=== PATIENT | female | born 1975 ===

== ENCOUNTER 2023-04-29 00:51 | Emergency (ER) | payer MEDICARE, MEDICAID, SELFPAY ==
[2023-04-29 00:54] VITALS: BP 99/67; PULSE 64; RESP 16; TEMP 36.1; O2SAT 100; BMI 29.2
--- NOTE | 2023-04-29 01:24 | ED_ITS ---
HPI - General Adult General Chief complaint: Abdominal Pain Stated complaint: Abdominal Pain Time Seen by Provider: 04/29/23 01:13 Source: patient Mode of arrival: ambulatory Limitations: no limitations History of Present Illness HPI narrative: Rule female coming in today complaining of 22 hours of diffuse abdominal discomfort. Nothing makes it better or worse. Pain is located everywhere from the bottom of the chest all the way down to the suprapubic area. She denies nausea or vomiting. No fevers or chills. She has been eating today without difficulty, had a piece of pizza about 1 hour ago. Patient's past medical history is complex: Chronic anemia, chronic abdominal pain, multiple sclerosis, unspecified visual loss that has resolved, chronic pain syndrome with chronic back pain, abdominal and leg pain, depression, eating disorder, personality disorder, ADHD, lupus, rheumatoid arthritis, vitamin-D deficiency, insomnia, neurogenic bladder with suprapubic catheter in place, subclinical hypothyroidism, hypersomnolence disorder during the daytime, history of narcotic use on a controlled substance agreement, asthma, recurrent myalgia and myositis, history of optic nerve injury, sensory ataxia, COPD, medical cannabis use, type 2 diabetes Past surgical history includes cataract removal, it EGD, cholecystectomy, total abdominal hysterectomy and bilateral salpingo oophorectomy, tonsillectomy and adenoidectomy, suprapubic catheter insertion. Medications include Adderall amantadine Abilify Lipitor Zyrtec dimethyl fumarate Trulicity Lunesta Pepcid Flonase Synthroid Linzess omeprazole Zofran Ditropan oxycodone Paxil MiraLax Zanaflex Valtrex Related Data Previous Rx's Medication Instructions Recorded sulfamethoxazole 800 1 tab PO BID 5 days #10 tabs 04/29/23 mg-trimethoprim 160 mg tablet (Bactrim DS) Allergies Allergy/AdvReac Type Severity Reaction Status Date / Time hydromorphone [From Dilaudid] Allergy Intermediate Chest Pain Verified 04/29/23 01:00 morphine Allergy Intermediate Chest Pain Verified 04/29/23 01:00 Penicillins Allergy Intermediate Hives Verified 04/29/23 01:00 Review of Systems Status of ROS: Reports: 10 or more systems reviewed and unremarkable except as noted in History and below Exam Narrative: Exam Narrative: Well-nourished well-developed patient in no acute distress. Alert and oriented x3. Answers questions appropriately. Mood and affect are appropriate. Thoughts are goal oriented and rational. No tangential or magical thinking noted. Patient speaks in full sentences without needing to catch her breath. Patient is not appear ill or toxic. Lying in bed comfortably. HEENT: Normocephalic atraumatic. Pupils are equally round reactive to light. Extraocular muscles are intact, does have strabismus. Conjunctivae are moist without any icterus noted. Moist mucous membranes. Posterior pharynx is normal. Neck is soft without any lymphadenopathy or thyromegaly. No masses are appreciated. Cardiovascular: Heart is regular rate and rhythm S1 and S2 are present without any murmurs. Lungs: Clear to auscultation bilaterally no wheezes rhonchi or rales are appreciated. Patient takes deep breaths without any discomfort. Abdomen: Soft and nondistended with normal bowel sounds. With palpation patient complains of pain with any touch, however, when I am auscultating with a stethoscope, I can apply very firm pressure with the stethoscope and patient does not complain of discomfort anywhere. Suprapubic catheters in place. She does smell strongly of urine. The skin around the catheter is red and irritated. Extremities: Bilateral lower extremities are without edema. Normal DP and PT pulses. Skin: Well perfused. Const: Vital Signs, click to edit/add: Vital Signs - 24 hr 04/29/23 00:54 Temperature 97.0 F L Pulse Rate [Left P ulse Oximeter] 64 Respiratory Rate 16 Blood Pressure [Ri ght Upper Arm] 99/67 Pulse Oximetry 100 Oxygen Delivery Me thod Room Air Course Vital Signs Vital signs: Initial Vital Signs Temperature 97.0 F L 04/29/23 00:54 Temperature Source Temporal Artery Scan 04/29/23 00:54 Pulse Rate 64 04/29/23 00:54 Pulse Rhythm Regular 04/29/23 00:54 Respiratory Rate 16 04/29/23 00:54 Blood Pressure 99/67 04/29/23 00:54 Blood Pressure Mean 77 04/29/23 00:54 Blood Pressure Position Sitting 04/29/23 00:54 Pulse Oximetry 100 04/29/23 00:54 Oxygen Delivery Method Room Air 04/29/23 00:54 Vital Signs Temperature 97.0 F L 04/29/23 00:54 Pulse Rate 64 04/29/23 00:54 Respiratory Rate 16 04/29/23 00:54 Blood Pressure 99/67 04/29/23 00:54 Pulse Oximetry 100 04/29/23 00:54 Oxygen Delivery Method Room Air 04/29/23 00:54 Temperature 97.0 F L 04/29/23 00:54 Pulse Rate 64 04/29/23 00:54 Respiratory Rate 16 04/29/23 00:54 Blood Pressure 99/67 04/29/23 00:54 Pulse Oximetry 100 04/29/23 00:54 Oxygen Delivery Method Room Air 04/29/23 00:54 Medical Decision Making MDM Narrative Medical decision making narrative: 48-year-old female coming in today complaining of abdominal discomfort. Her exam is quite benign. She has been eating and drinking without difficulty. She is not having any fevers or chills. She is not having diarrhea. She is not having any changes in the color or smell of her urine. At this time we discussed suprapubic catheter hygiene and skin cares around the catheter. concerned about the possibility of developing infection in that area so put her on Bactrim DS p.o. b.i.d.. Medical Records Medical records reviewed: Yes I reviewed the patient's medical records Discharge Plan Discharge Additional Instructions: Keep area around the suprapubic catheter clean and dry. Recommend placing a towel in the urine change in that tall frequently throughout the day. You should follow-up with your primary care provider or surgeon to discuss placement of this catheter and if it needs to be changed. Okay to start antibiotic tomorrow for infection of the skin around the suprapubic catheter site. Prescriptions: New sulfamethoxazole-trimethoprim [Bactrim DS] 800-160 mg tablet 1 tab PO BID 5 Days Qty: 10 0RF Stand Alone Forms: [employer] Info Instructions
== END 2023-04-29 01:42 | disposition home or self-care (01) ==
LOC: ED 01:33
PROVIDERS: Emergency Provider Family Medicine; PCP Physician Assistant
DX: R10.9 Unspecified abdominal pain (principal)
CPT/HCPCS: 99283; 99284

== ENCOUNTER 2023-07-04 10:04 | Outpatient (CLI) | payer MEDICARE, MEDICAID, SELFPAY ==
--- OUTSIDE RECORDS SUMMARY | 2023-07-04 10:20 | XMS_ITS | Referral Summary ---
Author Organization [facility] Address [address] [place] [id number] Care Team Providers Care Crocheter Name Role Phone Roddy Trevino Primary Care Provider [phone] Allergies Active Allergy Reactions Criticality Noted Date Comments Propoxyphene N-Apap 10/01/2008 Valproic Acid Other (See Comments),Rash High 01/16/2013 Other reaction= chest pain Rash was Itchy Ibuprofen Other (See Comments) 10/01/2008 Tongue swells Latex 10/01/2008 Morphine And Codeine Itching 10/01/2008 Zoloft 10/01/2008 Medications Medication Sig Dispensed Refills Start Date End Date Status VALTREX 500 MG OR TABS 1 TABLET DAILY Active OMEPRAZOLE 20 MG OR CPDR 1 CAPSULE DAILY Active RESTASIS 0.05 % OP EMUL 2 times daily Active EPI E-Z PEN KIRAN 1:1000 IJ 1 TIME ONLY as needed Active HYDROXYZINE HCL POIndications:Relapsin g-remitting multiple sclerosis (H),Personal history of urinary tract infection,Hematuria Take 50 mg by mouth Active RaNITidine HCl (ZANTAC PO)Indications:Relapsi ng-remitting multiple sclerosis (H),Personal history of urinary tract infection,Hematuria Take 150 mg by mouth Active Varenicline Tartrate (CHANTIX PO)Indications:Relapsi ng-remitting multiple sclerosis (H),Personal history of urinary tract infection,Hematuria Take 1 mg by mouth Active DULoxetine HCl (CYMBALTA PO)Indications:Relapsi ng-remitting multiple sclerosis (H),Personal history of urinary tract infection,Hematuria Take 60 mg by mouth Active NORTRIPTYLINE HCL POIndications:Relapsin g-remitting multiple sclerosis (H),Personal history of urinary tract infection,Hematuria Take 150 mg by mouth Active Cyclobenzaprine HCl (FLEXERIL PO)Indications:Relapsi ng-remitting multiple sclerosis (H),Personal history of urinary tract infection,Hematuria Activ e Linaclotide (LINZESS PO)Indications:Relapsi ng-remitting multiple sclerosis (H),Personal history of urinary tract infection,Hematuria Take 145 mcg by mouth every morning (before breakfast) Active Active Problems Problem Noted Date Diagnosed Date Relapsing-remitting multiple sclerosis 7 Immunizations Name Administration Dates Next Due Flu, Unspecified 11/09/2009 TDAP (Adacel,Boostrix) 06/01/2011 Social History Tobacco Use Types Packs/Day Years Used Date Smoking Tobacco: Every Day Cigarettes Smokeless Tobacco: Never Tobacco Cessation:Ready to Q uit: Yes; Counseling Given: Yes Alcohol Use Standard Drinks/Week Comments No 0 (1 standard drink = 0.6 oz pur e alcohol) Sex and Gender Information Value Date Recorded Sex Assigned at Not on file Gender Identity Not on file Sexual Orientation Not on file Last Filed Vital Signs Vital Sign Reading Time Taken Comments Blood Pressure 114/69 07/11/2017 7:00 PM CDT Simultaneous filing. User may not have seen previous data. Pulse 99 07/11/2017 7:00 PM CDT Temperature 36.6 ??C (97.9 ??F) 07/11/2017 2 :08 PM CDT Respiratory Rate 14 07/11/2017 7:00 PM CDT Oxygen Saturation 92% 07/11/2017 7:0 0 PM CDT Inhaled Oxygen Concentration - - Weight 90.1 kg (198 lb 9.6 oz) 04/10/2012 9:25 AM IT SUPPORT ENGINEER Height 171 cm (5' 7.32) 04/10/2012 9:2 5 AM IT SUPPORT ENGINEER Body Mass Index 30.81 04/10/2012 9:25 AM IT SUPPORT ENGINEER Plan of Treatment Not on file Care Teams Crocheter Relationship Specialty Start Date End Date Roddy Trevino PCP - General 12/14/10
--- OUTSIDE RECORDS SUMMARY | 2023-07-04 10:20 | XMS_ITS | Clinical Summary ---
Author Organization [facility] Address [address] [place] [id number] Care Team Providers Care Inspector Outside Production Name Role Phone Roddy Trveino Primary Care Provider [phone] Allergies Active Allergy Reactions Criticality Noted Date [...] (198 lb 9.6 oz) 04/10/2012 9:25 AM FIELD TRAFFIC INVESTIGATOR Height 171 cm (5' 7.32) 04/10/2012 9:2 5 AM FIELD TRAFFIC INVESTIGATOR Body Mass Index 30.81 04/10/2012 9:25 AM FIELD TRAFFIC INVESTIGATOR Plan of Treatment Not on file Care Teams Inspector Outside Production Relationship Specialty Start Date End Date Roddy Trevino PCP - General 12/14/10
--- OUTSIDE RECORDS SUMMARY | 2023-07-04 10:21 | XMS_ITS | Patient Health Record ---
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 Name Role Phone Laurence Mujica Primary Care Provider UnavailDavid Tripathi Unavailable [phone] Raymond Jurado DO Unavailable Unavailable Victor Hugo Wheat Unavailable [phone] Anton Griffin Unavailable [phone] Rod Golden Unavailable [phone] Fabian Walsh Unavailable [phone] ALLERGIES Allergen (clinical drug ingredient) Drug/Non Drug Allergy documented on EMR Reaction Allergy Type Onset Date Status fentanyl Fentanyl Hallucinations Drug Allergy Ac tive RESULTS Component Value Reference Range Notes Urine toxicology Reviewed date:08/31/2022 02:01:33 PM Interpretation:See Results Performing Lab: Notes/Report: See Results CARLOS Buprenophine OPI 300 1000 AMP Ethanol MET Creatinine MDMA pH Specific [place] BAR BZO OXY See Results MTD Urine toxicology Reviewed date:08/31/2022 02:01:33 PM Interpretation:See Results Performing Lab: Notes/Report: See Results CARLOS Buprenophine OPI 300 1000 AMP Ethanol MET Creatinine MDMA pH Specific [place] BAR BZO OXY See Results MTD Urine toxicology Reviewed date:05/21/2023 12:21:59 PM Interpretation:See Results Performing Lab: Notes/Report: See Results CARLOS Buprenophine OPI 300 0 AMP Ethanol MET Creatinine MDMA pH Specific [place] BAR BZO OXY See Results MTD Urine toxicology Reviewed date:05/21/2023 12:21:59 PM Interpretation:See Results Performing Lab: Notes/Report: See Results CARLOS Buprenophine OPI 300 0 AMP Ethanol MET Creatinine MDMA pH Specific [place] BAR BZO OXY See Results MTD Urine toxicology Reviewed date:11/14/2022 03:40:36 PM Interpretation:See Results Performing Lab: Notes/Report: See Results CARLOS Buprenophine OPI 300 0 AMP Ethanol MET Creatinine MDMA pH Specific [place] BAR BZO OXY See Results MTD Urine toxicology Reviewed date:11/14/2022 03:40:36 PM Interpretation:See Results Performing Lab: Notes/Report: See Results CARLOS Buprenophine OPI 300 0 AMP Ethanol MET Creatinine MDMA pH Specific [place] BAR BZO OXY See Results MTD Urine toxicology Reviewed date:03/07/2023 03:21:55 PM Interpretation:See Results Performing Lab: Notes/Report: See Results CARLOS Buprenophine OPI 300 1000 AMP Ethanol MET Creatinine MDMA pH Specific [place] BAR BZO OXY See Results MTD REASON FOR REFERRAL No Information MEDICATIONS Medication SIG (Take, Route, Fr equency, Duration) Notes Start Date End Date Status oxyCODONE HCl 10 MG 1 tablet as needed O rally (ok to fill 07/06/2023 to start 07/10/23) every 6 hrs for 30 days 06/06/2023 Active SOCIAL HISTORY Tobacco Use: Social History Observation Description Date Details (start date - stop date) Former Smoker NA - 09/05/2022 Sex Assigned At : Social History Observation Description Sex Assigned At Unknown Tobacco Use/Smoking: Question Answer Notes Are you a former smoker when did you quit smoking 09/05/2022 Alcohol Screen Question Answer Notes Did you have a drink containing alcohol in the p ast year? No Points 0 Interpretation Negative PROBLEMS Problem Type ICD Code Onset Dates Problem Status W/U Status Risk SNOMED Code Notes Problem Opioid dependence, uncomplicated (F11.20) Active confirmed Opioid dependence (88803524) Problem Personality disorder, unspecified (F60.9) 9 Active confirmed Unspecified Personality Disorder; rule out mixed ( borderline, dependent, negativistic, explosive traits); rule out organic (59650657) Problem Other chronic pain (G89.29) Active confirmed Chronic pain (96797309) Problem Rheumatoid arthritis, unspecified (M06.9) Active confirmed Rheumatoid arthritis (85633896) Problem Systemic lupus erythematosus, unspecified (M32.9) Active confirmed Systemic lupus erythematosus (75114153) Problem Pain in leg, unspecified (M79.606) Active confirmed Pain in limb (07558960) Problem Fibromyalgia (M79.7) Active confirmed Fibromyalgia (768832670) VITAL SIGNS Blood pressure diastolic 72 mm Hg 06/06/2023 Height 69 in 06/06/2023 Blood pressure systolic 118 mm Hg 06/06/2023 Weight 187 lbs 06/06/2023 BMI 27.61 kg/m2 06/06/2023 Encounters Encounter Location Date Provider Diagnosis [facility] [address] [place] [address] 07/04/2022 Anton Bolick Pain in leg, unspecified M79.606 ; Fibromyalgia M79.7 and Other chronic pain G89.29 [facility] [address] [place] [address] 07/04/2022 Anton Bolick [facility] [address] [place] [address] 08/01/2022 Anton Bolick Pain in leg, unspecified M79.606 ; Fibromyalgia M79.7 ; Other chronic pain G89.29 ; Opioid dependence, uncomplicated F11.20 and FDC (current) use of opiate analgesic Z79.891 [facility] [address] [place] [address] 08/22/2022 Victor Hugo Wheat [address] [facility] [address] [place] [address] 08/30/2022 Anton Bolick Pain in leg, unspecified M79.606 ; Fibromyalgia M79.7 and Other chronic pain G89.29 [address] [facility] [address] [place] [address] 09/27/2022 Anton Bolick Pain in leg, unspecified M79.606 ; Fibromyalgia M79.7 and Other chronic pain G89.29 [address] [facility] [address] [place] [address] 10/25/2022 Anton Bolick Pain in leg, unspecified M79.606 ; Fibromyalgia M79.7 ; Other chronic pain G89.29 ; FDC (current) use of opiate analgesic Z79.891 and Opioid dependence, uncomplicated F11.20 [facility] [address] [place] [address] [address] [place] [address] 10/26/2022 Anton Bolick Other chronic pain G89.29 [address] [facility] [address] [place] [address] 11/21/2022 Anton Bolick Pain in leg, unspecified M79.606 ; Fibromyalgia M79.7 and Other chronic pain G89.29 [address] [facility] [address] [place] [address] 12/20/2022 Anton Bolick Pain in leg, unspecified M79.606 ; Fibromyalgia M79.7 and Other chronic pain G89.29 [facility] [address] [place] [address] [address] [place] [address] 12/25/2022 Anton Bolick Other chronic pain G89.29 [address] [facility] [address] [place] [address] 01/16/2023 Anton Bolick Pain in leg, unspecified M79.606 ; Fibromyalgia M79.7 and Other chronic pain G89.29 [address] [facility] [address] [place] [address] 2023 Anton Bolick Pain in leg, unspecified M79.606 ; Fibromyalgia M79.7 ; Other chronic pain G89.29 ; FDC (current) use of opiate analgesic Z79.891 ; Opioid dependence, uncomplicated F11.20 and Encounter for screening for other disorder Z13.89 [facility] [address] [place] [address] [address] [place] [address] 2023 Anton Bolick [address] [facility] [address] [place] [address] 02/01/2023 Fabian Perezythe [address] [facility] [address] [place] [address] 02/06/2023 Anton Bolick Pain in leg, unspecified M79.606 ; Fibromyalgia M79.7 ; Other chronic pain G89.29 ; FDC (current) use of opiate analgesic Z79.891 ; Opioid dependence, uncomplicated F11.20 and Encounter for screening for other disorder Z13.89 [facility] [address] [facility] [address] 02/06/2023 Anton Bolick [address] [facility] [address] [place] [address] 02/21/2023 Anton Bolick [address] [facility] [address] [place] [address] 03/07/2023 Anton Bolick Pain in leg, unspecified M79.606 ; Fibromyalgia M79.7 ; Other chronic pain G89.29 ; 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 ; Opioid dependence, uncomplicated F11.20 and Encounter for screening for other disorder Z13.89 [address] [facility] [address] [place] [address] 03/08/2023 Rod Golden Pain in leg, unspecified M79.606 ; Fibromyalgia M79.7 and Other chronic pain G89.29 [address] [facility] [address] [place] [address] 03/13/2023 Anton Bolick Pain in leg, unspecified M79.606 ; Fibromyalgia M79.7 and Other chronic pain G89.29 [address] [facility] [address] [place] [address] 04/10/2023 Anton Bolick Fibromyalgia M79.7 ; Pain in leg, unspecified M79.606 and Other chronic pain G89.29 [address] [facility] [address] [place] [address] 05/08/2023 Anton Bolick Fibromyalgia M79.7 ; Pain in leg, unspecified M79.606 ; Other chronic pain G89.29 ; 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 and Opioid dependence, uncomplicated F11.20 [address] [facility] [address] [place] [address] 05/09/2023 Anton Bolick [facility] [address] [place] [address] 05/11/2023 Anton Bolick [address] [facility] [address] [place] [address] 06/06/2023 Anton Griffin Fibromyalgia M79.7 ; Pain in leg, unspecified M79.606 and Other chronic pain G89.29 [address] [facility] [address] [place] [address] 07/04/2023 Anton Griffin Other chronic pain G89.29 ASSESSMENTS Encounter Date Diagnosis Assessment Notes Treatment Notes Treatment Clinical Notes 07/04/2022 Pain in leg, unspecified (ICD-10 - M79.606) 08/01/2022 Pain in leg, unspecified (ICD-10 - M79.606) 08/30/2022 Pain in leg, unspecified (ICD-10 - M79.606) 09/27/2022 Pain in leg, unspecified (ICD-10 - M79.606) 12/20/2022 Pain in leg, unspecified (ICD-10 - M79.606) 12/25/2022 Other chronic pain (ICD-10 - G89.29) 01/16/2023 Pain in leg, unspecified (ICD-10 - M79.606) 2023 Pain in leg, unspecified (ICD-10 - M79.606) 02/06/2023 Pain in leg, unspecified (ICD-10 - M79.606) 03/07/2023 Pain in leg, unspecified (ICD-10 - M79.606) 03/13/2023 Pain in leg, unspecified (ICD-10 - M79.606) 05/08/2023 Pain in leg, unspecified (ICD-10 - M79.606) 05/08/2023 Fibromyalgia (ICD-10 - M79.7) 04/10/2023 Pain in leg, unspecified (ICD-10 - M79.606) 04/10/2023 Fibromyalgia (ICD-10 - M79.7) 06/06/2023 Fibromyalgia (ICD-10 - M79.7) 07/04/2023 Other chronic pain (ICD-10 - G89.29) 03/08/2023 Pain in leg, unspecified (ICD-10 - M79.606) 11/21/2022 Pain in leg, unspecified (ICD-10 - M79.606) 10/26/2022 Other chronic pain (ICD-10 - G89.29) 10/25/2022 Pain in leg, unspecified (ICD-10 - M79.606) 10/25/2022 Fibromyalgia (ICD-10 - M79.7) 11/21/2022 Fibromyalgia (ICD-10 - M79.7) 03/08/2023 Fibromyalgia (ICD-10 - M79.7) 05/08/2023 Other chronic pain (ICD-10 - G89.29) Mariana returns to clinic today for a follow up evaluation regarding her chronic pain. I have reviewed the [facility] database and did not find any inconsistencies. We discussed her current symptoms and medications. I will refill her Oxycodone as it continues to provide moderate relief without side effects. She completed an updated UDS today for compliance monitoring. This treatment plan was reviewed with Mariana, and she was agreeable. I will continue to monitor her progress and she will follow up in one month or sooner if needed. Plan:1. Refill Oxycodone2. UDS today3. Follow up in 1 month Discharge instructions reviewed verbally. Discussed the risks/benefits of prescribed medication. The patient is aware that medication may be discontinued at any time due to poor compliance with visits, and recommended treatment and/or if patient doesn't adhere to the signed pain contract. The patient was instructed to return to the office as scheduled and call with any questions, problems or concerns. 06/06/2023 Pain in leg, unspecified (ICD-10 - M79.606) 03/13/2023 Fibromyalgia (ICD-10 - M79.7) 04/10/2023 Other chronic pain (ICD-10 - G89.29) Mariana returns to clinic today for a follow up evaluation regarding her chronic knees to feet pain. I have reviewed the [facility] database and did not find any inconsistencies. We discussed her current symptoms and medications. I will continue with a treatment plan consisting of medication management at this time. I advised Mariana to proceed with her sleep study as scheduled in 05/2023. She reports that they plan to determine if she has sleep apnea at that time. Regarding medications, I have rotated Mariana from Percocet 10-325MG QID to Oxycodone 10MG QID due to experiencing GI upset as a result of taking the Percocet. This treatment plan was reviewed with Mariana, and she was agreeable. I will continue to monitor her progress and she will follow up in one month or sooner if needed. Plan: 1. Proceed with sleep study in 05/2023 2. Rotate from Percocet 10-325MG QID to Oxycodone 10MG QID 3. Follow up in 1 month Discharge instructions reviewed verbally. Discussed the risks/benefits of prescribed medication. The patient is aware that medication may be discontinued at any time due to poor compliance with visits, and recommended treatment and/or if patient doesn't adhere to the signed pain contract. The patient was instructed to return to the office as scheduled and call with any questions, problems or concerns. 03/07/2023 Fibromyalgia (ICD-10 - M79.7) 02/06/2023 Fibromyalgia (ICD-10 - M79.7) 2023 Fibromyalgia (ICD-10 - M79.7) 01/16/2023 Fibromyalgia (ICD-10 - M79.7) 12/20/2022 Fibromyalgia (ICD-10 - M79.7) 09/27/2022 Fibromyalgia (ICD-10 - M79.7) 08/30/2022 Fibromyalgia (ICD-10 - M79.7) 08/01/2022 Fibromyalgia (ICD-10 - M79.7) 07/04/2022 Fibromyalgia (ICD-10 - M79.7) 07/04/2022 Other chronic pain (ICD-10 - G89.29) Mariana is a 47 year old female who returns to clinic today for follow up of chronic dispersed body pain. I have reviewed the [facility] database and did not find any inconsistencies. We discussed her current symptoms and medications. I will continue with a treatment plan consisting of medication management at this time. Regarding medications, I have refilled her Dilaudid 4mg q6 hours as this medication continues to provide moderate pain relief without side effects. This treatment plan was reviewed with Mariana, and she was agreeable. I will continue to monitor her progress and she will follow up in one month or sooner if needed. Plan:1. Refill Dilaudid2. Proceed with psychiatry appointment as scheduled3. Follow up in 1 month, call patient to schedule Discharge instructions reviewed verbally. Discussed the risks/benefits of prescribed medication. The patient is aware that medication may be discontinued at any time due to poor compliance with visits, and recommended treatment and/or if patient doesn't adhere to the signed pain contract. The patient was instructed to return to the office as scheduled and call with any questions, problems or concerns. 08/01/2022 Other chronic pain (ICD-10 - G89.29) Mariana is a 47 year old female who returns to clinic today for follow up of chronic dispersed body pain. I have reviewed the [place] [employer] database and did not find any inconsistencies. We discussed her current symptoms and medications. I will continue with a treatment plan consisting of medication management at this time. Due to SE from Dilaudid, I will rotate her back to Percocet at 10-325mg QID. She consents to an updated UDS today for compliance monitoring and we discussed that another absence of medication in the test will result in termination of contract. This treatment plan was reviewed with Mariana, and she was agreeable. I will continue to monitor her progress and she will follow up in one month or sooner if needed. Plan:1. Rotate from Dilaudid to Percocet 10-325mg QID2. UDS today3. Follow up in 1 month Discharge instructions reviewed verbally. Discussed the risks/benefits of prescribed medication. The patient is aware that medication may be discontinued at any time due to poor compliance with visits, and recommended treatment and/or if patient doesn't adhere to the signed pain contract. The patient was instructed to return to the office as scheduled and call with any questions, problems or concerns. 09/27/2022 Other chronic pain (ICD-10 - G89.29) Mariana is a 47-year-old female who returns to clinic today for follow up of chronic dispersed body pain. I have reviewed the [place] [employer] database and did not find any inconsistencies. We discussed her current symptoms and medications. I will continue with a treatment plan consisting of medication management at this time. I refilled the patient's Percocet as she notes moderate pain relief without side effects from her current regimen. 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 This treatment plan was reviewed with Mariana, and she was agreeable. I will continue to monitor her progress and she will follow up in one month or sooner if needed. Plan:1. Refill Percocet 10-325mg QID2. Continue to f/u with ID re: actinomyces infection3. Follow up in one month Discharge instructions reviewed verbally. Discussed the risks/benefits of prescribed medication. The patient is aware that medication may be discontinued at any time due to poor compliance with visits, and recommended treatment and/or if patient doesn't adhere to the signed pain contract. The patient was instructed to return to the office as scheduled and call with any questions, problems or concerns. 12/20/2022 Other chronic pain (ICD-10 - G89.29) Mariana returns to clinic today for follow up of chronic dispersed body pain. I have reviewed the [facility] database and did not find any inconsistencies. We discussed her current symptoms and medications. I will continue with a treatment plan consisting of medication management at this time. Regarding medication, I am refilling her Percocet today since this medication continues to provide pain relief without side effects. I encourage Mariana proceeds with following up with her PCP regarding her blood infection and I encouraged her to mention the amnesia episodes she's been experiencing for two months. I recommended she follows up with an infection disease provider, as she mentioned doctor are unsure what caused her blood infection. This treatment plan was reviewed with Mariana, and she was agreeable. I will continue to monitor her progress, and she will follow up in one month or sooner if needed. Plan:1. Refill Percocet 10-325 mg QID2. Follow up with PCP regarding blood infection and amnesia episodes 3. Follow up with infection disease 4. Follow-up in one month Discharge instructions reviewed verbally. Discussed the risks/benefits of prescribed medication. The patient is aware that medication may be discontinued at any time due to poor compliance with visits, and recommended treatment and/or if patient doesn't adhere to the signed pain contract. The patient was instructed to return to the office as scheduled and call with any questions, problems or concerns. 01/16/2023 Other chronic pain (ICD-10 - G89.29) Mariana returns to clinic today for follow up of chronic dispersed body pain. I have reviewed the [facility] database and did not find any inconsistencies. We discussed her current symptoms and medications. I will continue with a treatment plan consisting of medication management at this time. Regarding medication, I am refilling her Percocet today since this medication continues to provide pain relief without side effects. I encourage Mariana proceeds with following up with her PCP regarding her blood infection and I encouraged her to mention the amnesia episodes she's been experiencing for two months. I recommended she follows up with an infection disease provider, as she mentioned doctor are unsure what caused her blood infection. This treatment plan was reviewed with Mariana, and she was agreeable. I will continue to monitor her progress, and she will follow up in one month or sooner if needed. Plan:1. Refill Percocet 10-325 mg QID2. Follow up with PCP regarding blood infection and amnesia episodes 3. Follow up with infection disease 4. Follow-up in one month Discharge instructions reviewed verbally. Discussed the risks/benefits of prescribed medication. The patient is aware that medication may be discontinued at any time due to poor compliance with visits, and recommended treatment and/or if patient doesn't adhere to the signed pain contract. The patient was instructed to return to the office as scheduled and call with any questions, problems or concerns. 08/30/2022 Other chronic pain (ICD-10 - G89.29) Mariana returns to clinic today for a follow up evaluation regarding her chronic dispersed body pain. I have reviewed the [place] [employer] database and did not find any inconsistencies. We discussed her current symptoms and medications. I will continue with a treatment plan consisting of medication management at this time. Regarding medication, I refilled her Percocet 10-325mg QID as it has been providing her with adequate pain relief. This treatment plan was reviewed with her, and she was agreeable. I will continue to monitor her progress and she will follow up in one month or sooner if needed. Plan: 1. Refill Percocet 10-325mg QID2. Follow up in one month Discharge instructions reviewed verbally. Discussed the risks/benefits of prescribed medication. The patient is aware that medication may be discontinued at any time due to poor compliance with visits, and recommended treatment and/or if patient doesn't adhere to the signed pain contract. The patient was instructed to return to the office as scheduled and call with any questions, problems or concerns. 2023 Other chronic pain (ICD-10 - G89.29) Mariana returns to clinic today for follow up of chronic dispersed body pain. I have reviewed the [place] [employer] database and did not find any inconsistencies. We discussed her current symptoms and medications. I will continue with a treatment plan consisting of medication management at this time. Regarding medication, she consented to an updated pain contract today for ongoing opioid compliance to allow me to continue to prescribe her chronic pain medication. I am also rotating her from Percocet to Dilaudid today to see if this will provide her with better pain relief than. This treatment plan was reviewed with Mariana, and she was agreeable. I will continue to monitor her progress, and she will follow up in one month or sooner if needed. Plan:1. Stop Percocet2. Start Dilaudid3. Updated pain contract today4. Follow-up in one month Discharge instructions reviewed verbally. Discussed the risks/benefits of prescribed medication. The patient is aware that medication may be discontinued at any time due to poor compliance with visits, and recommended treatment and/or if patient doesn't adhere to the signed pain contract. The patient was instructed to return to the office as scheduled and call with any questions, problems or concerns. 02/06/2023 Other chronic pain (ICD-10 - G89.29) 03/07/2023 Other chronic pain (ICD-10 - G89.29) 03/13/2023 Other chronic pain (ICD-10 - G89.29) Mariana returns to clinic today for a follow up evaluation regarding her chronic knees to feet pain. I have reviewed the [facility] database and did not find any inconsistencies. We discussed her current symptoms and medications. I will continue with a treatment plan consisting of medication management at this time. Regarding medications, I stated Mariana on Percocet 10-325mg as I believe it will provide her with pain relief. This treatment plan was reviewed with Mariana, and she was agreeable. I will continue to monitor her progress and she will follow up in one month or sooner if needed. Plan:1. Start Percocet 10-325mg 2. Follow up in 1 month Discharge instructions reviewed verbally. Discussed the risks/benefits of prescribed medication. The patient is aware that medication may be discontinued at any time due to poor compliance with visits, and recommended treatment and/or if patient doesn't adhere to the signed pain contract. The patient was instructed to return to the office as scheduled and call with any questions, problems or concerns. 05/08/2023 FDC (current) use of opiate analgesic (ICD-10 - Z79.891) 06/06/2023 Other chronic pain (ICD-10 - G89.29) Mariana returns to clinic today for a follow up evaluation regarding her chronic pain. I have reviewed the [place] [employer] database and did not find any inconsistencies. We discussed her current symptoms and medications. I will refill her Oxycodone as it continues to provide moderate relief without side effects. Her recent UDS was reviewed and found to be consistent. This treatment plan was reviewed with Mariana, and she was agreeable. I will continue to monitor her progress and she will follow up in one month or sooner if needed. Plan:1. Refill Oxycodone2. UDS reviewed; consistent3. Follow up in 1 month Discharge instructions reviewed verbally. Discussed the risks/benefits of prescribed medication. The patient is aware that medication may be discontinued at any time due to poor compliance with visits, and recommended treatment and/or if patient doesn't adhere to the signed pain contract. The patient was instructed to return to the office as scheduled and call with any questions, problems or concerns. 11/21/2022 Other chronic pain (ICD-10 - G89.29) Mariana returns to clinic today for follow up of chronic dispersed body pain. I have reviewed the [facility] database and did not find any inconsistencies. We discussed her current symptoms and medications. I will continue with a treatment plan consisting of medication management at this time. Mariana will proceed with her psychiatrist appointment on 11/23/22. I recommended she discusses getting a referral from her psychiatrist to a psychologist so that she can proceed with talk therapy and continue to work on her anxiety. I am also refilling her Percocet today since this medication continues to provide pain relief without side effects at this time. This treatment plan was reviewed with Mariana, and she was agreeable. I will continue to monitor her progress, and she will follow up in one month or sooner if needed. Plan:1. Refill Percocet 10-325mg QID2. Follow up with psych on 11/21 re: Valium3. Follow-up in one month Discharge instructions reviewed verbally. Discussed the risks/benefits of prescribed medication. The patient is aware that medication may be discontinued at any time due to poor compliance with visits, and recommended treatment and/or if patient doesn't adhere to the signed pain contract. The patient was instructed to return to the office as scheduled and call with any questions, problems or concerns. 03/08/2023 Other chronic pain (ICD-10 - G89.29) Mariana returns to clinic today for a follow up evaluation regarding her chronic pain. I have reviewed the [place] [employer] database and we discussed her current symptoms and medications. Due to her recent procedure and [facility] treatment, Mariana has been prescribed sufficient pain medication for the time being. I have obtained ROIs to [facility] and the [facility] for further evaluation of her most recent treatment history. Otherwise she will follow up in a week to further discuss medication management. This treatment plan was reviewed with Mariana, and she was agreeable. Plan:1. BRITNEY to [facility] and [facility]2. Continue Oxycodone 20mg BID3. Follow up in 1 week to discuss medication management Discharge instructions reviewed verbally. Discussed the risks/benefits of prescribed medication. The patient is aware that medication may be discontinued at any time due to poor compliance with visits, and recommended treatment and/or if patient doesn't adhere to the signed pain contract. The patient was instructed to return to the office as scheduled and call with any questions, problems or concerns. 10/25/2022 Other chronic pain (ICD-10 - G89.29) Mariana returns to clinic today for follow up of chronic dispersed body pain. I have reviewed the [place] [employer] database and did not find any inconsistencies. We discussed her current symptoms and medications. I will continue with a treatment plan consisting of medication management at this time. Mariana consented to a (random) UDS today for high risk compliance monitoring. I refiled her Percocet as she notes moderate relief on current regimen. Patient will be following up with psychologist on 10/26/22 regarding Valium medication. This treatment plan was reviewed with Mariana, and she was agreeable. I will continue to monitor her progress and she will follow up in one month or sooner if needed. Plan:1. Refill Percocet 10-325mg QID 2. Collected UDS today 3. Follow up with psych on 10/26 re: Valium4. Follow up in one month Discharge instructions reviewed verbally. Discussed the risks/benefits of prescribed medication. The patient is aware that medication may be discontinued at any time due to poor compliance with visits, and recommended treatment and/or if patient doesn't adhere to the signed pain contract. The patient was instructed to return to the office as scheduled and call with any questions, problems or concerns. 10/25/2022 FDC (current) use of opiate analgesic (ICD-10 - Z79.891) 05/08/2023 Opioid dependence, uncomplicated (ICD-10 - F11.20) 03/07/2023 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 (ICD-10 - Z79.891) 2023 FDC (current) use of opiate analgesic (ICD-10 - Z79.891) 02/06/2023 FDC (current) use of opiate analgesic (ICD-10 - Z79.891) 08/01/2022 Opioid dependence, uncomplicated (ICD-10 - F11.20) 08/01/2022 FDC (current) use of opiate analgesic (ICD-10 - Z79.891) 2023 Opioid dependence, uncomplicated (ICD-10 - F11.20) 03/07/2023 Opioid dependence, uncomplicated (ICD-10 - F11.20) 02/06/2023 Opioid dependence, uncomplicated (ICD-10 - F11.20) 10/25/2022 Opioid dependence, uncomplicated (ICD-10 - F11.20) 2023 Encounter for screening for other disorder (ICD-10 - Z13.89) As a component of this patient being on a long-term controlled-substance medication for chronic pain we performed screening questionnaire tests for drug misuse (DAST), alcohol misuse (AUDIT), and mental health imbalances (PHQ-9 for depression and NICHOLAS-7 for anxiety) as recommended by the Centers for Disease Control to evaluate for risk factors for opioid-related harms before starting and periodically during continuation of opioid therapy. Along with the screening questionnaires, 15 minutes of time was used to assess and educate the patient on the risks of misusing pain medication and the risks of taking narcotic pain medication in conjunction with other mood altering substances such as alcohol, benzodiazepines and other drugs (prescribed or not). 02/06/2023 Encounter for screening for other disorder (ICD-10 - Z13.89) 03/07/2023 Encounter for screening for other disorder (ICD-10 - Z13.89) 07/04/2022 Jamilah Min, Navneet Lopez , am serving as a scribe to document services personally performed by Anton Griffin PA-C, based upon my observations and the provider's statements to me. All documentation has been reviewed by the aforementioned MIRELLA as well as Albin Michaud MD, prior to being entered into the official medical record. Albin Min MD attest that the above named individual is acting in scribe capacity, has observed Anton Monahancampbell's performance of the services and has documented them in accordance with her direction. The documentation recorded by the scribe accurately reflects the service Anton Griffin PA-C, personally performed and the decisions made by her. 08/01/2022 Other Navneet Min , am serving as a scribe to document services personally performed by Anton Griffin PA-C, based upon my observations and the provider's statements to me. All documentation has been reviewed by the vel VU as well as Albin Michaud MD, prior to being entered into the official medical record. Albin Min MD attest that the above named individual is acting in scribe capacity, has observed Anton Bolcampbell's performance of the services and has documented them in accordance with her direction. The documentation recorded by the scribe accurately reflects the service Anton Griffin PA-C, personally performed and the decisions made by her. 08/30/2022 Other Adyr Min, am serving as a scribe to document services personally performed by Anton Griffin PA-C, based upon my observations and the provider's statements to me. All documentation has been reviewed by the aforementioned MIRELLA. Anton Min PA-C, attest that the above named individual is acting in scribe capacity, has observed my performance of the services and has documented them in accordance with my direction. The documentation recorded by the scribe accurately reflects the service I personally performed and the decisions made during the clinic visit. 09/27/2022 Other Adry Min, am serving as a scribe to document services personally performed by Anton Griffin PA-C, based upon my observations and the provider's statements to me. All documentation has been reviewed by the aforementioned MIRELLA. Anton Min PA-C, attest that the above named individual is acting in scribe capacity, has observed my performance of the services and has documented them in accordance with my direction. The documentation recorded by the scribe accurately reflects the service I personally performed and the decisions made during the clinic visit. 10/25/2022 Other I, Adry Anjel bradley, am serving as a scribe to document services personally performed by Anton Griffin PA-C, based upon my observations and the provider's statements to me. All documentation has been reviewed by the aforementioned MIRELLA as well as Albin Michaud MD, prior to being entered into the official medical record. I, Albin Michaud MD attest that the above named individual is acting in scribe capacity, has observed Anton Griffin's performance of the services and has documented them in accordance with her direction. The documentation recorded by the scribe accurately reflects the services Anton Griffin PA-C and Albin Michaud MD personally performed and the decisions made by them. 11/21/2022 Other I, Maribel kong, am serving as a scribe to document services personally performed by Anton Griffin PA-C, based upon my observations and the provider's statements to me. All documentation has been reviewed by the aforementioned MRIELLA as well as Victor Hugo Wheat MD, prior to being entered into the official medical record. I, Victor Hugo Wheat MD attest that the above named individual is acting in scribe capacity, has observed Anton Griffin's performance of the services and has documented them in accordance with her direction. The documentation recorded by the scribe accurately reflects the service Anton Griffin PA-C, personally performed and the decisions made by her. 12/20/2022 Other Garret Min, am serving as a scribe to document services personally performed by Anton Griffin PA-C, based upon my observations and the provider's statements to me. All documentation has been reviewed by the aforementioned MIRELLA. I, Anton Griffin PA-C, attest that the above named individual is acting in scribe capacity, has observed my performance of the services and has documented them in accordance with my direction. The documentation recorded by the scribe accurately reflects the service I personally performed and the decisions made during the clinic visit. 01/16/2023 Other I, Chrisjenny Teixeira , am serving as a scribe to document services personally performed by Anton Griffin PA-C, based upon my observations and the provider's statements to me. All documentation has been reviewed by the aforementioned PANico as well as Albin Michaud MD, prior to being entered into the official medical record. I, Albin Michaud MD attest that the above named individual is acting in scribe capacity, has observed Anton Bolcampbell's performance of the services and has documented them in accordance with her direction. The documentation recorded by the scribe accurately reflects the service Anton Griffin PA-C, personally performed and the decisions made by her. 2023 Other I, Maribel kong, am serving as a scribe to document services personally performed by Anton Griffin PA-C, based upon my observations and the provider's statements to me. All documentation has been reviewed by the aforementioned MIRELLA. I, Anton Griffin PA-C, attest that the above named individual is acting in scribe capacity, has observed my performance of the services and has documented them in accordance with my direction. The documentation recorded by the scribe accurately reflects the service I personally performed and the decisions made during the clinic visit. 03/07/2023 Other I, Vickey Strong, am serving as a scribe to document services personally performed by Anton Griffin PA-C based upon my observations and the provider's statements to me. All documentation has been reviewed by the aforementioned doctor prior to being entered into the official medical record. I, Anton Griffin PA-C attest that the above named individual is acting in scribe capacity, has observed my performance of the services and has documented them in accordance with my direction. The documentation recorded by the scribe accurately reflects the service I personally performed and the decisions made by me. 03/08/2023 Other Mechelle, Navneet Lopez , am serving as a scribe to document services personally performed by Rod Golden PA-C, based upon my observations and the provider's statements to me. All documentation has been reviewed by the aforementioned PANico as well as Victor Hugo Wheat MD, prior to being entered into the official medical record. IVictor Hugo MD attest that the above named individual is acting in scribe capacity, has observed Rod Golden's performance of the services and has documented them in accordance with her direction. The documentation recorded by the scribe accurately reflects the service Rod Golden PA-C, personally performed and the decisions made by her. 03/13/2023 Other I, Vickey Crandall Tae, am serving as a scribe to document services personally performed by Anton Griffin PA-C, based upon my observations and the provider's statements to me. All documentation has been reviewed by the aforementioned MIRELLA as well as Albin Michaud MD, prior to being entered into the official medical record. Albin Min MD attest that the above named individual is acting in scribe capacity, has observed Anton Griffin's performance of the services and has documented them in accordance with her direction. The documentation recorded by the scribe accurately reflects the service Anton Griffin PA-C, personally performed and the decisions made by her. 04/10/2023 Other I, Nette bob, am serving as a scribe to document services personally performed by Anton Griffin PA-C, based upon my observations and the provider's statements to me. All documentation has been reviewed by the aforementioned MIRELLA as well as Albin Michaud MD, prior to being entered into the official medical record. Albin Min MD attest that the above named individual is acting in scribe capacity, has observed Anton Griffin's performance of the services and has documented them in accordance with her direction. The documentation recorded by the scribe accurately reflects the service Anton Griffin PA-C, personally performed and the decisions made by her. 05/08/2023 Other I, Navneet Lopez , am serving as a scribe to document services personally performed by Anton Griffin PA-C, based upon my observations and the provider's statements to me. All documentation has been reviewed by the aforementioned MIRELLA as well as Albin Michaud MD, prior to being entered into the official medical record. Albin Min MD attest that the above named individual is acting in scribe capacity, has observed Anton Griffin's performance of the services and has documented them in accordance with her direction. The documentation recorded by the scribe accurately reflects the service Anton Griffin PA-C, personally performed and the decisions made by her. 06/06/2023 Other Alex Min, am serving as a scribe to document services personally performed by Anton Griffin PA-C, based upon my observations and the provider's statements to me. All documentation has been reviewed by the aforementioned MIRELLA. I, Anton Griffin PA-C, attest that the above named individual is acting in scribe capacity, has observed my performance of the services and has documented them in accordance with my direction. The documentation recorded by the scribe accurately reflects the service I personally performed and the decisions made during the clinic visit. 07/04/2023 Other Vickey Min, am serving as a scribe to document services personally performed by Anton Griffin PA-C based upon my observations and the provider's statements to me. All documentation has been reviewed by the aforementioned doctor prior to being entered into the official medical record. I, Anton Griffin PA-C attest that the above named individual is acting in scribe capacity, has observed my performance of the services and has documented them in accordance with my direction. The documentation recorded by the scribe accurately reflects the service I personally performed and the decisions made by me. PLAN OF TREATMENT Next Appt Details Provider Name:Anton schmidt, 07/04/2023 03:00:00 PM, [id number], [address], [place], [address], Insurance Providers Payer Name Payer Address Payer Phone Subscriber Number Group Number Insured Name Patient Relationship to Insured Coverage Start Date Coverage End Date [facility] Complete/A LEYDA [address] [address] [place] [address] [id number] Mariana Muhammad Self - patient is the insured 4 [facility] [address] [place] [address] [phone] [id number] Mariana Muhammad Self - patient is the insured 4 Medicare Part B [employer] [address] [place] [phone] [id number] Mariana Muhammad Self - patient is the insured 3 [facility] [address] [address] [place], [place] [id number] Mariana Muhammad Self - patient is the insured 3 MEDICAL (GENERAL) HISTORY Medical History History ICD Code Acid reflux Anxiety Arthritis Depression Diabetes Fibromyalgia Migraine headaches Multiple sclerosis, relapsing-remitting Rheumatoid arthritis Thyroid problem Lupus PTSD (post-traumatic stress disorder) Chronic insomnia Convulsions Surgical History Surgery Date(Month/Year) hysterectomy Breast reduction 05/2023 sinus surgery tonsillectomy cholecystectomy Eye surgery Hospitalization History Reason Date(Month/Year) MS relapse 12/2020 ER and TCU 02/2023 MS relapse 02/2021
--- OUTSIDE RECORDS SUMMARY | 2023-07-04 10:21 | XMS_ITS | Clinical Summary ---
Author Organization [facility] Address [place], [place] [address] Care Team Providers Care Cigar Patcher Name Role Phone Laurence Mujica Primary Care Provider [phone] Yumiko Garcia MOLD SPRAYER Unavailable Unavailable Nga White MD Unavailable [phone] [facility] [place] Unavailable [facility] [place] Unavailable Allergies Active Allergy Reactions Criticality Noted Date Comments Acetyldigitoxin *Unknown 11/02/2009 unknown Amoxicillin *Unknown,Hives 05/09/2011 HIVES Venom-Honey Bee Itching,Edema 01/27/2016 Uses epi after stings. Never gets as far as anaphylaxis per pt statement. Bee Venom Protein (Honey Bee) Itching 12/17/2020 Buspirone Other - Describe In Comment Field 03/02/2015 Severe weakness, coordination problems Weakness and coordination problems Ceftriaxone Rash,Itching Medium 09/20/2022 Codeine Itching 10/01/2008 Propoxyphene-Acetaminop hen Behavioral Disturbances 10/03/2006 Divalproex Sodium Shortness Of Breath,Chest Pain 03/26/2008 IV Divalproex *Unknown,Dyspnea 05/09/2011 And chest pains Fentanyl Agitation,Hallucinat ions 01/17/2023 Per patient. She does not want this- she prefers versed/dilaudid for moderate sedation scenarios. Ibuprofen Edema 03/26/2008 Facial edema Latex Rash High 05/24/2007 Lidocaine Hcl Edema 12/17/2020 Lidocaine Edema High 07/23/2007 Morphine Chest Pain,Palpitations 11/20/2012 [place] 04/21/2014 And chest pains Mushroom Anaphylaxis High 01/28/2016 Shiitake Mushroom (Lentinus Edodes) Anaphylaxis High 03/26/2008 Any kind of mushrooms per pt Opioids - Morphine Analogues Itching 10/01/2008 Propoxyphene N-Acetaminophen Other - Describe In Comment Field 12/17/2020 Behavioral disturbances Acetaminophen Itching 09/18/2022 per patient Acetaminophen-Codeine Rash 03/26/2008 Sertraline Anaphylaxis High 03/04/2009 (Zoloft) Medications Medication Sig Dispensed Refills Start Date End Date Status miscellaneous medical supply miscIndications:Tacos rogenic urinary bladder disorder,Multiple sclerosis (HC) As directed. 14 Marshallese straight cath for self cath up to 7 times/daily 200 Each 9 Active miscellaneous medical supply miscIndications:Rhe umatoid arthritis involving multiple sites, unspecified rheumatoid factor presence,Systemic lupus erythematosus, unspecified SLE type, unspecified organ involvement status (HC),Multiple sclerosis (HC) As directed. Mattress pad for pain management 1 Each 0 Active dimethyl fumarate (TECFIDERA) [address] capsule Take 240 mg by mouth 2 times daily. Active lancets (Accu-Chek Softclix Lancets) Use as directed to test blood sugar levels twice a day. 100 Each 1 Active cycloSPORINE (RESTASIS) 0.05 % ophthalmic emulsion Place 1 Drop into both eyes 2 times daily if needed. Active hospital bedIndications:Mult iple sclerosis (HC),Bilateral arm weakness,Leg weakness, bilateral Hospital bed with mattress and full rails. Semi-electric bed. Length of need 99 months. 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 Use with Keegan 2 sensor as per plant control operator's directions 1 Each 2 Active Gauze Bandage 4 X 4 spgeIndications:Tacos rogenic urinary bladder disorder Apply topically to affected area(s). 25 Each 2 2 Active durable medical equipment (DME)Indications:Ne urogenic urinary bladder disorder Merit Drainage [place] 1 Each 1 2 Active miscellaneous medical supply miscIndications:Sup rapubic catheter (HC) As directed. Exam Gloves for suprapubic catheter cares 2 unit 4 3 Active alcohol swabsIndications:Fung prapubic catheter (HC) For home use. 100 Each 4 3 Active Diabetic ShoeIndications:Typ e 2 diabetes mellitus with hypoglycemia without coma, without long-term current use of insulin (HC) As directed. Pair of diabetic shoes 2 Each 3 Active Chair LiftIndications:Mul tiple sclerosis (HC) For home use. Recliner that is a chair lift. 1 Each 3 Active amantadine HCL (SYMMETREL) 100 mg capsule Take 100 mg by mouth two times daily. 3 Active linaCLOtide (LINZESS) 72 mcg cap capsuleIndications: Slow transit constipation Take 72 mcg by mouth once daily if needed (constipation). 3 Active Shower BenchIndications:Mu ltiple sclerosis (HC) For home use. Length of need: 99 1 Each 3 Active Gauze Bandage 4 X 4 spgeIndications:Sup rapubic catheter (HC) Apply topically to affected area(s). Split Drain Sponge 50 Each 3 Active Adhesive Tape (Medipore H) 3 X 10 -yard tapeIndications:Tacos rogenic urinary bladder disorder Apply topically to affected area(s). 1 Each 2 3 Active oxybutynin XL (Ditropan XL) 10 mg CR tabletIndications:O veractive bladder Take 1 Tablet (10 mg) by mouth once daily. 90 Tablet 3 3 Active EPINEPHrine (EpiPen) 0.3 mg/0.3 mL auto-injectorIndica tions:Allergy to bee sting,Food allergy Inject 0.3 mg intramuscular one time if needed for Allergic Reaction. 2 Each 2 3 Active omeprazole (PRILOSEC) 40 mg Delayed-Release capsuleIndications: Hot flashes due to menopause Take 1 Capsule (40 mg) by mouth once daily before a meal. 90 Capsule 3 3 Active Diaper,Brief, Adult,DisposableInd ications:Multiple sclerosis (HC),Neurogenic urinary bladder disorder For home use. 120 Each 11 3 Active famotidine (PEPCID) 40 mg tabletIndications:C hronic GERD TAKE 1 TABLET (40 MG) BY MOUTH ONCE DAILY. 90 Tablet 3 3 Active atorvastatin (LIPITOR) 20 mg tabletIndications:I nsulin dependent type 2 diabetes mellitus (HC),Mixed hyperlipidemia Take 1 Tablet (20 mg) by mouth at bedtime. 90 Tablet 3 3 Active cetirizine (ZYRTEC) 10 mg tabletIndications:S easonal allergic rhinitis due to pollen Take 1 Tablet (10 mg) by mouth once daily. 90 Tablet 3 3 Active levothyroxine (SYNTHROID) 75 mcg tabletIndications:H ypothyroidism, unspecified type Take 1 Tablet (75 mcg) by mouth before breakfast. 90 Tablet 3 3 Active Gauze Bandage 3 X 4 spgeIndications:Sup rapubic catheter (HC) Apply topically to affected area(s). 30 Each 3 Active blood sugar diagnostic (Accu-Chek Guide test strips) stripIndications:In sulin dependent type 2 diabetes mellitus (HC) USE TO TEST BLOOD SUGAR TWO TIMES A DAY 200 Each 3 3 Active Adderall XR 20 mg Extended-Release capsuleIndications: attention-deficit hyperactivity disorder Take 1 Capsule (20 mg) by mouth once daily.Indications : attention deficit disorder with hyperactivity 7 Capsule 4 Active dextroamphetamine-a mphetamine (ADDERALL) 20 mg tabletIndications:a ttention-deficit hyperactivity disorder Indications: attention deficit disorder with hyperactivity 20 mg daily in the afternoon 7 Tablet 4 Active Milk of Magnesia 400 mg/5 mL suspensionIndicatio ns:Constipation, unspecified constipation type Take 30 mL by mouth once daily if needed for Constipation (use first). 4 Active albuterol HFA (PRO-AIR; VENTOLIN; PROVENTIL) 90 mcg/actuation inhalerIndications: COPD mixed type (HC) Inhale 2 Puffs by mouth every 4 hours if needed for Shortness Of Breath or Wheezing. 4 Active ketoconazole 2% topical (NIZORAL) creamIndications:Ca ndidal intertrigo Use once daily as needed for groin rash 60 g 1 4 Active dulaglutide (TRULICITY) 0.75 mg/0.5 mL subcutaneous penIndications:Type 2 diabetes mellitus without complication, without long-term current use of insulin (HC) Inject 0.75 mg subcutaneous once weekly. 6 mL 1 4 Active continuous glucose monitor SENSOR KIT (FreeStyle Keegan 2 Sensor)Indications: diabetes mellitus As directed. Wear each for 14 days 6 Each 12 4 Active valACYclovir (VALTREX) 500 mg tabletIndications:H erpes simplex TAKE 1 TABLET (500 MG) BY MOUTH ONCE DAILY. 90 Tablet 2 4 Active ARIPiprazole (Abilify) 30 mg tablet Take 30 mg by mouth at bedtime. Active ondansetron (ZOFRAN ODT) 4 mg disintegrating tabletIndications:S /P bilateral breast reduction Place 1 Tablet (4 mg) on the tongue every 8 hours if needed for Nausea/Vomiting (May take every 4-6 hours.). 10 Tablet 4 Active hydrOXYzine pamoate (VISTARIL) 25 mg capsuleIndications: S/P bilateral breast reduction Take 1 Capsule (25 mg) by mouth 4 times daily if needed (May take with narcotic for itching, nausea.). 40 Capsule 4 Active eszopiclone (LUNESTA) 1 mg tablet Take 1 mg by mouth at bedtime. Take along with 3 mg for total nightly dose of 4 mg Active DULoxetine (CYMBALTA) 60 mg Delayed-release capsule Take 120 mg by mouth once daily. 4 Active eszopiclone (LUNESTA) 3 mg tablet Take 3 mg by mouth at bedtime. Take along with 1 mg for total nightly dose of 4 mg. Active oxyCODONE (ROXICODONE) 5 mg immediate release tablet Take 20 mg by mouth two times daily. May take additional 20 mg dose as needed for severe pain Active polyethylene glycoL (Miralax) 17 gram/scoop powder Mix 17 g in liquid then take by mouth once daily if needed for Constipation. Active sennosides-docusate (Senokot-S) (8.6-50 mg) tablet Take 1-2 Tablets by mouth once daily if needed for Constipation. Active tiZANidine (ZANAFLEX) 4 mg tabletIndications:M uscle spasm Take 1 Tablet (4 mg) by mouth every 6 hours if needed for Muscle Spasm. 60 Tablet 2 4 Active tiZANidine (ZANAFLEX) 4 mg tablet Take 12 mg by mouth at bedtime. 4 06/28/19 24 Discontinue d(Reorder (E-cancel not sent)) levoFLOXacin (LEVAQUIN) 750 mg tabletIndications:U rinary tract infection associated with indwelling urethral catheter, subsequent encounter,Pseudomon as infection Take 1 Tablet (750 mg) by mouth once daily for 5 days. 5 Tablet 4 06/11/19 24 pregabalin (LYRICA) 50 mg capsuleIndications: Chronic pain syndrome,Neuropathy Take 1 Capsule (50 mg) by mouth two times daily for 14 days. 28 Capsule 4 06/20/19 24 levoFLOXacin (LEVAQUIN) 750 mg tabletIndications:B reast abscess,Cellulitis, unspecified cellulitis site Take 1 Tablet (750 mg) by mouth once daily for 5 days. 5 Tablet 4 06/24/19 24 Active Problems Problem Noted Date Diagnosed Date Severe sepsis 06/02/2023 Acute UTI 06/02/2023 Hyperlipidemia 06/02/2023 GERD (gastroesophageal reflux disease) 4 Wound disruption, post-op, skin, initial encount er 06/02/2023 Macromastia 05/09/2023 Constipation 02/21/2023 Hypokalemia 02/16/2023 Opioid dependence, uncomplicated 02/14/2023 Severe episode of recurrent major depressive disorder, without psychotic features 02/14/2023 Suprapubic catheter 12/14/2022 Type 2 diabetes mellitus wit hout complication, without long-term current use of insulin 04/21/2022 Controlled substance agreement terminated 2021 Medical cannabis use 11/26/2021 Seasonal allergic rhinitis due to pollen 022 Genital herpes 02/25/2021 Overview: Overview: Created by Conversion Replacement Utility updated for latest IMO load COPD mixed type 02/25/2021 Asthma 02/20/2021 Sensory ataxia 12/28/2020 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 Secondary to optic neuritis in the past S/p removal of pseudotumor of the orbit. Chronic pain syndrome 05/27/2007 Overview: Chronic back, abdominal and leg pain. Was on Depakote and Neurontin in the past. Multiple sclerosis 05/24/2007 Overview: Diagnosed in 2000. Presented with vision loss in right eye. Was seen at [facility] by neurology and rheumatology, apparently had characteristic MRI with demyelinating lesions but numerous lumbar punctures have not demonstrated CSF protein abnormalities. Has been seen at [facility] neurology clinic. Currently following with Dr. Shepherd at [facility]. Started on Tysabri (monoclonal baldo) infusions in 2007. Continues to have progressive symptoms. 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 12/06/15--Neurologist is Dr. Ab Whittington- location [facility] ext [phone]. Currently being treated with Aubagio. Laurence Mujica PA-C, Family Medicine.....................12/06/2015 3:22 PM UARS (upper airway resistance syndrome) Resolved Problems Problem Noted Date Diagnosed Date Resolved Date Blood clot in bladder 02/17/20232023 Suprapubic catheter dysfunction 02/17/2023 04/28/2023 Hematemesis 02/16/2023 04/28/2023 Hematuria 02/15/2023 04/28/2023 Morbid exogenous obesity 02/14/20234 Type 2 diabetes mellitus wit h diabetic polyneuropathy, without long-term current use of insulin 02/14/2023 04/28/2023 Cystitis 12/14/2022 04/28/2023 Rheumatoid arthritis, involv ing unspecified site, unspecified whether rheumatoid factor present 12/02/2022 04/28/2023 Bacteremia due to Gram-positive bacteria 09/18/2022 04/28/2023 Hypokalemia 09/18/2022 04/28/2023 Suprapubic catheter dysfunction 04/21/2022 08/29/2022 Paresis of single lower extremity 02/09/2022 04/28/2023 Suprapubic catheter 01/04/2022 04/28/19 24 Paresthesia of foot, bilateral 09/21/2021 04/28/2023 Muscle weakness 02/25/2021 04/06/2021 Overview: Overview: Created by Conversion Myalgia and myositis, unspecified 02/25/2021 04/06/2021 Overview: Overview: Created by Conversion Optic nerve and pathway injury 02/25/2021 02/25/2021 Overview: Overview: Created by Conversion [facility] Annotation: May 09 2011 2:19PM - Minerva Huber: complication of sinus surgery Replacement Utility updated for latest IMO load Uncontrolled type 2 diabetes mellitus with hyperglycemia 02/25/2021 04/06/2021 Anxiety and depression 02/20/202104/27 Insulin dependent type 2 diabetes mellitus 02/20/2021 12/02/2022 Controlled substance agreement signed 07/06/2020 12/19/2021 Controlled substance agreement broken 02/12/2020 07/06/2020 Perimenopausal 02/08/2020 04/28/2023 Hypersomnolence 02/08/2020 02/20/2021 Hypersomnolence disorder, wi th medical condition, persistent, moderate 11/05/2019 04/28/19 24 Subclinical hypothyroidism 02/24/2019 0 11/05/2019 Pilar and trichilemmal cysts 02/04/2018 04/28/2023 Chronic insomnia 07/18/2017 02/20/2021 Hypoxemia 05/11/2016 07/19/2017 Excessive daytime sleepiness 03/30/2016 11/05/2019 NICHOLAS (generalized anxiety disorder) 03/28/2016 02/20/2021 Herpes simplex infection of genitourinary system 03/27/2016 07/25/2021 MDD (major depressive disord er), recurrent severe, without psychosis 03/24/2016 02/20/2021 Convulsions 01/27/2016 04/06/2021 Hyperglycemia 12/13/2015 07/19/2017 Overview: Steroid induced, normal A1C. Continue to monitor. 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 Multiple sclerosis exacerbation 12/06/2015 05/30/2016 Generalized weakness 12/06/2015 020 Diarrhea in adult patient 12/06/2015 Polyuria 12/06/2015 07/19/2017 Neurologic ambulation disorder 12/06/2015 04/28/2023 Medication reaction 12/06/2015 05/31/19 17 Status migrainosus 06/22/2015 2 Acute pyelonephritis 06/21/2015 017 Abnormal peripheral vision 09/18/2014 0 04/28/2023 Muscle spasticity 08/22/2014 04/06/2021 Controlled substance agreeme nt signed and scanned 07/16/14 07/16/2014 02/12/2020 Overview: Insomnia 05/25/2014 11/05/2019 Trigeminal nerve disorder 04/28/2014 Pain medication agreement 02/14/2013 Overview: Vicodin 3 per day. Chronic pain. Roddy Trevino MD .................... 05/01/2013 9:39 AM Chronic pain 11/05/2009 11/05/2009 Lupus (systemic lupus erythematosus) 11/04/2009 04/28/2023 Rheumatoid arthritis(714.0) 11/04/2009 11/05/2019 Rule out Schizoaffective dis order, chronic condition with acute exacerbation 11/03/20092022 ADHD (attention deficit hype ractivity disorder), combined type 11/03/2009 11/05/2009 Severe major depression with out psychotic features 11/02/2009 11/03/2009 Unspecified Personality Diso rder; rule out mixed ( borderline, dependent, negativistic, explosive traits); rule out organic 08/24/200804/06 Rule out Alcohol Abuse 08/24/200802/25 Ganglion, unspecified 09/04/20072017 Eating disorder, unspecified 06/26/2007 05/30/2016 Abdominal pain, generalized 06/24/2007 05/30/2016 Major depressive disorder, r ecurrent episode, severe, without mention of psychotic behavior 06/24/2007 05/30/2016 LOSS OF CONSCIOUSNESS 05/24/20072017 Overview: 05/2007: Unclear etiology - ? Seizure, started on phenytoin by [facility]. Then switched to Lyrica. Other convulsions 05/24/2007 07/19/2017 Overview: Unclear history of seizure-like incident in the setting of allergic reaction to latex. No witnessed tonic-clonic seizures. EEG monitoring normal (pt was on Dilantin) CHRONIC MIGRAINE 05/24/2007 09/08/2014 Other malaise and fatigue 02/11/2007 Abdominal pain, left lower quadrant 02/11/2007 09/08/2014 Unspecified constipation 02/11/200703/2021 Sebaceous cyst 02/11/2007 07/19/2017 Tobacco use disorder 02/11/2007 024 Anemia, unspecified 12/15/2006 09/09/19 15 Calculus of gallbladder with out mention of cholecystitis or obstruction 11/14/2006 12/15/2006 Injury, other and unspecifie d, elbow, forearm, and wrist 10/03/2006 09/08/2014 Pars planitis 01/07/2004 04/28/2023 Abdominal wall hernia 12/02/20032023 Tobacco dependence syndrome 05/26/2003 02/25/2021 Encounters Date Type Department Care Team Description 07/04/2023 8:00 AM CDT Home Care Visit [facility] [address] [place] [address] Orlando Escobar, RN SN - OASIS RECERTIFICATION 07/03/2023 12:00 PM CDT Home Care Visit [facility] [address] [place] [phone] Luisa Burnett, PT PT - HOME VISIT 07/02/2023 8:30 AM CDT Home Care Visit [facility] [address] [place] [phone] Radha Bob, RN SN - WOUND HOME VISIT 07/01/2023 8:30 AM CDT Home Care Visit [facility] [address] [place] [phone] Radha Bob RN SN - WOUND HOME VISIT 06/30/2023 12:00 PM CDT Home Care Visit [facility] [address] [place] [phone] Radha Bob RN SN - WOUND HOME VISIT 06/29/2023 9:00 AM CDT Home Care Visit [facility] [address] [place] [phone] Orlando Escobar, RN SN - WOUND HOME VISIT 06/28/2023 10:15 AM CDT Home Care Visit [facility] [address] [place] [phone] Luisa Burnett, PT PT - WOUND HOME VISIT 06/28/[address] [address] Luisa Burnett, PT Home Care 06/27/2023 12:30 PM CDT Home Care Visit [facility] [address] [place] [phone] Orlando Escobar, RN SN - WOUND HOME VISIT 06/26/2023 10:15 AM CDT Home Care Visit [facility] [address] [place] [address] Luisa Burnett, PT PT - WOUND HOME VISIT 06/25/2023 10:30 AM CDT Home Care Visit [facility] [address] [place] [address] Orlando Escobar, RN SN - WOUND HOME VISIT 06/24/2023 11:00 AM CDT Home Care Visit [facility] [address] [place] [address] Radha Bob RN SN - HOME VISIT 06/23/2023 10:30 AM CDT Home Care Visit [facility] [address] [place] [phone] Radha Bob, CALLUM SN - HOME VISIT 06/22/2023 10:30 AM CDT Home Care Visit [facility] [address] [place] [address] Orlando Escobar RN SN - WOUND HOME VISIT 06/21/2023 11:30 AM CDT Office Visit [facility] [address] [facility] [address] [place] [address] Tata Cruz PA Surgical Followup (Check open wound on her left breast S/P Bilateral Breast Reduction with free nipple graft on 05/09/23 with Yazmin) 06/21/2023 10:30 AM CDT Home Care Visit [facility] [address] [place] [phone] Luisa Burnett, PT PT - MISSED VISIT 06/21/2023 Travel 06/21/2023 Telephone [facility] [address] [facility] [address] [place] [address] Yazmin, Alfredo Mo MD Post-op Pain/problem (Wound on left breast) 06/20/2023 12:00 PM CDT Home Care Visit [facility] [address] [place] [phone] Orlando Escobar, RN SN - WOUND HOME VISIT 06/20/2023 4:00 AM CDT Home Care Visit [facility] [address] [place] [phone] Laurence Clemons RN SN - WOUND/OSTOMY CHART CONSULT 06/20/2023 Travel 06/20/2023 Telephone [facility] [address] [place] [address] Laurence Clemons sieve repairer (Wound care plan - requesting wound vac) 06/19/2023 1:30 PM CDT Home Care Visit [facility] [address] [place] [phone] Luisa Burnett, PT PT - MISSED VISIT 06/19/2023 10:48 AM CDT - 06/19/2023 2:12 PM CDT Emergency [facility] [address] [place] [address] Alison Elmore NP Breast abscess (Primary Dx); Cellulitis, unspecified cellulitis site; Wound dehiscence Discharge Disposition: Home Self Care 06/19/2023 Telephone [facility] [address] [phone] Alfredo Arce MD Appointment Reminder; Appointment Request 06/19/2023 Travel 06/19/2023 Nurse Triage [facility] [address] [place] [address] Laurence Mujica PA Home Care (Pain ) 06/19/2023 Nurse Triage [facility] [address] [place] [address] Laurence Mujica PA Pain In Breast 06/18/2023 5:00 PM CDT Home Care Visit [facility] [address] [place] [phone] Radha Bob, RN SN - WOUND HOME VISIT 06/18/2023 Home Care Visit [facility] [address] [facility] [place] [address] Radha Bob, RN CARE COORDINATION 06/17/2023 8:00 AM CDT Home Care Visit [facility] [address] [facility] [place] [address] Radha Bob, RN SN - WOUND HOME VISIT 06/16/2023 3:30 PM CDT Home Care Visit [facility] [address] [facility] [place] [phone] Radha Bob, RN SN - WOUND HOME VISIT 06/15/2023 1:15 PM CDT Home Care Visit [facility] [address] [place] [address], [place] [phone] Socorro Barajas LPN LPN - HOME VISIT 06/14/2023 12:30 PM CDT Home Care Visit [facility] [address] [place] [address], [place] [phone] Orlando Escobar RN SN - HOME VISIT 06/14/2023 10:30 AM CDT Home Care Visit [facility] [address] [place] [address], [place] [phone] Luisa Burnett, PT PT - HOME VISIT 06/13/2023 12:30 PM CDT Home Care Visit [facility] [address] [place] [address], [place] [phone] Socorro Barajas LPN [facility] [employer] - MISSED VISIT 06/13/2023 Home Care Visit [facility] [address] [place] [address], [place] [phone] Orlando Escobar, RN CARE COORDINATION 06/12/2023 9:00 AM CDT Home Care Visit [facility] [address] [place] [address], [place] [phone] Luisa Burnett, PT PT - HOME VISIT 06/12/2023 Home Care Visit [facility] [address] [place] [address], [place] [phone] Orlando Escobar, RN SN - MISSED VISIT 06/12/2023 Telephone [facility] [address] [place] [address] Laurence Mujica PA Form (Jury Duty) 06/11/2023 4:00 PM CDT Home Care Visit [facility] [address] [place] [phone] Radha Bob RN SN - WOUND HOME VISIT 06/11/2023 Telephone [facility] [address] [place] [address] Laurence Mujica PA Letter 06/10/2023 9:00 AM CDT Home Care Visit [facility] [id number] [place] [phone] Orlando Escobar, RN SN - WOUND HOME VISIT 06/09/2023 9:00 AM CDT Home Care Visit [facility] [id number] [place] [phone] Orlando Escobar, RN SN - WOUND HOME VISIT 06/08/2023 1:30 PM CDT Home Care Visit [facility] [id number] [place] [phone] Laurence Clemons RN SN - WOUND/OSTOMY CHART CONSULT 06/08/2023 12:00 PM CDT Home Care Visit [facility] [id number] [place] [phone] Orlando Escobar, RN SN - INITIAL ASSESSMENT 06/07/2023 4:00 PM CDT Home Care Visit [address] [phone] Luisa Burnett, PT PT - OASIS RESUMPTION OF CARE 06/07/[address] [address] Luisa Burnett, PT Home Care 06/07/[address] [address] Luisa Burnett, PT Home Care 06/06/2023 Patient Outreach [facility] [address] [place] [address] Felicita Dickinson, RN Primary RN Care Management; Hospital F/U (LACE 80) 06/05/2023 Travel 06/04/2023 Travel 06/04/2023 Telephone [facility] [address] [address] [phone] Alfredo Arce MD Surgical Followup (Wound under left breast/S/p: Bilateral Breast Reduction/DOS: 05/09/2023/Surgeon: Alfredo Arce//) 06/03/2023 Home Care Visit [facility] [address] [place] [address] Luisa Burnett, PT PT - OASIS TRANSFER 06/01/2023 8:28 PM CDT - 06/05/2023 12:30 PM CDT Hospital Encounter [facility] [address] [place] [address] [address] [place], [place] Boyer, DO Laurence William Thao Nguyen Le, Kathy Bautista, Bi Sidhu DO Sepsis, due to unspecified organism, unspecified whether acute organ dysfunction present (HC) (Primary Dx); Hypotension, unspecified hypotension type; Wound dehiscence, surgical, initial encounter; Elevated lactic acid level; Wound disruption, post-op, skin, initial encounter; Food insecurity; Transportation insecurity; Chronic pain syndrome; Neuropathy; Urinary tract infection associated with indwelling urethral catheter, subsequent encounter; Pseudomonas aeruginosa infection; Pseudomonas infection Discharge Disposition: Home Health 06/01/2023 Travel 05/30/2023 12:00 PM CDT Home Care Visit [facility] [address] [place] [address] Luisa Burnett, PT PT - HOME VISIT 05/30/2023 Refill [facility] [address] [place] [address] Laurence Mujica PA Refill Request (Ondansetron) 05/28/2023 12:30 PM CDT Home Care Visit [facility] [address] [place] [address] Josi Tolentino, RN SN - HOME VISIT 05/28/2023 8:56 AM CDT - 05/28/2023 11:05 AM CDT Emergency [facility] [address] [place] [address] Darryl Hardy MD Postoperative hematoma of skin following non-dermatologic procedure (Primary Dx) Discharge Disposition: Home Self Care 05/28/2023 Travel 05/25/2023 Nurse Triage [facility] [address] [facility] [address] [place] [address] Alfredo Arce MD Post-op 05/23/2023 12:00 PM CDT Home Care Visit [facility] [address] [place] [phone] Luisa Burnett, PT PT - HOME VISIT 05/22/2023 1:00 PM CDT Home Care Visit [facility] [address] [place] [phone] Josi Tolentino RN SN - HOME VISIT 05/21/2023 1:00 PM CDT Office Visit [facility] [address] [facility] [address] [place] [address] Alfredo Arce MD Surgical Followup (Bilateral Breast Reduction with free nipple graft, DOS: 05/09/23, w/ Dr. Arce) 05/21/2023 3:00 AM CDT Home Care Visit [facility] [address] [place] [phone] Luisa Burnett, PT PT - MISSED VISIT 05/21/2023 Travel 05/17/2023 11:00 AM CDT Home Care Visit [facility] [address] [place] [phone] Socorro Barajas LPN [facility] - HOME VISIT 05/17/2023 3:00 AM CDT Home Care Visit [facility] [address] [place] [address] Luisa Burnett, PT PT - MISSED VISIT 05/17/2023 Travel 05/17/2023 Telephone [facility] [address] [address] Alfredo Arce MD [facility] F/U (Sutures/itchiness. ) 05/16/2023 1:15 PM CDT Home Care Visit [facility] [address] [place] [address] Luisa Burnett, PT PT - MISSED VISIT 05/14/2023 10:30 AM CDT Home Care Visit [facility] [address] [place] [address] Josi Tolentino, RN SN - INITIAL ASSESSMENT 05/14/2023 Home Care Visit [facility] [address] [place] [address] Josi Tolentino, RN CARE COORDINATION 05/14/[address] [address] Laurence Mujica PA Home Care (home care orders needed) 05/10/2023 1:00 PM CDT Nurse/Clinic Staff Only [facility] [address] [phone] Surgical Followup (Post-operative call/DOS: 05/09/2023/Surgeon: Alfredo Arce) 05/10/2023 Travel 05/09/2023 9:50 AM CDT - 05/09/2023 11:40 AM CDT Surgery [facility] [address] [facility] [place] [address] Alfredo Arce MD Bilateral Breast Reduction with free nipple graft 05/09/2023 9:50 AM CDT Anesthesia Event [facility] [address] [facility] [place] [address] Alfredo Villa MD [facility], Henok Hameed MD 05/09/2023 8:21 AM CDT - 05/09/2023 1:12 PM CDT Hospital Encounter [facility] [address] [facility] [place] [address] Alfredo Arce MD S/P bilateral breast reduction (Primary Dx) Discharge Disposition: Home Self Care 05/09/2023 Travel 05/08/2023 Home Care Visit [facility] [address] [facility] [place] [address] Roddy Pollack, PT CARE COORDINATION 05/08/2023 Home Care Visit [facility] [address] [place] [address] Roddy Pollack, PT CARE COORDINATION 05/08/2023 Orders Only [facility] [address] [place] [address] Laurence Mujica PA <No scans attached> 05/07/2023 11:15 AM CDT Home Care Visit [facility] [address] [place] [address] Roddy Pollack, PT PT - OASIS START OF CARE 05/07/2023 Telephone [facility] [address] [place] [address] Roddy Pollack, PT Home Care (/) 05/07/2023 Orders Only [facility] [address] [place] [address] Laurence Mujica PA <No scans attached> 05/07/2023 Plan of Care Documentation [facility] [address] [place] [address] 05/04/2023 Telephone [facility] [address] [place] [address] Roddy Pollack, PT Home Care 05/03/2023 Travel 05/01/2023 Travel 04/30/2023 Home Care Visit [facility] [address] [facility] [place] [address] Maria Victoria Mcintosh, PT CARE COORDINATION 04/30/2023 Home Care Visit [facility] [address] [facility] [place] [address] Luisa Burnett, PT CARE COORDINATION 04/27/2023 10:30 AM CDT Preop Visit [facility] [address] [place] [address] Laurence Mujica PA Preoperative Exam ([place]-Dr. Arce-breast reduction-05/09/23) 04/27/2023 Travel 04/27/2023 Transcribe Orders [facility] [address] [facility] [place] [address] Juan Jose Martin [facility] 04/25/2023 Travel 04/21/2023 Refill [facility] [address] [place] [address] Laurence Mujica PA Refill Request (Valacyclovir) 04/20/2023 Telephone [facility] [address] [place] [address] Alfredo Arce MD Appointment (Pre-op) 04/17/2023 2:45 PM CDT Office Visit [facility] [address] [facility] [address] [place] [address] Michoacano Nathan MD Consult (MS) 04/17/2023 Travel 04/09/2023 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 Office Visit [facility] [address] [facility] [address] [place] [address] Alfredo Arce MD Consult (Breast reduction) 04/09/2023 Travel from Last 3 Months Immunizations Name Administration Dates Next Due COVID-19 vaccine (Vouchr-Bio NTPoikos 30mcg/0.3mL) 12YO+ BIVALENT PF, MDV 11/24/2021 COVID-19 vaccine (Pfizer-Bio NTech 30mcg/0.3mL) PF, MDV 12/15/2020,09/27/2020 Influenza, IIV3 (Age >=3 years) 11/09/2009,11/09,03/05/2001 Influenza, IIV4 11/24/2021,,02/10/2020,02/07/19 20,01/11/2017,10/25/2015,10/24/2013 Td (Age >=7 Years) 06/11/1991 Tdap 05/31/2011 Family History Medical History Relation Name Comments Good Health Daughter 1 Good Health Daughter 2 Diabetes Father Heart Disease Father 2 heart attack s. Stroke Father No Known Problems Half-Sister 1 Same dad. Different mom. No Known Problems Half-Sister 2 Tin dad. Different mom. Unknown Mother Other Other Hx of cerebral aneurysms in aunt and in the cousin, cancer in several family members Seizures Sister Multiple sclerosis Son Relation Name Status Comments Daughter 1 Alive Daughter 2 Alive Father Alive Half-Sister 1 Alive Half-Sister 2 Alive Mother Alive Other Sister Alive Son Alive Social History Tobacco Use Types Packs/Day Years Used Date Smoking Tobacco: Former Cigarettes 2 40.4 S tarted: 1983 Smokeless Tobacco: Former Quit: 09/19/2014 Tobacco Cessation:Counseling Given: Not Answered Comments:5-6 cigs per day 10/26/20/has patch Alcohol Use Standard Drinks/Week Comments Never 0 (1 standard drink = 0.6 oz pur e alcohol) PHQ-2 Answer Date Recorded PHQ-2 TOTAL SCORE 3 11/30/2022 Social Connections Answer Date Recorded Frequency of Communication with Friends and Fami ly 0 06/02/2023 Financial Resource Strain Answer Date R ecorded Difficulty of Paying Living Expenses 3 02/16/2023 Difficulty of Paying Living Expenses Not on file 02/16/2023 Food Insecurity Answer Date Recorded Worried About Running Out of Food in the Last Ye ar 2 06/02/2023 Transportation Needs Answer Date Record ed Lack of Transportation (Medical) 2 06/02/2023 Housing Stability Answer Date Recorded Unable to Pay for Housing in the Last Year 1 06/05/2022 Sex and Gender Information Value Date Recorded Sex Assigned at Not on file Gender Identity Not on file Sexual Orientation Not on file Obstetrics History Para Term AB IAB SAB Ectopic Multiple Livin g Live Births 3 3 3 Date Outcome GA Total Labor Labor/2nd/3rd Weight Sex Delivery Anes PTL Almaz A1 A5 Name Cl in Para Para Para Last Filed Vital Signs Vital Sign Reading Time Taken Comments Blood Pressure 120/64 07/04/2023 8:33 AM CDT Pulse 74 07/04/2023 8:33 AM CDT Temperature 36.6 ??C (97.8 ??F) 07/04/2023 8:33 AM CD T Respiratory Rate 18 07/04/2023 8:33 AM CDT Oxygen Saturation 94% 07/04/2023 8:33 AM CDT Inhaled Oxygen Concentration - - Weight 84.4 kg (186 lb) 06/21/2023 11:41 AM CDT Height 174 cm (5' 8.5) 06/19/2023 10:56 AM CDT Body Mass Index 27.87 06/19/2023 10:56 AM CDT Plan of Treatment Upcoming Encounters Date Type Department Care Team (Late st Contact Info) Description 07/04/2023 Plan of Care Documentation [address] [phone] 07/05/2023 2:30 PM CDT Home Care Visit [place] [phone] [place] [phone] Luisa Burnett, PT [address] [place] [address] 07/06/2023 10:30 AM CDT Home Care Visit [address] [address] Orlando Escobar, RN [address] [place] [address] 07/09/2023 12:50 PM CDT Office Visit [facility] [address] [place] [address] Laurence Mujica PA [address] [place] [address] 07/26/2023 12:30 PM CDT Procedure Only [facility] [address] [place] [address] Michoacano Nathan MD [address] [place] [address] Health Maintenance Due Date Last Done Comments Pneumococcal series for age 6-64 (1 of 2 - PCV) 1981 Hepatitis B series for Diabe mahad (1 of 3 - 19+ 3-dose series) 1994 Colonoscopy through age 75 01/25/2020 Tetanus booster 05/30/2021 05/31/2011, 06/11/1991 COVID-19 vaccine series (2022- season) 2022 11/24/2021, 12/15/2020, 09/27/2020 Mammogram for age 45-75 06/08/2023 06/07/2022 Influenza for age 9-49 10/07/2023 , 12/18/2020, 02/10/2020, Additional history exists Depression screening for age 12+ 12/05/2023 12/04/2022, 11/30/2022, 12/19/2021, Additional history exists BMI (ht and wt on same day) for age 18+ 05/20/2024 05/21/2023, 04/27/2023, 04/09/2023, Additional history exists Lipids for age 45-75 12/01/2027 11/30/2022, 12/01/2021, 02/07/2019, Additional history exists Tdap Completed 05/31/2011 HIV for age 15-65 Completed 09/20/2021, , 07/23/2007 Hepatitis C screening for ag e 18-79 Completed 09/20/2021, 09/20/2021, 03/12/2020, Additional history exists Procedures Procedure Name Priority Date/Time Associated Diagnosis Comments CT CHEST ABDOMEN PELVIS W STAT 06/19/2023 12:23 PM CDT BLOOD CULTURE STAT 06/19/2023 11:49 AM CDT CBC WITH AUTO DIFFERENTIAL STAT 06/19/2023 11:39 AM CDT PROCALCITONIN STAT 06/19/2023 11:39 AM CDT PROTIME-INR STAT 06/19/2023 11:39 AM CDT COMP METABOLIC PANEL STAT 06/19/2023 11:39 AM CDT BLOOD CULTURE STAT 06/19/2023 11:39 AM CDT CBC WITH AUTO DIFFERENTIAL STAT 06/19/2023 11:39 AM CDT LACTATE VENOUS STAT 06/19/2023 11:39 AM CDT MAGNESIUM Today 06/05/2023 9:27 AM CDT POTASSIUM Today 06/05/2023 9:27 AM CDT HEMOGLOBIN Today 06/05/2023 9:27 AM CDT CREATININE Today 06/05/2023 9:27 AM CDT GLUCOSE METER Routine 06/05/2023 9:13 AM CDT GLUCOSE METER Routine 06/05/2023 6:46 AM CDT GLUCOSE METER Routine 06/05/2023 12:25 AM CDT GLUCOSE METER Routine 06/04/2023 10:55 PM CDT GLUCOSE METER Routine 06/04/2023 7:47 PM CDT GLUCOSE METER Routine 06/04/2023 6:33 PM CDT GLUCOSE METER Routine 06/04/2023 5:07 PM CDT GLUCOSE METER Routine 06/04/2023 3:01 PM CDT GLUCOSE METER Routine 06/04/2023 1:01 PM CDT GLUCOSE METER Routine 06/04/2023 12:22 PM CDT EKG 12 LEAD Routine 06/04/2023 11:46 AM CDT GLUCOSE METER Routine 06/04/2023 9:26 AM CDT WHITE BLOOD COUNT Early AM 06/04/2023 5:5 0 AM CDT HEMOGLOBIN Early AM 06/04/2023 5:50 AM CDT SODIUM Early AM 06/04/2023 5:50 AM CDT CREATININE Early AM 06/04/2023 5:50 AM CDT MAGNESIUM Early AM 06/04/2023 5:50 AM CDT POTASSIUM Early AM 06/04/2023 5:50 AM CDT GLUCOSE METER Routine 06/03/2023 9:25 PM CDT GLUCOSE METER Routine 06/03/2023 7:26 PM CDT GLUCOSE METER Routine 06/03/2023 4:56 PM CDT GLUCOSE METER Routine 06/03/2023 11:45 AM CDT GLUCOSE METER Routine 06/03/2023 7:52 AM CDT SODIUM MALOU 06/03/2023 6:49 AM CDT CREATININE MALOU 06/03/2023 6:49 AM CDT POTASSIUM Early AM 06/03/2023 6:49 AM CDT C-REACTIVE PROTEIN Early AM 06/03/2023 6: 49 AM CDT HEMOGLOBIN Early AM 06/03/2023 6:49 AM CDT GLUCOSE METER Routine 06/03/2023 5:31 AM CDT GLUCOSE METER Routine 06/02/2023 9:28 PM CDT GLUCOSE METER Routine 06/02/2023 5:39 PM CDT GLUCOSE METER Routine 06/02/2023 11:32 AM CDT SCAN-CARDIAC STRIP 06/02/2023 10:13 AM CDT GLUCOSE METER Routine 06/02/2023 9:36 AM CDT CREATININE,ISTAT Timed 06/02/2023 6:34 AM CDT WHITE BLOOD COUNT Early AM 06/02/2023 6:2 3 AM CDT LACTATE VENOUS Timed 06/02/2023 6:23 AM CDT SCAN-CARDIAC STRIP 06/02/2023 3: 50 AM CDT HEMOGLOBIN STAT 06/02/2023 1:07 AM CDT LACTATE VENOUS STAT 06/02/2023 12:07 AM CDT URINE CULTURE MALOU 06/01/2023 10:08 PM CDT URINALYSIS MICROSCOPIC STAT 06/01/2023 10:08 PM CDT UA W/ SEDIMENT EXAM REFLEXED PER CRITERIA STAT 06/01/2023 10:08 PM CDT CBC WITH AUTO DIFFERENTIAL STAT 06/01/2023 9:39 PM CDT PROTIME-INR STAT 06/01/2023 9:39 PM CDT COMP METABOLIC PANEL STAT 06/01/2023 9:39 PM CDT BLOOD CULTURE STAT 06/01/2023 9:39 PM CDT CBC WITH AUTO DIFFERENTIAL STAT 06/01/2023 9:39 PM CDT LACTATE VENOUS STAT 06/01/2023 9:39 PM CDT BLOOD CULTURE STAT 06/01/2023 9:25 PM CDT XR CHEST 1 VIEW PORTABLE STAT 06/01/2023 9:20 PM CDT AEROBIC BACTERIAL CULTURE, STAIN STAT 06/01/2023 8:47 PM CDT ED FAST ULTRASOUND Routine 05/28/2023 10:05 AM CDT MUSCULOSKELETAL ULTRASOUND Routine 05/28/2023 10:00 AM CDT TYPE & SCREEN STAT 05/28/2023 9:28 AM CDT RED CELL MORPHOLOGY STAT 05/28/2023 9 :28 AM CDT PLATELET ESTIMATE STAT 05/28/2023 9:2 8 AM CDT MANUAL DIFFERENTIAL STAT 05/28/2023 9 :28 AM CDT CBC WITH AUTO DIFFERENTIAL STAT 05/28/2023 9:28 AM CDT HEPATIC FUNCTION PANEL STAT 05/28/2023 9:28 AM CDT PROTIME-INR STAT 05/28/2023 9:28 AM CDT CBC WITH AUTO DIFFERENTIAL STAT 05/28/2023 9:28 AM CDT BASIC METABOLIC PANEL STAT 05/28/2023 9:28 AM CDT GLUCOSE METER Timed 05/09/2023 11:51 AM CDT PATH TISSUE EXAM Today 05/09/2023 10:20 AM CDT SUPRAGLOTTIC-LMA Routine 05/09/2023 10:08 AM CDT MAMMOPLASTY REDUCTION BILATERAL Tier 4 05/09/2023 9:40 AM CDT Macromastia Case Notes LATEX ALLERGYSupine GLUCOSE METER Timed 05/09/2023 8:45 AM CDT SCAN-CARDIAC STRIP 05/09/2023 12:00 AM CDT BASIC METABOLIC PANEL Routine 04/27/2023 11:19 AM CDT Pre-op exam HEMOGLOBIN Routine 04/27/2023 11:19 AM CDT Pre-op exam EXTENDED HOLTER Routine 04/23/2023 Tachycardia LIPID PANEL W REFLEX MEASURED LDL Routine 11/30/2022 4:09 PM CDT Type 2 diabetes mellitus without complication, without long-term current use of insulin (HC) XR MAMMO KAYLEE BILAT SCREEN Routine 06/07/2022 9:19 AM CDT Visit for screening mammogram ANTI HIV 1/2 MALOU 09/20/2021 11:11 PM CDT ANTI HCV MALOU 09/20/2021 11:11 PM CDT from Last 3 Months or Most Recently Relevant to Health Maintenance Results * CT CHEST ABDOMEN PELVIS W (06/19/2023 12:23 PM CDT) Anatomical Region Laterality Modality Abdomen, Pelvis, AORTA, LIVER, SPLEEN, CHEST Computed Tomography 06/19/2023 12:4 5 PM CDT Impressions 06/19/2023 12:45 PM CDT 1. Urinary bladder is decompressed with a suprapubic umbilical catheter. No obstruction. No hydroureteronephrosis. No discrete nephrolithiasis. 2. Scattered 1-3 millimeter subpleural indeterminate pulmonary nodules, likely intrapulmonary lymphoid tissue. Consider optional [address] to document stability and assess underlying malignant potential. 3. Linear lucency extending into the breast tissue from the skin surface with areas of intrinsic air and associated stranding. Corresponding to reported given clinical history of breast abscess. No focal drainable fluid collection. Please note that all CT scans at this facility use dose modulation, iterative reconstruction, and/or weight-based dosing when appropriate to reduce radiation dose to as low as reasonably achievable. Dictated by Roddy Ortiz MD @ 06/19/2023 12:45:40 PM (Electronically Signed) Narrative 06/19/2023 12:45 PM CDT For Patients: ??As a result of the Cures Act, medical imaging exams and procedure reports are released immediately into your electronic medical record. ??You may view this report before your referring provider. ??If you have questions, please contact your health care provider. INDICATION: Lower abdominal pain, recent UTI, left breast abscess TECHNIQUE: CT chest, abdomen and pelvis acquired 100 milliliters omni 300 contrast. COMPARISON: February [address] imaging dating back to August 2009 FINDINGS: CHEST: Lungs and Airways: Upper lobe predominant paraseptal emphysema. Scattered 1-3 millimeter subpleural indeterminate pulmonary nodules, likely intrapulmonary lymphoid tissue. Right lower lobe linear airspace opacity likely linear atelectasis. No mass or consolidation. No endoluminal lesion. Heart and Mediastinum: The visualized portions of the thyroid are normal. No axillary or supraclavicular lymphadenopathy. No mediastinal, hilar or retrocrural lymphadenopathy. Normal heart size. Normal caliber aorta. Trace atherosclerotic calcifications. Pleura: The pleural spaces are normal. ABDOMEN: Liver: Normal enhancement. No focal suspicious hepatic lesions. Gallbladder and biliary: Cholecystectomy. Prominence of the bile ducts which can be seen in a normal post cholecystectomy setting. Spleen: Normal size and enhancement. Pancreas: Normal enhancement without peripancreatic inflammatory changes or ductal dilatation. Adrenal glands: Normal adrenal glands. Kidneys and ureters: Normal enhancement. No radio-opaque calculi. No hydroureteronephrosis. GI tract: The stomach is relatively decompressed. Normal caliber small and large bowel loops. Normal appendix. Vascular structures: Normal caliber aorta with atherosclerotic calcifications. Lymph nodes: No lymphadenopathy in the abdomen or pelvis by size criteria. Peritoneum: No free air, free fluid, or focal drainable fluid collection. PELVIS: Genitourinary system: Urinary bladder is decompressed with a suprapubic catheter. Hysterectomy. Age-appropriate left ovary. Right ovary is not definitively visualized. SKELETAL STRUCTURES AND SOFT TISSUES: Tiny fat containing umbilical hernia. Linear lucency extending into the breast tissue from the skin surface with areas of intrinsic air and associated stranding. Corresponding to reported given clinical history of breast abscess. No focal drainable fluid collection. Procedure Note Roddy Ortiz MD - 06/19/2023 For Patients: As a result of the Cures Act, medical imagingexams and procedure reports are released immediately into your electronicmedical record. You may view this report before your referring provider.If you have questions, please contact your health care provider. INDICATION: Lower abdominal pain, recent UTI, left breast abscess TECHNIQUE: CT chest, abdomen and pelvis acquired 100 milliliters omni 300 contrast. COMPARISON: February [address] imaging dating back to August 2009 FINDINGS: CHEST: Lungs and Airways: Upper lobe predominant paraseptal emphysema. Scattered1-3 millimeter subpleural indeterminate pulmonary nodules, likelyintrapulmonary lymphoid tissue. Right lower lobe linear airspace opacitylikely linear atelectasis. No mass or consolidation. No endoluminallesion. Heart and Mediastinum: The visualized portions of the thyroid are normal.No axillary or supraclavicular lymphadenopathy. No mediastinal, hilar orretrocrural lymphadenopathy. Normal heart size. Normal caliber aorta.Trace atherosclerotic calcifications. Pleura: The pleural spaces are normal. ABDOMEN: Liver: Normal enhancement. No focal suspicious hepatic lesions. Gallbladder and biliary: Cholecystectomy. Prominence of the bile ductswhich can be seen in a normal post cholecystectomy setting. Spleen: Normal size and enhancement. Pancreas: Normal enhancement without peripancreatic inflammatory changesor ductal dilatation. Adrenal glands: Normal adrenal glands. Kidneys and ureters: Normal enhancement. No radio-opaque calculi. Nohydroureteronephrosis. GI tract: The stomach is relatively decompressed. Normal caliber small andlarge bowel loops. Normal appendix. Vascular structures: Normal caliber aorta with atheroscleroticcalcifications. Lymph nodes: No lymphadenopathy in the abdomen or pelvis by sizecriteria. Peritoneum: No free air, free fluid, or focal drainable fluidcollection. PELVIS: Genitourinary system: Urinary bladder is decompressed with a suprapubiccatheter. Hysterectomy. Age-appropriate left ovary. Right ovary is notdefinitively visualized. SKELETAL STRUCTURES AND SOFT TISSUES: Tiny fat containing umbilicalhernia. Linear lucency extending into the breast tissue from the skinsurface with areas of intrinsic air and associated stranding.Corresponding to reported given clinical history of breast abscess. Nofocal drainable fluid collection. IMPRESSION: 1. Urinary bladder is decompressed with a suprapubic umbilical catheter.No obstruction. No hydroureteronephrosis. No discrete nephrolithiasis. 2. Scattered 1-3 millimeter subpleural indeterminate pulmonary nodules,likely intrapulmonary lymphoid tissue. Consider optional [address] to document stability and assess underlying malignant potential. 3. Linear lucency extending into the breast tissue from the skin surfacewith areas of intrinsic air and associated stranding. Corresponding toreported given clinical history of breast abscess. No focal drainablefluid collection. Please note that all CT scans at this facility use dose modulation,iterative reconstruction, and/or weight-based dosing when appropriate toreduce radiation dose to as low as reasonably achievable. Dictated by Roddy Ortiz MD @ 06/19/2023 12:45:40 PM (Electronically Signed) Alison Elmore MOLD [facility] CT * BLOOD CULTURE X2 (06/19/2023 11:49 AM CDT) Only the most recent of4 resultswithin the time period is included. CULTURE No Growth. 06/24/2023 1:51 PM CDT [facility] Blood BLOOD SPECIMEN / Unknown Butterfly / Unknown 06/19/2023 11:49 AM CDT 06/19/2023 12:15 PM CDT Alison Elmore [employer] MICROBIOLOG Y [facility] [address] [place] [address] * (ABNORMAL) CBC WITH AUTO DIFFERENTIAL (06/19/2023 11:39 AM CDT) Only the most recent of3 resultswithin the time period is included. WHITE BLOOD COUNT 5.1 4.5 - 11.0 thou/cu mm 06/19/2023 11:58 AM T [facility] RED BLOOD COUNT 4.05 4.00 - 5.20 mil/cu mm 06/19/2023 11:58 AM [facility] HEMOGLOBIN 10.0(L) 12.0 - 16.0 g/dL 06/19/2023 11:58 AM [facility] HEMATOCRIT 33.1 33.0 - 51.0 % 06/19/2023 11:58 AM [facility] MCV 82 80 - 100 fL 06/19/2023 11:58 AM [facility] MCH 24.7(L) 26.0 - 34.0 pg 06/19/2023 11:58 AM [facility] MCHC 30.2(L) 32.0 - 36.0 g/dL 06/19/2023 11:58 AM [facility] RDW 16.8(H) 11.5 - 15.5 % 06/19/2023 11:58 AM [facility] PLATELET COUNT 314 140 - 440 thou/cu mm 06/19/2023 11:58 AM [facility] MPV 9.9 6.5 - 11.0 fL 06/19/2023 11:58 AM [facility] % NEUT 68.3 % 06/19/2023 11:58 AM [facility] % LYMPH 13.8 % 06/19/2023 11:58 AM [facility] LABORATORY % MONO 9.9 % 06/19/2023 11:58 AM [facility] % EOS 7.2 % 06/19/2023 11:58 AM CDT [facility] % BASO 0.8 % 06/19/2023 11:58 AM CDT [facility] ABSOLUTE NEUTROPHILS 3.5 1.7 - 7.0 thou/cu mm 06/19/2023 11:58 AM CDT [facility] ABSOLUTE LYMPHOCYTES 0.7(L) 0.9 - 2.9 thou/cu mm 06/19/2023 11:58 AM CDT [facility] ABSOLUTE MONOCYTES 0.5 <0.9 thou/cu mm 06/19/2023 11:58 AM CDT [facility] ABSOLUTE EOSINOPHILS 0.4 <0.5 thou/cu mm 06/19/2023 11:58 AM CDT [facility] ABSOLUTE BASOPHILS 0.0 <0.3 thou/cu mm 06/19/2023 11:58 AM CDT [facility] Blood BLOOD SPECIMEN / Unknown Butterfly / Unknown 06/19/2023 11:39 AM CDT 06/19/2023 11:52 AM CDT Alison Elmore NP HEMATOLOGY Performing Organization Address City/[facility]/ZIP Co de Phone Number [facility] [address] [place] [address] * LACTATE VENOUS (06/19/2023 11:39 AM CDT) Only the most recent of4 resultswithin the time period is included. LACTATE,VENOUS 0.7 0.5 - 2.0 mmol/L 06/19/2023 12:08 PM CDT [facility] Blood BLOOD SPECIMEN / Unknown Butterfly / Unknown 06/19/2023 11:39 AM CDT 06/19/2023 11:47 AM CDT Alison Elmore NP CHEMISTRY [facility] [address] [place] [address] * PROCALCITONIN (06/19/2023 11:39 AM CDT) [facility] Signature PROCALCITONIN 0.04 ng/ml 06/19/2023 12:21 PM CDT [facility] Blood BLOOD SPECIMEN / Unknown Butterfly / Unknown 06/19/2023 11:39 AM CDT 06/19/2023 11:47 AM CDT [facility]ATORY - 06/19/2023 12:21 PM CDT Procalcitonin for initial assessment of Lower Respiratory Tract Infection: Results Interpretation <0.10 ng/mL Antibiotic therapy strongly discoraged. ??Indicates absent of bacterial infection. * 0.10 - 0.25 ng/mL Antibiotic therapy discouraged. ??Bacterial infection unlikely. * 0.26 - 0.50 ng/mL Antibiotic therapy encouraged. ??Bacterial infection possible. >0.50 ng/mL Antibiotic therapy strongly encouraged. ??Suggestive of presence of bacterial infection. *Antibiotic therapy should be considered regardless of PCT result if the patient is clinically unstable, is at high risk for adverse outcome, has strong evidence of bacterial pathogen, or the clinical context indicates antibiotic therapy is warranted. ??If antibiotics are withheld, reassess if symptoms persist/worsen and/or repeat PCT measurement within 6-24 hours. ? In order to assess treatment success and to support a decision to discontinue antibiotic therapy, follow up samples should be tested once every 1-2 days, based upon physician discretion taking into account patient's evolution and progress. Procalcitonin for initial assessment of severe sepsis risk: Results Interpretation <0.5 ng/ml A PCT level below 0.5 ng/ml on the first day of ICU admission is associated with a low risk for progression to severe sepsis and/or septic shock. > 2.0 ng/mL A PCT level above 2.0 ng/mL on the first day of ICU admission is associated with a high risk for progression to severe sepsis and/or septic shock. Note: Concentrations < 0.5 ng/mL do not exclude an infection, on account of localized infections (without systemic signs) which can be associated with such low concentrations, or a systemic infection in its initial stages(< 6 hours). Furthermore, increased procalcitonin can occur without infection. PCT concentrations between 0.5 and 2.0 ng/mL should be interpreted taking into account the patient's history. It is recommended to retest PCT within 6-24 hours if any concentrations < 2 ng/mL are obtained. Alison Elmore MOLD SPRAYER SEND OUTS Performing Organization Address [facility] de Phone Number [facility] [address] [place] [id number] * (ABNORMAL) PROTIME-INR (06/19/2023 11:39 AM CDT) Only the most recent of3 resultswithin the time period is included. INR 1.1 <1.3 06/19/2023 11:56 AM CDT [facility] PROTIME 12.5(H) 10.3 - 12.3 sec 06/19/2023 11:56 AM CDT [facility] Blood BLOOD SPECIMEN / Unknown Butterfly / Unknown 06/19/2023 11:39 AM CDT 06/19/2023 11:47 AM CDT Narrative [facility] - 06/19/2023 11:56 AM CDT ?Therapeutic Range 2.0-3.0 for most anticoagulated patients 2.5-3.5 or 4.0 for high risk patients The INR is only used for patients on stable oral anticoagulant therapy. It makes no significant contribution to the diagnosis or treatment of patients whose Protime is prolonged for other reasons. INR results are increased when heparin levels exceed 1.0 U/mL, which corresponds to an aPTT >125 seconds if the patient is on UFH. Alison Elmore NP HEMATOLOGY Performing Organization Address [facility] de Phone Number [facility] [address] [place] [address] * (ABNORMAL) COMP METABOLIC PANEL (06/19/2023 11:39 AM CDT) Only the most recent of2 resultswithin the time period is included. SODIUM 138 136 - 145 mmol/L 06/19/2023 12:10 PM [facility] POTASSIUM 3.7 3.5 - 5.1 mmol/L 06/19/2023 12:10 PM [facility] CHLORIDE 101 98 - 107 mmol/L 06/19/2023 12:10 PM [facility] CO2,TOTAL 27 22 - 29 mmol/L 06/19/2023 12:10 PM [facility] ANION GAP 10 5 - 18 06/19/2023 12:10 PM [facility] GLUCOSE 84 70 - 99 mg/dL 06/19/2023 12:10 PM [facility] CALCIUM 8.7 8.6 - 10.0 mg/dL 06/19/2023 12:10 PM [facility] BUN 9 6 - 20 mg/dL 06/19/2023 12:10 PM [facility] CREATININE 0.59 0.50 - 0.90 mg/dL 06/19/2023 12:10 PM [facility] BUN/CREAT RATIO 15 10 - 20 12:10 PM [facility] eGFR >90 >90 mL/min/1.7 3m2 06/19/2023 12:10 PM [facility] Comment:As of 2021, eG FR is calculated by the CKD-EPI creatinine equation without race adjustment. ??eGFR can be influenced by muscle mass, exercise, and diet. ??The reported eGFR is an estimation only and is only applicable if the renal function is stable. ALBUMIN 4.3 4.0 - 4.9 g/dL 06/19/2023 12:10 PM [facility] PROTEIN,TOTAL 7.3 6.0 - 8.0 g/dL 06/19/2023 12:10 PM [facility] BILIRUBIN,TOTAL 1.0 0.0 - 1.2 mg/dL 06/19/2023 12:10 PM [facility] ALK PHOSPHATASE 235(H) 35 - 104 IU/L 06/19/2023 12:10 PM [facility] ALT (SGPT) 51(H) 10 - 35 IU/L 06/19/2023 12:10 PM CDT [facility] AST (SGOT) 123(H) 10 - 35 IU/L 06/19/2023 12:10 PM CDT [facility] Blood BLOOD SPECIMEN / Unknown Butterfly / Unknown 06/19/2023 11:39 AM CDT 06/19/2023 11:47 AM CDT Alison Elmore NP CHEMISTRY [facility] [address] [place] [address] * (ABNORMAL) HEMOGLOBIN (06/05/2023 9:27 AM CDT) Only the most recent of5 resultswithin the time period is included. HEMOGLOBIN 9.3(L) 12.0 - 16.0 g/dL 06/05/2023 9:47 AM CDT [facility] MCV 82 80 - 100 fL 06/05/2023 9:47 AM CDT [facility] Blood BLOOD SPECIMEN / Unknown Butterfly / Unknown 06/05/2023 9:27 AM CDT 06/05/2023 9:36 AM CDT Kathy Rizzo NP HEMATOLOGY Performing Organization Address City/[facility]/ZIP Co de Phone Number [facility] [address] [place] [address] * POTASSIUM (06/05/2023 9:27 AM CDT) Only the most recent of3 resultswithin the time period is included. POTASSIUM 4.0 3.5 - 5.1 mmol/L 06/05/2023 10:00 AM CDT [facility] Blood BLOOD SPECIMEN / Unknown Butterfly / Unknown 06/05/2023 9:27 AM CDT 06/05/2023 9:36 AM CDT Kathy Rizzo NP CHEMISTRY Performing Organization Address [facility] Co de Phone Number [facility] [address] [place] [address] * (ABNORMAL) CREATININE (06/05/2023 9:27 AM CDT) Only the most recent of3 resultswithin the time period is included. eGFR >90 >90 mL/min/1.7 3m2 06/05/2023 10:00 AM CDT [facility] Comment:As of 2021, eG FR is calculated by the CKD-EPI creatinine equation without race adjustment. ??eGFR can be influenced by muscle mass, exercise, and diet. ??The reported eGFR is an estimation only and is only applicable if the renal function is stable. CREATININE 0.48(L) 0.50 - 0.90 mg/dL 06/05/2023 10:00 AM CDT [facility] Blood BLOOD SPECIMEN / Unknown Butterfly / Unknown 06/05/2023 9:27 AM CDT 06/05/2023 9:36 AM CDT Kathy Rizzo NP CHEMISTRY Performing Organization Address [facility] de Phone Number [facility] [address] [place] [address] * MAGNESIUM (06/05/2023 9:27 AM CDT) Only the most recent of2 resultswithin the time period is included. MAGNESIUM 1.7 1.6 - 2.6 mg/dL 06/05/2023 10:00 AM CDT [facility] Blood BLOOD SPECIMEN / Unknown Butterfly / Unknown 06/05/2023 9:27 AM CDT 06/05/2023 9:36 AM CDT Kathy Rizzo NP CHEMISTRY Performing Organization Address [facility] Co de Phone Number [facility] [address] [place] [address] * GLUCOSE METER (06/05/2023 9:13 AM CDT) Only the most recent of23 resultswithin the time period is included. Pathologist [facility] GLUCOSE METER 99 65 - 100 mg/dL 06/05/2023 11:29 AM CDT [facility] Blood BLOOD SPECIMEN / Unknown 06/05/2023 9:13 AM CDT 06/05/2023 11:29 AM CDT Kathy Rizzo NP CHEMISTRY Performing Organization Address [facility] de Phone Number [facility] [address] [place] [address] * EKG 12 LEAD (06/04/2023 11:46 AM CDT) [facility] Interpretation Normal sinus rhythm Low voltage QRS Cannot rule out Anterior infarct (cited on or before 18-SEP-2022) Abnormal ECG When compared with ECG of 16-FEB-2023 03:45, Vent. rate has decreased BY ??40 BPM Questionable change in initial forces of Lateral leads BEYOND NOW Ventricular Rate 66 BPM BEYOND NOW Atrial Rate 66 BPM BEYOND NOW P-R Interval 166 ms BEYOND NOW QRS Duration 86 ms BEYOND NOW QT 422 ms BEYOND NOW QTc 442 ms BEYOND NOW P Orient 53 degrees BEYOND NOW R Orient -6 degrees BEYOND NOW T Orient 16 degrees BEYOND NOW 06/04/2023 11:4 6 AM CDT 06/04/2023 8:21 PM CDT Kathy Rizzo NP EKG ORD Performing Organization Address [facility] de Phone Number BEYOND NOW [place], [place] * WHITE BLOOD COUNT (06/04/2023 5:50 AM CDT) Only the most recent of2 resultswithin the time period is included. [facility] WHITE BLOOD COUNT 5.1 4.5 - 11.0 thou/cu mm 06/04/2023 6:32 AM CDT [facility] Blood BLOOD SPECIMEN / Unknown Butterfly / Unknown 06/04/2023 5:50 AM CDT 06/04/2023 6:25 AM CDT Kathy Rizzo NP HEMATOLOGY Performing Organization Address [facility] Co de Phone Number [facility] [address] [place] [address] * SODIUM (06/04/2023 5:50 AM CDT) Only the most recent of2 resultswithin the time period is included. SODIUM 138 136 - 145 mmol/L 06/04/2023 6:51 AM CDT [facility] Blood BLOOD SPECIMEN / Unknown Butterfly / Unknown 06/04/2023 5:50 AM CDT 06/04/2023 6:25 AM CDT Kathy Rizzo NP CHEMISTRY Performing Organization Address [facility] Co de Phone Number [facility] [address] [place] [address] * (ABNORMAL) C-REACTIVE PROTEIN (06/03/2023 6:49 AM CDT) C-REACTIVE PROTEIN 3.5(H) <0.5 mg/dL 06/03/2023 7:36 AM CDT [facility] Blood BLOOD SPECIMEN / Unknown Butterfly / Unknown 06/03/2023 6:49 AM CDT 06/03/2023 6:53 AM CDT Rory Boyer DO CHEMISTRY Performing Organization Address [facility] Co de Phone Number [facility] [address] [place] [address] * SCAN-CARDIAC STRIP (06/02/2023 10:13 AM CDT) Scanner OTHER * (ABNORMAL) CREATININE,ISTAT (06/02/2023 6:34 AM CDT) CREATININE, POCT 0.40(L) 0.57 - 1.11 mg/dL 06/02/2023 6:36 AM CDT [facility] Comment:Caution: Patients ta jaleel Hydroxyurea have falsely increased iStat Creatinine results. Verify creatinine results ordering a Creatinine (68840.2) eGFR >90 >90 mL/min/1.7 3m2 06/02/2023 6:36 AM CDT [facility] Comment:As of 2021, eG FR is calculated by the CKD-EPI creatinine equation without race adjustment. eGFR can be influenced by muscle mass, exercise, and diet. The reported eGFR is an estimation only and is only applicable if the renal function is stable. Blood BLOOD SPECIMEN / Unknown 06/02/2023 6:34 AM CDT 06/02/2023 6:36 AM CDT Rory Boyer DO CHEMISTRY [facility] [address] [place] [address] * SCAN-CARDIAC STRIP (06/02/2023 3:50 AM CDT) Scanner OTHER * (ABNORMAL) URINALYSIS MICROSCOPIC (06/01/2023 10:08 PM CDT) RBC 26-50(A) 0-2, None Seen /HPF 06/02/2023 12:02 AM T [facility] WBC >100(A) 0-2, 3-5, None Seen /HPF 06/02/2023 12:02 AM T [facility] BACTERIA Many(A) None Seen, Rare, Few Bacteria/ HPF 06/02/2023 12:02 AM T [facility] EPITHELIAL CELLS Few None Seen, Few Epi/HPF 06/02/2023 12:02 AM T [facility] Mucus Present 06/02/2023 12:02 AM T [facility] WHITE CELL CLUMPS Present(A) (none) 06/02/2023 12:02 AM T [facility] Urine URINE SPECIMEN / Unknown Non-Blood / Unknown 06/01/2023 10:08 PM CDT 06/01/2023 10:[address] BERUMEN URINE [facility] [address] [place] [address] * (ABNORMAL) URINE CULTURE (06/01/2023 10:08 PM CDT) CULTURE RESULT(A) 06/05/2023 9:31 AM CDT [facility] CULTURE >100,000 CFU/mL Escherichia coli 06/05/2023 9:31 AM CDT [facility] CULTURE 10,000-50,000 CFU/mL Enterococcus faecalis 06/05/2023 9:31 AM CDT [facility] Urine URINE SPECIMEN / Unknown Non-Blood / Unknown 06/01/2023 10:08 PM CDT 06/01/2023 10:13 PM CDT Narrative Organism Antibiotic Method Susceptibility Escherichia coli TRIMETHOPRIM/SULF <=1/19: S Escherichia coli AMPICILLIN >=32: R Escherichia coli CEFAZOLIN >=64: R Escherichia coli CEFAZOLIN-UC >=64: R Comment:Cefazolin-UC interpretations are for therapy of uncomplicated UTIs due to E.coli, K.pneumoniae, or P.mirablis. Cefazolin breakpoint is used as a surrogate to predict results for the oral agents - cefdinir, cefuroxime, and cephalexin, when used for therapy of uncomplicated UTIs due to E coli, K, pneumoniae, and P. mirabilis. The FDA recommends cefadroxil susceptibility can be deduced from cefazolin. Escherichia coli GENTAMICIN <=1: S Escherichia coli CEFTRIAXONE <=1: S Escherichia coli CEFTAZIDIME <=1: S Escherichia coli LEVOFLOXACIN <=0.12: S Escherichia coli CIPROFLOXACIN <=0.25: S Escherichia coli PIPERACILLIN/TAZO 64: R Escherichia coli AMPICILLIN/SULBACTAM >=32: R Escherichia coli CEFEPIME <=1: S Escherichia coli TOBRAMYCIN <=1: S Escherichia coli MEROPENEM <=0.25: S Escherichia coli NITROFURANTOIN <=16: S Enterococcus faecalis AMPICILLIN <=2: S Enterococcus faecalis NITROFURANTOIN <=16: S Lane BERUMEN MICROBIOLOG Y [facility] [address] [place] [address], * (ABNORMAL) URINALYSIS W REFLEX MICROSCOPIC IF POSITIVE (06/01/2023 10:08 PM CDT) COLOR Yellow Yellow Color 06/01/2023 10:31 PM [facility] CLARITY Cloudy(A) Clear Clarity 06/01/2023 10:31 PM [facility] SPECIFIC GRAVITY,URINE 1.025 1.010, 1.015, 1.020, 1.025 06/01/2023 10:31 PM [facility] PH,URINE 6.0 6.0, 7.0, 8.0, 5.5, 6.5, 7.5, 8.5 06/01/2023 10:31 PM [facility] UROBILINOGEN, QUALITATIVE Normal Normal EU/dl 06/01/2023 10:31 PM [facility] PROTEIN, URINE 30(A) Negative mg/dL 06/01/2023 10:31 PM [facility] GLUCOSE, URINE Negative Negative mg/dL 06/01/2023 10:31 PM [facility] KETONES,URINE Negative Negative mg/dL 06/01/2023 10:31 PM [facility] BILIRUBIN,URI NE Negative Negative 06/01/2023 10:31 PM [facility] OCCULT BLOOD,URINE Large(A) Negative 06/01/2023 10:31 PM [facility] NITRITE Positive(A) Negative 06/01/2023 10:31 PM [facility] LEUKOCYTE ESTERASE Large(A) Negative 06/01/2023 10:31 PM [facility] Urine URINE SPECIMEN / Unknown Non-Blood / Unknown 06/01/2023 10:08 PM CDT 06/01/2023 10:[address] BERUMEN URINE [facility] [address] [place] [address] * XR CHEST 1 VIEW PORTABLE (06/01/2023 9:20 PM CDT) Anatomical Region Laterality Modality HEART, THORAX, CHEST Digital Rad iography 06/01/2023 9:29 PM CDT Impressions 06/01/2023 9:29 PM CDT 1. No acute cardiopulmonary disease is seen. Dictated by: Pelon Anton MD @ 06/01/2023 21:29:23 (Electronically Signed) Narrative 06/01/2023 9:29 PM CDT For Patients: ??As a result of the Cures Act, medical imaging exams and procedure reports are released immediately into your electronic medical record. ??You may view this report before your referring provider. ??If you have questions, please contact your health care provider. INDICATION: Sepsis TECHNIQUE: Chest radiograph 1 view COMPARISON: 09/18/2022 FINDINGS: Mediastinum: The mediastinum is normal in appearance. The heart silhouette is normal in size and morphology. Lung: Both lungs are unremarkable in appearance. No sign of pleural effusion seen. No pneumothorax is identified. Bone and Soft tissue: Unremarkable for age. Procedure Note Pelon Anton MD - 06/01/2023 For Patients: As a result of the Cures Act, medical imagingexams and procedure reports are released immediately into your electronicmedical record. You may view this report before your referring provider.If you have questions, please contact your health care provider. INDICATION: Sepsis TECHNIQUE: Chest radiograph 1 view COMPARISON: 09/18/2022 FINDINGS: Mediastinum: The mediastinum is normal in appearance. The heart silhouetteis normal in size and morphology. Lung: Both lungs are unremarkable in appearance. No sign of pleuraleffusion seen. No pneumothorax is identified. Bone and Soft tissue: Unremarkable for age. IMPRESSION: 1. No acute cardiopulmonary disease is seen. Dictated by: Pelon Anton MD @ 06/01/2023 21:29:23 (Electronically Signed) Lane BERUMEN [facility] * (ABNORMAL) AEROBIC BACTERIAL CULTURE, STAIN (06/01/2023 8:47 PM CDT) CULTURE RESULT(A) 06/05/2023 8:50 AM CDT [facility] CULTURE 3+ Pseudomonas stutzeri 06/05/2023 8:50 AM CDT [facility] GRAM STAIN No Epithelial cells 06/05/2023 8:50 AM CDT [facility] GRAM STAIN 4+ RBCs 06/05/2023 8:50 AM CDT [facility] GRAM STAIN 2+ PMNs 06/05/2023 8:50 AM CDT [facility] GRAM STAIN 2+ Gram Negative Bacilli 06/05/2023 8:50 AM CDT [facility] Other (Other) Non-Blood / Unknown 06/01/2023 8:47 PM CDT 06/01/2023 8:54 PM CDT Narrative Organism Antibiotic Method Susceptibility Pseudomonas stutzeri TRIMETHOPRIM/SULF <=1/19: S Pseudomonas stutzeri GENTAMICIN <=1: S Pseudomonas stutzeri CEFTAZIDIME <=1: S Pseudomonas stutzeri LEVOFLOXACIN <=0.12: S Pseudomonas stutzeri CIPROFLOXACIN <=0.25: S Pseudomonas stutzeri PIPERACILLIN/TAZO <=4: S Pseudomonas stutzeri CEFEPIME <=1: S Comment:This is an a ppended report. These results have been appended to a previously final verified report. Pseudomonas stutzeri TOBRAMYCIN <=1: S Pseudomonas stutzeri MEROPENEM <=0.25: S Lane [facility] MI[facility]OLOG [facility] [address] [place] [address], * MUSCULOSKELETAL ULTRASOUND (05/28/2023 10:00 AM CDT) Narrative Darryl Hardy MD - 05/28/2023 10:00 AM CDT Darryl Hardy MD ? 05/28/2023 ??1:45 PM MUSCULOSKELETAL ULTRASOUND Date/Time: 05/28/2023 10:00 AM Performed by: Darryl Hardy MD Authorized by: Darryl Hardy MD ?? Comments: ?? Obtained given: ??postop incision bleeding Consent given by: ??patient SubQ tissue of lateral left breast incision: - moderate sized fluid collection with no flow consistent with hematoma, no cobblestoning of subQ tissue otherwise - consistent with subQ hematoma, doubt abscess or cellulitis Darryl Hardy MD 05/28/2023 10:[address] [facility] [phone] Darryl Hardy MD PROCEDURE ORD * (ABNORMAL) RED CELL MORPHOLOGY (05/28/2023 9:28 AM CDT) ELLIPTOCYTES Moderate 05/28/2023 10:04 AM CDT [facility] TEARDROP CELLS Few 05/28/2023 10:04 AM CDT [facility] RBC COMMENT Present(A) RBC morphology appears normal, RBC morphology within normal limits for newborns. 05/28/2023 10:04 AM CDT [facility] Blood BLOOD SPECIMEN / Unknown Butterfly / Unknown 05/28/2023 9:28 AM CDT 05/28/2023 9:35 AM CDT Josi Quevedo RN HEMATOLOGY Performing Organization Address [facility] de Phone Number [facility] [address] [place] [address] * PLATELET ESTIMATE (05/28/2023 9:28 AM CDT) PLATELET ESTIMATE Adequate Adequate, No estimate 05/28/2023 10:04 AM CDT [facility] Blood BLOOD SPECIMEN / Unknown Butterfly / Unknown 05/28/2023 9:28 AM CDT 05/28/2023 9:35 AM CDT Josi Quevedo RN HEMATOLOGY Performing Organization Address [facility]/State/ZIP Co de Phone Number [facility] [address] [place] [address] * (ABNORMAL) MANUAL DIFFERENTIAL (05/28/2023 9:28 AM CDT) % NEUTROPHILS 81.0 % 05/28/2023 10:04 AM T [facility] % LYMPHOCYTES 12.0 % 05/28/2023 10:04 AM T [facility] % MONOCYTES 4.0 % 05/28/2023 10:04 AM [facility] % EOSINOPHILS 3.0 % 05/28/2023 10:04 AM [facility] % BASOPHILS 0.0 % 05/28/2023 10:04 AM [facility] NEUTROPHILS ABSOLUTE 5.5 1.7 - 7.0 thou/cu mm 05/28/2023 10:04 AM T [facility] LYMPHOCYTES ABSOLUTE 0.8(L) 0.9 - 2.9 thou/cu mm 05/28/2023 10:04 AM T [facility] MONOCYTES ABSOLUTE 0.3 <0.9 thou/cu mm 05/28/2023 10:04 AM [facility] EOSINOPHILS ABSOLUTE 0.2 <0.5 thou/cu mm 05/28/2023 10:04 AM [facility] BASOPHILS ABSOLUTE 0.0 <0.3 thou/cu mm 05/28/2023 10:04 AM [facility] Blood BLOOD SPECIMEN / Unknown Butterfly / Unknown 05/28/2023 9:28 AM CDT 05/28/2023 9:35 AM CDT Josi Quevedo RN HEMATOLOGY [facility] [address] [place], [place] [id number] * TYPE AND SCREEN ONLY (05/28/2023 9:28 AM CDT) ABORH O Rh Positive 05/28/2023 10:20 AM T [facility] BLOOD BANK ANTIBODY SCREEN Negative Negative 05/28/2023 10:20 AM T [facility] BLOOD BANK SPECIMEN EXPIRATION DATE/TIME 05/31/23 23:59 05/28/2023 10:20 AM [facility] BLOOD BANK Blood BLOOD SPECIMEN / Unknown Butterfly / Unknown 05/28/2023 9:28 AM CDT 05/28/2023 9:35 AM CDT Brian Ed Triage BLOOD BANK [facility] LABORATORY BLOOD BANK [address] [place] [address] * (ABNORMAL) HEPATIC FUNCTION PANEL (05/28/2023 9:28 AM CDT) ALBUMIN 4.6 4.0 - 4.9 g/dL 05/28/2023 9:55 AM T [facility] PROTEIN,TOTAL 7.9 6.0 - 8.0 g/dL 05/28/2023 9:55 AM [facility] BILIRUBIN,TOTAL 0.5 0.0 - 1.2 mg/dL 05/28/2023 9:55 AM [facility] BILIRUBIN,DIRECT <0.2 0.0 - 0.3 mg/dL 05/28/2023 9:55 AM [facility] BILIRUBIN,INDIRE CT 05/28/2023 9:55 AM [facility] Comment:Unable to calculate, Direct Bili <0.2 ALK PHOSPHATASE 144(H) 35 - 104 IU/L 05/28/2023 9:55 AM [facility] ALT (SGPT) 6(L) 10 - 35 IU/L 05/28/2023 9:55 AM [facility] AST (SGOT) 19 10 - 35 IU/L 05/28/2023 9:55 AM [facility] Blood BLOOD SPECIMEN / Unknown Butterfly / Unknown 05/28/2023 9:28 AM CDT 05/28/2023 9:35 AM CDT Darryl Hardy MD CHEMISTRY [facility] [address] [place] [address] * (ABNORMAL) Basic Metabolic Panel (05/28/2023 9:28 AM CDT) Only the most recent of2 resultswithin the time period is included. SODIUM 142 136 - 145 mmol/L 05/28/2023 9:55 AM [facility] POTASSIUM 4.0 3.5 - 5.1 mmol/L 05/28/2023 9:55 AM [facility] CHLORIDE 104 98 - 107 mmol/L 05/28/2023 9:55 AM [facility] CO2,TOTAL 28 22 - 29 mmol/L 05/28/2023 9:55 AM [facility] ANION GAP 10 5 - 18 05/28/2023 9:55 AM [facility] GLUCOSE 94 70 - 99 mg/dL 05/28/2023 9:55 AM [facility] CALCIUM 10.1(H) 8.6 - 10.0 mg/dL 05/28/2023 9:55 AM [facility] BUN 6 6 - 20 mg/dL 05/28/2023 9:55 AM [facility] CREATININE 0.53 0.50 - 0.90 mg/dL 05/28/2023 9:55 AM [facility] BUN/CREAT RATIO 11 10 - 20 9:55 AM [facility] eGFR >90 >90 mL/min/1.7 3m2 05/28/2023 9:55 AM [facility] Comment:As of 2021, eG FR is calculated by the CKD-EPI creatinine equation without race adjustment. ??eGFR can be influenced by muscle mass, exercise, and diet. ??The reported eGFR is an estimation only and is only applicable if the renal function is stable. Blood BLOOD SPECIMEN / Unknown Butterfly / Unknown 05/28/2023 9:28 AM CDT 05/28/2023 9:35 AM CDT Josi Quevedo RN CHEMISTRY [facility] [address] [place] [address] * PATH TISSUE EXAM (05/09/2023 10:20 AM CDT) Case Report Pathology Report ?Case: [id number] ? Authorizing Provider: ??Alfredo Arce MD ?Collected: ? 05/09/2023 1020 ? Ordering Location: ? [facility] ?Received: ?05/09/2023 1348 ? [facility] ? Pathologist: ? Roddy Wright MD ? Specimens: ?? A) - Left Breast ? B) - Right Breast ? 05/11/2023 11:51 AM CDT [facility] LABORAT[facility]-C ENTRAL LABORATORY Final Diagnosis A) LEFT BREAST, REDUCTION MAMMOPLASTY: 1. Benign breast tissue with proliferative fibrocystic change 2. Negative for atypia and malignancy B) RIGHT BREAST, REDUCTION MAMMOPLASTY: 1. Benign breast tissue with proliferative fibrocystic change 2. Negative for atypia and malignancy 05/11/2023 11:51 AM CDT [facility]OR[facility]-C [facility] LABORAT[facility] Clinical Information Bilateral disabling macromastia 05/11/2023 11:51 AM CDT [facility] Gross Description A) Received in formalin, labeled with the patient's name and left breast, is a 1057 g, 22.0 x 19.0 x 5.0 cm aggregate of yellow-beltran fibrofatty tissue and beltran smooth unremarkable skin. The specimen is serially sectioned revealing yellow-beltran cut surfaces consisting of approximately 70% yellow adipose tissue and 30% beltran fibrous tissue. No discrete lesions are noted. International Bank Manager sections are submitted in 3 cassettes. Time removed from patient: 1020 Time placed in formalin: 1137 Date removed and placed in formalin: 05/09/2023 The specimen was fixed in formalin for a minimum of 6 hours and not longer than 72 hours. The cold ischemic time exceeds 60 minutes. B) Received in formalin, labeled with the patient's name and right breast, is a 706g, 22.0 x 18.5 x 3.5 cm aggregate of yellow-beltran fibrofatty tissue and beltran smooth unremarkable skin. The specimen is serially sectioned revealing yellow-beltran cut surfaces consisting of approximately 70% yellow adipose tissue and 30% beltran fibrous tissue. No discrete lesions are noted. International Bank Manager sections are submitted in 3 cassettes. Time removed from patient: 1049 Time placed in formalin: 1135 Date removed and placed in formalin: 05/09/2023 The specimen was fixed in formalin for a minimum of 6 hours and not longer than 72 hours. KMN 05/09/2023 05/11/2023 11:51 AM CDT [facility] Microscopic Description The final diagnosis is based on microscopic examination of appropriate sections of all specimens. 05/11/2023 11:51 AM CDT [facility] Additional Information Interpreted at [facility] - [address] [facility] [address], [place] [address] 05/11/2023 11:51 AM CDT [facility] Tissue (Left Breast) 05/09/2023 10:20 AM CDT 05/09/2023 1:48 PM CDT Tissue specimen (specimen) (Right Breast) 05/09/2023 10:49 AM CDT 05/09/2023 1:48 PM CDT Alfredo Arce MD PATHOLOGY/CYTOLOGY Performing Organization Address City/State/[facility] Co de Phone Number [facility] [address] [place] [address], * HCHG MASK PR5 (05/09/2023 10:08 AM CDT) Narrative Lucrecia Aguayo CRNA - 05/09/2023 10:08 AM CDT Lucrecia Aguayo CRNA ? 05/09/2023 10:08 AM Procedure: Supraglottic Patient location during procedure: OR Supraglottic Airway Properties Mask Ventilation: easy Type: unique Tube Size: 4 Insertion Attempts: 1 Placement Verification: auscultation and CO2 detection Assessment Assessment: atraumatic and dentition unchanged Alfredo Villa MD ANESTHESIA PX NOTE ORDERABLES * SCAN-CARDIAC STRIP (05/09/2023 12:00 AM CDT) Narrative 05/09/2023 12:00 AM CDT Ordered by an unspecified provider. Other Clinical Staff OTHER * EXTENDED HOLTER (04/23/2023) Laurence BERUMEN [facility] [address] * (ABNORMAL) LIPID PANEL W REFLEX MEASURED LDL (11/30/2022 4:09 PM CDT) CHOLESTEROL,TOTAL 160 100 - 199 mg/dL 11/30/2022 11:51 PM CDT [facility] Comment: Cholesterol, Total Reference Ranges Desirable <200 mg/dL Borderline 200-239 mg/dL High >=240 mg/dL TRIGLYCERIDES 149 <150 mg/dL 11/30/2022 11:51 PM CDT [facility] HDL CHOLESTEROL 36(L) >40 mg/dL 11:51 PM CDT [facility] NON-HDL CHOLESTEROL 124 <145 mg/dl 11/30/2022 11:51 PM CDT [facility] CHOL/HDL RATIO 4.44 <4.50 11/30/2022 11:51 PM CDT [facility] LDL CHOLESTEROL 94 <=130 mg/dL 11/30/2022 11:51 PM CDT [facility] VLDL CHOLESTEROL 30 <=30 mg/dL 11/30/2022 11:51 PM CDT [facility] PROVIDER ORDERED STATUS RANDOM 11/30/2022 11:51 PM CDT [facility] Blood BLOOD SPECIMEN / Unknown Butterfly / Unknown 11/30/2022 4:09 PM CDT 11/30/2022 4:11 PM CDT Laurence BERUMEN CHEMISTRY [facility] [address] [place] [address], * XR MAMMO KAYLEE BILAT SCREEN (06/07/2022 9:19 AM CDT) Anatomical Region Laterality Modality BREASTS, Breast Left, Breast Right Bilateral Mammography Impressions 06/07/2022 9:44 AM CDT ??There is no radiographic evidence for malignancy. ??Recommend annual mammograms. MAMMOGRAM ASSESSMENT: ??ACR 1 Negative PATIENTS: You will also receive a letter with your examination results in an easy to read format. ??If you have questions about your results, please contact your referring provider. Narrative 06/07/2022 9:44 AM CDT For Patients: As a result of the Century Cures Act, medical imaging exams and procedure reports are released immediately into your electronic medical record. You may view this report before your referring provider. If you have questions, please contact your health care provider. XR MAMMO KAYLEE BILAT SCREEN [[id number]] CLINICAL HISTORY: ??This is an asymptomatic 47 y.o. patient. INDICATION FOR EXAM: Mammogram Screening. TECHNIQUE: CC & MLO views were obtained. ??This study was evaluated with the assistance of Computer-Aided Detection. Breast Tomosynthesis was used in interpretation. COMPARISON FILM: This is a baseline study. ? FINDINGS: ??The breasts have scattered areas of fibroglandular density. There are no dominant masses, suspicious micro calcifications or areas of architectural distortion. Laurence Mujica PA MAMMO * ANTI HCV (09/20/2021 11:11 PM CDT) Pathologist [facility] HEPATITIS C ANTIBODY Non-React carly Non-React carly 09/23/2021 4:44 PM CDT [facility] Comment:Antibodies to HCV no t detected; does not exclude the possibility of exposure to HCV. Blood BLOOD SPECIMEN / Unknown Venipuncture / Unknown 09/20/2021 11:11 PM CDT 09/20/2021 11:15 PM CDT Bela Chávez MD [facility] [address] [place] [address], [place] * ANTI HIV 1/2 (09/20/2021 11:11 PM CDT) Pathologist [facility] HIV-1/HIV-2 ANTIBODY Non-Reacti ve Non-Reacti ve 09/23/2021 6:18 PM CDT [facility] Comment:HIV-1 p24 and HIV-1/ HIV-2 Ab not detected. Blood BLOOD SPECIMEN / Unknown Venipuncture / Unknown 09/20/2021 11:11 PM CDT 09/20/2021 11:15 PM CDT Bela Chávez MD SEND OUTS [facility] LABORATORY 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 Expl anation Healthcare Directive 12/15/2022 023 POLST 12/15/2022 Healthcare Directive 09/22/2022 023 * Full Code (Latest Code Status on File) Date Activated Date Inactivated Comments 06/02/2023 2:28 AM 06/05/2023 2:39 PM Question Answer Comments Code Status Discussion: Reviewed Preferences * Full Code Date Activated Date Inactivated Comments 05/09/2023 8:44 AM 05/09/2023 3:22 PM Question Answer Comments Code Status Discussion: Unable to Assess Preferences, Provider to review later * Partial Code Date Activated Date Inactivated Comments 02/17/2023 8:34 PM 02/23/2023 1:10 PM Question Answer Comments Cardio Resuscitation: No Restrictions Ventilation: No Intubation Drug Protocol: No Restrictions * Partial Code Date Activated Date Inactivated Comments 02/15/2023 11:12 PM 02/17/2023 7:14 PM Question Answer Comments Cardio Resuscitation: No Restrictions Ventilation: No Intubation Drug Protocol: No Restrictions * Partial Code Date Activated Date Inactivated Comments 12/15/2022 12:40 PM 12/17/2022 12:51 PM Question Answer Comments Cardio Resuscitation: No Restrictions Ventilation: No Intubation Drug Protocol: No Restrictions Care Teams Cigar Patcher Relationship Specialty Start Date End Date Laurence Mujica PA [address] [place] [address] PCP - General Physician Placement Officer 07/16/14 uYmiko Garcia NP [address] [place] [address] Psychiatry Nurse Practitioner 04/07/16 Nga White MD [address] [place] [address] Surgery - Urology 06/15/22 [facility] [address] [place] [id number] 04/30/23 [facility] [address] [place] [address] 04/30/23
== END 2023-07-04 10:05 | disposition home or self-care (01) ==
PROVIDERS: PCP Physician Assistant; Visit Provider Surgery
DX: T81.31XA Disruption of external operation (surgical) wound, not elsewhere classified, initial encounter (principal); E11.628 Type 2 diabetes mellitus with other skin complications; Z79.84 Long term (current) use of oral hypoglycemic drugs
CPT/HCPCS: G0463

== ENCOUNTER 2023-07-11 10:37 | Outpatient (CLI) | payer MEDICARE, MEDICAID, SELFPAY ==
--- OUTSIDE RECORDS SUMMARY | 2023-07-11 10:39 | XMS_ITS | Encounter Summary ---
Author Organization [facility] Address [address] [place] [address] Care Team Providers Care Hat Sizer Name Role Phone Elsewhere, Pcp Primary Care Provider Unavailabl e Encounter Details Date Type Department Care Team (Late st Contact Info) Description 01/07/2004 Historical Ophthalmology RST OPH Esequiel Reyes M.D. Social History Tobacco Use Types Packs/Day Years Used Date Smoking Tobacco: Never Assessed Sex and Gender Information Value Date Recorded Sex Assigned at Female 01/25/2022 2:30 PM MANAGER SHAREPOINT Gender Identity Female 01/25/2022 2:30 PM MANAGER SHAREPOINT Sexual Orientation Straight 01/25/2022 2: 30 PM MANAGER SHAREPOINT documented as of this encounter Progress Notes * Esequiel Reyes M.D. - 01/07/2004 12:00 AM CST Eye General HISTORY OF PRESENT ILLNESS This morning patient noted painful left eye followed by blurred vision, increase in pressure and redness. 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 Patient here to determine left eye problem, Has been told it could be preorbital tumor, pars planitis or , MS. Patient has had bout of pars planitis in the left eye 14 years ago. Pain is left temporal, frontal and especially with palpation of eyelid. Left eye jackson and is lightsensitive. On Ishihara color testing, patient able to see the number 2 on the test page (12) and single numberof another double digit page. 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 See me Sunday next. 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
--- OUTSIDE RECORDS SUMMARY | 2023-07-11 10:39 | XMS_ITS | Encounter Summary ---
Author Organization [facility] Address [address] [place] [address] Care Team Providers Care Processing Spec Name Role Phone Elsewhere, Pcp Primary Care Provider Unavailabl e Reason for Referral * Physical Therapy (Routine) - Authorized Specialty Diagnoses / Procedures Referred By David arnold Referred To Contact Physical Therapy Diagnoses Demyelinating Disease Central Nervous System (HCC) Wu Herrera M.B., Ch.B. [address] [place] [phone] Referral ID Status Reason Start Date Expiration Date Visits Requested Visits Authorized [id number] Authorized Service not available in [facility] 04/30/2023 10/29/2024 1 1 Reason for Visit * Reason Onset Date Comments External PT order 04/25/2023 Encounter Details Date Type Department Care Team (Latest Contact Info) Description 04/25/2023 Clinical Communication Department of Neurology in [address] [phone] Wu Herrera M.B., Ch.B. [address] [place] [phone] External PT order Social History Tobacco Use Types Packs/Day Years Used Date Smoking Tobacco: Light Smoker Smokeless Tobacco: Never Comments:Smokes more when st ressed [facility] Utilities Answer Date Recorded In the past 12 months has th e electric, gas, oil, or water company threatened to shut off services in your home? Yes 03/31/2023 Humiliation, Afraid, Rape, and Kick questionnair e Answer Date Recorded Within the last year, have y ou been afraid of your partner or ex-partner? No 01/25/2022 Within the last year, have y ou been humiliated or emotionally abused in other ways by your partner or ex-partner? No Within the last year, have y ou been kicked, hit, slapped, or otherwise physically hurt by your partner or ex-partner? No 01/25/2022 Within the last year, have y ou been raped or forced to have any kind of sexual activity by your partner or ex-partner? No 01/25/2022 Social Connection and Isolation Panel [NHANES] A nswer Date Recorded In a typical week, how many times do you talk on the phone with family, friends, or neighbors? Never 01/25/2022 How often do you get togethe r with friends or relatives? Patient declined 01/25/2022 How often do you attend temple or religion serv ices? Never 01/25/2022 Do you belong to any clubs o r organizations such as temple groups, unions, fraternal or athletic groups, or school groups? No 01/25/2022 How often do you attend meet ings of the clubs or organizations you belong to? Never 01/25/2022 Are you , , di vorced, , never , or living with a partner? 01/25/2022 AUDIT-C Answer Date Recorded Q1: How often do you have a drink containing alc ohol? Never 01/25/2022 Average Number of Drinks Not on file 022 Frequency of Binge Drinking Not on file 01/06 Overall Financial Resource Strain (CARDIA) Answe r Date Recorded How hard is it for you to pa y for the very basics like food, housing, medical care, and heating? Very hard 01/25/2022 [place] [facility] - Occupational Stress Questionnaire Answer Date Recorded Do you feel stress - tense, restless, nervous, or anxious, or unable to sleep at night because your mind is troubled all the time - these days? Very much 01/25/2022 Exercise Vital Sign Answer Date Recorde d On average, how many days pe r week do you engage in moderate to strenuous exercise (like a brisk walk)? 0 days 03/31/2023 On average, how many minutes do you engage in exercise at this level? 10 min 03/31/2023 Hunger Vital Sign Answer Date Recorded Within the past 12 months, y ou worried that your food would run out before you got the money to buy more. Often true 03/31/19 Within the past 12 months, t he food you bought just didn't last and you didn't have money to get more. Often true 03/31/2023 PRAPARE - Transportation Answer Date Re corded In the past 12 months, has l ack of transportation kept you from medical appointments or from getting medications? Yes 03/09 In the past 12 months, has l ack of transportation kept you from meetings, work, or from getting things needed for daily living? No 03/31/2023 Housing Stability Vital Sign Answer Jaden e Recorded In the last 12 months, was t here a time when you were not able to pay the mortgage or rent on time? Yes 01/25/2022 In the last 12 months, how many places have you lived? 3 01/25/2022 In the last 12 months, was t here a time when you did not have a steady place to sleep or slept in a senior care (including now)? No 01/25/2022 Nutrition Answer Date Recorded Nutrition: EVOO Fat Source No 03/31 On average, how many serving s of fruits and vegetables do you eat per day (serving size is equal to 1 cup or approximately the size of a tennis ball)? 0-2 03/31/2023 Dental Answer Date Recorded Dental: Regular Dentist Yes 01/26/20 Employment Answer Date Recorded Employment status Permanently disabled Education Answer Date Recorded What is the highest level of school you have completed or the highest degree you have received? 12th grade 01/25/2022 Sex and Gender Information Value Date Recorded Sex Assigned at Female 01/25/2022 2:30 PM ELECTRIC ENGINE MECHANIC Gender Identity Female 01/25/2022 2:30 PM ELECTRIC ENGINE MECHANIC Sexual Orientation Straight 01/25/2022 2: 30 PM ELECTRIC ENGINE MECHANIC documented as of this encounter Miscellaneous Notes * Addendum Note - Wu Herrera M.B., Ch.B. - 04/30/2023 3:45 PM CDTAddended by: WU HERRERA on: 04/30/2023 03:45 PM Modules accepted: Orders * Telephone Encounter - Megan Perez M.S.N., R.N. - 04/30/2023 3:36 PM CDT [facility] explained the agency they have 48 hours to contact patient for services. There was an initial delay in identifying where patient wanted to receive PT and OT from. Request for new orders with a notation of with a start of care on 05/01/23. * Telephone Encounter - Wu Herrera M.B., Ch.B. - 04/30/2023 8:52 AM CDT The order usually has a date which it was requested, the day that they start is on the discretion of the provider. * Telephone Encounter - Kellee Garcia L.P.N. - 04/27/2023 8:57 AM CDT Contacted patient who reports that she has had in home PT in the past but is unaware of the agency which provided the service. TAPE CUTTER contacted [facility] and spoke with Araceli who confirmed that patient has received PT services from them in the past. Araceli said that the order can be faxed to them and it will be reviewed by the nurse manager voice and they will let us know if they are able to provide the service requested. Order along with face sheet faxed to [facility] Fax @ [phone] Patient was also called and updated on the agency where order was faxed. * Telephone Encounter - Wu Herrera M.B., Ch.B. - 04/25/2023 3:20 PM CDT I have put in the order for the external PT, please fax to patient. * Telephone Encounter - Megan Perez M.SJosee, R.N. - 04/25/2023 10:12 AM CDT ----- Message from Yara Rubi sent at 04/25/2023 9:22 AM CDT ----- Patient will need outside order for PT in [place]. Thank you. documented in this encounter Plan of Treatment Not on file documented as of this encounter Visit Diagnoses Diagnosis Demyelinating Disease Central Nervous System (HCC)- Primary documented in this encounter Care Teams Processing Spec Relationship Specialty Start Date End Date Elsewhere, Pcp PCP - General Family Medicine 12/19/20 documented as of this encounter
--- OUTSIDE RECORDS SUMMARY | 2023-07-11 10:39 | XMS_ITS | Patient Health Record ---
Author Organization [facility] Address [address] [place] [address] [address] [place] [address] Care Team Providers Care Catering Director Name Role Phone Laurence Mujica Primary Care Provider UnavailDavid Tripathi Unavailable [phone] Raymond Jurado DO Unavailable Unavailable Victor Hugo Wheat Unavailable [phone] Anton Griffin Unavailable [phone] Rod Golden Unavailable [phone] Fabian Walsh Unavailable [phone] ALLERGIES Allergen (clinical drug ingredient) Drug/Non Drug Allergy documented on EMR Reaction Allergy Type Onset Date Status fentanyl Fentanyl Hallucinations Drug Allergy Ac tive RESULTS Component Value Reference Range Notes Urine toxicology Reviewed date:05/21/2023 12:21:59 PM Interpretation:See Results Performing Lab: Notes/Report: See Results CARLOS Buprenophine OPI 300 0 AMP Ethanol MET Creatinine MDMA pH Specific [place] BAR BZO OXY See Results MTD Urine toxicology Reviewed date:05/21/2023 12:21:59 PM Interpretation:See Results Performing Lab: Notes/Report: See Results CARLOS Buprenophine OPI 300 0 AMP Ethanol MET Creatinine MDMA pH Specific [place] BAR BZO OXY See Results MTD Urine toxicology Reviewed date:03/07/2023 03:21:55 PM Interpretation:See Results Performing Lab: Notes/Report: See Results CARLOS Buprenophine OPI 300 1000 AMP Ethanol MET Creatinine MDMA pH Specific [place] BAR BZO OXY See Results MTD Urine toxicology Reviewed date:11/14/2022 03:40:36 PM Interpretation:See Results Performing Lab: Notes/Report: See Results CARLOS Buprenophine OPI 300 0 AMP Ethanol MET Creatinine MDMA pH Specific [place] BAR BZO OXY See Results MTD Urine toxicology Reviewed date:11/14/2022 03:40:36 PM Interpretation:See Results Performing Lab: Notes/Report: See Results CARLOS Buprenophine OPI 300 0 AMP Ethanol MET Creatinine MDMA pH Specific [place] BAR BZO OXY See Results MTD Urine toxicology Reviewed date:08/31/2022 02:01:33 PM Interpretation:See Results Performing Lab: Notes/Report: See Results CARLOS Buprenophine OPI 300 1000 AMP Ethanol MET Creatinine MDMA pH Specific [place] BAR BZO OXY See Results MTD Urine toxicology Reviewed date:08/31/2022 02:01:33 PM Interpretation:See Results Performing Lab: Notes/Report: See Results CARLOS Buprenophine OPI 300 1000 AMP Ethanol MET Creatinine MDMA pH Specific [place] BAR BZO OXY See Results MTD REASON FOR REFERRAL No Information MEDICATIONS Medication SIG (Take, Route, Frequency, Duration) Notes Start Date End Date Status DULoxetine HCl 60 MG Oral for 32 Days Active ARIPiprazole 30 MG 1 tablet Oral Once a day for 90 days Active Omeprazole 40 MG Oral for 90 Days Active Eszopiclone 3 MG 1 tablet immediately before bedtime Oral Once a day for 30 days Active Trulicity 0.75 MG/0.5ML Subcutaneous for 28 Days Active Atorvastatin Calcium 20 MG Oral for 90 Days Active Famotidine 40 MG Oral for 90 Days Active Dimethyl Fumarate 240 MG TAKE ONE CAPSUL E BY MOUTH TWO TIMES A DAY Oral for 30 Days Active Fluticasone Propionate 50 MCG/ACT INHALE 1-2 SPRAYS TO BOTH NOSTRILS ONCE DAILY. Nasal for 24 Days Active Cetirizine HCl 10 MG Oral for 30 Days Active Amphetamine-Dextroamphetam ine 15 MG 1 tablet Orally once a day A ctive Ondansetron [address] 1 TABLET (4 MG ) ON THE TONGUE EVERY 8 HOURS IF NEEDED FOR NAUSEA/VOMITING. Oral for 10 Days Active Amantadine HCl 100 MG Oral for 30 Days Active oxyCODONE HCl 10 MG 1 tablet as needed O rally (ok to fill 07/07/2023) every 6 hrs for 30 days 07/07/2023 Active SOCIAL HISTORY Tobacco Use: Social History [...] dependence, uncomplicated (F11.20) Active confirmed Opioid dependence (03549593) Problem Personality disorder, unspecified (F60.9) 9 Active confirmed Unspecified Personality Disorder; rule out mixed ( borderline, dependent, negativistic, explosive traits); rule out organic (27457636) Problem Other chronic pain (G89.29) Active confirmed Chronic pain (08187950) Problem Rheumatoid arthritis, unspecified (M06.9) Active confirmed Rheumatoid arthritis (79277982) Problem Systemic lupus erythematosus, unspecified (M32.9) Active confirmed Systemic lupus erythematosus (60332401) Problem Pain in leg, unspecified (M79.606) Active confirmed Pain in limb (88921552) Problem Fibromyalgia (M79.7) Active confirmed Fibromyalgia (296726555) VITAL SIGNS Blood pressure diastolic 70 mm Hg 07/04/2023 Height 69 in 07/04/2023 Blood pressure systolic 112 mm Hg 07/04/2023 Weight 187 lbs 06/06/2023 BMI 27.61 kg/m2 06/06/2023 Encounters Encounter Location Date Provider Diagnosis [address] [facility] [address] [place] [address] 08/01/2022 Anton Bolick Pain in leg, unspecified M79.606 ; Fibromyalgia M79.7 ; Other chronic pain G89.29 ; Opioid dependence, uncomplicated F11.20 and [facility] (current) use of opiate analgesic Z79.891 [facility] [address] [place] [address] 08/22/2022 Victor Hugo Wheat [address] [facility] [address] [place] [address] 08/30/2022 Anton Bolick Pain in leg, unspecified M79.606 ; Fibromyalgia M79.7 and Other chronic pain G89.29 [address] [facility] [address] [place] [address] 09/27/2022 Anton Bolick Pain in leg, unspecified M79.606 ; Fibromyalgia M79.7 and Other chronic pain G89.29 [address] [facility] [address] [place] [address] 10/25/2022 Anton Bolick Pain in leg, unspecified M79.606 ; Fibromyalgia M79.7 ; Other chronic pain G89.29 ; [facility] (current) use of opiate analgesic Z79.891 and Opioid dependence, uncomplicated F11.20 [facility] [address] [place] [address] 10/26/2022 Anton Bolick Other chronic pain G89.29 [address] [facility] [address] [place] [address] 11/21/2022 Anton Bolick Pain in leg, unspecified M79.606 ; Fibromyalgia M79.7 and Other chronic pain G89.29 [address] [facility] [address] [place] [address] 12/20/2022 Anton Bolick Pain in leg, unspecified M79.606 ; Fibromyalgia M79.7 and Other chronic pain G89.29 [facility] [address] [place] [address] [address] [place] [address] 12/25/2022 Anton Bolick Other chronic pain G89.29 [address] [facility] [address] [place] [address] 01/16/2023 Anton Bolick Pain in leg, unspecified M79.606 ; Fibromyalgia M79.7 and Other chronic pain G89.29 [address] [facility] [address] [place] [address] 2023 Anton Bolick Pain in leg, unspecified M79.606 ; Fibromyalgia M79.7 ; Other chronic pain G89.29 ; 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.891 ; Opioid dependence, uncomplicated F11.20 and Encounter for screening for other disorder Z13.89 [facility] [address] [place] [address] [address] [place] [address] 2023 Anton Bolick [address] [facility] [address] [place] [address] 02/01/2023 Fabian Walsh [address] [facility] [address] [place] [address] 02/06/2023 Anton Bolick Pain in leg, unspecified M79.606 ; Fibromyalgia M79.7 ; Other chronic pain G89.29 ; 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29 ; [facility] (current) use of opiate analgesic Z79.891 ; Opioid dependence, uncomplicated F11.20 and Encounter for screening for other disorder Z13.89 [address] [facility] [address] [place] [address] 03/08/2023 Rod Golden Pain in leg, unspecified M79.606 ; Fibromyalgia M79.7 and Other chronic pain G89.29 [address] [facility] [address] [place] [address] 03/13/2023 Anton Bolick Pain in leg, unspecified M79.606 ; Fibromyalgia M79.7 and Other chronic pain G89.29 [address] [facility] [address] [place] [address] 04/10/2023 Anton Bolick Fibromyalgia M79.7 ; Pain in leg, unspecified M79.606 and Other chronic pain G89.29 [address] [facility] [address] [place] [address] 05/08/2023 Anton Bolick Fibromyalgia M79.7 ; Pain in leg, unspecified M79.606 ; Other chronic pain G89.29 ; [facility] (current) use of opiate analgesic Z79.891 and Opioid dependence, uncomplicated F11.20 [address] [facility] [address] [place] [address] 05/09/2023 Anton Griffin [facility] [address] [facility] [address] [place] [address] 05/11/2023 Anton Griffin [address] [facility] [address] [place] [address] 06/06/2023 Anton Griffin Fibromyalgia M79.7 ; Pain in leg, unspecified M79.606 and Other chronic pain G89.29 [address] [facility] [address] [place] [address] 07/04/2023 Anton Griffin Other chronic pain G89.29 and Pain in leg, unspecified M79.606 ASSESSMENTS Encounter Date Diagnosis Assessment Notes Treatment Notes Treatment Clinical Notes 12/20/2022 Pain in leg, unspecified (ICD-10 - M79.606) 12/25/2022 Other chronic pain (ICD-10 - G89.29) 01/16/2023 Pain in leg, unspecified (ICD-10 - M79.606) 04/10/2023 Pain in leg, unspecified (ICD-10 - M79.606) 04/10/2023 Fibromyalgia (ICD-10 - M79.7) 07/04/2023 Other chronic pain (ICD-10 - G89.29) Mariana returns to clinic today for a follow up evaluation regarding her chronic dispersed body pain. I have reviewed the [facility] database and did not find any inconsistencies. We discussed her current symptoms and medications. I will continue with a treatment plan consisting of medication management at this time. Regarding medications, I refilled his Oxycodone 10mg as it continues to provide her with adequate pain relief without adverse side effects. This treatment plan was reviewed with Mariana, and she was agreeable. I will continue to monitor her progress and she will follow up in one month or sooner if needed. Plan:1. Refill Oxycodone 10mg2. Follow up in 1 month Discharge instructions [...] call with any questions, problems or concerns. 07/04/2023 Pain in leg, unspecified (ICD-10 - M79.606) 06/06/2023 Fibromyalgia (ICD-10 - M79.7) 03/13/2023 Pain in leg, unspecified (ICD-10 - M79.606) 03/08/2023 Pain in leg, unspecified (ICD-10 - [...] - M79.606) 05/08/2023 Fibromyalgia (ICD-10 - M79.7) 05/08/2023 Other chronic pain (ICD-10 - G89.29) Mariana returns to clinic today for a follow up evaluation regarding her chronic pain. I have reviewed the [facility] database and did not find any inconsistencies. [...] with any questions, problems or concerns. 08/01/2022 Fibromyalgia (ICD-10 - M79.7) 08/30/2022 Fibromyalgia (ICD-10 - M79.7) 09/27/2022 Fibromyalgia (ICD-10 - M79.7) 10/25/2022 Fibromyalgia (ICD-10 - M79.7) 11/21/2022 Fibromyalgia (ICD-10 - M79.7) 2023 Fibromyalgia (ICD-10 - M79.7) 02/06/2023 Fibromyalgia (ICD-10 - M79.7) 03/07/2023 Fibromyalgia (ICD-10 - M79.7) 03/08/2023 Fibromyalgia (ICD-10 - M79.7) 03/13/2023 Fibromyalgia (ICD-10 - M79.7) 06/06/2023 Pain in leg, unspecified (ICD-10 - M79.606) 01/16/2023 Fibromyalgia (ICD-10 - M79.7) 04/10/2023 Other chronic pain (ICD-10 - G89.29) Mariana returns to clinic today for a follow up evaluation regarding her chronic knees to feet pain. I have reviewed the [facility] database and did not find any inconsistencies. [...] with any questions, problems or concerns. 12/20/2022 Fibromyalgia (ICD-10 - M79.7) 12/20/2022 Other chronic pain (ICD-10 - G89.29) Mariana returns to clinic today for follow up of chronic dispersed body pain. I have reviewed the [facility] database and did not find any inconsistencies. [...] dispersed body pain. I have reviewed the [facility] database and did not find any inconsistencies. [...] call with any questions, problems or concerns. 03/13/2023 Other chronic pain (ICD-10 - G89.29) Mariana returns to clinic today for a follow up evaluation regarding her chronic knees to feet pain. I have reviewed the [facility] database and did not find any inconsistencies. [...] with any questions, problems or concerns. 06/06/2023 Other chronic pain (ICD-10 - G89.29) Mariana returns to clinic today for a follow up evaluation regarding her chronic pain. I have reviewed the [place] [employer] [facility] database and did not find any inconsistencies. [...] her chronic pain. I have reviewed the [place] [employer] [facility] database and we discussed her current symptoms and medications. Due to her recent procedure and prison treatment, Mariana has been prescribed sufficient pain medication for the time being. I have obtained ROIs to [facility] and the prison for further evaluation of her most recent treatment history. Otherwise she will follow up in a week to further discuss medication management. This treatment plan was reviewed with Mariana, and she was agreeable. Plan:1. BRITNEY to [facility] and nursing ford2. Continue Oxycodone 20mg BID3. Follow up in [...] with any questions, problems or concerns. 03/07/2023 Other chronic pain (ICD-10 - G89.29) 02/06/2023 Other chronic pain (ICD-10 - G89.29) 2023 Other chronic pain (ICD-10 - G89.29) Mariana returns to clinic today for follow up of chronic dispersed body pain. I have reviewed the [place] [employer] [facility] database and did not find any inconsistencies. [...] dispersed body pain. I have reviewed the [facility] database and did not find any inconsistencies. [...] dispersed body pain. I have reviewed the [place] [employer] database and did not find any inconsistencies. [...] dispersed body pain. I have reviewed the [place] [employer] database and did not find any inconsistencies. [...] dispersed body pain. I have reviewed the [place] [employer] [facility] database and did not find any inconsistencies. [...] dispersed body pain. I have reviewed the [place] [employer] database and did not find any inconsistencies. [...] with any questions, problems or concerns. 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..] screening for other disorder (ICD-10 - Z13.89) 2023 Other I, Maribelariana kong, am serving as a scribe to document services personally performed by Anton Griffin PA-C, based upon my observations and the provider's statements to me. All documentation has been reviewed by the aforementioned PAMichaelC. I, Anton Griffin PA-C, attest that the above named individual is acting in scribe capacity, has observed my performance of the services and has documented them in accordance with my direction. The documentation recorded by the scribe accurately reflects the service I personally performed and the decisions made during the clinic visit. 12/20/2022 Other Garret Min, am serving as a scribe to document services personally performed by Anton Griffin PA-C, based upon my observations and the provider's statements to me. All documentation has been reviewed by the aforementioned PA-C. I, Anton Griffin PA-C, attest that the above named individual is acting in scribe capacity, has observed my performance of the services and has documented them in accordance with my direction. The documentation recorded by the scribe accurately reflects the service I personally performed and the decisions made during the clinic visit. 08/01/2022 Other Navneet Min , am serving as a scribe to document services personally performed by Anton Griffin PA-C, based upon my observations and the provider's statements to me. All documentation has been reviewed by the aforementioned PAMichaelC as well as Albin Michaud MD, prior [...] the decisions made by her. 08/30/2022 Other Mechelle, Adry bradley, am serving as a scribe to document services personally performed by Anton Griffin PA-C, based upon my observations and the provider's statements to me. All documentation has been reviewed by the aforementioned MIRELLA. Mechelle, Anton Griffin PA-C, attest that the above [...] made during the clinic visit. 10/25/2022 Other Mechelle, Adry bradley, am serving as a scribe to [...] performed and the decisions made by them. 04/10/2023 Other Nette Min, am serving as a scribe to [...] performed and the decisions made by her. 03/07/2023 Other I, Vickey Strong, am serving [...] being entered into the official medical record. Victor Hugo Min MD attest that the above named individual is acting in scribe capacity, has observed Rod Golden's performance of the services and has documented them in accordance with her direction. The documentation recorded by the scribe accurately reflects the service Rod Golden PA-C, personally performed and the decisions made by her. 11/21/2022 Other Mechelle, Maribel kong, am serving as a scribe to document services personally performed by Anton Griffin PA-C, based upon my observations and the provider's statements to me. All documentation has been reviewed by the aforementioned MIRELLA as well as Victor Hugo Wheat MD, prior to being entered into the official medical record. Victor Hugo Min MD attest that the above named individual is acting in scribe capacity, has observed Anton Griffin's performance of the services and has documented them in accordance with her direction. The documentation recorded by the scribe accurately reflects the service Anton Griffin PA-C, personally performed and the decisions made by her. 03/13/2023 Other I, Vickey Strong, am serving as [...] performed and the decisions made by her. 01/16/2023 Other I, Chris Teixeira , am serving as a scribe [...] to document services personally performed by Anton Grififn PA-C, based upon my observations and the [...] the decisions made by her. 06/06/2023 Other I, Alex ceballos, am serving as a scribe to document [...] made during the clinic visit. 07/04/2023 Other I, Vickey Strong, am serving as [...] TREATMENT Next Appt Details Provider Name:Anton schmidt, 07/31/2023 01:45:00 PM, [address], [address], [place], [address], Insurance Providers Payer Name Payer Address Payer Phone Subscriber Number Group Number Insured Name Patient Relationship to Insured Coverage Start Date Coverage End Date [facility] Complete/A LEYDA [address] [address] [place] [address] [id number] Mariana Muhammad Self - patient is the insured 4 [facility] [address] [place] [address] [phone] [id number] Mariana Muhammad Self - patient is the insured 4 Medicare Part B [employer] [address] [facility] [address] [id number] Mariana Muhammad Self - patient is the insured 3 [facility] [address] [place], [place] [id number] Mariana Muhammad Self - patient is the insured 3 MEDICAL (GENERAL) HISTORY Medical History History ICD Code Acid reflux Anxiety Arthritis Depression Diabetes Fibromyalgia Migraine headaches Multiple sclerosis, relapsing-remitting Rheumatoid arthritis Thyroid problem Lupus PTSD (post-traumatic stress disorder) Chronic insomnia Convulsions Surgical History Surgery Date(Month/Year) Breast reduction 05/2023 Eye surgery sinus surgery tonsillectomy cholecystectomy hysterectomy Hospitalization History Reason Date(Month/Year) ER and TCU 02/2023 MS relapse 02/2021 MS relapse 12/2020
--- OUTSIDE RECORDS SUMMARY | 2023-07-11 10:39 | XMS_ITS | Encounter Summary ---
Author Organization [facility] Address [address] [place] [address] Care Team Providers Care Carbon Cutter Name Role Phone Elsewhere, Pcp Primary Care Provider Unavailabl e Encounter Details Date Type Department Care Team (Late st Contact Info) Description 03/26/2015 Historical Ophthalmology RST OPH Adolph De Santiago M.D., Ph.D. 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 - 03/26/2015 3:05 PM CST Eye General CHIEF COMPLAINT Pain; right eye HISTORY OF PRESENT ILLNESS Pain; right eye; x 1 week; constantly; 10/10. Blurred vision; left eye; x several days; on and off. Pain started around the right eye 3 days ago, 10/10. She feels it is worsening. Worse with light and with eye movements. Mild pressure around the left eye. She has intermittent blurred vision in the left eye, with fluctuations between minutes to a week at a time. She reports a flare up of pars planitis 2 months ago. This was treated with a shot in the eyeball. This resolved after this. 1 week of right sided hemianesthesia. 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 MRI showed enhancement of the optic nerve sheath on the right and new periventricular white matter changes. This is an odd constellation of symptoms because optic perineuritis is not typically associated with multiple sclerosis. She has had quite the workup for infectious/inflammatory conditions, which have been negative other than elevated oligoclonal bands. There is no obvious radiographic or clinical evidence of optic neuritis on the left. Unfortunately there was overlay with her sellers an critical flicker fusion that makes them uninterpretable. She was full to confrontation visual sellers. -Recommend 1g IV steroids x 3 days followed by PO 80mg prednisone for 11 days followed by a slow taper over a month (longer taper because optic perineuritis is typically more erna to orbital inflammation than demyelinating disease). She has had 3 bouts of orbital inflammation so I think would benefit from a steroid sparing agent. -Obtain CT chest and abdomen (eval for sarcoid, eval elevated liver enzymes), lysozyme, tick born panel, NMO to trigger anti-MOG, quantiferon f/u with Neurology in April as scheduled I will also place a consult to Rheumatology for consideration of a steroid sparing agent. 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
--- OUTSIDE RECORDS SUMMARY | 2023-07-11 10:39 | XMS_ITS | Encounter Summary ---
Author Organization [facility] Address [address] [place] [address] Care Team Providers Care Furniture Mover Helper Name Role Phone Elsewhere, Pcp Primary Care Provider Unavailabl e Encounter Details Date Type Department Care Team (Late st Contact Info) Description 01/22/2004 Historical Ophthalmology RST OPH Roddy Palmer M.D. [address] [place] [id number] Social History Tobacco Use Types Packs/Day Years Used Date Smoking Tobacco: Never Assessed Sex and Gender Information Value Date Recorded Sex Assigned at Female 01/25/2022 2:30 PM HAND WOODWORKING SANDER Gender Identity Female 01/25/2022 2:30 PM HAND WOODWORKING SANDER Sexual Orientation Straight 01/25/2022 2: 30 PM HAND WOODWORKING SANDER documented as of this encounter Progress Notes * Roddy Palmer M.D. - 01/22/2004 12:00 AM CST Eye General HISTORY OF PRESENT ILLNESS 28 year old referred for episcleritis scleritis, with optic atrophy right eye, and pars planitis left eye. Vision is continuing to be blurred. Some discomfort in the left eye. Pred Forte helps this. IMPRESSION / REPORT / PLAN #1 Episcleritis, scleritis #2 Optic atrophy R #3 Pars planitis L Inflammation has resolved, she would benefit from a refration. Will continue prednisolone at [place], recheck 3 weeks with refraction. DIAGNOSIS #1 Episcleritis, scleritis #2 Optic atrophy R #3 Pars planitis L [facility] Reports - EYEGEN Id: [id number] Status: Fnl documented in this encounter Plan of Treatment Not on file documented as of this encounter Visit Diagnoses Not on filedocumented in this encounter Additional Health Concerns Infection Onset Date Last Indicated Resolved Time COVID19 Pending 12/17/2020 12/17/2020 01/06/2021 4 :54 AM HAND WOODWORKING SANDER documented as of this encounter Care Teams Furniture Mover Helper Relationship Specialty Start Date End Date Elsewhere, Pcp PCP - General Family Medicine 12/19/20 documented as of this encounter
--- OUTSIDE RECORDS SUMMARY | 2023-07-11 10:39 | XMS_ITS | Encounter Summary ---
Author Organization [facility] Address [address] [place] [address] Care Team Providers Care Industrial Roof Plumber Name Role Phone Elsewhere, Pcp Primary Care Provider Unavailabl e Encounter Details Date Type Department Care Team (Late st Contact Info) Description 01/11/2004 Historical Ophthalmology RST OPH Esequiel Reyes M.D. Social History Tobacco Use Types Packs/Day Years Used Date Smoking Tobacco: Never Assessed Sex and Gender Information Value Date Recorded Sex Assigned at Female 01/25/2022 2:30 PM WEBFED OFFSET PRESS OPERATOR Gender Identity Female 01/25/2022 2:30 PM WEBFED OFFSET PRESS OPERATOR Sexual Orientation Straight 01/25/2022 2: 30 PM WEBFED OFFSET PRESS OPERATOR documented as of this encounter Progress Notes * Esequiel Reyes M.D. - 01/11/2004 12:00 AM CST Eye General CHIEF COMPLAINT Recheck pars planitis,episcleritis left HISTORY OF PRESENT ILLNESS Patient feels situatin has improved. Vision continues to be blurry; pain decreased. Redness has gone away. Photophobia with intense light. PF drops burn when being instilled. IMPRESSION / REPORT / PLAN #1 Episcleritis, scleritis #2 Optic atrophy R #3 Pars planitis L Continue Pred Forte 5 more days, then 3 times daily for 3 days, then twice daily. See Dr. Palmer towards end of next week DIAGNOSIS #1 Episcleritis, scleritis #2 Optic atrophy R #3 Pars planitis L CD[facility] Reports - EYEGEN Id: [id number] Status: Fnl documented in this encounter Plan of Treatment Not on file documented as of this encounter Visit Diagnoses Not on filedocumented in this encounter Additional Health Concerns Infection Onset Date Last Indicated Resolved Time COVID19 Pending 12/17/2020 12/17/2020 01/06/2021 4 :54 AM WEBFED OFFSET PRESS OPERATOR documented as of this encounter Care Teams Industrial Roof Plumber Relationship Specialty Start Date End Date Elsewhere, Pcp PCP - General Family Medicine 12/19/20 documented as of this encounter
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
--- OUTSIDE RECORDS SUMMARY | 2023-07-11 10:39 | XMS_ITS | Encounter Summary ---
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 [address] [place] [phone] [facility] Region Referral ID Status Reason Start Date Expiration Date V isits Requested Visits Authorized [id number] Authorized 04/24/2023 10/23/2024 1 1 * MRI/CAT/PET Scan (Routine) - Pending Review Specialty Diagnoses / Procedures Referred By Contac t Referred To Contact Radiology Diagnoses Multiple Sclerosis (HCC) Procedures MR Brain without and with IV Contrast Juan Jose Martin M.B., Ch.B. [address] [place] [address] [facility] Region Referral ID Status Reason Start Date Expiration Date V isits Requested Visits Authorized [id number] Pending Review 04/24/2023 04/23/2024 1 1 * Physical Therapy (Routine) - Authorized Specialty Diagnoses / Procedures Referred By David arnold Referred To Contact Diagnoses Multiple Sclerosis (HCC) Procedures PT Evaluate and treat Juan Jose Martin M.B., Ch.B. [address] [place] [phone] [facility] Region Referral ID Status Reason Start Date Expiration Date V isits Requested Visits Authorized [id number] Authorized 04/24/2023 04/23/2024 1 1 Reason for Visit * Reason Comments Multiple Sclerosis fu * Outpatient (Routine) - Closed Specialty Diagnoses / Procedures Referred By David arnold Referred To Contact Neurology Diagnoses Multiple Sclerosis (HCC) Laurence Mujica P.A.-C. [address] [place] [phone] [facility] Referral ID Status Reason Start Date Expiration Date V isits Requested Visits Authorized [id number] Closed Specialty Services Required 07/14/2022 07/14/2023 1 1 Encounter Details Date Type Department Care Team (Late st Contact Info) Description 04/24/2023 9:30 AM CDT Office Visit Department of Neurology in [address] [phone] Juan Jose Martin M.B., Ch.B. [address] [place] [phone] Multiple Sclerosis (HCC) (Primary Dx); Other Optic Atrophy Right Eye; Numbness; Ataxia Sensory; Diabetes Mellitus Type 2 With Diabetic Neuropathy (HCC) Discharge Disposition: Home or Self Care Social History Tobacco Use Types Packs/Day Years Used Date Smoking Tobacco: Light Smoker Smokeless Tobacco: Never Tobacco Cessation:Ready to Q uit: Not Asked; Counseling Given: Not Answered Comments:Smokes more when stressed [facility] Utilities Answer Date Recorded In the past 12 months has th e [employer], gas, oil, or water [employer] threatened to shut off services in your [...] declined 01/25/2022 How often do you attend presyb[employer]ian or mormon serv ices? Never 01/25/2022 Do you belong to any clubs o r organizations such as [employer] groups, unions, fraternal or athletic groups, or [...] medical care, and heating? Very hard 01/25/2022 [facility] - Occupational Stress [...] place to sleep or slept in a [facility] (including now)? 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 - 04/24/2023 9:30 AM CDT SUBJECTIVE Referring Provider: Laurence Mujica P.A.-C. CHIEF COMPLAINT / REASON FOR VISIT Anuradha Muhammad is a 48 y.o. female who presents for evaluation of Consults HISTORY OF PRESENT ILLNESS Anuradha Muhammad is a 48 y.o. female with medical history significant for multiple sclerosis, diabetes, rheumatoid arthritis, Lala thyroiditis, orbital pseudotumor, and right eye blindness postsinus surgery, who presented at the [facility] on 04/24/2023 as a follow-up evaluation with Neurology. Patient was last seen 01/25/2022, since then she has not had any new symptoms concerning for relapse, or progression, of note she was evaluated around 02/19/2023 by Neurology at an outside hospital, on account of worsening spasticity and rigidity, at that time she was admitted after she developed a b lood clot in her bladder after accidental removal of her suprapubic catheter, she did get an MRI ofher neuro axis at that time, which did not show any new lesions, presentation at that time was suggestive of a pseudo exacerbation. Since then she is remained relatively stable, today's evaluation she has no new concerns, she stillcomplains of ongoing numbness, fatigue, and ataxia, has remained relatively unchanged the years, she has no new neurological deficits at this visit. She continues on Tecfidera 240 mg b.i.d.. MRI brain C and T-spine: HEAD MRI: 1. Stable supra and to a lesser degree infratentorial T2 hyperintensities in predominantly periventricular white matter; consistent with patient's known demyelinating disorder. 2. No definite pathological enhancement to suggest an active lesion. 3. No acute infarct, mass, mass effect, or hemorrhage. 4. Mild atrophy. CERVICAL SPINE MRI: 1. Demyelinating lesion left aspect of upper medulla, stable. 2. Subtle lesion at C3-C4 in posterior aspect of the cord, stable. 3. Probable additional subtle lesion at C2-C3, stable. 4. Small lesion left aspect of anterior cord at C6, stable. 5. No definite pathological enhancement to suggest an active lesion. 6. No significant canal or foraminal narrowing at any level. THORACIC SPINE MRI: 1. Small demyelinating lesion within the cord at T1 level, stable. 2. No definite other lesions. 3. No evidence of pathological enhancement. Prior history: Patient initially evaluated by me on 12/28/2020 as a hospital follow-up after she was admitted on 12/17/2020 for suspected MS relapse, her current neurologist is Dr. Alvarado in [place]. Last motor exam in 06/2020 at that time she had normal strength in the upper extremity, with weakness of hip flexion, knee extension, and dorsiflexion. She was recently evaluated by my colleague Dr. Allred on 12/18/2020 when she presented with sudden bilateral lower extremity weakness and numbness, at that admission concern was for possible MS relapse, was initially transferred from [facility] and subsequently IVMP 1000 mg daily for 3 days, she was subsequently discharged on 12/19/2020 when she was back to her baseline. Anuradha MS was diagnosed in ~2000. She first had progressive vision loss in right eye following a sinus surgery. CT of the orbit showed periorbital inflammation. Biopsy revealed nonspecific pathology. She underwent an extensive workup with Rheumatology and Infectious Diseases. 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 As part of work-up MRI brain was done and showed changes suggestive of demyelinating disease. Around that time, she also began to describe Lhermitte phenomenon with numbness in both lower extremities. Last MRI brain in our system was in 12/2014, when enhancing periventricular lesions were seen. Last C and T spine in 08/2014 when C3-4 nonenhancing hyperintensity as well as enhacing hyperintensity at T4-5 were seen. She was treated with different DMTs including Copaxone, Avonex, Tysabri and Lamtrada but did not tolerate them well. She was off DMT for couple years until early 2020 when she was started on Tecfidera by Dr Alvarado in [place]. At baseline, she has tingling and numbness of bilateral hand and feet as well as lower extremity weakness. She uses cane and walker for ambulation. She is independent with regards to her activities of daily living. RTC 10/14/21: Noted steady decline in her strength, she has noted some increased weakness though she has no specific new neurological symptoms, since her last visit she is had several ED visits four lower extremity and back pain. She did describe pain in the bottom of her feet, with shock-like quality making it difficult for her to walk with some subjective increased weakness with this pain. Patient was evaluated in the ED 09/16/2021, and 09/20/2021, she was subsequently admitted on 09/20/2021, and was evaluated by inpatient Neurology on 09/21/2021 MRI c-spine 09/23: Left posterior medulla small nonenhancing lesion redemonstrated from MRI brain 06/04/2021. T1 spinal cord mid posterior aspect small nonenhancing lesion. MRI t-spine: demonstrated multiple small patchy foci of increased T2/STIR signal. The most prominent lesions are noted within the T1 spinal cord and lower thoracic spinal cord including at T11 and T12 levels The patient was started on IV methylprednisone 1000 mg daily x3 days by inpatient neurology team during her 09/20/2021 admission. She was then transition to Medrol Dosepak to be completed in the outpatient (she states she never did the steroid taper). Recommendation made to follow-up with neurology within 1 week of discharge. Imaging: MRI brain with and without 12/18/20: This was compared to 12/16/2014, at least 2 new pericallosal white matter T2 hyperintense lesions with mild enhancement in the right frontal lobe posteriorly, suspicious for active demyelination. Remainder of the pericallosal predominant white matter hyperintensities are relatively stable from 2014. MRI CN T-spine 01/04/2021: The cervical and thoracic spinal cord demonstrate no obvious demyelinative plaques throughout the length of the cord. No contrast enhancing lesions are seen. The plaques that were seen on the prior study of 2014 are not seen on the present study. I have personally reviewed records relevant for this visit. I have directly reviewed imaging studies for this visit. The following portions of the patient's history were reviewed and updated as appropriate: Allergies, current medications, family history, medical history, social history, surgical history and problem list. MEDICAL HISTORY Past Medical History: Diagnosis Date Deficiency Vitamin D Depression Anxiety Diabetes Mellitus Type 2 (HCC) Hypothyroidism Insomnia Lupus Systemic Erythematosus (HCC) Neurogenic Bladder Posttraumatic Stress Disorder Prolonged Rheumatoid Arthritis Without Rheumatoid Factor Unspecified Site (HCC) Thyroiditis Lala's SURGICAL HISTORY Past Surgical History: Procedure Laterality Date CATARACT EXTRACTION CHOLECYSTECTOMY ENDOSCOPIC ETHMOIDECTOMY Right 04/29/2014 Endoscopic ethmoidectomy ESOPHAGOGASTRODUODENOSCOPY N/A 11/26/2003 >Esophagogastroduodenoscopy with Biopsies EXAM UNDER ANESTHESIA, NOSE N/A 04/29/2014 Exam under anesthesia, nose NASAL BIOPSY Right 04/29/2014 Nasal biopsy Notes: orbital mass OTHER CONVERTED SHX (SEE COMMENT) N/A 07/24/2002 >Minor salivary gland lip biopsy. OTHER CONVERTED SHX (SEE COMMENT) N/A 02/28/2001 Endoscopic exploration of the right orbit and frontal sinus. TONSILLECTOMY SOCIAL HISTORY Social History Tobacco Use Smoking status: Light Smoker Smokeless tobacco: Never Tobacco comments: Smokes more when stressed Substance Use Topics Alcohol use: Not on file Social History Substance and Sexual Activity Drug Use Not on file FAMILY HISTORY Family History Problem Relation Age of Onset Heart attack Father Stroke Father Breast cancer Mother Diabetes Mother Seizures Sister Multiple sclerosis Child CURRENT MEDICATIONS Current Outpatient Medications on File Prior to Visit Medication Sig Dispense Refill albuterol 90 mcg/actuation inhaler Inhale 1-2 puffs every 4 (four) hours as needed for wheezing. amantadine (SYMMETREL) 100 mg capsule Take 1 capsule (100 mg total) by mouth 2 (two) times a day. Take 100 mg capsule at 7:00 a.m., and 3:00 p.m. daily 60 capsule 11 ARIPiprazole (ABILIFY) 10 mg tablet Take 10 mg by mouth at bedtime. budesonide-formoteroL (SYMBICORT) 160-4.5 mcg/actuation inhaler Inhale 2 puffs 2 (two) times a day.Rinse mouth with water after use to reduce aftertaste and incidence of candidiasis. Do not swallow. cycloSPORINE (RESTASIS) 0.05 % ophthalmic emulsion Administer 2 drops into both eyes 2 (two) times a day. dulaglutide (Trulicity) 0.75 mg/0.5 mL injection Inject 0.75 mg under the skin every 7 (seven) days. DULoxetine (CYMBALTA) [address] capsule Take 120 mg by mouth daily. EPINEPHrine 0.3 mg/0.3 mL injection syringe Inject 0.3 mg intramuscularly as needed for anaphylaxis. Inject into the thigh. HYDROmorphone (DILAUDID) 2 mg tablet Take 2 mg by mouth 3 (three) times a day. levothyroxine (SYNTHROID, LEVOTHROID) 75 mcg tablet Take 75 mcg by mouth every morning before breakfast. mirtazapine (REMERON) 7.5 mg tablet Take 7.5 mg by mouth at bedtime. omeprazole (PriLOSEC) [address] capsule Take 20 mg by mouth every morning before breakfast. oxyCODONE (ROXICODONE) 10 mg IR tablet Take 10 mg by mouth every 6 (six) hours as needed for pain. [DISCONTINUED] dimethyl fumarate (TECFIDERA) [address] capsule TAKE 1 CAPSULE (240 MG TOTAL) BY MOUTH 2 (TWO) TIMES A DAY. 60 capsule 2 aluminum chloride (DRYSOL) 20 % external solution Apply 1 application topically at bedtime. Apply topically to affected areas at bedtime. insulin glargine 100 unit/mL (3 mL) injection Inject 20 Units under the skin at bedtime. nicotine (NICODERM CQ) 21 mg/[address] 1 patch on the skin daily. nystatin (NYSTOP) 100,000 unit/gram powder Apply 1 application topically 2 (two) times a day as needed. Apply to affected area No current facility-administered medications on file prior to visit. REVIEW OF SYSTEMS Ten-point review of systems completed; pertinent positives noted in HPI. REVIEW OF SYSTEMS OBJECTIVE I have reviewed vital signs as recorded in the EPIC record. PHYSICAL EXAMINATION Physical Exam General: Well-developed, no acute distress. Head: Normocephalic, atraumatic. ENT: Mucous membranes pink and moist. Respiratory: Breathing non-labored. Cardiovascular: Regular rate and rhythm. Abdomen: Soft, nontender. Musculoskeletal: No cyanosis or edema appreciated. Psychiatric: Does not appear anxious. Dermatologic: Skin warm and dry. Mental Status: Memory: Intact immediate short and long-term memory. Attention/Concentration: Intact attention on bedside test. Fund of knowledge: Intact Orientation: Person, place and time. Language: Normal fluency, comprehension, repetition. Speech: Is fluent, no dysarthria. Cranial Nerves: Pupils: OD 4 mm to 2 mm; OS 4 mm to 2 mm (no RAPD). Visual Landrum: (R) visual field full to confrontation; (L) visual field full to confrontation. Optic Discs: (R/L) disc appears normal; no heme. CN III: CN IV, CN (Extraocular movements): extraocular eye movements intact. CN V: Normal pin and touch sensation in all three divisions of the trigeminal nerves, bilaterally. CN VII: Normal facial muscle strength bilaterally. CN VIII: Auditory acuity intact to bedside testing. CN IX/CN X: Normal palate elevation. CN XI: Normal strength of trapezius and SCM muscles, bilaterally. CN XII: Tongue protrudes in the midline. No atrophy or fasciculations. Motor Exam (MRC scale): Muscle Bulk: No atrophy or fasciculations. Muscle Tone: Physiologic tone in upper and lower extremities. Involuntary movements: None. Strength (MRC scale): D B T WE GRP HF HE KF KE DF PF R 5 5 5 5 5 4+ 4+ 5- 5 5- 5 L 5 5 5 5 5 4+ 4+ 5- 5 5- 5 Reflexes (NINDS scale): Right Left Biceps 2 2 Triceps 2 2 Brachioradialis 2 2 Patella 3 3 Ankle 2 2 January + + Sensory: Loss of sensation up to groin all 4 modalities. Coordination: Normal rapid alternating movements without dysmetria. Romberg: Positive Romberg. Gait: Difficulty standing up on account of weak hip flexors and extensor muscle, unstable wide based steppage gait. DIAGNOSTICS I have reviewed relevant laboratory, imaging, and other diagnostics as applicable to this consult. Radiology: MR Brain w/wo contrast Result Date: 02/19/2023 For Patients: As a result of the 21st Century Cures Act, medical imaging exams and procedure reports are released immediately into your electronic medical record. You may view this report before yourreferring provider. If you have questions, please contact your health care provider. EXAM: MR SPINETHORACIC WWO, MR HEAD BRAIN WWO, MR SPINE CERVICAL WWO LOCATION: [facility] DATE: 02/19/2023 INDICATION: Multiple sclerosis (MS) COMPARISON: MRI head 05/18/2021, MRI cervical and thoracic spine 09/23/2021 CONTRAST: 10 mL of Gadavist TECHNIQUE: 1) Routine multiplanar multisequence head MRI without and with intravenous contrast. 2) Routine Cervical Spine MRI without and with IV contrast. 3)Routine Thoracic Spine MRI without and with IV contrast. FINDINGS: HEAD MRI: INTRACRANIAL CONTENTS:No acute or subacute infarct. No mass, acute hemorrhage, or extra-axial fluid collections. Stable supra and to a lesser degree infratentorial T2 hyperintensities in predominantly periventricular white matter; consistent with patient's known demyelinating disorder. No definite pathological enhancement to suggest an active lesion. Mild generalized cerebral atrophy. No hydrocephalus. Normal positionof the cerebellar tonsils. No pathologic enhancement. SELLA: No abnormality accounting for technique. OSSEOUS STRUCTURES/SOFT TISSUES: Normal marrow signal. The major intracranial vascular flow voidsare maintained. ORBITS: No abnormality accounting for technique. SINUSES/MASTOIDS: Opacification the right aspect of frontal sinus and anterior aspect of right ethmoid air cells. No middle ear or mastoid effusion. CERVICAL SPINE: Demyelinating lesion left aspect of upper medulla, stable. Subtle lesion at C3-C4 in posterior aspect of the cord, stable. Probable additional subtle lesion at C2-C3, stable. Small lesion left aspect of anterior cord at C6, stable. No definite pathological enhancement to suggest an active lesion. No extraspinal abnormality. Craniovertebral junction and C1-C2: Normal.C2-C3: Normal disc height. No herniation. Normal facets. No spinal canal or neural foraminal stenosis. C3-C4: Normal disc height. No herniation. Normal facets. No spinal canal or neural foraminal stenosis. C4-C5: Normal disc height. Mild uncovertebral joint hypertrophy and facet arthropathy. No significant canal or foraminal narrowing. C5-C6: Normal disc height. Mild uncovertebral joint hypertrophy and facet arthropathy. No significant canal or foraminal narrowing. C6-C7: Normal disc height. Mild uncovertebral joint hypertrophy and facet arthropathy. No significant canal or foraminal narrowing. C7-T1: Normal disc height. No herniation. Normal facets. No spinal canal or neural foraminal steno sis. THORACIC SPINE: Normal vertebral body heights, alignment and marrow signal. Redemonstration ofmultiple chronic depressions of endplates throughout thoracic spine. Normal facets. Small demyelinating lesion within the cord at T1 level, stable. No definite other lesions. No evidence of pathological enhancement. No extraspinal abnormality. HEAD MRI: 1. Stable supra and to a lesser degree infratentorial T2 hyperintensities in predominantly periventricular white matter; consistent with patient's known demyelinating disorder. 2. No definite pathological enhancement to suggest an active lesion. 3. No acute infarct, mass, mass effect, or h emorrhage. 4. Mild atrophy. CERVICAL SPINE MRI: 1. Demyelinating lesion left aspect of upper medulla, stable. 2. Subtle lesion at C3-C4 in posterior aspect of the cord, stable. 3. Probable additionalsubtle lesion at C2-C3, stable. 4. Small lesion left aspect of anterior cord at C6, stable. 5. No definite pathological enhancement to suggest an active lesion. 6. No significant canal or foraminal narrowing at any level. THORACIC SPINE MRI: 1. Small demyelinating lesion within the cord at T1 level, stable. 2. No definite other lesions. 3. No evidence of pathological enhancement. MR SPINE CERVICAL WWO Result Date: 02/19/2023 For Patients: As a result of the Cures Act, medical imaging exams and procedure reports are released immediately into your electronic medical record. You may view this report before yourreferring provider. If you have questions, please contact your health care provider. EXAM: MR SPINETHORACIC WWO, MR HEAD BRAIN WWO, MR SPINE CERVICAL WWO LOCATION: [facility] DATE: 02/19/2023 INDICATION: Multiple sclerosis (MS) COMPARISON: MRI head 05/18/2021, MRI cervical and thoracic spine 09/23/2021 CONTRAST: 10 mL of Gadavist TECHNIQUE: 1) Routine multiplanar multisequence head MRI without and with intravenous contrast. 2) Routine Cervical Spine MRI without and with IV contrast. 3)Routine Thoracic Spine MRI without and with IV contrast. FINDINGS: HEAD MRI: INTRACRANIAL CONTENTS:No acute or subacute infarct. No mass, acute hemorrhage, or extra-axial fluid collections. Stable supra and to a lesser degree infratentorial T2 hyperintensities in predominantly periventricular white matter; consistent with patient's known demyelinating disorder. No definite pathological enhancement to suggest an active lesion. Mild generalized cerebral atrophy. No hydrocephalus. Normal positionof the cerebellar tonsils. No pathologic enhancement. SELLA: No abnormality accounting for technique. OSSEOUS STRUCTURES/SOFT TISSUES: Normal marrow signal. The major intracranial vascular flow voidsare maintained. ORBITS: No abnormality accounting for technique. SINUSES/MASTOIDS: Opacification the right aspect of frontal sinus and anterior aspect of right ethmoid air cells. No middle ear or mastoid effusion. CERVICAL SPINE: Demyelinating lesion left aspect of upper medulla, stable. Subtle lesion at C3-C4 in posterior aspect of the cord, stable. Probable additional subtle lesion at C2-C3, stable. Small lesion left aspect of anterior cord at C6, stable. No definite pathological enhancement to suggest an active lesion. No extraspinal abnormality. Craniovertebral junction and C1-C2: Normal.C2-C3: Normal disc height. No herniation. Normal facets. No spinal canal or neural foraminal stenosis. C3-C4: Normal disc height. No herniation. Normal facets. No spinal canal or neural foraminal stenosis. C4-C5: Normal disc height. Mild uncovertebral joint hypertrophy and facet arthropathy. No significant canal or foraminal narrowing. C5-C6: Normal disc height. Mild uncovertebral joint hypertrophy and facet arthropathy. No significant canal or foraminal narrowing. C6-C7: Normal disc height. Mild uncovertebral joint hypertrophy and facet arthropathy. No significant canal or foraminal narrowing. C7-T1: Normal disc height. No herniation. Normal facets. No spinal canal or neural foraminal steno sis. THORACIC SPINE: Normal vertebral body heights, alignment and marrow signal. Redemonstration ofmultiple chronic depressions of endplates throughout thoracic spine. Normal facets. Small demyelinating lesion within the cord at T1 level, stable. No definite other lesions. No evidence of pathological enhancement. No extraspinal abnormality. HEAD MRI: 1. Stable supra and to a lesser degree infratentorial T2 hyperintensities in predominantly periventricular white matter; consistent with patient's known demyelinating disorder. 2. No definite pathological enhancement to suggest an active lesion. 3. No acute infarct, mass, mass effect, or h emorrhage. 4. Mild atrophy. CERVICAL SPINE MRI: 1. Demyelinating lesion left aspect of upper medulla, stable. 2. Subtle lesion at C3-C4 in posterior aspect of the cord, stable. 3. Probable additionalsubtle lesion at C2-C3, stable. 4. Small lesion left aspect of anterior cord at C6, stable. 5. No definite pathological enhancement to suggest an active lesion. 6. No significant canal or foraminal narrowing at any level. THORACIC SPINE MRI: 1. Small demyelinating lesion within the cord at T1 level, stable. 2. No definite other lesions. 3. No evidence of pathological enhancement. MR Spine Thoracic w/wo Contrast Result Date: 02/19/2023 For Patients: As a result of the Century Cures Act, medical imaging exams and procedure reports are released immediately into your electronic medical record. You may view this report before yourreferring provider. If you have questions, please contact your health care provider. EXAM: MR SPINETHORACIC WWO, MR HEAD BRAIN WWO, MR SPINE CERVICAL WWO LOCATION: [facility] DATE: 02/19/2023 INDICATION: Multiple sclerosis (MS) COMPARISON: MRI head 05/18/2021, MRI cervical and thoracic spine 09/23/2021 CONTRAST: 10 mL of Gadavist TECHNIQUE: 1) Routine multiplanar multisequence head MRI without and with intravenous contrast. 2) Routine Cervical Spine MRI without and with IV contrast. 3)Routine Thoracic Spine MRI without and with IV contrast. FINDINGS: HEAD MRI: INTRACRANIAL CONTENTS:No acute or subacute infarct. No mass, acute hemorrhage, or extra-axial fluid collections. Stable supra and to a lesser degree infratentorial T2 hyperintensities in predominantly periventricular white matter; consistent with patient's known demyelinating disorder. No definite pathological enhancement to suggest an active lesion. Mild generalized cerebral atrophy. No hydrocephalus. Normal positionof the cerebellar tonsils. No pathologic enhancement. SELLA: No abnormality accounting for technique. OSSEOUS STRUCTURES/SOFT TISSUES: Normal marrow signal. The major intracranial vascular flow voidsare maintained. ORBITS: No abnormality accounting for technique. SINUSES/MASTOIDS: Opacification the right aspect of frontal sinus and anterior aspect of right ethmoid air cells. No middle ear or mastoid effusion. CERVICAL SPINE: Demyelinating lesion left aspect of upper medulla, stable. Subtle lesion at C3-C4 in posterior aspect of the cord, stable. Probable additional subtle lesion at C2-C3, stable. Small lesion left aspect of anterior cord at C6, stable. No definite pathological enhancement to suggest an active lesion. No extraspinal abnormality. Craniovertebral junction and C1-C2: Normal.C2-C3: Normal disc height. No herniation. Normal facets. No spinal canal or neural foraminal stenosis. C3-C4: Normal disc height. No herniation. Normal facets. No spinal canal or neural foraminal stenosis. C4-C5: Normal disc height. Mild uncovertebral joint hypertrophy and facet arthropathy. No significant canal or foraminal narrowing. C5-C6: Normal disc height. Mild uncovertebral joint hypertrophy and facet arthropathy. No significant canal or foraminal narrowing. C6-C7: Normal disc height. Mild uncovertebral joint hypertrophy and facet arthropathy. No significant canal or foraminal narrowing. C7-T1: Normal disc height. No herniation. Normal facets. No spinal canal or neural foraminal steno sis. THORACIC SPINE: Normal vertebral body heights, alignment and marrow signal. Redemonstration ofmultiple chronic depressions of endplates throughout thoracic spine. Normal facets. Small demyelinating lesion within the cord at T1 level, stable. No definite other lesions. No evidence of pathological enhancement. No extraspinal abnormality. HEAD MRI: 1. Stable supra and to a lesser degree infratentorial T2 hyperintensities in predominantly periventricular white matter; consistent with patient's known demyelinating disorder. 2. No definite pathological enhancement to suggest an active lesion. 3. No acute infarct, mass, mass effect, or h emorrhage. 4. Mild atrophy. CERVICAL SPINE MRI: 1. Demyelinating lesion left aspect of upper medulla, stable. 2. Subtle lesion at C3-C4 in posterior aspect of the cord, stable. 3. Probable additionalsubtle lesion at C2-C3, stable. 4. Small lesion left aspect of anterior cord at C6, stable. 5. No definite pathological enhancement to suggest an active lesion. 6. No significant canal or foraminal narrowing at any level. THORACIC SPINE MRI: 1. Small demyelinating lesion within the cord at T1 level, stable. 2. No definite other lesions. 3. No evidence of pathological enhancement. ECHO TRANSTHORACIC COMPLETE Result Date: 02/16/2023 ECHOCARDIOGRAM ANURADHA MUHAMMAD : 1975 48 years Study Date: 02/16/2023 11:35:54 AM Gender: F BP: 125/82 mmHg Height: 173.00 cm BSA: 2.04 m? Weight: 90.00kg Tech: CLAUDIA Referring MD: SMITHA REDMAN Site: [facility] ReadingLocation: [place] Patient Location: Inpatient. Procedure: 2D, Color Doppler and Spectral Doppler. Indication for study: Chest Pain/ Presure Cardiac Rhythm: SR and Sinus Tach.Study quality: Technically limited. Imaging limitations: This study was subject to imaging limitations due to lying in a supine position and suboptimal images from the apical and subcostal windows. Final Impressions: 1. Technically limited exam. 2. Normal left ventricular size, mildly increased wall thickness, normal global systolic function, calculated EF of 65 %. 3. Right ventricular cavity size is normal, global systolic RV function is normal. 4. Normal left atrium size. 5. The aortic valve is normal, no stenosisand trivial regurgitation. 6. The mitral valve is normal, trace mitral regurgitation. 7. Tricuspid valve is not well visualized. 8. The ascending aorta is dilated with a maximal diameter of 3.8 cm. 9. Normal estimated pulmonary pressures by tricuspid regurgitation velocity and right atrial pressure(16 mmHg plus RAP). 10. No pericardial effusion. Chamber Sizes and Function Normal left ventricular size, mildly increased wall thickness, normal global systolic function, calculated EF of 65 %. Leftatrial size is normal. Right ventricular cavity size is normal, global systolic RV function is normal. The right atrium is normal. Right atrial area is 11 cm?. The pulmonary artery is not well visualized. The sinus of Valsalva is normal sized. The ascending aorta is dilated. Valves, RV Pressuresand Diastolic Function The aortic valve is normal in structure, no stenosis and trivial regurgitation. The mitral valve is normal in structure, trace mitral regurgitation. Normal diastolic function. The tricuspid valve is not well visualized. Tricuspid regurgitation is trace regurgitation. The tricu spid regurgitant velocity is 2.0 m/s, the estimated right ventricular systolic pressure is 16 mmHg plus right atrial pressure. There is normal estimated pulmonary pressure by tricuspid regurgitation velocity and right atrial pressure. The pulmonic valve is not well visualized. Trace pulmonary regurg itation. Masses, Effusion, Shunts There is no pericardial effusion. The inferior vena cava is normal sized, respiratory size variation greater than 50%. Interatrial septum is not well visualized. MEASUREMENTS AND CALCULATIONS 2-D Measurements and LV Function: LVID (d) 4.0 cm Planimetered EF 65 % LVID (s) 2.5 cm LV FS% (2D) 37 % IVS (d) 1.2 cm LVOT diameter 2.2 cm LVPW (d) 1.1 cm HR 98 bpm Ao Sinus 3.3 cm LA Vol index 12 ml/m2 Asc Ao 3.8 cm RA area 11 cm? LA 3.6 cm RV Max 4C (d) 3.0 cm Diastology: Mitral Tissue Doppler E Peak 0.6 m/s e', Septum 0.08 m/s A Peak 0.9 m/s e', Lateral 0.09 m/s E/A 0.7 E/e' Average 7.42 DT 155 msec Aortic Valve: Vmax 1.1 m/s BONY (V) 3.39 cm? VTI 0.13 m BONY (I) 3.71 cm? LVOT V max 1.0 m/s Max PG 5 mmHg LVOT VTI 0.13 m Mean PG 2 mmHg SV 49 ml Dim Index 0.96 SV index 24 ml/m? CO 4.8 l/min AV Ejection Time 0.19 sec CI 2.4 l/min/m? AV Flow Rate 259 ml/s Mitral Valve: MVA 4.9 cm? MV P 1/2 45 msec MV Mean G 2 mmHg MV VTI 0.15 m Tricuspid Valve and estimated PA pressures: TR Vmax 2.0 m/s TAPSE 1.8 cm TR maxG 16 mmHg . This study was interpreted by an [facility] accredited facility. CC: Laurence Mujica. Final CT ABDOMEN PELVIS UROGRAM WWO Result Date: 02/15/2023 For Patients: As a result of the Cures Act, medical imaging exams and procedure reports are released immediately into your electronic medical record. You may view this report before yourreferring provider. If you have questions, please contact your health care provider. INDICATION: Hematuria. TECHNIQUE: CT abdomen and pelvis urogram without and with 100 cc Omnipaque 350 IV contrast.Contrast images were obtained utilizing a split bolus technique COMPARISON: CT abdomen pelvis 12/14/2022. FINDINGS: Lower Chest: No focal consolidation. No pleural effusions or pneumothorax. Normal heart size. Kidneys/Ureters: No obstructive urinary calculus. The kidneys are normal in size and enhance symmetrically. No renal masses identified. No hydroureteronephrosis. No abnormal filling defectswithin the collecting system and ureters. Urinary Bladder: The urinary bladder is distended by large heterogeneous bladder mass with internal foci of air. There is a suprapubic catheter with tip traversing through this heterogeneous mass. Trace amount of layering contrast material. Into depending gas within the bladder lumen likely postprocedural. Liver: Normal. Gallbladder/Biliary: Cholecystectomy. No biliary ductal dilitation. Pancreas: Normal. Spleen: Normal. Adrenal Glands: Normal. Bowel: No obstruction or bowel wall thickening. Moderate colonic stool run. Normal appendix. Pelvic organs: Hysterectomy. Peritoneum: No free fluid or pneumoperitoneum. Vessels: No aneurysm. Portal vein remains patent. Mild atherosclerotic calcifications. Lymph Nodes: No pathologic lymphadenopathy by size criteria. Abdominal Wall/Soft Tissues: Unremarkable. Bones: Unremarkable. The bladder is distended by a large heterogeneous soft tissue/fluid attenuating mass, likely representing a large hemorrhagic blood clot, new since the recent CT from 12/14/2022. Underlying neoplasm cannot be excluded. If clinically warranted, consider further evaluation with cystoscopy. Please note that all CT scans at this facility use dose modulation, iterative reconstruction, and/or weight-based dosing when appropriate to reduce radiation dose to as low as reasonably achievable. Dictated byStuart Souza MD @ 02/15/2023 7:57:35 PM (Electronically Signed) IR PERCUTANEOUS TUBE PLACEMENT Result Date: 02/15/2023 PROCEDURES: Replacement of suprapubic urinary bladder catheter via sonographic and fluoroscopic guidance from a percutaneous approach. INDICATION: Multiple sclerosis complicated by urinary retention status post suprapubic catheter placement. Now presents after accidental dislodgment of suprapubic catheter earlier this week. Patient has had multiple occurrences of accidental dislodgment requiring new access placements with moderate sedation (prior tracts had closed and were unable to be recanalized). INTERVENTIONAL RADIOLOGIST: Chandler Cosby MD MEDICATIONS: 1. 2% Nesacaine SQ 2. Versed 6 mg IV. 3. Dilaudid 1 mg IV. 4. Ancef 2 gm IV. CONTRAST: 20 mL of contrast. COMPLICATIONS: None immediate. ESTIMATED BLOOD LOSS: Less than 10 mL. FLUORO TIME: 1.2 minute. EXPOSURE: 35 mGy SPECIMENS: None. TECHNIQUE: The patient was seen and examined in the pre-procedure room. A discussion was held regardingthe risks, benefits and alternative therapies to the procedure. A written informed consent was obtai ben. The patient was then transferred to the Interventional Radiology suite and placed supine on the fluoroscopy table. The existing Peng catheter was connected to a bag of containing saline with a small amount of contrast. 500 cc were infused by gravity slowly until adequate distention was seen under real- time sonographic imaging of the suprapubic region. The suprapubic region at the site of the prior catheter was draped in the usual sterile fashion. A time-out was performed to verify correctpatient and procedure. The patient was monitored at all times by the interventional radiology nurse. Moderate sedation was administered. 2% Nesacaine was administered into the skin and subcutaneous soft tissues. Multiple attempts were made to recanalize the tract with an angled catheter and wire, which were unable to be advanced into the bladder. Decision was made then to perform sharp recanalization. A 21-gauge trocar needle was then advanced through the tract and into the urinary bladder. A small amount of contrast was injected, confirming position. The guidewire was inserted into the urinary bladder and was curled inside the urinary bladder. The trocar needle was removed and sequential dilatation was performed of the tract to 20 [place] Then, a 16-[place] Peng catheter was inserted overthe wire into the urinary bladder where the balloon was inflated under fluoroscopic guidance. The balloon was then gently retracted to the anterior bladder wall. The suprapubic Peng catheter was then connected to a gravity drainage bag. The patient tolerated the procedure well. Ultrasound and fluoroscopy were used intermittently throughout the procedure. 1. Successful sharp recanalization of suprapubic catheter tract with placement of 16 [place] suprapubic Peng catheter. Please contact me with any questions. Chandler Cosby MD Vascular & Interventional Radiology at [facility] [phone] Pager: [phone] [email or web address] ASSESSMENT / PLAN Impression: Multiple sclerosis with recent relapse. 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 Diabetes mellitus type 2 Discussion: Anuradha presents as a follow up evaluation for multiple sclerosis, Patient was last seen 01/25/2022, since then she has not had any new symptoms concerning for relapse, or progression, of note she was evaluated around 02/19/2023 by Neurology at an outside hospital, on account of worsening spasticity and rigidity, at that time she was admitted after she developed a blood clot in her bladder after accidental removal of her suprapubic catheter, she did get an MRI of her neuro axis at that time, which did not show any new lesions, presentation at that time was suggestive of a pseudo exacerbation. Since then she is remained relatively stable, today's evaluation she has no new concerns, she stillcomplains of ongoing numbness, fatigue, and ataxia, has remained relatively unchanged the years, she has no new neurological deficits at this visit. She continues on Tecfidera 240 mg b.i.d.. Recommendations: Given that patient has remained stable on Tecfidera, with no evidence of progression, would recommend that she stays on medication for now, with no changes, she does complain of some progressive weakness, hence would recommend PT evaluation and treatment, we also started amantadine, for neuro fatigue, she has not noted in his significant improvement with the medication. Would continue for now, but if she still does not notice any improvement, would consider stopping at a future date. Plan: MRI brain w/wo in 1 year Continue Tecfidera 240 mg twice a day. Continue amantadine 100 mg a.m., 100 mg afternoon daily PT evaluation and treatment. Follow-up in 1 year. Patient Active Problem List Diagnosis Demyelinating Disease Central Nervous System (HCC) Multiple Sclerosis (HCC) Ataxia Sensory Weakness Leg Numbness Time spent: 55 minutes this include both face to face and non [id number] time, of this about 15 minutes or so were spent in education, counseling and coordinating future care across multiple specialties. The decision-making was highly complex. Advance Care Planning full code on file Advance directives were discussed and material provided. Advance Care Planning Health Care Power of Certified Rehabilitation Counselor: [ Not available ] Neurological Prognosis: [ Fair - MS with ataxia at baseline causing difficulty with ambulation, butpatient has remained stable, with no evidence progression ] Patient Personal Goals and Understanding of Illness: [ Good ] [ACP Free Text] PATIENT EDUCATION: Ready to learn; learning preferences include listening. Explained diagnosis and treatment plan; patient expressed some understanding of the content. Taiwo Espino, Ch.B. Board Certified Neurologist Neuro-Life [employer] 04/24/23 11:22 AM CDT documented in this encounter Plan of Treatment Scheduled Orders Name Type Priority Associated Diagnoses Orde r Schedule MR Brain without and with IV Contrast Imaging RAD - Routine (most inpatients and all outpatients) Multiple Sclerosis (HCC) Expected: 04/23/2024, Expires: 07/24/2024 Scheduled Referrals Name Type Priority Associated Diagnoses Orde r Schedule Neurology office visit (clinic) Outpatient Referral Routine Expected: 04/23/2024 (Approximate), Expires: 07/24/2024 documented as of this encounter Visit Diagnoses Diagnosis Multiple Sclerosis (HCC)- Primary Other Optic Atrophy Right Eye Numbness Ataxia Sensory Diabetes Mellitus Type 2 With Diabetic Neuropathy (HCC) documented in this encounter Care Teams Hardware Installer Relationship Specialty Start Date End Date Elsewhere, Pcp PCP - General Family Medicine 12/19/20 documented as of this encounter
--- OUTSIDE RECORDS SUMMARY | 2023-07-11 10:39 | XMS_ITS | Encounter Summary ---
Author Organization [facility] Address [address] [place] [address] Care Team Providers Care Credit Risk Modeler Name Role Phone Elsewhere, Pcp Primary Care Provider Unavailabl e Encounter Details Date Type Department Care Team (Late st Contact Info) Description 12/15/2014 Historical Ophthalmology RST OPH Adolph De Santiago M.D., Ph.D. [address] [place] [address] Social History Tobacco Use Types Packs/Day Years Used Date Smoking Tobacco: Never Assessed Sex and Gender Information Value Date Recorded Sex Assigned at Female 01/25/2022 2:30 PM SR. OPERATIONS MANAGER Gender Identity Female 01/25/2022 2:30 PM SR. OPERATIONS MANAGER Sexual Orientation Straight 01/25/2022 2: 30 PM SR. OPERATIONS MANAGER documented as of this encounter Progress Notes * Adolph De Santiago M.D., Ph.D. - 12/15/2014 12:51 PM CST Eye General CHIEF COMPLAINT My right eye jackson and is painful to the touch. HISTORY OF PRESENT ILLNESS Patient has been having the gritty feeling with burning and swelling in her right eye, which started 12/13/2014. Patient says that the last two days the right side of her face has been numb. Patient feels she is having a flareup. Patient is very sensitive to light. Patients pain level is currently 8/10. She feels a lot of pressure around the right eye for the past 2 days. Pain worse with eye movements. She also reports numbness of the right side of her face. She feels her MS is flaring up as well because she finds it is harder to walk and move. She also has burning of her skin. Also more blurred vision in the left eye. 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 New onset of periorbital pain, worse with eye movements. This could be recurrence of orbital inflammation or possibly even optic neuritis given her hx of MS. Repeat MRI orbit. Addendum on 12/16/14: MRI orbit showed no orbital inflammation or optic nerve enhancement. There was mucosal thickening of the right frontal sinus, which was mildly increased from August 2014. There were 3 new periventricular plaques with active enhancement, along the body of the left lateral ventricle anteriorly, and along the atria of both lateral ventricles. She is still not on Tecfidera because she did not feel she had multiple sclerosis. However, with the new MRI showing more lesions, she is more receptive to the idea. I will reconsult Neurology. I will also consult ENT to see if the sinus enhancement could be sinusitis vs postsurgical. If sinusitis, this could be contributing to her right periorbital pain. 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 OPERATIONS MANAGER documented as of this encounter Care Teams Credit Risk Modeler Relationship Specialty Start Date End Date Elsewhere, Pcp PCP - General Family Medicine 12/19/20 documented as of this encounter
--- OUTSIDE RECORDS SUMMARY | 2023-07-11 10:39 | XMS_ITS | Encounter Summary ---
Author Organization [facility] Address [address] [place] [address] Care Team Providers Care Coffee Maker Servicer Name Role Phone Elsewhere, Pcp Primary Care Provider Unavailabl e Encounter Details Date Type Department Care Team (Late st Contact Info) Description 07/20/2006 Historical Ophthalmology RST OPH Roddy Palmer M.D. [address] [place] [id number] Social History Tobacco Use Types Packs/Day Years Used Date Smoking Tobacco: Never Assessed Sex and Gender Information Value Date Recorded Sex Assigned at Female 01/25/2022 2:30 PM TRAVEL PT Gender Identity Female 01/25/2022 2:30 PM TRAVEL PT Sexual Orientation Straight 01/25/2022 2: 30 PM TRAVEL PT documented as of this encounter Progress Notes * Roddy Palmer M.D. - 07/20/2006 8:14 AM CDT Eye General CHIEF COMPLAINT blurred and foggy vision left eye HISTORY OF PRESENT ILLNESS 31 year old female here today for an evaluation for pars planitis left eye. Patient notes her vision in her left eye started to blur and fog after cataract surgery in ?2005. Constant pain in the right eye since sinus surgery in 2000. Intermittent pain in the left eye. Constant floaters in the left eye x many years and no recent changes to them. Occasional flashes of light in the right eye, no changes since last visit. GJG: Has acute episodes of blackout in the vision in her left eye. When she blinks it goes away in a couple of seconds, but the vision remains slightly blurry. She has a number of neurologic complaints well documented in the medical record. She has constant pain in both eyes - feels like a migraine TONY. She also has dry eyes -- leading to watering. She has both flashes and floaters (years). Episodes of flashes constantly since her sinus surgery in 2000. IMPRESSION / REPORT / PLAN #1 Optic atrophy R #2 Uveitis; left #3 Pseudophakia; left #4 Unexplained visual changes, left eye. I cannot discern at this time the reasons for her visual changes, especially those lasting seconds with complete visual loss. Although there are changes of previsous ocular inflammation, there is no active inflammation at this time. I suggest the following to rule out possible causes of visual loss. First, a visual field at 1 meter, and then at 2 meters if abnormal. After reviewing the sellers will decide upon imaging to determine whether there is an intracranial process. Discussed with patient, she agrees to this approach. DIAGNOSIS #1 Optic atrophy R #2 Uveitis; left #3 Pseudophakia; left #4 Unexplained visual changes, left eye. CD Reports - [facility] Id: [id number] Status: Fnl documented in this encounter Plan of Treatment Not on file documented as of this encounter Visit Diagnoses Not on filedocumented in this encounter Additional Health Concerns Infection Onset Date Last Indicated Resolved Time COVID19 Pending 12/17/2020 12/17/2020 01/06/2021 4 :54 AM TRAVEL PT documented as of this encounter Care Teams Coffee Maker Servicer Relationship Specialty Start Date End Date Elsewhere, Pcp PCP - General Family Medicine 12/19/20 documented as of this encounter
--- OUTSIDE RECORDS SUMMARY | 2023-07-11 10:39 | XMS_ITS | Encounter Summary ---
Author Organization [facility] Address [address] [place] [address] Care Team Providers Care Adzing And Boring Machine Feeder Name Role Phone Elsewhere, Pcp Primary Care Provider Unavailabl e Encounter Details Date Type Department Care Team (Late st Contact Info) Description 03/11/2002 Historical Ophthalmology RST OPH Carlos Zendejas M.D. [address], [place] [address] Social History Tobacco Use Types Packs/Day Years Used Date Smoking Tobacco: Never Assessed Sex and Gender Information Value Date Recorded Sex Assigned at Female 01/25/2022 2:30 PM PROFESSOR OF PHYSICS Gender Identity Female 01/25/2022 2:30 PM PROFESSOR OF PHYSICS Sexual Orientation Straight 01/25/2022 2: 30 PM PROFESSOR OF PHYSICS documented as of this encounter Progress Notes * Carlos Zendejas M.D. - 03/11/2002 12:00 AM CST Eye General CHIEF COMPLAINT floater OS HISTORY OF PRESENT ILLNESS Patient reports today with constant floater OS for 2 month. 2 black dots. Thinks vision more blurrysince then. No flashes. History of constant migraines since age 12. Patient feels they are getting worse. Doesn't drive anymore, gets up usually around 2:00 p.m., she is unsure about the black outsthat she used to have. Blind OD after sinus surgery 05-08-00. She states that she is seeking legal action for this. 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 #2 Pars planitis, stable os #3 PSC Cataract os, stable #4 Refractive error - don't think vision has changed but will get refraction #5 Sensory XT od rechek prn CDM Reports - EYEGEN Id: [id number] Status: Fnl documented in this encounter Plan of Treatment Not on file documented as of this encounter Visit Diagnoses Not on filedocumented in this encounter Additional Health Concerns Infection Onset Date Last Indicated Resolved Time COVID19 Pending 12/17/2020 12/17/2020 01/06/2021 4 :54 AM PROFESSOR OF PHYSICS documented as of this encounter Care Teams Adzing And Boring Machine Feeder Relationship Specialty Start Date End Date Elsewhere, Pcp PCP - General Family Medicine 12/19/20 documented as of this encounter
--- OUTSIDE RECORDS SUMMARY | 2023-07-11 10:39 | XMS_ITS | Encounter Summary ---
Author Organization [facility] Address [address] [place] [address] Care Team Providers Care President Financial Institution Name Role Phone Elsewhere, Pcp Primary Care Provider Unavailabl e Encounter Details Date Type Department Care Team (Late st Contact Info) Description 03/25/2015 Historical Ophthalmology RST OPH Jocelin Scott M.D. Social History Tobacco Use Types Packs/Day Years Used Date Smoking Tobacco: Never Assessed Sex and Gender Information Value Date Recorded Sex Assigned at Female 01/25/2022 2:30 PM SNAG GRINDER Gender Identity Female 01/25/2022 2:30 PM SNAG GRINDER Sexual Orientation Straight 01/25/2022 2: 30 PM SNAG GRINDER documented as of this encounter Progress Notes * Jocelin Scott M.D. - 03/25/2015 9:20 PM CST Eye General CHIEF COMPLAINT Pressure behind eye HISTORY OF PRESENT ILLNESS 3 days ago she noted pain in her R forehead. the entire right side is numb and tingling. She endorses pain on EOM and refuses to do this part of the exam. She is not taking any medication for MS. It appears that she has previously opted not to seek this treatment. 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 Also new onset of R sided numbness and tingling. This could be recurrence of orbital inflammation or MS exacerbation. This similar to her lastMS exacerbation sx. Would Repeat MRI orbit which is scheduled for tomorrow. Would recommend that she keep her appointment with Dr. De Santiago No evidence of optic neuritis in the L eye on exam or by history given lack of sx in this eye. The concern would be for optic neuritis in the R eye. It is the case that IV steroids for optic neuritisdo not improve outcome but only decrease length of symptoms. Would wait for MRI prior to treatment and appointment with Dr. De Santiago. She is having new systemic symptoms. Neurology is coming to evalute her for systemic symptoms for MS exacerbation. 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
--- OUTSIDE RECORDS SUMMARY | 2023-07-11 10:39 | XMS_ITS | Encounter Summary ---
Author Organization [facility] Address [address] [place] [address] Care Team Providers Care Store Deli Manager Name Role Phone Elsewhere, Pcp Primary Care Provider Unavailabl e Encounter Details Date Type Department Care Team (Late st Contact Info) Description 04/29/2014 Historical Ophthalmology RST OPH Gracie Marroquin M.D. [address] [place] [address] Social History Tobacco Use Types Packs/Day Years Used Date Smoking Tobacco: Never Assessed Sex and Gender Information Value Date Recorded Sex Assigned at Female 01/25/2022 2:30 PM RE EXAMINER Gender Identity Female 01/25/2022 2:30 PM RE EXAMINER Sexual Orientation Straight 01/25/2022 2: 30 PM RE EXAMINER documented as of this encounter Progress Notes * Gracie Marroquin M.D. - 04/29/2014 12:21 PM CDT Eye General CHIEF COMPLAINT Right eye pain; Possible orbital biopsy HISTORY OF PRESENT ILLNESS Right eye pain; constant unless she gets pain med or someone comes in and messes with my face; current pain under the right eye she rates 7/10 on the pain scale; unsure of when she last got any pain meds, may be a couple of hours ago. She feels nauseated and has had a hard time eating. She is unsure when she ate last and states yesterday or the day before. Nursing staff said she has been NPO since last night for possible biopsy today. Patient had a dilated eye exam at [facility] Missy Price on 04/27/14 swelling and pain of the right eye. His exam indicated a third nerve palsy and the patient was referred to Neurology at that time. She presented to [facility] later that day and was admitted at that time. From Dr. Mendez's Neurology Consult note of earlier today: Ms. Muhammad is a 39 year old female with a PMH of multiple sclerosis s/p Avonex, Copaxone and Tysabri but now off therapy for several years without incident, known chronic right optic atrophy with blindness and sinus surgery in 2000 with complications of orbital cellulitis/episcleritis who presented following a 5 day history of stabbing eye pain with ophthalmoplegia, periorbital swelling and scleral injection. She had a2002 right orbital biopsy that showed marked fibrosis, suggesting orbital inflammatory pseudotumor.She was treated successfully with systemic and intraocular injections of steroids. On this most recent admission, CTA & CTV: negative for sinus thrombosis, arterial aneurysm. MRI head showed new right frontal and right superior ethmoid opacification, right medial orbit T2 and gadolinium changeswith medial rectus involvement and T2+/enhancing cortical and brainstem changes suspicious for new demyelination. 27-Apr-2014 17:38:00 Exam: MRI Hd wo&w Indications: ED Acute 15856/MRI Head/? galdino santos w R CN 3/5 palsy. special orb; t ORIGINAL REPORT - 27-Apr-2014 19:39:00 [facility] EXAM: MRI Brain without and with IV contrast COMPARISON: Multiple prior MRIs most recently 04/06/2003 IMPRESSION: 1. New process involving the medial aspect of the right orbit with associated enhancement is nonspecific. Differential considerations primarily include infectious/inflammatory etiologies. 2. Findings compatible with a demyelinating process including active disease. FINDINGS: Patient has a complex history. She has a history of right sinus surgery complicated by orbital cellulitis in 2000 and right orbital inflammatory pseudotumor biopsied in 2001. She also has ahistory of presumed multiple sclerosis. New near complete opacification of the right frontal sinus with frothy secretions. Increased mucosal thickening involving the right-sided ethmoid air cells. Soft tissue thickening at the medial aspect of the orbit contiguous with the medial rectus has increased. Surrounding patchy T2 hyperintensity within the intraorbital fat of the right medial orbit with mild soft tissue periorbital thickening. No involvement of the cavernous sinus or Meckel's cave. Associated enhancement in the right medial orbit. Soft tissue thickening and inflammatory changes are contiguous with the ethmoid air cells. No discrete fluid collection. Findings are nonspecific. Differential considerations primarily include infectious/inflammatory conditions (for example, pseudotumor).Other considerations like tumor involvement (e.g. lymphoma) are considered less likely given age and patient's clinical history. Multiple T1 hypointense and T2 hyperintense lesions in the periventricular white matter. Many of which are perpendicular to the lateral ventricles. Several new lesions are T2 hyperintense with associated enhancement. No convincing associated d iffusion restriction. Collectively, these findings are most compatible with a demyelinating process including active disease. Additional other lesions that are T2 hyperintense involve the left middle cerebellar peduncle and medulla as well as a few patchy areas within the shaheen. One of the new lesions associated with enhancement is involving the corpus callosum is immediately adjacent to the lateral ventricle and somewhat unusual morphology. Multiple subcutaneous nodules, presumed sebaceous cyst. Recommend correlation with physical exam. Postoperative changes of the left globe from cataract surgery. Electronically signed by: Leatha Gunderson MD [id number] 27-Apr-2014 19:39 HR: confirmed above history. 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 She does have history of multiple sclerosis and this may be active as MRI shows new periventricular areas of T2 hyperintensity suggesting active demyelinating process. However, this seems xochilt separate from what is causing her orbital/sinus inflammation. MRI done on 04/27/14 shows a new process involving the medial aspect of the right orbit with associated enhancement which is non specific. Diagnostic possibilities include inflammatory such as orbital pseudotumor vs. possible infectious causes. Her ocular motility is limited on horizontal gaze but this appears to be mostly from pain.Plan is for biopsy today to hopefully help with diagnosis. This will be done in conjunction with our ENT colleagues. Ideally, this can be done from area of sinus involvement so as to minimize disrupting extraocular muscles. Therapy will be guided by the biopsy. Her 2001 biopsy showed inflammation with marked fibrosis. This type of sclerosing pseudotumor can be seen with IgG 4 related disease. Could consider re-reviewing the prior biopsy, although in my experience a biopsy of current disease is ideal if therapy for IgG4 related disease is to be considered. 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 #3 Multiple sclerosis #4 Hx of pars planitis, left #5 Pseudophakia, left CDM Reports - EYEGEN Id: [id number] Status: Fnl documented in this encounter Plan of Treatment Not on file documented as of this encounter Visit Diagnoses Not on filedocumented in this encounter Additional Health Concerns Infection Onset Date Last Indicated Resolved Time COVID19 Pending 12/17/2020 12/17/2020 01/06/2021 4 :54 AM RE EXAMINER documented as of this encounter Care Teams Store Deli Manager Relationship Specialty Start Date End Date Elsewhere, Pcp PCP - General Family Medicine 12/19/20 documented as of this encounter
--- OUTSIDE RECORDS SUMMARY | 2023-07-11 10:39 | XMS_ITS | Encounter Summary ---
Author Organization [facility] Address [address] [place] [address] Care Team Providers Care Fell Cutter Name Role Phone Elsewhere, Pcp Primary Care Provider Unavailabl e Reason for Visit * Reason Onset Date Comments Form Review 05/14/2023 [place] [id number] E ncounter Encounter Details Date Type Department Care Team (Latest Contact Info) Description 05/14/2023 Clinical Communication Department of Neurology in [place], [place] [address] [place] [address] Juan Jose Martin M.B., Ch.B. [address] [place] [id number] Form Review ([address] Encounter) Social History Tobacco Use Types Packs/Day Years Used Date Smoking Tobacco: Light Smoker Smokeless Tobacco: Never Comments:Smokes more when st ressed [facility] Utilities Answer Date Recorded In the past 12 months has e electric, gas, oil, or water company [...] declined 01/25/2022 How often do you attend druze or pentecostalism serv ices? Never 01/25/2022 Do you belong to any clubs o r organizations such as druze groups, unions, fraternal or athletic groups, or [...] medical care, and heating? Very hard 01/25/2022 [facility] - Occupational Stress [...] place to sleep or slept in a usp (including now)? No 01/25/2022 Nutrition Answer Date [...] Sex Assigned at Female 01/25/2022 2:30 PM DRIVER MESSENGER Gender Identity Female 01/25/2022 2:30 PM DRIVER MESSENGER Sexual Orientation Straight 01/25/2022 2: 30 PM DRIVER MESSENGER documented as of this encounter Miscellaneous Notes * Telephone Encounter - Raisa Jaquez L.P.N. - 05/17/2023 10:16 AM CDT Form faxed back to facility and sent for scanning. * Telephone Encounter - Raisa Jaquez L.P.N. - 05/14/2023 10:11 AM CDT Form was emailed to Dr. Martin for electronic review/signature. SHIFT COMMANDER: [employer] [facility] PHONE NUMBER: [phone] [facility] En[facility] INSTRUCTIONS: Fax information to [phone] documented in this encounter Plan of Treatment Not on file documented as of this encounter Visit Diagnoses Not on filedocumented in this encounter Care Teams Fell Cutter Relationship Specialty Start Date End Date Elsewhere, Pcp PCP - General Family Medicine 12/19/20 documented as of this encounter
--- OUTSIDE RECORDS SUMMARY | 2023-07-11 10:39 | XMS_ITS | Encounter Summary ---
Author Organization [facility] Address [address] [place] [address] Care Team Providers Care Pathology Laboratory Aides Teacher Name Role Phone Elsewhere, Pcp Primary Care Provider Unavailabl e Encounter Details Date Type Department Care Team (Late st Contact Info) Description 09/18/2014 Historical Ophthalmology RST OPH Kristen Westfall M.D. Social History Tobacco Use Types Packs/Day Years Used Date Smoking Tobacco: Never Assessed Sex and Gender Information Value Date Recorded Sex Assigned at Female 01/25/2022 2:30 PM PLY CUTTER Gender Identity Female 01/25/2022 2:30 PM PLY CUTTER Sexual Orientation Straight 01/25/2022 2: 30 PM PLY CUTTER documented as of this encounter Progress Notes * Kristen Westfall M.D. - 09/18/2014 7:08 AM CDT Eye General CHIEF COMPLAINT follow up Hx of orbital inflammation, right; Multiple sclerosis; optic atrophy, right eye HISTORY OF PRESENT ILLNESS NLP since 2000 ; blurred vision left eye since the start of a medication that she does not know thename (?) for her bipolar.; she is not sure when she started the medicine? no changes with floaters left eye ; occasional flash in her left ; constant pain left eye ; rates the pain 9 out of 10.; never goes away; severe dryness.; no drops or ointment. JAL: Is using Restasis BID without much relief. She tells me that she'd had a VF in the past. I went thru all the outside eye records in [place] dating back to 2003 but there were no VFs in there and no mention of one either. IMPRESSION / REPORT / PLAN Consult requested by: Josi Martinez [phone] #1 Blurred vision left eye. Today she was able to see 20/20-1 which is 2 lines better than the April and August exams and her color vision is now normal. Plan: RNFL/ganglion baseline OCT. I will review the tests when completed and put the results in theEMR. [facility]rus RNFL OCT: Thinning sup inf OD, sup OS. Avg thickness 73 OD, 79 OS. Signal 8/10 OU. Cirrus ganglion OCT: Thinning OU. Avg thickness 49 OD, 63 OS. Signal >8/10 OU. Testing consistent with clinical exam findings. #2 Visual field report, Arcuate visual field defect inferior , left eye. Foveal threshold is below expected @ 28 - given her near 20/20 vision. Gaze tracker showed a number of fixation deficits, test took > 6 minutes and 8% false pos. This defect is likely related to the chorioretinal scars. #3 Dry eye syndrome both eyes. This was dx by Dr. Price on his 04/19 exam and can contribute to her blurred vision. Plan: discussed contributing factors, use artificial tears at least 4 times/day and prn, gave patient dry eye instructions and sheet ( # 4113-03). 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 This was noted by Dr. Palmer in 2006 following pars planitis, scleritis and episcleritis. #5 Blind right eye with optic atrophy. This is secondary to sinus surgery done 05/08/00. DIAGNOSIS #1 Blurred vision left eye. #2 Visual field report, Arcuate visual field defect inferior , left eye. #3 Dry eye syndrome both eyes. 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 #5 Blind right eye with optic atrophy. CD Reports - EYEGEN Id: [id number] Status: Fnl documented in this encounter Plan of Treatment Not on file documented as of this encounter Visit Diagnoses Not on filedocumented in this encounter Additional Health Concerns Infection Onset Date Last Indicated Resolved Time COVID19 Pending 12/17/2020 12/17/2020 01/06/2021 4 :54 AM PLY CUTTER documented as of this encounter Care Teams Pathology Laboratory Aides Teacher Relationship Specialty Start Date End Date Elsewhere, Pcp PCP - General Family Medicine 12/19/20 documented as of this encounter
--- OUTSIDE RECORDS SUMMARY | 2023-07-11 10:39 | XMS_ITS | Clinical Summary ---
Author Organization [facility] Address [address] [place] [address] Care Team Providers Care Sole Polisher Name Role Phone Roddy Trevino Primary Care Provider [phone] Allergies Active Allergy Reactions Criticality Noted Date [...] (198 lb 9.6 oz) 04/10/2012 9:25 AM PERSONNEL RESEARCH SCIENTIST Height 171 cm (5' 7.32) 04/10/2012 9:2 5 AM PERSONNEL RESEARCH SCIENTIST Body Mass Index 30.81 04/10/2012 9:25 AM PERSONNEL RESEARCH SCIENTIST Plan of Treatment Not on file Care Teams Sole Polisher Relationship Specialty Start Date End Date Roddy Trevino PCP - General 12/14/10
--- OUTSIDE RECORDS SUMMARY | 2023-07-11 10:39 | XMS_ITS | Referral Summary ---
Author Organization [facility] Address [address] [place] [address] Care Team Providers Care Director Of Group Sales Name Role Phone Elsewhere, Pcp Primary Care Provider Unavailabl e Source Comments Patient records contain information from all sites at [facility]. For routine questions regarding patient records, call [phone] during business hours, M-F 8:00 AM - 5:00 PM Central Time. Record requests for emergency care only can be directed to [phone] at any time.[facility] Encounters Date Type Department Care Team Description 05/14/2023 Clinical Communication Department of Neurology in [address] [phone] Juan Jose Martin M.B., Ch.B. Form Review ([facility] F2F Encounter) 04/25/2023 Clinical Communication Department of Neurology in [address] [phone] Juan Jose Martin M.B., Ch.B. External PT order 04/24/2023 9:30 AM CDT Office Visit Department of Neurology in [address] [phone] Juan Jose Martin M.B., Ch.B. Multiple Sclerosis (HCC) (Primary Dx); Other Optic Atrophy Right Eye; Numbness; Ataxia Sensory; Diabetes Mellitus Type 2 With Diabetic Neuropathy (HCC) Discharge Disposition: Home or Self Care from Last 3 Months Allergies Active Allergy Reactions Criticality Noted Date [...] 3:00 p.m. daily 60 capsule 11 11/24/2022 4 Active dimethyl fumarate (TECFIDERA) [address] [...] 08/22/2014 Demyelinating Disease Central Nervous System 06/2002 Immunizations Name Administration Dates Next Due Influenza, Seasonal, Injectable 03/05/2001 influenza vaccine quad (FLUZ ONE/FLUARIX) (6 months and older)(PF) 12/18/2020 Social History Tobacco Use Types Packs/Day Years Used Date Smoking Tobacco: Light Smoker Smokeless Tobacco: Never Tobacco Cessation:Ready to Q uit: Not Asked; Counseling Given: Not Answered Comments:Smokes more when stressed [facility] Utilities Answer Date Recorded In the past [...] declined 01/25/2022 How often do you attend judaism or yazidi serv ices? Never 01/25/2022 Do you belong to any clubs o r organizations such as judaism groups, unions, fraternal or athletic groups, or [...] medical care, and heating? Very hard 01/25/2022 [facility] Occupat ional [facility] - Occupational Stress [...] place to sleep or slept in a group home (including now)? No 01/25/2022 Nutrition Answer Date [...] Sex Assigned at Female 01/25/2022 2:30 PM CASE CONSULTANT Gender Identity Female 01/25/2022 2:30 PM CASE CONSULTANT Sexual Orientation Straight 01/25/2022 2: 30 PM CASE CONSULTANT Last Filed Vital Signs Vital Sign Reading Time Taken Comments Blood Pressure 96/66 04/24/2023 9:27 AM CDT Pulse 73 04/24/2023 9:27 AM CDT Temperature 36.6 ??C (97.9 ??F) 12/19/2020 6:19 AM CS T Respiratory Rate 16 12/19/2020 6:19 AM CASE CONSULTANT Oxygen Saturation 94% 12/19/2020 6:19 AM CASE CONSULTANT Inhaled Oxygen Concentration - - Weight 104 kg (228 lb 13.4 oz) 12/28/2020 8:51 A M CASE CONSULTANT Height 175.3 cm (5' 9) 12/17/2020 10:53 PM CASE CONSULTANT Body Mass Index 33.79 12/17/2020 10:53 PM CASE CONSULTANT Plan of Treatment Not on file Medical Devices Implanted Type Area Matrix Plater Device Identifier Shelf Expiration Date Model / [...] HORMONE-SENSITIVE (S-TSH), S Routine 03/11/2023 4:45 AM CASE CONSULTANT EXTI LIPID PANEL W REFLEX MEASURED LDL Routine 11/30/2022 4:09 PM CDT BI BREAST SCREENING BILATERAL WITH TOMOSYNTHESIS Routine 06/07/2022 9:19 AM CDT OPHTHALMOLOGY IMAGE EXAM Routine 03/26/2015 12:00 AM CASE CONSULTANT CHRONIC VIRAL HEPATITIS PROFILE Routine 04/28/2014 6:41 PM CDT HIV-1/-2 AG AND AB SCREEN Routine 04/28/2014 6:41 PM CDT HEMOGLOBIN A1C, B Routine 04/27/2014 1:2 2 PM CDT from Last 3 Months or Most Recently Relevant to Health Maintenance Results * OPHTHALMOLOGY IMAGE EXAM (03/26/2015 12:00 AM CASE CONSULTANT) Anatomical Region Laterality Modality Other 03/26/2015 Addenda Addendum by ProviderJames M.D. on 03/26/2015 12:00 AM CASE CONSULTANT OPH^^^MCR Eyes Visual [place] 03/26/2015 00:00:00 Historical Provider IMG NON RAD IMAGING PROCEDURES * HIV-1/-2 Ag and Ab Screen (04/28/2014 6:41 PM CDT) Pathologist [facility] HIV-1/-2 Ag and Ab Screen, S Negative Negative [facility] Comment: Negative result does not rule out HIV infection. If ? acute HIV infection is suspected in a high-risk ? individual, submit plasma specimen for HIV-1 RNA ? quantification test (HIVQU) and/or HIV-2 DNA/RNA ? test (FHV2Q). ? 04/28/2014 6:41 PM CDT 04/28/2014 6:41 PM CDT Cirilo Mendez M.D. LAB MICROB IOLOGY - BLOOD ORDERABLES [facility] [address] * Chronic Hepatitis Profile (04/28/2014 6:41 PM CDT) HBs Antigen, S Negative Negative [facility] HBc Total Ab, S Negative Negative [facility] HBs Antibody,S Negative Unvaccinated : Negative; Vaccinated: Positive [facility] Comment:Patient is presumed to be not immune to infection with HBV. HBs Antibody, Quantitative, S <5.0 Unvaccinated : <5.0; Vaccinated: >=12.0 MIU/ML [facility] HCV Ab, S Negative Negative [facility] Comment:Hlvwdy-sy-rdcqaa rat io is <1.00. 04/28/2014 6:41 PM CDT 04/28/2014 6:41 PM CDT Cirilo Mendez M.D. LAB MICROB IOLOGY - BLOOD ORDERABLES [facility] [address] * Hemoglobin A1c (04/27/2014 1:22 PM CDT) Hemoglobin A1c, B 5.1 4.0 - 6.0 % [facility] 04/27/2014 1:22 PM CDT 04/27/2014 1:22 PM CDT Db Sousa M.D., M.A. LAB BLOOD ADD -ON Performing Organization Address City/[facility]/ZIP Co de Phone Number [facility] [address] from Last 3 Months or Most Recently Relevant to Health Maintenance Advance Directives For more information, please contact: [phone] * Full Code (Latest Code Status on File) Date Activated Date Inactivated Comments 12/18/2020 1:35 AM 12/19/2020 3:25 PM Question Answer Comments Full Code: Discussed Care Teams Director Of Group Sales Relationship Specialty Start Date End Date Elsewhere, Pcp PCP - General Family Medicine 12/19/20
--- OUTSIDE RECORDS SUMMARY | 2023-07-11 10:39 | XMS_ITS | Encounter Summary ---
Author Organization [facility] Address [address] [place] [address] Care Team Providers Care Employment Programs Analyst Name Role Phone Elsewhere, Pcp Primary Care Provider Unavailabl e Encounter Details Date Type Department Care Team (Late st Contact Info) Description 02/16/2004 Historical Ophthalmology [facility]ST [facility] Roddy Palmer M.D. [address] [place] [id number] Social History Tobacco Use Types Packs/Day Years Used Date Smoking Tobacco: Never Assessed Sex and Gender Information Value Date Recorded Sex Assigned at Female 01/25/2022 2:30 PM ALIGNMENT MECHANIC Gender Identity Female 01/25/2022 2:30 PM ALIGNMENT MECHANIC Sexual Orientation Straight 01/25/2022 2: 30 PM ALIGNMENT MECHANIC documented as of this encounter Progress Notes * Roddy Palmer M.D. - 02/16/2004 12:00 AM CST Eye General CHIEF COMPLAINT blurred vision left eye HISTORY OF PRESENT ILLNESS 29 year old female, follow up today for episcleritis, scleritis, optic atrophy right eye, and pars planitis left eye. ? see better with different prescription, floaters as before. Headaches have gotten worse, headache starts at the top right side, can last for days. Prescription meds are not helping like they used to. Pressure feeling on right eye, burning, painful at times, lid swelling at times. IMPRESSION / REPORT / PLAN #1 Episcleritis, scleritis #2 Optic atrophy R #3 Pars planitis L Inflammation resolved. Copy of refration given. Continue prednisolone once per day left eye, recheck 3 weeks, recheck at home with Dr. Alas. Could then stop prednisolone if inflammation is still quiet. Discussed the option of cataract surgery in left eye, but must must wait at least three monthsafter eye is quiet to consider. Will write Dr. Alas. DIAGNOSIS #1 Episcleritis, scleritis #2 Optic atrophy R #3 Pars planitis L CDM Reports - [facility] Id: [id number] Status: Fnl documented in this encounter Plan of Treatment Not on file documented as of this encounter Visit Diagnoses Not on filedocumented in this encounter Additional Health Concerns Infection Onset Date Last Indicated Resolved Time COVID19 Pending 12/17/2020 12/17/2020 01/06/2021 4 :54 AM ALIGNMENT MECHANIC documented as of this encounter Care Teams Employment Programs Analyst Relationship Specialty Start Date End Date Elsewhere, Pcp PCP - General Family Medicine 12/19/20 documented as of this encounter
--- OUTSIDE RECORDS SUMMARY | 2023-07-11 10:39 | XMS_ITS ---
Author Organization [facility] Address [address] [place] [address] Care Team Providers Care Manager Card Name Role Phone Unavailable Unavailable Unavailable Surgery Details Not on file Complications Check Surgery Details section. Procedure Estimated Blood Loss Check Surgery Details section. Procedure Findings Check Surgery Details section. Procedure Specimens Taken Check Surgery Details section.
--- OUTSIDE RECORDS SUMMARY | 2023-07-11 10:39 | XMS_ITS | Encounter Summary ---
Author Organization [facility] Address [address] [place] [address] Care Team Providers Care Absence Management Consultant Name Role Phone Elsewhere, Pcp Primary Care Provider Unavailabl e Encounter Details Date Type Department Care Team (Late st Contact Info) Description 08/21/2014 Historical Ophthalmology [facility] Adolph De Santiago M.D., Ph.D. [address] [place] [address] Social History Tobacco Use Types Packs/Day Years Used Date Smoking Tobacco: Never Assessed Sex and Gender Information Value Date Recorded Sex Assigned at Female 01/25/2022 2:30 PM MAINTENANCE JOB TITLES Gender Identity Female 01/25/2022 2:30 PM MAINTENANCE JOB TITLES Sexual Orientation Straight 01/25/2022 2: 30 PM MAINTENANCE JOB TITLES documented as of this encounter Progress Notes * Adolph De Santiago M.D., Ph.D. - 08/21/2014 12:11 PM CDT Eye General CHIEF COMPLAINT MS Exacerbation HISTORY OF PRESENT ILLNESS Pain around the right eye at a 10/10 on pain scale right now; may be due for pain medication soon. Starting to get some pain around the left eye. Vision in the left eye will get blurred and then she blinks to make it better. Uses Restasis at home twice a day, but has not gotten any since in the hospital. Eyes hurt when she blinks, like it there are eyelashes scratching the eye or something. She was inpatient at [facility] in April [address] Marroquin for a right periorbital lesion.On 04/29/14, ENT took the patient to the operating room and performed an aspiration and culture, orbital, periorbital, and paranasal sinus contents. Pathology showed chronic inflammation with no sign of infection. The patient was transferred to [facility] yesterday (08/20/14) from [facility] in [place] for right sided hemiplegia and hemisensory loss due to MS Exacerbation. She was started in IV steroids yesterday at 1000 mg/day for four days. She has received her dosage today starting at 8 am. The pain had been improving behind the right eye, but woke up this past Sunday with worse pain behind the right eye. [facility] Admission note: Ms. 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 She also has a history of lupus on hydroxychloroquine, but stopped taking medications in March 2014 and has not followed-up in 3-5 years witha marine engineer cpvec. She presented to the [place] ED with progressive right sided hemisensory loss, dizziness, nausea,vomiting, gait instability, and weakness. She reports her right sided hemiparesis started approximately 1 year ago, but worsened in May, then again around August 07, and again several days leading up to admission. In May she also noted right hemisensory loss which worsened August 07, and again this past week. 4 days prior to admission she developed increasing gait instability, dizziness, nausea, and had decreased PO intake. Additionally she has had increasing right eye pain and electric shocks shooting throughout her body associated with neck movement. She states for pain control at home she has been taking Lyrica, [place], and Vicodin; however she is unsure what her dose of Vicodin is and reports she has not taken it for a while. Because these symptoms had been worsening she presented to the ED for further evaluation. IMPRESSION / REPORT / PLAN #1 hx of orbital inflammation, right #2 History of biopsy consistent with orbital pseudotumor #3 Multiple sclerosis #4 Hx of pars planitis, left #5 Pseudophakia, left #6 dry eye #7 optic atrophy, right eye (remains no light perception) She currently has limitation in abduction in the right eye, which appears to be mechanical with retraction/adherence of the right medial rectus on MRI, presumably from prior orbital inflammation. There is no obvious active orbital inflammation on the scan, but there could be right medial rectus myositis. There is not enough to re-biopsy at this point and two prior biopsies have been nonspecific. Prior workup has been largely unremarkable, including a lack of IgG4 disease. Normal FILIPPO and ANCA. Neg NMO. The only abnormality has been an elevated VANESA at 3.2 and SSA at 8.0. I would recommend an empiric short course of IV steroids for the eye pain. This would also treat the demyelinating cord lesion. The intermittent pain and foreign body sensation in the left eye is due to dryness. Recommend aggressive artificial tears at least 4 times a day and Refresh PM ointment at bedtime. I would like to see her as an outpatient in neuro-ophthalmology clinic for baseline visual sellers and OCT. 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 #3 Multiple sclerosis #4 Hx of pars planitis, left #5 Pseudophakia, left #6 dry eye #7 optic atrophy, right eye (remains no light perception) CDM Reports - [facility] Id: [id number] Status: Fnl documented in this encounter Plan of Treatment Not on file documented as of this encounter Visit Diagnoses Not on filedocumented in this encounter Additional Health Concerns Infection Onset Date Last Indicated Resolved Time COVID19 Pending 12/17/2020 12/17/2020 01/06/2021 4 :54 AM MAINTENANCE JOB TITLES documented as of this encounter Care Teams Absence Management Consultant Relationship Specialty Start Date End Date Elsewhere, Pcp PCP - General Family Medicine 12/19/20 documented as of this encounter
--- OUTSIDE RECORDS SUMMARY | 2023-07-11 10:40 | XMS_ITS | Referral Summary ---
Author Organization [facility] Address [address] [place] [id number] Care Team Providers Care Pest Control Service Representative Name Role Phone Roddy Trevino Primary Care Provider [phone] Allergies Active Allergy Reactions Criticality Noted Date [...] (198 lb 9.6 oz) 04/10/2012 9:25 AM COOK FROZEN DESSERT Height 171 cm (5' 7.32) 04/10/2012 9:2 5 AM COOK FROZEN DESSERT Body Mass Index 30.81 04/10/2012 9:25 AM COOK FROZEN DESSERT Plan of Treatment Not on file Care Teams Pest Control Service Representative Relationship Specialty Start Date End Date Roddy Trevino PCP - General 12/14/10
--- OUTSIDE RECORDS SUMMARY | 2023-07-11 10:40 | XMS_ITS | Clinical Summary ---
Author Organization [employer] Formerly [facility] Address [place], [place] [address] Care Team Providers Care Jacquard Card Lacer Name Role Phone Laurence Mujica Primary Care Provider [phone] Yumiko Garcia COMMUNICATIONS TOWER CLIMBER Unavailable Unavailable Nga White MD Unavailable [phone] [facility] [place] Unavailable [facility] [place] Unavailable Allergies Active Allergy Reactions Criticality Noted [...] High 07/23/2007 Morphine Chest Pain,Palpitations 11/20/2012 Tolerated [place] 04/21/2014 And chest pains Mushroom Anaphylaxis High [...] bladder disorder,Multiple sclerosis (HC) As directed. 14 [place]kin[place] straight cath for self cath up to [...] bed. Length of need 99 months. Bed sustainability specialist:no 1 Each 2 Active continuous glucose monitor READER (ActiveReplayyle Keegan 2 [place])Indications: diabetes mellitus As directed. Use with Keegan 2 sensor as per office helper's directions 1 Each 2 Active Gauze Bandage [...] A DAY 200 Each 3 3 Active Milk of Magnesia 400 mg/5 mL suspensionIndicatio ns:Constipation, unspecified constipation type Take 30 mL by mouth once daily if needed for Constipation (use first). 4 Active albuterol HFA (PRO-AIR; VENTOLIN; PROVENTIL) 90 mcg/actuation inhalerIndications: COPD mixed type (HC) Inhale 2 Puffs by mouth every 4 hours if needed for Shortness Of Breath or Wheezing. 4 Active dulaglutide (TRULICITY) 0.75 mg/0.5 mL [...] once daily if needed for Constipation. Active ciprofloxacin HCl (CIPRO) 500 mg tabletIndications:L eft breast abscess Take 1 Tablet (500 mg) by mouth two times daily for 14 days. 28 Tablet 4 07/23/19 24 Active methocarbamoL (ROBAXIN) 500 mg tabletIndications:M uscle spasm Take 1 Tablet (500 mg) by mouth every 6 hours if needed for Muscle Spasm. 60 Tablet 1 4 Active ketoconazole 2% topical (NIZORAL) creamIndications:Ca ndidal intertrigo Use once daily as needed for groin rash 60 g 1 4 Active sennosides (SENNA) 8.6 mg tabletIndications:C hronic constipation Take 1 Tablet (8.6 mg) by mouth 2 times daily if needed for Constipation. 60 Tablet 1 4 Active Adderall XR 20 mg Extended-Release capsuleIndications: attention-deficit hyperactivity disorder Take 1 Capsule (20 mg) by mouth once daily.Indications : attention deficit disorder with hyperactivity 7 Capsule 4 07/09/19 24 Discontinue d(*Med complete/Re gimen complete/[place] ashley of care change) dextroamphetamine-a mphetamine (ADDERALL) 20 mg tabletIndications:a ttention-deficit hyperactivity disorder [The details of the medication are not available because there are pending changes by a home health clinician.] 7 Tablet 4 07/09/19 24 Discontinue d(*Med complete/Re gimen complete/[place] ashley of care change) ketoconazole 2% topical (NIZORAL) creamIndications:Ca ndidal intertrigo Use once daily as needed for groin rash 60 g 1 4 07/09/19 24 Discontinue d(Reorder (E-cancel not sent)) tiZANidine (ZANAFLEX) 4 mg tablet Take 12 [...] 5 days. 5 Tablet 4 06/24/19 24 tiZANidine (ZANAFLEX) 4 mg tabletIndications:M uscle spasm Take 1 Tablet (4 mg) by mouth every 6 hours if needed for Muscle Spasm. 60 Tablet 2 4 07/09/19 24 Discontinue d(*Medicati on adjustment) Active Problems Problem Noted Date Diagnosed Date Severe sepsis 06/02/2023 Acute UTI 06/02/2023 Hyperlipidemia 06/02/2023 GERD (gastroesophageal reflux disease) Wound disruption, post-op, skin, initial encount er [...] loss in right eye. Was seen at [place] by neurology and rheumatology, apparently had characteristic MRI with demyelinating lesions but numerous lumbar punctures have not demonstrated CSF protein abnormalities. Has been seen at [facility] neurology clinic. Currently following with Dr. Shepherd at [facility]. Started on Tysabri (monoclonal baldo) infusions in 2007. Continues to have progressive symptoms. 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 12/06/15--Neurologist is Dr. Ab Whittington- location [facility] ext [phone]. Currently being treated with Aubagio. Laurence Mujica PA-C, Family Medicine.....................12/06/2015 3:22 PM UARS (upper airway resistance syndrome) Resolved Problems Problem Noted Date Diagnosed Date Resolved Date Blood clot in bladder 02/17/20232023 Suprapubic catheter dysfunction 02/17/2023 04/28/2023 Hematemesis 02/16/2023 04/28/2023 Hematuria 02/15/2023 04/28/2023 Morbid exogenous obesity 02/14/2023 Type 2 diabetes mellitus wit h diabetic polyneuropathy, without long-term current use of insulin 02/14/2023 04/28/2023 Cystitis 12/14/2022 04/28/2023 Rheumatoid arthritis, involv ing unspecified site, unspecified whether rheumatoid factor present 12/02/2022 04/28/2023 Bacteremia due to Gram-positive bacteria 09/18/2022 04/28/2023 Hypokalemia 09/18/2022 04/28/2023 Suprapubic catheter dysfunction 04/21/2022 08/29/2022 Paresis of single lower extremity 02/09/2022 04/28/2023 Suprapubic catheter 01/04/2022 04/28/19 Paresthesia of foot, bilateral 09/21/2021 04/28/2023 Muscle weakness 02/25/2021 04/06/2021 Overview: Overview: Created by Conversion Myalgia and myositis, unspecified 02/25/2021 04/06/2021 Overview: Overview: Created by Conversion Optic nerve and pathway injury 02/25/2021 02/25/2021 Overview: Overview: Created by Conversion [facility] Annotation: May 09 2011 2:19PM - [...] reaction 12/06/2015 05/31/19 17 Status migrainosus 06/22/2015 Acute pyelonephritis 06/21/2015 017 Abnormal peripheral vision [...] - ? Seizure, started on phenytoin by [facility]. Then switched to Lyrica. Other convulsions 05/24/2007 [...] Encounters Date Type Department Care Team Description 07/09/2023 12:50 PM CDT Office Visit [facility] [address] [place] [address] Laurence Mujica PA Derm Problem (Check breast-has a 'hole with yellow drainage'-also needs cream for stomach) 07/09/2023 9:00 AM CDT Home Care Visit [facility] [address] [place] [address] Radha Bob RN SN - HOME VISIT 07/09/2023 Orders Only [facility] [address] [place] [address] Laurence Mujica PA <No scans attached> 07/08/2023 Travel 07/07/2023 10:30 AM CDT Home Care Visit [facility] [address] [place] [address] Radha Bob, RN SN - LONG VISIT (>90 MINUTES) 07/06/2023 1:00 PM CDT Home Care Visit [facility] [address] [place] [address], [place] [address] Ivette Martinez, RN SN - WOUND HOME VISIT 07/06/2023 Home Care Visit [place] [id number] [place] [address], [place] [address] Maria Victoria Mcintosh, PT PT - DISCIPLINE DISCHARGE 07/06/2023 Orders Only [facility] [address] [place] [address] Laurence Mujica PA <No scans attached> 07/06/2023 Home Care Visit [facility] [id number] [place] [address], [place] [address] Maria Victoria Mcintosh, PT CARE COORDINATION 07/05/2023 Home Care Visit [facility] [address] [place] [address], [place] [address] Maria Victoria Mcintosh, PT PT - MISSED VISIT 07/04/2023 8:00 AM CDT Home Care Visit [place] [address] [place] [address], [place] [address] Orlando Escobar, RN SN - OASIS RECERTIFICATION 07/04/2023 Plan of Care Documentation [address] [place] [address] 07/03/2023 12:00 PM CDT Home Care Visit [address] [place] [address] Luisa Burnett, PT PT - HOME VISIT 07/02/2023 8:30 AM CDT Home Care Visit [address] [place] [address] Radha Bob, RN SN - WOUND HOME VISIT 07/01/2023 8:30 AM CDT Home Care Visit [address] [place] [address] Radha Bob, RN SN - WOUND HOME VISIT 06/30/2023 12:00 PM CDT Home Care Visit [facility] [address] [place] [address] Radha Bob, RN SN - WOUND HOME VISIT 06/29/2023 9:00 AM CDT Home Care Visit [facility] [address] [place] [phone] Orlando Escobar, RN SN - WOUND HOME VISIT 06/28/2023 10:15 AM CDT Home Care Visit [facility] [address] [place] [address] Luisa Burnett, PT PT - WOUND HOME VISIT 06/28/[address] [address] Luisa Burnett, PT Home Care 06/27/2023 12:30 PM CDT Home Care Visit [facility] [address] [place] [address] Orlando Escobar, RN SN - WOUND HOME VISIT 06/26/2023 10:15 AM CDT Home Care Visit [facility] [address] [place] [phone] Luisa Burnett, PT PT - WOUND HOME VISIT 06/25/2023 10:30 AM CDT Home Care Visit [facility] [address] [place] [phone] Orlando Escobar, RN SN - WOUND HOME VISIT 06/24/2023 11:00 AM CDT Home Care Visit [facility] [address] [place] [phone] Radha Bob, RN SN - HOME VISIT 06/23/2023 10:30 AM CDT Home Care Visit [facility] [address] [place] [phone] Radha Bob, RN SN - HOME VISIT 06/22/2023 10:30 AM CDT Home Care Visit [facility] [address] [place] [address] Orlando Escobar, RN SN - WOUND HOME VISIT 06/21/2023 11:30 AM CDT Office Visit [facility] [address] [facility] [address] [place] [address] Tata Cruz PA Surgical Followup (Check open wound on her left breast S/P Bilateral Breast Reduction with free nipple graft on 05/09/23 with Yazmin) 06/21/2023 10:30 AM CDT Home Care Visit [facility] [address] [place] [address] Luisa Burnett, PT PT - MISSED VISIT 06/21/2023 Travel 06/21/2023 Telephone [facility] [address] [phone] Alfredo Arce MD Post-op Pain/problem (Wound on left breast) 06/20/2023 12:00 PM CDT Home Care Visit [facility] [address] [place] [address] Orlando Escobar, RN SN - WOUND HOME VISIT 06/20/2023 4:00 AM CDT Home Care Visit [facility] [address] [place] [address] Laurence Clemons RN SN - WOUND/OSTOMY CHART CONSULT 06/20/2023 Travel 06/20/2023 Telephone [facility] [address] [place], [place] [phone] Laurence Clemons, drapery cutter machine (Wound care plan - requesting wound vac) 06/19/2023 1:30 PM CDT Home Care Visit [facility] [address] [place] [address] Luisa Burnett, PT PT - MISSED VISIT 06/19/2023 10:48 AM CDT - 06/19/2023 2:[address] [facility] [address] [place] [address] Alison Elmore NP Breast abscess (Primary Dx); Cellulitis, unspecified cellulitis site; Wound dehiscence Discharge Disposition: Home Self Care 06/19/2023 Telephone [facility] [address] [phone] Alfredo Arce MD Appointment Reminder; Appointment Request 06/19/2023 Travel 06/19/2023 Nurse Triage [facility] [address] [place] [address] Laurence Mujica PA Home Care (Pain ) 06/19/2023 Nurse Triage [facility] [address] [place] [address] Laurence Mujica PA Pain In Breast 06/18/2023 5:00 PM CDT Home Care Visit [facility] [address] [place] [phone] Radha Bob RN SN - WOUND HOME VISIT 06/18/2023 Home Care Visit [facility] [address] [place] [phone] Radha Bob, RN CARE COORDINATION 06/17/2023 8:00 AM CDT Home Care Visit [facility] [address] [place] [phone] Radha Bob, RN SN - WOUND HOME VISIT 06/16/2023 3:30 PM CDT Home Care Visit [facility] [address] [place] [phone] Radha Bob, CALLUM SN - WOUND HOME VISIT 06/15/2023 1:15 PM CDT Home Care Visit [facility] [address] [place] [phone] Socorro Barajas LPN CLAY HOISTER - HOME VISIT 06/14/2023 12:30 PM CDT Home Care Visit [facility] [address] [facility] [address] Orlando Escobar, RN SN - HOME VISIT 06/14/2023 10:30 AM CDT Home Care Visit [facility] [address] [facility] [place] [address] Luisa Burnett, PT PT - HOME VISIT 06/13/2023 12:30 PM CDT Home Care Visit [facility] [address] [facility] [address] Socorro Barajas LPN CLAY HOISTER - MISSED VISIT 06/13/2023 Home Care Visit [facility] [address] [facility] [place] [address] Orlando Escobar, RN CARE COORDINATION 06/12/2023 9:00 AM CDT Home Care Visit [facility] [address] [facility] [address] Luisa Burnett, PT PT - HOME VISIT 06/12/2023 Home Care Visit [facility] [address] [place] [address], [place] [address] Orlando Escobar, RN SN - MISSED VISIT 06/12/2023 Telephone [facility] [address] [place] [address] Laurence Mujica PA Form (Jury Duty) 06/11/2023 4:00 PM CDT Home Care Visit [facility] [address] [place] [phone] Radha Bob RN SN - WOUND HOME VISIT 06/11/2023 Telephone [facility] [address] [place] [address] Laurence Mujica PA Letter 06/10/2023 9:00 AM CDT Home Care Visit [facility] [address] [place] [phone] Orlando Escobar, RN SN - WOUND HOME VISIT 06/09/2023 9:00 AM CDT Home Care Visit [facility] [address] [facility] [place] [address] Orlando Escobar, RN SN - WOUND HOME VISIT 06/08/2023 1:30 PM CDT Home Care Visit [facility] [address] [facility] [place] [address] Laurence Clemons RN SN - WOUND/OSTOMY CHART CONSULT 06/08/2023 12:00 PM CDT Home Care Visit [facility] [address] [facility] [address] Orlando Escobar, RN SN - INITIAL ASSESSMENT 06/07/2023 4:00 PM CDT Home Care Visit [facility] [address] [facility] [address] Luisa Burnett, PT PT - OASIS RESUMPTION OF CARE 06/07/2023 Telephone [facility] [address] [place], [place] [phone] Luisa Burnett, PT Home Care 06/07/2023 Telephone [facility] [address] [place] [address] Luisa Burnett, PT Home Care 06/06/2023 Patient Outreach [address] [phone] Felicita Dickinson RN Primary RN Care Management; Hospital F/U (LACE 80) 06/05/2023 Travel 06/04/2023 Travel 06/04/2023 Telephone [facility] [address] [phone] Alfredo Arce MD Surgical Followup (Wound under left breast/S/p: Bilateral Breast Reduction/DOS: 05/09/2023/Surgeon: Alfredo Arce//) 06/03/2023 Home Care Visit [facility] [address] [facility] [phone] Luisa Burnett, PT PT - OASIS TRANSFER 06/01/2023 8:28 PM CDT - 06/05/2023 12:30 PM CDT Hospital Encounter [facility] [address] [place] [address] Lane Barahona PA Drevlow, Kris Wempen, DO Dang, JUDE Couch Renae Ann, NP Cudak, Austin Christopher, DO Sepsis, due to unspecified organism, unspecified [...] 05/30/2023 12:00 PM CDT Home Care Visit [facility] [address] [place] [address] Luisa Burnett, PT PT - HOME VISIT 05/30/2023 Refill [facility] [address] [place] [address] Laurence Mujica PA Refill Request (Ondansetron) 05/28/2023 12:30 PM CDT Home Care Visit [address] [address] Josi Tolentino RN SN - HOME VISIT 05/28/2023 8:56 AM CDT - 05/28/2023 11:[address] [facility] [address] [place] [address] Darryl Hardy MD Postoperative hematoma of skin following non-dermatologic procedure (Primary Dx) Discharge Disposition: Home Self Care 05/28/2023 Travel 05/25/2023 Nurse Triage [facility] [address] [address] Alfredo Arce MD Post-op 05/23/2023 12:00 PM CDT Home Care Visit [facility] [address] [facility] [place] [address] Luisa Burnett, PT PT - HOME VISIT 05/22/2023 1:00 PM CDT Home Care Visit [facility] [address] [facility] [place] [address] Josi Tolentino RN SN - HOME VISIT 05/21/2023 1:00 PM CDT Office Visit [facility] [address] [facility] [address] [place] [address] Alfredo Arce MD Surgical Followup (Bilateral Breast Reduction with free nipple graft, DOS: 05/09/23, w/ Dr. Arce) 05/21/2023 3:00 AM CDT Home Care Visit [facility] [address] [facility] [address] Luisa Burnett, PT PT - MISSED VISIT 05/21/2023 Travel 05/17/2023 11:00 AM CDT Home Care Visit [facility] [address] [place] [address] Socorro Barajas LPN CLAY HOISTER - HOME VISIT 05/17/2023 3:00 AM CDT Home Care Visit [facility] [address] [place] [address] Luisa Burnett, PT PT - MISSED VISIT 05/17/2023 Travel 05/17/2023 Telephone [facility] [address] [facility] [address] [place] [address] Alfredo Arce MD Hospital F/U (Sutures/itchiness. ) 05/16/2023 1:15 PM CDT Home Care Visit [facility] [address] [facility] [place] [address] Luisa Burnett, PT PT - MISSED VISIT 05/14/2023 10:30 AM CDT Home Care Visit [facility] [address] [place] [address] Josi Tolentino, RN SN - INITIAL ASSESSMENT 05/14/2023 Home Care Visit [facility] [address] [place] [address] Josi Tolentino, RN CARE COORDINATION 05/14/2023 Telephone [facility] [address] [place] [address] Laurence Mujica PA Home Care (home care orders needed) 05/10/2023 1:00 PM CDT Nurse/Clinic Staff Only [facility] [address] [phone] Surgical Followup (Post-operative call/DOS: 05/09/2023/Surgeon: Alfredo Arce) 05/10/2023 Travel 05/09/2023 9:50 AM CDT - 05/09/2023 11:40 AM CDT Surgery [address] [address] Alfredo Arce MD Bilateral Breast Reduction with free nipple graft 05/09/2023 9:50 AM CDT Anesthesia Event [address] [address] Alfredo Villa MD [facility], Henok Hameed MD 05/09/2023 8:21 AM CDT - 05/09/2023 1:12 PM CDT Hospital Encounter [address] [address] Alfredo Arce MD S/P bilateral breast reduction (Primary Dx) Discharge Disposition: Home Self Care 05/09/2023 Travel 05/08/2023 Home Care Visit [facility] [address] [place] [address] Roddy Pollack, PT CARE COORDINATION 05/08/2023 Home Care Visit [facility] [address] [place] [address] Roddy Pollack, PT CARE COORDINATION 05/08/2023 Orders Only [facility] [address] [facility] [place] [address] Laurence Mujica, [place] <No scans attached> 05/07/2023 11:15 AM CDT Home Care Visit [facility] [address] [facility] [address] Roddy Pollack, PT PT - OASIS START OF CARE 05/07/2023 Telephone [facility] [address] [place] [address] Roddy Pollack, PT Home Care (/) 05/07/2023 Orders Only [facility] [address] [facility] [place] [address] Laurence Mujica PA <No scans attached> 05/07/2023 Plan of Care Documentation [facility] [address] [facility] [place] [address] 05/04/2023 Telephone [facility] [address] [place] [address] Roddy Pollack, PT Home Care 05/03/2023 Travel 05/01/2023 Travel 04/30/2023 Home Care Visit [facility] [address] [facility] [place] [address] Maria Victoria Mcintosh, PT CARE COORDINATION 04/30/2023 Home Care Visit [facility] [address] [facility] [place] [address] Luisa Burnett, PT CARE COORDINATION 04/27/2023 10:30 AM CDT Preop Visit [facility] [address] [facility] [place] [address] Laurence Mujica PA Preoperative Exam ([facility]-Dr. Arce-breast reduction-05/09/23) 04/27/2023 Travel 04/27/2023 Transcribe Orders [facility] [address] [facility] [address] Juan Jose Martin, [facility] 04/25/2023 Travel 04/21/2023 Refill [facility] [address] [place] [address] Laurence Mujica PA Refill Request (Valacyclovir) 04/20/2023 Telephone [facility] [address] [facility] [place] [address] Alfredo Arce MD Appointment (Pre-op) 04/17/2023 2:45 PM CDT Office Visit [facility] [address] [facility] [address] [place] [address] Michoacano Nathan MD Consult (MS) 04/17/2023 Travel from Last 3 Months Immunizations Name Administration Dates Next Due COVID-19 vaccine (Pfizer-Bio NTech 30mcg/0.3mL) 12YO+ BIVALENT PF, MDV 11/24/2021 COVID-19 vaccine (Pfizer-Bio NTech 30mcg/0.3mL) PF, MDV 12/15/2020,09/27/2020 Influenza, IIV3 (Age >=3 years) 11/09/2009,11/09,03/05/2001 Influenza, IIV4 11/24/2021,,02/10/2020,02/07/19,01/11/2017,10/25/2015,10/24/2013 Td (Age >=7 Years) 06/11/1991 Tdap 05/31/2011 [...] Sign Reading Time Taken Comments Blood Pressure 110/72 07/09/2023 12:58 PM CDT Pulse 80 07/09/2023 12:58 PM CDT Temperature 36.7 ??C (98 ??F) 07/09/2023 12:58 PM CDT Respiratory Rate 18 07/09/2023 10:12 AM CDT Oxygen Saturation 97% 07/09/2023 12:58 PM CDT Inhaled Oxygen Concentration - - Weight 84.4 kg (186 lb) 06/21/2023 11:41 AM CDT Height 174 cm (5' 8.5) 06/19/2023 10:56 AM CDT Body Mass Index 27.87 06/19/2023 10:56 AM CDT Plan of Treatment Upcoming Encounters Date Type Department Care Team (Late st Contact Info) Description 07/13/2023 Home Care Visit [facility] [address] [facility] [address] Orlando Escobar, RN [address] [facility] [place] [address] 07/17/2023 10:[address] [facility] [address] [place] [address] 07/17/2023 11:[address] [facility] [address] [facility] [place] [address] 07/26/2023 12:30 PM CDT Procedure Only [facility] [address] [place] [address] Michoacano Nathan MD [address] [place] [address] Health Maintenance Due Date Last Done Comments [...] For Patients: ??As a result of the Century Cures Act, [...] 06/19/2023 12:45:40 PM (Electronically Signed) Alison Elmore COMMUNICATIONS TOWER CLIM[employer] CT * BLOOD CULTURE X2 (06/19/2023 11:49 AM CDT) Only the most recent of4 resultswithin the time period is included. CULTURE No Growth. 06/24/2023 1:[address] [facility] Blood BLOOD SPECIMEN / Unknown Butterfly / Unknown 06/19/2023 11:49 AM CDT 06/19/2023 12:15 PM CDT Alison Elmore COMMUNICATIONS TOWER CLIMBER MICROBIOLOG Y [facility] [address] [place] [address] * (ABNORMAL) CBC WITH AUTO DIFFERENTIAL (06/19/2023 11:39 AM CDT) Only the most recent of3 resultswithin the time period is included. [facility] WHITE BLOOD COUNT 5.1 4.5 - 11.0 thou/cu mm 06/19/2023 11:[address] [facility] RED BLOOD COUNT 4.05 4.00 - 5.20 mil/cu mm 06/19/2023 11:[address] [facility] HEMOGLOBIN 10.0(L) 12.0 - 16.0 g/dL 06/19/2023 11:[address] [facility] HEMATOCRIT 33.1 33.0 - 51.0 % 06/19/2023 11:[address] [facility] MCV 82 80 - 100 fL 06/19/2023 11:[address] [facility] MCH 24.7(L) 26.0 - 34.0 pg 06/19/2023 11:[address] [facility] MCHC 30.2(L) 32.0 - 36.0 g/dL 06/19/2023 11:[address] [facility] RDW 16.8(H) 11.5 - 15.5 % 06/19/2023 11:[address] [facility] [facility] PLATELET COUNT 314 140 - 440 thou/cu mm 06/19/2023 11:[address] [facility] MPV 9.9 6.5 - 11.0 fL 06/19/2023 11:[address] [facility] % NEUT 68.3 % 06/19/2023 11:[address] [facility] % LYMPH 13.8 % 06/19/2023 11:[address] [facility] % MONO 9.9 % 06/19/2023 11:[address] [facility] % EOS 7.2 % 06/19/2023 11:[address] [facility] % BASO 0.8 % 06/19/2023 11:[address] [facility] ABSOLUTE NEUTROPHILS 3.5 1.7 - 7.0 thou/cu mm 06/19/2023 11:[address] [facility] ABSOLUTE LYMPHOCYTES 0.7(L) 0.9 - 2.9 thou/cu mm 06/19/2023 11:[address] [facility] ABSOLUTE MONOCYTES 0.5 <0.9 thou/cu mm 06/19/2023 11:[address] [facility] ABSOLUTE EOSINOPHILS 0.4 <0.5 thou/cu mm 06/19/2023 11:[address] [facility] ABSOLUTE BASOPHILS 0.0 <0.3 thou/cu mm 06/19/2023 11:[address] [facility] Blood BLOOD SPECIMEN / Unknown Butterfly / Unknown 06/19/2023 11:39 AM CDT 06/19/2023 11:52 AM CDT Alison Elmore NP HEMATOLOGY [facility] [address] [place] [address] * LACTATE VENOUS (06/19/2023 11:39 AM CDT) Only the most recent of4 resultswithin the time period is included. LACTATE,VENOUS 0.7 0.5 - 2.0 mmol/L 06/19/2023 12:08 PM T [facility] Blood BLOOD SPECIMEN / Unknown Butterfly / Unknown 06/19/2023 11:39 AM CDT 06/19/2023 11:47 AM CDT Alison Elmore COMMUNICATIONS [employer] CHEMISTRY [facility] [address] [place] [address] * PROCALCITONIN (06/19/2023 11:39 AM CDT) PROCALCITONIN 0.04 ng/ml 06/19/2023 12:21 PM CDT [facility] Blood BLOOD SPECIMEN / Unknown Butterfly / Unknown 06/19/2023 11:39 AM CDT 06/19/2023 11:47 AM CDT Narrative [facility] - 06/19/2023 12:21 PM CDT Procalcitonin [...] < 2 ng/mL are obtained. Alison Elmore NP SEND OUTS Performing Organization Address City/State/[facility] Co de Phone Number [facility] [address] [place] [phone] * (ABNORMAL) PROTIME-INR (06/19/2023 11:39 AM CDT) Only the most recent of3 resultswithin the time period is included. INR 1.1 <1.3 06/19/2023 11:56 AM CDT [facility] PROTIME 12.5(H) 10.3 - 12.3 sec 06/19/2023 11:56 AM T [facility] Blood BLOOD SPECIMEN / Unknown Butterfly / Unknown 06/19/2023 11:39 AM CDT 06/19/2023 11:47 AM CDT [facility] - 06/19/2023 11:56 AM CDT ?Therapeutic [...] if the patient is on UFH. Alison Tete Torgersen COMMUNICATIONS [employer] HEMATOLOGY [facility] [address] [place] [address] * (ABNORMAL) COMP METABOLIC PANEL (06/19/2023 11:39 AM CDT) Only the most recent of2 resultswithin the time period is included. SODIUM 138 136 - 145 mmol/L 06/19/2023 12:[address] [facility] POTASSIUM 3.7 3.5 - 5.1 mmol/L 06/19/2023 12:[address] [facility] CHLORIDE 101 98 - 107 mmol/L 06/19/2023 12:[address] [facility] CO2,TOTAL 27 22 - 29 mmol/L 06/19/2023 12:[address] [facility] ANION GAP 10 5 - 18 06/19/2023 12:[address] [facility] GLUCOSE 84 70 - 99 mg/dL 06/19/2023 12:[address] [facility] CALCIUM 8.7 8.6 - 10.0 mg/dL 06/19/2023 12:[address] [facility] BUN 9 6 - 20 mg/dL 06/19/2023 12:[address] [facility] CREATININE 0.59 0.50 - 0.90 mg/dL 06/19/2023 12:[address] [facility] BUN/CREAT RATIO 15 10 - 20 4 12:[address] [facility] eGFR >90 >90 mL/min/1.7 3m2 06/19/2023 12:[address] [facility] Comment:As of 2021, eG FR is calculated by the CKD-EPI creatinine equation without race adjustment. ??eGFR can be influenced by muscle mass, exercise, and diet. ??The reported eGFR is an estimation only and is only applicable if the renal function is stable. ALBUMIN 4.3 4.0 - 4.9 g/dL 06/19/2023 12:[address] [facility] PROTEIN,TOTAL 7.3 6.0 - 8.0 g/dL 06/19/2023 12:10 PM CDT [facility] BILIRUBIN,TOTAL 1.0 0.0 - 1.2 mg/dL 06/19/2023 12:10 PM T [facility] ALK PHOSPHATASE 235(H) 35 - 104 IU/L 06/19/2023 12:10 PM T [facility] ALT (SGPT) 51(H) 10 - 35 IU/L 06/19/2023 12:10 PM T [facility] AST (SGOT) 123(H) 10 - 35 IU/L 06/19/2023 12:10 PM T [facility] Blood BLOOD SPECIMEN / Unknown Butterfly / Unknown 06/19/2023 11:39 AM CDT 06/19/2023 11:47 AM CDT Alison Elmore COMMUNICATIONS [employer] CHEMISTRY Performing Organization Address [facility] Co de Phone Number [facility] [address] [place] [address] * (ABNORMAL) HEMOGLOBIN (06/05/2023 9:27 AM CDT) Only the most recent of5 resultswithin the time period is included. [facility] HEMOGLOBIN 9.3(L) 12.0 - 16.0 g/dL 06/05/2023 9:47 AM CDT [facility] MCV 82 80 - 100 fL 06/05/2023 9:47 AM CDT [facility] Blood BLOOD SPECIMEN / Unknown Butterfly / Unknown 06/05/2023 9:27 AM CDT 06/05/2023 9:36 AM CDT Kathy Rizzo COMMUNICATIONS [employer] HEMATOLOGY Performing Organization Address [facility]/ZIP Co de Phone Number [facility] [address] [place] [address] * POTASSIUM (06/05/2023 9:27 AM CDT) Only the most recent of3 resultswithin the time period is included. [facility] POTASSIUM 4.0 3.5 - 5.1 mmol/L 06/05/2023 10:00 AM CDT [facility] Blood BLOOD SPECIMEN / Unknown Butterfly / Unknown 06/05/2023 9:27 AM CDT 06/05/2023 9:36 AM CDT Kathy Rizzo NP CHEMISTRY Performing Organization Address [facility] de Phone Number [facility] [address] [place] [address] * (ABNORMAL) CREATININE (06/05/2023 9:27 AM CDT) Only the most recent of3 resultswithin the time period is included. [facility] eGFR >90 >90 mL/min/1.7 3m2 06/05/2023 10:00 AM CDT [facility] Comment:As of 2021, eG FR is calculated by the CKD-EPI creatinine equation without race adjustment. ??eGFR can be influenced by muscle mass, exercise, and diet. ??The reported eGFR is an estimation only and is only applicable if the renal function is stable. CREATININE 0.48(L) 0.50 - 0.90 mg/dL 06/05/2023 10:00 AM T [facility] Blood BLOOD SPECIMEN / Unknown Butterfly / Unknown 06/05/2023 9:27 AM CDT 06/05/2023 9:36 AM CDT Kathy Rizzo NP CHEMISTRY Performing Organization Address City/[facility]/ZIP Co de Phone Number [facility] [address] [place] [address] * MAGNESIUM (06/05/2023 9:27 AM CDT) Only the most recent of2 resultswithin the time period is included. [facility] MAGNESIUM 1.7 1.6 - 2.6 mg/dL 06/05/2023 10:00 AM CDT [facility] Blood BLOOD SPECIMEN / Unknown Butterfly / Unknown 06/05/2023 9:27 AM CDT 06/05/2023 9:36 AM CDT Kathy Rizzo NP CHEMISTRY Performing Organization Address City/[facility]/ZIP Co de Phone Number [facility] [address] [place] [address] * GLUCOSE METER (06/05/2023 9:13 AM CDT) Only the most recent of23 resultswithin the time period is included. [facility] GLUCOSE METER 99 65 - 100 mg/dL 06/05/2023 11:29 AM CDT [facility] Blood BLOOD SPECIMEN / Unknown 06/05/2023 9:13 AM CDT 06/05/2023 11:29 AM CDT Kathy Rizzo NP CHEMISTRY Performing Organization Address [facility] Co de Phone Number [facility] [address] [place] [address] * EKG 12 LEAD (06/04/2023 11:46 AM CDT) [facility] Interpretation Normal sinus rhythm Low voltage QRS [...] NOW QTc 442 ms BEYOND NOW P Leblanc 53 degrees BEYOND NOW R Leblanc -6 degrees BEYOND NOW T Leblanc 16 degrees BEYOND NOW 06/04/2023 11:4 6 AM CDT 06/04/2023 8:21 PM CDT Kathy Rizzo NP EKG ORD Performing Organization Address City/[facility]/ZIP Co de Phone Number [place] NOW [place], [place] * WHITE BLOOD COUNT (06/04/2023 5:50 AM CDT) Only the most recent of2 resultswithin the time period is included. [facility] WHITE BLOOD COUNT 5.1 4.5 - 11.0 thou/cu mm 06/04/2023 6:32 AM CDT [facility] Blood BLOOD SPECIMEN / Unknown Butterfly / Unknown 06/04/2023 5:50 AM CDT 06/04/2023 6:25 AM CDT Kathy Rizzo NP HEMATOLOGY Performing Organization Address [facility]/ZIP Co de Phone Number [facility] [address] [place] [address] * SODIUM (06/04/2023 5:50 AM CDT) Only the most recent of2 resultswithin the time period is included. Pathologist [facility] SODIUM 138 136 - 145 mmol/L 06/04/2023 6:51 AM CDT [facility] Blood BLOOD SPECIMEN / Unknown Butterfly / Unknown 06/04/2023 5:50 AM CDT 06/04/2023 6:25 AM CDT Kathy Rizzo NP CHEMISTRY Performing Organization Address [facility] de Phone Number [facility] [address] [place] [address] * (ABNORMAL) C-REACTIVE PROTEIN (06/03/2023 6:49 AM CDT) [facility] C-REACTIVE PROTEIN 3.5(H) <0.5 mg/dL 06/03/2023 7:36 AM CDT [facility] Blood BLOOD SPECIMEN / Unknown Butterfly / Unknown 06/03/2023 6:49 AM CDT 06/03/2023 6:53 AM CDT Rory Boyer DO CHEMISTRY Performing Organization Address [facility] Co de Phone Number [facility] [address] [place] [address] * SCAN-CARDIAC STRIP (06/02/2023 10:13 AM CDT) Scanner OTHER * (ABNORMAL) CREATININE,ISTAT (06/02/2023 6:34 AM CDT) CREATININE, POCT 0.40(L) 0.57 - 1.11 mg/dL 06/02/2023 6:36 AM CDT [facility] Comment:Caution: Patients ta jaleel Hydroxyurea have falsely increased iStat Creatinine results. Verify creatinine results ordering a Creatinine (63526.2) eGFR >90 >90 mL/min/1.7 3m2 06/02/2023 6:36 AM CDT [facility] Comment:As of 2021, eG FR is calculated by the CKD-EPI creatinine equation without race adjustment. eGFR can be influenced by muscle mass, exercise, and diet. The reported eGFR is an estimation only and is only applicable if the renal function is stable. Blood BLOOD SPECIMEN / Unknown 06/02/2023 6:34 AM CDT 06/02/2023 6:36 AM CDT Rory Boyer DO CHEMISTRY [facility] [address] [place] [id number] * SCAN-CARDIAC STRIP (06/02/2023 3:50 AM CDT) Scanner OTHER * (ABNORMAL) URINALYSIS MICROSCOPIC (06/01/2023 10:08 PM CDT) Pathologist [facility] RBC 26-50(A) 0-2, None Seen /HPF 06/02/2023 12:02 AM CDT [facility] WBC >100(A) 0-2, 3-5, None Seen /HPF 06/02/2023 12:02 AM CDT [facility] BACTERIA Many(A) None Seen, Rare, Few Bacteria/ HPF 06/02/2023 12:02 AM CDT [facility] EPITHELIAL CELLS Few None Seen, Few Epi/HPF 06/02/2023 12:02 AM CDT [facility] Mucus Present 06/02/2023 12:02 AM CDT [facility] WHITE CELL CLUMPS Present(A) (none) 06/02/2023 12:02 AM CDT [facility] Urine URINE SPECIMEN / Unknown Non-Blood / Unknown 06/01/2023 10:08 PM CDT 06/01/2023 10:[address] BERUMEN URINE [facility] [address] [place] [address] * (ABNORMAL) URINE CULTURE (06/01/2023 10:08 PM CDT) CULTURE RESULT(A) 06/05/2023 9:31 AM CDT [facility] TRAL LABORATORY CULTURE >100,000 CFU/mL Escherichia coli 06/05/2023 9:31 AM CDT [facility]OR[facility] CULTURE 10,000-50,000 CFU/mL Enterococcus faecalis 06/05/2023 9:31 AM CDT [facility] TRAL LABORATORY Urine URINE SPECIMEN / [...] NITROFURANTOIN <=16: S Lane BERUMEN MICROBIOLOG Y [facility] [address] [place] [address], [place] * (ABNORMAL) URINALYSIS W REFLEX MICROSCOPIC IF POSITIVE (06/01/2023 10:08 PM CDT) COLOR Yellow Yellow Color 06/01/2023 10:[address] [facility] CLARITY Cloudy(A) Clear Clarity 06/01/2023 10:[address] [facility] SPECIFIC GRAVITY,URINE 1.025 1.010, 1.015, 1.020, 1.025 06/01/2023 10:[address] [facility] PH,URINE 6.0 6.0, 7.0, 8.0, 5.5, 6.5, 7.5, 8.5 06/01/2023 10:[address] [facility] UROBILINOGEN, QUALITATIVE Normal Normal EU/dl 06/01/2023 10:[address] [facility] PROTEIN, URINE 30(A) Negative mg/dL 06/01/2023 10:[address] [facility] GLUCOSE, URINE Negative Negative mg/dL 06/01/2023 10:[address] [facility] KETONES,URINE Negative Negative mg/dL 06/01/2023 10:[address] [facility] BILIRUBIN,URI NE Negative Negative 06/01/2023 10:[address] [facility] OCCULT BLOOD,URINE Large(A) Negative 06/01/2023 10:[address] [facility] NITRITE Positive(A) Negative 06/01/2023 10:31 PM CDT [facility] LEUKOCYTE ESTERASE Large(A) Negative 06/01/2023 10:31 PM CDT [facility] Urine URINE SPECIMEN / Unknown Non-Blood / Unknown 06/01/2023 10:08 PM CDT 06/01/2023 10:[address] BERUMEN URINE [facility] [address] [place] [address] * XR CHEST 1 VIEW PORTABLE (06/01/2023 [...] CDT) CULTURE RESULT(A) 06/05/2023 8:50 AM CDT [facility] TR[facility] LABORATORY CULTURE 3+ Pseudomonas stutzeri 06/05/2023 8:50 AM CDT [facility] GRAM STAIN No Epithelial cells 06/05/2023 8:50 AM CDT [facility] GRAM STAIN 4+ RBCs 06/05/2023 8:50 AM CDT [facility] GRAM STAIN 2+ PMNs 06/05/2023 8:50 AM CDT [facility] GRAM STAIN 2+ Gram Negative Bacilli 06/05/2023 8:50 AM CDT [facility] TR[facility] LAB[facility] Other (Other) Non-Blood / Unknown [...] MEROPEN[place] <=0.25: S Lane BERUMEN MICROBIOLOG Y [facility] [address] [place] [address], [place] * MUSCULOSKELETAL ULTRASOUND (05/28/2023 10:00 AM CDT) [...] cellulitis Darryl Hardy MD 05/28/2023 10:00 AM [facility] Emergency Department [phone] Darryl Hardy MD PROCEDURE ORD * (ABNORMAL) RED CELL MORPHOLOGY (05/28/2023 9:28 AM CDT) ELLIPTOCYTES Moderate 05/28/2023 10:04 AM CDT [facility] TEARDROP CELLS Few 05/28/2023 10:04 AM CDT [facility] RBC COMMENT Present(A) RBC morphology appears normal, RBC morphology within normal limits for newborns. 05/28/2023 10:04 AM CDT [facility] Blood BLOOD SPECIMEN / Unknown Butterfly / Unknown 05/28/2023 9:28 AM CDT 05/28/2023 9:35 AM CDT Josi Quevedo RN HEMATOLOGY [facility] [address] [place] [address] * PLATELET ESTIMATE (05/28/2023 9:28 AM CDT) PLATELET ESTIMATE Adequate Adequate, No estimate 05/28/2023 10:04 AM T [facility] Blood BLOOD SPECIMEN / Unknown Butterfly / Unknown 05/28/2023 9:28 AM CDT 05/28/2023 9:35 AM CDT Josi Quevedo RN HEMATOLOGY Performing Organization Address [facility] Co de Phone Number [facility] [address] [place] [address] * (ABNORMAL) MANUAL DIFFERENTIAL (05/28/2023 9:28 AM CDT) % NEUTROPHILS 81.0 % 05/28/2023 10:[address] [facility] % LYMPHOCYTES 12.0 % 05/28/2023 10:[address] [facility] % MONOCYTES 4.0 % 05/28/2023 10:[address] [facility] % EOSINOPHILS 3.0 % 05/28/2023 10:[address] [facility] % BASOPHILS 0.0 % 05/28/2023 10:[address] [facility] NEUTROPHILS ABSOLUTE 5.5 1.7 - 7.0 thou/cu mm 05/28/2023 10:[address] [facility] LYMPHOCYTES ABSOLUTE 0.8(L) 0.9 - 2.9 thou/cu mm 05/28/2023 10:[address] [facility] MONOCYTES ABSOLUTE 0.3 <0.9 thou/cu mm 05/28/2023 10:[address] [facility] EOSINOPHILS ABSOLUTE 0.2 <0.5 thou/cu mm 05/28/2023 10:[address] [facility] BASOPHILS ABSOLUTE 0.0 <0.3 thou/cu mm 05/28/2023 10:[address] [facility] Blood BLOOD SPECIMEN / Unknown Butterfly / Unknown 05/28/2023 9:28 AM CDT 05/28/2023 9:35 AM CDT Josi Quevedo RN HEMATOLOGY [facility] [address] [place] [address] * TYPE AND SCREEN ONLY (05/28/2023 9:28 AM CDT) ABORH O Rh Positive 05/28/2023 10:20 AM CDT [facility] BLOOD BANK ANTIBODY SCREEN Negative Negative 05/28/2023 10:20 AM T [facility] BLOOD BANK SPECIMEN EXPIRATION DATE/TIME 05/31/23 23:59 05/28/2023 10:20 AM T [facility] BLOOD BANK Blood BLOOD SPECIMEN / Unknown Butterfly / Unknown 05/28/2023 9:28 AM CDT 05/28/2023 9:35 AM CDT Brian Ed Triage BLOOD BANK Performing Organization Address [facility] Co de Phone Number [facility] BLOOD BANK [address] [place] [address] * (ABNORMAL) HEPATIC FUNCTION PANEL (05/28/2023 9:28 AM CDT) ALBUMIN 4.6 4.0 - 4.9 g/dL 05/28/2023 9:[address] [facility] PROTEIN,TOTAL 7.9 6.0 - 8.0 g/dL 05/28/2023 9:[address] [facility] BILIRUBIN,TOTAL 0.5 0.0 - 1.2 mg/dL 05/28/2023 9:[address] [facility] BILIRUBIN,DIRECT <0.2 0.0 - 0.3 mg/dL 05/28/2023 9:[address] [facility] BILIRUBIN,INDIRE CT 05/28/2023 9:[address] [facility] Comment:Unable to calculate, Direct Bili <0.2 ALK PHOSPHATASE 144(H) 35 - 104 IU/L 05/28/2023 9:[address] [facility] ALT (SGPT) 6(L) 10 - 35 IU/L 05/28/2023 9:[address] [facility] AST (SGOT) 19 10 - 35 IU/L 05/28/2023 9:[address] [facility] Blood BLOOD SPECIMEN / Unknown Butterfly / Unknown 05/28/2023 9:28 AM CDT 05/28/2023 9:35 AM CDT Darryl Hardy MD CHEMISTRY [facility] [address] [place] [address] * (ABNORMAL) Basic Metabolic Panel (05/28/2023 9:28 AM CDT) Only the most recent of2 resultswithin the time period is included. SODIUM 142 136 - 145 mmol/L 05/28/2023 9:[address] [facility] POTASSIUM 4.0 3.5 - 5.1 mmol/L 05/28/2023 9:[address] [facility] CHLORIDE 104 98 - 107 mmol/L 05/28/2023 9:[address] [facility] CO2,TOTAL 28 22 - 29 mmol/L 05/28/2023 9:[address] [facility] ANION GAP 10 5 - 18 05/28/2023 9:[address] [facility] GLUCOSE 94 70 - 99 mg/dL 05/28/2023 9:[address] [facility] CALCIUM 10.1(H) 8.6 - 10.0 mg/dL 05/28/2023 9:[address] [facility] BUN 6 6 - 20 mg/dL 05/28/2023 9:[address] [facility] CREATININE 0.53 0.50 - 0.90 mg/dL 05/28/2023 9:[address] [facility] BUN/CREAT RATIO 11 10 - 20 9:[address] [facility] eGFR >90 >90 mL/min/1.7 3m2 05/28/2023 9:55 AM CDT [facility] Comment:As of 2021, eG FR is calculated by the CKD-EPI creatinine equation without race adjustment. ??eGFR can be influenced by muscle mass, exercise, and diet. ??The reported eGFR is an estimation only and is only applicable if the renal function is stable. Blood BLOOD SPECIMEN / Unknown Butterfly / Unknown 05/28/2023 9:28 AM CDT 05/28/2023 9:35 AM CDT Josi Quevedo RN CHEMISTRY Performing Organization Address [facility]/State/ZIP Co de Phone Number [facility] [address] [place] [address] * PATH TISSUE EXAM (05/09/2023 10:20 AM CDT) Case Report Pathology Report ?Case: [id number] ? Authorizing Provider: ??Alfredo Arce MD ?Collected: ? 05/09/2023 1020 ? Ordering Location: ? [facility] ?Received: ?05/09/2023 1348 ? [facility] ? Pathologist: ? Roddy Wright MD ? Specimens: ?? A) - Left Breast ? B) - Right Breast ? 05/11/2023 11:51 AM CDT [facility] Final Diagnosis A) LEFT BREAST, REDUCTION MAMMOPLASTY: 1. Benign breast tissue with proliferative fibrocystic change 2. Negative for atypia and malignancy B) RIGHT BREAST, REDUCTION MAMMOPLASTY: 1. Benign breast tissue with proliferative fibrocystic change 2. Negative for atypia and malignancy 05/11/2023 11:51 AM CDT [facility] Clinical Information Bilateral disabling macromastia 05/11/2023 11:51 AM CDT [facility] Gross Description A) Received in formalin, labeled with the patient's name and left breast, is a 1057 g, 22.0 x 19.0 x 5.0 cm aggregate of yellow-beltrna fibrofatty tissue and beltran smooth unremarkable skin. The specimen is serially sectioned revealing yellow-beltran cut surfaces consisting of approximately 70% yellow adipose tissue and 30% beltran fibrous tissue. No discrete lesions are noted. [employer] sections are submitted in 3 cassettes. Time [...] fibrous tissue. No discrete lesions are noted. Upholstery Mechanic sections are submitted in 3 cassettes. Time removed from patient: 1049 Time placed in formalin: 1134 Date removed and placed in formalin: 05/09/2023 The specimen was fixed in formalin for a minimum of 6 hours and not longer than 72 hours. KMN 05/09/2023 05/11/2023 11:51 AM CDT [facility] Microscopic Description The final diagnosis is based on microscopic examination of appropriate sections of all specimens. 05/11/2023 11:51 AM CDT [facility] Additional Information Interpreted at [facility] - [address] [place] [address] 05/11/2023 11:51 AM CDT [facility] Tissue (Left Breast) 05/09/2023 10:20 AM CDT 05/09/2023 1:48 PM CDT Tissue specimen (specimen) (Right Breast) 05/09/2023 10:49 AM CDT 05/09/2023 1:48 PM CDT Alfredo Arce MD PATHOLOGY/CYTOLOGY [facility] [address] [place] [address], * [facility] MASK PR5 (05/09/2023 10:08 AM [...] - 199 mg/dL 11/30/2022 11:51 PM CDT [facility] Comment: Cholesterol, Total Reference Ranges Desirable <200 mg/dL Borderline 200-239 mg/dL High >=240 mg/dL TRIGLYCERIDES 149 <150 mg/dL 11/30/2022 11:51 PM CDT [facility] HDL CHOLESTEROL 36(L) >40 mg/dL 11:51 PM CDT [facility] NON-HDL CHOLESTEROL 124 <145 mg/dl 11/30/2022 11:51 PM CDT [facility] CHOL/HDL RATIO 4.44 <4.50 11/30/2022 11:51 PM CDT [facility] LDL CHOLESTEROL 94 <=130 mg/dL 11/30/2022 11:51 PM CDT [facility] VLDL CHOLESTEROL 30 <=30 mg/dL 11/30/2022 11:51 PM CDT [facility] PROVIDER ORDERED STATUS RANDOM 11/30/2022 11:51 PM CDT [facility] Blood BLOOD SPECIMEN / Unknown Butterfly / Unknown 11/30/2022 4:09 PM CDT 11/30/2022 4:11 PM CDT Laurence BERUMEN CHEMISTRY [facility] [address] [place] [address], [place] * XR MAMMO KAYLEE BILAT SCREEN (06/07/2022 [...] care provider. XR MAMMO KAYLEE BILAT SCREEN [[id number]] CLINICAL HISTORY: ??This is an asymptomatic 47 [...] calcifications or areas of architectural distortion. Laurence BERUMEN MAMMO * ANTI HCV (09/20/2021 11:11 PM CDT) HEPATITIS C ANTIBODY Non-React carly Non-React carly 09/23/2021 4:44 PM CDT [facility] Comment:Antibodies to HCV no t detected; does not exclude the possibility of exposure to HCV. Blood BLOOD SPECIMEN / Unknown Venipuncture / Unknown 09/20/2021 11:11 PM CDT 09/20/2021 11:15 PM CDT Bela Chávez MD SEND OUTS [facility] [address] [place] [address], [place] * ANTI HIV 1/2 (09/20/2021 11:11 PM CDT) HIV-1/HIV-2 ANTIBODY Non-Reacti ve Non-Reacti ve 09/23/2021 6:18 PM CDT [facility] Comment:HIV-1 p24 and HIV-1/ HIV-2 Ab not detected. Blood BLOOD SPECIMEN / Unknown Venipuncture / Unknown 09/20/2021 11:11 PM CDT 09/20/2021 11:15 PM CDT Bela Chávez MD SEND OUTS [facility] 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 Healthcare Directive 12/15/2022 023 POLST [...] Intubation Drug Protocol: No Restrictions Care Teams Jacquard Card Lacer Relationship Specialty Start Date End Date Laurence Mujica PA [address] [place] [address] PCP - General Physician Occupational Medicine Officer 07/16/14 Yumiko Garcia NP [address] [place] [address] Psychiatry Nurse Practitioner 04/07/16 Nga White MD [address] [facility] [place] [address] Surgery - Urology 06/15/22 [facility] [address] [address] 04/30/23 [facility] [address] [place] [address] 04/30/23
== END 2023-07-11 10:38 | disposition home or self-care (01) ==
LOC: WOUND 10:37
PROVIDERS: PCP Physician Assistant; Visit Provider Surgery
DX: T81.31XA Disruption of external operation (surgical) wound, not elsewhere classified, initial encounter (principal); E11.628 Type 2 diabetes mellitus with other skin complications; G35 Multiple sclerosis; Z79.84 Long term (current) use of oral hypoglycemic drugs
CPT/HCPCS: 97597

== ENCOUNTER 2023-07-18 10:31 | Outpatient (CLI) | payer MEDICARE, MEDICAID, SELFPAY ==
--- OUTSIDE RECORDS SUMMARY | 2023-07-18 10:33 | XMS_ITS | Encounter Summary ---
Author Organization [facility] Address [address] [place] [address] Care Team Providers Care Shank Rander Name Role Phone Elsewhere, Pcp Primary Care Provider Unavailabl e Reason for Visit * Reason Onset Date Comments Form Review 05/14/2023 [place] [id number] E ncounter Encounter Details Date Type Department Care Team (Latest Contact Info) Description 05/14/2023 Clinical Communication Department of Neurology in [place], [place] [address] [place] [address] Juan Jose Martin M.B., Ch.B. [address] [place] [id number] Form Review ([address] Encounter) Social History Tobacco Use Types Packs/Day Years Used Date Smoking Tobacco: Light Smoker Smokeless Tobacco: Never Comments:Smokes more when st ressed [facility] Utilities Answer Date Recorded In the past [...] declined 01/25/2022 How often do you attend adventism or sabianism serv ices? Never 01/25/2022 Do you belong to any clubs o r organizations such as adventism groups, unions, fraternal or athletic groups, or [...] medical care, and heating? Very hard 01/25/2022 [facility] of Occupat ional Health - Occupational Stress [...] place to sleep or slept in a care home (including now)? No 01/25/2022 Nutrition Answer [...] Sex Assigned at Female 01/25/2022 2:30 PM FURNACE BUILDER Gender Identity Female 01/25/2022 2:30 PM FURNACE BUILDER Sexual Orientation Straight 01/25/2022 2: 30 PM FURNACE BUILDER documented as of this encounter Miscellaneous Notes * Telephone Encounter - Raisa Jaquez L.P.N. - 05/17/2023 10:16 AM CDT Form faxed back to facility and sent for scanning. * Telephone Encounter - Raisa Jaquez L.P.N. - 05/14/2023 10:11 AM CDT Form was emailed to Dr. Martin for electronic review/signature. WATCH GUARD GATE: [facility] PHONE NUMBER: [phone] [facility] En[facility] INSTRUCTIONS: Fax information to [phone] documented in this encounter Plan of Treatment Not on file documented as of this encounter Visit Diagnoses Not on filedocumented in this encounter Care Teams Shank Rander Relationship Specialty Start Date End Date Elsewhere, Pcp PCP - General Family Medicine 12/19/20 documented as of this encounter
--- OUTSIDE RECORDS SUMMARY | 2023-07-18 10:33 | XMS_ITS | Referral Summary ---
Author Organization [facility] Address [address] [place] [address] Care Team Providers Care Demolition Engineer Name Role Phone Elsewhere, Pcp Primary Care Provider Unavailabl e Source Comments Patient records contain information from all sites at [facility]. For routine questions regarding patient records, call [phone] during business hours, M-F 8:00 AM - 5:00 PM Central Time. Record requests for emergency care only can be directed to [phone] at any time.[facility] Encounters Date Type Department Care Team Description 05/14/2023 Clinical Communication Department of Neurology in [address] [address] Juan Jose Martin M.B., Ch.B. Form Review ([facility] F2F Encounter) 04/25/2023 Clinical Communication Department of Neurology in [address] [address] Juan Jose Martin M.B., Ch.B. External PT order 04/24/2023 9:30 AM CDT Office Visit Department of Neurology in [address] [address] Juan Jose Martin M.B., Ch.B. Multiple Sclerosis [...] when stressed [facility] Utilities Answer Date Recorded In the past [...] declined 01/25/2022 How often do you attend oriental orthodox or baptist serv ices? Never 01/25/2022 Do you belong to any clubs o r organizations such as oriental orthodox groups, unions, fraternal or athletic groups, or [...] medical care, and heating? Very hard 01/25/2022 [facility] [place] of Occupat ional Health - Occupational Stress [...] place to sleep or slept in a penitentiary (including now)? No 01/25/2022 Nutrition Answer Date [...] Sex Assigned at Female 01/25/2022 2:30 PM DIRT CONTRACTOR Gender Identity Female 01/25/2022 2:30 PM DIRT CONTRACTOR Sexual Orientation Straight 01/25/2022 2: 30 PM DIRT CONTRACTOR Last Filed Vital Signs Vital Sign Reading Time Taken Comments Blood Pressure 96/66 04/24/2023 9:27 AM CDT Pulse 73 04/24/2023 9:27 AM CDT Temperature 36.6 ??C (97.9 ??F) 12/19/2020 6:19 AM CS T Respiratory Rate 16 12/19/2020 6:19 AM DIRT CONTRACTOR Oxygen Saturation 94% 12/19/2020 6:19 AM DIRT CONTRACTOR Inhaled Oxygen Concentration - - Weight 104 kg (228 lb 13.4 oz) 12/28/2020 8:51 A M DIRT CONTRACTOR Height 175.3 cm (5' 9) 12/17/2020 10:53 PM DIRT CONTRACTOR Body Mass Index 33.79 12/17/2020 10:53 PM DIRT CONTRACTOR Plan of Treatment Not on file Medical Devices Implanted Type Area Consulting Services Project Manager Device Identifier Shelf Expiration Date Model / [...] HORMONE-SENSITIVE (S-TSH), S Routine 03/11/2023 4:45 AM DIRT CONTRACTOR EXTI LIPID PANEL W REFLEX MEASURED LDL Routine 11/30/2022 4:09 PM CDT BI BREAST SCREENING BILATERAL WITH TOMOSYNTHESIS Routine 06/07/2022 9:19 AM CDT OPHTHALMOLOGY IMAGE EXAM Routine 03/26/2015 12:00 AM DIRT CONTRACTOR CHRONIC VIRAL HEPATITIS PROFILE Routine 04/28/2014 6:41 PM CDT HIV-1/-2 AG AND AB SCREEN Routine 04/28/2014 6:41 PM CDT HEMOGLOBIN A1C, B Routine 04/27/2014 1:2 2 PM CDT from Last 3 Months or Most Recently Relevant to Health Maintenance Results * OPHTHALMOLOGY IMAGE EXAM (03/26/2015 12:00 AM DIRT CONTRACTOR) Anatomical Region Laterality Modality Other 03/26/2015 Addenda Addendum by ProviderJames M.D. on 03/26/2015 12:00 AM DIRT CONTRACTOR OPH^^^MCR Eyes Visual Landrum 03/26/2015 00:00:00 Historical Provider IMG NON RAD IMAGING PROCEDURES * HIV-1/-2 Ag and Ab Screen (04/28/2014 6:41 PM CDT) Pathologist [facility] HIV-1/-2 Ag and Ab Screen, S Negative Negative [facility] Comment: Negative result does not rule out HIV infection. If ? acute HIV infection is suspected in a high-risk ? individual, submit plasma specimen for HIV-1 RNA ? quantification test (HIVQU) and/or HIV-2 DNA/RNA ? test (FHV2Q). ? 04/28/2014 6:41 PM CDT 04/28/2014 6:41 PM CDT Cirilo Mendez M.D. LAB MICROB IOLOGY - BLOOD ORDERABLES [facility] [address] * Chronic Hepatitis Profile (04/28/2014 6:41 PM CDT) HBs Antigen, S Negative Negative [facility] HBc Total Ab, S Negative Negative [facility] HBs Antibody,S Negative Unvaccinated : Negative; Vaccinated: Positive [facility] Comment:Patient is presumed to be not immune to infection with HBV. HBs Antibody, Quantitative, S <5.0 Unvaccinated : <5.0; Vaccinated: >=12.0 MIU/ML [facility] HCV Ab, S Negative Negative [facility] Comment:Pxfhke-rb-hwznbb rat io is <1.00. 04/28/2014 6:41 PM CDT 04/28/2014 6:41 PM CDT Cirilo Mendez M.D. LAB MICROB IOLOGY - BLOOD ORDERABLES [facility] [address] * Hemoglobin A1c (04/27/2014 1:22 PM CDT) Hemoglobin A1c, B 5.1 4.0 - 6.0 % [facility] 04/27/2014 1:22 PM CDT 04/27/2014 1:22 PM CDT Db Sousa M.D., M.A. LAB BLOOD ADD -ON Performing Organization Address City/[facility]/ZIP Co de Phone Number [facility] [address] from Last 3 Months or Most Recently Relevant to Health Maintenance Advance Directives For more information, please contact: [phone] * Full Code (Latest Code Status on File) Date Activated Date Inactivated Comments 12/18/2020 1:35 AM 12/19/2020 3:25 PM Question Answer Comments Full Code: Discussed Care Teams Demolition Engineer Relationship Specialty Start Date End Date Elsewhere, Pcp PCP - General Family Medicine 12/19/20
--- OUTSIDE RECORDS SUMMARY | 2023-07-18 10:33 | XMS_ITS | Clinical Summary ---
Author Organization [facility] Address [address] [place] [address] Care Team Providers Care Certified Caregiver Name Role Phone Elsewhere, Pcp Primary Care Provider Unavailabl e Source Comments Patient records contain information from all sites at [facility]. For routine questions regarding patient records, call [phone] during business hours, M-F 8:00 AM - 5:00 PM Central Time. Record requests for emergency care only can be directed to [phone] at any time.[facility] Allergies Active Allergy Reactions Criticality Noted Date [...] 05/14/2023 Clinical Communication Department of Neurology in [address] [address] Juan Jose Martin M.B., Ch.B. Form Review ([facility] F2F Encounter) 04/25/2023 Clinical Communication Department of Neurology in [address] [address] Juan Jose Martin M.B., Ch.B. External PT order 04/24/2023 9:30 AM CDT Office Visit Department of Neurology in [address] [address] Juan Jose Martin M.B., Ch.B. Multiple Sclerosis [...] Given: Not Answered Comments:Smokes more when stressed [facility] Utilities Answer Date Recorded In [...] declined 01/25/2022 How often do you attend mandaeism or synagogue serv ices? Never 01/25/2022 Do you belong to any clubs o r organizations such as mandaeism groups, unions, fraternal or athletic groups, or [...] medical care, and heating? Very hard 01/25/2022 [facility] of Occupat ional Health - Occupational Stress [...] place to sleep or slept in a fci (including now)? No 01/25/2022 Nutrition Answer Date [...] Sex Assigned at Female 01/25/2022 2:30 PM STITCHDOWN TOE FORMER Gender Identity Female 01/25/2022 2:30 PM STITCHDOWN TOE FORMER Sexual Orientation Straight 01/25/2022 2: 30 PM STITCHDOWN TOE FORMER Last Filed Vital Signs Vital Sign Reading Time Taken Comments Blood Pressure 96/66 04/24/2023 9:27 AM CDT Pulse 73 04/24/2023 9:27 AM CDT Temperature 36.6 ??C (97.9 ??F) 12/19/2020 6:19 AM CS T Respiratory Rate 16 12/19/2020 6:19 AM STITCHDOWN TOE FORMER Oxygen Saturation 94% 12/19/2020 6:19 AM STITCHDOWN TOE FORMER Inhaled Oxygen Concentration - - Weight 104 kg (228 lb 13.4 oz) 12/28/2020 8:51 A M STITCHDOWN TOE FORMER Height 175.3 cm (5' 9) 12/17/2020 10:53 PM STITCHDOWN TOE FORMER Body Mass Index 33.79 12/17/2020 10:53 PM STITCHDOWN TOE FORMER Plan of Treatment Health Maintenance Due Date [...] this topic Medical Devices Implanted Type Area Bibliographic Services Specialist Device Identifier Shelf Expiration Date Model / [...] HORMONE-SENSITIVE (S-TSH), S Routine 03/11/2023 4:45 AM STITCHDOWN TOE FORMER EXTI LIPID PANEL W REFLEX MEASURED LDL Routine 11/30/2022 4:09 PM CDT BI BREAST SCREENING BILATERAL WITH TOMOSYNTHESIS Routine 06/07/2022 9:19 AM CDT OPHTHALMOLOGY IMAGE EXAM Routine 03/26/2015 12:00 AM STITCHDOWN TOE FORMER CHRONIC VIRAL HEPATITIS PROFILE Routine 04/28/2014 6:41 PM CDT HIV-1/-2 AG AND AB SCREEN Routine 04/28/2014 6:41 PM CDT HEMOGLOBIN A1C, B Routine 04/27/2014 1:2 2 PM CDT from Last 3 Months or Most Recently Relevant to Health Maintenance Results * OPHTHALMOLOGY IMAGE EXAM (03/26/2015 12:00 AM STITCHDOWN TOE FORMER) Anatomical Region Laterality Modality Other 03/26/2015 Addenda Addendum by ProviderJames M.D. on 03/26/2015 12:00 AM STITCHDOWN TOE FORMER OPH^^^MCR Eyes Visual Landrum 03/26/2015 00:00:00 Historical Provider IMG NON RAD IMAGING PROCEDURES * HIV-1/-2 Ag and Ab Screen (04/28/2014 6:41 PM CDT) [facility] HIV-1/-2 Ag and Ab Screen, S Negative Negative [facility] Comment: Negative result does not rule out HIV infection. If ? acute HIV infection is suspected in a high-risk ? individual, submit plasma specimen for HIV-1 RNA ? quantification test (HIVQU) and/or HIV-2 DNA/RNA ? test (FHV2Q). ? 04/28/2014 6:41 PM CDT 04/28/2014 6:41 PM CDT Cirilo Mendez M.D. LAB MICROB IOLOGY - BLOOD ORDERABLES [facility] [address] [place] [address], [facility] * Chronic Hepatitis Profile (04/28/2014 6:41 PM CDT) HBs Antigen, S Negative Negative [facility] HBc Total Ab, S Negative Negative [facility] HBs Antibody,S Negative Unvaccinated : Negative; Vaccinated: Positive [facility] Comment:Patient is presumed to be not immune to infection with HBV. HBs Antibody, Quantitative, S <5.0 Unvaccinated : <5.0; Vaccinated: >=12.0 MIU/ML [facility] HCV Ab, S Negative Negative [facility] Comment:Urjaew-kv-gobovb rat io is <1.00. 04/28/2014 6:41 PM CDT 04/28/2014 6:41 PM CDT Cirilo Mendez M.D. LAB MICROB IOLOGY - BLOOD ORDERABLES [facility] [address] * Hemoglobin A1c (04/27/2014 1:22 PM CDT) Hemoglobin A1c, B 5.1 4.0 - 6.0 % [facility] 04/27/2014 1:22 PM CDT 04/27/2014 1:22 PM CDT Db Sousa M.D., M.A. LAB BLOOD ADD -ON Performing Organization Address City/[facility]/ZIP Co de Phone Number [facility] [address] from Last 3 Months or Most Recently Relevant to Health Maintenance Advance Directives For more information, please contact: [phone] * Full Code (Latest Code Status on File) Date Activated Date Inactivated Comments 12/18/2020 1:35 AM 12/19/2020 3:25 PM Question Answer Comments Full Code: Discussed Care Teams Certified Caregiver Relationship Specialty Start Date End Date Elsewhere, Pcp PCP - General Family Medicine 12/19/20
--- OUTSIDE RECORDS SUMMARY | 2023-07-18 10:33 | XMS_ITS | Patient Health Record ---
Author Organization [facility] Address [address] [place] [address] [address] [place] [address] Care Team Providers Care Carton Repairer Name Role Phone Laurence Mujica Primary Care Provider UnavailDavid Tripathi Unavailable [phone] Raymond Jurado DO Unavailable Unavailable Victor Hugo Wheat Unavailable [phone] Anton Griffin Unavailable [phone] Rod Golden Unavailable [phone] Fabian Walsh Unavailable [phone] ALLERGIES Allergen (clinical drug ingredient) Drug/Non Drug Allergy documented on EMR Reaction Allergy Type Onset Date Status fentanyl Fentanyl Hallucinations Drug Allergy Ac tive RESULTS Component Value Reference Range Notes Urine toxicology Reviewed date:11/14/2022 03:40:36 PM Interpretation:See Results Performing Lab: Notes/Report: See Results CARLOS Buprenophine OPI 300 0 AMP Ethanol MET Creatinine MDMA pH Specific Reinholds BAR BZO OXY See Results MTD Urine toxicology Reviewed date:11/14/2022 03:40:36 PM Interpretation:See Results Performing Lab: Notes/Report: See Results CARLOS Buprenophine OPI 300 0 AMP Ethanol MET Creatinine MDMA pH Specific Reinholds BAR BZO OXY See Results MTD Urine toxicology Reviewed date:08/31/2022 02:01:33 PM Interpretation:See Results Performing Lab: Notes/Report: See Results CARLOS Buprenophine OPI 300 1000 AMP Ethanol MET Creatinine MDMA pH Specific Reinholds BAR BZO OXY See Results MTD Urine toxicology Reviewed date:08/31/2022 02:01:33 PM Interpretation:See Results Performing Lab: Notes/Report: See Results CARLOS Buprenophine OPI 300 1000 AMP Ethanol MET Creatinine MDMA pH Specific Reinholds BAR BZO OXY See Results MTD Urine toxicology Reviewed date:03/07/2023 03:21:55 PM Interpretation:See Results Performing Lab: Notes/Report: See Results CARLOS Buprenophine OPI 300 1000 AMP Ethanol MET Creatinine MDMA pH Specific Reinholds BAR BZO OXY See Results MTD Urine toxicology Reviewed date:05/21/2023 12:21:59 PM Interpretation:See Results Performing Lab: Notes/Report: See Results CARLOS Buprenophine OPI 300 0 AMP Ethanol MET Creatinine MDMA pH Specific Reinholds BAR BZO OXY See Results MTD Urine toxicology Reviewed date:05/21/2023 12:21:59 PM Interpretation:See Results Performing Lab: Notes/Report: See Results CARLOS Buprenophine OPI 300 0 AMP Ethanol MET Creatinine MDMA pH Specific Reinholds BAR BZO OXY See Results MTD REASON [...] dependence, uncomplicated (F11.20) Active confirmed Opioid dependence (74304832) Problem Personality disorder, unspecified (F60.9) 9 Active confirmed Unspecified Personality Disorder; rule out mixed ( borderline, dependent, negativistic, explosive traits); rule out organic (63449472) Problem Other chronic pain (G89.29) Active confirmed Chronic pain (79931002) Problem Rheumatoid arthritis, unspecified (M06.9) Active confirmed Rheumatoid arthritis (93283972) Problem Systemic lupus erythematosus, unspecified (M32.9) Active confirmed Systemic lupus erythematosus (97367649) Problem Pain in leg, unspecified (M79.606) Active confirmed Pain in limb (99703502) Problem Fibromyalgia (M79.7) Active confirmed Fibromyalgia (882161511) VITAL SIGNS Blood pressure diastolic 70 mm Hg 07/04/2023 Height 69 in 07/04/2023 Blood pressure systolic 112 mm Hg 07/04/2023 Weight 187 lbs 06/06/2023 BMI 27.61 kg/m2 06/06/2023 Encounters Encounter Location Date Provider Diagnosis [address] [facility] [address] [place] [address] 08/01/2022 Anton Bolick Pain in leg, unspecified M79.606 ; Fibromyalgia M79.7 ; Other chronic pain G89.29 ; Opioid dependence, uncomplicated F11.20 and 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.891 [facility] [address] [place] [address] 08/22/2022 Victor Hugo Wheat [address] [facility] [address] [place] [address] 08/30/2022 Anton Bolick Pain in leg, unspecified M79.606 ; Fibromyalgia M79.7 and Other chronic pain G89.29 [address] [facility] [address] [place] [address] 09/27/2022 Anton Bolick Pain in leg, unspecified M79.606 ; Fibromyalgia M79.7 and Other chronic pain G89.29 [address] [facility] [address] [place] [address] 10/25/2022 Anton Bolick Pain in leg, unspecified M79.606 ; Fibromyalgia M79.7 ; Other chronic pain G89.29 ; 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.891 and Opioid dependence, uncomplicated F11.20 [facility] [address] [place] [address] 10/26/2022 Anton Bolick Other chronic pain G89.29 [address] [facility] [address] [place] [address] 11/21/2022 Anton Bolick Pain in leg, unspecified M79.606 ; Fibromyalgia M79.7 and Other chronic pain G89.29 [address] [facility] [address] [place] [address] 12/20/2022 Anton Bolick Pain in leg, unspecified M79.606 ; Fibromyalgia M79.7 and Other chronic pain G89.29 [facility] [address] [place] [address] [address] [place] [address] 12/25/2022 Anton Bolick Other chronic pain G89.29 [address] [facility] [address] [place] [address] 01/16/2023 Anton Bolick Pain in leg, unspecified M79.606 ; Fibromyalgia M79.7 and Other chronic pain G89.29 [address] [facility] [address] [place] [address] 2023 Anton Bolick Pain in leg, unspecified M79.606 ; Fibromyalgia M79.7 ; Other chronic pain G89.29 ; FPC (current) use of opiate analgesic Z79.891 ; Opioid dependence, uncomplicated F11.20 and Encounter for screening for other disorder Z13.89 [facility] [address] [place] [address] [address] [place] [address] 2023 Anton Bolick [address] [facility] [address] [place] [address] 02/01/2023 Fabian Walsh [address] [facility] [address] [place] [address] 02/06/2023 Anton Bolick Pain in leg, unspecified M79.606 ; Fibromyalgia M79.7 ; Other chronic pain G89.29 ; FPC (current) use of opiate analgesic Z79.891 ; Opioid dependence, uncomplicated F11.20 and Encounter for screening for other disorder Z13.89 [facility] [address] [facility] [address] [place] [address] 02/06/2023 Anton Bolick [address] [facility] [address] [place] [address] 02/21/2023 Anton Bolick [address] [facility] [address] [place] [address] 03/07/2023 Anton Bolick Pain in leg, unspecified M79.606 ; Fibromyalgia M79.7 ; Other chronic pain G89.29 ; 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.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 ; Opioid dependence, uncomplicated F11.20 and Encounter for screening for other disorder Z13.89 [address] [facility] [address] [place] [address] 03/08/2023 Rod Golden Pain in leg, unspecified M79.606 ; Fibromyalgia M79.7 and Other chronic pain G89.29 [address] [facility] [address] [place] [address] 03/13/2023 Anton Bolick Pain in leg, unspecified M79.606 ; Fibromyalgia M79.7 and Other chronic pain G89.29 [address] [facility] [address] [place] [address] 04/10/2023 Anton Bolick Fibromyalgia M79.7 ; Pain in leg, unspecified M79.606 and Other chronic pain G89.29 [address] [facility] [address] [place] [address] 05/08/2023 Anton Bolick Fibromyalgia M79.7 ; Pain in leg, unspecified M79.606 ; Other chronic pain G89.29 ; FPC (current) use of opiate analgesic Z79.891 and Opioid dependence, uncomplicated F11.20 [address] [facility] [address] [place] [address] 05/09/2023 Anton Griffin [facility] [address] [facility] [address] [place] [address] 05/11/2023 Anton Griffin [address] [facility] [address] [place] [address] 06/06/2023 Anton Bolick Fibromyalgia M79.7 ; Pain in leg, unspecified M79.606 and Other chronic pain G89.29 [address] [facility] [address] [place] [address] 07/04/2023 Anton Bolcampbell Other chronic pain G89.29 and Pain in leg, unspecified M79.606 ASSESSMENTS Encounter Date Diagnosis Assessment Notes Treatment Notes Treatment Clinical Notes 08/01/2022 Pain in leg, unspecified (ICD-10 - M79.606) 08/30/2022 Pain in leg, unspecified (ICD-10 - M79.606) 10/26/2022 Other chronic pain (ICD-10 - G89.29) 01/16/2023 Pain in leg, unspecified (ICD-10 - M79.606) 02/06/2023 Pain in leg, unspecified (ICD-10 - M79.606) 03/07/2023 Pain in leg, unspecified (ICD-10 - M79.606) 03/08/2023 Pain in leg, unspecified (ICD-10 - M79.606) 03/13/2023 Pain in leg, unspecified (ICD-10 - M79.606) 05/08/2023 Pain in leg, unspecified (ICD-10 - M79.606) 05/08/2023 Fibromyalgia (ICD-10 - M79.7) 06/06/2023 Fibromyalgia (ICD-10 - M79.7) 07/04/2023 Other chronic pain (ICD-10 - G89.29) Mariana returns to clinic today for a follow up evaluation regarding her chronic dispersed body pain. I have reviewed the [place] [employer] database and did not find any inconsistencies. [...] 12/25/2022 Other chronic pain (ICD-10 - G89.29) 12/20/2022 Pain in leg, unspecified (ICD-10 - M79.606) 11/21/2022 Pain in leg, unspecified (ICD-10 - M79.606) 10/25/2022 Pain in leg, unspecified (ICD-10 - M79.606) 09/27/2022 Pain in leg, unspecified (ICD-10 - M79.606) 04/10/2023 Pain in leg, unspecified (ICD-10 - M79.606) 04/10/2023 Fibromyalgia (ICD-10 - M79.7) 2023 Pain in leg, unspecified (ICD-10 - M79.606) 2023 Fibromyalgia (ICD-10 - M79.7) 04/10/2023 Other chronic pain (ICD-10 - G89.29) Mariana returns to clinic today for a follow up evaluation regarding her chronic knees to feet pain. I have reviewed the [place] [employer] database and did not find any inconsistencies. [...] with any questions, problems or concerns. 09/27/2022 Fibromyalgia (ICD-10 - M79.7) 10/25/2022 Fibromyalgia (ICD-10 - M79.7) 06/06/2023 Pain in leg, unspecified (ICD-10 - M79.606) 11/21/2022 Fibromyalgia (ICD-10 - M79.7) 12/20/2022 Fibromyalgia (ICD-10 - M79.7) 03/13/2023 Fibromyalgia (ICD-10 - M79.7) 05/08/2023 Other chronic pain (ICD-10 - G89.29) Mariana returns to clinic today for a follow up evaluation regarding her chronic pain. I have reviewed the [facility] database and did not find any [...] with any questions, problems or concerns. 03/08/2023 Fibromyalgia (ICD-10 - M79.7) 03/07/2023 Fibromyalgia (ICD-10 - M79.7) 02/06/2023 Fibromyalgia (ICD-10 - M79.7) 01/16/2023 Fibromyalgia (ICD-10 - M79.7) 08/30/2022 Fibromyalgia (ICD-10 - M79.7) 08/01/2022 Fibromyalgia (ICD-10 - M79.7) 08/01/2022 Other chronic pain (ICD-10 - G89.29) Mariana is a 47 year old female who returns to clinic today for follow up of chronic dispersed body pain. I have reviewed the [place] [employer] database and did not find any inconsistencies. [...] dispersed body pain. I have reviewed the [place] [employer] database and did not find any inconsistencies. [...] dispersed body pain. I have reviewed the [place] [employer] database and did not find any inconsistencies. [...] 02/06/2023 Other chronic pain (ICD-10 - G89.29) 03/13/2023 Other chronic pain (ICD-10 - G89.29) Mariana returns to clinic today for a follow up evaluation regarding her chronic knees to feet pain. I have reviewed the [place] [employer] database and did not find any inconsistencies. [...] 03/07/2023 Other chronic pain (ICD-10 - G89.29) 03/08/2023 Other chronic pain (ICD-10 - G89.29) Mariana returns to clinic today for a follow up evaluation regarding her chronic pain. I have reviewed the [facility] database and we discussed her current symptoms and medications. Due to her recent procedure and [facility] treatment, Mariana has been prescribed sufficient pain medication for the time being. I have obtained ROIs to [facility] and the [facility] for further evaluation of her most recent treatment history. Otherwise she will follow up in a week to further discuss medication management. This treatment plan was reviewed with Mariana, and she was agreeable. Plan:1. BRITNEY to [facility] and [facility]2. Continue Oxycodone 20mg BID3. Follow up in [...] with any questions, problems or concerns. 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 I have reviewed the [place] [employer] database and did not find any inconsistencies. [...] dispersed body pain. I have reviewed the [facility] database and did not find any [...] dispersed body pain. I have reviewed the [facility] database and did not find any [...] dispersed body pain. I have reviewed the [facility] database and did not find any [...] dispersed body pain. I have reviewed the [facility] database and did not find any [...] dispersed body pain. I have reviewed the [facility] database and did not find any [...] with any questions, problems or concerns. 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 10/25/2022 Other Adry Min, am serving as a [...] documentation has been reviewed by the aforementioned PA-C as well as Victor Hugo Wheat MD, [...] the decisions made by her. 12/20/2022 Other I, Garret Martin, am serving as a scribe to document [...] during the clinic visit. 01/16/2023 Other I, Chris Teixeira , am [...] made by her. 2023 Other I, Maribel Prabhu kong, am serving as a scribe to document services personally performed by Anton Griffin PA-C, based upon my observations and the provider's statements to me. All documentation has been reviewed by the aforementioned PANico. I, Anton Griffin PA-C, attest that the above named individual is acting in scribe capacity, has observed my performance of the services and has documented them in accordance with my direction. The documentation recorded by the scribe accurately reflects the service I personally performed and the decisions made during the clinic visit. 03/07/2023 Other Vickey Min, am serving as a [...] scribe to document services personally performed by Atnon Griffin PA-C, based upon my observations and [...] the decisions made by her. 05/08/2023 Other Mechelle, Navneet Lopez , am serving [...] Details Provider Name:Anton schmidt, 07/31/2023 01:45:00 PM, [address], [address], [place], [address], Insurance Providers Payer Name Payer Address Payer Phone Subscriber Number Group Number Insured Name Patient Relationship to Insured Coverage Start Date Coverage End Date [facility] Complete/A LEYDA [address] [address] [place] [address] [id number] Mariana Muhammad Self - patient is the insured 4 [facility] [address] [place] [address] [phone] [id number] Mariana Muhammad Self - patient is the insured 4 Medicare Part B [employer] [address] [facility] [address] [id number] Mariana Muhammad Self - patient is the insured 3 [facility] [address] [address] [place], [place] [phone] [id number] Mariaan Muhammad Self - patient is the insured [...]
--- OUTSIDE RECORDS SUMMARY | 2023-07-18 10:33 | XMS_ITS | Encounter Summary ---
Author Organization [facility] Address [address] [place] [address] Care Team Providers Care Reliability Technicians Name Role Phone Elsewhere, Pcp Primary Care Provider Unavailabl e Reason for Referral * Physical Therapy (Routine) - Authorized Specialty Diagnoses / Procedures Referred By David arnold Referred To Contact Physical Therapy Diagnoses Demyelinating Disease Central Nervous System (HCC) Wu Herrera M.B., Ch.B. [address] [place] [phone] Referral ID Status Reason Start Date Expiration Date Visits Requested Visits Authorized [id number] Authorized Service not available in [facility] 04/30/2023 10/29/2024 1 1 Reason for Visit * Reason Onset Date Comments External PT order 04/25/2023 Encounter Details Date Type Department Care Team (Latest Contact Info) Description 04/25/2023 Clinical Communication Department of Neurology in [address] [address] Wu Herrera M.B., Ch.B. [address] [place] [address] External PT order Social History Tobacco Use Types Packs/Day Years Used Date Smoking Tobacco: Light Smoker Smokeless Tobacco: Never Comments:Smokes more when st ressed [facility] Utilities Answer Date Recorded In the [...] declined 01/25/2022 How often do you attend samaritan or pentecostalism serv ices? Never 01/25/2022 Do you belong to any clubs o r organizations such as samaritan groups, unions, fraternal or athletic groups, or [...] medical care, and heating? Very hard 01/25/2022 [employer] [facility] - Occupational Stress [...] place to sleep or slept in a long-term (including now)? No 01/25/2022 Nutrition Answer Date [...] Sex Assigned at Female 01/25/2022 2:30 PM CUT OUT MARKER Gender Identity Female 01/25/2022 2:30 PM CUT OUT MARKER Sexual Orientation Straight 01/25/2022 2: 30 PM CUT OUT MARKER documented as of this encounter Miscellaneous Notes * Addendum Note - Wu Herrera M.B., Ch.B. - 04/30/2023 3:45 PM CDTAddended by: WU HERRERA on: 04/30/2023 03:45 PM Modules accepted: Orders * Telephone Encounter - Megan Perez M.S.N., R.N. - 04/30/2023 3:36 PM CDT [facility] explained the agency they have 48 hours [...] of the agency which provided the service. [employer] contacted [facility] and spoke with Araceli who confirmed that patient has received PT services from them in the past. Araceli said that the order can be faxed to them and it will be reviewed by the nurse client integration manager and they will let us know if they are able to provide the service requested. Order along with face sheet faxed to [facility] Fax @ [phone] Patient was also called and updated on [...] will need outside order for PT in [place]. Thank you. documented in this encounter Plan of Treatment Not on file documented as of this encounter Visit Diagnoses Diagnosis Demyelinating Disease Central Nervous System (HCC)- Primary documented in this encounter Care Teams Reliability Technicians Relationship Specialty Start Date End Date Elsewhere, Pcp PCP - General Family Medicine 12/19/20 documented as of this encounter
--- OUTSIDE RECORDS SUMMARY | 2023-07-18 10:33 | XMS_ITS ---
Author Organization [facility] Address [address] [place] [address] Care Team Providers Care Planing Machine Operator Name Role Phone Unavailable Unavailable Unavailable Surgery Details Not on file Complications Check Surgery Details section. Procedure Estimated Blood Loss Check Surgery Details section. Procedure Findings Check Surgery Details section. Procedure Specimens Taken Check Surgery Details section.
--- OUTSIDE RECORDS SUMMARY | 2023-07-18 10:34 | XMS_ITS | Encounter Summary ---
Author Organization [facility] Address [address] [place] [address] Care Team Providers Care Demand Generation Manager Name Role Phone Elsewhere, Pcp Primary Care Provider Unavailabl e Encounter Details Date Type Department Care Team (Late st Contact Info) Description 01/07/2004 Historical Ophthalmology [facility] Esequiel Reyes M.D. Social History Tobacco Use Types Packs/Day Years Used Date Smoking Tobacco: Never Assessed Sex and Gender Information Value Date Recorded Sex Assigned at Female 01/25/2022 2:30 PM TRANSIT PLANNER Gender Identity Female 01/25/2022 2:30 PM TRANSIT PLANNER Sexual Orientation Straight 01/25/2022 2: 30 PM TRANSIT PLANNER documented as of this encounter Progress Notes [...] #4 Photophobia CDM Reports - EYEGEN Id: [id number] Status: Fnl documented in this encounter Plan of Treatment Not on file documented as of this encounter Visit Diagnoses Not on filedocumented in this encounter Additional Health Concerns Infection Onset Date Last Indicated Resolved Time COVID19 Pending 12/17/2020 12/17/2020 01/06/2021 4 :54 AM TRANSIT PLANNER documented as of this encounter Care Teams Demand Generation Manager Relationship Specialty Start Date End Date Elsewhere, Pcp PCP - General Family Medicine 12/19/20 documented as of this encounter
--- OUTSIDE RECORDS SUMMARY | 2023-07-18 10:34 | XMS_ITS | Encounter Summary ---
Author Organization [facility] Address [address] [place] [address] Care Team Providers Care Line Erector Name Role Phone Elsewhere, Pcp Primary Care Provider Unavailabl e Encounter Details Date Type Department Care Team (Late st Contact Info) Description 08/21/2014 Historical Ophthalmology RST OPH Adolph De Santiago M.D., Ph.D. [address] [place] [address] Social History Tobacco Use Types Packs/Day Years Used Date Smoking Tobacco: Never Assessed Sex and Gender Information Value Date Recorded Sex Assigned at Female 01/25/2022 2:30 PM CONVERTER OPERATOR Gender Identity Female 01/25/2022 2:30 PM CONVERTER OPERATOR Sexual Orientation Straight 01/25/2022 2: 30 PM CONVERTER OPERATOR documented as of this encounter Progress [...] eye or something. She was inpatient at [facility] in April [address] Marroquin for a right periorbital lesion.On 04/29/14, ENT took the patient to the operating room and performed an aspiration and culture, orbital, periorbital, and paranasal sinus contents. Pathology showed chronic inflammation with no sign of infection. The patient was transferred to [facility] yesterday (08/20/14) from [facility] in [place] for right sided hemiplegia and hemisensory loss [...] has not followed-up in 3-5 years witha account strategist. She presented to the [place] ED with progressive right sided hemisensory loss, [...] at home she has been taking Lyrica, [place], and Vicodin; however she is unsure what [...] light perception) CDM Reports - EYEGEN Id: [id number] Status: Fnl documented in this encounter Plan of Treatment Not on file documented as of this encounter Visit Diagnoses Not on filedocumented in this encounter Additional Health Concerns Infection Onset Date Last Indicated Resolved Time COVID19 Pending 12/17/2020 12/17/2020 01/06/2021 4 :54 AM CONVERTER OPERATOR documented as of this encounter Care Teams Line Erector Relationship Specialty Start Date End Date Elsewhere, Pcp PCP - General Family Medicine 12/19/20 documented as of this encounter
--- OUTSIDE RECORDS SUMMARY | 2023-07-18 10:34 | XMS_ITS | Referral Summary ---
Author Organization [place] Address [address] [place] [address] Care Team Providers Care Streets And Buildings Decorator Name Role Phone Rodyd Trevino Primary Care Provider Allergies Active Allergy Reactions Criticality Noted Date [...] (198 lb 9.6 oz) 04/10/2012 9:25 AM FOUNDER AND PRESIDENT Height 171 cm (5' 7.32) 04/10/2012 9:2 5 AM FOUNDER AND PRESIDENT Body Mass Index 30.81 04/10/2012 9:25 AM FOUNDER AND PRESIDENT Plan of Treatment Not on file Care Teams Streets And Buildings Decorator Relationship Specialty Start Date End Date Roddy Trevino PCP - General 12/14/10
--- OUTSIDE RECORDS SUMMARY | 2023-07-18 10:34 | XMS_ITS | Encounter Summary ---
Author Organization [facility] Address [address] [place] [address] Care Team Providers Care Lab Manager Name Role Phone Elsewhere, Pcp Primary Care Provider Unavailabl e Encounter Details Date Type Department Care Team (Late st Contact Info) Description 04/29/2014 Historical Ophthalmology RST OPH Gracie Marroquin M.D. [address] [place] [address] Social History Tobacco Use Types Packs/Day Years Used Date Smoking Tobacco: Never Assessed Sex and Gender Information Value Date Recorded Sex Assigned at Female 01/25/2022 2:30 PM RIBBON BLOCKER Gender Identity Female 01/25/2022 2:30 PM RIBBON BLOCKER Sexual Orientation Straight 01/25/2022 2: 30 PM RIBBON BLOCKER documented as of this encounter Progress Notes [...] Patient had a dilated eye exam at [facility] on 04/27/14 swelling and pain of the right eye. His exam indicated a third nerve palsy and the patient was referred to Neurology at that time. She presented to [place] ED later that day and was admitted [...] Exam: MRI Hd wo&w Indications: ED Acute 98821/MRI Head/? galdino santos w R CN 3/5 palsy. special orb; t ORIGINAL REPORT - 27-Apr-2014 19:39:00 [facility] EXAM: MRI Brain without and with [...] surgery. Electronically signed by: Leatha Gunderson MD [id number] 27-Apr-2014 19:39 HR: confirmed above history. syptoms x last 1 week, pain around right eye, numbness and tingling inupper right face/forehead IMPRESSION / REPORT / PLAN Consult requested by: NEURO [phone] #1 Orbital inflammation, right #2 History of [...] Pseudophakia, left CDM Reports - EYEGEN Id: [id number] Status: Fnl documented in this encounter Plan of Treatment Not on file documented as of this encounter Visit Diagnoses Not on filedocumented in this encounter Additional Health Concerns Infection Onset Date Last Indicated Resolved Time COVID19 Pending 12/17/2020 12/17/2020 01/06/2021 4 :54 AM RIBBON BLOCKER documented as of this encounter Care Teams Lab Manager Relationship Specialty Start Date End Date Elsewhere, Pcp PCP - General Family Medicine 12/19/20 documented as of this encounter
--- OUTSIDE RECORDS SUMMARY | 2023-07-18 10:34 | XMS_ITS | Encounter Summary ---
Author Organization [facility] Address [address] [place] [address] Care Team Providers Care Armature Winder Repairer Name Role Phone Elsewhere, Pcp Primary Care Provider Unavailabl e Encounter Details Date Type Department Care Team (Late st Contact Info) Description 03/11/2002 Historical Ophthalmology RST OPH Carlos Zendejas M.D. [address] [place] [address] Social History Tobacco Use Types Packs/Day Years Used Date Smoking Tobacco: Never Assessed Sex and Gender Information Value Date Recorded Sex Assigned at Female 01/25/2022 2:30 PM BUILDING SERVICES TECHNICIAN Gender Identity Female 01/25/2022 2:30 PM BUILDING SERVICES TECHNICIAN Sexual Orientation Straight 01/25/2022 2: 30 PM BUILDING SERVICES TECHNICIAN documented as of this encounter Progress Notes [...] rechek prn CDM Reports - EYEGEN Id: [id number] Status: Fnl documented in this encounter Plan of Treatment Not on file documented as of this encounter Visit Diagnoses Not on filedocumented in this encounter Additional Health Concerns Infection Onset Date Last Indicated Resolved Time COVID19 Pending 12/17/2020 12/17/2020 01/06/2021 4 :54 AM BUILDING SERVICES TECHNICIAN documented as of this encounter Care Teams Armature Winder Repairer Relationship Specialty Start Date End Date Elsewhere, Pcp PCP - General Family Medicine 12/19/20 documented as of this encounter
--- OUTSIDE RECORDS SUMMARY | 2023-07-18 10:34 | XMS_ITS | Encounter Summary ---
Author Organization [facility] Address [address] [place] [address] Care Team Providers Care Assorter Laundry Name Role Phone Elsewhere, Pcp Primary Care Provider Unavailabl e Encounter Details Date Type Department Care Team (Late st Contact Info) Description 01/11/2004 Historical Ophthalmology RST OPH Esequiel Reyes M.D. Social History Tobacco Use Types Packs/Day Years Used Date Smoking Tobacco: Never Assessed Sex and Gender Information Value Date Recorded Sex Assigned at Female 01/25/2022 2:30 PM TAX AGENT Gender Identity Female 01/25/2022 2:30 PM TAX AGENT Sexual Orientation Straight 01/25/2022 2: 30 PM TAX AGENT documented as of this encounter Progress Notes * Eesquiel Reyes M.D. - 01/11/2004 12:00 AM CST [...] planitis L CDM Reports - EYEGEN Id: [id number] Status: Fnl documented in this encounter Plan of Treatment Not on file documented as of this encounter Visit Diagnoses Not on filedocumented in this encounter Additional Health Concerns Infection Onset Date Last Indicated Resolved Time COVID19 Pending 12/17/2020 12/17/2020 01/06/2021 4 :54 AM TAX AGENT documented as of this encounter Care Teams Assorter Laundry Relationship Specialty Start Date End Date Elsewhere, Pcp PCP - General Family Medicine 12/19/20 documented as of this encounter
--- OUTSIDE RECORDS SUMMARY | 2023-07-18 10:34 | XMS_ITS | Encounter Summary ---
Author Organization [facility] Address [address] [place] [address] Care Team Providers Care Campaign Specialist Name Role Phone Elsewhere, Pcp Primary Care Provider Unavailabl e Reason for Referral * Outpatient (Routine) - Authorized Specialty Diagnoses / Procedures Referred By Contac t Referred To Contact Neurology Juan Jose Martin M.B., Ch.B. [address] [place] [address] [facility] Referral ID Status Reason Start Date Expiration Date V isits Requested Visits Authorized [id number] Authorized 04/24/2023 10/23/2024 1 1 * MRI/CAT/PET Scan (Routine) - Pending Review Specialty Diagnoses / Procedures Referred By Contac t Referred To Contact Radiology Diagnoses Multiple Sclerosis (HCC) Procedures MR Brain without and with IV Contrast Juan Jose Martin M.B., Ch.B. [address] [place] [address] [facility] Referral ID Status Reason Start Date Expiration Date V isits Requested Visits Authorized [id number] Pending Review 04/24/2023 04/23/2024 1 1 * Physical Therapy (Routine) - Authorized Specialty Diagnoses / Procedures Referred By David arnold Referred To Contact Diagnoses Multiple Sclerosis (HCC) Procedures PT Evaluate and treat Juan Jose Martin M.B., Ch.B. [address] [place] [phone] [facility] Region Referral ID Status Reason Start Date Expiration Date V isits Requested Visits Authorized [id number] Authorized 04/24/2023 04/23/2024 1 1 Reason for Visit * Reason Comments Multiple Sclerosis fu * Outpatient (Routine) - Closed Specialty Diagnoses / Procedures Referred By David arnold Referred To Contact Neurology Diagnoses Multiple Sclerosis (HCC) Laurence Mujica P.A.-C. [address] [place] [phone] [facility] Referral ID Status Reason Start Date Expiration Date V isits Requested Visits Authorized [id number] Closed Specialty Services Required 07/14/2022 07/14/2023 1 1 Encounter Details Date Type Department Care Team (Late st Contact Info) Description 04/24/2023 9:30 AM CDT Office Visit Department of Neurology in [address] [address] Juan Jose Martin M.B., Ch.B. [address] [place] [phone] Multiple Sclerosis (HCC) (Primary Dx); Other Optic Atrophy Right Eye; Numbness; Ataxia Sensory; Diabetes Mellitus Type 2 With Diabetic Neuropathy (HCC) Discharge Disposition: Home or Self Care Social History Tobacco Use Types Packs/Day Years Used Date Smoking Tobacco: Light Smoker Smokeless Tobacco: Never Tobacco Cessation:Ready to Q uit: Not Asked; Counseling Given: Not Answered Comments:Smokes more when stressed [facility] Utilities Answer Date Recorded In the past 12 months has th e [employer], gas, oil, or water Press About Us threatened to shut off services in your [...] How often do you attend judaism or methodist serv ices? Never 01/25/2022 Do you belong [...] medical care, and heating? Very hard 01/25/2022 [facility] of Occupat ional Health - Occupational Stress [...] Sex Assigned at Female 01/25/2022 2:30 PM OFFICE LEAD Gender Identity Female 01/25/2022 2:30 PM OFFICE LEAD Sexual Orientation Straight 01/25/2022 2: 30 PM OFFICE LEAD documented as of this encounter Last Filed [...] blindness postsinus surgery, who presented at the [facility] on 04/24/2023 as [...] her current neurologist is Dr. Alvarado in [place]. Last motor exam in 06/2020 at that time she had normal strength in the upper extremity, with weakness of hip flexion, knee extension, and dorsiflexion. She was recently evaluated by my colleague Dr. Allred on 12/18/2020 when she presented with sudden bilateral lower extremity weakness and numbness, at that admission concern was for possible MS relapse, was initially transferred from [facility] and subsequently IVMP 1000 mg daily for [...] started on Tecfidera by Dr Alvarado in [place]. At baseline, she has tingling and numbness [...] BRAIN WWO, MR SPINE CERVICAL WWO LOCATION: [facility] DATE: 02/19/2023 INDICATION: Multiple sclerosis [...] BRAIN WWO, MR SPINE CERVICAL WWO LOCATION: [facility] DATE: 02/19/2023 INDICATION: Multiple sclerosis [...] BRAIN WWO, MR SPINE CERVICAL WWO LOCATION: [facility] DATE: 02/19/2023 INDICATION: Multiple sclerosis [...] Tech: CLAUDIA Referring MD: SMITHA REDMAN Site: [facility] ReadingLocation: [facility] Patient Location: Inpatient. Procedure: 2D, Color Doppler [...] . This study was interpreted by an [facility] accredited facility. CC: Laurence Mujica. Final CT [...] was performed of the tract to 20 Slovak Then, a 16-Slovak Peng catheter was inserted overthe wire into [...] suprapubic catheter tract with placement of 16 Slovak suprapubic Peng catheter. Please contact me with any questions. Chandler Cosby MD Vascular & Interventional Radiology at [facility] [phone] Pager: [phone] [email or web address] ASSESSMENT / PLAN Impression: Multiple sclerosis with [...] include both face to face and non [id number] time, of this about 15 minutes or so were spent in education, counseling and coordinating future care across multiple specialties. The decision-making was highly complex. Advance Care Planning full code on file Advance directives were discussed and material provided. Advance Care Planning Health Care Power of Shipping Support: [ Not available ] Neurological Prognosis: [ [...] content. Taiwo Espino, Ch.B. Board Certified Neurologist Neuro-Pediatric Dermatologist 04/24/23 11:22 AM CDT documented in this [...] (HCC) documented in this encounter Care Teams Campaign Specialist Relationship Specialty Start Date End Date Elsewhere, Pcp PCP - General Family Medicine 12/19/20 documented as of this encounter
--- OUTSIDE RECORDS SUMMARY | 2023-07-18 10:34 | XMS_ITS | Encounter Summary ---
Author Organization [facility] Address [address] [place] [address] Care Team Providers Care Blending Machine Operator Name Role Phone Elsewhere, Pcp Primary Care Provider Unavailabl e Encounter Details Date Type Department Care Team (Late st Contact Info) Description 07/20/2006 Historical Ophthalmology RST OPH Roddy Palmer M.D. [address] [place] [phone] Social History Tobacco Use Types Packs/Day Years Used Date Smoking Tobacco: Never Assessed Sex and Gender Information Value Date Recorded Sex Assigned at Female 01/25/2022 2:30 PM WATER FILTERER HELPER Gender Identity Female 01/25/2022 2:30 PM WATER FILTERER HELPER Sexual Orientation Straight 01/25/2022 2: 30 PM WATER FILTERER HELPER documented as of this encounter Progress Notes [...] left eye. CD Reports - EYEGEN Id: [id number] Status: Fnl documented in this encounter Plan of Treatment Not on file documented as of this encounter Visit Diagnoses Not on filedocumented in this encounter Additional Health Concerns Infection Onset Date Last Indicated Resolved Time COVID19 Pending 12/17/2020 12/17/2020 01/06/2021 4 :54 AM WATER FILTERER HELPER documented as of this encounter Care Teams Blending Machine Operator Relationship Specialty Start Date End Date Elsewhere, Pcp PCP - General Family Medicine 12/19/20 documented as of this encounter
--- OUTSIDE RECORDS SUMMARY | 2023-07-18 10:34 | XMS_ITS | Encounter Summary ---
Author Organization [facility] Address [address] [place] [address] Care Team Providers Care Certified Composites Technician Name Role Phone Elsewhere, Pcp Primary Care Provider Unavailabl e Encounter Details Date Type Department Care Team (Late st Contact Info) Description 03/26/2015 Historical Ophthalmology RST OPH Adolph De Santiago M.D., Ph.D. [address] [place] [address] Social History Tobacco Use Types Packs/Day Years Used Date Smoking Tobacco: Never Assessed Sex and Gender Information Value Date Recorded Sex Assigned at Female 01/25/2022 2:30 PM EDM OPERATOR Gender Identity Female 01/25/2022 2:30 PM EDM OPERATOR Sexual Orientation Straight 01/25/2022 2: 30 PM EDM OPERATOR documented as of this encounter Progress [...] light perception) #8 new optic perineuritis, right [facility] Reports - EYEGEN Id: [id number] Status: Fnl documented in this encounter Plan of Treatment Not on file documented as of this encounter Visit Diagnoses Not on filedocumented in this encounter Additional Health Concerns Infection Onset Date Last Indicated Resolved Time COVID19 Pending 12/17/2020 12/17/2020 01/06/2021 4 :54 AM EDM OPERATOR documented as of this encounter Care Teams Certified Composites Technician Relationship Specialty Start Date End Date Elsewhere, Pcp PCP - General Family Medicine 12/19/20 documented as of this encounter
--- OUTSIDE RECORDS SUMMARY | 2023-07-18 10:34 | XMS_ITS | Encounter Summary ---
Author Organization [facility] Address [address] [place] [address] Care Team Providers Care Nuclear Worker Technician Name Role Phone Elsewhere, Pcp Primary Care Provider Unavailabl e Encounter Details Date Type Department Care Team (Late st Contact Info) Description 03/25/2015 Historical Ophthalmology RST OPH Jocelin Scott M.D. Social History Tobacco Use Types Packs/Day Years Used Date Smoking Tobacco: Never Assessed Sex and Gender Information Value Date Recorded Sex Assigned at Female 01/25/2022 2:30 PM SHEEP SORTER Gender Identity Female 01/25/2022 2:30 PM SHEEP SORTER Sexual Orientation Straight 01/25/2022 2: 30 PM SHEEP SORTER documented as of this encounter Progress Notes [...] light perception) CDM Reports - EYEGEN Id: [id number] Status: Fnl documented in this encounter Plan of Treatment Not on file documented as of this encounter Visit Diagnoses Not on filedocumented in this encounter Additional Health Concerns Infection Onset Date Last Indicated Resolved Time COVID19 Pending 12/17/2020 12/17/2020 01/06/2021 4 :54 AM SHEEP SORTER documented as of this encounter Care Teams Nuclear Worker Technician Relationship Specialty Start Date End Date Elsewhere, Pcp PCP - General Family Medicine 12/19/20 documented as of this encounter
--- OUTSIDE RECORDS SUMMARY | 2023-07-18 10:34 | XMS_ITS | Encounter Summary ---
Author Organization [facility] Address [address] [place] [address] Care Team Providers Care Water Proofer Name Role Phone Elsewhere, Pcp Primary Care Provider Unavailabl e Encounter Details Date Type Department Care Team (Late st Contact Info) Description 12/15/2014 Historical Ophthalmology RST OPH Adolph De Santiago M.D., Ph.D. [address] [place] [address] Social History Tobacco Use Types Packs/Day Years Used Date Smoking Tobacco: Never Assessed Sex and Gender Information Value Date Recorded Sex Assigned at Female 01/25/2022 2:30 PM TON CYLINDER INSPECTOR Gender Identity Female 01/25/2022 2:30 PM TON CYLINDER INSPECTOR Sexual Orientation Straight 01/25/2022 2: 30 PM TON CYLINDER INSPECTOR documented as of this encounter Progress Notes [...] (remains no light perception) CDM Reports - EYEInsurance Business Applications Id: [id number] Status: Fnl documented in this encounter Plan of Treatment Not on file documented as of this encounter Visit Diagnoses Not on filedocumented in this encounter Additional Health Concerns Infection Onset Date Last Indicated Resolved Time COVID19 Pending 12/17/2020 12/17/2020 01/06/2021 4 :54 AM TON CYLINDER INSPECTOR documented as of this encounter Care Teams Water Proofer Relationship Specialty Start Date End Date Elsewhere, Pcp PCP - General Family Medicine 12/19/20 documented as of this encounter
--- OUTSIDE RECORDS SUMMARY | 2023-07-18 10:34 | XMS_ITS | Clinical Summary ---
Author Organization [facility] Address [address] [place] [address] Care Team Providers Care Teaching Dietitian Name Role Phone Roddy Trevino Primary Care Provider [phone] Allergies Active Allergy Reactions Criticality Noted Date [...] (198 lb 9.6 oz) 04/10/2012 9:25 AM ADVANCED REGISTERED NURSE Height 171 cm (5' 7.32) 04/10/2012 9:2 5 AM ADVANCED REGISTERED NURSE Body Mass Index 30.81 04/10/2012 9:25 AM ADVANCED REGISTERED NURSE Plan of Treatment Not on file Care Teams Teaching Dietitian Relationship Specialty Start Date End Date Roddy Trevino PCP - General 12/14/10
--- OUTSIDE RECORDS SUMMARY | 2023-07-18 10:34 | XMS_ITS | Encounter Summary ---
Author Organization [facility] Address [address] [place] [address] Care Team Providers Care Evaluation Manager Name Role Phone Elsewhere, Pcp Primary Care Provider Unavailabl e Encounter Details Date Type Department Care Team (Late st Contact Info) Description 02/16/2004 Historical Ophthalmology RST OPH Roddy Palmer M.D. [address] [place] [phone] Social History Tobacco Use Types Packs/Day Years Used Date Smoking Tobacco: Never Assessed Sex and Gender Information Value Date Recorded Sex Assigned at Female 01/25/2022 2:30 PM HOOP CUTTER Gender Identity Female 01/25/2022 2:30 PM HOOP CUTTER Sexual Orientation Straight 01/25/2022 2: 30 PM HOOP CUTTER documented as of this encounter Progress [...] #3 Pars planitis L [facility]M [facility] Id: [id number] Status: Fnl documented in this encounter Plan of Treatment Not on file documented as of this encounter Visit Diagnoses Not on filedocumented in this encounter Additional Health Concerns Infection Onset Date Last Indicated Resolved Time COVID19 Pending 12/17/2020 12/17/2020 01/06/2021 4 :54 AM HOOP CUTTER documented as of this encounter Care Teams Evaluation Manager Relationship Specialty Start Date End Date Elsewhere, Pcp PCP - General Family Medicine 12/19/20 documented as of this encounter
--- OUTSIDE RECORDS SUMMARY | 2023-07-18 10:34 | XMS_ITS | Encounter Summary ---
Author Organization [facility] Address [address] [place] [address] Care Team Providers Care Desktop Publishing Associate Name Role Phone Elsewhere, Pcp Primary Care Provider Unavailabl e Encounter Details Date Type Department Care Team (Late st Contact Info) Description 09/18/2014 Historical Ophthalmology RST OPH Kristen Westfall M.D. Social History Tobacco Use Types Packs/Day Years Used Date Smoking Tobacco: Never Assessed Sex and Gender Information Value Date Recorded Sex Assigned at Female 01/25/2022 2:30 PM PLANT ELECTRICAL ENGINEER Gender Identity Female 01/25/2022 2:30 PM PLANT ELECTRICAL ENGINEER Sexual Orientation Straight 01/25/2022 2: 30 PM PLANT ELECTRICAL ENGINEER documented as of this encounter Progress Notes [...] / PLAN Consult requested by: Josi Martinez [phone] #1 Blurred vision left eye. Today she [...] optic atrophy. CD Reports - EYEGEN Id: [id number] Status: Fnl documented in this encounter Plan of Treatment Not on file documented as of this encounter Visit Diagnoses Not on filedocumented in this encounter Additional Health Concerns Infection Onset Date Last Indicated Resolved Time COVID19 Pending 12/17/2020 12/17/2020 01/06/2021 4 :54 AM PLANT ELECTRICAL ENGINEER documented as of this encounter Care Teams Desktop Publishing Associate Relationship Specialty Start Date End Date Elsewhere, Pcp PCP - General Family Medicine 12/19/20 documented as of this encounter
--- OUTSIDE RECORDS SUMMARY | 2023-07-18 10:34 | XMS_ITS | Encounter Summary ---
Author Organization [facility] Address [address] [place] [address] Care Team Providers Care Editor Book Name Role Phone Elsewhere, Pcp Primary Care Provider Unavailabl e Encounter Details Date Type Department Care Team (Late st Contact Info) Description 01/22/2004 Historical Ophthalmology [facility] Roddy Palmer M.D. [address] [place] [id number] Social History Tobacco Use Types Packs/Day Years Used Date Smoking Tobacco: Never Assessed Sex and Gender Information Value Date Recorded Sex Assigned at Female 01/25/2022 2:30 PM [employer] Gender Identity Female 01/25/2022 2:30 PM [employer] Sexual Orientation Straight 01/25/2022 2: 30 PM [employer] documented as of this encounter Progress Notes [...] from a refration. Will continue prednisolone at [place], recheck 3 weeks with refraction. DIAGNOSIS #1 Episcleritis, scleritis #2 Optic atrophy R #3 Pars planitis L CDM Reports - EYEGEN Id: [id number] Status: Fnl documented in this encounter Plan of Treatment Not on file documented as of this encounter Visit Diagnoses Not on filedocumented in this encounter Additional Health Concerns Infection Onset Date Last Indicated Resolved Time COVID19 Pending 12/17/2020 12/17/2020 01/06/2021 4 :54 AM [employer] documented as of this encounter Care Teams Editor Book Relationship Specialty Start Date End Date Elsewhere, Pcp PCP - General Family Medicine 12/19/20 documented as of this encounter
--- OUTSIDE RECORDS SUMMARY | 2023-07-18 10:35 | XMS_ITS | Clinical Summary ---
Author Organization [employer] [facility] Address [place], [place] [address] Care Team Providers Care Personal Injury Litigation Paralegal Name Role Phone Laurence Mujica Primary Care Provider [phone] Yumiko Garcia INTERN PRODUCT MARKETING MANAGER Unavailable Unavailable Nga White MD Unavailable [phone] [facility] [place] Unavailable [facility] [place] Unavailable [phone] Allergies Active Allergy Reactions Criticality Noted Date [...] High 07/23/2007 Morphine Chest Pain,Palpitations 11/20/2012 Tolerated [place] 04/21/2014 And chest pains Mushroom Anaphylaxis High [...] bladder disorder,Multiple sclerosis (HC) As directed. 14 Irish straight cath for self cath up to [...] bed. Length of need 99 months. 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 Use with Keegan 2 sensor as per control panel operator crude unit's directions 1 Each 2 Active Gauze Bandage [...] 06/28/19 24 Discontinue d(Reorder (E-cancel not sent)) pregabalin (LYRICA) 50 mg capsuleIndications: Chronic pain [...] loss in right eye. Was seen at [place] by neurology and rheumatology, apparently had characteristic MRI with demyelinating lesions but numerous lumbar punctures have not demonstrated CSF protein abnormalities. Has been seen at [facility] neurology clinic. Currently following with Dr. Shepherd at [facility]. Started on Tysabri (monoclonal baldo) infusions in 2007. Continues to have progressive symptoms. 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 12/06/15--Neurologist is Dr. Ab Whittington- location [facility] ext [phone]. Currently being [...] injury 02/25/2021 02/25/2021 Overview: Overview: Created by [facility] Annotation: May 09 2011 2:19PM - Minerva [...] Encounters Date Type Department Care Team Description 07/16/2023 12:00 PM CDT Home Care Visit [address] [phone] Socorro Barajas LPN LEAD DIE MOLDER - HOME VISIT 07/13/2023 1:00 PM CDT Home Care Visit [address] [phone] Orlando Escobar, RN SN - WOUND HOME VISIT 07/12/2023 Transcribe Orders [facility] [address] [place] [address] Sole Noel MD 07/09/2023 12:50 PM CDT Office Visit [facility] [address] [place] [address] Laurence Mujica PA Derm Problem (Check breast-has a 'hole with yellow drainage'-also needs cream for stomach) 07/09/2023 9:00 AM CDT Home Care Visit [address] [phone] Radha Bob, RN SN - HOME VISIT 07/09/2023 Orders Only [facility] [address] [place] [address] Laurence Mujica PA <No scans attached> 07/08/2023 Travel 07/07/2023 10:30 AM CDT Home Care Visit [facility] [address] [place] [address], [place] [address] Radha Bob, CALLUM SN - LONG VISIT (>90 MINUTES) 07/06/2023 1:00 PM CDT Home Care Visit [facility] [address] [place] [address], [place] [address] Ivette Martinez RN SN - WOUND HOME VISIT 07/06/2023 Home Care Visit [place] [address] [place] [address], [place] [address] Maria Victoria Mcintosh, PT PT - DISCIPLINE DISCHARGE 07/06/2023 Orders Only [facility] [address] [place] [address] Laurence Mujica PA <No scans attached> 07/06/2023 Home Care Visit [place] [address] [place] [address], [place] [address] Maria Victoria Mcintosh, PT CARE COORDINATION 07/05/2023 Home Care Visit [place] [address] [place] [address], [place] [address] Maria Victoria Mcintosh, PT PT - MISSED VISIT 07/04/2023 8:00 AM CDT Home Care Visit [facility] [address] [place] [address], [place] [address] Orlando Escobar, RN SN - OASIS RECERTIFICATION 07/04/2023 Plan of Care Documentation [place] [address] [place] [address], [place] [address] 07/03/2023 12:00 PM CDT Home Care Visit [place] [address] [place] [address], [place] [address] Luisa Burnett, PT PT - HOME VISIT 07/02/2023 8:30 AM CDT Home Care Visit [facility] [address] [facility] [place] [address] Radha Bob RN SN - WOUND HOME VISIT 07/01/2023 8:30 AM CDT Home Care Visit [facility] [address] [facility] [place] [address] Radha Bob RN SN - WOUND HOME VISIT 06/30/2023 12:00 PM CDT Home Care Visit [facility] [address] [facility] [place] [address] Radha Bob RN SN - WOUND HOME VISIT 06/29/2023 9:00 AM CDT Home Care Visit [facility] [address] [place] [address] Orlando Escobar, RN SN - WOUND HOME VISIT 06/28/2023 10:15 AM CDT Home Care Visit [facility] [address] [place] [address], [place] [address] Luisa Burnett, PT PT - WOUND HOME VISIT 06/28/[address] [address] Luisa Burnett, PT Home Care 06/27/2023 12:30 PM CDT Home Care Visit [facility] [address] [place] [address] Orlando Escobar, RN SN - WOUND HOME VISIT 06/26/2023 10:15 AM CDT Home Care Visit [facility] [address] [place] [phone] Luisa Burnett, PT PT - WOUND HOME VISIT 06/25/2023 10:30 AM CDT Home Care Visit [facility] [address] [place] [phone] Orlando Escobar, RN SN - WOUND HOME VISIT 06/24/2023 11:00 AM CDT Home Care Visit [facility] [address] [place] [address] Radha Bob, CALLUM SN - HOME VISIT 06/23/2023 10:30 AM CDT Home Care Visit [facility] [address] [place] [address] Radha Bob, RN SN - HOME VISIT 06/22/2023 10:30 AM CDT Home Care Visit [facility] [address] [place] [address] Orlando Escobar, RN SN - WOUND HOME VISIT 06/21/2023 11:30 AM CDT Office Visit [facility] [address] [facility] [address] [place] [address] Tata Cruz PA Surgical Followup (Check open wound on her left breast S/P Bilateral Breast Reduction with free nipple graft on 05/09/23 with Yazmin) 06/21/2023 10:30 AM CDT Home Care Visit [facility] [address] [place] [phone] Luisa Burnett, PT PT - MISSED VISIT 06/21/2023 Travel 06/21/2023 Telephone [facility] [address] [phone] Alfredo Arce MD Post-op Pain/problem (Wound on left breast) 06/20/2023 12:00 PM CDT Home Care Visit [facility] [address] [place] [address] Orlando Escobar, RN SN - WOUND HOME VISIT 06/20/2023 4:00 AM CDT Home Care Visit [facility] [address] [place] [phone] Laurence Clemons RN SN - WOUND/OSTOMY CHART CONSULT 06/20/2023 Travel 06/20/2023 Telephone [facility] [address] [place], [place] [phone] Laurence Clemons application software engineer (Wound care plan - requesting wound vac) 06/19/2023 1:30 PM CDT Home Care Visit [facility] [address] [place] [address] Luisa Burnett, PT PT - MISSED VISIT 06/19/2023 10:48 AM CDT - 06/19/2023 2:12 PM CDT Emergency [facility] [address] [place] [address] Alison Elmore NP Breast abscess (Primary Dx); Cellulitis, unspecified cellulitis site; Wound dehiscence Discharge Disposition: Home Self Care 06/19/2023 Telephone [facility] [address] [phone] Alfredo Arce MD Appointment Reminder; Appointment Request 06/19/2023 Travel 06/19/2023 Nurse Triage [facility] [address] [place] [address] Laurence Mujica PA Home Care (Pain ) 06/19/2023 Nurse Triage [facility] [address] [place] [address] Laurence Mujica PA Pain In Breast 06/18/2023 5:00 PM CDT Home Care Visit [facility] [address] [place] [address] Radha Bob, RN SN - WOUND HOME VISIT 06/18/2023 Home Care Visit [facility] [address] [place] [address] Radha Bob, RN CARE COORDINATION 06/17/2023 8:00 AM CDT Home Care Visit [facility] [address] [place] [address] Radha Bob, RN SN - WOUND HOME VISIT 06/16/2023 3:30 PM CDT Home Care Visit [facility] [address] [place] [phone] Radha Bob, RN SN - WOUND HOME VISIT 06/15/2023 1:15 PM CDT Home Care Visit [facility] [address] [place] [address] Socorro Barajas LPN LEAD DIE MOLDER - HOME VISIT 06/14/2023 12:30 PM CDT Home Care Visit [facility] [address] [place] [address] Orlando Escobar, RN SN - HOME VISIT 06/14/2023 10:30 AM CDT Home Care Visit [facility] [address] [place] [address] Luisa Burnett, PT PT - HOME VISIT 06/13/2023 12:30 PM CDT Home Care Visit [facility] [address] [place] [address] Socorro Barajas LPN LEAD DIE MOLDER - MISSED VISIT 06/13/2023 Home Care Visit [facility] [address] [place] [phone] Orlando Escobar, RN CARE COORDINATION 06/12/2023 9:00 AM CDT Home Care Visit [facility] [address] [place] [address] Luisa Burnett, PT PT - HOME VISIT 06/12/2023 Home Care Visit [facility] [address] [place] [phone] Orlando Escobar, RN SN - MISSED VISIT 06/12/[address] [address] Laurence Mujica PA Form (Jury Duty) 06/11/2023 4:00 PM CDT Home Care Visit [facility] [address] [place] [address] Radha Bob, RN SN - WOUND HOME VISIT 06/11/2023 Telephone [facility] [address] [place] [address] Laurence Mujica, PA Letter 06/10/2023 9:00 AM CDT Home Care Visit [facility] [address] [place] [address] Orlando Escobar, RN SN - WOUND HOME VISIT 06/09/2023 9:00 AM CDT Home Care Visit [facility] [address] [place] [phone] Orlando Escobar, RN SN - WOUND HOME VISIT 06/08/2023 1:30 PM CDT Home Care Visit [address] [address] Laurence Clemons RN SN - WOUND/OSTOMY CHART CONSULT 06/08/2023 12:00 PM CDT Home Care Visit [facility] [address] [place] [address] Orlando Escobar, RN SN - INITIAL ASSESSMENT 06/07/2023 4:00 PM CDT Home Care Visit [address] [address] Luisa Burnett, PT PT - OASIS RESUMPTION OF CARE 06/07/2023 Telephone [facility] [address] [place] [address] Luisa Burnett, PT Home Care 06/07/2023 Telephone [facility] [address] [place] [address] Luisa Burnett, PT Home Care 06/06/2023 Patient Outreach [facility] [address] [place] [address] Felicita Dickinson, RN Primary RN Care Management; Hospital F/U (LACE 80) 06/05/2023 Travel 06/04/2023 Travel 06/04/2023 Telephone [facility] [address] [phone] Alfredo Arce MD Surgical Followup (Wound under left breast/S/p: Bilateral Breast Reduction/DOS: 05/09/2023/Surgeon: Alfredo Arce//) 06/03/2023 Home Care Visit [facility] [address] [place] [address] Luisa Burnett, PT PT - OASIS TRANSFER 06/01/2023 8:28 PM CDT - 06/05/2023 12:30 PM CDT Hospital Encounter [facility] [address] [facility] [place] [address] Lane Barahona, Rory Bonner, DO Dang, Sarah Guidry, Kathy Bautista NP [place], Austin Christopher, DO Sepsis, due [...] 05/30/2023 12:00 PM CDT Home Care Visit [address] [place] [address] Luisa Burnett, PT PT - HOME VISIT 05/30/2023 Refill [facility] [address] [place] [address] Laurence Mujica PA Refill Request (Ondansetron) 05/28/2023 12:30 PM CDT Home Care Visit [address] [place] [address] Josi Tolentino RN SN - HOME VISIT 05/28/2023 8:56 AM CDT - 05/28/2023 11:05 AM CDT Emergency [facility] [address] Darryl Hardy MD Postoperative hematoma of skin following non-dermatologic procedure (Primary Dx) Discharge Disposition: Home Self Care 05/28/2023 Travel 05/25/2023 Nurse Triage [facility] [address] [phone] Alfredo Arce MD Post-op 05/23/2023 12:00 PM CDT Home Care Visit [facility] [address] [place] [phone] Luisa Burnett, PT PT - HOME VISIT 05/22/2023 1:00 PM CDT Home Care Visit [facility] [address] [place] [phone] Josi Tolentino RN SN - HOME VISIT 05/21/2023 1:00 PM CDT Office Visit [facility] [address] [place] [address] Alfredo Arce MD Surgical Followup (Bilateral Breast Reduction with free nipple graft, DOS: 05/09/23, w/ Dr. Arce) 05/21/2023 3:00 AM CDT Home Care Visit [facility] [address] [place] [phone] Luisa Burnett, PT PT - MISSED VISIT 05/21/2023 Travel 05/17/2023 11:00 AM CDT Home Care Visit [facility] [address] [place] [phone] Socorro Barajas LPN LEAD DIE MOLDER - HOME VISIT 05/17/2023 3:00 AM CDT Home Care Visit [facility] [address] [place] [phone] Luisa Burnett, PT PT - MISSED VISIT 05/17/2023 Travel 05/17/2023 Telephone [facility] [address] [phone] Alfredo Arce MD Hospital F/U (Sutures/itchiness. ) 05/16/2023 1:15 PM CDT Home Care Visit [facility] [address] [place] [phone] Lex Luisa L, PT PT - MISSED VISIT 05/14/2023 10:30 AM CDT Home Care Visit [facility] [address] [place] [phone] Josi Tolentino, RN SN - INITIAL ASSESSMENT 05/14/2023 Home Care Visit [facility] [address] [place] [phone] Josi Tolentino, CALLUM CARE COORDINATION 05/14/[address] [phone] Laurence Mujica PA Home Care (home care orders needed) 05/10/2023 1:00 PM CDT Nurse/Clinic Staff Only [facility] [address] [address] Surgical Followup (Post-operative call/DOS: 05/09/2023/Surgeon: Alfredo Arce) 05/10/2023 Travel 05/09/2023 9:50 AM CDT - 05/09/2023 11:40 AM CDT Surgery [address] [address] Alfredo Arce MD Bilateral Breast Reduction with free nipple graft 05/09/2023 9:50 AM CDT Anesthesia Event [address] [address] Alfredo Villa MD [facility], Henok Hameed MD 05/09/2023 8:21 AM CDT - 05/09/2023 1:12 PM CDT Hospital Encounter [address] [address] Alfredo Arce MD S/P bilateral breast reduction (Primary Dx) Discharge Disposition: Home Self Care 05/09/2023 Travel 05/08/2023 Home Care Visit [facility] [address] [place] [address] Roddy Pollack, PT CARE COORDINATION 05/08/2023 Home Care Visit [facility] [address] [place] [address] Roddy Pollack, PT CARE COORDINATION 05/08/2023 Orders Only [facility] [address] [place] [address] Laurence Mujica, PA <No scans attached> 05/07/2023 11:15 AM CDT Home Care Visit [facility] [address] [place] [address] Roddy Pollack, PT PT - OASIS START OF CARE 05/07/2023 Telephone [facility] [address] [place] [address] Roddy Pollack, PT Home Care (/) 05/07/2023 Orders Only [facility] [address] [facility] [address] Laurence Mujica, [place] <No scans attached> 05/07/2023 Plan of Care Documentation [facility] [address] [place] [address] 05/04/2023 Telephone [facility] [address] [facility] [place] [address] Roddy Pollack, PT Home Care 05/03/2023 Travel 05/01/2023 Travel 04/30/2023 Home Care Visit [facility] [address] [place] [address] Maria Victoria Mcintosh, PT CARE COORDINATION 04/30/2023 Home Care Visit [facility] [address] [place] [address] Luisa Burnett, PT CARE COORDINATION 04/27/2023 10:30 AM CDT Preop Visit [facility] 1400 [facility] [place] [address] Laurence Mujica PA Preoperative Exam ([facility]-Dr. Arce-breast reduction-05/09/23) 04/27/2023 Travel 04/27/2023 Transcribe Orders [facility] [address] [place] [address] Juan Jose Martin, [facility] 04/25/2023 Travel 04/21/2023 Refill [facility] [address] [place] [address] Laurence Mujica PA Refill Request (Valacyclovir) 04/20/2023 Telephone [facility] [address] [place] [address] Alfredo Arce MD Appointment (Pre-op) 04/17/2023 2:45 PM CDT Office Visit [facility] [address] [facility] [address] [place] [address] Michoacano Nathan MD Consult (MS) 04/17/2023 Travel [...] Different mom. No Known Problems Half-Sister 2 Tni dad. Different mom. Unknown Mother Other Other [...] Outcome GA Total Labor Labor/2nd/3rd Weight Sex Type Anes PTL Almaz A1 A5 Name Clin Para Para Para Last Filed Vital Signs Vital Sign Reading Time Taken Comments Blood Pressure 105/60 07/16/2023 12:10 PM CDT Pulse 80 07/16/2023 12:10 PM CDT Temperature 36.6 ??C (97.8 ??F) 07/16/2023 12:10 PM C DT Respiratory Rate 16 07/16/2023 12:10 PM CDT Oxygen Saturation 98% 07/16/2023 12:10 PM CDT Inhaled Oxygen Concentration - - Weight 84.4 kg (186 lb) 06/21/2023 11:41 AM CDT Height 174 cm (5' 8.5) 06/19/2023 10:56 AM CDT Body Mass Index 27.87 06/19/2023 10:56 AM CDT Plan of Treatment Upcoming Encounters Date Type Department Care Team (Late st Contact Info) Description 07/20/2023 4:00 AM CDT Home Care Visit [facility] [address] [place] [address] Josi Sosa, RN 07/23/2023 4:00 AM CDT Home Care Visit [facility] [address] [place] [address] Josi Sosa, RN 07/26/2023 12:30 PM CDT Procedure Only [facility] [address] [place] [address] Michoacano Nathan MD [address] [place], [place] [phone] 07/27/2023 4:00 AM CDT Home Care Visit [facility] [address] [place] [address], [place] [address] Josi Sosa, RN 07/30/2023 4:00 AM CDT Home Care Visit [facility] [address] [place] [phone] Josi Sosa, RN 08/03/2023 4:00 AM CDT Home Care Visit [facility] [address] [place] [address], [place] [address] Josi Sosa, RN 08/06/2023 4:00 AM CDT Home Care Visit [place] [address] [place] [address], [place] [address] Josi Sosa, RN 08/10/2023 4:00 AM CDT Home Care Visit [place] [address] [place] [address] Josi Sosa, RN 08/13/2023 4:00 AM CDT Home Care Visit [facility] [address] [place] [address] Josi Sosa, RN 08/17/2023 4:00 AM CDT Home Care Visit [facility] [address] [place] [address] Josi Sosa, RN 08/20/2023 4:00 AM CDT Home Care Visit [facility] [address] [place] [address] Josi Sosa, RN 08/24/2023 4:00 AM CDT Home Care Visit [facility] [address] [place] [address] Josi Sosa, RN 08/27/2023 4:00 AM CDT Home Care Visit [facility] [address] [place] [address] Josi Sosa, RN 08/31/2023 4:00 AM CDT Home Care Visit [facility] [address] [place] [address] Josi Sosa, RN Health Maintenance Due Date Last Done Comments [...] For Patients: ??As a result of the 21st Century Cures [...] of the 21st Century Cures Act, medical imagingexams and procedure reports [...] 06/19/2023 12:45:40 PM (Electronically Signed) Alison Elmore INTERN PRODUCT MARKETING MANAGER CT * BLOOD CULTURE X2 (06/19/2023 11:49 AM CDT) Only the most recent of4 resultswithin the time period is included. Pathologist [facility] CULTURE No Growth. 06/24/2023 1:51 PM CDT [facility] Blood BLOOD SPECIMEN / Unknown Butterfly / Unknown 06/19/2023 11:49 AM CDT 06/19/2023 12:15 PM CDT Alison Elmore INTERN PRODUCT MARKETING MANAGER MICROBIOLOG Y [facility] [address] [place] [address] * (ABNORMAL) CBC WITH AUTO DIFFERENTIAL (06/19/2023 11:39 AM CDT) Only the most recent of3 resultswithin the time period is included. [facility] Signature WHITE BLOOD COUNT 5.1 4.5 - 11.0 thou/cu mm 06/19/2023 11:58 AM [facility] RED BLOOD COUNT 4.05 4.00 - 5.20 mil/cu mm 06/19/2023 11:58 AM [facility] HEMOGLOBIN 10.0(L) 12.0 - 16.0 g/dL 06/19/2023 11:58 AM [facility] HEMATOCRIT 33.1 33.0 - 51.0 % 06/19/2023 11:58 AM [facility] MCV 82 80 - 100 fL 06/19/2023 11:58 AM [facility] MCH 24.7(L) 26.0 - 34.0 pg 06/19/2023 11:58 AM [facility] MCHC 30.2(L) 32.0 - 36.0 g/dL 06/19/2023 11:58 AM [facility] RDW 16.8(H) 11.5 - 15.5 % 06/19/2023 11:58 AM [facility] PLATELET COUNT 314 140 - 440 thou/cu mm 06/19/2023 11:58 AM [facility] MPV 9.9 6.5 - 11.0 fL 06/19/2023 11:58 AM [facility] % NEUT 68.3 % 06/19/2023 11:58 AM [facility] % LYMPH 13.8 % 06/19/2023 11:58 AM [facility] % MONO 9.9 % 06/19/2023 11:58 AM [facility] % EOS 7.2 % 06/19/2023 11:58 AM [facility] % BASO 0.8 % 06/19/2023 11:58 AM [facility] ABSOLUTE NEUTROPHILS 3.5 1.7 - 7.0 thou/cu mm 06/19/2023 11:58 AM [facility] ABSOLUTE LYMPHOCYTES 0.7(L) 0.9 - 2.9 thou/cu mm 06/19/2023 11:58 AM [facility] ABSOLUTE MONOCYTES 0.5 <0.9 thou/cu mm 06/19/2023 11:58 AM [facility] ABSOLUTE EOSINOPHILS 0.4 <0.5 thou/cu mm 06/19/2023 11:58 AM [facility] ABSOLUTE BASOPHILS 0.0 <0.3 thou/cu mm 06/19/2023 11:58 AM [facility] Blood BLOOD SPECIMEN / Unknown Butterfly / Unknown 06/19/2023 11:39 AM [facility] 06/19/2023 11:52 AM [facility] Alison Elmore NP HEMATOLOGY [facility] [address] [place] [address] * LACTATE VENOUS (06/19/2023 11:39 AM CDT) Only the most recent of4 resultswithin the time period is included. LACTATE,VENOUS 0.7 0.5 - 2.0 mmol/L 06/19/2023 12:08 PM CDT [facility] Blood BLOOD SPECIMEN / Unknown Butterfly / Unknown 06/19/2023 11:39 AM CDT 06/19/2023 11:47 AM CDT Alison Elmore INTERN PRODUCT MARKETING MANAGER CHEMISTRY [facility] [address] [place] [address] * PROCALCITONIN (06/19/2023 11:39 AM CDT) PROCALCITONIN 0.04 ng/ml 06/19/2023 12:21 PM CDT [facility] Blood BLOOD SPECIMEN / Unknown Butterfly / Unknown 06/19/2023 11:39 AM CDT 06/19/2023 11:47 AM CDT Narrative [facility] - 06/19/2023 12:21 PM CDT Procalcitonin [...] are obtained. Alison Elmore NP SEND OUTS [facility] [address] [place] [address] * (ABNORMAL) PROTIME-INR (06/19/2023 11:39 AM CDT) Only the most recent of3 resultswithin the time period is included. INR 1.1 <1.3 06/19/2023 11:56 AM CDT [facility] PROTIME 12.5(H) 10.3 - 12.3 sec 06/19/2023 11:56 AM CDT [facility] Blood BLOOD SPECIMEN / Unknown Butterfly / Unknown 06/19/2023 11:39 AM CDT 06/19/2023 11:[address] [facility] - 06/19/2023 11:56 AM CDT ?Therapeutic [...] is on UFH. Alison Elmore NP HEMATOLOGY [facility] [address] [place] [address] * (ABNORMAL) COMP METABOLIC PANEL (06/19/2023 11:39 AM CDT) Only the most recent of2 resultswithin the time period is included. SODIUM 138 136 - 145 mmol/L 06/19/2023 12:10 PM [facility] POTASSIUM 3.7 3.5 - 5.1 mmol/L 06/19/2023 12:10 PM [facility] CHLORIDE 101 98 - 107 mmol/L 06/19/2023 12:10 PM [facility] CO2,TOTAL 27 22 - 29 mmol/L 06/19/2023 12:10 PM [facility] ANION GAP 10 5 - 18 06/19/2023 12:10 PM [facility] GLUCOSE 84 70 - 99 mg/dL 06/19/2023 12:10 PM [facility] CALCIUM 8.7 8.6 - 10.0 mg/dL 06/19/2023 12:10 PM [facility] BUN 9 6 - 20 mg/dL 06/19/2023 12:10 PM [facility] CREATININE 0.59 0.50 - 0.90 mg/dL 06/19/2023 12:10 PM [facility] BUN/CREAT RATIO 15 10 - 20 12:10 PM [facility] eGFR >90 >90 mL/min/1.7 3m2 06/19/2023 12:10 PM [facility] Comment:As of 2021, eG FR is calculated by the CKD-EPI creatinine equation without race adjustment. ??eGFR can be influenced by muscle mass, exercise, and diet. ??The reported eGFR is an estimation only and is only applicable if the renal function is stable. ALBUMIN 4.3 4.0 - 4.9 g/dL 06/19/2023 12:10 PM T [facility] PROTEIN,TOTAL 7.3 6.0 - 8.0 g/dL 06/19/2023 12:10 PM T [facility] BILIRUBIN,TOTAL 1.0 0.0 - 1.2 mg/dL 06/19/2023 12:10 PM T [facility] ALK PHOSPHATASE 235(H) 35 - 104 IU/L 06/19/2023 12:10 PM T [facility] ALT (SGPT) 51(H) 10 - 35 IU/L 06/19/2023 12:10 PM T [facility] AST (SGOT) 123(H) 10 - 35 IU/L 06/19/2023 12:10 PM T [facility] Blood BLOOD SPECIMEN / Unknown Butterfly / Unknown 06/19/2023 11:39 AM CDT 06/19/2023 11:47 AM CDT Alison Elmore INTERN PRODUCT MARKETING MANAGER CHEMISTRY [facility] [address] [place] [address] * (ABNORMAL) HEMOGLOBIN (06/05/2023 9:27 AM CDT) Only the most recent of5 resultswithin the time period is included. HEMOGLOBIN 9.3(L) 12.0 - 16.0 g/dL 06/05/2023 9:47 AM CDT [facility] MCV 82 80 - 100 fL 06/05/2023 9:47 AM CDT [facility] Blood BLOOD SPECIMEN / Unknown Butterfly / Unknown 06/05/2023 9:27 AM CDT 06/05/2023 9:36 AM CDT Kathy Rizzo NP HEMATOLOGY Performing Organization Address [facility] Co de Phone Number [facility] [address] [place] [address] * POTASSIUM (06/05/2023 9:27 AM CDT) Only the most recent of3 resultswithin the time period is included. POTASSIUM 4.0 3.5 - 5.1 mmol/L 06/05/2023 10:00 AM CDT [facility] Blood BLOOD SPECIMEN / Unknown Butterfly / Unknown 06/05/2023 9:27 AM CDT 06/05/2023 9:36 AM CDT Kathy Rizzo NP CHEMISTRY Performing Organization Address [facility] de Phone Number [facility] [address] [place] [address] * (ABNORMAL) CREATININE (06/05/2023 9:27 AM CDT) Only the most recent of3 resultswithin the time period is included. eGFR >90 >90 mL/min/1.7 3m2 06/05/2023 10:00 AM CDT [facility] Comment:As of 2021, eG FR is calculated by the CKD-EPI creatinine equation without race adjustment. ??eGFR can be influenced by muscle mass, exercise, and diet. ??The reported eGFR is an estimation only and is only applicable if the renal function is stable. CREATININE 0.48(L) 0.50 - 0.90 mg/dL 06/05/2023 10:00 AM CDT [facility] Blood BLOOD SPECIMEN / Unknown Butterfly / Unknown 06/05/2023 9:27 AM CDT 06/05/2023 9:36 AM CDT Kathy Rizzo NP CHEMISTRY Performing Organization Address [facility] Co de Phone Number [facility] [address] [place] [address] * MAGNESIUM (06/05/2023 9:27 AM CDT) Only the most recent of2 resultswithin the time period is included. MAGNESIUM 1.7 1.6 - 2.6 mg/dL 06/05/2023 10:00 AM CDT [facility] Blood BLOOD SPECIMEN / Unknown Butterfly / Unknown 06/05/2023 9:27 AM CDT 06/05/2023 9:36 AM CDT Kathy Rizzo NP CHEMISTRY Performing Organization Address [facility] Co de Phone Number [facility] [address] [place] [address] * GLUCOSE METER (06/05/2023 9:13 AM CDT) Only the most recent of23 resultswithin the time period is included. [facility] GLUCOSE METER 99 65 - 100 mg/dL 06/05/2023 11:29 AM CDT [facility] Blood BLOOD SPECIMEN / Unknown 06/05/2023 9:13 AM CDT 06/05/2023 11:29 AM CDT Kathy Rizzo NP CHEMISTRY Performing Organization Address [facility] de Phone Number [facility] [address] [place] [address] * EKG 12 LEAD (06/04/2023 11:46 AM CDT) [facility] Interpretation Normal sinus rhythm Low voltage QRS [...] NOW QTc 442 ms BEYOND NOW P Rumford 53 degrees BEYOND NOW R Rumford -6 degrees BEYOND NOW T Rumford 16 degrees BEYOND NOW 06/04/2023 11:4 6 AM CDT 06/04/2023 8:21 PM CDT Kathy Rizzo NP EKG ORD Performing Organization Address City/[facility]/ZIP Co de Phone Number [place], [place] * WHITE BLOOD COUNT (06/04/2023 5:50 AM CDT) Only the most recent of2 resultswithin the time period is included. WHITE BLOOD COUNT 5.1 4.5 - 11.0 thou/cu mm 06/04/2023 6:32 AM CDT [facility] Blood BLOOD SPECIMEN / Unknown Butterfly / Unknown 06/04/2023 5:50 AM CDT 06/04/2023 6:25 AM CDT Kathy Rizzo NP HEMATOLOGY Performing Organization Address [facility] de Phone Number [facility] [address] [place] [address] * SODIUM (06/04/2023 5:50 AM CDT) Only the most recent of2 resultswithin the time period is included. SODIUM 138 136 - 145 mmol/L 06/04/2023 6:51 AM CDT [facility] Blood BLOOD SPECIMEN / Unknown Butterfly / Unknown 06/04/2023 5:50 AM CDT 06/04/2023 6:25 AM CDT Kathy Rizzo NP CHEMISTRY Performing Organization Address [facility] de Phone Number [facility] [address] [place] [address] * (ABNORMAL) C-REACTIVE PROTEIN (06/03/2023 6:49 AM CDT) C-REACTIVE PROTEIN 3.5(H) <0.5 mg/dL 06/03/2023 7:36 AM CDT [facility] Blood BLOOD SPECIMEN / Unknown Butterfly / Unknown 06/03/2023 6:49 AM CDT 06/03/2023 6:53 AM CDT Rory Boyer DO CHEMISTRY Performing Organization Address [facility] Co de Phone Number [facility] [address] [place] [address] * SCAN-CARDIAC STRIP (06/02/2023 10:13 AM CDT) Scanner OTHER * (ABNORMAL) CREATININE,ISTAT (06/02/2023 6:34 AM CDT) CREATININE, POCT 0.40(L) 0.57 - 1.11 mg/dL 06/02/2023 6:36 AM CDT [facility] Comment:Caution: Patients ta jaleel Hydroxyurea have falsely increased iStat Creatinine results. Verify creatinine results ordering a Creatinine (19400.2) eGFR >90 >90 mL/min/1.7 3m2 06/02/2023 6:36 AM CDT [facility] Comment:As of 2021, eG FR is calculated by the CKD-EPI creatinine equation without race adjustment. eGFR can be influenced by muscle mass, exercise, and diet. The reported eGFR is an estimation only and is only applicable if the renal function is stable. Blood BLOOD SPECIMEN / Unknown 06/02/2023 6:34 AM CDT 06/02/2023 6:36 AM CDT Rory Boyer DO CHEMISTRY Performing Organization Address [facility] Co de Phone Number [facility] [address] [place] [address] * SCAN-CARDIAC STRIP (06/02/2023 3:50 AM CDT) Scanner OTHER * (ABNORMAL) URINALYSIS MICROSCOPIC (06/01/2023 10:08 PM CDT) RBC 26-50(A) 0-2, None Seen /HPF 06/02/2023 12:02 AM CDT [facility] WBC >100(A) 0-2, 3-5, None Seen /HPF 06/02/2023 12:02 AM CDT [facility] BACTERIA Many(A) None Seen, Rare, Few Bacteria/ HPF 06/02/2023 12:02 AM CDT [facility] EPITHELIAL CELLS Few None Seen, Few Epi/HPF 06/02/2023 12:02 AM CDT [facility] Mucus Present 06/02/2023 12:02 AM T [facility] WHITE CELL CLUMPS Present(A) (none) 06/02/2023 12:02 AM CDT [facility] Urine URINE SPECIMEN / Unknown Non-Blood / Unknown 06/01/2023 10:08 PM CDT 06/01/2023 10:[address] BERUMEN URINE [facility] [address] [place] [address] * (ABNORMAL) URINE CULTURE (06/01/2023 10:08 PM CDT) CULTURE RESULT(A) 06/05/2023 9:31 AM CDT [facility] CULTURE >100,000 CFU/mL Escherichia coli 06/05/2023 9:31 AM CDT [facility] CULTURE 10,000-50,000 CFU/mL Enterococcus faecalis 06/05/2023 9:31 AM CDT [facility] Urine URINE SPECIMEN / Unknown Non-Blood / Unknown 06/01/2023 10:08 PM CDT 06/01/2023 10:13 PM CDT Narrative Organism Antibiotic Method Susceptibility Escherichia coli TRIMETHOPRIM/SULF <=02/23: S Escherichia coli AMPICILLIN >=32: R Escherichia [...] NITROFURANTOIN <=16: S Lane BERUMEN MICROBIOLOG Y [facility] [address] [address], * (ABNORMAL) URINALYSIS W REFLEX MICROSCOPIC IF POSITIVE (06/01/2023 10:08 PM T) COLOR Yellow Yellow Color 06/01/2023 10:31 PM [facility] CLARITY Cloudy(A) Clear Clarity 06/01/2023 10:31 PM [facility] SPECIFIC GRAVITY,URINE 1.025 1.010, 1.015, 1.020, 1.025 06/01/2023 10:31 PM [facility] PH,URINE 6.0 6.0, 7.0, 8.0, 5.5, 6.5, 7.5, 8.5 06/01/2023 10:31 PM [facility] UROBILINOGEN, QUALITATIVE Normal Normal EU/dl 06/01/2023 10:31 PM [facility] PROTEIN, URINE 30(A) Negative mg/dL 06/01/2023 10:31 PM [facility] GLUCOSE, URINE Negative Negative mg/dL 06/01/2023 10:31 PM [facility] KETONES,URINE Negative Negative mg/dL 06/01/2023 10:31 PM CDT [facility] BILIRUBIN,URI NE Negative Negative 06/01/2023 10:31 PM CDT [facility] OCCULT BLOOD,URINE Large(A) Negative 06/01/2023 10:31 PM CDT [facility] NITRITE Positive(A) Negative 06/01/2023 10:31 PM CDT [facility] LEUKOCYTE ESTERASE Large(A) Negative 06/01/2023 10:31 PM CDT [facility] Urine URINE SPECIMEN / Unknown Non-Blood / Unknown 06/01/2023 10:08 PM CDT 06/01/2023 10:[address] BERUMEN URINE [facility] [address] [place] [address] * XR CHEST 1 VIEW PORTABLE (06/01/2023 [...] CDT) CULTURE RESULT(A) 06/05/2023 8:50 AM CDT [facility] CULTURE 3+ Pseudomonas stutzeri 06/05/2023 8:50 AM CDT [facility] GRAM STAIN No Epithelial cells 06/05/2023 8:50 AM CDT [facility] GRAM STAIN 4+ RBCs 06/05/2023 8:50 AM CDT [facility] GRAM STAIN 2+ PMNs 06/05/2023 8:50 AM CDT [facility] GRAM STAIN 2+ Gram Negative Bacilli 06/05/2023 8:50 AM CDT [facility] Other (Other) Non-Blood / [...] MEROPENEM <=0.25: S Lane BERUMEN MICROBIOLOG Y [facility] [address] [place] [address], [place] * MUSCULOSKELETAL ULTRASOUND (05/28/2023 10:00 AM [...] cellulitis Darryl Hardy MD 05/28/2023 10:00 AM [facility] Emergency Department [phone] Darryl Hardy MD PROCEDURE ORD * (ABNORMAL) RED CELL MORPHOLOGY (05/28/2023 9:28 AM CDT) ELLIPTOCYTES Moderate 05/28/2023 10:04 AM CDT [facility] TEARDROP CELLS Few 05/28/2023 10:04 AM CDT [facility] RBC COMMENT Present(A) RBC morphology appears normal, RBC morphology within normal limits for newborns. 05/28/2023 10:04 AM T [facility] Blood BLOOD SPECIMEN / Unknown Butterfly / Unknown 05/28/2023 9:28 AM CDT 05/28/2023 9:35 AM CDT Josi Quevedo RN HEMATOLOGY Performing Organization Address City/[facility]/ZIP Co de Phone Number [facility] [address] [place] [address] * PLATELET ESTIMATE (05/28/2023 9:28 AM CDT) PLATELET ESTIMATE Adequate Adequate, No estimate 05/28/2023 10:04 AM CDT [facility] Blood BLOOD SPECIMEN / Unknown Butterfly / Unknown 05/28/2023 9:28 AM CDT 05/28/2023 9:35 AM CDT Josi Quevedo RN HEMATOLOGY Performing Organization Address City/[facility] Co de Phone Number [facility] [address] [place] [address] * (ABNORMAL) MANUAL DIFFERENTIAL (05/28/2023 9:28 AM CDT) [facility] % NEUTROPHILS 81.0 % 05/28/2023 10:04 AM [facility] % LYMPHOCYTES 12.0 % 05/28/2023 10:04 AM [facility] % MONOCYTES 4.0 % 05/28/2023 10:04 AM [facility] % EOSINOPHILS 3.0 % 05/28/2023 10:04 AM [facility] % BASOPHILS 0.0 % 05/28/2023 10:04 AM [facility] NEUTROPHILS ABSOLUTE 5.5 1.7 - 7.0 thou/cu mm 05/28/2023 10:04 AM [facility] LYMPHOCYTES ABSOLUTE 0.8(L) 0.9 - 2.9 thou/cu mm 05/28/2023 10:04 AM [facility] MONOCYTES ABSOLUTE 0.3 <0.9 thou/cu mm 05/28/2023 10:04 AM [facility] EOSINOPHILS ABSOLUTE 0.2 <0.5 thou/cu mm 05/28/2023 10:04 AM [facility] BASOPHILS ABSOLUTE 0.0 <0.3 thou/cu mm 05/28/2023 10:04 AM CDT [facility] Blood BLOOD SPECIMEN / Unknown Butterfly / Unknown 05/28/2023 9:28 AM CDT 05/28/2023 9:35 AM CDT Josi Quevedo RN HEMATOLOGY Performing Organization Address City/[facility]/ZIP Co de Phone Number [facility] [address] [place] [address] * TYPE AND SCREEN ONLY (05/28/2023 9:28 AM CDT) ABORH O Rh Positive 05/28/2023 10:20 AM CDT [facility] BLOOD BANK ANTIBODY SCREEN Negative Negative 05/28/2023 10:20 AM CDT [facility] BLOOD BANK SPECIMEN EXPIRATION DATE/TIME 05/31/23 23:59 05/28/2023 10:20 AM CDT [facility] BLOOD BANK Blood BLOOD SPECIMEN / Unknown Butterfly / Unknown 05/28/2023 9:28 AM CDT 05/28/2023 9:35 AM CDT Brian Ed Triage BLOOD BANK Performing Organization Address City/[facility]/ZIP Co de Phone Number [facility] BLOOD BANK [address] [place] [address] * (ABNORMAL) HEPATIC FUNCTION PANEL (05/28/2023 9:28 AM CDT) ALBUMIN 4.6 4.0 - 4.9 g/dL 05/28/2023 9:55 AM CDT [facility] PROTEIN,TOTAL 7.9 6.0 - 8.0 g/dL 05/28/2023 9:55 AM CDT [facility] BILIRUBIN,TOTAL 0.5 0.0 - 1.2 mg/dL 05/28/2023 9:55 AM CDT [facility] BILIRUBIN,DIRECT <0.2 0.0 - 0.3 mg/dL 05/28/2023 9:55 AM CDT [facility] BILIRUBIN,INDIRE CT 05/28/2023 9:55 AM [facility] Comment:Unable to calculate, Direct Bili <0.2 ALK PHOSPHATASE 144(H) 35 - 104 IU/L 05/28/2023 9:55 AM [facility] ALT (SGPT) 6(L) 10 - 35 IU/L 05/28/2023 9:55 AM [facility] AST (SGOT) 19 10 - 35 IU/L 05/28/2023 9:55 AM [facility] Blood BLOOD SPECIMEN / Unknown Butterfly / Unknown 05/28/2023 9:28 AM CDT 05/28/2023 9:35 AM CDT Darryl Hardy MD CHEMISTRY [facility] [address] [place], [place] [id number] * (ABNORMAL) Basic Metabolic Panel (05/28/2023 9:28 AM CDT) Only the most recent of2 resultswithin the time period is included. SODIUM 142 136 - 145 mmol/L 05/28/2023 9:55 AM [facility] POTASSIUM 4.0 3.5 - 5.1 mmol/L 05/28/2023 9:55 AM [facility] CHLORIDE 104 98 - 107 mmol/L 05/28/2023 9:55 AM [facility] CO2,TOTAL 28 22 - 29 mmol/L 05/28/2023 9:55 AM [facility] ANION GAP 10 5 - 18 05/28/2023 9:55 AM [facility] GLUCOSE 94 70 - 99 mg/dL 05/28/2023 9:55 AM [facility] CALCIUM 10.1(H) 8.6 - 10.0 mg/dL 05/28/2023 9:55 AM [facility] BUN 6 6 - 20 mg/dL 05/28/2023 9:55 AM [facility] CREATININE 0.53 0.50 - 0.90 mg/dL 05/28/2023 9:55 AM CDT [facility] BUN/CREAT RATIO 11 10 - 20 9:55 AM CDT [facility] eGFR >90 >90 mL/min/1.7 3m2 05/28/2023 9:55 AM CDT [facility] Comment:As of 2021, eG FR [...] 9:35 AM CDT Josi Quevedo RN CHEMISTRY [facility] [address] [place] [address] * PATH TISSUE EXAM (05/09/2023 10:20 AM CDT) Case Report Pathology Report ?Case: [id number] ? Authorizing Provider: ??Alfredo Arce MD ?Collected: ? 05/09/2023 1020 ? Ordering Location: ? [facility] ?Received: ?05/09/2023 1348 [facility] ? Pathologist: ? Roddy Wright MD ? Specimens: ?? A) - Left Breast ? B) - Right Breast ? 05/11/2023 11:51 AM T Your Office Agent [facility] Final Diagnosis A) LEFT BREAST, REDUCTION MAMMOPLASTY: 1. Benign breast tissue with proliferative fibrocystic change 2. Negative for atypia and malignancy B) RIGHT BREAST, REDUCTION MAMMOPLASTY: 1. Benign breast tissue with proliferative fibrocystic change 2. Negative for atypia and malignancy 05/11/2023 11:51 AM [facility] Your Office Agent LABORATORY[facility]C [facility] Clinical Information Bilateral disabling macromastia 05/11/2023 11:51 AM [facility] Your Office Agent [facility] Gross Description A) Received in formalin, labeled with the patient's name and left breast, is a 1057 g, 22.0 x 19.0 x 5.0 cm aggregate of yellow-beltran fibrofatty tissue and beltran smooth unremarkable skin. The specimen is serially sectioned revealing yellow-beltran cut surfaces consisting of approximately 70% yellow adipose tissue and 30% beltran fibrous tissue. No discrete lesions are noted. Sales Representative Facility Services sections are submitted in 3 cassettes. Time [...] fibrous tissue. No discrete lesions are noted. Sales Representative Facility Services sections are submitted in 3 cassettes. Time removed from patient: 1049 Time placed in formalin: 1135 Date removed and placed in formalin: 05/09/2023 The specimen was fixed in formalin for a minimum of 6 hours and not longer than 72 hours. KMN 05/09/2023 05/11/2023 11:51 AM CDT [facility] Microscopic Description The final diagnosis is based on microscopic examination of appropriate sections of all specimens. 05/11/2023 11:51 AM CDT [facility] Additional Information Interpreted at [facility] - [address] [facility] [address], [place] [address] 05/11/2023 11:51 AM CDT [facility] Tissue (Left Breast) 05/09/2023 10:20 AM CDT 05/09/2023 1:48 PM CDT Tissue specimen (specimen) (Right Breast) 05/09/2023 10:49 AM CDT 05/09/2023 1:48 PM CDT Alfredo Arce MD PATHOLOGY/CYTOLOGY [facility] [address] [place] [address], * [facility] MASK PR5 (05/09/2023 10:08 AM CDT) Narrative [...] - 199 mg/dL 11/30/2022 11:51 PM CDT [facility] Comment: Cholesterol, Total Reference Ranges Desirable <200 mg/dL Borderline 200-239 mg/dL High >=240 mg/dL TRIGLYCERIDES 149 <150 mg/dL 11/30/2022 11:51 PM CDT [facility] HDL CHOLESTEROL 36(L) >40 mg/dL 11:51 PM CDT [facility] NON-HDL CHOLESTEROL 124 <145 mg/dl 11/30/2022 11:51 PM CDT [facility] CHOL/HDL RATIO 4.44 <4.50 11/30/2022 11:51 PM CDT [facility] LDL CHOLESTEROL 94 <=130 mg/dL 11/30/2022 11:51 PM CDT [facility] VLDL CHOLESTEROL 30 <=30 mg/dL 11/30/2022 11:51 PM CDT [facility] PROVIDER ORDERED STATUS RANDOM 11/30/2022 11:51 PM CDT [facility] Blood BLOOD SPECIMEN / Unknown Butterfly / Unknown 11/30/2022 4:09 PM CDT 11/30/2022 4:11 PM CDT Laurence BERUMEN CHEMISTRY [facility] [address] [place] [address], * XR MAMMO KAYLEE BILAT SCREEN (06/07/2022 [...] care provider. XR MAMMO KAYLEE BILAT SCREEN [[id number]] CLINICAL HISTORY: ??This is an asymptomatic 47 [...] carly Non-React carly 09/23/2021 4:44 PM CDT [facility] Comment:Antibodies to HCV no t detected; does not exclude the possibility of exposure to HCV. Blood BLOOD SPECIMEN / Unknown Venipuncture / Unknown 09/20/2021 11:11 PM CDT 09/20/2021 11:15 PM CDT Bela Chávez MD SEND OUTS [facility] [address] [place] [address], * ANTI HIV 1/2 (09/20/2021 11:11 PM CDT) HIV-1/HIV-2 ANTIBODY Non-Reacti ve Non-Reacti ve 09/23/2021 6:18 PM CDT [facility] Comment:HIV-1 p24 and HIV-1/ HIV-2 Ab not detected. Blood BLOOD SPECIMEN / Unknown Venipuncture / Unknown 09/20/2021 11:11 PM CDT 09/20/2021 11:15 PM CDT Bela Chávez MD SEND OUTS [facility] [address] [place] [address], from Last 3 Months or Most Recently Relevant to Health Maintenance Advance Directives Documents on File Type Date Recorded Patient Sales Representative Facility Services Expl anation Healthcare Directive 12/15/2022 023 POLST [...] Intubation Drug Protocol: No Restrictions Care Teams Personal Injury Litigation Paralegal Relationship Specialty Start Date End Date Laurence Mujica [place] [address] PCP - General Physician Leaf Binner 07/16/14 Yumiko Garcia NP [address] [place] [address] Psychiatry Nurse Practitioner 04/07/16 Nga White MD [address] [place] [address] Surgery - Urology 06/15/22 [facility] [place] [address] [address] 04/30/23 [facility] [place] [address] [address] 04/30/23
== END 2023-07-18 10:32 | disposition home or self-care (01) ==
LOC: WOUND 10:31
PROVIDERS: PCP Physician Assistant; Visit Provider Surgery
DX: T81.31XA Disruption of external operation (surgical) wound, not elsewhere classified, initial encounter (principal); E11.628 Type 2 diabetes mellitus with other skin complications; G35 Multiple sclerosis; Z79.84 Long term (current) use of oral hypoglycemic drugs
CPT/HCPCS: 97605

== ENCOUNTER 2023-07-25 10:49 | Outpatient (CLI) | payer MEDICARE, MEDICAID, SELFPAY ==
--- OUTSIDE RECORDS SUMMARY | 2023-07-25 10:50 | XMS_ITS | Patient Health Record ---
Author Organization [facility] Address [address] [place] [address] [address] [place] [address] Care Team Providers Care Sumac Tanner Name Role Phone Laurence Mujica Primary Care Provider UnavailDavid Tripathi Unavailable [phone] Raymond Jurado DO Unavailable Unavailable Victor Hugo Wheat Unavailable [phone] Anton Griffin Unavailable [phone] Rod Golden Unavailable [phone] Fabian Walsh Unavailable [phone] ALLERGIES Allergen (clinical drug ingredient) Drug/Non Drug Allergy documented on EMR Reaction Allergy Type Onset Date Status fentanyl Fentanyl Hallucinations Drug Allergy Ac tive RESULTS Component Value Reference Range Notes Urine toxicology Reviewed date:11/14/2022 03:40:36 PM Interpretation:See Results Performing Lab: Notes/Report: See Results CARLOS Buprenophine OPI 300 0 AMP Ethanol MET Creatinine MDMA pH Specific [place] BAR BZO OXY See Results MTD Urine toxicology Reviewed date:11/14/2022 03:40:36 PM Interpretation:See Results Performing Lab: Notes/Report: See Results CARLOS Buprenophine OPI 300 0 AMP Ethanol MET Creatinine MDMA pH Specific [place] BAR BZO OXY See Results MTD Urine toxicology Reviewed date:05/21/2023 12:21:59 PM Interpretation:See Results Performing Lab: Notes/Report: See Results CARLOS Buprenophine OPI 300 0 AMP Ethanol MET Creatinine MDMA pH Specific [place] BAR BZO OXY See Results MTD Urine toxicology Reviewed date:05/21/2023 12:21:59 PM Interpretation:See Results Performing Lab: Notes/Report: See Results CARLOS Buprenophine OPI 300 0 AMP Ethanol MET Creatinine MDMA pH Specific [place] BAR BZO OXY See Results MTD Urine toxicology Reviewed date:03/07/2023 03:21:55 PM Interpretation:See Results Performing Lab: Notes/Report: See Results CARLOS Buprenophine OPI 300 1000 AMP Ethanol MET Creatinine MDMA pH Specific [place] BAR BZO OXY See Results MTD Urine toxicology Reviewed date:08/31/2022 02:01:33 PM Interpretation:See Results Performing Lab: Notes/Report: See Results CARLOS Buprenophine OPI 300 1000 AMP Ethanol MET Creatinine MDMA pH Specific [place] BAR BZO OXY See Results MTD Urine toxicology Reviewed date:08/31/2022 02:01:33 PM Interpretation:See Results Performing Lab: Notes/Report: See Results CARLOS Buprenophine OPI 300 1000 AMP Ethanol MET Creatinine MDMA pH Specific [place] BAR BZO OXY See Results MTD REASON [...] dependence, uncomplicated (F11.20) Active confirmed Opioid dependence (68421546) Problem Personality disorder, unspecified (F60.9) 9 Active confirmed Unspecified Personality Disorder; rule out mixed ( borderline, dependent, negativistic, explosive traits); rule out organic (18570620) Problem Other chronic pain (G89.29) Active confirmed Chronic pain (47699790) Problem Rheumatoid arthritis, unspecified (M06.9) Active confirmed Rheumatoid arthritis (20394605) Problem Systemic lupus erythematosus, unspecified (M32.9) Active confirmed Systemic lupus erythematosus (40096793) Problem Pain in leg, unspecified (M79.606) Active confirmed Pain in limb (77256124) Problem Fibromyalgia (M79.7) Active confirmed Fibromyalgia (210179412) VITAL SIGNS Blood pressure diastolic 70 mm Hg 07/04/2023 Height 69 in 07/04/2023 Blood pressure systolic 112 mm Hg 07/04/2023 Weight 187 lbs 06/06/2023 BMI 27.61 kg/m2 06/06/2023 Encounters Encounter Location Date Provider Diagnosis BV [facility] [address] [place] [address] 08/22/2022 Victor Hugo Wheat [facility] [address] [place] [address] [address] [facility] [place] [address] 10/26/2022 Anton Bolick Other chronic pain G89.29 [facility] [address] [place] [address] [address] [facility] [place] [address] 12/25/2022 Anton Bolick Other chronic pain G89.29 [facility] [address] [place] [address] [address] [place] [address] 2023 Anton Bolick [facility] [address] [place] [address] [address] [place] [address] 02/06/2023 Anton Bolick [facility] [address] [place] [address] [address] [facility] [place] [address] 05/11/2023 Anton Bolick [address] [facility] [address] [place] [address] 01/16/2023 Anton Bolick Pain in leg, unspecified M79.606 ; Fibromyalgia M79.7 and Other chronic pain G89.29 [address] [facility] [address] [place] [address] 2023 Anton Bolick Pain in leg, unspecified M79.606 ; Fibromyalgia M79.7 ; Other chronic pain G89.29 ; prison (current) use of opiate analgesic Z79.891 ; Opioid dependence, uncomplicated F11.20 and Encounter for screening for other disorder Z13.89 [address] [facility] [address] [place] [address] 11/21/2022 Anton Bolick Pain in leg, unspecified M79.606 ; Fibromyalgia M79.7 and Other chronic pain G89.29 [address] [facility] [address] [place] [address] 12/20/2022 Anton Bolick Pain in leg, unspecified M79.606 ; Fibromyalgia M79.7 and Other chronic pain G89.29 [address] [facility] [address] [place] [address] 08/01/2022 Anton Bolick Pain in leg, unspecified M79.606 ; Fibromyalgia M79.7 ; Other chronic pain G89.29 ; Opioid dependence, uncomplicated F11.20 and 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.891 [address] [facility] [address] [place] [address] 08/30/2022 Anton Bolick Pain in leg, unspecified M79.606 ; Fibromyalgia M79.7 and Other chronic pain G89.29 [address] [facility] [address] [place] [address] 09/27/2022 Anton Bolick Pain in leg, unspecified M79.606 ; Fibromyalgia M79.7 and Other chronic pain G89.29 [address] [facility] [address] [place] [address] 10/25/2022 Anton Bolick Pain in leg, unspecified M79.606 ; Fibromyalgia M79.7 ; Other chronic pain G89.29 ; prison (current) use of opiate analgesic Z79.891 and Opioid dependence, uncomplicated F11.20 BV [address] [facility] [address] [place] [address] 06/06/2023 Anton Bolick Fibromyalgia M79.7 ; Pain in leg, unspecified M79.606 and Other chronic pain G89.29 [address] [facility] [address] [place] [address] 07/04/2023 Anton Bolick Other chronic pain G89.29 and Pain in leg, unspecified M79.606 [address] [facility] [address] [address] 02/21/2023 Anton Bolick [address] [facility] [address] [address] 03/07/2023 Anton Bolick Pain in leg, unspecified M79.606 ; Fibromyalgia M79.7 ; Other chronic pain G89.29 ; prison (current) use of opiate analgesic Z79.891 ; Opioid dependence, uncomplicated F11.20 and Encounter for screening for other disorder Z13.89 [address] [facility] [address] [address] 03/08/2023 Rod Golden Pain in leg, unspecified M79.606 ; Fibromyalgia M79.7 and Other chronic pain G89.29 [address] [facility] [address] [place] [address] 03/13/2023 Anton Bolick Pain in leg, unspecified M79.606 ; Fibromyalgia M79.7 and Other chronic pain G89.29 [address] [facility] [address] [address] 04/10/2023 Anton Bolick Fibromyalgia M79.7 ; Pain in leg, unspecified M79.606 and Other chronic pain G89.29 [address] [facility] [address] [place] [address] 05/08/2023 Anton Bolick Fibromyalgia M79.7 ; Pain in leg, unspecified M79.606 ; Other chronic pain G89.29 ; prison (current) use of opiate analgesic Z79.891 and Opioid dependence, uncomplicated F11.20 104 [facility] [address] [place] [address] 05/09/2023 Antonedwin Griffin 104 [facility] [address] [place] [address] 02/01/2023 Fabian Walsh [address] [facility] [address] [place] [address] 02/06/2023 Anton Griffin Pain in leg, unspecified M79.606 ; Fibromyalgia M79.7 ; Other chronic pain G89.29 ; 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.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 ; Opioid dependence, uncomplicated F11.20 and Encounter for screening for other disorder Z13.89 ASSESSMENTS Encounter Date Diagnosis Assessment Notes Treatment Notes Treatment Clinical Notes 12/25/2022 Other chronic pain (ICD-10 - G89.29) 03/07/2023 Pain in leg, unspecified (ICD-10 - M79.606) 03/08/2023 Pain in leg, unspecified (ICD-10 - M79.606) 04/10/2023 Pain in leg, unspecified (ICD-10 - M79.606) 04/10/2023 Fibromyalgia (ICD-10 - M79.7) 05/08/2023 Pain in leg, unspecified (ICD-10 - M79.606) 05/08/2023 Fibromyalgia (ICD-10 - M79.7) 07/04/2023 Other chronic pain (ICD-10 - G89.29) Mariana returns to clinic today for a follow up evaluation regarding her chronic dispersed body pain. I have reviewed the [facility] database and did not find any [...] in leg, unspecified (ICD-10 - M79.606) 01/16/2023 Pain in leg, unspecified (ICD-10 - [...] in leg, unspecified (ICD-10 - M79.606) 08/01/2022 Fibromyalgia (ICD-10 - M79.7) 08/30/2022 Fibromyalgia (ICD-10 - M79.7) 09/27/2022 Fibromyalgia (ICD-10 - M79.7) 10/25/2022 Fibromyalgia (ICD-10 - M79.7) 11/21/2022 Fibromyalgia (ICD-10 - M79.7) 12/20/2022 Fibromyalgia (ICD-10 - M79.7) 01/16/2023 Fibromyalgia (ICD-10 - M79.7) 2023 Fibromyalgia (ICD-10 - M79.7) 02/06/2023 Fibromyalgia (ICD-10 - M79.7) 06/06/2023 Pain in leg, unspecified (ICD-10 - M79.606) 03/13/2023 Fibromyalgia (ICD-10 - M79.7) 05/08/2023 Other chronic pain (ICD-10 - G89.29) Mariana returns to clinic today for a follow up evaluation regarding her chronic pain. I have reviewed the [place] [facility] database and did not find any inconsistencies. [...] or concerns. 03/08/2023 Fibromyalgia (ICD-10 - M79.7) 04/10/2023 Other chronic pain (ICD-10 - G89.29) Mariana returns to clinic today for a follow up evaluation regarding her chronic knees to feet pain. I have reviewed the [facility] database and did not find any [...] or concerns. 03/07/2023 Fibromyalgia (ICD-10 - M79.7) 03/07/2023 Other chronic pain (ICD-10 - G89.29) 03/08/2023 Other chronic pain (ICD-10 - G89.29) Mariana returns to clinic today for a follow up evaluation regarding her chronic pain. I have reviewed the [facility] database and we discussed her current symptoms and medications. Due to her recent procedure and [facility] treatment, Mariana has been prescribed sufficient pain medication for the time being. I have obtained ROIs to [employer] and the [facility] for further evaluation of her most recent treatment history. Otherwise she will follow up in a week to further discuss medication management. This treatment plan was reviewed with Mariana, and she was agreeable. Plan:1. BRITNEY to [employer] and [facility]2. Continue Oxycodone 20mg BID3. Follow up in [...] with any questions, problems or concerns. 05/08/2023 prison (current) use of opiate analgesic (ICD-10 - Z79.891) 06/06/2023 Other chronic pain (ICD-10 - G89.29) Mariana returns to clinic today for a follow up evaluation regarding her chronic pain. I have reviewed the [facility] database and did not find any [...] to feet pain. I have reviewed the [facility] database and did not find any [...] 02/06/2023 Other chronic pain (ICD-10 - G89.29) 12/20/2022 Other chronic pain (ICD-10 - G89.29) Mariana returns to clinic today for follow up of chronic dispersed body pain. I have reviewed the [facility] database and did not find any [...] dispersed body pain. I have reviewed the [facility] database and did not find any [...] dispersed body pain. I have reviewed the [facility] database and did not find any [...] dispersed body pain. I have reviewed the [facility] database and did not find any [...] dispersed body pain. I have reviewed the [place] [facility] database and did not find any inconsistencies. [...] dispersed body pain. I have reviewed the [place] [facility] database and did not find any inconsistencies. [...] dispersed body pain. I have reviewed the [place] [facility] database and did not find any inconsistencies. [...] dispersed body pain. I have reviewed the [place] [facility] database and did not find any inconsistencies. [...] with any questions, problems or concerns. 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 (ICD-10 - Z79.891) 05/08/2023 Opioid dependence, uncomplicated (ICD-10 - F11.20) 03/07/2023 Opioid dependence, uncomplicated (ICD-10 - F11.20) 02/06/2023 Opioid dependence, uncomplicated (ICD-10 - F11.20) 2023 Opioid dependence, uncomplicated (ICD-10 - F11.20) 10/25/2022 Opioid dependence, uncomplicated (ICD-10 - F11.20) 08/01/2022 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 [place] [address] [phone] [id number] Mariaan Muhammad Self - patient is the insured 4 Medicare Part B [employer] [address] [facility] [address] [id number] Mariana Muhammad Self - patient is the insured 3 [facility] [address] [address] [place], [place] [id number] Mariana Muhammad Self - patient is the insured 3 MEDICAL (GENERAL) HISTORY Medical History History ICD Code Acid reflux Anxiety Arthritis Depression Diabetes Fibromyalgia Migraine headaches Multiple sclerosis, relapsing-remitting Rheumatoid arthritis Thyroid problem Lupus PTSD (post-traumatic stress disorder) Chronic insomnia Convulsions Surgical History Surgery Date(Month/Year) Breast reduction 05/2023 Eye surgery tonsillectomy cholecystectomy hysterectomy sinus surgery Hospitalization History Reason Date(Month/Year) ER and TCU 02/2023 MS relapse 02/2021 MS relapse 12/2020
--- OUTSIDE RECORDS SUMMARY | 2023-07-25 10:51 | XMS_ITS | Encounter Summary ---
Author Organization [facility] Address [address] [place] [address] Care Team Providers Care Novelty Maker Name Role Phone Elsewhere, Pcp Primary Care Provider Unavailabl e Encounter Details Date Type Department Care Team (Late st Contact Info) Description 01/07/2004 Historical Ophthalmology [facility] Esequiel Reyes M.D. Social History Tobacco Use Types Packs/Day Years Used Date Smoking Tobacco: Never Assessed Sex and Gender Information Value Date Recorded Sex Assigned at Female 01/25/2022 2:30 PM POLICE OFFICER Gender Identity Female 01/25/2022 2:30 PM POLICE OFFICER Sexual Orientation Straight 01/25/2022 2: 30 PM POLICE OFFICER documented as of this encounter Progress Notes [...] #4 Photophobia CDM Reports - EYEGEN Id: [id number] Status: Fnl documented in this encounter Plan of Treatment Not on file documented as of this encounter Visit Diagnoses Not on filedocumented in this encounter Additional Health Concerns Infection Onset Date Last Indicated Resolved Time COVID19 Pending 12/17/2020 12/17/2020 01/06/2021 4 :54 AM POLICE OFFICER documented as of this encounter Care Teams Novelty Maker Relationship Specialty Start Date End Date Elsewhere, Pcp PCP - General Family Medicine 12/19/20 documented as of this encounter
--- OUTSIDE RECORDS SUMMARY | 2023-07-25 10:51 | XMS_ITS | Encounter Summary ---
Author Organization [facility] Address [address] [place] [address] Care Team Providers Care Drawer In Jacquard Loom Name Role Phone Elsewhere, Pcp Primary Care Provider Unavailabl e Encounter Details Date Type Department Care Team (Late st Contact Info) Description 01/11/2004 Historical Ophthalmology [facility] Esequiel Reyes M.D. Social History Tobacco Use Types Packs/Day Years Used Date Smoking Tobacco: Never Assessed Sex and Gender Information Value Date Recorded Sex Assigned at Female 01/25/2022 2:30 PM ALUMNI COORDINATOR Gender Identity Female 01/25/2022 2:30 PM ALUMNI COORDINATOR Sexual Orientation Straight 01/25/2022 2: 30 PM ALUMNI COORDINATOR documented as of this encounter Progress Notes [...] planitis L CDM Reports - EYEGEN Id: [id number] Status: Fnl documented in this encounter Plan of Treatment Not on file documented as of this encounter Visit Diagnoses Not on filedocumented in this encounter Additional Health Concerns Infection Onset Date Last Indicated Resolved Time COVID19 Pending 12/17/2020 12/17/2020 01/06/2021 4 :54 AM ALUMNI COORDINATOR documented as of this encounter Care Teams Drawer In Jacquard Loom Relationship Specialty Start Date End Date Elsewhere, Pcp PCP - General Family Medicine 12/19/20 documented as of this encounter
--- OUTSIDE RECORDS SUMMARY | 2023-07-25 10:51 | XMS_ITS | Encounter Summary ---
Author Organization [facility] Address [address] [place] [address] Care Team Providers Care Advertising Campaign Manager Name Role Phone Elsewhere, Pcp Primary Care Provider Unavailabl e Encounter Details Date Type Department Care Team (Late st Contact Info) Description 03/25/2015 Historical Ophthalmology [facility] Jocelin Scott M.D. Social History Tobacco Use Types Packs/Day Years Used Date Smoking Tobacco: Never Assessed Sex and Gender Information Value Date Recorded Sex Assigned at Female 01/25/2022 2:30 PM MUSIC STORE MANAGER Gender Identity Female 01/25/2022 2:30 PM MUSIC STORE MANAGER Sexual Orientation Straight 01/25/2022 2: 30 PM MUSIC STORE MANAGER documented as of this encounter Progress [...] light perception) CDM Reports - EYEGEN Id: [id number] Status: Fnl documented in this encounter Plan of Treatment Not on file documented as of this encounter Visit Diagnoses Not on filedocumented in this encounter Additional Health Concerns Infection Onset Date Last Indicated Resolved Time COVID19 Pending 12/17/2020 12/17/2020 01/06/2021 4 :54 AM MUSIC STORE MANAGER documented as of this encounter Care Teams Advertising Campaign Manager Relationship Specialty Start Date End Date Elsewhere, Pcp PCP - General Family Medicine 12/19/20 documented as of this encounter
--- OUTSIDE RECORDS SUMMARY | 2023-07-25 10:51 | XMS_ITS | Encounter Summary ---
Author Organization [facility] Address [address] [place] [address] Care Team Providers Care Genetic Coordinator Name Role Phone Elsewhere, Pcp Primary Care Provider Unavailabl e Encounter Details Date Type Department Care Team (Late st Contact Info) Description 03/11/2002 Historical Ophthalmology [facility] Carlos Zendejas M.D. [address] [place] [address] Social History Tobacco Use Types Packs/Day Years Used Date Smoking Tobacco: Never Assessed Sex and Gender Information Value Date Recorded Sex Assigned at Female 01/25/2022 2:30 PM TRUCK LEASING MANAGER Gender Identity Female 01/25/2022 2:30 PM TRUCK LEASING MANAGER Sexual Orientation Straight 01/25/2022 2: 30 PM TRUCK LEASING MANAGER documented as of this encounter Progress [...] rechek prn CDM Reports - EYEGEN Id: [id number] Status: Fnl documented in this encounter Plan of Treatment Not on file documented as of this encounter Visit Diagnoses Not on filedocumented in this encounter Additional Health Concerns Infection Onset Date Last Indicated Resolved Time COVID19 Pending 12/17/2020 12/17/2020 01/06/2021 4 :54 AM TRUCK LEASING MANAGER documented as of this encounter Care Teams Genetic Coordinator Relationship Specialty Start Date End Date Elsewhere, Pcp PCP - General Family Medicine 12/19/20 documented as of this encounter
--- OUTSIDE RECORDS SUMMARY | 2023-07-25 10:51 | XMS_ITS | Encounter Summary ---
Author Organization [facility] Address [address] [place] [address] Care Team Providers Care Journeyman Meat Cutter Name Role Phone Elsewhere, Pcp Primary Care Provider Unavailabl e Reason for Referral * Outpatient (Routine) - Authorized Specialty Diagnoses / Procedures Referred By Contac t Referred To Contact Neurology Juan Jose Martin M.B., Ch.B. [address] [place] [address] [facility] Region Referral ID Status Reason Start Date Expiration Date V isits Requested Visits Authorized [id number] Authorized 04/24/2023 10/23/2024 1 1 * MRI/CAT/PET Scan (Routine) - Pending Review Specialty Diagnoses / Procedures Referred By Contac t Referred To Contact Radiology Diagnoses Multiple Sclerosis (HCC) Procedures MR Brain without and with IV Contrast Juan Jose Martin M.B., Ch.B. [address] [place] [address] [facility] Region Referral ID Status Reason Start Date Expiration Date V isits Requested Visits Authorized [id number] Pending Review 04/24/2023 04/23/2024 1 1 * Physical Therapy (Routine) - Authorized Specialty Diagnoses / Procedures Referred By David arnold Referred To Contact Diagnoses Multiple Sclerosis (HCC) Procedures PT Evaluate and treat Juan Jose Martin M.B., Ch.B. [address] [place] [phone] [facility] Region Referral ID Status Reason Start Date Expiration Date V isits Requested Visits Authorized [id number] Authorized 04/24/2023 04/23/2024 1 1 Reason for Visit * Reason Comments Multiple Sclerosis fu * Outpatient (Routine) - Closed Specialty Diagnoses / Procedures Referred By David arnold Referred To Contact Neurology Diagnoses Multiple Sclerosis (HCC) Laurence Mujica P.A.-C. [address] [place] [phone] [facility] Referral ID Status Reason Start Date Expiration Date V isits Requested Visits Authorized [id number] Closed Specialty Services Required 07/14/2022 07/14/2023 1 1 Encounter Details Date Type Department Care Team (Late st Contact Info) Description 04/24/2023 9:30 AM CDT Office Visit Department of Neurology in [address] [address] Juan Jose Martin M.B., Ch.B. [address] [place] [phone] Multiple Sclerosis (HCC) (Primary Dx); Other Optic Atrophy Right Eye; Numbness; Ataxia Sensory; Diabetes Mellitus Type 2 With Diabetic Neuropathy (HCC) Discharge Disposition: Home or Self Care Social History Tobacco Use Types Packs/Day Years Used Date Smoking Tobacco: Light Smoker Smokeless Tobacco: Never Tobacco Cessation:Ready to Q uit: Not Asked; Counseling Given: Not Answered Comments:Smokes more when stressed [facility] Utilities Answer Date Recorded In the past 12 months has th e [employer], gas, oil, or water [employer] threatened to shut off services in your [...] declined 01/25/2022 How often do you attend taoist or restoration serv ices? Never 01/25/2022 Do you belong to any clubs o r organizations such as taoist groups, unions, fraternal or athletic groups, or [...] medical care, and heating? Very hard 01/25/2022 [facility] of Occupat ional Health - Occupational Stress [...] place to sleep or slept in a long term (including now)? No 01/25/2022 Nutrition Answer Date [...] Sex Assigned at Female 01/25/2022 2:30 PM DIRECTOR OF STRATEGIC MARKETING Gender Identity Female 01/25/2022 2:30 PM DIRECTOR OF STRATEGIC MARKETING Sexual Orientation Straight 01/25/2022 2: 30 PM DIRECTOR OF STRATEGIC MARKETING documented as of this encounter Last Filed [...] blindness postsinus surgery, who presented at the [facility] on 04/24/2023 as a [...] her current neurologist is Dr. Alvarado in [place]. Last motor exam in 06/2020 at that time she had normal strength in the upper extremity, with weakness of hip flexion, knee extension, and dorsiflexion. She was recently evaluated by my colleague Dr. Allred on 12/18/2020 when she presented with sudden bilateral lower extremity weakness and numbness, at that admission concern was for possible MS relapse, was initially transferred from [facility] and subsequently IVMP 1000 mg daily [...] started on Tecfidera by Dr Alvarado in [place]. At baseline, she has tingling and numbness [...] BRAIN WWO, MR SPINE CERVICAL WWO LOCATION: [facility] MEDICAL IMAGING DATE: 02/19/2023 INDICATION: Multiple [...] BRAIN WWO, MR SPINE CERVICAL WWO LOCATION: [facility] MEDICAL IMAGING DATE: 02/19/2023 INDICATION: Multiple [...] BRAIN WWO, MR SPINE CERVICAL WWO LOCATION: [facility] MEDICAL IMAGING DATE: 02/19/2023 INDICATION: Multiple [...] Tech: CLAUDIA Referring MD: SMITHA REDMAN [facility] ReadingLocation: [facility] Patient Location: Inpatient. Procedure: 2D, Color [...] . This study was interpreted by an [facility] accredited facility. CC: Laurence Mujica. Final [...] was performed of the tract to 20 Spanish Then, a 16-Spanish Peng catheter was inserted overthe wire into [...] suprapubic catheter tract with placement of 16 Spanish suprapubic Peng catheter. Please contact me with any questions. Chandler Cosby MD Vascular & Interventional Radiology at [facility] [phone] Pager: [phone] [email or web address] ASSESSMENT / PLAN Impression: Multiple sclerosis with [...] include both face to face and non yeum-yg-yjli time, of this about 15 minutes or so were spent in education, counseling and coordinating future care across multiple specialties. The decision-making was highly complex. Advance Care Planning full code on file Advance directives were discussed and material provided. Advance Care Planning Health Care Power of Assistant Coach: [ Not available ] Neurological Prognosis: [ [...] content. Taiwo Espino, Ch.B. Board Certified Neurologist Neuro-Rug Shampooer 04/24/23 11:22 AM CDT documented in this [...] (HCC) documented in this encounter Care Teams Journeyman Meat Cutter Relationship Specialty Start Date End Date Elsewhere, Pcp PCP - General Family Medicine 12/19/20 documented as of this encounter
--- OUTSIDE RECORDS SUMMARY | 2023-07-25 10:51 | XMS_ITS | Referral Summary ---
Author Organization [facility] Address [address] [place] [address] Care Team Providers Care Bailing Machine Operator Name Role Phone Roddy Trevino Primary Care Provider [phone] Allergies Active Allergy Reactions Criticality Noted Date [...] (198 lb 9.6 oz) 04/10/2012 9:25 AM REFRIGERATOR REPAIRMAN Height 171 cm (5' 7.32) 04/10/2012 9:2 5 AM REFRIGERATOR REPAIRMAN Body Mass Index 30.81 04/10/2012 9:25 AM REFRIGERATOR REPAIRMAN Plan of Treatment Not on file Care Teams Bailing Machine Operator Relationship Specialty Start Date End Date Roddy Trevino PCP - General 12/14/10
--- OUTSIDE RECORDS SUMMARY | 2023-07-25 10:51 | XMS_ITS ---
Author Organization [facility] Address [address] [place] [address] Care Team Providers Care Livestock Ranch Hand Name Role Phone Unavailable Unavailable Unavailable Surgery Details Not on file Complications Check Surgery Details section. Procedure Estimated Blood Loss Check Surgery Details section. Procedure Findings Check Surgery Details section. Procedure Specimens Taken Check Surgery Details section.
--- OUTSIDE RECORDS SUMMARY | 2023-07-25 10:51 | XMS_ITS | Encounter Summary ---
Author Organization [facility] Address [address] [place] [address] Care Team Providers Care Human Capital Manager Name Role Phone Elsewhere, Pcp Primary Care Provider Unavailabl e Reason for Visit * Reason Onset Date Comments Form Review 05/14/2023 [place] [id number] E ncounter Encounter Details Date Type Department Care Team (Latest Contact Info) Description 05/14/2023 Clinical Communication Department of Neurology in [place], [place] [address] [place] [address] Juan Jose Martin M.B., Ch.B. [address] [place] [phone] Form Review ([address] Encounter) Social History Tobacco Use Types Packs/Day Years Used Date Smoking Tobacco: Light Smoker Smokeless Tobacco: Never Comments:Smokes more when st [facility] Utilities Answer Date Recorded In the [...] declined 01/25/2022 How often do you attend buddhist or uatsdin serv ices? Never 01/25/2022 Do you belong to any clubs o r organizations such as buddhist groups, unions, fraternal or athletic groups, or [...] medical care, and heating? Very hard 01/25/2022 [facility] of Occupat ional Health - Occupational Stress [...] place to sleep or slept in a jail (including now)? No 01/25/2022 Nutrition Answer Date [...] Sex Assigned at Female 01/25/2022 2:30 PM DISPATCHER CLERK Gender Identity Female 01/25/2022 2:30 PM DISPATCHER CLERK Sexual Orientation Straight 01/25/2022 2: 30 PM DISPATCHER CLERK documented as of this encounter Miscellaneous Notes * Telephone Encounter - Raisa Jaquez L.P.N. - 05/17/2023 10:16 AM CDT Form faxed back to facility and sent for scanning. * Telephone Encounter - Raisa Jaquez L.P.N. - 05/14/2023 10:11 AM CDT Form was emailed to Dr. Martin for electronic review/signature. ASSISTED LIVING NURSING DIRECTOR: [employer] [facility] PHONE NUMBER: [phone] [facility] Encounter INSTRUCTIONS: Fax information to [phone] documented in this encounter Plan of Treatment Not on file documented as of this encounter Visit Diagnoses Not on filedocumented in this encounter Care Teams Human Capital Manager Relationship Specialty Start Date End Date Elsewhere, Pcp PCP - General Family Medicine 12/19/20 documented as of this encounter
--- OUTSIDE RECORDS SUMMARY | 2023-07-25 10:51 | XMS_ITS | Encounter Summary ---
Author Organization [facility] Address [address] [place] [address] Care Team Providers Care Alternative Energy Technician Name Role Phone Elsewhere, Pcp Primary Care Provider Unavailabl e Encounter Details Date Type Department Care Team (Late st Contact Info) Description 01/22/2004 Historical Ophthalmology RST OPH Roddy Palmer M.D. [address] [place] [phone] Social History Tobacco Use Types Packs/Day Years Used Date Smoking Tobacco: Never Assessed Sex and Gender Information Value Date Recorded Sex Assigned at Female 01/25/2022 2:30 PM CITY ADMINISTRATOR Gender Identity Female 01/25/2022 2:30 PM CITY ADMINISTRATOR Sexual Orientation Straight 01/25/2022 2: 30 PM CITY ADMINISTRATOR documented as of this encounter Progress Notes [...] from a refration. Will continue prednisolone at [place], recheck 3 weeks with refraction. DIAGNOSIS #1 Episcleritis, scleritis #2 Optic atrophy R #3 Pars planitis L CDM Reports - EYEGEN Id: [id number] Status: Fnl documented in this encounter Plan of Treatment Not on file documented as of this encounter Visit Diagnoses Not on filedocumented in this encounter Additional Health Concerns Infection Onset Date Last Indicated Resolved Time COVID19 Pending 12/17/2020 12/17/2020 01/06/2021 4 :54 AM CITY ADMINISTRATOR documented as of this encounter Care Teams Alternative Energy Technician Relationship Specialty Start Date End Date Elsewhere, Pcp PCP - General Family Medicine 12/19/20 documented as of this encounter
--- OUTSIDE RECORDS SUMMARY | 2023-07-25 10:51 | XMS_ITS | Encounter Summary ---
Author Organization [facility] Address [address] [place] [address] Care Team Providers Care Microsoft Bi Architect Name Role Phone Elsewhere, Pcp Primary Care Provider Unavailabl e Encounter Details Date Type Department Care Team (Late st Contact Info) Description 03/26/2015 Historical Ophthalmology RST OPH Adolph De Santiago M.D., Ph.D. [address] [place] [address] Social History Tobacco Use Types Packs/Day Years Used Date Smoking Tobacco: Never Assessed Sex and Gender Information Value Date Recorded Sex Assigned at Female 01/25/2022 2:30 PM CLOTH TRIMMER HAND Gender Identity Female 01/25/2022 2:30 PM CLOTH TRIMMER HAND Sexual Orientation Straight 01/25/2022 2: 30 PM CLOTH TRIMMER HAND documented as of this encounter Progress Notes [...] light perception) #8 new optic perineuritis, right [facility] Reports - EYEGEN Id: [id number] Status: Fnl documented in this encounter Plan of Treatment Not on file documented as of this encounter Visit Diagnoses Not on filedocumented in this encounter Additional Health Concerns Infection Onset Date Last Indicated Resolved Time COVID19 Pending 12/17/2020 12/17/2020 01/06/2021 4 :54 AM CLOTH TRIMMER HAND documented as of this encounter Care Teams Microsoft Bi Architect Relationship Specialty Start Date End Date Elsewhere, Pcp PCP - General Family Medicine 12/19/20 documented as of this encounter
--- OUTSIDE RECORDS SUMMARY | 2023-07-25 10:51 | XMS_ITS | Referral Summary ---
Author Organization [facility] Address [address] [place] [address] Care Team Providers Care Assistant Branch Manager Name Role Phone Elsewhere, Pcp Primary Care Provider Unavailabl e Source Comments Patient records contain information from all sites at [facility]. For routine questions regarding patient records, call [phone] during business hours, M-F 8:00 AM - 5:00 PM Central Time. Record requests for emergency care only can be directed to [phone] at any time.[facility] Encounters Date Type Department Care Team Description 05/14/2023 Clinical Communication Department of Neurology in [address] [phone] Juan Jose Martin M.B., Ch.B. Form Review ([facility] Encounter) 04/25/2023 Clinical Communication Department of Neurology in [address] [phone] Juan Jose Martin M.B., Ch.B. External PT order 04/24/2023 9:30 AM CDT Office Visit Department of Neurology in [address] [phone] Juan Jose Martin M.B., Ch.B. Multiple Sclerosis [...] Given: Not Answered Comments:Smokes more when stressed [facility] Utilities Answer Date Recorded In the [...] How often do you attend buddhist or methodist serv ices? Never 01/25/2022 Do [...] medical care, and heating? Very hard 01/25/2022 [facility] [place] of Occupat ional Health - Occupational Stress [...] place to sleep or slept in a mcc (including now)? No 01/25/2022 Nutrition Answer Date [...] Sex Assigned at Female 01/25/2022 2:30 PM CLINIC SUPERVISOR Gender Identity Female 01/25/2022 2:30 PM CLINIC SUPERVISOR Sexual Orientation Straight 01/25/2022 2: 30 PM CLINIC SUPERVISOR Last Filed Vital Signs Vital Sign Reading Time Taken Comments Blood Pressure 96/66 04/24/2023 9:27 AM CDT Pulse 73 04/24/2023 9:27 AM CDT Temperature 36.6 ??C (97.9 ??F) 12/19/2020 6:19 AM CS T Respiratory Rate 16 12/19/2020 6:19 AM CLINIC SUPERVISOR Oxygen Saturation 94% 12/19/2020 6:19 AM CLINIC SUPERVISOR Inhaled Oxygen Concentration - - Weight 104 kg (228 lb 13.4 oz) 12/28/2020 8:51 A M CLINIC SUPERVISOR Height 175.3 cm (5' 9) 12/17/2020 10:53 PM CLINIC SUPERVISOR Body Mass Index 33.79 12/17/2020 10:53 PM CLINIC SUPERVISOR Plan of Treatment Not on file Medical Devices Implanted Type Area Store Hand Device Identifier Shelf Expiration Date Model / [...] HORMONE-SENSITIVE (S-TSH), S Routine 03/11/2023 4:45 AM CLINIC SUPERVISOR EXTI LIPID PANEL W REFLEX MEASURED LDL Routine 11/30/2022 4:09 PM CDT BI BREAST SCREENING BILATERAL WITH TOMOSYNTHESIS Routine 06/07/2022 9:19 AM CDT OPHTHALMOLOGY IMAGE EXAM Routine 03/26/2015 12:00 AM CLINIC SUPERVISOR CHRONIC VIRAL HEPATITIS PROFILE Routine 04/28/2014 6:41 PM CDT HIV-1/-2 AG AND AB SCREEN Routine 04/28/2014 6:41 PM CDT HEMOGLOBIN A1C, B Routine 04/27/2014 1:2 2 PM CDT from Last 3 Months or Most Recently Relevant to Health Maintenance Results * OPHTHALMOLOGY IMAGE EXAM (03/26/2015 12:00 AM CLINIC SUPERVISOR) Anatomical Region Laterality Modality Other 03/26/2015 Addenda Addendum by ProviderJames M.D. on 03/26/2015 12:00 AM CLINIC SUPERVISOR OPH^^^MCR Eyes Visual [place] 03/26/2015 00:00:00 Historical Provider IMG NON RAD IMAGING PROCEDURES * HIV-1/-2 Ag and Ab Screen (04/28/2014 6:41 PM CDT) Pathologist [facility] HIV-1/-2 Ag and Ab Screen, S Negative Negative [facility] Comment: Negative result does not rule out HIV infection. If ? acute HIV infection is suspected in a high-risk ? individual, submit plasma specimen for HIV-1 RNA ? quantification test (HIVQU) and/or HIV-2 DNA/RNA ? test (FHV2Q). ? 04/28/2014 6:41 PM CDT 04/28/2014 6:41 PM CDT Cirilo Mendez M.D. LAB MICROB IOLOGY - BLOOD ORDERABLES [facility] [address] * Chronic Hepatitis Profile (04/28/2014 6:41 PM CDT) HBs Antigen, S Negative Negative [facility] HBc Total Ab, S Negative Negative [facility] HBs Antibody,S Negative Unvaccinated : Negative; Vaccinated: Positive [facility] Comment:Patient is presumed to be not immune to infection with HBV. HBs Antibody, Quantitative, S <5.0 Unvaccinated : <5.0; Vaccinated: >=12.0 MIU/ML [facility] HCV Ab, S Negative Negative [facility] Comment:Phswyh-fw-vstdkk rat io is <1.00. 04/28/2014 6:41 PM CDT 04/28/2014 6:41 PM CDT Cirilo Mendez M.D. LAB MICROB IOLOGY - BLOOD ORDERABLES [facility] [address] * Hemoglobin A1c (04/27/2014 1:22 PM CDT) Hemoglobin A1c, B 5.1 4.0 - 6.0 % [facility] 04/27/2014 1:22 PM CDT 04/27/2014 1:22 PM CDT Db Sousa M.D., M.A. LAB BLOOD ADD -ON Performing Organization Address City/[facility]/ZIP Co de Phone Number [facility] [address] from Last 3 Months or Most Recently Relevant to Health Maintenance Advance Directives For more information, please contact: [phone] * Full Code (Latest Code Status on File) Date Activated Date Inactivated Comments 12/18/2020 1:35 AM 12/19/2020 3:25 PM Question Answer Comments Full Code: Discussed Care Teams Assistant Branch Manager Relationship Specialty Start Date End Date Elsewhere, Pcp PCP - General Family Medicine 12/19/20
--- OUTSIDE RECORDS SUMMARY | 2023-07-25 10:51 | XMS_ITS | Encounter Summary ---
Author Organization [facility] Address [address] [place] [address] Care Team Providers Care Drugless Physician Name Role Phone Elsewhere, Pcp Primary Care Provider Unavailabl e Encounter Details Date Type Department Care Team (Late st Contact Info) Description 02/16/2004 Historical Ophthalmology [facility] O[facility] Roddy Palmer M.D. [address] [place] [phone] Social History Tobacco Use Types Packs/Day Years Used Date Smoking Tobacco: Never Assessed Sex and Gender Information Value Date Recorded Sex Assigned at Female 01/25/2022 2:30 PM RNFA Gender Identity Female 01/25/2022 2:30 PM RNFA Sexual Orientation Straight 01/25/2022 2: 30 PM RNFA documented as of this encounter Progress Notes [...] #3 Pars planitis L [facility] Id: [id number] Status: Fnl documented in this encounter Plan of Treatment Not on file documented as of this encounter Visit Diagnoses Not on filedocumented in this encounter Additional Health Concerns Infection Onset Date Last Indicated Resolved Time COVID19 Pending 12/17/2020 12/17/2020 01/06/2021 4 :54 AM RNFA documented as of this encounter Care Teams Drugless Physician Relationship Specialty Start Date End Date Elsewhere, Pcp PCP - General Family Medicine 12/19/20 documented as of this encounter
--- OUTSIDE RECORDS SUMMARY | 2023-07-25 10:51 | XMS_ITS | Encounter Summary ---
Author Organization [facility] Address [address] [place] [address] Care Team Providers Care Transit Bus Operator Name Role Phone Elsewhere, Pcp Primary Care Provider Unavailabl e Encounter Details Date Type Department Care Team (Late st Contact Info) Description 12/15/2014 Historical Ophthalmology RST OPH Adolph De Santiago M.D., Ph.D. [address] [place] [address] Social History Tobacco Use Types Packs/Day Years Used Date Smoking Tobacco: Never Assessed Sex and Gender Information Value Date Recorded Sex Assigned at Female 01/25/2022 2:30 PM CAKE CUTTER MACHINE Gender Identity Female 01/25/2022 2:30 PM CAKE CUTTER MACHINE Sexual Orientation Straight 01/25/2022 2: 30 PM CAKE CUTTER MACHINE documented as of this encounter Progress Notes [...] (remains no light perception) CDM Reports - EYEExhbit Id: [id number] Status: Fnl documented in this encounter Plan of Treatment Not on file documented as of this encounter Visit Diagnoses Not on filedocumented in this encounter Additional Health Concerns Infection Onset Date Last Indicated Resolved Time COVID19 Pending 12/17/2020 12/17/2020 01/06/2021 4 :54 AM CAKE CUTTER MACHINE documented as of this encounter Care Teams Transit Bus Operator Relationship Specialty Start Date End Date Elsewhere, Pcp PCP - General Family Medicine 12/19/20 documented as of this encounter
--- OUTSIDE RECORDS SUMMARY | 2023-07-25 10:51 | XMS_ITS | Encounter Summary ---
Author Organization [facility] Address [address] [place] [address] Care Team Providers Care Web Page Designer Name Role Phone Elsewhere, Pcp Primary Care Provider Unavailabl e Encounter Details Date Type Department Care Team (Late st Contact Info) Description 08/21/2014 Historical Ophthalmology RST OPH Adolph De Santiago M.D., Ph.D. [address] [place] [address] Social History Tobacco Use Types Packs/Day Years Used Date Smoking Tobacco: Never Assessed Sex and Gender Information Value Date Recorded Sex Assigned at Female 01/25/2022 2:30 PM MEDIA MANAGER Gender Identity Female 01/25/2022 2:30 PM MEDIA MANAGER Sexual Orientation Straight 01/25/2022 2: 30 PM MEDIA MANAGER documented as of this encounter Progress [...] eye or something. She was inpatient at [facility] in April [address] Marroquin for a right periorbital lesion.On 04/29/14, ENT took the patient to the operating room and performed an aspiration and culture, orbital, periorbital, and paranasal sinus contents. Pathology showed chronic inflammation with no sign of infection. The patient was transferred to [facility] yesterday (08/20/14) from [facility] in [place] for right sided hemiplegia and hemisensory loss due to MS Exacerbation. She was started in IV steroids yesterday at 1000 mg/day for four days. She has received her dosage today starting at 8 am. The pain had been improving behind the right eye, but woke up this past Sunday with worse pain behind the right eye. From [facility] Admission note: Ms. Muhammad is a [...] has not followed-up in 3-5 years witha assembler filters. She presented to the [place] ED with progressive right sided hemisensory loss, [...] at home she has been taking Lyrica, [place], and Vicodin; however she is unsure what [...] light perception) CDM Reports - EYEGEN Id: [id number] Status: Fnl documented in this encounter Plan of Treatment Not on file documented as of this encounter Visit Diagnoses Not on filedocumented in this encounter Additional Health Concerns Infection Onset Date Last Indicated Resolved Time COVID19 Pending 12/17/2020 12/17/2020 01/06/2021 4 :54 AM MEDIA MANAGER documented as of this encounter Care Teams Web Page Designer Relationship Specialty Start Date End Date Elsewhere, Pcp PCP - General Family Medicine 12/19/20 documented as of this encounter
--- OUTSIDE RECORDS SUMMARY | 2023-07-25 10:51 | XMS_ITS | Encounter Summary ---
Author Organization [facility] Address [address] [place] [address] Care Team Providers Care Atv Mechanic Name Role Phone Elsewhere, Pcp Primary Care Provider Unavailabl e Encounter Details Date Type Department Care Team (Late st Contact Info) Description 07/20/2006 Historical Ophthalmology RST OPH Roddy Palmer M.D. [address] [place] [id number] Social History Tobacco Use Types Packs/Day Years Used Date Smoking Tobacco: Never Assessed Sex and Gender Information Value Date Recorded Sex Assigned at Female 01/25/2022 2:30 PM TRIM STENCIL MAKER Gender Identity Female 01/25/2022 2:30 PM TRIM STENCIL MAKER Sexual Orientation Straight 01/25/2022 2: 30 PM TRIM STENCIL MAKER documented as of this encounter Progress Notes [...] left eye. CD Reports - EYEGEN Id: [id number] Status: Fnl documented in this encounter Plan of Treatment Not on file documented as of this encounter Visit Diagnoses Not on filedocumented in this encounter Additional Health Concerns Infection Onset Date Last Indicated Resolved Time COVID19 Pending 12/17/2020 12/17/2020 01/06/2021 4 :54 AM TRIM STENCIL MAKER documented as of this encounter Care Teams Atv Mechanic Relationship Specialty Start Date End Date Elsewhere, Pcp PCP - General Family Medicine 12/19/20 documented as of this encounter
--- OUTSIDE RECORDS SUMMARY | 2023-07-25 10:51 | XMS_ITS | Clinical Summary ---
Author Organization [facility] Address [address] [place] [address] Care Team Providers Care Eligibility Counselor Name Role Phone Elsewhere, Pcp Primary Care Provider Unavailabl e Source Comments Patient records contain information from all sites at [facility]. For routine questions regarding patient records, call [phone] during business hours, M-F 8:00 AM - 5:00 PM Central Time. Record requests for emergency care only can be directed to [phone] at any time.[facility] Allergies Active Allergy Reactions Criticality Noted Date [...] 05/14/2023 Clinical Communication Department of Neurology in [address] [phone] Juan Jose Martin M.B., Ch.B. Form Review ([facility] F2F Encounter) 04/25/2023 Clinical Communication Department of Neurology in [address] [phone] Juan Jose Martin M.B., Ch.B. External PT order 04/24/2023 9:30 AM CDT Office Visit Department of Neurology in [address] [phone] Juan Jose Martin M.B., Ch.B. Multiple Sclerosis [...] Not Answered Comments:Smokes more when stressed [facility] Utilities Answer Date Recorded In the [...] declined 01/25/2022 How often do you attend orthodoxy or adventist serv ices? Never 01/25/2022 Do you belong to any clubs o r organizations such as orthodoxy groups, unions, fraternal or athletic groups, or [...] medical care, and heating? Very hard 01/25/2022 [place] of Occupat ional Health - Occupational Stress [...] place to sleep or slept in a assisted (including now)? No 01/25/2022 Nutrition Answer Date [...] Sex Assigned at Female 01/25/2022 2:30 PM CUSTOMER DEVELOPMENT MANAGER Gender Identity Female 01/25/2022 2:30 PM CUSTOMER DEVELOPMENT MANAGER Sexual Orientation Straight 01/25/2022 2: 30 PM CUSTOMER DEVELOPMENT MANAGER Last Filed Vital Signs Vital Sign Reading Time Taken Comments Blood Pressure 96/66 04/24/2023 9:27 AM CDT Pulse 73 04/24/2023 9:27 AM CDT Temperature 36.6 ??C (97.9 ??F) 12/19/2020 6:19 AM CS T Respiratory Rate 16 12/19/2020 6:19 AM CUSTOMER DEVELOPMENT MANAGER Oxygen Saturation 94% 12/19/2020 6:19 AM CUSTOMER DEVELOPMENT MANAGER Inhaled Oxygen Concentration - - Weight 104 kg (228 lb 13.4 oz) 12/28/2020 8:51 A M CUSTOMER DEVELOPMENT MANAGER Height 175.3 cm (5' 9) 12/17/2020 10:53 PM CUSTOMER DEVELOPMENT MANAGER Body Mass Index 33.79 12/17/2020 10:53 PM CUSTOMER DEVELOPMENT MANAGER Plan of Treatment Health Maintenance Due Date [...] this topic Medical Devices Implanted Type Area Technology Lab Teacher Device Identifier Shelf Expiration Date Model / [...] HORMONE-SENSITIVE (S-TSH), S Routine 03/11/2023 4:45 AM CUSTOMER DEVELOPMENT MANAGER EXTI LIPID PANEL W REFLEX MEASURED LDL Routine 11/30/2022 4:09 PM CDT BI BREAST SCREENING BILATERAL WITH TOMOSYNTHESIS Routine 06/07/2022 9:19 AM CDT OPHTHALMOLOGY IMAGE EXAM Routine 03/26/2015 12:00 AM CUSTOMER DEVELOPMENT MANAGER CHRONIC VIRAL HEPATITIS PROFILE Routine 04/28/2014 6:41 PM CDT HIV-1/-2 AG AND AB SCREEN Routine 04/28/2014 6:41 PM CDT HEMOGLOBIN A1C, B Routine 04/27/2014 1:2 2 PM CDT from Last 3 Months or Most Recently Relevant to Health Maintenance Results * OPHTHALMOLOGY IMAGE EXAM (03/26/2015 12:00 AM CUSTOMER DEVELOPMENT MANAGER) Anatomical Region Laterality Modality Other 03/26/2015 Addenda Addendum by ProviderJames M.D. on 03/26/2015 12:00 AM CUSTOMER DEVELOPMENT MANAGER OPH^^^MCR Eyes Visual Landrum 03/26/2015 00:00:00 Historical Provider IMG NON RAD IMAGING PROCEDURES * HIV-1/-2 Ag and Ab Screen (04/28/2014 6:41 PM CDT) [facility] HIV-1/-2 Ag and Ab Screen, S Negative Negative [facility] Comment: Negative result does not rule out HIV infection. If ? acute HIV infection is suspected in a high-risk ? individual, submit plasma specimen for HIV-1 RNA ? quantification test (HIVQU) and/or HIV-2 DNA/RNA ? test (FHV2Q). ? 04/28/2014 6:41 PM CDT 04/28/2014 6:41 PM CDT Cirilo Mendez M.D. LAB MICROB IOLOGY - BLOOD ORDERABLES [facility] [address] [place] [address], [facility] * Chronic Hepatitis Profile (04/28/2014 6:41 PM CDT) HBs Antigen, S Negative Negative [facility] HBc Total Ab, S Negative Negative [facility] HBs Antibody,S Negative Unvaccinated : Negative; Vaccinated: Positive [facility] Comment:Patient is presumed to be not immune to infection with HBV. HBs Antibody, Quantitative, S <5.0 Unvaccinated : <5.0; Vaccinated: >=12.0 MIU/ML [facility] HCV Ab, S Negative Negative [facility] Comment:Galmnf-do-kzhudo rat io is <1.00. 04/28/2014 6:41 PM CDT 04/28/2014 6:41 PM CDT Cirilo Mendez M.D. LAB MICROB IOLOGY - BLOOD ORDERABLES [facility] [address] * Hemoglobin A1c (04/27/2014 1:22 PM CDT) Hemoglobin A1c, B 5.1 4.0 - 6.0 % [facility] 04/27/2014 1:22 PM CDT 04/27/2014 1:22 PM CDT Db Sousa M.D., M.A. LAB BLOOD ADD -ON Performing Organization Address City/[facility]/ZIP Co de Phone Number [facility] [address] from Last 3 Months or Most Recently Relevant to Health Maintenance Advance Directives For more information, please contact: [phone] * Full Code (Latest Code Status on File) Date Activated Date Inactivated Comments 12/18/2020 1:35 AM 12/19/2020 3:25 PM Question Answer Comments Full Code: Discussed Care Teams Eligibility Counselor Relationship Specialty Start Date End Date Elsewhere, Pcp PCP - General Family Medicine 12/19/20
--- OUTSIDE RECORDS SUMMARY | 2023-07-25 10:51 | XMS_ITS | Encounter Summary ---
Author Organization [facility] Address [address] [place] [address] Care Team Providers Care Sugar Mixer Name Role Phone Elsewhere, Pcp Primary Care Provider Unavailabl e Reason for Referral * Physical Therapy (Routine) - Authorized Specialty Diagnoses / Procedures Referred By David arnold Referred To Contact Physical Therapy Diagnoses Demyelinating Disease Central Nervous System (HCC) Wu Herrera M.B., Ch.B. [address] [place] [phone] Referral ID Status Reason Start Date Expiration Date Visits Requested Visits Authorized [id number] Authorized Service not available in [facility] 04/30/2023 10/29/2024 1 1 Reason for Visit * Reason Onset Date Comments External PT order 04/25/2023 Encounter Details Date Type Department Care Team (Latest Contact Info) Description 04/25/2023 Clinical Communication Department of Neurology in [address] [phone] Wu Herrera M.B., Ch.B. [address] [place] [phone] External PT order Social History Tobacco Use Types Packs/Day Years Used Date Smoking Tobacco: Light Smoker Smokeless Tobacco: Never Comments:Smokes more when st [facility] Utilities Answer Date Recorded In the [...] declined 01/25/2022 How often do you attend quaker or jain serv ices? Never 01/25/2022 Do you belong to any clubs o r organizations such as quaker groups, unions, fraternal or athletic groups, or [...] medical care, and heating? Very hard 01/25/2022 [place] of Occupat ional Health - Occupational Stress [...] place to sleep or slept in a half-way (including now)? No 01/25/2022 Nutrition Answer Date [...] Sex Assigned at Female 01/25/2022 2:30 PM PREPARED FOODS SERVICE TEAM MEMBER Gender Identity Female 01/25/2022 2:30 PM PREPARED FOODS SERVICE TEAM MEMBER Sexual Orientation Straight 01/25/2022 2: 30 PM PREPARED FOODS SERVICE TEAM MEMBER documented as of this encounter Miscellaneous Notes * Addendum Note - Wu Herrera M.B., Ch.B. - 04/30/2023 3:45 PM CDTAddended by: WU HERRERA on: 04/30/2023 03:45 PM Modules accepted: Orders * Telephone Encounter - Megan Perez M.S.N., R.N. - 04/30/2023 3:36 PM CDT [facility] explained the agency they have 48 [...] of the agency which provided the service. BUSH HOG OPERATOR contacted [facility] and spoke with Araceli who confirmed that patient has received PT services from them in the past. Araceli said that the order can be faxed to them and it will be reviewed by the nurse project program manager and they will let us know if they are able to provide the service requested. Order along with face sheet faxed to [facility] Fax @ [phone] Patient was also called and updated on the agency where order was faxed. * Telephone Encounter - Wu Herrera M.B., Ch.B. - 04/25/2023 3:20 PM CDT I have put in the order for the external PT, please fax to patient. * Telephone Encounter - eMgan Perez M.SJosee, R.N. - 04/25/2023 10:12 AM CDT ----- Message from Yara Rubi sent at 04/25/2023 9:22 AM CDT ----- Patient will need outside order for PT in [place]. Thank you. documented in this encounter Plan of Treatment Not on file documented as of this encounter Visit Diagnoses Diagnosis Demyelinating Disease Central Nervous System (HCC)- Primary documented in this encounter Care Teams Sugar Mixer Relationship Specialty Start Date End Date Elsewhere, Pcp PCP - General Family Medicine 12/19/20 documented as of this encounter
--- OUTSIDE RECORDS SUMMARY | 2023-07-25 10:51 | XMS_ITS | Encounter Summary ---
Author Organization [facility] Address [address] [place] [address] Care Team Providers Care Ic Designer Standard Cells Name Role Phone Elsewhere, Pcp Primary Care Provider Unavailabl e Encounter Details Date Type Department Care Team (Late st Contact Info) Description 04/29/2014 Historical Ophthalmology RST OPH Gracie Marroquin M.D. [address] [place] [address] Social History Tobacco Use Types Packs/Day Years Used Date Smoking Tobacco: Never Assessed Sex and Gender Information Value Date Recorded Sex Assigned at Female 01/25/2022 2:30 PM CHAIN TENDER Gender Identity Female 01/25/2022 2:30 PM CHAIN TENDER Sexual Orientation Straight 01/25/2022 2: 30 PM CHAIN TENDER documented as of this encounter Progress Notes [...] Patient had a dilated eye exam at [facility] Missy Price on 04/27/14 swelling and pain of the right eye. His exam indicated a third nerve palsy and the patient was referred to Neurology at that time. She presented to [place] ED later that day and was admitted [...] Exam: MRI Hd wo&w Indications: ED Acute 16214/MRI Head/? galdino santos w R CN 3/5 palsy. special orb; t ORIGINAL REPORT - 27-Apr-2014 19:39:00 [facility] EXAM: MRI Brain without and with [...] surgery. Electronically signed by: Leatha Gunderson MD [id number] 27-Apr-2014 19:39 HR: confirmed above history. syptoms x last 1 week, pain around right eye, numbness and tingling inupper right face/forehead IMPRESSION / REPORT / PLAN Consult requested by: NEURO [phone] #1 Orbital inflammation, right #2 History of [...] Pseudophakia, left CDM Reports - EYEGEN Id: [id number] Status: Fnl documented in this encounter Plan of Treatment Not on file documented as of this encounter Visit Diagnoses Not on filedocumented in this encounter Additional Health Concerns Infection Onset Date Last Indicated Resolved Time COVID19 Pending 12/17/2020 12/17/2020 01/06/2021 4 :54 AM CHAIN TENDER documented as of this encounter Care Teams Ic Designer Standard Cells Relationship Specialty Start Date End Date Elsewhere, Pcp PCP - General Family Medicine 12/19/20 documented as of this encounter
--- OUTSIDE RECORDS SUMMARY | 2023-07-25 10:51 | XMS_ITS | Clinical Summary ---
Author Organization [facility] Address [address] [place] [address] Care Team Providers Care Kindergarten Assistant Name Role Phone Roddy Trevino Primary Care Provider Allergies Active Allergy [...] (198 lb 9.6 oz) 04/10/2012 9:25 AM TOOL CRIB CLERK Height 171 cm (5' 7.32) 04/10/2012 9:2 5 AM TOOL CRIB CLERK Body Mass Index 30.81 04/10/2012 9:25 AM TOOL CRIB CLERK Plan of Treatment Not on file Care Teams Kindergarten Assistant Relationship Specialty Start Date End Date Roddy Trevino PCP - General 12/14/10
--- OUTSIDE RECORDS SUMMARY | 2023-07-25 10:51 | XMS_ITS | Encounter Summary ---
Author Organization [facility] Address [address] [place] [address] Care Team Providers Care Land Leasing Information Clerk Name Role Phone Elsewhere, Pcp Primary Care Provider Unavailabl e Encounter Details Date Type Department Care Team (Late st Contact Info) Description 09/18/2014 Historical Ophthalmology RST OPH Kristen Westfall M.D. Social History Tobacco Use Types Packs/Day Years Used Date Smoking Tobacco: Never Assessed Sex and Gender Information Value Date Recorded Sex Assigned at Female 01/25/2022 2:30 PM LINUX DEVELOPER Gender Identity Female 01/25/2022 2:30 PM LINUX DEVELOPER Sexual Orientation Straight 01/25/2022 2: 30 PM LINUX DEVELOPER documented as of this encounter Progress Notes [...] / PLAN Consult requested by: Josi Martinez [phone] #1 Blurred vision left eye. Today she [...] optic atrophy. CD Reports - EYEGEN Id: [id number] Status: Fnl documented in this encounter Plan of Treatment Not on file documented as of this encounter Visit Diagnoses Not on filedocumented in this encounter Additional Health Concerns Infection Onset Date Last Indicated Resolved Time COVID19 Pending 12/17/2020 12/17/2020 01/06/2021 4 :54 AM LINUX DEVELOPER documented as of this encounter Care Teams Land Leasing Information Clerk Relationship Specialty Start Date End Date Elsewhere, Pcp PCP - General Family Medicine 12/19/20 documented as of this encounter
--- OUTSIDE RECORDS SUMMARY | 2023-07-25 10:52 | XMS_ITS | Clinical Summary ---
Author Organization [facility] Address [place], [place] [address] Care Team Providers Care Utility System Repairer Name Role Phone Laurence Mujica Primary Care Provider [phone] Yumiko Garcia MAINTENANCE ADVISOR Unavailable Unavailable Nga White MD Unavailable [phone] [facility] [place] Unavailable [phone] [facility] [place] Unavailable [phone] Allergies Active Allergy Reactions Criticality Noted Date [...] High 07/23/2007 Morphine Chest Pain,Palpitations 11/20/2012 Tolerated [place] 04/21/2014 And chest pains Mushroom Anaphylaxis High [...] bladder disorder,Multiple sclerosis (HC) As directed. 14 Belarusian straight cath for self cath up to [...] bed. Length of need 99 months. 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 Use with Keegan 2 sensor as per press department manager's directions 1 Each 2 Active Gauze Bandage [...] once daily if needed for Constipation. Active methocarbamoL (ROBAXIN) 500 mg tabletIndications:M uscle [...] 06/28/19 24 Discontinue d(Reorder (E-cancel not sent)) tiZANidine (ZANAFLEX) 4 mg tabletIndications:M uscle spasm Take 1 Tablet (4 mg) by mouth every 6 hours if needed for Muscle Spasm. 60 Tablet 2 4 07/09/19 24 Discontinue d(*Medicati on adjustment) ciprofloxacin HCl (CIPRO) 500 mg tabletIndications:L eft breast abscess Take 1 Tablet (500 mg) by mouth two times daily for 14 days. 28 Tablet 4 07/23/19 24 Active Problems Problem Noted Date Diagnosed [...] loss in right eye. Was seen at [place] by neurology and rheumatology, apparently had characteristic MRI with demyelinating lesions but numerous lumbar punctures have not demonstrated CSF protein abnormalities. Has been seen at [facility] neurology clinic. Currently following with Dr. Shepherd at [facility]. Started on Tysabri (monoclonal baldo) infusions in 2007. Continues to have progressive symptoms. 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 12/06/15--Neurologist is Dr. Ab Whittington- location [facility] ext [phone]. Currently being [...] 02/25/2021 02/25/2021 Overview: Overview: Created by Conversion [facility] Annotation: May 09 2011 2:19PM - Minerva [...] - ? Seizure, started on phenytoin by JASMYN. Then switched to Lyrica. Other convulsions 05/24/2007 [...] Encounters Date Type Department Care Team Description 07/23/2023 12:00 PM CDT Home Care Visit [facility] [address] [place] [phone] Radha Bob, RN SN - LONG VISIT (>90 MINUTES) 07/23/2023 Home Care Visit [facility] [address] [place] [phone] Luisa Velasquez RN CARE COORDINATION 07/20/2023 12:00 PM CDT Home Care Visit [facility] [address] [place] [phone] Socorro Barajas LPN CULLET WASHER - HOME VISIT 07/19/2023 Telephone [facility] [address] [address] Socorro Barajas LPN Breast Problem (Wound on (L) breast) 07/16/2023 12:00 PM CDT Home Care Visit [facility] [address] [place] [phone] Socorro Barajas LPN CULLET WASHER - HOME VISIT 07/13/2023 1:00 PM CDT Home Care Visit [facility] [address] [place] [phone] Orlando Escobar, RN SN - WOUND HOME VISIT 07/12/2023 Transcribe Orders [address] [phone] Sole Noel MD 07/09/2023 12:50 PM CDT Office Visit [facility] [address] [place] [address] Laurence Mujica PA Derm Problem (Check breast-has a 'hole with yellow drainage'-also needs cream for stomach) 07/09/2023 9:00 AM CDT Home Care Visit [address] [place] [address] Radha Bob RN SN - HOME VISIT 07/09/2023 Orders Only [facility] [address] [place] [address] Laurence Mujica PA <No scans attached> 07/08/2023 Travel 07/07/2023 10:30 AM CDT Home Care Visit [address] [address] Radha Bob RN SN - LONG VISIT (>90 MINUTES) 07/06/2023 1:00 PM CDT Home Care Visit [address] [place] [address] Ivette Martinez RN SN - WOUND HOME VISIT 07/06/2023 Home Care Visit [address] [place] [address] Maria Victoria Mcintosh, PT PT - DISCIPLINE DISCHARGE 07/06/2023 Orders Only [facility] [address] [place] [address] Laurence Mujica PA <No scans attached> 07/06/2023 Home Care Visit [address] [place] [address] Maria Victoria Mcintosh, PT CARE COORDINATION 07/05/2023 Home Care Visit [address] [place] [address] Maria Victoria Mcintosh, PT PT - MISSED VISIT 07/04/2023 8:00 AM CDT Home Care Visit [address] [place] [address] Orlando Escobar, RN SN - OASIS RECERTIFICATION 07/04/2023 Plan of Care Documentation [facility] [address] [place] [address], [place] [address] 07/03/2023 12:00 PM CDT Home Care Visit [facility] [address] [place] [phone] Luisa Burnett, PT PT - HOME VISIT 07/02/2023 8:30 AM CDT Home Care Visit [facility] [address] [place] [address], [place] [address] Radha Bob, CALLUM SN - WOUND HOME VISIT 07/01/2023 8:30 AM CDT Home Care Visit [facility] [address] [place] [phone] Radha Bob, RN SN - WOUND HOME VISIT 06/30/2023 12:00 PM CDT Home Care Visit [facility] [address] [place] [address], [place] [address] Radha Bob RN SN - WOUND HOME VISIT 06/29/2023 9:00 AM CDT Home Care Visit [facility] [address] [place] [phone] Orlando Escobar, RN SN - WOUND HOME VISIT 06/28/2023 10:15 AM CDT Home Care Visit [facility] [address] [place] [phone] Luisa Burnett, PT PT - WOUND HOME VISIT 06/28/[address] [address] Luisa Burnett, PT Home Care 06/27/2023 12:30 PM CDT Home Care Visit [facility] [address] [place] [phone] Orlando Escobar, RN SN - WOUND HOME VISIT 06/26/2023 10:15 AM CDT Home Care Visit [facility] [address] [place] [address] Luisa Burnett, PT PT - WOUND HOME VISIT 06/25/2023 10:30 AM CDT Home Care Visit [facility] [address] [place] [address] Orlando Escobar, RN SN - WOUND HOME VISIT 06/24/2023 11:00 AM CDT Home Care Visit [facility] [address] [place] [address] Radha Bob RN SN - HOME VISIT 06/23/2023 10:30 AM CDT Home Care Visit [facility] [address] [place] [address] Radha Bob, RN SN - HOME VISIT 06/22/2023 10:30 AM CDT Home Care Visit [facility] [address] [place] [address] Orlando Escobar, RN SN - WOUND HOME VISIT 06/21/2023 11:30 AM CDT Office Visit [facility] [address] [facility] [address] [place] [address] Tata Cruz PA Surgical Followup (Check open wound on her left breast S/P Bilateral Breast Reduction with free nipple graft on 05/09/23 with Yazmin) 06/21/2023 10:30 AM CDT Home Care Visit [facility] [address] [place] [phone] Luisa Burnett, PT PT - MISSED VISIT 06/21/2023 Travel 06/21/2023 Telephone [facility] [address] [facility] [address] [place] [address] Alrfedo Arce MD Post-op Pain/problem (Wound on left breast) 06/20/2023 12:00 PM CDT Home Care Visit [facility] [address] [place] [phone] Orlando Escobar, RN SN - WOUND HOME VISIT 06/20/2023 4:00 AM CDT Home Care Visit [address] [address] Laurence Clemons RN SN - WOUND/OSTOMY CHART CONSULT 06/20/2023 Travel 06/20/[address] [address] Laurence Clemons RN Home Care (Wound care plan - requesting wound vac) 06/19/2023 1:30 PM CDT Home Care Visit [address] [phone] Luisa Burnett, PT PT - MISSED VISIT 06/19/2023 10:48 AM CDT - 06/19/2023 2:12 PM CDT Emergency [facility] [address] [place] [address] Alison Elmore NP Breast abscess (Primary Dx); Cellulitis, unspecified cellulitis site; Wound dehiscence Discharge Disposition: Home Self Care 06/19/2023 Telephone [facility] [address] [phone] Alfredo Arce MD Appointment Reminder; Appointment Request 06/19/2023 Travel 06/19/2023 Nurse Triage [address] [address] Laurence Mujica PA Home Care (Pain ) 06/19/2023 Nurse Triage [facility] [address] [place] [address] Laurence Mujica PA Pain In Breast 06/18/2023 5:00 PM CDT Home Care Visit [address] [phone] Radha Bob, RN SN - WOUND HOME VISIT 06/18/2023 Home Care Visit [address] [place] [address] Radha Bob, RN CARE COORDINATION 06/17/2023 8:00 AM CDT Home Care Visit [facility] [address] [place] [address] Radha Bob, RN SN - WOUND HOME VISIT 06/16/2023 3:30 PM CDT Home Care Visit [facility] [address] [place] [address] Radha Bob, RN SN - WOUND HOME VISIT 06/15/2023 1:15 PM CDT Home Care Visit [facility] [address] [place] [address] Socorro Barajas LPN CULLET WASHER - HOME VISIT 06/14/2023 12:30 PM CDT Home Care Visit [facility] [address] [place] [address] Orlando Esocbar, RN SN - HOME VISIT 06/14/2023 10:30 AM CDT Home Care Visit [facility] [address] [place] [address], [place] [address] Luisa Burnett, PT PT - HOME VISIT 06/13/2023 12:30 PM CDT Home Care Visit [facility] [address] [place] [address], [place] [address] Socorro Barajas LPN CULLET WASHER - MISSED VISIT 06/13/2023 Home Care Visit [facility] [address] [place] [address], [place] [address] Orlando Escobar, RN CARE COORDINATION 06/12/2023 9:00 AM CDT Home Care Visit [facility] [address] [place] [address], [place] [address] Luisa Burnett, PT PT - HOME VISIT 06/12/2023 Home Care Visit [facility] [address] [place] [address], [place] [address] Orlando Escobar, RN SN - MISSED VISIT 06/12/2023 Telephone [facility] [address] [place] [address] Laurence Mujica PA Form (Jury Duty) 06/11/2023 4:00 PM CDT Home Care Visit [facility] [address] [place] [address] Radha Bob RN SN - WOUND HOME VISIT 06/11/2023 Telephone [facility] [address] [place] [address] Laurence Mujica PA Letter 06/10/2023 9:00 AM CDT Home Care Visit [facility] [address] [place] [phone] Orlando Escobar, RN SN - WOUND HOME VISIT 06/09/2023 9:00 AM CDT Home Care Visit [place] [phone] [place] [phone] Orlando Escobar, RN SN - WOUND HOME VISIT 06/08/2023 1:30 PM CDT Home Care Visit [place] [phone] [place] [phone] Laurence Clemons RN SN - WOUND/OSTOMY CHART CONSULT 06/08/2023 12:00 PM CDT Home Care Visit [place] [phone] [place] [phone] Orlando Escobar, RN SN - INITIAL ASSESSMENT 06/07/2023 4:00 PM CDT Home Care Visit [facility] [address] [place] [phone] Luisa Burnett, PT PT - OASIS RESUMPTION OF CARE 06/07/[address] [address] Luisa Burnett, PT Home Care 06/07/[address] [address] Luisa Burnett, PT Home Care 06/06/2023 Patient Outreach [facility] [address] [place] [address] Felicita Dickinson, RN Primary RN Care Management; Hospital F/U (LACE 80) 06/05/2023 Travel 06/04/2023 Travel 06/04/2023 Telephone [facility] [address] [phone] Alfredo Arce MD Surgical Followup (Wound under left breast/S/p: Bilateral Breast Reduction/DOS: 05/09/2023/Surgeon: Alfredo Arce//) 06/03/2023 Home Care Visit [facility] [address] [place] [phone] Luisa Burnett, PT PT - OASIS TRANSFER 06/01/2023 8:28 PM CDT - 06/05/2023 12:30 PM CDT Hospital Encounter [facility] [address] [place] [address] Lane Barahona, JAMAICA Boyer, Rory Gibbs, DO Dang, Sarah Guidry, Kathy Bautista, JUDE Espana, Bi Sherman DO Sepsis, due to unspecified organism, unspecified [...] PM CDT Home Care Visit [facility] [address] [place] [phone] Luisa Burnett, PT PT - HOME VISIT 05/30/2023 Refill [facility] [address] [place] [address] Laurence Mujica PA Refill Request (Ondansetron) 05/28/2023 12:30 PM CDT Home Care Visit [facility] [address] [place] [address] Josi Tolentino RN SN - HOME VISIT 05/28/2023 8:56 AM CDT - 05/28/2023 11:05 AM CDT Emergency [facility] [address] [place] [address] Darryl Hardy MD Postoperative hematoma of skin following non-dermatologic procedure (Primary Dx) Discharge Disposition: Home Self Care 05/28/2023 Travel 05/25/2023 Nurse Triage [facility] [address] [facility] [address] [place] [phone] Alfredo Arce MD Post-op 05/23/2023 12:00 PM CDT Home Care Visit [facility] [address] [place] [phone] Luisa Burnett, PT PT - HOME VISIT 05/22/2023 1:00 PM CDT Home Care Visit [facility] [address] [place] [phone] Josi Tolentino RN SN - HOME VISIT 05/21/2023 1:00 PM CDT Office Visit [facility] 1601 [facility] [address] [place] [address] Alfredo Arce MD Surgical Followup (Bilateral Breast Reduction with free nipple graft, DOS: 05/09/23, w/ Dr. Arce) 05/21/2023 3:00 AM CDT Home Care Visit [facility] [address] [place] [phone] Luisa Burnett, PT PT - MISSED VISIT 05/21/2023 Travel 05/17/2023 11:00 AM CDT Home Care Visit [facility] [address] [place] [address] Socorro Barajas LPN CULLET WASHER - HOME VISIT 05/17/2023 3:00 AM CDT Home Care Visit [facility] [address] [place] [address] Luisa Burnett, PT PT - MISSED VISIT 05/17/2023 Travel 05/17/2023 Telephone [facility] [address] [address] Alfredo Arce MD Hospital F/U (Sutures/itchiness. ) 05/16/2023 1:15 PM CDT Home Care Visit [facility] [address] [place] [address] Luisa Burnett, PT PT - MISSED VISIT 05/14/2023 10:30 AM CDT Home Care Visit [facility] [address] [place] [address] Josi Tolentino, RN SN - INITIAL ASSESSMENT 05/14/2023 Home Care Visit [facility] [address] [place] [address] Josi Tolentino, RN CARE COORDINATION 05/14/[address] [address] Laurence Mujica PA Home Care (home care orders needed) 05/10/2023 1:00 PM CDT Nurse/Clinic Staff Only [facility] [address] [address] Surgical Followup (Post-operative call/DOS: 05/09/2023/Surgeon: Alfredo Arce) 05/10/2023 Travel 05/09/2023 9:50 AM CDT - 05/09/2023 11:40 AM CDT Surgery [address] [place] [address] Alfredo Arce MD Bilateral Breast Reduction with free nipple graft 05/09/2023 9:50 AM CDT Anesthesia Event [address] [place] [address] [facility], Henok Hameed MD 05/09/2023 8:21 AM CDT - 05/09/2023 1:12 PM CDT Hospital Encounter [facility] [address] [facility] [place] [address] Aflredo Arce MD S/P bilateral breast reduction (Primary Dx) Discharge Disposition: Home Self Care 05/09/2023 Travel 05/08/2023 Home Care Visit [facility] [address] [place] [address] Rodyd Pollack, PT CARE COORDINATION 05/08/2023 Home Care Visit [facility] [address] [place] [address] Roddy Pollack, PT CARE COORDINATION 05/08/2023 Orders Only [facility] [address] [place] [address] Laurence Mujica PA <No scans attached> 05/07/2023 11:15 AM CDT Home Care Visit [facility] [address] [place] [phone] Roddy Pollack, PT PT - OASIS START OF CARE 05/07/2023 Telephone [facility] [address] [place] [address] Roddy Pollack, PT Home Care (/) 05/07/2023 Orders Only [facility] [address] [place] [address] Laurence Mujica PA <No scans attached> 05/07/2023 Plan of Care Documentation [facility] [address] [place] [address] 05/04/2023 Telephone [facility] [address] [place] [address] Roddy Pollack, PT Home Care 05/03/2023 Travel 05/01/2023 Travel 04/30/2023 Home Care Visit [facility] [address] [facility] [place] [address] Maria Victoria Mcintosh, PT CARE COORDINATION 04/30/2023 Home Care Visit [facility] [address] [place] [address] Luisa Burnett, PT CARE COORDINATION 04/27/2023 10:30 AM CDT Preop Visit [facility] [address] [place] [address] Laurence Mujica PA Preoperative Exam ([facility]-Dr. Arce-breast reduction-05/09/23) 04/27/2023 Travel 04/27/2023 Transcribe Orders [facility] [address] [place] [address] Juan Jose Martin, [facility] 04/25/2023 Travel from Last 3 Months Immunizations Name [...] Used Date Smoking Tobacco: Former Cigarettes 2 40.5 S tarted: 1983 Smokeless Tobacco: Former Quit: [...] Sign Reading Time Taken Comments Blood Pressure 126/70 07/23/2023 1:40 PM CDT Pulse 88 07/23/2023 1:40 PM CDT Temperature 36.2 ??C (97.2 ??F) 07/23/2023 1:40 PM CD T Respiratory Rate 18 07/23/2023 1:40 PM CDT Oxygen Saturation 99% 07/23/2023 1:40 PM CDT RA Inhaled Oxygen Concentration - - Weight 84.4 kg (186 lb) 06/21/2023 11:41 AM CDT Height 174 cm (5' 8.5) 06/19/2023 10:56 AM CDT Body Mass Index 27.87 06/19/2023 10:56 AM CDT Plan of Treatment Upcoming Encounters Date Type Department Care Team (Late st Contact Info) Description 07/26/2023 12:30 PM CDT Procedure Only [facility] [address] [facility] [address] [place] [address] Michoacano Nathan MD 280 [facility] 220 [place] [address] 07/28/2023 4:00 AM CDT Home Care Visit [address] [address] Radha Bob, RN [address], [place] [address] 07/30/2023 1:30 AM CDT Home Care Visit [address] [address] Laurence Clemons, RN [address] [place] [address] 07/30/2023 4:00 AM CDT Home Care Visit [address] [address] Radha Bob, RN [address] [place] [address] 08/02/2023 10:30 AM CDT Appointment [facility] [address] [place] [address] 08/02/2023 11:00 AM CDT Appointment [address] [address] 08/04/2023 4:00 AM CDT Home Care Visit [address] [address] Radha Bob, RN [address], [place] [address] 08/06/2023 4:00 AM CDT Home Care Visit [facility] [address] [place] [address] 08/10/2023 4:00 AM CDT Home Care Visit [facility] [address] [place] [address] 08/13/2023 4:00 AM CDT Home Care Visit [facility] [address] [place] [address], [place] [address] Josi Sosa, RN 08/17/2023 4:00 AM CDT Home Care Visit [facility] [address] [place] [address], [place] [address] Josi Sosa, RN 08/20/2023 4:00 AM CDT Home Care Visit [facility] [address] [place] [phone] 08/24/2023 4:00 AM CDT Home Care Visit [facility] [address] [place] [address], [place] [address] 08/27/2023 4:00 AM CDT Home Care Visit [facility] [address] [place] [address], [place] [address] 08/31/2023 4:00 AM CDT Home Care Visit [facility] [address] [place] [phone] Health Maintenance Due Date Last Done Comments [...] Routine 04/27/2023 11:19 AM CDT Pre-op exam LIPID PANEL W REFLEX MEASURED LDL Routine [...] result of the Century Cures Act, medical imagingexams and procedure [...] 06/19/2023 12:45:40 PM (Electronically Signed) Alison Elmore MAINTENANCE ADVISOR CT * BLOOD CULTURE X2 (06/19/2023 11:49 AM CDT) Only the most recent of4 resultswithin the time period is included. [facility] CULTURE No Growth. 06/24/2023 1:51 PM CDT [facility] Blood BLOOD SPECIMEN / Unknown Butterfly / Unknown 06/19/2023 11:49 AM CDT 06/19/2023 12:15 PM CDT Alison Elmore MAINTENANCE ADVISOR MICROBIOLOG Y [facility] [address] [place] [address] * (ABNORMAL) CBC WITH AUTO DIFFERENTIAL (06/19/2023 11:39 AM CDT) Only the most recent of3 resultswithin the time period is included. [facility] Signature WHITE BLOOD COUNT 5.1 4.5 - 11.0 thou/cu mm 06/19/2023 11:58 AM T [facility] RED BLOOD COUNT 4.05 4.00 - 5.20 mil/cu mm 06/19/2023 11:58 AM [facility] HEMOGLOBIN 10.0(L) 12.0 - 16.0 g/dL 06/19/2023 11:58 AM [facility] HEMATOCRIT 33.1 33.0 - 51.0 % 06/19/2023 11:58 AM [facility] MCV 82 80 - 100 fL 06/19/2023 11:58 AM [facility] MCH 24.7(L) 26.0 - 34.0 pg 06/19/2023 11:58 AM [facility] MCHC 30.2(L) 32.0 - 36.0 g/dL 06/19/2023 11:58 AM [facility] RDW 16.8(H) 11.5 - 15.5 % 06/19/2023 11:58 AM [facility] PLATELET COUNT 314 140 - 440 thou/cu mm 06/19/2023 11:58 AM [facility] MPV 9.9 6.5 - 11.0 fL 06/19/2023 11:58 AM [facility] % NEUT 68.3 % 06/19/2023 11:58 AM [facility] % LYMPH 13.8 % 06/19/2023 11:58 AM [facility] % MONO 9.9 % 06/19/2023 11:58 AM [facility] % EOS 7.2 % 06/19/2023 11:58 AM [facility] % BASO 0.8 % 06/19/2023 11:58 AM [facility] ABSOLUTE NEUTROPHILS 3.5 1.7 - 7.0 thou/cu mm 06/19/2023 11:58 AM [facility] ABSOLUTE LYMPHOCYTES 0.7(L) 0.9 - 2.9 thou/cu mm 06/19/2023 11:58 AM [facility] ABSOLUTE MONOCYTES 0.5 <0.9 thou/cu mm 06/19/2023 11:58 AM [facility] ABSOLUTE EOSINOPHILS 0.4 <0.5 thou/cu mm 06/19/2023 11:58 AM [facility] ABSOLUTE BASOPHILS 0.0 <0.3 thou/cu mm 06/19/2023 11:58 AM [facility] Blood BLOOD SPECIMEN / Unknown Butterfly / Unknown 06/19/2023 11:39 AM CDT 06/19/2023 11:52 AM T Alison Elmore NP HEMATOLOGY Performing Organization Address [facility]/ZIP Co de Phone Number [facility] [address] [place] [address] * LACTATE VENOUS (06/19/2023 11:39 AM CDT) Only the most recent of4 resultswithin the time period is included. LACTATE,VENOUS 0.7 0.5 - 2.0 mmol/L 06/19/2023 12:08 PM CDT [facility] Blood BLOOD SPECIMEN / Unknown Butterfly / Unknown 06/19/2023 11:39 AM CDT 06/19/2023 11:47 AM CDT Alison Elmore NP CHEMISTRY Performing Organization Address [facility] Co de Phone Number [facility] [address] [place] [address] * PROCALCITONIN (06/19/2023 11:39 AM CDT) PROCALCITONIN 0.04 ng/ml 06/19/2023 12:21 PM CDT [facility] Blood BLOOD SPECIMEN / Unknown Butterfly / Unknown 06/19/2023 11:39 AM CDT 06/19/2023 11:47 AM CDT Narrative [facility] - 06/19/2023 12:21 PM CDT [...] < 2 ng/mL are obtained. Alison Elmore MAINTENANCE ADVISOR SEND OUTS Performing Organization Address City/State/[facility] Co de Phone Number [facility] [address] [place] [address] * (ABNORMAL) PROTIME-INR (06/19/2023 11:39 AM CDT) Only the most recent of3 resultswithin the time period is included. INR 1.1 <1.3 06/19/2023 11:56 AM CDT [facility] PROTIME 12.5(H) 10.3 - 12.3 sec 06/19/2023 11:56 AM CDT [facility] Blood BLOOD SPECIMEN / Unknown Butterfly / Unknown 06/19/2023 11:39 AM CDT 06/19/2023 11:47 AM CDT Narrative [facility] - 06/19/2023 11:56 AM CDT [...] is on UFH. Alison Elmore NP HEMATOLOGY [facility] [address] [place] [address] * (ABNORMAL) COMP METABOLIC PANEL (06/19/2023 11:39 AM CDT) Only the most recent of2 resultswithin the time period is included. SODIUM 138 136 - 145 mmol/L 06/19/2023 12:10 PM [facility] POTASSIUM 3.7 3.5 - 5.1 mmol/L 06/19/2023 12:10 PM [facility] CHLORIDE 101 98 - 107 mmol/L 06/19/2023 12:10 PM [facility] CO2,TOTAL 27 22 - 29 mmol/L 06/19/2023 12:10 PM [facility] ANION GAP 10 5 - 18 06/19/2023 12:10 PM [facility] GLUCOSE 84 70 - 99 mg/dL 06/19/2023 12:10 PM [facility] CALCIUM 8.7 8.6 - 10.0 mg/dL 06/19/2023 12:10 PM [facility] BUN 9 6 - 20 mg/dL 06/19/2023 12:10 PM [facility] CREATININE 0.59 0.50 - 0.90 mg/dL 06/19/2023 12:10 PM [facility] BUN/CREAT RATIO 15 10 - 20 12:10 PM [facility] eGFR >90 >90 mL/min/1.7 3m2 06/19/2023 12:10 PM [facility] Comment:As of 2021, eG FR is calculated by the CKD-EPI creatinine equation without race adjustment. ??eGFR can be influenced by muscle mass, exercise, and diet. ??The reported eGFR is an estimation only and is only applicable if the renal function is stable. ALBUMIN 4.3 4.0 - 4.9 g/dL 06/19/2023 12:10 PM [facility] PROTEIN,TOTAL 7.3 6.0 - 8.0 g/dL 06/19/2023 12:10 PM [facility] BILIRUBIN,TOTAL 1.0 0.0 - 1.2 mg/dL 06/19/2023 12:10 PM [facility] ALK PHOSPHATASE 235(H) 35 - 104 IU/L 06/19/2023 12:10 PM [facility] ALT (SGPT) 51(H) 10 - 35 IU/L 06/19/2023 12:10 PM [facility] AST (SGOT) 123(H) 10 - 35 IU/L 06/19/2023 12:10 PM [facility] Blood BLOOD SPECIMEN / Unknown Butterfly / Unknown 06/19/2023 11:39 AM CDT 06/19/2023 11:47 AM CDT Alison Elmore NP CHEMISTRY [facility] [address] [place] [address] * (ABNORMAL) HEMOGLOBIN (06/05/2023 9:27 AM CDT) Only the most recent of5 resultswithin the time period is included. HEMOGLOBIN 9.3(L) 12.0 - 16.0 g/dL 06/05/2023 9:47 AM T [facility] MCV 82 80 - 100 fL 06/05/2023 9:47 AM [facility] Blood BLOOD SPECIMEN / Unknown Butterfly / Unknown 06/05/2023 9:27 AM CDT 06/05/2023 9:36 AM CDT Kathy Rizzo NP HEMATOLOGY Performing Organization Address City/[facility] Co de Phone Number [facility] [address] [place] [address] * POTASSIUM (06/05/2023 9:27 AM CDT) Only the most recent of3 resultswithin the time period is included. POTASSIUM 4.0 3.5 - 5.1 mmol/L 06/05/2023 10:00 AM CDT [facility] Blood BLOOD SPECIMEN / Unknown Butterfly / Unknown 06/05/2023 9:27 AM CDT 06/05/2023 9:36 AM CDT Kathy Rizzo NP CHEMISTRY Performing Organization Address [facility] de Phone Number [facility] [address] [place] [address] * (ABNORMAL) CREATININE (06/05/2023 9:27 AM CDT) Only the most recent of3 resultswithin the time period is included. Pathologist [facility] eGFR >90 >90 mL/min/1.7 3m2 06/05/2023 10:00 AM CDT [facility] Comment:As of 2021, eG FR is calculated by the CKD-EPI creatinine equation without race adjustment. ??eGFR can be influenced by muscle mass, exercise, and diet. ??The reported eGFR is an estimation only and is only applicable if the renal function is stable. CREATININE 0.48(L) 0.50 - 0.90 mg/dL 06/05/2023 10:00 AM CDT [facility] Blood BLOOD SPECIMEN / Unknown Butterfly / Unknown 06/05/2023 9:27 AM CDT 06/05/2023 9:36 AM CDT Kathy Rizzo NP CHEMISTRY Performing Organization Address [facility] de Phone Number [facility] [address] [place] [address] * MAGNESIUM (06/05/2023 9:27 AM CDT) Only the most recent of2 resultswithin the time period is included. MAGNESIUM 1.7 1.6 - 2.6 mg/dL 06/05/2023 10:00 AM CDT [facility] Blood BLOOD SPECIMEN / Unknown Butterfly / Unknown 06/05/2023 9:27 AM CDT 06/05/2023 9:36 AM CDT Kathy Rizzo NP CHEMISTRY Performing Organization Address [facility] de Phone Number [facility] [address] [place] [address] * GLUCOSE METER (06/05/2023 9:13 AM CDT) Only the most recent of23 resultswithin the time period is included. [facility] GLUCOSE METER 99 65 - 100 mg/dL 06/05/2023 11:29 AM CDT [facility] Blood BLOOD SPECIMEN / Unknown 06/05/2023 9:13 AM CDT 06/05/2023 11:29 AM CDT Kathy Rizzo NP CHEMISTRY Performing Organization Address [facility] de Phone Number [facility] [address] [place] [address] * EKG 12 LEAD (06/04/2023 11:46 AM CDT) [facility] Interpretation Normal sinus rhythm Low voltage [...] NOW QTc 442 ms BEYOND NOW P Zeigler 53 degrees BEYOND NOW R Zeigler -6 degrees BEYOND NOW T Zeigler 16 degrees BEYOND NOW 06/04/2023 11:4 6 AM CDT 06/04/2023 8:21 PM CDT Kathy Rizzo NP EKG ORD Performing Organization Address City/[facility] de Phone Number BEYOND NOW [place], [place] * WHITE BLOOD COUNT (06/04/2023 5:50 AM CDT) Only the most recent of2 resultswithin the time period is included. WHITE BLOOD COUNT 5.1 4.5 - 11.0 thou/cu mm 06/04/2023 6:32 AM CDT [facility] Blood BLOOD SPECIMEN / Unknown Butterfly / Unknown 06/04/2023 5:50 AM CDT 06/04/2023 6:25 AM CDT Kathy Rizzo NP HEMATOLOGY Performing Organization Address [facility] de Phone Number [facility] [address] [place] [address] * SODIUM (06/04/2023 5:50 AM CDT) Only the most recent of2 resultswithin the time period is included. SODIUM 138 136 - 145 mmol/L 06/04/2023 6:51 AM CDT [facility] Blood BLOOD SPECIMEN / Unknown Butterfly / Unknown 06/04/2023 5:50 AM CDT 06/04/2023 6:25 AM CDT Kathy Rizzo NP CHEMISTRY Performing Organization Address [facility] de Phone Number [facility] [address] [place] [address] * (ABNORMAL) C-REACTIVE PROTEIN (06/03/2023 6:49 AM CDT) C-REACTIVE PROTEIN 3.5(H) <0.5 mg/dL 06/03/2023 7:36 AM CDT [facility] Blood BLOOD SPECIMEN / Unknown Butterfly / Unknown 06/03/2023 6:49 AM CDT 06/03/2023 6:53 AM CDT Rory Boyer DO CHEMISTRY Performing Organization Address [facility] Co de Phone Number [facility] [address] [place] [address] * SCAN-CARDIAC STRIP (06/02/2023 10:13 AM CDT) Scanner OTHER * (ABNORMAL) CREATININE,ISTAT (06/02/2023 6:34 AM CDT) [facility] CREATININE, POCT 0.40(L) 0.57 - 1.11 mg/dL 06/02/2023 6:36 AM CDT [facility] Comment:Caution: Patients ta jaleel Hydroxyurea have falsely increased iStat Creatinine results. Verify creatinine results ordering a Creatinine (54917.2) eGFR >90 >90 mL/min/1.7 3m2 06/02/2023 6:36 AM CDT [facility] Comment:As of 2021, eG FR [...] Rory Boyer DO CHEMISTRY Performing Organization Address [facility]/ZIP Co de Phone Number [facility] [address] [place] [address] * SCAN-CARDIAC STRIP (06/02/2023 3:50 AM CDT) Scanner OTHER * (ABNORMAL) URINALYSIS MICROSCOPIC (06/01/2023 10:08 PM CDT) RBC 26-50(A) 0-2, None Seen /HPF 06/02/2023 12:02 AM T [facility] WBC >100(A) 0-2, 3-5, None Seen /HPF 06/02/2023 12:02 AM T [facility] BACTERIA Many(A) None Seen, Rare, Few Bacteria/ HPF 06/02/2023 12:02 AM [facility] EPITHELIAL CELLS Few None Seen, Few Epi/HPF 06/02/2023 12:02 AM T [facility] Mucus Present 06/02/2023 12:02 AM [facility] WHITE CELL CLUMPS Present(A) (none) 06/02/2023 12:02 AM [facility] Urine URINE SPECIMEN / Unknown Non-Blood / Unknown 06/01/2023 10:08 PM CDT 06/01/2023 10:[address] BERUMEN URINE [facility] [address] [place] [address] * (ABNORMAL) URINE CULTURE (06/01/2023 10:08 PM CDT) CULTURE RESULT(A) 06/05/2023 9:31 AM CDT [facility] CULTURE >100,000 CFU/mL Escherichia coli 06/05/2023 9:31 AM CDT [facility] CULTURE 10,000-50,000 CFU/mL Enterococcus faecalis 06/05/2023 9:31 AM CDT [facility] Urine URINE SPECIMEN / Unknown [...] NITROFURANTOIN <=16: S Lane BERUMEN MICROBIOLOG Y [facility] [address] [place] [address], * (ABNORMAL) URINALYSIS W REFLEX MICROSCOPIC IF POSITIVE (06/01/2023 10:08 PM CDT) COLOR Yellow Yellow Color 06/01/2023 10:31 PM [facility] CLARITY Cloudy(A) Clear Clarity 06/01/2023 10:31 PM [facility] SPECIFIC GRAVITY,URINE 1.025 1.010, 1.015, 1.020, 1.025 06/01/2023 10:31 PM [facility] PH,URINE 6.0 6.0, 7.0, 8.0, 5.5, 6.5, 7.5, 8.5 06/01/2023 10:31 PM [facility] UROBILINOGEN, QUALITATIVE Normal Normal EU/dl 06/01/2023 10:31 PM [facility] PROTEIN, URINE 30(A) Negative mg/dL 06/01/2023 10:31 PM CDT [facility] GLUCOSE, URINE Negative Negative mg/dL 06/01/2023 10:31 PM CDT [facility] KETONES,URINE Negative Negative mg/dL 06/01/2023 10:31 PM CDT [facility] BILIRUBIN,URI NE Negative Negative 06/01/2023 10:31 PM CDT [facility] OCCULT BLOOD,URINE Large(A) Negative 06/01/2023 10:31 PM CDT [facility] NITRITE Positive(A) Negative 06/01/2023 10:31 PM CDT [facility] LEUKOCYTE ESTERASE Large(A) Negative 06/01/2023 10:31 PM CDT [facility] Urine URINE SPECIMEN / Unknown Non-Blood / Unknown 06/01/2023 10:08 PM CDT 06/01/2023 10:[address] BERUMEN URINE Performing Organization Address City/State/[facility] Co de Phone Number [facility] [address] [place] [address] * XR CHEST 1 VIEW PORTABLE (06/01/2023 [...] CDT) CULTURE RESULT(A) 06/05/2023 8:50 AM CDT [facility] CULTURE 3+ Pseudomonas stutzeri 06/05/2023 8:50 AM CDT [facility] GRAM STAIN No Epithelial cells 06/05/2023 8:50 AM CDT [facility] GRAM STAIN 4+ RBCs 06/05/2023 8:50 AM CDT [facility] GRAM STAIN 2+ PMNs 06/05/2023 8:50 AM CDT [facility] GRAM STAIN 2+ Gram Negative Bacilli 06/05/2023 8:50 AM CDT [facility] Other (Other) Non-Blood / Unknown [...] [place] <=0.25: S Lane BERUMEN MICROBIOLOG Y [facility] [address] [place] [address], [place] * MUSCULOSKELETAL ULTRASOUND (05/28/2023 10:00 AM [...] cellulitis Darryl Hardy MD 05/28/2023 10:00 AM [facility] Emergency Department [phone] Darryl Hardy MD PROCEDURE ORD * (ABNORMAL) RED CELL MORPHOLOGY (05/28/2023 9:28 AM CDT) ELLIPTOCYTES Moderate 05/28/2023 10:04 AM CDT [facility] TEARDROP CELLS Few 05/28/2023 10:04 AM CDT [facility] RBC COMMENT Present(A) RBC morphology appears normal, RBC morphology within normal limits for newborns. 05/28/2023 10:04 AM T [facility] Blood BLOOD SPECIMEN / Unknown Butterfly / Unknown 05/28/2023 9:28 AM CDT 05/28/2023 9:35 AM CDT Josi Quevedo RN HEMATOLOGY Performing Organization Address City/[facility]/ZIP Co de Phone Number [facility] [address] [place] [address] * PLATELET ESTIMATE (05/28/2023 9:28 AM CDT) PLATELET ESTIMATE Adequate Adequate, No estimate 05/28/2023 10:04 AM T [facility] Blood BLOOD SPECIMEN / Unknown Butterfly / Unknown 05/28/2023 9:28 AM CDT 05/28/2023 9:35 AM CDT Josi Quevedo RN HEMATOLOGY Performing Organization Address [facility] Co de Phone Number [facility] [address] [place] [address] * (ABNORMAL) MANUAL DIFFERENTIAL (05/28/2023 9:28 AM CDT) Pathologist [facility] % NEUTROPHILS 81.0 % 05/28/2023 10:04 AM [facility] % LYMPHOCYTES 12.0 % 05/28/2023 10:04 AM [facility] % MONOCYTES 4.0 % 05/28/2023 10:04 AM [facility] % EOSINOPHILS 3.0 % 05/28/2023 10:04 AM [facility] % BASOPHILS 0.0 % 05/28/2023 10:04 AM [facility] NEUTROPHILS ABSOLUTE 5.5 1.7 - 7.0 thou/cu mm 05/28/2023 10:04 AM [facility] LYMPHOCYTES ABSOLUTE 0.8(L) 0.9 - 2.9 thou/cu mm 05/28/2023 10:04 AM [facility] MONOCYTES ABSOLUTE 0.3 <0.9 thou/cu mm 05/28/2023 10:04 AM CDT [facility] EOSINOPHILS ABSOLUTE 0.2 <0.5 thou/cu mm 05/28/2023 10:04 AM CDT [facility] BASOPHILS ABSOLUTE 0.0 <0.3 thou/cu mm 05/28/2023 10:04 AM CDT [facility] Blood BLOOD SPECIMEN / Unknown Butterfly / Unknown 05/28/2023 9:28 AM CDT 05/28/2023 9:35 AM CDT Josi Quevedo RN HEMATOLOGY Performing Organization Address City/[facility]/ZIP Co de Phone Number [facility] [address] [place] [address] * TYPE AND SCREEN ONLY (05/28/2023 9:28 AM CDT) ABORH O Rh Positive 05/28/2023 10:20 AM T [facility] BLOOD BANK ANTIBODY SCREEN Negative Negative 05/28/2023 10:20 AM [facility] BLOOD BANK SPECIMEN EXPIRATION DATE/TIME 05/31/23 23:59 05/28/2023 10:20 AM T [facility] BLOOD BANK Blood BLOOD SPECIMEN / Unknown Butterfly / Unknown 05/28/2023 9:28 AM CDT 05/28/2023 9:35 AM CDT Brian Ed Triage BLOOD BANK Performing Organization Address [facility]/ZIP Co de Phone Number [facility] BLOOD BANK [address] [place] [address] * (ABNORMAL) HEPATIC FUNCTION PANEL (05/28/2023 9:28 AM CDT) ALBUMIN 4.6 4.0 - 4.9 g/dL 05/28/2023 9:55 AM CDT [facility] PROTEIN,TOTAL 7.9 6.0 - 8.0 g/dL 05/28/2023 9:55 AM CDT [facility] BILIRUBIN,TOTAL 0.5 0.0 - 1.2 mg/dL 05/28/2023 9:55 AM [facility] BILIRUBIN,DIRECT <0.2 0.0 - 0.3 mg/dL 05/28/2023 9:55 AM [facility] BILIRUBIN,INDIRE CT 05/28/2023 9:55 AM [facility] Comment:Unable to calculate, Direct Bili <0.2 ALK PHOSPHATASE 144(H) 35 - 104 IU/L 05/28/2023 9:55 AM [facility] ALT (SGPT) 6(L) 10 - 35 IU/L 05/28/2023 9:55 AM [facility] AST (SGOT) 19 10 - 35 IU/L 05/28/2023 9:55 AM [facility] Blood BLOOD SPECIMEN / Unknown Butterfly / Unknown 05/28/2023 9:28 AM CDT 05/28/2023 9:35 AM T Darryl Hardy MD CHEMISTRY Performing Organization Address City/[facility] Co de Phone Number [facility] [address] [place] [address] * (ABNORMAL) Basic Metabolic Panel (05/28/2023 9:28 AM T) Only the most recent of2 resultswithin the time period is included. SODIUM 142 136 - 145 mmol/L 05/28/2023 9:55 AM [facility] POTASSIUM 4.0 3.5 - 5.1 mmol/L 05/28/2023 9:55 AM [facility] CHLORIDE 104 98 - 107 mmol/L 05/28/2023 9:55 AM [facility] CO2,TOTAL 28 22 - 29 mmol/L 05/28/2023 9:55 AM [facility] ANION GAP 10 5 - 18 05/28/2023 9:55 AM [facility] GLUCOSE 94 70 - 99 mg/dL 05/28/2023 9:55 AM [facility] CALCIUM 10.1(H) 8.6 - 10.0 mg/dL 05/28/2023 9:55 AM CDT [facility] BUN 6 6 - 20 mg/dL 05/28/2023 9:55 AM CDT [facility] CREATININE 0.53 0.50 - 0.90 mg/dL 05/28/2023 9:55 AM CDT [facility] BUN/CREAT RATIO 11 10 - 20 9:55 AM CDT [facility] eGFR >90 >90 mL/min/1.7 3m2 05/28/2023 9:55 AM CDT [facility] Comment:As of 2021, eG FR [...] 9:35 AM CDT Josi Quevedo RN CHEMISTRY [facility] [address] [place] [address] * PATH TISSUE EXAM (05/09/2023 10:20 AM CDT) Case Report Pathology Report ?Case: [id number] ? Authorizing Provider: ??Alfredo Arce MD ?Collected: ? 05/09/2023 1020 ? Ordering Location: ? [facility] ?Received: ?05/09/2023 1348 ? [facility] ? Pathologist: ? Roddy Wright MD ? Specimens: ?? A) - Left Breast ? B) - Right Breast ? 05/11/2023 11:51 AM CDT [facility] Final Diagnosis A) LEFT BREAST, REDUCTION MAMMOPLASTY: 1. Benign breast tissue with proliferative fibrocystic change 2. Negative for atypia and malignancy B) RIGHT BREAST, REDUCTION MAMMOPLASTY: 1. Benign breast tissue with proliferative fibrocystic change 2. Negative for atypia and malignancy 05/11/2023 11:51 AM CDT [facility] Clinical Information Bilateral disabling macromastia 05/11/2023 11:51 AM CDT [facility] Gross Description A) Received in formalin, labeled with the patient's name and left breast, is a 1057 g, 22.0 x 19.0 x 5.0 cm aggregate of yellow-beltran fibrofatty tissue and beltran smooth unremarkable skin. The specimen is serially sectioned revealing yellow-beltran cut surfaces consisting of approximately 70% yellow adipose tissue and 30% beltran fibrous tissue. No discrete lesions are noted. Russian History Professor sections are submitted in 3 cassettes. Time [...] fibrous tissue. No discrete lesions are noted. Russian History Professor sections are submitted in 3 cassettes. Time removed from patient: 1049 Time placed in formalin: 1135 Date removed and placed in formalin: 05/09/2023 The specimen was fixed in formalin for a minimum of 6 hours and not longer than 72 hours. KMN 05/09/2023 05/11/2023 11:51 AM CDT [facility] Microscopic Description The final diagnosis is based on microscopic examination of appropriate sections of all specimens. 05/11/2023 11:51 AM CDT [facility] Additional Information Interpreted at [facility], Central Laboratory - [address] [facility] [address], [place] [address] 05/11/2023 11:51 AM CDT [facility] Tissue (Left Breast) 05/09/2023 10:20 AM CDT 05/09/2023 1:48 PM CDT Tissue specimen (specimen) (Right Breast) 05/09/2023 10:49 AM CDT 05/09/2023 1:48 PM CDT Alfredo Arce MD PATHOLOGY/CYTOLOGY [facility] [address] [place] [address], * [facility] PR5 (05/09/2023 10:08 AM CDT) Narrative [...] unspecified provider. Other Clinical Staff OTHER * (ABNORMAL) LIPID PANEL W REFLEX MEASURED LDL (11/30/2022 4:09 PM CDT) CHOLESTEROL,TOTAL 160 100 - 199 mg/dL 11/30/2022 11:51 PM CDT [facility] Comment: Cholesterol, Total Reference Ranges Desirable <200 mg/dL Borderline 200-239 mg/dL High >=240 mg/dL TRIGLYCERIDES 149 <150 mg/dL 11/30/2022 11:51 PM CDT [facility] HDL CHOLESTEROL 36(L) >40 mg/dL 11:51 PM CDT [facility] NON-HDL CHOLESTEROL 124 <145 mg/dl 11/30/2022 11:51 PM CDT [facility] CHOL/HDL RATIO 4.44 <4.50 11/30/2022 11:51 PM CDT [facility] LDL CHOLESTEROL 94 <=130 mg/dL 11/30/2022 11:51 PM CDT [facility] VLDL CHOLESTEROL 30 <=30 mg/dL 11/30/2022 11:51 PM CDT [facility] PROVIDER ORDERED STATUS RANDOM 11/30/2022 11:51 PM CDT [facility] Blood BLOOD SPECIMEN / Unknown Butterfly / Unknown 11/30/2022 4:09 PM CDT 11/30/2022 4:11 PM CDT Laurence BERUMEN CHEMISTRY [facility] [address] [place] [address], [place] * XR MAMMO KAYLEE BILAT SCREEN [...] care provider. XR MAMMO KAYLEE BILAT SCREEN [[id number]] CLINICAL HISTORY: ??This is an asymptomatic 47 [...] carly Non-React carly 09/23/2021 4:44 PM CDT [facility] Comment:Antibodies to HCV no t detected; does not exclude the possibility of exposure to HCV. Blood BLOOD SPECIMEN / Unknown Venipuncture / Unknown 09/20/2021 11:11 PM CDT 09/20/2021 11:15 PM CDT Bela Chávez MD SEND OUTS [facility] [address] [place] [address], * ANTI HIV 1/2 (09/20/2021 11:11 PM CDT) HIV-1/HIV-2 ANTIBODY Non-Reacti ve Non-Reacti ve 09/23/2021 6:18 PM CDT [facility] Comment:HIV-1 p24 and HIV-1/ HIV-2 Ab not detected. Blood BLOOD SPECIMEN / Unknown Venipuncture / Unknown 09/20/2021 11:11 PM CDT 09/20/2021 11:15 PM CDT Bela Chávez MD S[facility] [address] [place] [address], from Last 3 Months or Most Recently Relevant to Health Maintenance Advance Directives Documents on File Type Date Recorded Patient Russian History Professor Expl anation Healthcare Directive 12/15/2022 023 POLST [...] Intubation Drug Protocol: No Restrictions Care Teams Utility System Repairer Relationship Specialty Start Date End Date Laurence Mujica PA [address] [place] [address] PCP - General Physician [employer] Bullet Maker 07/16/14 Yumiko Garcia NP [address] [place] [address] Psychiatry Nurse Practitioner 04/07/16 Nga White MD [address] [place] [address] Surgery - Urology 06/15/22 [facility] [place] [address] [id number] 04/30/23 [facility] [place] [address] [place] [id number] 04/30/23
== END 2023-07-25 10:50 | disposition home or self-care (01) ==
LOC: WOUND 10:49
PROVIDERS: PCP Physician Assistant; Visit Provider Surgery
DX: T81.31XA Disruption of external operation (surgical) wound, not elsewhere classified, initial encounter (principal); E11.628 Type 2 diabetes mellitus with other skin complications; Z79.84 Long term (current) use of oral hypoglycemic drugs
CPT/HCPCS: 97597

== ENCOUNTER 2023-08-08 11:03 | Outpatient (CLI) | payer MEDICARE, MEDICAID, SELFPAY ==
--- OUTSIDE RECORDS SUMMARY | 2023-08-08 11:06 | XMS_ITS | Referral Summary ---
Author Organization [facility] Address [address] [place] [address] Care Team Providers Care Radiographer Name Role Phone Elsewhere, Pcp Primary Care Provider Unavailabl e Source Comments Patient records contain information from all sites at [facility]. For routine questions regarding patient records, call [phone] during business hours, M-F 8:00 AM - 5:00 PM Central Time. Record requests for emergency care only can be directed to [phone] at any time.[facility] Encounters Date Type Department Care Team Description 05/14/2023 Clinical Communication Department of Neurology in [address] [phone] Juan Jose Martin M.B., Ch.B. Form Review ([facility] F2F Encounter) from Last 3 Months Allergies Active Allergy [...] Given: Not Answered Comments:Smokes more when stressed [facility] Utilities Answer Date Recorded In the past 12 months has [facility] [place], [place], or water [employer] threatened to shut off services in your [...] How often do you attend adventism or episcopal serv ices? Never 01/25/2022 Do you belong [...] medical care, and heating? Very hard 01/25/2022 [facility] of Occupat ional Health - Occupational Stress [...] money to buy more. Often true 03/31/19 24 Within the past 12 months, t he [...] Sex Assigned at Female 01/25/2022 2:30 PM PERL PROGRAMMER Gender Identity Female 01/25/2022 2:30 PM PERL PROGRAMMER Sexual Orientation Straight 01/25/2022 2: 30 PM PERL PROGRAMMER Last Filed Vital Signs Vital Sign Reading Time Taken Comments Blood Pressure 96/66 04/24/2023 9:27 AM CDT Pulse 73 04/24/2023 9:27 AM CDT Temperature 36.6 ??C (97.9 ??F) 12/19/2020 6:19 AM CS T Respiratory Rate 16 12/19/2020 6:19 AM PERL PROGRAMMER Oxygen Saturation 94% 12/19/2020 6:19 AM PERL PROGRAMMER Inhaled Oxygen Concentration - - Weight 104 kg (228 lb 13.4 oz) 12/28/2020 8:51 A M PERL PROGRAMMER Height 175.3 cm (5' 9) 12/17/2020 10:53 PM PERL PROGRAMMER Body Mass Index 33.79 12/17/2020 10:53 PM PERL PROGRAMMER Plan of Treatment Not on file Medical Devices Implanted Type Area Ldr Nurse Device Identifier Shelf Expiration Date Model / [...] HORMONE-SENSITIVE (S-TSH), S Routine 03/11/2023 4:45 AM PERL PROGRAMMER EXTI LIPID PANEL W REFLEX MEASURED LDL Routine 11/30/2022 4:09 PM CDT BI BREAST SCREENING BILATERAL WITH TOMOSYNTHESIS Routine 06/07/2022 9:19 AM CDT OPHTHALMOLOGY IMAGE EXAM Routine 03/26/2015 12:00 AM PERL PROGRAMMER CHRONIC VIRAL HEPATITIS PROFILE Routine 04/28/2014 6:41 PM CDT HIV-1/-2 AG AND AB SCREEN Routine 04/28/2014 6:41 PM CDT HEMOGLOBIN A1C, B Routine 04/27/2014 1:2 2 PM CDT from Last 3 Months or Most Recently Relevant to Health Maintenance Results * OPHTHALMOLOGY IMAGE EXAM (03/26/2015 12:00 AM PERL PROGRAMMER) Anatomical Region Laterality Modality Other 03/26/2015 Addenda Addendum by ProviderJames M.D. on 03/26/2015 12:00 AM PERL PROGRAMMER OPH^^^MCR Eyes Visual [place] 03/26/2015 00:00:00 Historical Provider IMG NON RAD IMAGING PROCEDURES * HIV-1/-2 Ag and Ab Screen (04/28/2014 6:41 PM CDT) HIV-1/-2 Ag and Ab Screen, S Negative Negative [facility] Comment: Negative result does not rule out HIV infection. If ? acute HIV infection is suspected in a high-risk ? individual, submit plasma specimen for HIV-1 RNA ? quantification test (HIVQU) and/or HIV-2 DNA/RNA ? test (FHV2Q). ? 04/28/2014 6:41 PM CDT 04/28/2014 6:41 PM CDT Cirilo Mendez M.D. LAB [employer] IOLOGY - BLOOD ORDERABLES Performing Organization Address [facility] de Phone Number [facility] [address] * Chronic Hepatitis Profile (04/28/2014 6:41 PM CDT) Pathologist [facility] HBs Antigen, S Negative Negative [facility] HBc Total Ab, S Negative Negative [facility] HBs Antibody,S Negative Unvaccinated : Negative; Vaccinated: Positive [facility] Comment:Patient is presumed to be not immune to infection with HBV. HBs Antibody, Quantitative, S <5.0 Unvaccinated : <5.0; Vaccinated: >=12.0 MIU/ML [facility] HCV Ab, S Negative Negative [facility] Comment:Jcazid-mp-fyzuye rat io is <1.00. 04/28/2014 6:41 PM CDT 04/28/2014 6:41 PM CDT Cirilo Mendez M.D. LAB [employer] IOLOGY - BLOOD ORDERABLES Performing Organization Address [facility] de Phone Number [facility] [address] * Hemoglobin A1c (04/27/2014 1:22 PM CDT) Pathologist [facility] Hemoglobin A1c, B 5.1 4.0 - 6.0 % [facility] 04/27/2014 1:22 PM CDT 04/27/2014 1:22 PM CDT Db Sousa M.D., M.A. LAB BLOOD ADD -ON [facility] [address] [place] [address], [facility] from Last 3 Months or Most Recently Relevant to Health Maintenance Advance Directives For more information, please contact: [phone] * Full Code (Latest Code Status on File) Date Activated Date Inactivated Comments 12/18/2020 1:35 AM 12/19/2020 3:25 PM Question Answer Comments Full Code: Discussed Care Teams Radiographer Relationship Specialty Start Date End Date Elsewhere, Pcp PCP - General Family Medicine 12/19/20
--- OUTSIDE RECORDS SUMMARY | 2023-08-08 11:06 | XMS_ITS | Encounter Summary ---
Author Organization [facility] Address [address] [place] [address] Care Team Providers Care Planning Associate Name Role Phone Elsewhere, Pcp Primary Care Provider Unavailabl e Reason for Visit * Reason Onset Date Comments Form Review 05/14/2023 [place] [id number] E ncounter Encounter Details Date Type Department Care Team (Latest Contact Info) Description 05/14/2023 Clinical Communication Department of Neurology in [place], [place] [address] [place] [phone] Juan Jose Martin M.B., Ch.B. [address] [place] [phone] Form Review ([address] Encounter) Social History Tobacco Use Types Packs/Day Years Used Date Smoking Tobacco: Light Smoker Smokeless Tobacco: Never Comments:Smokes more when st ressed [facility] Utilities Answer Date Recorded In the [...] declined 01/25/2022 How often do you attend cheondoism or yarsanism serv ices? Never 01/25/2022 Do you belong to any clubs o r organizations such as cheondoism groups, unions, fraternal or athletic groups, or [...] medical care, and heating? Very hard 01/25/2022 [facility] of Occupat ional Health - Occupational Stress [...] Sex Assigned at Female 01/25/2022 2:30 PM BEVERAGE STEWARD Gender Identity Female 01/25/2022 2:30 PM BEVERAGE STEWARD Sexual Orientation Straight 01/25/2022 2: 30 PM BEVERAGE STEWARD documented as of this encounter Miscellaneous Notes * Telephone Encounter - Raisa Jaquez L.P.N. - 05/17/2023 10:16 AM CDT Form faxed back to facility and sent for scanning. * Telephone Encounter - Raisa Jaquez L.P.N. - 05/14/2023 10:11 AM CDT Form was emailed to Dr. Martin for electronic review/signature. PSYCHOLOGY PROFESSOR: [facility] PHONE NUMBER: [phone] [facility] En[facility] INSTRUCTIONS: Fax information to [phone] documented in this encounter Plan of Treatment Not on file documented as of this encounter Visit Diagnoses Not on filedocumented in this encounter Care Teams Planning Associate Relationship Specialty Start Date End Date Elsewhere, Pcp PCP - General Family Medicine 12/19/20 documented as of this encounter
--- OUTSIDE RECORDS SUMMARY | 2023-08-08 11:06 | XMS_ITS | Patient Health Record ---
Author Organization [facility] Address [address] [place] [address] [address] [place] [address] Care Team Providers Care Grocery Buyer Name Role Phone Laurence Mujica Primary Care Provider UnavailDavid Tripathi Unavailable [phone] Raymond Jurado DO Unavailable Unavailable Victor Hugo Wheat Unavailable [phone] Anton Griffin Unavailable [phone] Rod Golden Unavailable [phone] Fabian Walsh Unavailable [phone] ALLERGIES Allergen (clinical drug ingredient) Drug/Non Drug Allergy documented on EMR Reaction Allergy Type Onset Date Status fentanyl Fentanyl Hallucinations Drug Allergy Ac tive RESULTS Component Value Reference Range Notes Urine toxicology Reviewed date:11/14/2022 03:40:36 PM Interpretation:See Results Performing Lab: Notes/Report: See Results CARLOS Buprenophine OPI 300 0 AMP Ethanol MET Creatinine MDMA pH Specific Buford BAR BZO OXY See Results MTD Urine toxicology Reviewed date:11/14/2022 03:40:36 PM Interpretation:See Results Performing Lab: Notes/Report: See Results CARLOS Buprenophine OPI 300 0 AMP Ethanol MET Creatinine MDMA pH Specific Buford BAR BZO OXY See Results MTD Urine toxicology Reviewed date:05/21/2023 12:21:59 PM Interpretation:See Results Performing Lab: Notes/Report: See Results CARLOS Buprenophine OPI 300 0 AMP Ethanol MET Creatinine MDMA pH Specific Buford BAR BZO OXY See Results MTD Urine toxicology Reviewed date:05/21/2023 12:21:59 PM Interpretation:See Results Performing Lab: Notes/Report: See Results CARLOS Buprenophine OPI 300 0 AMP Ethanol MET Creatinine MDMA pH Specific Buford BAR BZO OXY See Results MTD Urine toxicology Reviewed date:03/07/2023 03:21:55 PM Interpretation:See Results Performing Lab: Notes/Report: See Results CARLOS Buprenophine OPI 300 1000 AMP Ethanol MET Creatinine MDMA pH Specific Buford BAR BZO OXY See Results MTD REASON FOR REFERRAL No Information MEDICATIONS Medication SIG (Take, Route, Frequency, Duration) Notes Start Date End Date Status Dilaudid 2 MG 1 tablet as needed O rally every 4 hrs for 30 days 07/31/2023 Active Amantadine HCl 100 MG Oral for 30 Days Active DULoxetine HCl 60 MG Oral for 32 Days Active ARIPiprazole 30 MG 1 tablet Oral Once a day for 90 days Active Cetirizine HCl 10 MG Oral for 30 Days Active Amphetamine-Dextroamphetam ine 15 MG 1 tablet Orally once a day A ctive Ondansetron [address] 1 TABLET (4 MG ) ON THE TONGUE EVERY 8 HOURS IF NEEDED FOR NAUSEA/VOMITING. Oral for 10 Days Active Trulicity 0.75 MG/0.5ML Subcutaneous for 28 Days Active Atorvastatin Calcium 20 MG Oral for 90 Days Active Omeprazole 40 MG Oral for 90 Days Active Eszopiclone 3 MG 1 tablet immediately before bedtime Oral Once a day for 30 days Active Fluticasone Propionate 50 MCG/ACT INHALE 1-2 SPRAYS TO BOTH NOSTRILS ONCE DAILY. Nasal for 24 Days Active Famotidine 40 MG Oral for 90 Days Active Dimethyl Fumarate 240 MG TAKE ONE CAPSUL E BY MOUTH TWO TIMES A DAY Oral for 30 Days Active SOCIAL HISTORY Tobacco Use: Social History [...] dependence, uncomplicated (F11.20) Active confirmed Opioid dependence (38915308) Problem Personality disorder, unspecified (F60.9) 9 Active confirmed Unspecified Personality Disorder; rule out mixed ( borderline, dependent, negativistic, explosive traits); rule out organic (74096169) Problem Other chronic pain (G89.29) Active confirmed Chronic pain (03620261) Problem Rheumatoid arthritis, unspecified (M06.9) Active confirmed Rheumatoid arthritis (58210214) Problem Systemic lupus erythematosus, unspecified (M32.9) Active confirmed Systemic lupus erythematosus (58950220) Problem Pain in leg, unspecified (M79.606) Active confirmed Pain in limb (05849216) Problem Fibromyalgia (M79.7) Active confirmed Fibromyalgia (109997451) VITAL SIGNS Blood pressure diastolic 72 mm Hg 07/31/2023 Height 69 in 07/31/2023 Blood pressure systolic 120 mm Hg 07/31/2023 Weight 187 lbs 07/31/2023 BMI 27.61 kg/m2 07/31/2023 Encounters Encounter Location Date Provider Diagnosis BV [facility] [address] [place] [address] 08/22/2022 Victor Hugo Wheat [facility] [address] [place] [address] [address] [place] [address] 10/26/2022 Anton Bolick Other chronic pain G89.29 [facility] [address] [place] [address] [address] [place] [address] 12/25/2022 Anton Bolick Other chronic pain G89.29 [facility] [address] [place] [address] [address] [place] [address] 2023 Anton Bolick [facility] [address] [place] [address] [address] [place] [address] 02/06/2023 Anton Bolick [facility] [address] [place] [address] [address] [place] [address] 05/11/2023 Anton Bolick [address] [facility] [address] [place] [address] 01/16/2023 Anton Bolick Pain in leg, unspecified M79.606 ; Fibromyalgia M79.7 and Other chronic pain G89.29 [facility] [address] [place] [address] 2023 Anton Bolick Pain in leg, unspecified M79.606 ; Fibromyalgia M79.7 ; Other chronic pain G89.29 ; [facility] (current) use of opiate analgesic Z79.891 ; Opioid dependence, uncomplicated F11.20 and Encounter for screening for other disorder Z13.89 [address] [facility] [address] [place] [address] 11/21/2022 Anton Bolick Pain in leg, unspecified M79.606 ; Fibromyalgia M79.7 and Other chronic pain G89.29 [address] [facility] [address] [place] [address] 12/20/2022 Anton Bolick Pain in leg, unspecified M79.606 ; Fibromyalgia M79.7 and Other chronic pain G89.29 [address] [facility] [address] [place] [address] 08/30/2022 Anton Bolick Pain in leg, unspecified M79.606 ; Fibromyalgia M79.7 and Other chronic pain G89.29 [address] [facility] [address] [place] [address] 09/27/2022 Anton Bolick Pain in leg, unspecified M79.606 ; Fibromyalgia M79.7 and Other chronic pain G89.29 [address] [facility] [address] [place] [address] 10/25/2022 Anton Bolick Pain in leg, unspecified M79.606 ; Fibromyalgia M79.7 ; Other chronic pain G89.29 ; 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.891 and Opioid dependence, uncomplicated F11.20 [address] [facility] [address] [address] 06/06/2023 Anton Bolick Fibromyalgia M79.7 ; Pain in leg, unspecified M79.606 and Other chronic pain G89.29 [address] [facility] [address] [place] [address] 07/04/2023 Anton Bolick Other chronic pain G89.29 and Pain in leg, unspecified M79.606 [address] [facility] [address] [place] [address] 07/31/2023 Anton Bolick Pain in leg, unspecified M79.606 ; Fibromyalgia M79.7 and Other chronic pain G89.29 [address] [facility] [address] [place] [address] 02/21/2023 Anton Bolick [address] [facility] [address] [place] [address] 03/07/2023 Anton Bolick Pain in leg, unspecified M79.606 ; Fibromyalgia M79.7 ; Other chronic pain G89.29 ; [facility] (current) use of opiate analgesic Z79.891 ; Opioid dependence, uncomplicated F11.20 and Encounter for screening for other disorder Z13.89 [address] [facility] [address] [place] [address] 03/08/2023 Rod Golden Pain in leg, unspecified M79.606 ; Fibromyalgia M79.7 and Other chronic pain G89.29 [address] [facility] [address] [place] [address] 03/13/2023 Anton Bolick Pain in leg, unspecified M79.606 ; Fibromyalgia M79.7 and Other chronic pain G89.29 [address] [facility] [address] [place] [address] 04/10/2023 Anton Bolick Fibromyalgia M79.7 ; Pain in leg, unspecified M79.606 and Other chronic pain G89.29 [address] [facility] [address] [place] [address] 05/08/2023 Anton Bolick Fibromyalgia M79.7 ; Pain in leg, unspecified M79.606 ; Other chronic pain G89.29 ; [facility] (current) use of opiate analgesic Z79.891 and Opioid dependence, uncomplicated F11.20 [address] [facility] [address] [place] [address] 05/09/2023 Anton Bolick [address] [facility] [address] [place] [address] 02/01/2023 Fabian Nico [address] [facility] [address] [place] [address] 02/06/2023 Anton Griffin Pain in leg, unspecified M79.606 ; Fibromyalgia M79.7 ; Other chronic pain G89.29 ; 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.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 ; Opioid dependence, uncomplicated F11.20 and Encounter for screening for other disorder Z13.89 ASSESSMENTS Encounter Date Diagnosis Assessment Notes Treatment Notes Treatment Clinical Notes 09/27/2022 Pain in leg, unspecified (ICD-10 - M79.606) 10/25/2022 Pain in leg, unspecified (ICD-10 - M79.606) 12/20/2022 Pain in leg, unspecified (ICD-10 - M79.606) 06/06/2023 Fibromyalgia (ICD-10 - M79.7) 07/31/2023 Pain in leg, unspecified (ICD-10 - M79.606) 07/31/2023 Fibromyalgia (ICD-10 - M79.7) 03/08/2023 Pain in leg, unspecified (ICD-10 - M79.606) 07/04/2023 Other chronic pain (ICD-10 - G89.29) Mariana returns to clinic today for a follow up evaluation regarding her chronic dispersed body pain. I have reviewed the [facility] database and did not find any inconsistencies. [...] 12/25/2022 Other chronic pain (ICD-10 - G89.29) 03/13/2023 Pain in leg, unspecified (ICD-10 - M79.606) 03/07/2023 Pain in leg, unspecified (ICD-10 - M79.606) 02/06/2023 Pain in leg, unspecified (ICD-10 - M79.606) 08/30/2022 Pain in leg, unspecified (ICD-10 - M79.606) 05/08/2023 Pain in leg, unspecified (ICD-10 - M79.606) 05/08/2023 Fibromyalgia (ICD-10 - M79.7) 04/10/2023 Pain in leg, unspecified (ICD-10 - M79.606) 04/10/2023 Fibromyalgia (ICD-10 - M79.7) 10/26/2022 Other chronic pain (ICD-10 - G89.29) 01/16/2023 Pain in leg, unspecified (ICD-10 - M79.606) 11/21/2022 Pain in leg, unspecified (ICD-10 - M79.606) 2023 Pain in leg, unspecified (ICD-10 - M79.606) 2023 Fibromyalgia (ICD-10 - M79.7) 11/21/2022 Fibromyalgia (ICD-10 - M79.7) 01/16/2023 Fibromyalgia (ICD-10 - M79.7) 04/10/2023 Other chronic pain (ICD-10 - G89.29) Mariana returns to clinic today for a follow up evaluation regarding her chronic knees to feet pain. I have reviewed the [facility] database and did not find any inconsistencies. [...] with any questions, problems or concerns. 08/30/2022 Fibromyalgia (ICD-10 - M79.7) 05/08/2023 Other chronic pain (ICD-10 - G89.29) Mariana returns to clinic today for a follow up evaluation regarding her chronic pain. I have reviewed the [facility] database and did not find any inconsistencies. [...] with any questions, problems or concerns. 02/06/2023 Fibromyalgia (ICD-10 - M79.7) 03/07/2023 Fibromyalgia (ICD-10 - M79.7) 03/13/2023 Fibromyalgia (ICD-10 - M79.7) 06/06/2023 Pain in leg, unspecified (ICD-10 - M79.606) 03/08/2023 Fibromyalgia (ICD-10 - M79.7) 07/31/2023 Other chronic pain (ICD-10 - G89.29) Mariana returns to clinic today for a follow up evaluation regarding her chronic dispersed body pain. I have reviewed the [facility] database and did not find any inconsistencies. We discussed her current symptoms and medications. I will continue with a treatment plan consisting of conservative therapies at this time. Regarding medications, I have stopped her Oxycodone 10mg QID and restarted her on Dilaudid 2mg (#6 tabs/day) to address her acute pain symptoms related to the wound after a breast reduction in May. This treatment plan was reviewed with Mariana, and she was agreeable. I will continue to monitor her progress and she will follow up in one month or sooner if needed. Plan:1. Stop Oxycodone2. Start Dilaudid 2mg (#6 tabs per day)3. Follow up in one month Discharge instructions [...] or concerns. 12/20/2022 Fibromyalgia (ICD-10 - M79.7) 10/25/2022 Fibromyalgia (ICD-10 - M79.7) 09/27/2022 Fibromyalgia (ICD-10 - M79.7) 09/27/2022 Other chronic pain (ICD-10 - G89.29) Mariana is a 47-year-old female who returns to clinic today for follow up of chronic dispersed body pain. I have reviewed the [place] [employer] database and did not find any inconsistencies. [...] 06/06/2023 Other chronic pain (ICD-10 - G89.29) Mairana returns to clinic today for a follow up evaluation regarding her chronic pain. I have reviewed the [place] [employer] database and did not find any inconsistencies. [...] dispersed body pain. I have reviewed the [place] [employer] database and did not find any inconsistencies. [...] dispersed body pain. I have reviewed the [place] [employer] database and did not find any inconsistencies. [...] her chronic pain. I have reviewed the [place] [employer] database and we discussed her current symptoms and medications. Due to her recent procedure and residential treatment, Mariana has been prescribed sufficient pain medication for the time being. I have obtained ROIs to [facility] and the residential for further evaluation of her most recent treatment history. Otherwise she will follow up in a week to further discuss medication management. This treatment plan was reviewed with Mariana, and she was agreeable. Plan:1. [place] to [facility] and nursing [place]. Continue Oxycodone 20mg BID3. Follow up in [...] to feet pain. I have reviewed the [facility] database and did not find any inconsistencies. [...] 02/06/2023 Other chronic pain (ICD-10 - G89.29) 08/30/2022 Other chronic pain (ICD-10 - G89.29) Mariana returns to clinic today for a follow up evaluation regarding her chronic dispersed body pain. I have reviewed the [facility] database and did not find any inconsistencies. [...] dispersed body pain. I have reviewed the [facility] database and did not find any inconsistencies. [...] with any questions, problems or concerns. 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 I have reviewed the [facility] database and did not find any inconsistencies. [...] dispersed body pain. I have reviewed the [facility] database and did not find any inconsistencies. [...] with any questions, problems or concerns. 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 03/07/2023 Encounter for screening for other disorder (ICD-10 - Z13.89) 02/06/2023 Encounter for screening for other disorder (ICD-10 - Z13.89) 2023 Maribel Deras, am serving as a scribe to document [...] decisions made during the clinic visit. 12/20/2022 Jamilah Min, Garret Martin, am serving as a scribe to document services personally performed by Anton Griffin PA-C, based upon my observations and the provider's statements to me. All documentation has been reviewed by the aforementioned PAMichaelC. Anton Min PA-C, attest that the above named individual is acting in scribe capacity, has observed my performance of the services and has documented them in accordance with my direction. The documentation recorded by the scribe accurately reflects the service I personally performed and the decisions made during the clinic visit. 08/30/2022 Other Adry Min, am serving as a scribe to document services personally performed by Anton Griffin PA-C, based upon my observations and the provider's statements to me. All documentation has been reviewed by the aforementioned PA-C. Anton Min PA-C, attest that the above [...] has been reviewed by the aforementioned PA-C. Anton Min PA-C, attest that the above [...] the decisions made by them. 04/10/2023 Other I, Nette Avalos lisbeth, am serving as a scribe to document [...] the decisions made by me. 03/08/2023 Other I, Navneet Lopez , am serving [...] the decisions made by her. 11/21/2022 Other I, Maribel kong, am serving [...] is acting in scribe capacity, has observed Antonedwin Griffin's performance of the services and has [...] by the aforementioned PA-C as well as Albin Michaud MD, prior to being entered into the official medical record. IAlbin MD attest that the above named individual is acting in scribe capacity, has observed Antonedwin Griffin's performance of the services and has documented them in accordance with her direction. The documentation recorded by the scribe accurately reflects the service Anton Griffin PA-C, personally performed and the decisions made by her. 01/16/2023 Other IChris , am serving as a scribe to document services personally performed by Anton Griffin PA-C, based upon my observations and the provider's statements to me. All documentation has been reviewed by the aforementioned PA-C as well as Albin Michaud MD, prior [...] the decisions made by her. 05/08/2023 Other INavneet , am serving as a scribe to [...] the scribe accurately reflects the service Anton Griffni PA-C, personally performed and the decisions made by her. 06/06/2023 Other Mechelle, Alex Berlin ceballos, am serving as a scribe to [...] being entered into the official medical record. Anton Min PA-C attest that the above named individual is acting in scribe capacity, has observed my performance of the services and has documented them in accordance with my direction. The documentation recorded by the scribe accurately reflects the service I personally performed and the decisions made by me. 07/31/2023 Other Iain Min, am serving as a scribe to [...] performed and the decisions made by her. PLAN OF TREATMENT Next Appt Details Provider Name:Anton schmidt, 08/29/2023 02:00:00 PM, [address], [address], [place], [address], Insurance Providers Payer Name Payer Address Payer Phone Subscriber Number Group Number Insured Name Patient Relationship to Insured Coverage Start Date Coverage End Date [facility] Complete/A LEYDA [address] [address] [place] [address] [id number] Mariana Muhammad Self - patient is the insured 4 [employer] [address] [place] [address] [id number] Mariana Muhammad Self - patient is the insured 4 Medicare Part B [employer] [address] [place] [address] [id number] Mariana Muhammad Self - patient is the insured 3 [facility] [address] [address] [place], [place] [id number] Mariana Muhammad Self - patient is the insured 3 MEDICAL (GENERAL) HISTORY Medical History History ICD Code Acid reflux Anxiety Arthritis Depression Diabetes Fibromyalgia Migraine headaches Multiple sclerosis, relapsing-remitting Rheumatoid arthritis Thyroid problem Lupus PTSD (post-traumatic stress disorder) Chronic insomnia Convulsions breast reduction Surgical History Surgery Date(Month/Year) hysterectomy cholecystectomy tonsillectomy sinus surgery Eye surgery Breast reduction 05/2023 Hospitalization History Reason Date(Month/Year) ER and TCU 02/2023 MS relapse 02/2021 MS relapse 12/2020
--- OUTSIDE RECORDS SUMMARY | 2023-08-08 11:06 | XMS_ITS ---
Author Organization [facility] Address [address] [place] [address] Care Team Providers Care Geothermal Installer Name Role Phone Unavailable Unavailable Unavailable Surgery Details Not on file Complications Check Surgery Details section. Procedure Estimated Blood Loss Check Surgery Details section. Procedure Findings Check Surgery Details section. Procedure Specimens Taken Check Surgery Details section.
--- OUTSIDE RECORDS SUMMARY | 2023-08-08 11:06 | XMS_ITS | Encounter Summary ---
Author Organization [facility] Address [address] [place] [address] Care Team Providers Care Supervisor Agricultural Education Name Role Phone Elsewhere, Pcp Primary Care Provider Unavailabl e Encounter Details Date Type Department Care Team (Late st Contact Info) Description 03/25/2015 Historical Ophthalmology [facility] Jocelin Scott M.D. 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 WORKER Gender Identity Female 01/25/2022 2:30 PM ORNAMENTAL BRONZE WORKER Sexual Orientation Straight 01/25/2022 2: 30 PM ORNAMENTAL BRONZE WORKER documented as of this encounter Progress Notes [...] light perception) CDM Reports - [facility] Id: [id number] Status: Fnl documented in this encounter Plan of Treatment Not on file documented as of this encounter Visit Diagnoses Not on filedocumented in this encounter Additional Health Concerns Infection Onset Date Last Indicated Resolved Time COVID19 Pending 12/17/2020 12/17/2020 01/06/2021 4 :54 AM ORNAMENTAL BRONZE WORKER documented as of this encounter Care Teams Supervisor Agricultural Education Relationship Specialty Start Date End Date Elsewhere, Pcp PCP - General Family Medicine 12/19/20 documented as of this encounter
--- OUTSIDE RECORDS SUMMARY | 2023-08-08 11:06 | XMS_ITS | Encounter Summary ---
Author Organization [facility] Address [address] [place] [address] Care Team Providers Care Contact Center Analyst Name Role Phone Elsewhere, Pcp Primary Care Provider Unavailabl e Encounter Details Date Type Department Care Team (Late st Contact Info) Description 12/15/2014 Historical Ophthalmology [facility] Adolph De Santiago M.D., Ph.D. [address] [place] [address] Social History Tobacco Use Types Packs/Day Years Used Date Smoking Tobacco: Never Assessed Sex and Gender Information Value Date Recorded Sex Assigned at Female 01/25/2022 2:30 PM TITLE I COORDINATOR Gender Identity Female 01/25/2022 2:30 PM TITLE I COORDINATOR Sexual Orientation Straight 01/25/2022 2: 30 PM TITLE I COORDINATOR documented as of this encounter Progress [...] (remains no light perception) CDM Reports - [employer] Id: [id number] Status: Fnl documented in this encounter Plan of Treatment Not on file documented as of this encounter Visit Diagnoses Not on filedocumented in this encounter Additional Health Concerns Infection Onset Date Last Indicated Resolved Time COVID19 Pending 12/17/2020 12/17/2020 01/06/2021 4 :54 AM TITLE I COORDINATOR documented as of this encounter Care Teams Contact Center Analyst Relationship Specialty Start Date End Date Elsewhere, Pcp PCP - General Family Medicine 12/19/20 documented as of this encounter
--- OUTSIDE RECORDS SUMMARY | 2023-08-08 11:06 | XMS_ITS | Encounter Summary ---
Author Organization [facility] Address [address] [place] [address] Care Team Providers Care Is Support Analyst Name Role Phone Elsewhere, Pcp Primary Care Provider Unavailabl e Encounter Details Date Type Department Care Team (Late st Contact Info) Description 07/20/2006 Historical Ophthalmology RST OPH Roddy Palmer M.D. 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 CD Reports - EYEGEN Id: [id number] Status: Fnl documented in this encounter Plan of Treatment Not on file documented as of this encounter Visit Diagnoses Not on filedocumented in this encounter Additional Health Concerns Infection Onset Date Last Indicated Resolved Time COVID19 Pending 12/17/2020 12/17/2020 01/06/2021 4 :54 AM JUNIOR PROGRAMMER ANALYST documented as of this encounter Care Teams Is Support Analyst Relationship Specialty Start Date End Date Elsewhere, Pcp PCP - General Family Medicine 12/19/20 documented as of this encounter
--- OUTSIDE RECORDS SUMMARY | 2023-08-08 11:06 | XMS_ITS | Encounter Summary ---
Author Organization [facility] Address [address] [place] [address] Care Team Providers Care Airfield Engineer Officer Name Role Phone Elsewhere, Pcp Primary Care Provider Unavailabl e Encounter Details Date Type Department Care Team (Late st Contact Info) Description 08/21/2014 Historical Ophthalmology RST OPH Adolph De Santiago M.D., Ph.D. [address] [place] [address] Social History Tobacco Use Types Packs/Day Years Used Date Smoking Tobacco: Never Assessed Sex and Gender Information Value Date Recorded Sex Assigned at Female 01/25/2022 2:30 PM ELECTRICIAN UNDERGROUND Gender Identity Female 01/25/2022 2:30 PM ELECTRICIAN UNDERGROUND Sexual Orientation Straight 01/25/2022 2: 30 PM ELECTRICIAN UNDERGROUND documented as of this encounter Progress Notes [...] eye or something. She was inpatient at [facility] in April [address] Marroquin for a right periorbital lesion.On 04/29/14, ENT took the patient to the operating room and performed an aspiration and culture, orbital, periorbital, and paranasal sinus contents. Pathology showed chronic inflammation with no sign of infection. The patient was transferred to [facility] yesterday (08/20/14) from [facility] in [place] for right sided hemiplegia and hemisensory loss [...] has not followed-up in 3-5 years witha fish peddler. She presented to the [place] ED with progressive right sided hemisensory loss, [...] at home she has been taking Lyrica, Hayes, and Vicodin; however she is unsure what [...] light perception) CDM Reports - EYEGEN Id: [id number] Status: Fnl documented in this encounter Plan of Treatment Not on file documented as of this encounter Visit Diagnoses Not on filedocumented in this encounter Additional Health Concerns Infection Onset Date Last Indicated Resolved Time COVID19 Pending 12/17/2020 12/17/2020 01/06/2021 4 :54 AM ELECTRICIAN UNDERGROUND documented as of this encounter Care Teams Airfield Engineer Officer Relationship Specialty Start Date End Date Elsewhere, Pcp PCP - General Family Medicine 12/19/20 documented as of this encounter
--- OUTSIDE RECORDS SUMMARY | 2023-08-08 11:06 | XMS_ITS | Clinical Summary ---
Author Organization [facility] Address [address] [place] [address] Care Team Providers Care Mgmt Analyst Name Role Phone Elsewhere, Pcp Primary Care Provider Unavailabl e Source Comments Patient records contain information from all sites at [facility]. For routine questions regarding patient records, call [phone] during business hours, M-F 8:00 AM - 5:00 PM Central Time. Record requests for emergency care only can be directed to [phone] at any time.[facility] Allergies Active Allergy Reactions Criticality Noted [...] 05/14/2023 Clinical Communication Department of Neurology in [address] [address] Juan Jose Martin M.B., Ch.B. Form Review ([facility] F2F Encounter) from Last 3 Months Immunizations Name Administration [...] Given: Not Answered Comments:Smokes more when stressed [facility] Utilities Answer Date Recorded In the past 12 months has e [employer], gas, oil, or water [employer] threatened to shut off services in your [...] declined 01/25/2022 How often do you attend buddhism or synagogue serv ices? Never 01/25/2022 Do you belong to any clubs o r organizations such as buddhism groups, unions, fraternal or athletic groups, or [...] medical care, and heating? Very hard 01/25/2022 [facility] ional [facility] - Occupational [...] place to sleep or slept in a halfway (including now)? No 01/25/2022 Nutrition Answer Date [...] Sex Assigned at Female 01/25/2022 2:30 PM WAITER/WAITRESS TOURIST CLASS Gender Identity Female 01/25/2022 2:30 PM WAITER/WAITRESS TOURIST CLASS Sexual Orientation Straight 01/25/2022 2: 30 PM WAITER/WAITRESS TOURIST CLASS Last Filed Vital Signs Vital Sign Reading Time Taken Comments Blood Pressure 96/66 04/24/2023 9:27 AM CDT Pulse 73 04/24/2023 9:27 AM CDT Temperature 36.6 ??C (97.9 ??F) 12/19/2020 6:19 AM CS T Respiratory Rate 16 12/19/2020 6:19 AM WAITER/WAITRESS TOURIST CLASS Oxygen Saturation 94% 12/19/2020 6:19 AM WAITER/WAITRESS TOURIST CLASS Inhaled Oxygen Concentration - - Weight 104 kg (228 lb 13.4 oz) 12/28/2020 8:51 A M WAITER/WAITRESS TOURIST CLASS Height 175.3 cm (5' 9) 12/17/2020 10:53 PM WAITER/WAITRESS TOURIST CLASS Body Mass Index 33.79 12/17/2020 10:53 PM WAITER/WAITRESS TOURIST CLASS Plan of Treatment Health Maintenance Due Date [...] or Tdap) 05/31/2021 06/01/2011, 06/11/1991 COVID-19 Vaccine ( - season) 2022 11/24/2021, 12/15/2020, 09/27/2020 Depression Screening (Annual PHQ-2) 02/05/2023 Mammogram 06/08/2023 06/07/2022, 06/07/2022 Influenza Vaccine (#1) 2023 , 12/18/2020, 02/10/2020, Additional history exists Lipid (Cholesterol) Screening 12/01/2023 11/30/2022, 12/01/2021, 02/07/2019, [...] this topic Medical Devices Implanted Type Area Passementerie Worker Device Identifier Shelf Expiration Date Model / [...] HORMONE-SENSITIVE (S-TSH), S Routine 03/11/2023 4:45 AM WAITER/WAITRESS TOURIST CLASS EXTI LIPID PANEL W REFLEX MEASURED LDL Routine 11/30/2022 4:09 PM CDT BI BREAST SCREENING BILATERAL WITH TOMOSYNTHESIS Routine 06/07/2022 9:19 AM CDT OPHTHALMOLOGY IMAGE EXAM Routine 03/26/2015 12:00 AM WAITER/WAITRESS TOURIST CLASS CHRONIC VIRAL HEPATITIS PROFILE Routine 04/28/2014 6:41 PM CDT HIV-1/-2 AG AND AB SCREEN Routine 04/28/2014 6:41 PM CDT HEMOGLOBIN A1C, B Routine 04/27/2014 1:2 2 PM CDT from Last 3 Months or Most Recently Relevant to Health Maintenance Results * OPHTHALMOLOGY IMAGE EXAM (03/26/2015 12:00 AM WAITER/WAITRESS TOURIST CLASS) Anatomical Region Laterality Modality Other 03/26/2015 Addenda Addendum by ProviderJames M.D. on 03/26/2015 12:00 AM WAITER/WAITRESS TOURIST CLASS OPH^^^MCR Eyes Visual [place] 03/26/2015 00:00:00 Historical Provider IMG NON RAD IMAGING PROCEDURES * HIV-1/-2 Ag and Ab Screen (04/28/2014 6:41 PM CDT) HIV-1/-2 Ag and Ab Screen, S Negative Negative [facility] Comment: Negative result does not rule out HIV infection. If ? acute HIV infection is suspected in a high-risk ? individual, submit plasma specimen for HIV-1 RNA ? quantification test (HIVQU) and/or HIV-2 DNA/RNA ? test (FHV2Q). ? 04/28/2014 6:41 PM CDT 04/28/2014 6:41 PM CDT Cirilo Mendez M.D. LAB MICROB IOLOGY - BLOOD ORDERABLES Performing Organization Address [facility] de Phone Number [facility] [address] * Chronic Hepatitis Profile (04/28/2014 6:41 PM CDT) Pathologist [facility] HBs Antigen, S Negative Negative [facility] HBc Total Ab, S Negative Negative [facility] HBs Antibody,S Negative Unvaccinated : Negative; Vaccinated: Positive [facility] Comment:Patient is presumed to be not immune to infection with HBV. HBs Antibody, Quantitative, S <5.0 Unvaccinated : <5.0; Vaccinated: >=12.0 MIU/ML [facility] HCV Ab, S Negative Negative [facility] Comment:Llqwoo-sj-xmelqj rat io is <1.00. 04/28/2014 6:41 PM CDT 04/28/2014 6:41 PM CDT Cirilo Mendez M.D. LAB [facility] IOLOGY - BLOOD ORDERABLES Performing Organization Address [facility] de Phone Number [facility] [address] * Hemoglobin A1c (04/27/2014 1:22 PM CDT) Pathologist [facility] Hemoglobin A1c, B 5.1 4.0 - 6.0 % [facility] 04/27/2014 1:22 PM CDT 04/27/2014 1:22 PM CDT Db Sousa M.D., M.A. LAB BLOOD ADD -ON [facility] [address] [place] [phone], [facility] from Last 3 Months or Most Recently Relevant to Health Maintenance Advance Directives For more information, please contact: [phone] * Full Code (Latest Code Status on File) Date Activated Date Inactivated Comments 12/18/2020 1:35 AM 12/19/2020 3:25 PM Question Answer Comments Full Code: Discussed Care Teams Mgmt Analyst Relationship Specialty Start Date End Date Elsewhere, Pcp PCP - General Family Medicine 12/19/20
--- OUTSIDE RECORDS SUMMARY | 2023-08-08 11:06 | XMS_ITS | Encounter Summary ---
Author Organization [facility] Address [address] [place] [address] Care Team Providers Care Process Development Chemist Name Role Phone Elsewhere, Pcp Primary Care Provider Unavailabl e Encounter Details Date Type Department Care Team (Late st Contact Info) Description 04/29/2014 Historical Ophthalmology RST OPH Gracie Marroquin M.D. [address] [place] [address] Social History Tobacco Use Types Packs/Day Years Used Date Smoking Tobacco: Never Assessed Sex and Gender Information Value Date Recorded Sex Assigned at Female 01/25/2022 2:30 PM WAFER POLISHER Gender Identity Female 01/25/2022 2:30 PM WAFER POLISHER Sexual Orientation Straight 01/25/2022 2: 30 PM WAFER POLISHER documented as of this encounter Progress Notes [...] Patient had a dilated eye exam at [facility] Missy Price on 04/27/14 swelling and pain of the right eye. His exam indicated a third nerve palsy and the patient was referred to Neurology at that time. She presented to [facility] ED later that day and was admitted [...] Exam: MRI Hd wo&w Indications: ED Acute 08375/MRI Head/? galdino santos w R CN 3/5 palsy. special orb; t ORIGINAL REPORT - 27-Apr-2014 19:39:00 [facility] EXAM: MRI Brain without and with IV [...] surgery. Electronically signed by: Leatha Gunderson MD [id number] 27-Apr-2014 19:39 HR: confirmed above history. syptoms x last 1 week, pain around right eye, numbness and tingling inupper right face/forehead IMPRESSION / REPORT / PLAN Consult requested by: NEURO [phone] #1 Orbital inflammation, right #2 History of [...] Pseudophakia, left CDM Reports - EYEGEN Id: [id number] Status: Fnl documented in this encounter Plan of Treatment Not on file documented as of this encounter Visit Diagnoses Not on filedocumented in this encounter Additional Health Concerns Infection Onset Date Last Indicated Resolved Time COVID19 Pending 12/17/2020 12/17/2020 01/06/2021 4 :54 AM WAFER POLISHER documented as of this encounter Care Teams Process Development Chemist Relationship Specialty Start Date End Date Elsewhere, Pcp PCP - General Family Medicine 12/19/20 documented as of this encounter
--- OUTSIDE RECORDS SUMMARY | 2023-08-08 11:06 | XMS_ITS | Encounter Summary ---
Author Organization [facility] Address [address] [place] [address] Care Team Providers Care Red Cross Executive Director Name Role Phone Elsewhere, Pcp Primary Care Provider Unavailabl e Encounter Details Date Type Department Care Team (Late st Contact Info) Description 09/18/2014 Historical Ophthalmology RST OPH Kristen Westfall M.D. Social History Tobacco Use Types Packs/Day Years Used Date Smoking Tobacco: Never Assessed Sex and Gender Information Value Date Recorded Sex Assigned at Female 01/25/2022 2:30 PM HAND SPINNER Gender Identity Female 01/25/2022 2:30 PM HAND SPINNER Sexual Orientation Straight 01/25/2022 2: 30 PM HAND SPINNER documented as of this encounter Progress Notes [...] / PLAN Consult requested by: Josi Martinez [phone] #1 Blurred vision left eye. Today she [...] optic atrophy. CD Reports - EYEGEN Id: [id number] Status: Fnl documented in this encounter Plan of Treatment Not on file documented as of this encounter Visit Diagnoses Not on filedocumented in this encounter Additional Health Concerns Infection Onset Date Last Indicated Resolved Time COVID19 Pending 12/17/2020 12/17/2020 01/06/2021 4 :54 AM HAND SPINNER documented as of this encounter Care Teams Red Cross Executive Director Relationship Specialty Start Date End Date Elsewhere, Pcp PCP - General Family Medicine 12/19/20 documented as of this encounter
--- OUTSIDE RECORDS SUMMARY | 2023-08-08 11:06 | XMS_ITS | Encounter Summary ---
Author Organization [facility] Address [address] [place] [address] Care Team Providers Care Drilling Field Specialist Name Role Phone Elsewhere, Pcp Primary Care Provider Unavailabl e Reason for Referral * Physical Therapy (Routine) - Authorized Specialty Diagnoses / Procedures Referred By David arnold Referred To Contact Physical Therapy Diagnoses Demyelinating Disease Central Nervous System (HCC) Wu Herrera M.B., Ch.B. [address] [place] [phone] Referral ID Status Reason Start Date Expiration Date Visits Requested Visits Authorized [id number] Authorized Service not available in [facility] 04/30/2023 10/29/2024 1 1 Reason for Visit * Reason Onset Date Comments External PT order 04/25/2023 Encounter Details Date Type Department Care Team (Latest Contact Info) Description 04/25/2023 Clinical Communication Department of Neurology in [address] [address] Wu Herrera M.B., Ch.B. [address] [place] [address] External PT order Social History Tobacco Use Types Packs/Day Years Used Date Smoking Tobacco: Light Smoker Smokeless Tobacco: Never Comments:Smokes more when st ressed [facility] Utilities Answer Date Recorded In the past [...] declined 01/25/2022 How often do you attend zoroastrian or oriental orthodox serv ices? Never 01/25/2022 Do you belong to any clubs o r organizations such as zoroastrian groups, unions, fraternal or athletic groups, or [...] and heating? Very hard 01/25/2022 [facility] ional [facility] - Occupational Stress [...] Sex Assigned at Female 01/25/2022 2:30 PM ACQUISITION MARKETING COORDINATOR Gender Identity Female 01/25/2022 2:30 PM ACQUISITION MARKETING COORDINATOR Sexual Orientation Straight 01/25/2022 2: 30 PM ACQUISITION MARKETING COORDINATOR documented as of this encounter Miscellaneous Notes * Addendum Note - Wu Herrera M.B., Ch.B. - 04/30/2023 3:45 PM CDTAddended by: UW HERRERA on: 04/30/2023 03:45 PM Modules accepted: Orders * Telephone Encounter - Megan Perez M.S.N., R.N. - 04/30/2023 3:36 PM CDT [facility] explained the agency they have 48 [...] of the agency which provided the service. YARD CLERK contacted [facility] and spoke with Araceli who confirmed that patient has received PT services from them in the past. Araceli said that the order can be faxed to them and it will be reviewed by the nurse fabrication manager and they will let us know if they are able to provide the service requested. Order along with face sheet faxed to [facility] Fax @ [phone] Patient was also called and updated on [...] will need outside order for PT in [place]. Thank you. documented in this encounter Plan of Treatment Not on file documented as of this encounter Visit Diagnoses Diagnosis Demyelinating Disease Central Nervous System (HCC)- Primary documented in this encounter Care Teams Drilling Field Specialist Relationship Specialty Start Date End Date Elsewhere, Pcp PCP - General Family Medicine 12/19/20 documented as of this encounter
--- OUTSIDE RECORDS SUMMARY | 2023-08-08 11:06 | XMS_ITS | Encounter Summary ---
Author Organization [facility] Address [address] [place] [address] Care Team Providers Care Billing Supervisor Name Role Phone Elsewhere, Pcp Primary Care Provider Unavailabl e Encounter Details Date Type Department Care Team (Late st Contact Info) Description 03/26/2015 Historical Ophthalmology RST OPH Adolph De Santiago M.D., Ph.D. [address] [place] [address] Social History Tobacco Use Types Packs/Day Years Used Date Smoking Tobacco: Never Assessed Sex and Gender Information Value Date Recorded Sex Assigned at Female 01/25/2022 2:30 PM COUNTER STACKER Gender Identity Female 01/25/2022 2:30 PM COUNTER STACKER Sexual Orientation Straight 01/25/2022 2: 30 PM COUNTER STACKER documented as of this encounter Progress Notes [...] light perception) #8 new optic perineuritis, right [facility] Reports - EYEGEN Id: [id number] Status: Fnl documented in this encounter Plan of Treatment Not on file documented as of this encounter Visit Diagnoses Not on filedocumented in this encounter Additional Health Concerns Infection Onset Date Last Indicated Resolved Time COVID19 Pending 12/17/2020 12/17/2020 01/06/2021 4 :54 AM COUNTER STACKER documented as of this encounter Care Teams Billing Supervisor Relationship Specialty Start Date End Date Elsewhere, Pcp PCP - General Family Medicine 12/19/20 documented as of this encounter
--- OUTSIDE RECORDS SUMMARY | 2023-08-08 11:07 | XMS_ITS | Encounter Summary ---
Author Organization [facility] Address [address] [place] [address] Care Team Providers Care Medical Transcription Supervisor Name Role Phone Elsewhere, Pcp Primary Care Provider Unavailabl e Encounter Details Date Type Department Care Team (Late st Contact Info) Description 01/11/2004 Historical Ophthalmology RST OPH Esequiel Reyes M.D. Social History Tobacco Use Types Packs/Day Years Used Date Smoking Tobacco: Never Assessed Sex and Gender Information Value Date Recorded Sex Assigned at Female 01/25/2022 2:30 PM UPPER TIER Gender Identity Female 01/25/2022 2:30 PM UPPER TIER Sexual Orientation Straight 01/25/2022 2: 30 PM UPPER TIER documented as of this encounter Progress Notes [...] planitis L CDM Reports - EYEGEN Id: [id number] Status: Fnl documented in this encounter Plan of Treatment Not on file documented as of this encounter Visit Diagnoses Not on filedocumented in this encounter Additional Health Concerns Infection Onset Date Last Indicated Resolved Time COVID19 Pending 12/17/2020 12/17/2020 01/06/2021 4 :54 AM UPPER TIER documented as of this encounter Care Teams Medical Transcription Supervisor Relationship Specialty Start Date End Date Elsewhere, Pcp PCP - General Family Medicine 12/19/20 documented as of this encounter
--- OUTSIDE RECORDS SUMMARY | 2023-08-08 11:07 | XMS_ITS | Clinical Summary ---
Author Organization [facility] Address [address] [place] [address] Care Team Providers Care Client Account Assistant Name Role Phone Roddy Trevino Primary Care Provider [phone] Allergies Active Allergy Reactions Criticality Noted Date [...] lb 9.6 oz) 04/10/2012 9:25 AM FIELD TECHNICAL SUPPORT CONSULTANT Height 171 cm (5' 7.32) 04/10/2012 9:2 5 AM FIELD TECHNICAL SUPPORT CONSULTANT Body Mass Index 30.81 04/10/2012 9:25 AM FIELD TECHNICAL SUPPORT CONSULTANT Plan of Treatment Not on file Care Teams Client Account Assistant Relationship Specialty Start Date End Date Roddy Trevino PCP - General 12/14/10
--- OUTSIDE RECORDS SUMMARY | 2023-08-08 11:07 | XMS_ITS | Referral Summary ---
Author Organization [place] Address [address] [place] [address] Care Team Providers Care Bottoming Machine Operator Name Role Phone Roddy Trevino Primary Care Provider [phone] Allergies Active Allergy Reactions Criticality Noted Date [...] (198 lb 9.6 oz) 04/10/2012 9:25 AM OYSTER PICKER Height 171 cm (5' 7.32) 04/10/2012 9:2 5 AM OYSTER PICKER Body Mass Index 30.81 04/10/2012 9:25 AM OYSTER PICKER Plan of Treatment Not on file Care Teams Bottoming Machine Operator Relationship Specialty Start Date End Date Roddy Trevino PCP - General 12/14/10
--- OUTSIDE RECORDS SUMMARY | 2023-08-08 11:07 | XMS_ITS | Encounter Summary ---
Author Organization [facility] Address [address] [place] [address] Care Team Providers Care Marketing Systems Manager Name Role Phone Elsewhere, Pcp Primary Care Provider Unavailabl e Encounter Details Date Type Department Care Team (Late st Contact Info) Description 03/11/2002 Historical Ophthalmology RST OPH Carlos Zendejas M.D. [address] [place] [address] Social History Tobacco Use Types Packs/Day Years Used Date Smoking Tobacco: Never Assessed Sex and Gender Information Value Date Recorded Sex Assigned at Female 01/25/2022 2:30 PM OPHTHALMOLOGY ASSISTANT Gender Identity Female 01/25/2022 2:30 PM OPHTHALMOLOGY ASSISTANT Sexual Orientation Straight 01/25/2022 2: 30 PM OPHTHALMOLOGY ASSISTANT documented as of this encounter Progress Notes [...] rechek prn CDM Reports - EYEGEN Id: [id number] Status: Fnl documented in this encounter Plan of Treatment Not on file documented as of this encounter Visit Diagnoses Not on filedocumented in this encounter Additional Health Concerns Infection Onset Date Last Indicated Resolved Time COVID19 Pending 12/17/2020 12/17/2020 01/06/2021 4 :54 AM OPHTHALMOLOGY ASSISTANT documented as of this encounter Care Teams Marketing Systems Manager Relationship Specialty Start Date End Date Elsewhere, Pcp PCP - General Family Medicine 12/19/20 documented as of this encounter
--- OUTSIDE RECORDS SUMMARY | 2023-08-08 11:07 | XMS_ITS | Encounter Summary ---
Author Organization [facility] Address [address] [place] [address] Care Team Providers Care Engineering Group Manager Name Role Phone Elsewhere, Pcp Primary Care Provider Unavailabl e Encounter Details Date Type Department Care Team (Late st Contact Info) Description 01/07/2004 Historical Ophthalmology RST OPH Esequiel Reyes M.D. Social History Tobacco Use Types Packs/Day Years Used Date Smoking Tobacco: Never Assessed Sex and Gender Information Value Date Recorded Sex Assigned at Female 01/25/2022 2:30 PM CAREER SERVICES OFFICER Gender Identity Female 01/25/2022 2:30 PM CAREER SERVICES OFFICER Sexual Orientation Straight 01/25/2022 2: 30 PM CAREER SERVICES OFFICER documented as of this encounter Progress [...] #4 Photophobia CDM Reports - EYEGEN Id: [id number] Status: Fnl documented in this encounter Plan of Treatment Not on file documented as of this encounter Visit Diagnoses Not on filedocumented in this encounter Additional Health Concerns Infection Onset Date Last Indicated Resolved Time COVID19 Pending 12/17/2020 12/17/2020 01/06/2021 4 :54 AM CAREER SERVICES OFFICER documented as of this encounter Care Teams Engineering Group Manager Relationship Specialty Start Date End Date Elsewhere, Pcp PCP - General Family Medicine 12/19/20 documented as of this encounter
--- OUTSIDE RECORDS SUMMARY | 2023-08-08 11:07 | XMS_ITS | Encounter Summary ---
Author Organization [facility] Address [address] [place] [address] Care Team Providers Care Merchandise Team Manager Name Role Phone Elsewhere, Pcp Primary Care Provider Unavailabl e Encounter Details Date Type Department Care Team (Late st Contact Info) Description 02/16/2004 Historical Ophthalmology [facility] Roddy Palmer M.D. [address] [place] [phone] Social History Tobacco Use Types Packs/Day Years Used Date Smoking Tobacco: Never Assessed Sex and Gender Information Value Date Recorded Sex Assigned at Female 01/25/2022 2:30 PM SENIOR COGNOS DEVELOPER Gender Identity Female 01/25/2022 2:30 PM SENIOR COGNOS DEVELOPER Sexual Orientation Straight 01/25/2022 2: 30 PM SENIOR COGNOS DEVELOPER documented as of this encounter Progress [...] #3 Pars planitis L CDM Reports - [facility] Id: [id number] Status: Fnl documented in this encounter Plan of Treatment Not on file documented as of this encounter Visit Diagnoses Not on filedocumented in this encounter Additional Health Concerns Infection Onset Date Last Indicated Resolved Time COVID19 Pending 12/17/2020 12/17/2020 01/06/2021 4 :54 AM SENIOR COGNOS DEVELOPER documented as of this encounter Care Teams Merchandise Team Manager Relationship Specialty Start Date End Date Elsewhere, Pcp PCP - General Family Medicine 12/19/20 documented as of this encounter
--- OUTSIDE RECORDS SUMMARY | 2023-08-08 11:07 | XMS_ITS | Encounter Summary ---
Author Organization [facility] Address [address] [place] [address] Care Team Providers Care Picking Table Worker Name Role Phone Elsewhere, Pcp Primary Care Provider Unavailabl e Encounter Details Date Type Department Care Team (Late st Contact Info) Description 01/22/2004 Historical Ophthalmology [facility] Roddy Palmer M.D. [address] [place] [phone] Social History Tobacco Use Types Packs/Day Years Used Date Smoking Tobacco: Never Assessed Sex and Gender Information Value Date Recorded Sex Assigned at Female 01/25/2022 2:30 PM WARD ASSISTANT Gender Identity Female 01/25/2022 2:30 PM WARD ASSISTANT Sexual Orientation Straight 01/25/2022 2: 30 PM WARD ASSISTANT documented as of this encounter Progress [...] from a refration. Will continue prednisolone at [place], recheck 3 weeks with refraction. DIAGNOSIS #1 Episcleritis, scleritis #2 Optic atrophy R #3 Pars planitis L CDM Reports - [facility] Id: [id number] Status: Fnl documented in this encounter Plan of Treatment Not on file documented as of this encounter Visit Diagnoses Not on filedocumented in this encounter Additional Health Concerns Infection Onset Date Last Indicated Resolved Time COVID19 Pending 12/17/2020 12/17/2020 01/06/2021 4 :54 AM WARD ASSISTANT documented as of this encounter Care Teams Picking Table Worker Relationship Specialty Start Date End Date Elsewhere, Pcp PCP - General Family Medicine 12/19/20 documented as of this encounter
--- OUTSIDE RECORDS SUMMARY | 2023-08-08 11:07 | XMS_ITS | Clinical Summary ---
Author Organization [employer] [facility] Address [place], [place] [address] Care Team Providers Care [employer] Commerce Developer Name Role Phone Laurence Mujica Primary Care Provider [phone] Yumiko Garcia [facility] Unavailable Unavailable Nga White MD Unavailable [phone] [facility] [place] Unavailable [facility] [place] Unavailable Allergies Active Allergy Reactions Criticality Noted [...] High 07/23/2007 Morphine Chest Pain,Palpitations 11/20/2012 Tolerated [place] 04/21/2014 And chest pains Mushroom Anaphylaxis High [...] Date End Date Status miscellaneous medical supply miscIndications:Ne urogenic urinary bladder disorder,Multiple sclerosis (HC) As directed. 14 Norwegian straight cath for self cath up to 7 times/daily 200 Each 11/05/19 19 Active miscellaneous medical supply miscIndications:Rh eumatoid arthritis involving multiple sites, unspecified rheumatoid factor presence,Systemic lupus erythematosus, unspecified SLE type, unspecified organ involvement status (HC),Multiple sclerosis (HC) As directed. Mattress pad for pain management 1 Each 03/21/19 20 Active dimethyl fumarate (TECFIDERA) [address] capsule Take 240 mg by mouth 2 times daily. Active lancets (Accu-Chek Softclix Lancets) Use as directed to test blood sugar levels twice a day. 100 Each 06/30/19 21 Active cycloSPORINE (RESTASIS) 0.05 % ophthalmic emulsion Place 1 Drop into both eyes 2 times daily if needed. Active hospital bedIndications:Mul tiple sclerosis (HC),Bilateral arm weakness,Leg weakness, bilateral Hospital bed with mattress and full rails. Semi-electric bed. Length of need 99 months. Bed kiln burner:no 1 Each 10/04/19 22 Active Gauze Bandage 4 X 4 spgeIndications:Ne urogenic urinary bladder disorder Apply topically to affected area(s). 25 Each 2 12/20/19 22 Active durable medical equipment (DME)Indications:N eurogenic urinary bladder disorder Merit Drainage [place] 1 Each 1 12/20/19 22 Active miscellaneous medical supply miscIndications:Fung prapubic catheter (HC) As directed. Exam Gloves for suprapubic catheter cares 2 unit 4 02/27/19 Active alcohol swabsIndications:S uprapubic catheter (HC) For home use. 100 Each 4 02/27/19 Active Diabetic ShoeIndications:Ty pe 2 diabetes mellitus with hypoglycemia without coma, without long-term current use of insulin (HC) As directed. Pair of diabetic shoes 2 Each 03/21/19 Active Chair LiftIndications:Mu ltiple sclerosis (HC) For home use. Recliner that is a chair lift. 1 Each 03/23/19 Active amantadine HCL (SYMMETREL) 100 mg capsule Take 100 mg by mouth two times daily. 03/30/19 Active Shower BenchIndications:M ultiple sclerosis (HC) For home use. Length of need: 99 1 Each 06/07/19 Active Gauze Bandage 4 X 4 spgeIndications:Fung prapubic catheter (HC) Apply topically to affected area(s). Split Drain Sponge 50 Each 06/16/19 Active Adhesive Tape (Medipore H) 3 X 10 -yard tapeIndications:Ne urogenic urinary bladder disorder Apply topically to affected area(s). 1 Each 06/16/19 Active oxybutynin XL (Ditropan XL) 10 mg CR tabletIndications: Overactive bladder Take 1 Tablet (10 mg) by mouth once daily. 90 Tablet 3 08/29/19 Active EPINEPHrine (EpiPen) 0.3 mg/0.3 mL auto-injectorIndic ations:Allergy to bee sting,Food allergy Inject 0.3 mg intramuscular one time if needed for Allergic Reaction. 2 Each 08/29/19 Active omeprazole (PRILOSEC) 40 mg Delayed-Release capsuleIndications :Hot flashes due to menopause Take 1 Capsule (40 mg) by mouth once daily before a meal. 90 Capsule 08/29/19 Active Diaper,Brief, Adult,DisposableIn dications:Multiple sclerosis (HC),Neurogenic urinary bladder disorder For home use. 120 Each 08/29/19 Active famotidine (PEPCID) 40 mg tabletIndications: Chronic GERD TAKE 1 TABLET (40 MG) BY MOUTH ONCE DAILY. 90 Tablet 3 10/03/19 Active atorvastatin (LIPITOR) 20 mg tabletIndications: Insulin dependent type 2 diabetes mellitus (HC),Mixed hyperlipidemia Take 1 Tablet (20 mg) by mouth at bedtime. 90 Tablet 3 12/03/19 23 Active cetirizine (ZYRTEC) 10 mg tabletIndications: Seasonal allergic rhinitis due to pollen Take 1 Tablet (10 mg) by mouth once daily. 90 Tablet 3 12/03/19 23 Active levothyroxine (SYNTHROID) 75 mcg tabletIndications: Hypothyroidism, unspecified type Take 1 Tablet (75 mcg) by mouth before breakfast. 90 Tablet 3 12/03/19 23 Active Gauze Bandage 3 X 4 spgeIndications:Fung prapubic catheter (HC) Apply topically to affected area(s). 30 Each 12/18/19 23 Active blood sugar diagnostic (Accu-Chek Guide test strips) stripIndications:I nsulin dependent type 2 diabetes mellitus (HC) USE TO TEST BLOOD SUGAR TWO TIMES A DAY 200 Each 3 01/05/20 23 Active Milk of Magnesia 400 mg/5 mL suspensionIndicati ons:Constipation, unspecified constipation type Take 30 mL by mouth once daily if needed for Constipation (use first). 02/23/19 24 Active albuterol HFA (PRO-AIR; VENTOLIN; PROVENTIL) 90 mcg/actuation inhalerIndications :COPD mixed type (HC) Inhale 2 Puffs by mouth every 4 hours if needed for Shortness Of Breath or Wheezing. 02/23/19 24 Active dulaglutide (TRULICITY) 0.75 mg/0.5 mL subcutaneous penIndications:Typ e 2 diabetes mellitus without complication, without long-term current use of insulin (HC) Inject 0.75 mg subcutaneous once weekly. 6 mL 1 03/27/19 24 Active valACYclovir (VALTREX) 500 mg tabletIndications: Herpes simplex TAKE 1 TABLET (500 MG) BY MOUTH ONCE DAILY. 90 Tablet 2 04/22/19 24 Active ARIPiprazole (Abilify) 30 mg tablet Take 30 mg by mouth at bedtime. Active ondansetron (ZOFRAN ODT) 4 mg disintegrating tabletIndications: S/P bilateral breast reduction Place 1 Tablet (4 mg) on the tongue every 8 hours if needed for Nausea/Vomiting (May take every 4-6 hours.). 10 Tablet 05/09/19 24 Active hydrOXYzine pamoate (VISTARIL) 25 mg capsuleIndications :S/P bilateral breast reduction Take 1 Capsule (25 mg) by mouth 4 times daily if needed (May take with narcotic for itching, nausea.). 40 Capsule 05/09/19 24 Active eszopiclone (LUNESTA) 1 mg tablet Take 1 mg by mouth at bedtime. Take along with 3 mg for total nightly dose of 4 mg Active DULoxetine (CYMBALTA) 60 mg Delayed-release capsule Take 120 mg by mouth once daily. 05/28/19 24 Active eszopiclone (LUNESTA) 3 mg tablet Take 3 mg by mouth at bedtime. Take along with 1 mg for total nightly dose of 4 mg. Active polyethylene glycoL (Miralax) 17 gram/scoop powder Mix 17 g in liquid then take by mouth once daily if needed for Constipation. Active sennosides-docusat e (Senokot-S) (8.6-50 mg) tablet Take 1-2 Tablets by mouth once daily if needed for Constipation. Active methocarbamoL (ROBAXIN) 500 mg tabletIndications: Muscle spasm Take 1 Tablet (500 mg) by mouth every 6 hours if needed for Muscle Spasm. 60 Tablet 1 07/09/19 24 Active ketoconazole 2% topical (NIZORAL) creamIndications:C andidal intertrigo Use once daily as needed for groin rash 60 g 1 07/09/19 24 Active sennosides (SENNA) 8.6 mg tabletIndications: Chronic constipation Take 1 Tablet (8.6 mg) by mouth 2 times daily if needed for Constipation. 60 Tablet 1 07/09/19 24 Active cariprazine (Vraylar) 3 mg capsuleIndications :depression associated with bipolar disorder Take 3 mg by mouth once daily. Indications: bipolar depression 08/02/19 24 Active linaCLOtide (Linzess) 72 mcg cap capsuleIndications :Slow transit constipation TAKE 1 CAPSULE (72 MCG) BY MOUTH BEFORE BREAKFAST. 90 Capsule 3 07/31/19 24 Active HYDROmorphone (DILAUDID) 2 mg tablet Take 2 mg by mouth every 4 hours. Take 1 tablet (2 mg) by mouth every 4 hours for pain. 07/31/19 24 Active HYDROmorphone (DILAUDID) 2 mg tablet Take 2 mg by mouth 2 times daily if needed. Take 1 tablet (2 mg) by mouth two times a day as needed for breakthrough pain. 07/31/19 24 Active continuous glucose monitor READER (FreeStyle Keegan 2 [place])Indications :diabetes mellitus [The details of the medication are not available because there are pending changes by a home health clinician.] 1 Each 10/20/19 22 024 Discontinued(*M ed complete/Regime n complete/Level of care change) linaCLOtide (LINZESS) 72 mcg cap capsuleIndications :Slow transit constipation Take 72 mcg by mouth once daily if needed (constipation). 04/23/19 23 024 Discontinued continuous glucose monitor SENSOR KIT (FreeStyle Keegan 2 Sensor)Indications :diabetes mellitus [The details of the medication are not available because there are pending changes by a home health clinician.] 6 Each 03/27/19 24 024 Discontinued(*M ed complete/Regime n complete/Level of care change) oxyCODONE (ROXICODONE) 5 mg immediate release tablet Take 20 mg by mouth two times daily. May take additional 20 mg dose as needed for severe pain 024 Discontinued(*D iscontinued by another clinician) ciprofloxacin HCl (CIPRO) 500 mg tabletIndications: Left breast abscess Take 1 Tablet (500 mg) by mouth two times daily for 14 days. 28 Tablet 07/09/19 24 024 cariprazine (Vraylar) 1.5 mg capsuleIndications :depression associated with bipolar disorder Take 1.5 mg by mouth once daily. Increase to 3 mg after one week Indications: bipolar depression 07/25/19 24 024 Active Problems Problem Noted Date Diagnosed Date [...] loss in right eye. Was seen at [facility] by neurology and rheumatology, apparently had characteristic MRI with demyelinating lesions but numerous lumbar punctures have not demonstrated CSF protein abnormalities. Has been seen at [facility] neurology clinic. Currently following with Dr. Shepherd at [facility]. Started on Tysabri (monoclonal baldo) infusions in 2007. Continues to have progressive symptoms. 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 12/06/15--Neurologist is Dr. Ab Whittington- location [facility] ext [phone]. Currently [...] 02/25/2021 02/25/2021 Overview: Overview: Created by Conversion [facility] Annotation: May 09 2011 2:19PM - [...] Encounters Date Type Department Care Team Description 08/07/2023 Home Care Visit [facility] [address] [place] [address] Luisa Velasquez, CALLUM SN - TELEHEALTH VISIT 08/06/2023 1:30 PM CDT Home Care Visit [facility] [address] [place] [phone] Socorro Barajas LPN [facility]ER - HOME VISIT 08/04/2023 Home Care Visit [facility] [address] [place] [phone] Luisa Velasquez, CALLUM SN - MISSED VISIT 08/03/2023 12:40 PM CDT - 08/03/2023 3:[address] [facility] [address] [place] [address] Lane Barahona PA Open wound of left chest wall, subsequent encounter (Primary Dx); Chronic suprapubic catheter (HC) Discharge Disposition: Home Self Care 08/03/2023 Home Care Visit [facility] [address] [place] [phone] Denisse Cueto LISW REFRIGERATION TECH - CASE COMMUNICATION 08/03/2023 Orders Only [facility] [address] [place] [address] Laurence Mujica PA <No scans attached> 08/03/2023 Travel 08/03/2023 Home Care Visit [facility] [address] [place] [phone] Luisa Velasquez, RN CARE COORDINATION 08/02/2023 4:30 PM CDT Home Care Visit [facility] [address] [place] [address] Josi Sosa, RN SN - PRN HOME VISIT 08/02/2023 10:30 AM CDT - 08/02/2023 11:59 PM CDT Hospital Encounter [facility] [address] [place] [address] Left breast abscess 08/02/2023 Telephone [facility] [address] [place] [address] Josi Sosa, director of aviation (Patient sent to ED.) 08/02/2023 Home Care Visit [facility] [address] [place] [phone] Luisa Velasquez RN CARE COORDINATION 08/02/2023 Travel 08/01/2023 Home Care Visit [facility] [address] [place] [phone] Luisa Velasquez RN SN - TELEHEALTH VISIT 07/30/2023 3:30 PM CDT Home Care Visit [facility] [address] [place] [phone] Josi Sosa RN SN - HOME VISIT 07/30/2023 Home Care Visit [facility] [address] [place] [phone] Luisa Velasquez RN CARE COORDINATION 07/28/2023 Refill [facility] [address] [place] [address] Laurence Mujica PA Refill Request (eMy) 07/27/2023 1:00 PM CDT Home Care Visit [facility] [address] [place] [phone] Ivette Martinez, CALLUM SN - HOME VISIT 07/27/2023 Home Care Visit [facility] [address] [place] [phone] Luisa Velasquez, RN CARE COORDINATION 07/27/2023 Telephone [facility] [address] [place] [address] Luisa Velasquez, director of aviation 07/26/2023 Telephone [facility] [address] [place] [address] Laurence Mujica PA Questions (Catheter ) 07/26/2023 Home Care Visit [facility] [address] [place] [phone] Luisa Velasquez, CALLUM CARE COORDINATION 07/23/2023 12:00 PM CDT Home Care Visit [facility] [address] [place] [phone] Radha Bob, CALLUM SN - LONG VISIT (>90 MINUTES) 07/23/2023 Home Care Visit [facility] [address] [place] [phone] Luisa Velasquez, CALLUM CARE COORDINATION 07/20/2023 12:00 PM CDT Home Care Visit [facility] [address] [place] [phone] Socorro Barajas LPN [facility] - HOME VISIT 07/19/2023 Telephone [facility] [address] [place] [address] Socorro Barajas LPN Breast Problem (Wound on (L) breast) 07/16/2023 12:00 PM CDT Home Care Visit [facility] [address] [place] [phone] Socorro Barajas LPN [facility] - HOME VISIT 07/13/2023 1:00 PM CDT Home Care Visit [facility] [address] [place] [phone] Orlando Escobar, RN SN - WOUND HOME VISIT 07/12/2023 Transcribe Orders [address] [place] [address] Sole Noel MD 07/09/2023 12:50 PM CDT Office Visit [facility] [address] [facility] [place] [address] Laurence Mujica PA Derm Problem (Check breast-has a 'hole with yellow drainage'-also needs cream for stomach) 07/09/2023 9:00 AM CDT Home Care Visit [facility] [address] [place] [address] Radha Bob, RN SN - HOME VISIT 07/09/2023 Orders Only [facility] [address] [place] [address] Laurence Mujica PA <No scans attached> 07/08/2023 Travel 07/07/2023 10:30 AM CDT Home Care Visit [facility] [address] [place] [phone] Radha Bob, RN SN - LONG VISIT (>90 MINUTES) 07/06/2023 1:00 PM CDT Home Care Visit [facility] [address] [place] [phone] Ivette Martinez, CALLUM SN - WOUND HOME VISIT 07/06/2023 Home Care Visit [facility] [address] [place] [phone] Maria Victoria Mcintosh, PT PT - DISCIPLINE DISCHARGE 07/06/2023 Orders Only [facility] [address] [place] [address] Laurence Mujica PA <No scans attached> 07/06/2023 Home Care Visit [facility] [address] [place] [phone] Maria Victoria Mcintosh, PT CARE COORDINATION 07/05/2023 Home Care Visit [facility] [address] [place] [phone] Maria Victoria Mcintosh, PT PT - MISSED VISIT 07/04/2023 8:00 AM CDT Home Care Visit [facility] [address] [facility] [place] [address] Orlando Escobar, RN SN - OASIS RECERTIFICATION 07/04/2023 Plan of Care Documentation [facility] [address] [place] [address] 07/03/2023 12:00 PM CDT Home Care Visit [facility] [address] [place] [phone] Luisa Burnett, PT PT - HOME VISIT 07/02/2023 8:30 AM CDT Home Care Visit [facility] [address] [place] [phone] Radha Bob, RN SN - WOUND HOME VISIT 07/01/2023 8:30 AM CDT Home Care Visit [facility] [address] [place] [phone] Radha Bob RN SN - WOUND HOME VISIT 06/30/2023 12:00 PM CDT Home Care Visit [facility] [address] [place] [phone] Radha Bob, RN SN - WOUND HOME VISIT 06/29/2023 9:00 AM CDT Home Care Visit [facility] [address] [place] [phone] Orlando Escobar, RN SN - WOUND HOME VISIT 06/28/2023 10:15 AM CDT Home Care Visit [facility] [address] [place] [phone] Luisa Burnett, PT PT - WOUND HOME VISIT 06/28/[address] [address] Luisa Burnett, PT Home Care 06/27/2023 12:30 PM CDT Home Care Visit [facility] [address] [place] [phone] Orlando Escobar, RN SN - WOUND HOME VISIT 06/26/2023 10:15 AM CDT Home Care Visit [facility] [address] [place] [address] Luisa Burnett, PT PT - WOUND HOME VISIT 06/25/2023 10:30 AM CDT Home Care Visit [facility] [address] [place] [address] Orlando Escobar, RN SN - WOUND HOME VISIT 06/24/2023 11:00 AM CDT Home Care Visit [facility] [address] [place] [address] Radha Bob RN SN - HOME VISIT 06/23/2023 10:30 AM CDT Home Care Visit [facility] [address] [place] [address] Radha Bob RN SN - HOME VISIT 06/22/2023 10:30 AM CDT Home Care Visit [facility] [address] [place] [phone] Orlando Escobar RN SN - WOUND HOME VISIT 06/21/2023 11:30 AM CDT Office Visit [facility] [address] [facility] [address] [place] [address] Tata Cruz PA Surgical Followup (Check open wound on her left breast S/P Bilateral Breast Reduction with free nipple graft on 05/09/23 with Yazmin) 06/21/2023 10:30 AM CDT Home Care Visit [facility] [address] [place] [address] Luisa Burnett, PT PT - MISSED VISIT 06/21/2023 Travel 06/21/2023 Telephone [facility] [address] [phone] Yazmin, Alfredo Mo MD Post-op Pain/problem (Wound on left breast) 06/20/2023 12:00 PM CDT Home Care Visit [facility] [address] [place] [phone] Orlando Escobar, RN SN - WOUND HOME VISIT 06/20/2023 4:00 AM CDT Home Care Visit [facility] [address] [place] [phone] Laurence Clemons RN SN - WOUND/OSTOMY CHART CONSULT 06/20/2023 Travel 06/20/2023 Telephone [facility] [address] [place] [address] Laurence Clemons RN Home Care (Wound care plan - requesting wound vac) 06/19/2023 1:30 PM CDT Home Care Visit [facility] [address] [place] [phone] Luisa Burnett, PT PT - MISSED VISIT 06/19/2023 10:48 AM CDT - 06/19/2023 2:[address] [facility] [address] [place] [address] Alison Elmore NP Breast abscess (Primary Dx); Cellulitis, unspecified cellulitis site; Wound dehiscence Discharge Disposition: Home Self Care 06/19/2023 Telephone [facility] [address] [phone] Alfredo Arce MD Appointment Reminder; Appointment Request 06/19/2023 Travel 06/19/2023 Nurse Triage [facility] [address] [place] [address] Laurence Mujica PA Home Care (Pain ) 06/19/2023 Nurse Triage [facility] [address] [place] [address] Laurence Mujica PA Pain In Breast 06/18/2023 5:00 PM CDT Home Care Visit [facility] [address] [place] [phone] Radha Bob, RN SN - WOUND HOME VISIT 06/18/2023 Home Care Visit [facility] [address] [facility] [place] [address] Radha Bob, RN CARE COORDINATION 06/17/2023 8:00 AM CDT Home Care Visit [facility] [address] [facility] [place] [address] Radha Bob, RN SN - WOUND HOME VISIT 06/16/2023 3:30 PM CDT Home Care Visit [facility] [address] [facility] [place] [address] Radha Bob, RN SN - WOUND HOME VISIT 06/15/2023 1:15 PM CDT Home Care Visit [facility] [address] [place] [address], [place] [address] Socorro Barajas LPN [facility] - HOME VISIT 06/14/2023 12:30 PM CDT Home Care Visit [facility] [address] [facility] [place] [address] Orlando Escobar RN SN - HOME VISIT 06/14/2023 10:30 AM CDT Home Care Visit [facility] [address] [place] [address], [place] [address] Luisa Burnett, PT PT - HOME VISIT 06/13/2023 12:30 PM CDT Home Care Visit [facility] [address] [place] [address], [place] [address] Socorro Barajas LPN [facility] - MISSED VISIT 06/13/2023 Home Care Visit [facility] [address] [place] [address], [place] [phone] Orlando Escobar, RN CARE COORDINATION 06/12/2023 9:00 AM CDT Home Care Visit [facility] [address] [place] [address], [place] [phone] Luisa Burnett, PT PT - HOME VISIT 06/12/2023 Home Care Visit [facility] [address] [place] [phone] Orlando Escobar, RN SN - MISSED VISIT 06/12/2023 Telephone [facility] [address] [place] [address] Laurence Mujica PA Form (Jury Duty) 06/11/2023 4:00 PM CDT Home Care Visit [facility] [address] [place] [phone] Radha Bob RN SN - WOUND HOME VISIT 06/11/2023 Telephone [facility] [address] [place] [address] Laurence Mujica PA Letter 06/10/2023 9:00 AM CDT Home Care Visit [facility] [address] [place] [phone] Orlando Escobar, RN SN - WOUND HOME VISIT 06/09/2023 9:00 AM CDT Home Care Visit [facility] [address] [place] [phone] Orlando Escobar, RN SN - WOUND HOME VISIT 06/08/2023 1:30 PM CDT Home Care Visit [facility] [address] [place] [phone] Laurence Clemons RN SN - WOUND/OSTOMY CHART CONSULT 06/08/2023 12:00 PM CDT Home Care Visit [facility] [address] [place] [phone] Orlando Escobar, RN SN - INITIAL ASSESSMENT 06/07/2023 4:00 PM CDT Home Care Visit [facility] [address] [place] [phone] Luisa Burnett, PT PT - OASIS RESUMPTION OF CARE 06/07/[address] [address] Luisa Burnett, PT Home Care 06/07/2023 Telephone [facility] [address] [place] [address] Luisa Burnett, PT Home Care 06/06/2023 Patient Outreach [facility] [address] [place] [address] Felicita Dickinson RN Primary RN Care Management; Hospital F/U (LACE 80) 06/05/2023 Travel 06/04/2023 Travel 06/04/2023 Telephone [facility] [address] [phone] Alfredo Arce MD Surgical Followup (Wound under left breast/S/p: Bilateral Breast Reduction/DOS: 05/09/2023/Surgeon: Alfredo Arce//) 06/03/2023 Home Care Visit [facility] [address] [place] [phone] Luisa Burnett, PT PT - OASIS TRANSFER 06/01/2023 8:28 PM CDT - 06/05/2023 12:30 PM CDT Hospital Encounter [facility] [address] [place] [address] Lane Barahona, Rory Bonner, DO Dang, Sarah Guidry, Kathy Bautista, Bi Sidhu DO Sepsis, due [...] 05/30/2023 12:00 PM CDT Home Care Visit [facility] [address] [place] [phone] Luisa Burnett, PT PT - HOME VISIT 05/30/2023 Refill [facility] [address] [place] [address] Laurence Mujica PA Refill Request (Ondansetron) 05/28/2023 12:30 PM CDT Home Care Visit [facility] [address] [place] [address] Josi Tolentino RN SN - HOME VISIT 05/28/2023 8:56 AM CDT - 05/28/2023 11:[address] [facility] [address] [place] [address] Darryl Hardy MD Postoperative hematoma of skin following non-dermatologic procedure (Primary Dx) Discharge Disposition: Home Self Care 05/28/2023 Travel 05/25/2023 Nurse Triage [facility] [address] [facility] [address] [place] [phone] Alfredo Arce MD Post-op 05/23/2023 12:00 PM CDT Home Care Visit [facility] [address] [place] [address] Luisa Burnett, PT PT - HOME VISIT 05/22/2023 1:00 PM CDT Home Care Visit [facility] [address] [place] [address] Josi Tolentino RN SN - HOME VISIT 05/21/2023 1:00 PM CDT Office Visit [facility] [address] [facility] [address] [place] [address] Alfredo Arce MD Surgical Followup (Bilateral Breast Reduction with free nipple graft, DOS: 05/09/23, w/ Dr. Arce) 05/21/2023 3:00 AM CDT Home Care Visit [facility] [address] [place] [address] Luisa Burnett, PT PT - MISSED VISIT 05/21/2023 Travel 05/17/2023 11:00 AM CDT Home [facility] [address] [place] [address] Socorro Barajas LPN FOURCHETTE SEWER - HOME VISIT 05/17/2023 3:00 AM CDT Home Care Visit [facility] [address] [place] [phone] Luisa Burnett, PT PT - MISSED VISIT 05/17/2023 Travel 05/17/2023 Telephone [facility] [address] [phone] Alfredo Arce MD Hospital F/U (Sutures/itchiness. ) 05/16/2023 1:15 PM CDT Home Care Visit [facility] [address] [place] [phone] Luisa Burnett, PT PT - MISSED VISIT 05/14/2023 10:30 AM CDT Home Care Visit [facility] [address] [place] [phone] Josi Tolentino, RN SN - INITIAL ASSESSMENT 05/14/2023 Home Care Visit [facility] [address] [place] [phone] Josi Tolentino, RN CARE COORDINATION 05/14/[address] [phone] Laurence Mujica PA Home Care (home care orders needed) 05/10/2023 1:00 PM CDT Nurse/Clinic Staff Only [facility] [address] [phone] Surgical Followup (Post-operative call/DOS: 05/09/2023/Surgeon: Alfredo Arce) 05/10/2023 Travel 05/09/2023 9:50 AM CDT - 05/09/2023 11:40 AM CDT Surgery [place] [id number] [facility] [place] [address] Alfredo Arce MD Bilateral Breast Reduction with free nipple graft 05/09/2023 9:50 AM CDT Anesthesia Event [facility] [place] [address] Alfredo Villa MD Hestness, Henok Hameed MD 05/09/2023 8:21 AM CDT - 05/09/2023 1:12 PM CDT Hospital Encounter [facility] [place] [address] Alfredo Arce MD S/P bilateral breast reduction (Primary Dx) Discharge Disposition: Home Self Care 05/09/2023 Travel from Last 3 Months Immunizations Name Administration Dates Next Due COVID-19 vaccine ([employer] 30mcg/0.3mL) 12YO+ BIVALENT PF, MDV 11/24/2021 [...] Given: Not Answered Comments:5-6 cigs per day 9/21/21/has patch Alcohol Use Standard Drinks/Week Comments Never [...] Sign Reading Time Taken Comments Blood Pressure 110/62 08/06/2023 1:02 PM CDT Pulse 60 08/06/2023 1:02 PM CDT Temperature 36.3 ??C (97.3 ??F) 08/06/2023 1:02 PM CD T Respiratory Rate 16 08/06/2023 1:02 PM CDT Oxygen Saturation 99% 08/06/2023 1:02 PM CDT Inhaled Oxygen Concentration - - Weight 85.4 kg (188 lb 4.8 oz) 08/03/2023 12:48 PM CDT Height 172.7 cm (5' 8) 08/03/2023 12:48 PM CDT Body Mass Index 28.63 08/03/2023 12:48 PM CDT Plan of Treatment Upcoming Encounters Date Type Department Care Team (Late st Contact Info) Description 08/10/2023 4:00 AM CDT Home Care Visit [facility] [address] [place] [phone] 08/13/2023 4:00 AM CDT Home Care Visit [facility] [address] [place] [phone] Josi Sosa, RN 08/16/2023 10:30 AM CDT Nurse/Clinic Staff Only [address] [place] [address] 08/16/2023 11:00 AM CDT Office Visit [address] [phone] Nga White MD [address] [place] [phone] 08/17/2023 4:00 AM CDT Home Care Visit [facility] [address] [place] [address] Josi Sosa, RN 08/20/2023 4:00 AM CDT Home Care Visit [facility] [address] [place] [address] 08/24/2023 4:00 AM CDT Home Care Visit [facility] [address] [place] [address] 08/27/2023 4:00 AM CDT Home Care Visit [facility] [address] [place] [phone] 08/31/2023 4:00 AM CDT Home Care Visit [facility] [address] [place] [phone] Health Maintenance Due Date Last Done Comments Pneumococcal series for age 6-64 (1 of 2 - PCV) 1981 Hepatitis B series for Diabe mahad (1 of 3 - 19+ 3-dose series) 1994 Colonoscopy through age 75 01/25/2020 Tetanus booster 05/30/2021 05/31/2011, 06/11/1991 COVID-19 vaccine series ( season) 2022 11/24/2021, 12/15/2020, 09/27/2020 Mammogram for [...] Procedure Name Priority Date/Time Associated Diagnosis Comments SUPRAPUBIC TUBE PLACEMENT Routine 08/03/2023 2:46 PM CDT URINALYSIS MICROSCOPIC STAT 08/03/2023 2:23 PM CDT UA W/ SEDIMENT EXAM REFLEXED PER CRITERIA STAT 08/03/2023 2:23 PM CDT BLOOD CULTURE STAT 08/03/2023 1:25 PM CDT CBC WITH AUTO DIFFERENTIAL STAT 08/03/2023 1:17 PM CDT PROTIME-INR STAT 08/03/2023 1:17 PM CDT COMP METABOLIC PANEL STAT 08/03/2023 1:17 PM CDT BLOOD CULTURE STAT 08/03/2023 1:17 PM CDT CBC WITH AUTO DIFFERENTIAL STAT 08/03/2023 1:17 PM CDT LACTATE VENOUS STAT 08/03/2023 1:17 PM CDT XR CHEST 1 VIEW PORTABLE STAT 08/03/2023 1:03 PM CDT US BREAST UNILATERAL LEFT LIMITED MALOU 08/02/2023 11:31 AM CDT Left breast abscess CT CHEST ABDOMEN PELVIS W STAT 06/19/2023 [...] CDT SCAN-CARDIAC STRIP 05/09/2023 12:00 AM CDT LIPID PANEL W REFLEX MEASURED LDL Routine [...] Recently Relevant to Health Maintenance Results * SUPRAPUBIC TUBE PLACEMENT (08/03/2023 2:46 PM CDT) Narrative Lane Barahona PA - 08/03/2023 2:[address] Barahona PA ? 08/04/2023 12:15 AM SUPRAPUBIC TUBE PLACEMENT Date/Time: 08/03/2023 2:46 PM Performed by: Lane Barahona PA Authorized by: Lane Barahona PA ?? Consent: ??Consent obtained: ??Verbal ??Consent given by: ??Patient ??Risks, benefits, and alternatives were discussed: yes ?Risks discussed: ??Pain and infection ??Alternatives discussed: ??No treatment [place] protocol: ??Procedure explained and questions answered to patient or proxy's satisfaction: yes ?Required blood products, implants, devices, and special equipment available: yes ?Patient identity confirmed: ??Arm band Sedation: ??Sedation type: ??None Anesthesia: ??Anesthesia method: ??Topical application ??Topical anesthetic: ??Lidocaine gel Procedure details: ??Complexity: ??Simple ??Catheter type: ??Peng ??Catheter size: ??16 Fr ??Ultrasound guidance: no ?Number of attempts: ??1 ??Urine characteristics: ??Clear Post-procedure details: ??Procedure completion: ??Tolerated well, no immediate complications Lane [facility]ERUM[facility] [address]URE O [address] * URINALYSIS MICROSCOPIC (08/03/2023 2:23 PM CDT) Only the most recent of2 resultswithin the time period is included. RBC None Seen 0-2, None Seen /HPF 08/03/2023 2:33 PM [facility] WBC 0-2 0-2, 3-5, None Seen /HPF 08/03/2023 2:33 PM [facility] BACTERIA Rare None Seen, Rare, Few Bacteria/ HPF 08/03/2023 2:33 PM [facility] EPITHELIAL CELLS Few None Seen, Few Epi/HPF 08/03/2023 2:33 PM [facility] Urine URINE SPECIMEN / Unknown Non-Blood / Unknown 08/03/2023 2:23 PM CDT 08/03/2023 2:[address] [facility] URINE [facility] [address] [facility] [place] [address] * (ABNORMAL) URINALYSIS W REFLEX MICROSCOPIC IF POSITIVE (08/03/2023 2:23 PM CDT) Only the most recent of2 resultswithin the time period is included. COLOR Yellow Yellow Color 08/03/2023 2:30 PM T [facility] CLARITY Clear Clear Clarity 08/03/2023 2:30 PM [facility] SPECIFIC GRAVITY,URINE <=1.005(A) 1.010, 1.015, 1.020, 1.025 08/03/2023 2:30 PM [facility] PH,URINE 7.0 6.0, 7.0, 8.0, 5.5, 6.5, 7.5, 8.5 08/03/2023 2:30 PM [facility] UROBILINOGEN, QUALITATIVE Normal Normal EU/dl 08/03/2023 2:30 PM [facility] PROTEIN, URINE Negative Negative mg/dL 08/03/2023 2:30 PM [facility] GLUCOSE, URINE Negative Negative mg/dL 08/03/2023 2:30 PM [facility] KETONES,URINE Negative Negative mg/dL 08/03/2023 2:30 PM [facility] BILIRUBIN,URI NE Negative Negative 08/03/2023 2:30 PM [facility] OCCULT BLOOD,URINE Moderate(A) Negative 08/03/2023 2:30 PM [facility] NITRITE Negative Negative 08/03/2023 2:30 PM [facility] LEUKOCYTE ESTERASE Negative Negative 08/03/2023 2:30 PM [facility] Urine URINE SPECIMEN / Unknown Non-Blood / Unknown 08/03/2023 2:23 PM CDT 08/03/2023 2:[address] BER[facility] URINE [facility] [address] [place] [address] * (ABNORMAL) CBC WITH AUTO DIFFERENTIAL (08/03/2023 1:17 PM CDT) Only the most recent of4 resultswithin the time period is included. WHITE BLOOD COUNT 4.5 4.5 - 11.0 thou/cu mm 08/03/2023 1:38 PM T [facility] RED BLOOD COUNT 4.74 4.00 - 5.20 mil/cu mm 08/03/2023 1:38 PM [facility] HEMOGLOBIN 11.7(L) 12.0 - 16.0 g/dL 08/03/2023 1:38 PM [facility] HEMATOCRIT 37.2 33.0 - 51.0 % 08/03/2023 1:38 PM [facility] MCV 79(L) 80 - 100 fL 08/03/2023 1:38 PM [facility] MCH 24.7(L) 26.0 - 34.0 pg 08/03/2023 1:38 PM [facility] MCHC 31.5(L) 32.0 - 36.0 g/dL 08/03/2023 1:38 PM [facility] RDW 17.6(H) 11.5 - 15.5 % 08/03/2023 1:38 PM [facility] PLATELET COUNT 249 140 - 440 thou/cu mm 08/03/2023 1:38 PM [facility] MPV 10.8 6.5 - 11.0 fL 08/03/2023 1:38 PM [facility] % NEUT 70.7 % 08/03/2023 1:38 PM [facility] % LYMPH 12.2 % 08/03/2023 1:38 PM [facility] % MONO 9.5 % 08/03/2023 1:38 PM [facility] % EOS 6.9 % 08/03/2023 1:38 PM CDT [facility] % BASO 0.7 % 08/03/2023 1:38 PM CDT [facility] ABSOLUTE NEUTROPHILS 3.2 1.7 - 7.0 thou/cu mm 08/03/2023 1:38 PM CDT [facility] ABSOLUTE LYMPHOCYTES 0.6(L) 0.9 - 2.9 thou/cu mm 08/03/2023 1:38 PM CDT [facility] ABSOLUTE MONOCYTES 0.4 <0.9 thou/cu mm 08/03/2023 1:38 PM CDT [facility] ABSOLUTE EOSINOPHILS 0.3 <0.5 thou/cu mm 08/03/2023 1:38 PM CDT [facility] ABSOLUTE BASOPHILS 0.0 <0.3 thou/cu mm 08/03/2023 1:38 PM CDT [facility] Blood BLOOD SPECIMEN / Unknown Butterfly / Unknown 08/03/2023 1:17 PM CDT 08/03/2023 1:[address] [facility] HEMATOLOGY [facility] [address] [place] [address] * LACTATE VENOUS (08/03/2023 1:17 PM CDT) Only the most recent of5 resultswithin the time period is included. LACTATE,VENOUS 1.1 0.5 - 2.0 mmol/L 08/03/2023 1:53 PM CDT [facility] Blood BLOOD SPECIMEN / Unknown Butterfly / Unknown 08/03/2023 1:17 PM CDT 08/03/2023 1:[address] [facility] CHEMISTRY [facility] [address] [place] [address] * (ABNORMAL) PROTIME-INR (08/03/2023 1:17 PM CDT) Only the most recent of4 resultswithin the time period is included. Pathologist [facility] INR 1.2 <1.3 08/03/2023 1:43 PM T [facility] PROTIME 12.9(H) 10.3 - 12.3 sec 08/03/2023 1:43 PM [facility] Blood BLOOD SPECIMEN / Unknown Butterfly / Unknown 08/03/2023 1:17 PM CDT 08/03/2023 1:33 PM CDT [facility] - 08/03/2023 1:43 PM CDT ?Therapeutic Range 2.0-3.0 for most anticoagulated [...] seconds if the patient is on UFH. Lane [facility]ERUM[facility] HEMATOLOGY [facility] [address] [place], [place] [id number] * (ABNORMAL) COMP METABOLIC PANEL (08/03/2023 1:17 PM CDT) Only the most recent of3 resultswithin the time period is included. Pathologist [facility] SODIUM 142 136 - 145 mmol/L 08/03/2023 2:09 PM T [facility] POTASSIUM 3.4(L) 3.5 - 5.1 mmol/L 08/03/2023 2:09 PM [facility] CHLORIDE 102 98 - 107 mmol/L 08/03/2023 2:09 PM T [facility] CO2,TOTAL 28 22 - 29 mmol/L 08/03/2023 2:09 PM [facility] ANION GAP 12 5 - 18 08/03/2023 2:09 PM [facility] GLUCOSE 106(H) 70 - 99 mg/dL 08/03/2023 2:09 PM [facility] CALCIUM 9.6 8.6 - 10.0 mg/dL 08/03/2023 2:09 PM [facility] BUN 4(L) 6 - 20 mg/dL 08/03/2023 2:09 PM [facility] CREATININE 0.44(L) 0.50 - 0.90 mg/dL 08/03/2023 2:09 PM [facility] BUN/CREAT RATIO 9(L) 10 - 20 2:09 PM [facility] eGFR >90 >90 mL/min/1.7 3m2 08/03/2023 2:09 PM [facility] Comment:As of 2021, eG FR is calculated by the CKD-EPI creatinine equation without race adjustment. ??eGFR can be influenced by muscle mass, exercise, and diet. ??The reported eGFR is an estimation only and is only applicable if the renal function is stable. ALBUMIN 4.2 4.0 - 4.9 g/dL 08/03/2023 2:09 PM [facility] PROTEIN,TOTAL 7.4 6.0 - 8.0 g/dL 08/03/2023 2:09 PM [facility] BILIRUBIN,TOTAL 0.5 0.0 - 1.2 mg/dL 08/03/2023 2:09 PM [facility] ALK PHOSPHATASE 104 35 - 104 IU/L 08/03/2023 2:09 PM [facility] ALT (SGPT) <5(L) 10 - 35 IU/L 08/03/2023 2:09 PM [facility] AST (SGOT) 22 10 - 35 IU/L 08/03/2023 2:09 PM [facility] Blood BLOOD SPECIMEN / Unknown Butterfly / Unknown 08/03/2023 1:17 PM CDT 08/03/2023 1:[address] [facility] CHEMISTRY [facility] [address] [place] [address] * XR CHEST 1 VIEW PORTABLE (08/03/2023 1:03 PM CDT) Only the most recent of2 resultswithin the time period is included. Anatomical Region Laterality Modality HEART, THORAX, CHEST Digital Rad iography 08/03/2023 1:08 PM CDT Impressions 08/03/2023 1:08 PM CDT No consolidation. Dictated by Roddy Ortiz MD @ 08/03/2023 1:08:07 PM (Electronically Signed) Narrative 08/03/2023 1:08 PM CDT For Patients: ??As a result of the Cures Act, medical imaging exams and procedure reports are released immediately into your electronic medical record. ??You may view this report before your referring provider. ??If you have questions, please contact your health care provider. INDICATION: Sepsis. TECHNIQUE: Chest 1 views. COMPARISON: May 2023. FINDINGS: Lungs: Normal lung volume. No consolidation. The tracheobronchial tree and hilar structures are unremarkable. Pleura: No pleural effusion or pneumothorax. Heart and Mediastinum: Normal heart size. The great vessels of the thorax are unremarkable. Bones: No acute displaced osseous process. Procedure Note Roddy Ortiz MD - 08/03/2023 For Patients: As a result of the Cures Act, medical imagingexams and procedure reports are released immediately into your electronicmedical record. You may view this report before your referring provider.If you have questions, please contact your health care provider. INDICATION: Sepsis. TECHNIQUE: Chest 1 views. COMPARISON: May 2023. FINDINGS: Lungs: Normal lung volume. No consolidation. The tracheobronchial tree andhilar structures are unremarkable. Pleura: No pleural effusion or pneumothorax. Heart and Mediastinum: Normal heart size. The great vessels of the thoraxare unremarkable. Bones: No acute displaced osseous process. IMPRESSION: No consolidation. Dictated by Roddy Ortiz MD @ 08/03/2023 1:08:07 PM (Electronically Signed) Lane [facility] GENER[facility] DAVID GING * US BREAST UNILATERAL LEFT LIMITED (08/02/2023 11:31 AM CDT) Anatomical Region Laterality Modality BREASTS, Breast Left, Breast Right Left Ultrasound, Other 08/02/2023 11:4 7 AM CDT Narrative 08/03/2023 6:30 AM CDT For Patients: As a result of the Cures Act, medical imaging exams and procedure reports are released immediately into your electronic medical record. ??You may view this report before your referring provider. ?? If you have questions, please contact your health care provider. LEFT BREAST LIMITED ULTRASOUND, 08/02/2023 INDICATION: LEFT breast abscess. TECHNIQUE: LEFT breast ultrasound. COMPARISON: ?? CT chest 06/19/2023 FINDINGS: There is a small, irregularly marginated, linear fluid collection extending to the lateral skin surface which may represent a residual abscess cavity. This is estimated to be approximately 2.0 x 0.5 cm. This is significantly diminished in size from the chest CT images of 06/19/2023. No other discrete abscess or ultrasound abnormality noted. No additional imaging recommendations. If additional imaging is required, you may consider repeating the CT scan or correlating with MRI. I do not think a mammogram would be helpful. BI-RADS Category 2: Benign Dictated by: Marcel Smith MD @08/02/2023 11:47:56 AM CRL:rcd Laurence BERUMEN US * CT CHEST ABDOMEN PELVIS W (06/19/2023 [...] 06/19/2023 12:45:40 PM (Electronically Signed) Alison Elmore NP CT * BLOOD CULTURE X2 (06/19/2023 11:49 AM CDT) Only the most recent of4 resultswithin the time period is included. CULTURE No Growth. 06/24/2023 1:51 PM CDT [facility] Blood BLOOD SPECIMEN / Unknown Butterfly / Unknown 06/19/2023 11:49 AM CDT 06/19/2023 12:15 PM CDT Alison Elmore NP MICROBIOLOG Y [facility] [address] [place] [address] * PROCALCITONIN (06/19/2023 11:39 AM CDT) PROCALCITONIN 0.04 ng/ml 06/19/2023 12:21 PM [facility] Blood BLOOD SPECIMEN / Unknown Butterfly / Unknown 06/19/2023 11:39 AM T 06/19/2023 11:47 AM CDT [facility] - 06/19/2023 12:21 PM CDT Procalcitonin [...] < 2 ng/mL are obtained. Alison Elmore [employer] Performing Organization Address [facility] de Phone Number [facility] [address] [place] [address] * (ABNORMAL) HEMOGLOBIN (06/05/2023 9:27 AM CDT) Only the most recent of4 resultswithin the time period is included. [facility] HEMOGLOBIN 9.3(L) 12.0 - 16.0 g/dL 06/05/2023 9:47 AM CDT [facility] MCV 82 80 - 100 fL 06/05/2023 9:47 AM CDT [facility] Blood BLOOD SPECIMEN / Unknown Butterfly / Unknown 06/05/2023 9:27 AM CDT 06/05/2023 9:36 AM CDT Kathy Rizzo NP HEMATOLOGY Performing Organization Address [facility] Co de Phone Number [facility] [address] [place] [address] * POTASSIUM (06/05/2023 9:27 AM CDT) Only the most recent of3 resultswithin the time period is included. [facility] POTASSIUM 4.0 3.5 - 5.1 mmol/L 06/05/2023 10:00 AM CDT [facility] Blood BLOOD SPECIMEN / Unknown Butterfly / Unknown 06/05/2023 9:27 AM CDT 06/05/2023 9:36 AM CDT Kathy Rizzo NP CHEMISTRY Performing Organization Address [facility] de Phone Number [facility] [address] [place] [address] * (ABNORMAL) CREATININE (06/05/2023 9:27 AM CDT) Only the most recent of3 resultswithin the time period is included. [facility] eGFR >90 >90 mL/min/1.7 3m2 06/05/2023 10:00 AM CDT [facility] Comment:As of 2021, eG FR is calculated by the CKD-EPI creatinine equation without race adjustment. ??eGFR can be influenced by muscle mass, exercise, and diet. ??The reported eGFR is an estimation only and is only applicable if the renal function is stable. CREATININE 0.48(L) 0.50 - 0.90 mg/dL 06/05/2023 10:00 AM CDT [facility] Blood BLOOD SPECIMEN / Unknown Butterfly / Unknown 06/05/2023 9:27 AM CDT 06/05/2023 9:36 AM CDT Kathy Rizzo NP CHEMISTRY Performing Organization Address City/[facility]/ZIP Co de Phone Number [facility] [address] [place] [address] * MAGNESIUM (06/05/2023 9:27 AM CDT) Only the most recent of2 resultswithin the time period is included. MAGNESIUM 1.7 1.6 - 2.6 mg/dL 06/05/2023 10:00 AM CDT [facility] Blood BLOOD SPECIMEN / Unknown Butterfly / Unknown 06/05/2023 9:27 AM CDT 06/05/2023 9:36 AM CDT Kathy Rizzo NP CHEMISTRY Performing Organization Address City/[facility]/ZIP Co de Phone Number [facility] [address] [place] [address] * GLUCOSE METER (06/05/2023 9:13 AM CDT) Only the most recent of23 resultswithin the time period is included. GLUCOSE METER 99 65 - 100 mg/dL 06/05/2023 11:29 AM CDT [facility] Blood BLOOD SPECIMEN / Unknown 06/05/2023 9:13 AM CDT 06/05/2023 11:29 AM CDT Kathy Rizzo NP CHEMISTRY Performing Organization Address [facility] Co de Phone Number [facility] [address] [place] [address] * EKG 12 LEAD (06/04/2023 11:46 AM CDT) Pathologist [facility] Interpretation Normal sinus rhythm Low voltage QRS [...] NOW QTc 442 ms BEYOND NOW P [place] 53 degrees BEYOND NOW R [place] -6 degrees BEYOND NOW T [place] 16 degrees BEYOND NOW 06/04/2023 11:4 6 AM CDT 06/04/2023 8:21 PM CDT Kathy Rizzo NP EKG ORD Performing Organization Address [facility] de Phone Number BEYOND NOW [place], [place] * WHITE BLOOD COUNT (06/04/2023 5:50 AM CDT) Only the most recent of2 resultswithin the time period is included. [facility] WHITE BLOOD COUNT 5.1 4.5 - 11.0 thou/cu mm 06/04/2023 6:32 AM CDT [facility] Blood BLOOD SPECIMEN / Unknown Butterfly / Unknown 06/04/2023 5:50 AM CDT 06/04/2023 6:25 AM CDT Kathy Rizzo NP HEMATOLOGY Performing Organization Address [facility] Co de Phone Number [facility] [address] [place] [address] * SODIUM (06/04/2023 5:50 AM CDT) Only the most recent of2 resultswithin the time period is included. [facility] SODIUM 138 136 - 145 mmol/L 06/04/2023 6:51 AM CDT [facility] Blood BLOOD SPECIMEN / Unknown Butterfly / Unknown 06/04/2023 5:50 AM CDT 06/04/2023 6:25 AM CDT Kathy Rizzo NP CHEMISTRY Performing Organization Address [facility]/ZIP Co de Phone Number [facility] [address] [place] [address] * (ABNORMAL) C-REACTIVE PROTEIN (06/03/2023 6:49 AM CDT) C-REACTIVE PROTEIN 3.5(H) <0.5 mg/dL 06/03/2023 7:36 AM CDT [facility] Blood BLOOD SPECIMEN / Unknown Butterfly / Unknown 06/03/2023 6:49 AM CDT 06/03/2023 6:53 AM CDT Rory Boyer DO CHEMISTRY Performing Organization Address [facility]/ZIP Co de Phone Number [facility] [address] [place] [address] * SCAN-CARDIAC STRIP (06/02/2023 10:13 AM CDT) Scanner OTHER * (ABNORMAL) CREATININE,ISTAT (06/02/2023 6:34 AM CDT) CREATININE, POCT 0.40(L) 0.57 - 1.11 mg/dL 06/02/2023 6:36 AM CDT [facility] Comment:Caution: Patients ta jaleel Hydroxyurea have falsely increased iStat Creatinine results. Verify creatinine results ordering a Creatinine (00098.2) eGFR >90 >90 mL/min/1.7 3m2 06/02/2023 6:36 AM CDT [facility] Comment:As of 2021, eG FR is calculated by the CKD-EPI creatinine equation without race adjustment. eGFR can be influenced by muscle mass, exercise, and diet. The reported eGFR is an estimation only and is only applicable if the renal function is stable. Blood BLOOD SPECIMEN / Unknown 06/02/2023 6:34 AM CDT 06/02/2023 6:36 AM CDT Rory Gibbs Rosalind PINA CHEMISTRY [facility] [address] [place] [address] * SCAN-CARDIAC STRIP (06/02/2023 3:50 AM CDT) Scanner OTHER * (ABNORMAL) URINE CULTURE (06/01/2023 10:08 PM CDT) CULTURE RESULT(A) 06/05/2023 9:31 AM CDT [facility] CULTURE >100,000 CFU/mL Escherichia coli 06/05/2023 9:31 AM CDT [facility] CULTURE 10,000-50,000 CFU/mL Enterococcus faecalis 06/05/2023 9:31 AM CDT [facility] Urine URINE SPECIMEN / Unknown Non-Blood / Unknown 06/01/2023 10:08 PM CDT 06/01/2023 10:13 PM CDT Narrative Organism Antibiotic Method Susceptibility Escherichia coli TRIMETHOPRIM/SULF <=/19: S Escherichia coli AMPICILLIN >=32: R Escherichia [...] NITROFURANTOIN <=16: S [address] [facility] MICROBIOLOG Y [facility] [address] [place] [address], * (ABNORMAL) AEROBIC BACTERIAL CULTURE, STAIN (06/01/2023 8:47 PM CDT) CULTURE RESULT(A) 06/05/2023 8:50 AM CDT [facility] CULTURE 3+ Pseudomonas stutzeri 06/05/2023 8:50 AM CDT [facility] GRAM STAIN No Epithelial cells 06/05/2023 8:50 AM CDT [facility] GRAM STAIN 4+ RBCs 06/05/2023 8:50 AM CDT [facility] GRAM STAIN 2+ PMNs 06/05/2023 8:50 AM CDT [facility] GRAM STAIN 2+ Gram Negative Bacilli 06/05/2023 8:50 AM CDT [facility] Other (Other) Non-Blood / Unknown [...] MEROPENEM <=0.25: S Lane BERUMEN MICROBIOLOG Y Performing Organization Address City/[facility]/ZIP Co de Phone Number [facility] [address] [place] [address], [place] * MUSCULOSKELETAL ULTRASOUND (05/28/2023 10:00 AM [...] cellulitis Darryl Hardy MD 05/28/2023 10:00 AM [facility] Emergency Department [phone] Darryl Hardy MD PROCEDURE ORD * (ABNORMAL) RED CELL MORPHOLOGY (05/28/2023 9:28 AM CDT) ELLIPTOCYTES Moderate 05/28/2023 10:04 AM CDT [facility] TEARDROP CELLS Few 05/28/2023 10:04 AM CDT [facility] RBC COMMENT Present(A) RBC morphology appears normal, RBC morphology within normal limits for newborns. 05/28/2023 10:04 AM CDT [facility] Blood BLOOD SPECIMEN / Unknown Butterfly / Unknown 05/28/2023 9:28 AM CDT 05/28/2023 9:35 AM CDT Josi Quevedo RN HEMATOLOGY Performing Organization Address City/[facility]/ZIP Co de Phone Number [facility] [address] [place] [address] * PLATELET ESTIMATE (05/28/2023 9:28 AM CDT) PLATELET ESTIMATE Adequate Adequate, No estimate 05/28/2023 10:04 AM [facility] Blood BLOOD SPECIMEN / Unknown Butterfly / Unknown 05/28/2023 9:28 AM CDT 05/28/2023 9:35 AM CDT Josi Quevedo RN HEMATOLOGY [facility] [address] [place] [address] * (ABNORMAL) MANUAL DIFFERENTIAL (05/28/2023 9:28 AM CDT) [facility] % NEUTROPHILS 81.0 % 05/28/2023 10:04 AM [facility] % LYMPHOCYTES 12.0 % 05/28/2023 10:04 AM [facility] % MONOCYTES 4.0 % 05/28/2023 10:04 AM [facility] % EOSINOPHILS 3.0 % 05/28/2023 10:04 AM [facility] % BASOPHILS 0.0 % 05/28/2023 10:04 AM [facility] NEUTROPHILS ABSOLUTE 5.5 1.7 - 7.0 thou/cu mm 05/28/2023 10:04 AM [facility] LYMPHOCYTES ABSOLUTE 0.8(L) 0.9 - 2.9 thou/cu mm 05/28/2023 10:04 AM [facility] MONOCYTES ABSOLUTE 0.3 <0.9 thou/cu mm 05/28/2023 10:04 AM [facility] EOSINOPHILS ABSOLUTE 0.2 <0.5 thou/cu mm 05/28/2023 10:04 AM [facility] BASOPHILS ABSOLUTE 0.0 <0.3 thou/cu mm 05/28/2023 10:04 AM [facility] Blood BLOOD SPECIMEN / Unknown Butterfly / Unknown 05/28/2023 9:28 AM CDT 05/28/2023 9:35 AM CDT Josi Quevedo RN HEMATOLOGY Performing Organization Address [facility]/ZIP Co de Phone Number [facility] [address] [place] [address] * TYPE AND SCREEN ONLY (05/28/2023 9:28 AM CDT) ABORH O Rh Positive 05/28/2023 10:20 AM CDT [facility] BLOOD BANK ANTIBODY SCREEN Negative Negative 05/28/2023 10:20 AM CDT [facility] BLOOD BANK SPECIMEN EXPIRATION DATE/TIME 05/31/23 23:59 05/28/2023 10:20 AM CDT [facility] BLOOD BANK Blood BLOOD SPECIMEN / Unknown Butterfly / Unknown 05/28/2023 9:28 AM CDT 05/28/2023 9:35 AM CDT Brian Ed Triage BLOOD BANK Performing Organization Address [facility] Co de Phone Number [facility] BLOOD BANK [address] [place] [address] * (ABNORMAL) HEPATIC FUNCTION PANEL (05/28/2023 9:28 AM CDT) ALBUMIN 4.6 4.0 - 4.9 g/dL 05/28/2023 9:55 AM CDT [facility] PROTEIN,TOTAL 7.9 6.0 - 8.0 g/dL 05/28/2023 9:55 AM CDT [facility] BILIRUBIN,TOTAL 0.5 0.0 - 1.2 mg/dL 05/28/2023 9:55 AM CDT [facility] BILIRUBIN,DIRECT <0.2 0.0 - 0.3 mg/dL 05/28/2023 9:55 AM CDT [facility] BILIRUBIN,INDIRE CT 05/28/2023 9:55 AM CDT [facility] Comment:Unable to calculate, Direct Bili <0.2 ALK PHOSPHATASE 144(H) 35 - 104 IU/L 05/28/2023 9:55 AM [facility] ALT (SGPT) 6(L) 10 - 35 IU/L 05/28/2023 9:55 AM [facility] AST (SGOT) 19 10 - 35 IU/L 05/28/2023 9:55 AM [facility] Blood BLOOD SPECIMEN / Unknown Butterfly / Unknown 05/28/2023 9:28 AM CDT 05/28/2023 9:35 AM CDT Darryl Hardy MD CHEMISTRY [facility] [address] [place] [address] * (ABNORMAL) Basic Metabolic Panel (05/28/2023 9:28 AM CDT) SODIUM 142 136 - 145 mmol/L 05/28/2023 9:55 AM [facility] POTASSIUM 4.0 3.5 - 5.1 mmol/L 05/28/2023 9:55 AM [facility] CHLORIDE 104 98 - 107 mmol/L 05/28/2023 9:55 AM [facility] CO2,TOTAL 28 22 - 29 mmol/L 05/28/2023 9:55 AM [facility] ANION GAP 10 5 - 18 05/28/2023 9:55 AM [facility] GLUCOSE 94 70 - 99 mg/dL 05/28/2023 9:55 AM [facility] CALCIUM 10.1(H) 8.6 - 10.0 mg/dL 05/28/2023 9:55 AM [facility] BUN 6 6 - 20 mg/dL 05/28/2023 9:55 AM [facility] CREATININE 0.53 0.50 - 0.90 mg/dL 05/28/2023 9:55 AM [facility] BUN/CREAT RATIO 11 10 - 20 9:55 AM [facility] eGFR >90 >90 mL/min/1.7 3m2 05/28/2023 9:55 AM CDT [facility] Comment:As of 2021, eG [...] 9:35 AM CDT Josi Quevedo RN CHEMISTRY [facility] [address] [place] [address] * PATH TISSUE EXAM (05/09/2023 10:20 AM CDT) Case Report Pathology Report ?Case: [id number] ? Authorizing Provider: ??Alfredo Arce MD ?Collected: ? 05/09/2023 1020 ? Ordering Location: ? [facility] ?Received: ?05/09/2023 1348 ? [facility] Center ? Pathologist: ? Roddy Wright MD ? Specimens: ?? A) - Left Breast ? B) - Right Breast ? 05/11/2023 11:51 AM [facility]AL LABORATORY Final Diagnosis A) LEFT BREAST, REDUCTION MAMMOPLASTY: 1. Benign breast tissue with proliferative fibrocystic change 2. Negative for atypia and malignancy B) RIGHT BREAST, REDUCTION MAMMOPLASTY: 1. Benign breast tissue with proliferative fibrocystic change 2. Negative for atypia and malignancy 05/11/2023 11:51 AM [facility] Clinical Information Bilateral disabling macromastia 05/11/2023 11:51 AM [facility] LABORAT[facility]-C ENTRAL LABORATORY Gross Description A) Received in formalin, labeled with the patient's name and left breast, is a 1057 g, 22.0 x 19.0 x 5.0 cm aggregate of yellow-beltran fibrofatty tissue and beltran smooth unremarkable skin. The specimen is serially sectioned revealing yellow-beltran cut surfaces consisting of approximately 70% yellow adipose tissue and 30% beltran fibrous tissue. No discrete lesions are noted. Mri Tech sections are submitted in 3 cassettes. Time [...] fibrous tissue. No discrete lesions are noted. Mri Tech sections are submitted in 3 cassettes. Time removed from patient: 1049 Time placed in formalin: 1135 Date removed and placed in formalin: 05/09/2023 The specimen was fixed in formalin for a minimum of 6 hours and not longer than 72 hours. [place] 05/09/2023 05/11/2023 11:51 AM CDT [facility]-C ENTRAL LABORATORY Microscopic Description The final diagnosis is based on microscopic examination of appropriate sections of all specimens. 05/11/2023 11:51 AM CDT [facility]-C ENTRAL LABORATORY Additional Information Interpreted at [facility], Central Laboratory - [address] [place] [address]. [facility] [address], [place] [address] 05/11/2023 11:51 AM CDT [facility]-C ENTRAL LABORATORY Tissue (Left Breast) 05/09/2023 10:20 AM CDT 05/09/2023 1:48 PM CDT Tissue specimen (specimen) (Right Breast) 05/09/2023 10:49 AM CDT 05/09/2023 1:48 PM CDT Alfredo Arce MD PATHOLOGY/CYTOLOGY [facility]-CENTRAL LABORATORY [address] [place] [address], * [facility] PR5 (05/09/2023 10:08 AM [...] - 199 mg/dL 11/30/2022 11:51 PM CDT [facility] Comment: Cholesterol, Total Reference Ranges Desirable <200 mg/dL Borderline 200-239 mg/dL High >=240 mg/dL TRIGLYCERIDES 149 <150 mg/dL 11/30/2022 11:51 PM CDT [facility] HDL CHOLESTEROL 36(L) >40 mg/dL 11:51 PM CDT [facility] NON-HDL CHOLESTEROL 124 <145 mg/dl 11/30/2022 11:51 PM CDT [facility] CHOL/HDL RATIO 4.44 <4.50 11/30/2022 11:51 PM CDT [facility] LDL CHOLESTEROL 94 <=130 mg/dL 11/30/2022 11:51 PM CDT [facility] VLDL CHOLESTEROL 30 <=30 mg/dL 11/30/2022 11:51 PM CDT [facility] PROVIDER ORDERED STATUS RANDOM 11/30/2022 11:51 PM CDT [facility] Blood BLOOD SPECIMEN / Unknown Butterfly / Unknown 11/30/2022 4:09 PM CDT 11/30/2022 4:11 PM CDT Laurence BERUMEN CHEMISTRY [facility]-CENTRAL LABORATORY [address] [place] [address], * XR MAMMO KAYLEE BILAT SCREEN (06/07/2022 [...] care provider. XR MAMMO KAYLEE BILAT SCREEN [[id number]] CLINICAL HISTORY: ??This is an asymptomatic 47 [...] carly Non-React carly 09/23/2021 4:44 PM CDT [facility] LAB[facility]AT[facility] Comment:Antibodies to HCV no t detected; does not exclude the possibility of exposure to HCV. Blood BLOOD SPECIMEN / Unknown Venipuncture / Unknown 09/20/2021 11:11 PM CDT 09/20/2021 11:15 PM CDT Bela Chávez MD SEND OUTS [facility]-CENTRAL LABORATORY [address] [place] [address], * ANTI HIV 1/2 (09/20/2021 11:11 PM CDT) HIV-1/HIV-2 ANTIBODY Non-Reacti ve Non-Reacti ve 09/23/2021 6:18 PM CDT [facility] TR[facility]ATORY Comment:HIV-1 p24 and HIV-1/ HIV-2 Ab not detected. Blood BLOOD SPECIMEN / Unknown Venipuncture / Unknown 09/20/2021 11:11 PM CDT 09/20/2021 11:15 PM CDT Bela Chávez MD SEND OUTS [facility] [address] [place] [address], from Last 3 Months or Most Recently Relevant to Health Maintenance Advance Directives Documents on File Type Date Recorded Patient Mri Tech Expl anation Healthcare Directive 12/15/2022 023 POLST [...] Intubation Drug Protocol: No Restrictions Care Teams Websphere Commerce Developer Relationship Specialty Start Date End Date Laurence Mujica PA [address] [place] [address] PCP - General Physician Credit Authorizer 07/16/14 Yumiko Garcia NP [address] [place] [address] Psychiatry Nurse Practitioner 04/07/16 Nga White MD [address] [place] [address] Surgery - Urology 06/15/22 [facility] [place] [address] [place] [address] 04/30/23 [facility] [place] [address] [place] [address] 04/30/23
== END 2023-08-08 11:04 | disposition home or self-care (01) ==
LOC: WOUND 11:03
PROVIDERS: PCP Physician Assistant; Visit Provider Surgery
DX: E11.628 Type 2 diabetes mellitus with other skin complications (principal); T81.31XA Disruption of external operation (surgical) wound, not elsewhere classified, initial encounter; G35 Multiple sclerosis; Z79.84 Long term (current) use of oral hypoglycemic drugs
CPT/HCPCS: 97597; 97605

== ENCOUNTER 2023-08-15 14:46 | Outpatient (CLI) | payer MEDICARE, MEDICAID, SELFPAY ==
--- OUTSIDE RECORDS SUMMARY | 2023-08-15 14:48 | XMS_ITS ---
Author Organization [facility] Address [address] [place] [address] [address] [place] [address] Care Team Providers Care Trim Attacher Name Role Phone Laurence Mujica Primary Care Provider UnavailDavid Tripathi Unavailable [phone] Raymond Jurado DO Unavailable Unavailable Anton Griffin Unavailable [phone] ALLERGIES Allergen (clinical drug ingredient) Drug/Non Drug Allergy documented on EMR Reaction Allergy Type Onset Date Status fentanyl Fentanyl Hallucinations Drug Allergy Ac tive REASON FOR VISIT dispersed body pain MEDICATIONS Medication SIG (Take, Route, Frequency, Duration) Notes Start Date End Date Status DULoxetine HCl 60 MG Oral for 32 Days Active Cetirizine HCl 10 MG Oral for 30 Days Active Ondansetron [address] 1 TABLET (4 MG ) ON THE TONGUE EVERY 8 HOURS IF NEEDED FOR NAUSEA/VOMITING. Oral for 10 Days Active Fluticasone Propionate 50 MCG/ACT INHALE 1-2 SPRAYS TO BOTH NOSTRILS ONCE DAILY. Nasal for 24 Days Active Dimethyl Fumarate 240 MG TAKE ONE CAPSUL E BY MOUTH TWO TIMES A DAY Oral for 30 Days Active Dilaudid 2 MG 1 tablet as needed O rally every 4 hrs for 30 days 07/31/2023 Active Trulicity 0.75 MG/0.5ML Subcutaneous for 28 Days Active Atorvastatin Calcium 20 MG Oral for 90 Days Active Eszopiclone 3 MG 1 tablet immediately before bedtime Oral Once a day for 30 days Active Famotidine 40 MG Oral for 90 Days Active Amantadine HCl 100 MG Oral for 30 Days Active ARIPiprazole 30 MG 1 tablet Oral Once a day for 90 days Active Amphetamine-Dextroamphetam ine 15 MG 1 tablet Orally once a day A ctive Omeprazole 40 MG Oral for 90 Days Active SOCIAL HISTORY Tobacco Use: Social [...] ast year? No Points 0 Interpretation Negative VITAL SIGNS Height 69 in 07/31/2023 Weight 187 lbs 07/31/2023 BMI 27.61 kg/m2 07/31/2023 Blood pressure systolic 120 mm Hg 07/31/19 24 Blood pressure diastolic 72 mm Hg 024 Encounters Encounter Location Date Provider Diagnosis [address] [facility] [address] [facility] [address] [place] [address] 07/31/2023 Anton Bolick Pain in leg, unspecified M79.606 ; Fibromyalgia M79.7 and Other chronic pain G89.29 ASSESSMENTS Encounter Date Diagnosis Assessment Notes Treatment Notes Treatment Clinical Notes 07/31/2023 Pain in leg, unspecified (ICD-10 - M79.606) 07/31/2023 Fibromyalgia (ICD-10 - M79.7) 07/31/2023 Other chronic pain (ICD-10 - G89.29) Mariana returns to clinic today for a follow up evaluation regarding her chronic dispersed body pain. I have reviewed the [place] [employer] database and did not find any inconsistencies. [...] call with any questions, problems or concerns. 07/31/2023 Other Iain Min, am serving as [...] decisions made by her. PLAN OF TREATMENT Medication Medication Name Sig Start Date Stop Date Notes Dilaudid 2 MG 1 tablet as needed O rally every 4 hrs for 30 days 07/31/2023 oxyCODONE HCl 10 MG 1 tablet as needed O rally (ok to fill 07/07/2023) every 6 hrs for 30 days Treatment Notes Assessment Notes Other chronic pain Mariana returns to clinic today for a follow up evaluation regarding her chronic dispersed body pain. I have reviewed the [place] [employer] database and did not find any inconsistencies. [...] call with any questions, problems or concerns. Other Iain Min, am s erving as a scribe to document services personally [...] performed and the decisions made by her. Next Appt Details Follow Up: 4 Weeks, Reason: Provider Name:Anton schmidt, 08/29/2023 02:00:00 PM, [address] [facility], [address], [place], [address], Progress Notes * Examination Category Sub-Category Detail Notes Musculoskeletal Constitutional: obese body habit us, well groomed, in no acute distress Musculoskeletal: requires assistive d evice for ambulation: walker, sits comfortably Skin: No rashes, scars, or lesions on visible skin. Neurological normal coordination upper extremities, normal coordination lower extremities, alert and oriented x3, normal mood and affect History and Physical Notes * HPI (History of Present Illness) Category Sub-Category Detail Notes Depression Screening Screening not performed Reason:: Patient Reason ?Type of Patient Reason:: Patient refuse d service PQRS MEASURE 154,155 Fall Risk Have you had t wo or more falls in the past year?: No Have you had any falls with injury in e past year?: No Plan of Care:: Documented
--- OUTSIDE RECORDS SUMMARY | 2023-08-15 14:48 | XMS_ITS ---
Author Organization [facility] Address [address] [place] [address] [address] [place] [address] Care Team Providers Care Oven Stripper Name Role Phone Laurence Mujica Primary Care Provider UnavailDavid Tripathi Unavailable [phone] Raymond Jurado DO Unavailable Unavailable Anton Griffin Unavailable [phone] ALLERGIES Allergen (clinical drug ingredient) Drug/Non Drug Allergy documented on EMR Reaction Allergy Type Onset Date Status fentanyl Fentanyl Hallucinations Drug Allergy Ac tive REASON FOR VISIT Dispersed Body Pain MEDICATIONS Medication SIG (Take, Route, Frequency, Duration) Notes Start Date End Date Status Dimethyl Fumarate 240 MG TAKE ONE CAPSUL [...] FOR NAUSEA/VOMITING. Oral for 10 Days Active DULoxetine HCl 60 MG Oral for 32 Days Active Eszopiclone 3 MG 1 tablet immediately before bedtime Oral Once a day for 30 days Active Trulicity 0.75 MG/0.5ML Subcutaneous for 28 Days Active Atorvastatin Calcium 20 MG Oral for 90 Days Active Famotidine 40 MG Oral for 90 Days Active oxyCODONE HCl 10 MG 1 tablet as needed O rally (ok to fill 07/07/2023) every 6 hrs for 30 days 07/07/2023 Active ARIPiprazole 30 MG 1 tablet Oral Once a day for 90 days Active Omeprazole 40 MG Oral for 90 Days Active Amphetamine-Dextroamphetam ine 15 MG 1 tablet Orally once a day A ctive Amantadine HCl 100 MG Oral for 30 Days Active SOCIAL HISTORY [...] Interpretation Negative VITAL SIGNS Height 69 in 07/04/2023 Blood pressure systolic 112 mm Hg 07/04/19 24 Blood pressure diastolic 70 mm Hg 024 Encounters Encounter Location Date Provider Diagnosis [address] [facility] [address] [facility] [address] [place] [address] 07/04/2023 Anton Griffin Other chronic pain G89.29 and Pain in leg, unspecified M79.606 ASSESSMENTS Encounter Date Diagnosis Assessment Notes Treatment Notes Treatment Clinical Notes 07/04/2023 Other chronic pain (ICD-10 - G89.29) Mariana returns to clinic today for a follow up evaluation regarding her chronic dispersed body pain. I have reviewed the [facility] database and did not find any [...] leg, unspecified (ICD-10 - M79.606) 07/04/2023 Other I, Dy Say Tae, am serving as a scribe to [...] decisions made by me. PLAN OF TREATMENT Medication Medication Name Sig Start Date Stop Date Notes oxyCODONE HCl 10 MG 1 tablet as needed O rally (ok to fill 07/07/2023) every 6 hrs for 30 days 07/07/2023 Treatment Notes Assessment Notes Other chronic pain Mariana returns to clinic today for a follow up evaluation regarding her chronic dispersed body pain. I have reviewed the [facility] database and did not find any [...] with any questions, problems or concerns. Other I, Dy Say Tae, am se rving as a scribe to document services personally [...] performed and the decisions made by me. Next Appt Details Follow Up: 4 Weeks, Reason: Provider Name:Anton schmidt, 08/29/2023 02:00:00 PM, [address], [address], [place], [address], Progress Notes * Examination Category Sub-Category Detail Notes Musculoskeletal Constitutional: weight not taken , well groomed, in no acute distress Musculoskeletal: patient utilizes a w heelchair for assistance, sits comfortably Skin: No rashes, scars, or lesions on visible skin. Neurological normal coordination upper extremities, normal coordination lower extremities, alert and oriented x3, normal mood and affect History and Physical Notes * HPI (History of Present Illness) Category Sub-Category Detail Notes Depression Screening PHQ-9 Little inte rest or pleasure in doing things: Nearly every day Feeling down, depressed, or hopeless: Ne gloria every day Trouble falling or staying asleep, or sl eeping too much: Nearly every day Feeling tired or having little energy: N early every day Poor appetite or overeating: Nearly ever y day Feeling bad about yourself o r that you are a failure, or have let yourself or your family down: Nearly every day Trouble concentrating on thi ngs, such as reading the newspaper or watching television: Nearly every day Moving or speaking so slowly that other people could have noticed; or the opposite, being so fidgety or restless that you have been moving around a lot more than usual: Nearly every day Thoughts that you would be b rhianna off or of hurting yourself in some way: Not at all Total Score: 24 Interpretation: Severe Depression Intervention Depression Screening Findings: P osmeg Name of the standardized too l used for adult depression screening:: Patient Health Questionnaire (PHQ-9) Follow-Up for Depression: Mental health care education PQRS MEASURE 154,155 Fall Risk Have you had t wo or more falls in the past year?: No Have you had any falls with injury in e past year?: No
--- OUTSIDE RECORDS SUMMARY | 2023-08-15 14:49 | XMS_ITS | Encounter Summary ---
Author Organization [facility] Address [address] [place] [address] Care Team Providers Care Microsoft Infrastructure Consultant Name Role Phone Elsewhere, Pcp Primary Care Provider Unavailabl e Encounter Details Date Type Department Care Team (Late st Contact Info) Description 01/07/2004 Historical Ophthalmology [facility] Esequiel Reyes M.D. Social History Tobacco Use Types Packs/Day Years Used Date Smoking Tobacco: Never Assessed Sex and Gender Information Value Date Recorded Sex Assigned at Female 01/25/2022 2:30 PM ENGLISH DIVISION CHAIR Gender Identity Female 01/25/2022 2:30 PM ENGLISH DIVISION CHAIR Sexual Orientation Straight 01/25/2022 2: 30 PM ENGLISH DIVISION CHAIR documented as of this encounter Progress Notes [...] #4 Photophobia CDM Reports - EYEGEN Id: [id number] Status: Fnl documented in this encounter Plan of Treatment Not on file documented as of this encounter Visit Diagnoses Not on filedocumented in this encounter Additional Health Concerns Infection Onset Date Last Indicated Resolved Time COVID19 Pending 12/17/2020 12/17/2020 01/06/2021 4 :54 AM ENGLISH DIVISION CHAIR documented as of this encounter Care Teams Microsoft Infrastructure Consultant Relationship Specialty Start Date End Date Elsewhere, Pcp PCP - General Family Medicine 12/19/20 documented as of this encounter
--- OUTSIDE RECORDS SUMMARY | 2023-08-15 14:49 | XMS_ITS | Encounter Summary ---
Author Organization [facility] Address [address] [place] [address] Care Team Providers Care Traffic Attendant Name Role Phone Elsewhere, Pcp Primary Care Provider Unavailabl e Encounter Details Date Type Department Care Team (Late st Contact Info) Description 01/22/2004 Historical Ophthalmology [facility] Roddy Palmer M.D. [address] [place] [id number] Social History Tobacco Use Types Packs/Day Years Used Date Smoking Tobacco: Never Assessed Sex and Gender Information Value Date Recorded Sex Assigned at Female 01/25/2022 2:30 PM PYROMETER OPERATOR Gender Identity Female 01/25/2022 2:30 PM PYROMETER OPERATOR Sexual Orientation Straight 01/25/2022 2: 30 PM PYROMETER OPERATOR documented as of this encounter Progress [...] from a refration. Will continue prednisolone at [facility], recheck 3 weeks with refraction. DIAGNOSIS #1 Episcleritis, scleritis #2 Optic atrophy R #3 Pars planitis L CDM Reports - EYEGEN Id: [id number] Status: Fnl documented in this encounter Plan of Treatment Not on file documented as of this encounter Visit Diagnoses Not on filedocumented in this encounter Additional Health Concerns Infection Onset Date Last Indicated Resolved Time COVID19 Pending 12/17/2020 12/17/2020 01/06/2021 4 :54 AM PYROMETER OPERATOR documented as of this encounter Care Teams Traffic Attendant Relationship Specialty Start Date End Date Elsewhere, Pcp PCP - General Family Medicine 12/19/20 documented as of this encounter
--- OUTSIDE RECORDS SUMMARY | 2023-08-15 14:49 | XMS_ITS | Encounter Summary ---
Author Organization [facility] Address [address] [place] [address] Care Team Providers Care Framing Specialist Name Role Phone Elsewhere, Pcp Primary Care Provider Unavailabl e Encounter Details Date Type Department Care Team (Late st Contact Info) Description 01/11/2004 Historical Ophthalmology [facility] Esequiel Reyes M.D. Social History Tobacco Use Types Packs/Day Years Used Date Smoking Tobacco: Never Assessed Sex and Gender Information Value Date Recorded Sex Assigned at Female 01/25/2022 2:30 PM ADDICTION THERAPIST Gender Identity Female 01/25/2022 2:30 PM ADDICTION THERAPIST Sexual Orientation Straight 01/25/2022 2: 30 PM ADDICTION THERAPIST documented as of this encounter Progress Notes [...] planitis L CDM Reports - EYEGEN Id: [id number] Status: Fnl documented in this encounter Plan of Treatment Not on file documented as of this encounter Visit Diagnoses Not on filedocumented in this encounter Additional Health Concerns Infection Onset Date Last Indicated Resolved Time COVID19 Pending 12/17/2020 12/17/2020 01/06/2021 4 :54 AM ADDICTION THERAPIST documented as of this encounter Care Teams Framing Specialist Relationship Specialty Start Date End Date Elsewhere, Pcp PCP - General Family Medicine 12/19/20 documented as of this encounter
--- OUTSIDE RECORDS SUMMARY | 2023-08-15 14:49 | XMS_ITS | Encounter Summary ---
Author Organization [facility] Address [address] [place] [address] Care Team Providers Care Heel Seat Laster Name Role Phone Elsewhere, Pcp Primary Care Provider Unavailabl e Encounter Details Date Type Department Care Team (Late st Contact Info) Description 09/18/2014 Historical Ophthalmology [facility] Kristen Westfall M.D. Social History Tobacco Use Types Packs/Day Years Used Date Smoking Tobacco: Never Assessed Sex and Gender Information Value Date Recorded Sex Assigned at Female 01/25/2022 2:30 PM PUBLIC RELATIONS MANAGER Gender Identity Female 01/25/2022 2:30 PM PUBLIC RELATIONS MANAGER Sexual Orientation Straight 01/25/2022 2: 30 PM PUBLIC RELATIONS MANAGER documented as of this encounter Progress [...] / PLAN Consult requested by: Josi Martinez [phone] #1 Blurred vision left eye. Today she [...] optic atrophy. CD Reports - EYEGEN Id: [id number] Status: Fnl documented in this encounter Plan of Treatment Not on file documented as of this encounter Visit Diagnoses Not on filedocumented in this encounter Additional Health Concerns Infection Onset Date Last Indicated Resolved Time COVID19 Pending 12/17/2020 12/17/2020 01/06/2021 4 :54 AM PUBLIC RELATIONS MANAGER documented as of this encounter Care Teams Heel Seat Laster Relationship Specialty Start Date End Date Elsewhere, Pcp PCP - General Family Medicine 12/19/20 documented as of this encounter
--- OUTSIDE RECORDS SUMMARY | 2023-08-15 14:49 | XMS_ITS | Encounter Summary ---
Author Organization [facility] Address [address] [place] [address] Care Team Providers Care Terrazzo Layer Helper Name Role Phone Elsewhere, Pcp Primary Care Provider Unavailabl e Encounter Details Date Type Department Care Team (Late st Contact Info) Description 08/21/2014 Historical Ophthalmology [facility] Adolph De Santiago M.D., Ph.D. [address] [place] [address] Social History Tobacco Use Types Packs/Day Years Used Date Smoking Tobacco: Never Assessed Sex and Gender Information Value Date Recorded Sex Assigned at Female 01/25/2022 2:30 PM SENIOR HADOOP DEVELOPER Gender Identity Female 01/25/2022 2:30 PM SENIOR HADOOP DEVELOPER Sexual Orientation Straight 01/25/2022 2: 30 PM SENIOR HADOOP DEVELOPER documented as of this encounter Progress [...] eye or something. She was inpatient at [facility] in April [address] Marroquin for a right periorbital lesion.On 04/29/14, ENT took the patient to the operating room and performed an aspiration and culture, orbital, periorbital, and paranasal sinus contents. Pathology showed chronic inflammation with no sign of infection. The patient was transferred to [facility] yesterday (08/20/14) from [facility] in [place] for right sided hemiplegia and hemisensory loss [...] has not followed-up in 3-5 years witha awning installer. She presented to the [place] ED with progressive right sided hemisensory loss, [...] at home she has been taking Lyrica, [place], and Vicodin; however she is unsure what [...] light perception) CDM Reports - EYEGEN Id: [id number] Status: Fnl documented in this encounter Plan of Treatment Not on file documented as of this encounter Visit Diagnoses Not on filedocumented in this encounter Additional Health Concerns Infection Onset Date Last Indicated Resolved Time COVID19 Pending 12/17/2020 12/17/2020 01/06/2021 4 :54 AM SENIOR HADOOP DEVELOPER documented as of this encounter Care Teams Terrazzo Layer Helper Relationship Specialty Start Date End Date Elsewhere, Pcp PCP - General Family Medicine 12/19/20 documented as of this encounter
--- OUTSIDE RECORDS SUMMARY | 2023-08-15 14:49 | XMS_ITS | Encounter Summary ---
Author Organization [facility] Address [address] [place] [address] Care Team Providers Care Mill Manager Name Role Phone Elsewhere, Pcp Primary Care Provider Unavailabl e Encounter Details Date Type Department Care Team (Late st Contact Info) Description 07/20/2006 Historical Ophthalmology [facility] Roddy Palmer M.D. [address] [place] [id number] Social History Tobacco Use Types Packs/Day Years Used Date Smoking Tobacco: Never Assessed Sex and Gender Information Value Date Recorded Sex Assigned at Female 01/25/2022 2:30 PM CONSTITUTIONAL LAW PROFESSOR Gender Identity Female 01/25/2022 2:30 PM CONSTITUTIONAL LAW PROFESSOR Sexual Orientation Straight 01/25/2022 2: 30 PM CONSTITUTIONAL LAW PROFESSOR documented as of this encounter Progress Notes [...] left eye. CD Reports - EYEGEN Id: [id number] Status: Fnl documented in this encounter Plan of Treatment Not on file documented as of this encounter Visit Diagnoses Not on filedocumented in this encounter Additional Health Concerns Infection Onset Date Last Indicated Resolved Time COVID19 Pending 12/17/2020 12/17/2020 01/06/2021 4 :54 AM CONSTITUTIONAL LAW PROFESSOR documented as of this encounter Care Teams Mill Manager Relationship Specialty Start Date End Date Elsewhere, Pcp PCP - General Family Medicine 12/19/20 documented as of this encounter
--- OUTSIDE RECORDS SUMMARY | 2023-08-15 14:49 | XMS_ITS | Encounter Summary ---
Author Organization [facility] Address [address] [place] [address] Care Team Providers Care Inspector Production Plastic Parts Name Role Phone Elsewhere, Pcp Primary Care Provider Unavailabl e Encounter Details Date Type Department Care Team (Late st Contact Info) Description 03/11/2002 Historical Ophthalmology [facility] Carlos Zendejas M.D. [address] [place] [address] Social History Tobacco Use Types Packs/Day Years Used Date Smoking Tobacco: Never Assessed Sex and Gender Information Value Date Recorded Sex Assigned at Female 01/25/2022 2:30 PM HOSPITAL NURSE Gender Identity Female 01/25/2022 2:30 PM HOSPITAL NURSE Sexual Orientation Straight 01/25/2022 2: 30 PM HOSPITAL NURSE documented as of this encounter Progress Notes [...] rechek prn CDM Reports - EYEGEN Id: [id number] Status: Fnl documented in this encounter Plan of Treatment Not on file documented as of this encounter Visit Diagnoses Not on filedocumented in this encounter Additional Health Concerns Infection Onset Date Last Indicated Resolved Time COVID19 Pending 12/17/2020 12/17/2020 01/06/2021 4 :54 AM HOSPITAL NURSE documented as of this encounter Care Teams Inspector Production Plastic Parts Relationship Specialty Start Date End Date Elsewhere, Pcp PCP - General Family Medicine 12/19/20 documented as of this encounter
--- OUTSIDE RECORDS SUMMARY | 2023-08-15 14:49 | XMS_ITS ---
Author Organization [facility] Address [address] [place] [address] Care Team Providers Care Field Cane Scaler Helper Name Role Phone Unavailable Unavailable Unavailable Surgery Details Not on file Complications Check Surgery Details section. Procedure Estimated Blood Loss Check Surgery Details section. Procedure Findings Check Surgery Details section. Procedure Specimens Taken Check Surgery Details section.
--- OUTSIDE RECORDS SUMMARY | 2023-08-15 14:49 | XMS_ITS | Encounter Summary ---
Author Organization [facility] Address [address] [place] [address] Care Team Providers Care Weatherization Crew Leader Name Role Phone Elsewhere, Pcp Primary Care Provider Unavailabl e Encounter Details Date Type Department Care Team (Late st Contact Info) Description 02/16/2004 Historical Ophthalmology [facility] Roddy Palmer M.D. [address] [place] [phone] Social History Tobacco Use Types Packs/Day Years Used Date Smoking Tobacco: Never Assessed Sex and Gender Information Value Date Recorded Sex Assigned at Female 01/25/2022 2:30 PM DAY TRADER Gender Identity Female 01/25/2022 2:30 PM DAY TRADER Sexual Orientation Straight 01/25/2022 2: 30 PM DAY TRADER documented as of this encounter Progress Notes [...] #3 Pars planitis L CD[facility] Id: [id number] Status: Fnl documented in this encounter Plan of Treatment Not on file documented as of this encounter Visit Diagnoses Not on filedocumented in this encounter Additional Health Concerns Infection Onset Date Last Indicated Resolved Time COVID19 Pending 12/17/2020 12/17/2020 01/06/2021 4 :54 AM DAY TRADER documented as of this encounter Care Teams Weatherization Crew Leader Relationship Specialty Start Date End Date Elsewhere, Pcp PCP - General Family Medicine 12/19/20 documented as of this encounter
--- OUTSIDE RECORDS SUMMARY | 2023-08-15 14:49 | XMS_ITS | Patient Health Record ---
Author Organization [facility] Address [address] [place] [address] [address] [place] [address] Care Team Providers Care Repairer Finished Metal Name Role Phone Laurence Mujica Primary Care Provider UnavailDavid Tripathi Unavailable [phone] Raymond Jurado DO Unavailable Unavailable Victor Hugo Wheat Unavailable [phone] Anton Griffin Unavailable [phone] Rod Golden Unavailable [phone] Fabian Walsh Unavailable [phone] ALLERGIES Allergen (clinical drug ingredient) Drug/Non Drug Allergy documented on EMR Reaction Allergy Type Onset Date Status fentanyl Fentanyl Hallucinations Drug Allergy Ac tive RESULTS Component Value Reference Range Notes Urine toxicology Reviewed date:05/21/2023 12:21:59 PM Interpretation:See Results Performing Lab: Notes/Report: See Results CARLOS Buprenophine OPI 300 0 AMP Ethanol MET Creatinine MDMA pH Specific [place] BAR BZO OXY See Results MTD Urine toxicology Reviewed date:05/21/2023 12:21:59 PM Interpretation:See Results Performing Lab: Notes/Report: See Results CARLOS Buprenophine OPI 300 0 AMP Ethanol MET Creatinine MDMA pH Specific [place] BAR BZO OXY See Results MTD Urine toxicology Reviewed date:03/07/2023 03:21:55 PM Interpretation:See Results Performing Lab: Notes/Report: See Results CARLOS Buprenophine OPI 300 1000 AMP Ethanol MET Creatinine MDMA pH Specific [place] BAR BZO OXY See Results MTD Urine toxicology Reviewed date:11/14/2022 03:40:36 PM Interpretation:See Results Performing Lab: Notes/Report: See Results CARLOS Buprenophine OPI 300 0 AMP Ethanol MET Creatinine MDMA pH Specific [place] BAR BZO OXY See Results MTD Urine toxicology Reviewed date:11/14/2022 03:40:36 PM Interpretation:See Results Performing Lab: Notes/Report: See Results CARLOS Buprenophine OPI 300 0 AMP Ethanol MET Creatinine MDMA pH Specific [place] BAR BZO OXY See Results MTD REASON [...] dependence, uncomplicated (F11.20) Active confirmed Opioid dependence (96060382) Problem Personality disorder, unspecified (F60.9) 9 Active confirmed Unspecified Personality Disorder; rule out mixed ( borderline, dependent, negativistic, explosive traits); rule out organic (70973293) Problem Other chronic pain (G89.29) Active confirmed Chronic pain (42277673) Problem Rheumatoid arthritis, unspecified (M06.9) Active confirmed Rheumatoid arthritis (64476803) Problem Systemic lupus erythematosus, unspecified (M32.9) Active confirmed Systemic lupus erythematosus (25962694) Problem Pain in leg, unspecified (M79.606) Active confirmed Pain in limb (31267704) Problem Fibromyalgia (M79.7) Active confirmed Fibromyalgia (224950678) VITAL SIGNS Blood pressure diastolic 72 mm Hg 07/31/2023 Height 69 in 07/31/2023 Blood pressure systolic 120 mm Hg 07/31/2023 Weight 187 lbs 07/31/2023 BMI 27.61 kg/m2 07/31/2023 Encounters Encounter Location Date Provider Diagnosis BV [facility] [address] [place] [address] 08/22/2022 Victor Hugo Wheat [facility] [address] [place] [address] [address] [place] [address] 10/26/2022 Anton Bolick Other chronic pain G89.29 [facility] [address] [place] [address] [address] [place] [address] 12/25/2022 Anton Bolick Other chronic pain G89.29 [facility] [address] [place] [address] [address] [place] [address] 2023 Anton Bolick [facility] [address] [place] [address] [address] [place] [address] 02/06/2023 Anton Bolick [facility] [address] [place] [address] [address] [place] [address] 05/11/2023 Anton Bolick [address] [facility] [address] [place] [address] 01/16/2023 Anton Bolick Pain in leg, unspecified M79.606 ; Fibromyalgia M79.7 and Other chronic pain G89.29 [address] [facility] [address] [place] [address] 2023 Anton Bolick Pain in leg, unspecified M79.606 ; Fibromyalgia M79.7 ; Other chronic pain G89.29 ; custodial (current) use of opiate analgesic Z79.891 ; Opioid dependence, uncomplicated F11.20 and Encounter for screening for other disorder Z13.89 [address] [facility] [address] [place] [address] 11/21/2022 Anton Bolick Pain in leg, unspecified M79.606 ; Fibromyalgia M79.7 and Other chronic pain G89.29 [address] [facility] [address] [place] [address] 12/20/2022 Anton Bolick Pain in leg, unspecified M79.606 ; Fibromyalgia M79.7 and Other chronic pain G89.29 [address] [facility] [address] [place] [address] 08/30/2022 Anton Bolick Pain in leg, unspecified M79.606 ; Fibromyalgia M79.7 and Other chronic pain G89.29 [address] [facility] [address] [place] [address] 09/27/2022 Anton Bolick Pain in leg, unspecified M79.606 ; Fibromyalgia M79.7 and Other chronic pain G89.29 [address] [facility] [address] [place] [address] 10/25/2022 Anton Bolick Pain in leg, unspecified M79.606 ; Fibromyalgia M79.7 ; Other chronic pain G89.29 ; 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 Z79.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 and Opioid dependence, uncomplicated F11.20 [address] [facility] [address] [address] 06/06/2023 Anton Bolick Fibromyalgia M79.7 ; Pain in leg, unspecified M79.606 and Other chronic pain G89.29 [address] [facility] [address] [place] [address] 07/04/2023 Anton Bolick Other chronic pain G89.29 and Pain in leg, unspecified M79.606 [address] [facility] [address] [place] [address] 07/31/2023 Anton Bolick Pain in leg, unspecified M79.606 ; Fibromyalgia M79.7 and Other chronic pain G89.29 [address] [facility] [address] [place] [address] 02/21/2023 Anton Bolick [address] [facility] [address] [place] [address] 03/07/2023 Anton Bolick Pain in leg, unspecified M79.606 ; Fibromyalgia M79.7 ; Other chronic pain G89.29 ; 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 Z79.891 ; Opioid dependence, uncomplicated F11.20 and Encounter for screening for other disorder Z13.89 [address] [facility] [address] [place] [address] 03/08/2023 Rod Golden Pain in leg, unspecified M79.606 ; Fibromyalgia M79.7 and Other chronic pain G89.29 [address] [facility] [address] [place] [address] 03/13/2023 Anton Bolick Pain in leg, unspecified M79.606 ; Fibromyalgia M79.7 and Other chronic pain G89.29 [address] [facility] [address] [place] [address] 04/10/2023 Anton Bolick Fibromyalgia M79.7 ; Pain in leg, unspecified M79.606 and Other chronic pain G89.29 [address] [facility] [address] [place] [address] 05/08/2023 Anton Bolick Fibromyalgia M79.7 ; Pain in leg, unspecified M79.606 ; Other chronic pain G89.29 ; custodial (current) use of opiate analgesic Z79.891 and Opioid dependence, uncomplicated F11.20 [address] [facility] [address] [place] [address] 05/09/2023 Anton Bolick [address] [facility] [address] [place] [address] 02/01/2023 Fabian Nico [address] [facility] [address] [place] [address] 02/06/2023 Anton Griffin Pain in leg, unspecified M79.606 ; Fibromyalgia M79.7 ; Other chronic pain G89.29 ; custodial (current) use of opiate analgesic Z79.891 ; Opioid dependence, uncomplicated F11.20 and Encounter for screening for other disorder Z13.89 ASSESSMENTS Encounter Date Diagnosis Assessment Notes Treatment Notes Treatment Clinical Notes 09/27/2022 Pain in leg, unspecified (ICD-10 - M79.606) 10/26/2022 Other chronic pain (ICD-10 - G89.29) 12/20/2022 [...] - M79.606) 05/08/2023 Fibromyalgia (ICD-10 - M79.7) 07/31/2023 Pain in leg, unspecified (ICD-10 - M79.606) 07/31/2023 Fibromyalgia (ICD-10 - M79.7) 07/04/2023 Other chronic pain (ICD-10 - G89.29) Mariana returns to clinic today for a follow up evaluation regarding her chronic dispersed body pain. I have reviewed the [facility] database and did not find [...] - M79.606) 06/06/2023 Fibromyalgia (ICD-10 - M79.7) 04/10/2023 Pain in leg, unspecified (ICD-10 - M79.606) 04/10/2023 Fibromyalgia (ICD-10 - M79.7) 02/06/2023 Pain in leg, unspecified (ICD-10 - M79.606) 2023 Pain in leg, unspecified (ICD-10 - M79.606) 11/21/2022 Pain in leg, unspecified (ICD-10 - M79.606) 10/25/2022 Pain in leg, unspecified (ICD-10 - M79.606) 08/30/2022 Pain in leg, unspecified (ICD-10 - M79.606) 08/30/2022 Fibromyalgia (ICD-10 - M79.7) 10/25/2022 Fibromyalgia (ICD-10 - M79.7) 11/21/2022 Fibromyalgia (ICD-10 - M79.7) 2023 Fibromyalgia (ICD-10 - M79.7) 02/06/2023 Fibromyalgia (ICD-10 - M79.7) 06/06/2023 Pain in leg, unspecified (ICD-10 - M79.606) 07/31/2023 Other chronic pain (ICD-10 - G89.29) Mariana returns to clinic today for a follow up evaluation regarding her chronic dispersed body pain. I have reviewed the [facility] database and did not find [...] call with any questions, problems or concerns. 04/10/2023 Other chronic pain (ICD-10 - G89.29) Mariana returns to clinic today for a follow up evaluation regarding her chronic knees to feet pain. I have reviewed the [facility] database and did not find [...] with any questions, problems or concerns. 03/13/2023 Fibromyalgia (ICD-10 - M79.7) 05/08/2023 Other chronic pain (ICD-10 - G89.29) Mariana returns to clinic today for a follow up evaluation regarding her chronic pain. I have reviewed the [place] [facility] database and did not find any inconsistencies. [...] - M79.7) 03/07/2023 Fibromyalgia (ICD-10 - M79.7) 01/16/2023 Fibromyalgia (ICD-10 - M79.7) 12/20/2022 Fibromyalgia (ICD-10 - M79.7) 09/27/2022 Fibromyalgia (ICD-10 - M79.7) 09/27/2022 Other chronic pain (ICD-10 - G89.29) Mariana is a 47-year-old female who returns to clinic today for follow up of chronic dispersed body pain. I have reviewed the [place] [facility] database and did not find any inconsistencies. [...] dispersed body pain. I have reviewed the [facility] database and did not find [...] dispersed body pain. I have reviewed the [facility] database and did not find [...] to feet pain. I have reviewed the [facility] database and did not find [...] her chronic pain. I have reviewed the [facility] database and we discussed her current symptoms and medications. Due to her recent procedure and assisted treatment, Mariana has been prescribed sufficient pain medication for the time being. I have obtained ROIs to [facility] and the assisted for further evaluation of her most recent treatment history. Otherwise she will follow up in a week to further discuss medication management. This treatment plan was reviewed with Mariana, and she was agreeable. Plan:1. [facility] to [facility]2. Continue Oxycodone 20mg BID3. Follow up in [...] with any questions, problems or concerns. 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 I have reviewed the [facility] database and did not find [...] dispersed body pain. I have reviewed the [facility] database and did not find [...] dispersed body pain. I have reviewed the [facility] database and did not find [...] dispersed body pain. I have reviewed the [facility] database and did not find [...] dispersed body pain. I have reviewed the [place] [facility] database and did not find any inconsistencies. [...] with any questions, problems or concerns. 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 12/20/2022 Garret Deras, am serving as a scribe to [...] Details Provider Name:Anton schmidt, 08/29/2023 02:00:00 PM, [address], [address], [place], [address], Insurance Providers Payer Name Payer Address Payer Phone Subscriber Number Group Number Insured Name Patient Relationship to Insured Coverage Start Date Coverage End Date [facility] Complete/A LEYDA [address] [address] [place] [address] [id number] Mariana Muhammad Self - patient is the insured 4 [employer] [address] [place] [address] [id number] Mariana Muhammad Self - patient is the insured 4 Medicare Part B [employer] [address] [place] [address] [id number] Mariana Muhammad Self - patient is the insured 3 [facility] [address] [address] [place], [place] [id number] Mariana Muhammad Self - patient is the insured 3 MEDICAL (GENERAL) HISTORY Medical History History ICD Code Acid reflux Anxiety Arthritis Depression Diabetes Fibromyalgia Migraine headaches Multiple sclerosis, relapsing-remitting Rheumatoid arthritis Thyroid problem Lupus PTSD (post-traumatic stress disorder) Chronic insomnia Convulsions breast reduction Surgical History Surgery Date(Month/Year) Breast reduction 05/2023 Eye surgery sinus surgery tonsillectomy cholecystectomy hysterectomy Hospitalization History Reason Date(Month/Year) ER and TCU 02/2023 MS relapse 02/2021 MS relapse 12/2020
--- OUTSIDE RECORDS SUMMARY | 2023-08-15 14:49 | XMS_ITS | Encounter Summary ---
Author Organization [facility] Address [address] [place] [address] Care Team Providers Care Counter Dish Carrier Name Role Phone Elsewhere, Pcp Primary Care Provider Unavailabl e Encounter Details Date Type Department Care Team (Late st Contact Info) Description 04/29/2014 Historical Ophthalmology [facility] Gracie Marroquin M.D. [address] [place] [address] Social History Tobacco Use Types Packs/Day Years Used Date Smoking Tobacco: Never Assessed Sex and Gender Information Value Date Recorded Sex Assigned at Female 01/25/2022 2:30 PM TRIMMER SAWYER Gender Identity Female 01/25/2022 2:30 PM TRIMMER SAWYER Sexual Orientation Straight 01/25/2022 2: 30 PM TRIMMER SAWYER documented as of this encounter Progress Notes [...] Patient had a dilated eye exam at [facility] on 04/27/14 swelling and pain of the right eye. His exam indicated a third nerve palsy and the patient was referred to Neurology at that time. She presented to [facility] later that day and was admitted [...] Exam: MRI Hd wo&w Indications: ED Acute 90130/MRI Head/? galdino santos w R CN 3/5 palsy. special orb; t ORIGINAL REPORT - 27-Apr-2014 19:39:00 [facility] EXAM: MRI Brain without and with [...] surgery. Electronically signed by: Leatha Gunderson MD [id number] 27-Apr-2014 19:39 HR: confirmed above history. syptoms x last 1 week, pain around right eye, numbness and tingling inupper right face/forehead IMPRESSION / REPORT / PLAN Consult requested by: NEURO [phone] #1 Orbital inflammation, right #2 History of [...] Pseudophakia, left CDM Reports - EYEGEN Id: [id number] Status: Fnl documented in this encounter Plan of Treatment Not on file documented as of this encounter Visit Diagnoses Not on filedocumented in this encounter Additional Health Concerns Infection Onset Date Last Indicated Resolved Time COVID19 Pending 12/17/2020 12/17/2020 01/06/2021 4 :54 AM TRIMMER SAWYER documented as of this encounter Care Teams Counter Dish Carrier Relationship Specialty Start Date End Date Elsewhere, Pcp PCP - General Family Medicine 12/19/20 documented as of this encounter
--- OUTSIDE RECORDS SUMMARY | 2023-08-15 14:49 | XMS_ITS ---
Author Organization [facility] Address [address] [place] [address] [address] [place] [address] Care Team Providers Care Photographer News Name Role Phone Laurence Mujica Primary Care Provider UnavailDavid Tripathi Unavailable [phone] Raymond Jurado DO Unavailable Unavailable Anton Griffin Unavailable [phone] ALLERGIES Allergen (clinical drug ingredient) Drug/Non Drug Allergy documented on EMR Reaction Allergy Type Onset Date Status fentanyl Fentanyl Hallucinations Drug Allergy Ac tive REASON FOR VISIT Dispersed body pain MEDICATIONS Medication SIG (Take, Route, Frequency, Duration) Notes Start Date End Date Status oxyCODONE HCl 10 MG 1 tablet as needed O rally (ok to fill 06/06/2023 to start 06/10/23) every 6 hrs for 30 days 06/06/2023 Active DULoxetine HCl 60 MG Oral for 32 Days Active Ondansetron [address] 1 TABLET (4 MG ) ON THE TONGUE EVERY 8 HOURS IF NEEDED FOR NAUSEA/VOMITING. Oral for 10 Days Active Cetirizine HCl 10 MG Oral for 30 Days Active Fluticasone Propionate 50 MCG/ACT INHALE 1-2 SPRAYS TO BOTH NOSTRILS ONCE DAILY. Nasal for 24 Days Active Eszopiclone 3 MG 1 tablet immediately before bedtime Oral Once a day for 30 days Active Dimethyl Fumarate 240 MG TAKE ONE CAPSUL E BY MOUTH TWO TIMES A DAY Oral for 30 Days Active Famotidine 40 MG Oral for 90 Days Active Atorvastatin Calcium 20 MG Oral for 90 Days Active Trulicity 0.75 MG/0.5ML Subcutaneous for 28 Days Active Omeprazole 40 MG Oral for 90 Days Active ARIPiprazole 30 MG 1 tablet Oral Once a day for 90 days Active Amantadine HCl 100 MG Oral for 30 Days Active Amphetamine-Dextroamphetam ine 15 MG 1 tablet Orally once a day A ctive SOCIAL HISTORY Tobacco Use: Social History Observation Description Date Details (start date - stop date) Former Smoker NA - 09/05/2022 Sex Assigned At : Social History Observation Description Sex Assigned At Unknown Tobacco Use/Smoking: Question Answer Notes Are you a former smoker when did you quit smoking 09/05/2022 VITAL SIGNS Height 69 in 06/06/2023 Weight 187 lbs 06/06/2023 BMI 27.61 kg/m2 06/06/2023 Blood pressure systolic 118 mm Hg 06/06/19 24 Blood pressure diastolic 72 mm Hg 024 Encounters Encounter Location Date Provider Diagnosis 104 [facility] [address] [facility] [address] [place] [address] 06/06/2023 Anton Griffin Fibromyalgia M79.7 ; Pain in leg, unspecified M79.606 and Other chronic pain G89.29 ASSESSMENTS Encounter Date Diagnosis Assessment Notes Treatment Notes Treatment Clinical Notes 06/06/2023 Fibromyalgia (ICD-10 - M79.7) 06/06/2023 Pain in leg, unspecified (ICD-10 - M79.606) 06/06/2023 Other chronic pain (ICD-10 - G89.29) Mariana returns to clinic today for a follow up evaluation regarding her chronic pain. I have reviewed the [place] [employer] [employer] database and did not find any inconsistencies. [...] with any questions, problems or concerns. 06/06/2023 Jamilah Min, Alex ceballos, am serving as a scribe [...] the decisions made during the clinic visit. PLAN OF TREATMENT Medication Medication Name Sig Start Date Stop Date Notes oxyCODONE HCl 10 MG 1 tablet as needed O rally (ok to fill 06/06/2023 to start 06/10/23) every 6 hrs for 30 days 06/06/2023 Treatment Notes Assessment Notes Other chronic pain Mariana returns to clinic today for a follow up evaluation regarding her chronic pain. I have reviewed the [facility] database and did not find any inconsistencies. [...] with any questions, problems or concerns. Other Mechelle, Alex Swift, am serving as a scribe to document [...] the decisions made during the clinic visit. Next Appt Details Follow Up: 4 Weeks, Reason: Provider Name:Anton Jayne schmidt, 08/29/2023 02:00:00 PM, [address], [address], [place], [address], Progress Notes * Examination Category Sub-Category Detail Notes Musculoskeletal Constitutional: overweight body habitus, in no acute distress Musculoskeletal: in wheelchair, sits comfortably Skin: No rashes, scars, or [...]
--- OUTSIDE RECORDS SUMMARY | 2023-08-15 14:49 | XMS_ITS | Encounter Summary ---
Author Organization [facility] Address [address] [place] [address] Care Team Providers Care Director Of Public Health Name Role Phone Elsewhere, Pcp Primary Care Provider Unavailabl e Encounter Details Date Type Department Care Team (Late st Contact Info) Description 03/25/2015 Historical Ophthalmology [facility] Jocelin Scott M.D. Social History Tobacco Use Types Packs/Day Years Used Date Smoking Tobacco: Never Assessed Sex and Gender Information Value Date Recorded Sex Assigned at Female 01/25/2022 2:30 PM SHEEP BONER Gender Identity Female 01/25/2022 2:30 PM SHEEP BONER Sexual Orientation Straight 01/25/2022 2: 30 PM SHEEP BONER documented as of this encounter Progress Notes [...] light perception) CDM Reports - EYEGEN Id: [id number] Status: Fnl documented in this encounter Plan of Treatment Not on file documented as of this encounter Visit Diagnoses Not on filedocumented in this encounter Additional Health Concerns Infection Onset Date Last Indicated Resolved Time COVID19 Pending 12/17/2020 12/17/2020 01/06/2021 4 :54 AM SHEEP BONER documented as of this encounter Care Teams Director Of Public Health Relationship Specialty Start Date End Date Elsewhere, Pcp PCP - General Family Medicine 12/19/20 documented as of this encounter
--- OUTSIDE RECORDS SUMMARY | 2023-08-15 14:49 | XMS_ITS | Encounter Summary ---
Author Organization [facility] Address [address] [place] [address] Care Team Providers Care Coffee Grinder Name Role Phone Elsewhere, Pcp Primary Care Provider Unavailabl e Reason for Visit * Reason Onset Date Comments Form Review 05/14/2023 [place] [id number] E ncounter Encounter Details Date Type Department Care Team (Latest Contact Info) Description 05/14/2023 Clinical Communication Department of Neurology in [place], [place] [address] [place] [address] Juan Jose Martin M.B., Ch.B. [address] [place] [id number] Form Review ([address] Encounter) Social History Tobacco Use Types Packs/Day Years Used Date Smoking Tobacco: Light Smoker Smokeless Tobacco: Never Comments:Smokes more when st ressed [facility] Utilities Answer Date Recorded In the [...] declined 01/25/2022 How often do you attend yarsani or lutheran serv ices? Never 01/25/2022 Do you belong to any clubs o r organizations such as yarsani groups, unions, fraternal or athletic groups, or [...] medical care, and heating? Very hard 01/25/2022 [facility] - [...] No 03/31/2023 Housing Stability Vital Sign Answer Jaedn e Recorded In the last 12 months, [...] place to sleep or slept in a intermediate (including now)? No 01/25/2022 Nutrition Answer Date [...] Sex Assigned at Female 01/25/2022 2:30 PM SPEECH PATHOLOGIST ASSISTANT Gender Identity Female 01/25/2022 2:30 PM SPEECH PATHOLOGIST ASSISTANT Sexual Orientation Straight 01/25/2022 2: 30 PM SPEECH PATHOLOGIST ASSISTANT documented as of this encounter Miscellaneous Notes * Telephone Encounter - Raisa Jaquez L.P.N. - 05/17/2023 10:16 AM CDT Form faxed back to facility and sent for scanning. * Telephone Encounter - Raisa Jaquez L.P.N. - 05/14/2023 10:11 AM CDT Form was emailed to Dr. Martin for electronic review/signature. TERMINAL GAUGER SUPERVISOR: [employer] [facility] PHONE NUMBER: [phone] [facility] Encounter INSTRUCTIONS: Fax information to [phone] documented in this encounter Plan of Treatment Not on file documented as of this encounter Visit Diagnoses Not on filedocumented in this encounter Care Teams Coffee Grinder Relationship Specialty Start Date End Date Elsewhere, Pcp PCP - General Family Medicine 12/19/20 documented as of this encounter
--- OUTSIDE RECORDS SUMMARY | 2023-08-15 14:49 | XMS_ITS | Referral Summary ---
Author Organization [facility] Address [address] [place] [address] Care Team Providers Care Senior Data Integration Developer Name Role Phone Elsewhere, Pcp Primary Care Provider Unavailabl e Source Comments Patient records contain information from all sites at [facility]. For routine questions regarding patient records, call [phone] during business hours, M-F 8:00 AM - 5:00 PM Central Time. Record requests for emergency care only can be directed to [phone] at any time.[facility] Allergies Active Allergy Reactions Criticality Noted Date [...] Given: Not Answered Comments:Smokes more when stressed [facility] Utilities Answer Date Recorded In the past 12 months has e [employer], gas, oil, or water [employer] threatened to shut off services in your [...] declined 01/25/2022 How often do you attend sikhism or worship serv ices? Never 01/25/2022 Do you belong to any clubs o r organizations such as sikhism groups, unions, fraternal or athletic groups, or [...] medical care, and heating? Very hard 01/25/2022 [facility] [...] Sex Assigned at Female 01/25/2022 2:30 PM SERVICES DELIVERY DRIVER Gender Identity Female 01/25/2022 2:30 PM SERVICES DELIVERY DRIVER Sexual Orientation Straight 01/25/2022 2: 30 PM SERVICES DELIVERY DRIVER Last Filed Vital Signs Vital Sign Reading Time Taken Comments Blood Pressure 96/66 04/24/2023 9:27 AM CDT Pulse 73 04/24/2023 9:27 AM CDT Temperature 36.6 ??C (97.9 ??F) 12/19/2020 6:19 AM CS T Respiratory Rate 16 12/19/2020 6:19 AM SERVICES DELIVERY DRIVER Oxygen Saturation 94% 12/19/2020 6:19 AM SERVICES DELIVERY DRIVER Inhaled Oxygen Concentration - - Weight 104 kg (228 lb 13.4 oz) 12/28/2020 8:51 A M SERVICES DELIVERY DRIVER Height 175.3 cm (5' 9) 12/17/2020 10:53 PM SERVICES DELIVERY DRIVER Body Mass Index 33.79 12/17/2020 10:53 PM SERVICES DELIVERY DRIVER Plan of Treatment Not on file Medical Devices Implanted Type Area Production Team Member Device Identifier Shelf Expiration Date Model / [...] HORMONE-SENSITIVE (S-TSH), S Routine 03/11/2023 4:45 AM SERVICES DELIVERY DRIVER EXTI LIPID PANEL W REFLEX MEASURED LDL Routine 11/30/2022 4:09 PM CDT BI BREAST SCREENING BILATERAL WITH TOMOSYNTHESIS Routine 06/07/2022 9:19 AM CDT OPHTHALMOLOGY IMAGE EXAM Routine 03/26/2015 12:00 AM SERVICES DELIVERY DRIVER CHRONIC VIRAL HEPATITIS PROFILE Routine 04/28/2014 6:41 PM CDT HIV-1/-2 AG AND AB SCREEN Routine 04/28/2014 6:41 PM CDT HEMOGLOBIN A1C, B Routine 04/27/2014 1:2 2 PM CDT from Last 3 Months or Most Recently Relevant to Health Maintenance Results * OPHTHALMOLOGY IMAGE EXAM (03/26/2015 12:00 AM SERVICES DELIVERY DRIVER) Anatomical Region Laterality Modality Other 03/26/2015 Addenda Addendum by ProviderJames M.D. on 03/26/2015 12:00 AM SERVICES DELIVERY DRIVER OPH^^^MCR Eyes Visual Landrum 03/26/2015 00:00:00 Historical [...] IOLOGY - BLOOD ORDERABLES Performing Organization Address City/Va Hospital/ZIP Co de Phone Number [facility] [address] * Chronic Hepatitis Profile (04/28/2014 6:41 [...] [facility] HCV Ab, S Negative Negative [facility] Comment:Fmkdpw-mj-nnvloo rat io is <1.00. 04/28/2014 6:41 PM CDT 04/28/2014 6:41 PM CDT Cirilo Mendez M.D. LAB MICROB IOLOGY - BLOOD ORDERABLES Performing Organization Address City/[facility] Hospital/[facility] Co de Phone Number [facility] [address] * Hemoglobin A1c (04/27/2014 1:22 PM CDT) Hemoglobin A1c, B 5.1 4.0 - 6.0 % [facility] 04/27/2014 1:22 PM CDT 04/27/2014 1:22 PM CDT Db Sousa M.D., M.A. LAB BLOOD ADD -ON [facility] [address] from Last 3 Months or Most Recently Relevant to Health Maintenance Advance Directives For more information, please contact: [phone] * Full Code (Latest Code Status on File) Date Activated Date Inactivated Comments 12/18/2020 1:35 AM 12/19/2020 3:25 PM Question Answer Comments Full Code: Discussed Care Teams Senior Data Integration Developer Relationship Specialty Start Date End Date Elsewhere, Pcp PCP - General Family Medicine 12/19/20
--- OUTSIDE RECORDS SUMMARY | 2023-08-15 14:49 | XMS_ITS | Encounter Summary ---
Author Organization [facility] Address [address] [place] [address] Care Team Providers Care Date Night Sitter Name Role Phone Elsewhere, Pcp Primary Care Provider Unavailabl e Encounter Details Date Type Department Care Team (Late st Contact Info) Description 03/26/2015 Historical Ophthalmology [facility] Adolph De Santiago M.D., Ph.D. [address] [place] [address] Social History Tobacco Use Types Packs/Day Years Used Date Smoking Tobacco: Never Assessed Sex and Gender Information Value Date Recorded Sex Assigned at Female 01/25/2022 2:30 PM TICKET SELLER Gender Identity Female 01/25/2022 2:30 PM TICKET SELLER Sexual Orientation Straight 01/25/2022 2: 30 PM TICKET SELLER documented as of this encounter Progress Notes [...] perception) #8 new optic perineuritis, right [facility] Reports - EYEGEN Id: [id number] Status: Fnl documented in this encounter Plan of Treatment Not on file documented as of this encounter Visit Diagnoses Not on filedocumented in this encounter Additional Health Concerns Infection Onset Date Last Indicated Resolved Time COVID19 Pending 12/17/2020 12/17/2020 01/06/2021 4 :54 AM TICKET SELLER documented as of this encounter Care Teams Date Night Sitter Relationship Specialty Start Date End Date Elsewhere, Pcp PCP - General Family Medicine 12/19/20 documented as of this encounter
--- OUTSIDE RECORDS SUMMARY | 2023-08-15 14:49 | XMS_ITS | Encounter Summary ---
Author Organization [facility] Address [address] [place] [address] Care Team Providers Care Gas Operation Manager Name Role Phone Elsewhere, Pcp Primary Care Provider Unavailabl e Encounter Details Date Type Department Care Team (Late st Contact Info) Description 12/15/2014 Historical Ophthalmology [facility] Adolph De Santiago M.D., Ph.D. [address] [place] [address] Social History Tobacco Use Types Packs/Day Years Used Date Smoking Tobacco: Never Assessed Sex and Gender Information Value Date Recorded Sex Assigned at Female 01/25/2022 2:30 PM GROUNDS KEEPER Gender Identity Female 01/25/2022 2:30 PM GROUNDS KEEPER Sexual Orientation Straight 01/25/2022 2: 30 PM GROUNDS KEEPER documented as of this encounter Progress Notes [...] (remains no light perception) [facility] Reports - [employer] Id: [id number] Status: Fnl documented in this encounter Plan of Treatment Not on file documented as of this encounter Visit Diagnoses Not on filedocumented in this encounter Additional Health Concerns Infection Onset Date Last Indicated Resolved Time COVID19 Pending 12/17/2020 12/17/2020 01/06/2021 4 :54 AM GROUNDS KEEPER documented as of this encounter Care Teams Gas Operation Manager Relationship Specialty Start Date End Date Elsewhere, Pcp PCP - General Family Medicine 12/19/20 documented as of this encounter
--- OUTSIDE RECORDS SUMMARY | 2023-08-15 14:49 | XMS_ITS | Clinical Summary ---
Author Organization [facility] Address [address] [place] [address] Care Team Providers Care Second Time Worker Name Role Phone Elsewhere, Pcp Primary Care Provider Unavailabl e Source Comments Patient records contain information from all sites at [facility]. For routine questions regarding patient records, call [phone] during business hours, M-F 8:00 AM - 5:00 PM Central Time. Record requests for emergency care only can be directed to [phone] at any time.[facility] Allergies Active Allergy Reactions Criticality Noted [...] Given: Not Answered Comments:Smokes more when stressed [facility] Utilities Answer Date Recorded In the past 12 months has e [employer] book, gas, oil, or water [employer] threatened to shut off services in your [...] declined 01/25/2022 How often do you attend sikh or methodist serv ices? Never 01/25/2022 Do you belong to any clubs o r organizations such as sikh groups, unions, fraternal or athletic groups, or [...] medical care, and heating? Very hard 01/25/2022 [facility] - [...] Sex Assigned at Female 01/25/2022 2:30 PM INDUSTRY ANALYST Gender Identity Female 01/25/2022 2:30 PM INDUSTRY ANALYST Sexual Orientation Straight 01/25/2022 2: 30 PM INDUSTRY ANALYST Last Filed Vital Signs Vital Sign Reading Time Taken Comments Blood Pressure 96/66 04/24/2023 9:27 AM CDT Pulse 73 04/24/2023 9:27 AM CDT Temperature 36.6 ??C (97.9 ??F) 12/19/2020 6:19 AM CS T Respiratory Rate 16 12/19/2020 6:19 AM INDUSTRY ANALYST Oxygen Saturation 94% 12/19/2020 6:19 AM INDUSTRY ANALYST Inhaled Oxygen Concentration - - Weight 104 kg (228 lb 13.4 oz) 12/28/2020 8:51 A M INDUSTRY ANALYST Height 175.3 cm (5' 9) 12/17/2020 10:53 PM INDUSTRY ANALYST Body Mass Index 33.79 12/17/2020 10:53 PM INDUSTRY ANALYST Plan of Treatment Health Maintenance Due Date [...] 05/31/2021 06/01/2011, 06/11/1991 COVID-19 Vaccine ( - 2022- season) 2022 11/24/2021, 12/15/2020, 09/27/2020 Depression Screening [...] this topic Medical Devices Implanted Type Area Routeman Device Identifier Shelf Expiration Date Model / [...] HORMONE-SENSITIVE (S-TSH), S Routine 03/11/2023 4:45 AM INDUSTRY ANALYST EXTI LIPID PANEL W REFLEX MEASURED LDL Routine 11/30/2022 4:09 PM CDT BI BREAST SCREENING BILATERAL WITH TOMOSYNTHESIS Routine 06/07/2022 9:19 AM CDT OPHTHALMOLOGY IMAGE EXAM Routine 03/26/2015 12:00 AM INDUSTRY ANALYST CHRONIC VIRAL HEPATITIS PROFILE Routine 04/28/2014 6:41 PM CDT HIV-1/-2 AG AND AB SCREEN Routine 04/28/2014 6:41 PM CDT HEMOGLOBIN A1C, B Routine 04/27/2014 1:2 2 PM CDT from Last 3 Months or Most Recently Relevant to Health Maintenance Results * OPHTHALMOLOGY IMAGE EXAM (03/26/2015 12:00 AM INDUSTRY ANALYST) Anatomical Region Laterality Modality Other 03/26/2015 Addenda Addendum by ProviderJames M.D. on 03/26/2015 12:00 AM INDUSTRY ANALYST OPH^^^MCR Eyes Visual Landrum 03/26/2015 00:00:00 Historical Provider IMG NON RAD IMAGING PROCEDURES * HIV-1/-2 Ag and Ab Screen (04/28/2014 6:41 PM CDT) Pathologist [facility] HIV-1/-2 Ag and Ab Screen, S Negative Negative [facility] Comment: Negative result does not rule out HIV infection. If ? acute HIV infection is suspected in a high-risk ? individual, submit plasma specimen for HIV-1 RNA ? quantification test (HIVQU) and/or HIV-2 DNA/RNA ? test (FHV2Q). ? 04/28/2014 6:41 PM CDT 04/28/2014 6:41 PM CDT Cirilo Mendez M.D. LAB MICROB IOLOGY - BLOOD ORDERABLES Performing Organization Address City/[facility] Co de Phone Number [facility] [address] * Chronic Hepatitis Profile (04/28/2014 6:41 PM CDT) HBs Antigen, S Negative Negative [facility] HBc Total Ab, S Negative Negative [facility] HBs Antibody,S Negative Unvaccinated : Negative; Vaccinated: Positive [facility] Comment:Patient is presumed to be not immune to infection with HBV. HBs Antibody, Quantitative, S <5.0 Unvaccinated : <5.0; Vaccinated: >=12.0 MIU/ML [facility] HCV Ab, S Negative Negative [facility] Comment:Jsvlec-rv-lseamd rat io is <1.00. 04/28/2014 6:41 PM CDT 04/28/2014 6:41 PM CDT Cirilo Mendez M.D. LAB MICROB IOLOGY - BLOOD ORDERABLES Performing Organization Address [facility] Co de Phone Number [facility] [address] * Hemoglobin A1c (04/27/2014 1:22 PM CDT) Hemoglobin A1c, B 5.1 4.0 - 6.0 % [facility] 04/27/2014 1:22 PM CDT 04/27/2014 1:22 PM CDT Db Sousa M.D., M.A. LAB BLOOD ADD -ON [facility] [address] from Last 3 Months or Most Recently Relevant to Health Maintenance Advance Directives For more information, please contact: [phone] * Full Code (Latest Code Status on File) Date Activated Date Inactivated Comments 12/18/2020 1:35 AM 12/19/2020 3:25 PM Question Answer Comments Full Code: Discussed Care Teams Second Time Worker Relationship Specialty Start Date End Date Elsewhere, Pcp PCP - General Family Medicine 12/19/20
--- OUTSIDE RECORDS SUMMARY | 2023-08-15 14:50 | XMS_ITS | Clinical Summary ---
Author Organization [facility] Address [address] [place] [address] Care Team Providers Care Permit Technician Name Role Phone Roddy Trevino Primary Care Provider [phone] Allergies Active Allergy Reactions Criticality Noted Date [...] (198 lb 9.6 oz) 04/10/2012 9:25 AM EXTRUSION PRESS ADJUSTER Height 171 cm (5' 7.32) 04/10/2012 9:2 5 AM EXTRUSION PRESS ADJUSTER Body Mass Index 30.81 04/10/2012 9:25 AM EXTRUSION PRESS ADJUSTER Plan of Treatment Not on file Care Teams Permit Technician Relationship Specialty Start Date End Date Roddy Trevino PCP - General 12/14/10
--- OUTSIDE RECORDS SUMMARY | 2023-08-15 14:50 | XMS_ITS | Referral Summary ---
Author Organization [place] Address [address] [place] [address] Care Team Providers Care Confectionery Cooker Name Role Phone Roddy Trevino Primary Care Provider [phone] Allergies Active Allergy Reactions Criticality Noted Date [...] (198 lb 9.6 oz) 04/10/2012 9:25 AM STUDY ABROAD ADVISOR Height 171 cm (5' 7.32) 04/10/2012 9:2 5 AM STUDY ABROAD ADVISOR Body Mass Index 30.81 04/10/2012 9:25 AM STUDY ABROAD ADVISOR Plan of Treatment Not on file Care Teams Confectionery Cooker Relationship Specialty Start Date End Date Roddy Trevino PCP - General 12/14/10
--- OUTSIDE RECORDS SUMMARY | 2023-08-15 14:50 | XMS_ITS | Clinical Summary ---
Author Organization [facility] Address [place], [place] [address] Care Team Providers Care Salesperson Neckties Name Role Phone Laurence Mujica Primary Care Provider [phone] Yumiko Garcia FIRER WATERTENDER Unavailable Unavailable Nga White MD Unavailable [phone] [facility] [place] Unavailable [facility] [place] Unavailable Allergies Active Allergy Reactions Criticality Noted [...] High 07/23/2007 Morphine Chest Pain,Palpitations 11/20/2012 Tolerated [place] 04/21/2014 And chest pains Mushroom Anaphylaxis High [...] bladder disorder,Multiple sclerosis (HC) As directed. 14 Salvadorean straight cath for self cath up to [...] bed. Length of need 99 months. 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 Was seen at [place] by neurology and rheumatology, apparently had characteristic MRI with demyelinating lesions but numerous lumbar punctures have not demonstrated CSF protein abnormalities. Has been seen at [facility] neurology clinic. Currently following with Dr. Shepherd at [facility]. Started on Tysabri (monoclonal baldo) infusions in 2007. Continues to have progressive symptoms. 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 12/06/15--Neurologist is Dr. Ab Whittington- location [facility] ext [phone]. Currently being [...] 02/25/2021 02/25/2021 Overview: Overview: Created by Conversion [facility] Annotation: May 09 2011 2:19PM - [...] Encounters Date Type Department Care Team Description 08/13/2023 12:00 PM CDT Home Care Visit [facility] [address] [place] [phone] Socorro Barajas LPN LPN - HOME VISIT 08/10/2023 12:00 PM CDT Home Care Visit [facility] [address] [place] [phone] Ivette Martinez RN SN - HOME VISIT 08/10/[address] [address] Laurence Mujica, [place] Questions 08/10/2023 Home Care Visit [facility] [address] [place] [phone] Luisa Velasquez, CALLUM CARE COORDINATION 08/07/2023 10:00 AM CDT Home Care Visit [facility] [address] [place] [phone] Denisse Cueto LISW MISSILE CONTROL PILOT - INITIAL ASSESSMENT 08/07/2023 Home Care Visit [facility] [address] [place] [phone] Luisa Velasquez, RN SN - TELEHEALTH VISIT 08/06/2023 1:30 PM CDT Home Care Visit [facility] [address] [place] [phone] Socorro Barajas LPN LPN - HOME VISIT 08/04/2023 Home Care Visit [facility] [address] [place] [phone] Luisa Velasquez, CALLUM SN - MISSED VISIT 08/03/2023 12:40 PM CDT - 08/03/2023 3:23 PM CDT Emergency [facility] [address] [place] [address] Lane Barahona PA Open wound of left chest wall, subsequent encounter (Primary Dx); Chronic suprapubic catheter (HC) Discharge Disposition: Home Self Care 08/03/2023 Home Care Visit [facility] [address] [place] [address] Denisse Cueto LISW MISSILE CONTROL PILOT - CASE COMMUNICATION 08/03/2023 Orders [facility] [address] [place] [address] Laurence Mujica PA <No scans attached> 08/03/2023 Travel 08/03/2023 Home Care Visit [facility] [address] [place] [phone] Luisa Velasquez, RN CARE COORDINATION 08/02/2023 4:30 PM CDT Home Care Visit [facility] [address] [place] [phone] Josi Sosa, RN SN - PRN HOME VISIT 08/02/2023 10:30 AM CDT - 08/02/2023 11:59 PM CDT Hospital Encounter [facility] [address] [place] [address] Left breast abscess 08/02/2023 Telephone [facility] [address], [place] [address] Josi Sosa, pipe threading machine operator (Patient sent to ED.) 08/02/2023 Home Care Visit [facility] [address] [place] [phone] Luisa Velasquez, RN CARE COORDINATION 08/02/2023 Travel 08/01/2023 Home Care Visit [facility] [address] [place] [phone] Luisa Velasquez, CALLUM SN - TELEHEALTH VISIT 07/30/2023 3:30 PM CDT Home Care Visit [facility] [address] [place] [phone] Josi Sosa, CALLUM SN - HOME VISIT 07/30/2023 Home Care Visit [facility] [address] [place] [phone] Luisa Velasquez, CALLUM CARE COORDINATION 07/28/[address] [phone] Laurence Mujica PA Refill Request (Linzess) 07/27/2023 1:00 PM CDT Home Care Visit [facility] [address] [place] [phone] Ievtte Martinez RN SN - HOME VISIT 07/27/2023 Home Care Visit [place] [address] [place] [phone] Luisa Velasquez RN CARE COORDINATION 07/27/2023 Telephone [facility] [address] [place] [address] Luisa Velasquez RN Home Care 07/26/2023 Telephone [facility] [address] [place] [address] Laurence Mujica PA Questions (Catheter ) 07/26/2023 Home Care Visit [facility] [address] [place] [phone] Luisa Velasquez RN CARE COORDINATION 07/23/2023 12:00 PM CDT Home Care Visit [place] [address] [place] [phone] Radha Bob, CALLUM SN - LONG VISIT (>90 MINUTES) 07/23/2023 Home Care Visit [place] [address] [place] [phone] Luisa Velasquez, CALLUM CARE COORDINATION 07/20/2023 12:00 PM CDT Home Care Visit [facility] [address] [place] [address] Socorro Barajas LPN UPKEEP MECHANIC - HOME VISIT 07/19/2023 Telephone [facility] [address] [facility] [place] [address] Socorro Barajas LPN Breast Problem (Wound on (L) breast) 07/16/2023 12:00 PM CDT Home Care Visit [facility] [address] [place] [address] Socorro Barajas LPN UPKEEP MECHANIC - HOME VISIT 07/13/2023 1:00 PM CDT Home Care Visit [facility] [address] [place] [phone] Orlando Escobar RN SN - WOUND HOME VISIT 07/12/2023 Transcribe Orders [facility] [address] [place] [address] Sole Noel MD 07/09/2023 12:50 PM CDT Office [facility] [address] [place] [address] Laurence Mujica PA Derm Problem (Check breast-has a 'hole with yellow drainage'-also needs cream for stomach) 07/09/2023 9:00 AM CDT Home Care Visit [facility] [address] [place] [address] Radha Bob, RN SN - HOME VISIT 07/09/2023 Orders Only [facility] [address] [place] [address] Laurence Mujica PA <No scans attached> 07/08/2023 Travel 07/07/2023 10:30 AM CDT Home Care Visit [facility] [address] [place] [phone] Radha Bob, RN SN - LONG VISIT (>90 MINUTES) 07/06/2023 1:00 PM CDT Home Care Visit [facility] [address] [place] [address], [place] [address] Ivette Martinez, RN SN - WOUND HOME VISIT 07/06/2023 Home Care Visit [facility] [address] [place] [address], [place] [address] Maria Victoria Mcintosh, PT PT - DISCIPLINE DISCHARGE 07/06/2023 Orders Only [facility] [address] [place] [address] Laurence Mujica PA <No scans attached> 07/06/2023 Home Care Visit [facility] [address] [place] [address], [place] [address] Maria Victoria Mcintosh, PT CARE COORDINATION 07/05/2023 Home Care Visit [place] [address] [place] [address], [place] [address] Maria Victoria Mcintosh, PT PT - MISSED VISIT 07/04/2023 8:00 AM CDT Home Care Visit [place] [address] [place] [address], [place] [address] Orlando Escobar, RN SN - OASIS RECERTIFICATION 07/04/2023 Plan of Care Documentation [address] [phone] 07/03/2023 12:00 PM CDT Home Care Visit [place] [address] [place] [phone] Luisa Burnett, PT PT - HOME VISIT 07/02/2023 8:30 AM CDT Home Care Visit [address] [place] [address] Radha Bob, RN SN - WOUND HOME VISIT 07/01/2023 8:30 AM CDT Home Care Visit [place] [address] [place] [phone] Radha Bob, RN SN - WOUND HOME VISIT 06/30/2023 12:00 PM CDT Home Care Visit [facility] [address] [place] [phone] Radha Bob, RN SN - WOUND HOME VISIT 06/29/2023 9:00 AM CDT Home Care Visit [facility] [address] [place] [phone] Orlando Escobar, RN SN - WOUND HOME VISIT 06/28/2023 10:15 AM CDT Home Care Visit [facility] [address] [place] [phone] Luisa Burnett, PT PT - WOUND HOME VISIT 06/28/[address] [address] Luisa Burnett, PT Home Care 06/27/2023 12:30 PM CDT Home Care Visit [facility] [address] [place] [phone] Orlando Escobar, RN SN - WOUND HOME VISIT 06/26/2023 10:15 AM CDT Home Care Visit [facility] [address] [place] [phone] Luisa Burnett, PT PT - WOUND HOME VISIT 06/25/2023 10:30 AM CDT Home Care Visit [facility] [address] [place] [phone] Orlando Escobar, RN SN - WOUND HOME VISIT 06/24/2023 11:00 AM CDT Home Care Visit [facility] [address] [place] [phone] Radha Bob, RN SN - HOME VISIT 06/23/2023 10:30 AM CDT Home Care Visit [facility] [address] [place] [phone] Radha Bob, RN SN - HOME VISIT 06/22/2023 10:30 AM CDT Home Care Visit [facility] [address] [place] [address] Orlando Escobar, RN SN - WOUND HOME VISIT 06/21/2023 11:30 AM CDT Office Visit [facility] [address] [facility] [address] [place] [address] Tata Cruz PA Surgical Followup (Check open wound on her left breast S/P Bilateral Breast Reduction with free nipple graft on 05/09/23 with Yazmin) 06/21/2023 10:30 AM CDT Home Care Visit [facility] [address] [place] [address] Luisa Burnett, PT PT - MISSED VISIT 06/21/2023 Travel 06/21/2023 Telephone [facility] [address] [phone] Alfredo Arce MD Post-op Pain/problem (Wound on left breast) 06/20/2023 12:00 PM CDT Home Care Visit [facility] [address] [place] [address] Orlando Escobar, RN SN - WOUND HOME VISIT 06/20/2023 4:00 AM CDT Home Care Visit [facility] [address] [place] [address] Laurence Clemons RN SN - WOUND/OSTOMY CHART CONSULT 06/20/2023 Travel 06/20/2023 Telephone [facility] [address] [place] [address] Laurence Clemons, pipe threading machine operator (Wound care plan - requesting wound vac) 06/19/2023 1:30 PM CDT Home Care Visit [facility] [address] [place] [address] Luisa Burnett, PT PT - MISSED VISIT 06/19/2023 10:48 AM CDT - 06/19/2023 2:12 PM CDT Emergency [facility] [address] [place] [address] Alison Elmore NP Breast abscess (Primary Dx); Cellulitis, unspecified cellulitis site; Wound dehiscence Discharge Disposition: Home Self Care 06/19/2023 Telephone [facility] [address] [phone] Alfredo Arce MD Appointment Reminder; Appointment Request 06/19/2023 Travel 06/19/2023 Nurse Triage [facility] [address] [place] [address] Laurence Mujica PA Home Care (Pain ) 06/19/2023 Nurse Triage [facility] [address] [place] [address] Laurence Mujica PA Pain In Breast 06/18/2023 5:00 PM CDT Home Care Visit [facility] [address] [place] [phone] Radha Bob, CALLUM SN - WOUND HOME VISIT 06/18/2023 Home Care Visit [address] [phone] Radha Bbo, RN CARE COORDINATION 06/17/2023 8:00 AM CDT Home Care Visit [facility] [address] [place] [phone] Radha Bob, RN SN - WOUND HOME VISIT 06/16/2023 3:30 PM CDT Home Care Visit [facility] [address] [place] [phone] Radha Bob, RN SN - WOUND HOME VISIT 06/15/2023 1:15 PM CDT Home Care Visit [place] [address] [place] [phone] Socorro Barajas LPN UPKEEP MECHANIC - HOME VISIT 06/14/2023 12:30 PM CDT Home Care Visit [address] [place] [address] Orlando Escobar, RN SN - HOME VISIT 06/14/2023 10:30 AM CDT Home Care Visit [facility] [address] [place] [address] Luisa Burnett, PT PT - HOME VISIT 06/13/2023 12:30 PM CDT Home Care Visit [facility] [address] [place] [address] Socorro Barajas LPN UPKEEP MECHANIC - MISSED VISIT 06/13/2023 Home Care Visit [facility] [address] [place] [address] Orlando Escobar, RN CARE COORDINATION 06/12/2023 9:00 AM CDT Home Care Visit [facility] [address] [place] [address] Luisa Burnett, PT PT - HOME VISIT 06/12/2023 Home Care Visit [facility] [address] [place] [address] Orlando Escobar, RN SN - MISSED VISIT 06/12/2023 Telephone [facility] [address] [place] [address] Laurence Mujica PA Form (Jury Duty) 06/11/2023 4:00 PM CDT Home Care Visit [facility] [address] [place] [address] Radha Bob RN SN - WOUND HOME VISIT 06/11/2023 Telephone [facility] [address] [place] [address] Laurence Mujica PA Letter 06/10/2023 9:00 AM CDT Home Care Visit [facility] [address] [place] [address] Orlando Escobar, RN SN - WOUND HOME VISIT 06/09/2023 9:00 AM CDT Home Care Visit [facility] [address] [place] [address] Orlando Escobar, RN SN - WOUND HOME VISIT 06/08/2023 1:30 PM CDT Home Care Visit [facility] [address] [place] [address] Laurence Clemons RN SN - WOUND/OSTOMY CHART CONSULT 06/08/2023 12:00 PM CDT Home Care Visit [facility] [address] [place] [address] Orlando Escobar, RN SN - INITIAL ASSESSMENT 06/07/2023 4:00 PM CDT Home Care Visit [facility] [address] [place] [address] Luisa Burnett, PT PT - OASIS RESUMPTION OF CARE 06/07/2023 Telephone [facility] [address] [place] [address] Luisa Burnett, PT Home Care 06/07/2023 Telephone [facility] [address] [place] [address] Luisa Burnett, PT Home Care 06/06/2023 Patient Outreach [address] [address] Felicita Dickinson, RN Primary RN Care Management; Hospital F/U (LACE 80) 06/05/2023 Travel 06/04/2023 Travel 06/04/2023 Telephone [facility] [address] [phone] Alfredo Arce MD Surgical Followup (Wound under left breast/S/p: Bilateral Breast Reduction/DOS: 05/09/2023/Surgeon: Alfredo Arce//) 06/03/2023 Home Care Visit [facility] [address] [place] [address] Luisa Burnett, PT PT - OASIS TRANSFER 06/01/2023 8:28 PM CDT - 06/05/2023 12:30 PM CDT Hospital Encounter [facility] [address] [place] [address] Lane Barahona PA Drevlow, Kris [place], DO [...] 05/30/2023 12:00 PM CDT Home Care Visit [place] [address] [place] [address] Luisa Burnett PT PT - HOME VISIT 05/30/2023 Refill [facility] [address] [place] [address] Laurence Mujica PA Refill Request (Ondansetron) 05/28/2023 12:30 PM CDT Home Care Visit [address] [address] Josi Tolentino RN SN - HOME VISIT 05/28/2023 8:56 AM CDT - 05/28/2023 11:05 AM CDT Emergency [facility] [address] [place] [address] Darryl Hardy MD Postoperative hematoma of skin following non-dermatologic procedure (Primary Dx) Discharge Disposition: Home Self Care 05/28/2023 Travel 05/25/2023 Nurse Triage [facility] [address] [phone] Alfredo Arce MD Post-op 05/23/2023 12:00 PM CDT Home Care Visit [facility] [address] [place] [address] Luisa Burnett, PT PT - HOME VISIT 05/22/2023 1:00 PM CDT Home Care Visit [facility] [address] [place] [address] Josi Tolentino RN SN - HOME VISIT 05/21/2023 1:00 PM CDT Office Visit [facility] [address] [facility] [address] [place] [address] Alfredo Arce MD Surgical Followup (Bilateral Breast Reduction with free nipple graft, DOS: 05/09/23, w/ Dr. Arce) 05/21/2023 3:00 AM CDT Home Care Visit [facility] [address] [place] [address] Luisa Burnett, PT PT - MISSED VISIT 05/21/2023 Travel 05/17/2023 11:00 AM CDT Home Care Visit [facility] [address] [place] [address] Socorro Barajas LPN UPKEEP MECHANIC - HOME VISIT 05/17/2023 3:00 AM CDT Home Care Visit [facility] [address] [place] [address] Luisa Burnett, PT PT - MISSED VISIT 05/17/2023 Travel 05/17/2023 Telephone [facility] [address] [address] Alfredo Arce MD Hospital F/U (Sutures/itchiness. ) 05/16/2023 1:15 PM CDT Home Care Visit [facility] [address] [place] [address] Luisa Burnett, PT PT - MISSED VISIT from Last 3 Months Immunizations Name Administration Dates Next Due COVID-19 vaccine (TrumpITBio NTDeliverCareRx 30mcg/0.3mL) 12YO+ BIVALENT PF, MDV 11/24/2021 COVID-19 [...] Sign Reading Time Taken Comments Blood Pressure 90/58 08/13/2023 12:07 PM CDT Pulse 84 08/13/2023 12:07 PM CDT Temperature 36.2 ??C (97.1 ??F) 08/13/2023 12:07 PM C DT Respiratory Rate 16 08/13/2023 12:07 PM CDT Oxygen Saturation 97% 08/13/2023 12:07 PM CDT Inhaled Oxygen Concentration - - Weight 85.4 kg (188 lb 4.8 oz) 08/03/2023 12:48 PM CDT Height 172.7 cm (5' 8) 08/03/2023 12:48 PM CDT Body Mass Index 28.63 08/03/2023 12:48 PM CDT Plan of Treatment Upcoming Encounters Date Type Department Care Team (Late st Contact Info) Description 08/16/2023 Home Care Visit [address] [address] Luisa Vealsquez, RN [address] [place] [address] 08/16/2023 10:30 AM CDT Nurse/Clinic Staff Only [address] [phone] 08/16/2023 11:00 AM CDT Office Visit [address] [address] Nga White MD [address] [place] [address] 08/17/2023 4:00 AM CDT Home Care Visit [facility] [address] [place] [phone] 08/20/2023 4:00 AM CDT Home Care Visit [facility] [address] [place] [address] 08/24/2023 4:00 AM CDT Home Care Visit [facility] [address] [place] [address] 08/27/2023 4:00 AM CDT Home Care Visit [facility] [address] [place] [address] 08/31/2023 4:00 AM CDT Appointment [facility] [address] [place] [address] Health Maintenance Due Date Last Done Comments [...] 08/03/2023 2:46 PM CDT URINALYSIS MICROSCOPIC STAT 2:23 PM CDT UA W/ SEDIMENT EXAM [...] 06/02/2023 11:32 AM CDT SCAN-CARDIAC STRIP 06/02/2023 10 :13 AM CDT GLUCOSE METER Routine 06/02/2023 9:36 AM CDT CREATININE,ISTAT Timed 06/02/2023 6:34 AM CDT WHITE BLOOD COUNT Early AM 06/02/2023 6:2 3 AM CDT LACTATE VENOUS Timed 06/02/2023 6:23 AM CDT SCAN-CARDIAC STRIP 06/02/2023 3: 50 AM CDT HEMOGLOBIN STAT 06/02/2023 1:07 AM CDT LACTATE VENOUS STAT 06/02/2023 12:07 AM CDT URINE CULTURE MALOU 06/01/2023 10:08 PM CDT URINALYSIS MICROSCOPIC STAT 10:08 PM CDT UA W/ SEDIMENT EXAM [...] PM CDT ED FAST ULTRASOUND Routine 05/28/2023 10 :05 AM CDT MUSCULOSKELETAL ULTRASOUND Routine 05/28/2023 10:00 AM CDT TYPE & SCREEN STAT 05/28/2023 9:28 AM CDT RED CELL MORPHOLOGY STAT 05/28/2023 9 :28 AM CDT PLATELET ESTIMATE STAT 05/28/2023 9:2 8 AM CDT MANUAL DIFFERENTIAL STAT 05/28/2023 9 :28 AM CDT CBC WITH AUTO DIFFERENTIAL STAT 05/28/2023 9:28 AM CDT HEPATIC FUNCTION PANEL STAT 9:28 AM CDT PROTIME-INR STAT 05/28/2023 9:28 AM CDT CBC WITH AUTO DIFFERENTIAL STAT 05/28/2023 9:28 AM CDT BASIC METABOLIC PANEL STAT 05/28/2023 9:28 AM CDT LIPID PANEL W REFLEX MEASURED [...] ??Pain and infection ??Alternatives discussed: ??No treatment [place] protocol: ??Procedure explained and questions answered to [...] 0-2, None Seen /HPF 08/03/2023 2:33 PM CDT [facility] WBC 0-2 0-2, 3-5, None Seen /HPF 08/03/2023 2:33 PM [facility] BACTERIA Rare None Seen, Rare, Few Bacteria/ HPF 08/03/2023 2:33 PM CDT [facility] EPITHELIAL CELLS Few None Seen, Few Epi/HPF 08/03/2023 2:33 PM [facility] Urine URINE SPECIMEN / Unknown Non-Blood / Unknown 08/03/2023 2:23 PM CDT 08/03/2023 2:[address] BERUMEN URINE [facility] [address] [place] [address] * (ABNORMAL) URINALYSIS W REFLEX MICROSCOPIC IF POSITIVE (08/03/2023 2:23 PM CDT) Only the most recent of2 resultswithin the time period is included. COLOR Yellow Yellow Color 08/03/2023 2:30 PM [facility] CLARITY Clear Clear Clarity 08/03/2023 2:30 PM [facility] SPECIFIC GRAVITY,URINE <=1.005(A) 1.010, 1.015, 1.020, 1.025 08/03/2023 2:30 PM [facility] PH,URINE 7.0 6.0, 7.0, 8.0, 5.5, 6.5, 7.5, 8.5 08/03/2023 2:30 PM [facility] UROBILINOGEN, QUALITATIVE Normal Normal EU/dl 08/03/2023 2:30 PM [facility] PROTEIN, URINE Negative Negative mg/dL 08/03/2023 2:30 PM [facility] GLUCOSE, URINE Negative Negative mg/dL 08/03/2023 2:30 PM [facility] KETONES,URINE Negative Negative mg/dL 08/03/2023 2:30 PM [facility] BILIRUBIN,URI NE Negative Negative 08/03/2023 2:30 PM CDT [facility] OCCULT BLOOD,URINE Moderate(A) Negative 08/03/2023 2:30 PM CDT [facility] NITRITE Negative Negative 08/03/2023 2:30 PM CDT [facility] LEUKOCYTE ESTERASE Negative Negative 08/03/2023 2:30 PM CDT [facility] Urine URINE SPECIMEN / Unknown Non-Blood / Unknown 08/03/2023 2:23 PM CDT 08/03/2023 2:[address] BERUMEN URINE [facility] [address] [place] [address] * BLOOD CULTURE X2 (08/03/2023 1:25 PM CDT) Only the most recent of6 resultswithin the time period is included. CULTURE No Growth. 08/08/2023 6:59 PM CDT [facility] Blood BLOOD SPECIMEN / Unknown Butterfly / Unknown 08/03/2023 1:25 PM CDT 08/03/2023 1:[address] BERUMEN MICROBIOLOG Y [facility] [address] [place] [address] * (ABNORMAL) CBC WITH AUTO DIFFERENTIAL (08/03/2023 1:17 PM CDT) Only the most recent of4 resultswithin the time period is included. WHITE BLOOD COUNT 4.5 4.5 - 11.0 thou/cu mm 08/03/2023 1:38 PM CDT [facility] RED BLOOD COUNT 4.74 4.00 - 5.20 mil/cu mm 08/03/2023 1:38 PM CDT [facility] HEMOGLOBIN 11.7(L) 12.0 - 16.0 g/dL 08/03/2023 1:38 PM [facility] HEMATOCRIT 37.2 33.0 - 51.0 % 08/03/2023 1:38 PM [facility] MCV 79(L) 80 - 100 fL 08/03/2023 1:38 PM [facility] MCH 24.7(L) 26.0 - 34.0 pg 08/03/2023 1:38 PM [facility] MCHC 31.5(L) 32.0 - 36.0 g/dL 08/03/2023 1:38 PM [facility] [facility] RDW 17.6(H) 11.5 - 15.5 % 08/03/2023 1:38 PM [facility] PLATELET COUNT 249 140 - 440 thou/cu mm 08/03/2023 1:38 PM [facility] MPV 10.8 6.5 - 11.0 fL 08/03/2023 1:38 PM [facility] % NEUT 70.7 % 08/03/2023 1:38 PM [facility] % LYMPH 12.2 % 08/03/2023 1:38 PM [facility] % MONO 9.5 % 08/03/2023 1:38 PM [facility] % EOS 6.9 % 08/03/2023 1:38 PM [facility] % BASO 0.7 % 08/03/2023 1:38 PM [facility] ABSOLUTE NEUTROPHILS 3.2 1.7 - 7.0 thou/cu mm 08/03/2023 1:38 PM [facility] ABSOLUTE LYMPHOCYTES 0.6(L) 0.9 - 2.9 thou/cu mm 08/03/2023 1:38 PM [facility] ABSOLUTE MONOCYTES 0.4 <0.9 thou/cu mm 08/03/2023 1:38 PM [facility] ABSOLUTE EOSINOPHILS 0.3 <0.5 thou/cu mm 08/03/2023 1:38 PM [facility] ABSOLUTE BASOPHILS 0.0 <0.3 thou/cu mm 08/03/2023 1:38 PM CDT [facility] Blood BLOOD SPECIMEN / Unknown Butterfly / Unknown 08/03/2023 1:17 PM CDT 08/03/2023 1:[address] BERUMEN HEMATOLOGY Performing Organization Address City/[facility]/ZIP Co de Phone Number [facility] [address] [place] [address] * LACTATE VENOUS (08/03/2023 1:17 PM CDT) Only the most recent of5 resultswithin the time period is included. LACTATE,VENOUS 1.1 0.5 - 2.0 mmol/L 08/03/2023 1:53 PM CDT [facility] Blood BLOOD SPECIMEN / Unknown Butterfly / Unknown 08/03/2023 1:17 PM CDT 08/03/2023 1:[address] BERUMEN CHEMISTRY Performing Organization Address [facility] Co de Phone Number [facility] [address] [place] [address] * (ABNORMAL) PROTIME-INR (08/03/2023 1:17 PM CDT) Only the most recent of4 resultswithin the time period is included. INR 1.2 <1.3 08/03/2023 1:43 PM CDT [facility] PROTIME 12.9(H) 10.3 - 12.3 sec 08/03/2023 1:43 PM CDT [facility] Blood BLOOD SPECIMEN / Unknown Butterfly / Unknown 08/03/2023 1:17 PM CDT 08/03/2023 1:33 PM CDT Narrative [facility] - 08/03/2023 1:43 PM CDT ?Therapeutic [...] patient is on UFH. Lane BERUMEN HEMATOLOGY [facility] [address] [place] [address] * (ABNORMAL) COMP METABOLIC PANEL (08/03/2023 1:17 PM CDT) Only the most recent of3 resultswithin the time period is included. SODIUM 142 136 - 145 mmol/L 08/03/2023 2:09 PM [facility] POTASSIUM 3.4(L) 3.5 - 5.1 mmol/L 08/03/2023 2:09 PM [facility] CHLORIDE 102 98 - 107 mmol/L 08/03/2023 2:09 PM [facility] CO2,TOTAL 28 22 - 29 mmol/L 08/03/2023 2:09 PM [facility] ANION GAP 12 5 - 18 08/03/2023 2:09 PM [facility] GLUCOSE 106(H) 70 - 99 mg/dL 08/03/2023 2:09 PM [facility] CALCIUM 9.6 8.6 - 10.0 mg/dL 08/03/2023 2:09 PM [facility] BUN 4(L) 6 - 20 mg/dL 08/03/2023 2:09 PM [facility] CREATININE 0.44(L) 0.50 - 0.90 mg/dL 08/03/2023 2:09 PM [facility] BUN/CREAT RATIO 9(L) 10 - 20 2:09 PM [facility] eGFR >90 >90 mL/min/1.7 3m2 08/03/2023 2:09 PM CDT [facility] Comment:As of 2021, eG FR is calculated by the CKD-EPI creatinine equation without race adjustment. ??eGFR can be influenced by muscle mass, exercise, and diet. ??The reported eGFR is an estimation only and is only applicable if the renal function is stable. ALBUMIN 4.2 4.0 - 4.9 g/dL 08/03/2023 2:09 PM CDT [facility] PROTEIN,TOTAL 7.4 6.0 - 8.0 g/dL 08/03/2023 2:09 PM CDT [facility] BILIRUBIN,TOTAL 0.5 0.0 - 1.2 mg/dL 08/03/2023 2:09 PM CDT [facility] ALK PHOSPHATASE 104 35 - 104 IU/L 08/03/2023 2:09 PM CDT [facility] ALT (SGPT) <5(L) 10 - 35 IU/L 08/03/2023 2:09 PM CDT [facility] AST (SGOT) 22 10 - 35 IU/L 08/03/2023 2:09 PM CDT [facility] Blood BLOOD SPECIMEN / Unknown Butterfly / Unknown 08/03/2023 1:17 PM CDT 08/03/2023 1:[address] BERUMEN CHEMISTRY [facility] [address] [place] [address] * XR CHEST 1 VIEW PORTABLE (08/03/2023 [...] For Patients: As a result of the s , medical imagingexams and procedure reports are released [...] 08/03/2023 1:08:07 PM (Electronically Signed) Lane BERUMEN [facility] GING * US BREAST UNILATERAL LEFT LIMITED (08/02/2023 11:31 AM CDT) Anatomical Region Laterality Modality BREASTS, Breast Left, Breast Right Left Ultrasound, Other 08/02/2023 11:4 7 AM CDT Narrative 08/03/2023 6:30 AM CDT For Patients: As a result of the s Act, medical imaging exams and procedure reports [...] by: Marcel Smith MD @08/02/2023 11:47:56 AM CRL:[email or web address] Laurence BERUMEN US * CT CHEST ABDOMEN [...] MD @ 06/19/2023 12:45:40 PM (Electronically Signed) Alisoncarlton Epstein Ramírez FIRER WATERTENDER CT * PROCALCITONIN (06/19/2023 11:39 AM CDT) PROCALCITONIN 0.04 ng/ml 06/19/2023 12:21 PM CDT [facility] Blood BLOOD SPECIMEN / Unknown Butterfly / Unknown 06/19/2023 11:39 AM CDT 06/19/2023 11:47 AM CDT [facility] - 06/19/2023 12:21 PM CDT [...] < 2 ng/mL are obtained. Alison Elmore FIRER WATERTENDER SEND OUTS Performing Organization Address [facility] Co de Phone Number [facility] [address] [place] [address] * (ABNORMAL) HEMOGLOBIN (06/05/2023 9:27 AM CDT) Only the most recent of4 resultswithin the time period is included. HEMOGLOBIN 9.3(L) 12.0 - 16.0 g/dL 06/05/2023 9:47 AM CDT [facility] MCV 82 80 - 100 fL 06/05/2023 9:47 AM CDT [facility] Blood BLOOD SPECIMEN / Unknown Butterfly / Unknown 06/05/2023 9:27 AM CDT 06/05/2023 9:36 AM CDT Kathy Rizzo NP HEMATOLOGY Performing Organization Address [facility] Co de Phone Number [facility] [address] [place] [address] * POTASSIUM (06/05/2023 9:27 AM CDT) Only the most recent of3 resultswithin the time period is included. POTASSIUM 4.0 3.5 - 5.1 mmol/L 06/05/2023 10:00 AM CDT [facility] Blood BLOOD SPECIMEN / Unknown Butterfly / Unknown 06/05/2023 9:27 AM CDT 06/05/2023 9:36 AM CDT Kathy Rizzo NP CHEMISTRY [facility] [address] [place] [address] * (ABNORMAL) CREATININE (06/05/2023 9:27 AM CDT) Only the most recent of3 resultswithin the time period is included. eGFR >90 >90 mL/min/1.7 3m2 06/05/2023 10:00 AM CDT [facility] Comment:As of 2021, eG FR is calculated by the CKD-EPI creatinine equation without race adjustment. ??eGFR can be influenced by muscle mass, exercise, and diet. ??The reported eGFR is an estimation only and is only applicable if the renal function is stable. CREATININE 0.48(L) 0.50 - 0.90 mg/dL 06/05/2023 10:00 AM CDT [facility] Blood BLOOD SPECIMEN / Unknown Butterfly / Unknown 06/05/2023 9:27 AM CDT 06/05/2023 9:36 AM CDT Kathy Rizzo NP CHEMISTRY Performing Organization Address City/[facility]/ZIP Co de Phone Number [facility] [address] [place] [address] * MAGNESIUM (06/05/2023 9:27 AM CDT) Only the most recent of2 resultswithin the time period is included. MAGNESIUM 1.7 1.6 - 2.6 mg/dL 06/05/2023 10:00 AM CDT [facility] Blood BLOOD SPECIMEN / Unknown Butterfly / Unknown 06/05/2023 9:27 AM CDT 06/05/2023 9:36 AM CDT Kathy Rizzo NP CHEMISTRY Performing Organization Address City/[facility]/ZIP Co de Phone Number [facility] [address] [place] [address] * GLUCOSE METER (06/05/2023 9:13 AM CDT) Only the most recent of21 resultswithin the time period is included. [facility] GLUCOSE METER 99 65 - 100 mg/dL 06/05/2023 11:29 AM CDT [facility] Blood BLOOD SPECIMEN / Unknown 06/05/2023 9:13 AM CDT 06/05/2023 11:29 AM CDT Kathy Rizzo NP CHEMISTRY Performing Organization Address [facility] de Phone Number [facility] [address] [place] [address] * EKG 12 LEAD (06/04/2023 11:46 AM CDT) [facility] Interpretation Normal sinus rhythm Low voltage [...] NOW QTc 442 ms BEYOND NOW P [place] 53 degrees BEYOND NOW R [place] -6 degrees BEYOND NOW T [place] 16 degrees BEYOND NOW 06/04/2023 11:4 6 AM CDT 06/04/2023 8:21 PM CDT Kathy Rizzo NP EKG ORD Performing Organization Address [facility] Co de Phone Number BEYOND NOW [place], [place] * WHITE BLOOD COUNT (06/04/2023 5:50 AM CDT) Only the most recent of2 resultswithin the time period is included. [facility] WHITE BLOOD COUNT 5.1 4.5 - 11.0 thou/cu mm 06/04/2023 6:32 AM CDT [facility] Blood BLOOD SPECIMEN / Unknown Butterfly / Unknown 06/04/2023 5:50 AM CDT 06/04/2023 6:25 AM CDT Kathy Rizzo NP HEMATOLOGY Performing Organization Address [facility] Co de Phone Number [facility] [address] [place] [address] * SODIUM (06/04/2023 5:50 AM CDT) Only the most recent of2 resultswithin the time period is included. Pathologist [facility] [place] SODIUM 138 136 - 145 mmol/L 06/04/2023 6:51 AM CDT [facility] Blood BLOOD SPECIMEN / Unknown Butterfly / Unknown 06/04/2023 5:50 AM CDT 06/04/2023 6:25 AM CDT Kathy Rizzo NP CHEMISTRY Performing Organization Address [facility] de Phone Number [facility] [address] [place] [address] * (ABNORMAL) C-REACTIVE PROTEIN (06/03/2023 6:49 AM CDT) Pathologist [facility] [place] C-REACTIVE PROTEIN 3.5(H) <0.5 mg/dL 06/03/2023 7:36 AM CDT [facility] Blood BLOOD SPECIMEN / Unknown Butterfly / Unknown 06/03/2023 6:49 AM CDT 06/03/2023 6:53 AM CDT Rory Boyer DO CHEMISTRY Performing Organization Address [facility] Co de Phone Number [facility] [address] [place] [address] * SCAN-CARDIAC STRIP (06/02/2023 10:13 AM CDT) Scanner OTHER * (ABNORMAL) CREATININE,ISTAT (06/02/2023 6:34 AM CDT) CREATININE, POCT 0.40(L) 0.57 - 1.11 mg/dL 06/02/2023 6:36 AM CDT [facility] Comment:Caution: Patients ta jaleel Hydroxyurea have falsely increased iStat Creatinine results. Verify creatinine results ordering a Creatinine (72949.2) eGFR >90 >90 mL/min/1.7 3m2 06/02/2023 6:36 AM CDT [facility] Comment:As of 2021, eG FR is calculated by the CKD-EPI creatinine equation without race adjustment. eGFR can be influenced by muscle mass, exercise, and diet. The reported eGFR is an estimation only and is only applicable if the renal function is stable. Blood BLOOD SPECIMEN / Unknown 06/02/2023 6:34 AM CDT 06/02/2023 6:36 AM CDT Rory Boyer DO CHEMISTRY [facility] [address] [place] [address] * SCAN-CARDIAC STRIP (06/02/2023 3:50 AM CDT) Scanner OTHER * (ABNORMAL) URINE CULTURE (06/01/2023 10:08 PM CDT) CULTURE RESULT(A) 06/05/2023 9:31 AM CDT [facility] CULTURE >100,000 CFU/mL Escherichia coli 06/05/2023 9:31 AM CDT [facility] CULTURE 10,000-50,000 CFU/mL Enterococcus faecalis 06/05/2023 9:31 AM CDT [facility] Urine URINE SPECIMEN / Unknown [...] NITROFURANTOIN <=16: S Lane BERUMEN MICROBIOLOG Y [facility] [address] [place] [id number], * (ABNORMAL) AEROBIC BACTERIAL CULTURE, STAIN (06/01/2023 8:47 PM CDT) CULTURE RESULT(A) 06/05/2023 8:50 AM CDT [facility] CULTURE 3+ Pseudomonas stutzeri 06/05/2023 8:50 AM CDT [facility] GRAM STAIN No Epithelial cells 06/05/2023 8:50 AM CDT [facility] GRAM STAIN 4+ RBCs 06/05/2023 8:50 AM CDT [facility] GRAM STAIN 2+ PMNs 06/05/2023 8:50 AM CDT [facility] GRAM STAIN 2+ Gram Negative Bacilli 06/05/2023 8:50 AM CDT [facility] Other (Other) Non-Blood / Unknown [...] MEROPEN[place] <=0.25: S Lane BERUMEN MICROBIOLOG Y [facility] [address] [address], [place] * MUSCULOSKELETAL ULTRASOUND (05/28/2023 10:00 AM [...] cellulitis Darryl Hardy MD 05/28/2023 10:00 AM [facility] Emergency Department [phone] Darryl Hardy MD PROCEDURE ORD * (ABNORMAL) RED CELL MORPHOLOGY (05/28/2023 9:28 AM CDT) ELLIPTOCYTES Moderate 05/28/2023 10:04 AM CDT [facility] TEARDROP CELLS Few 05/28/2023 10:04 AM T [facility] RBC COMMENT Present(A) RBC morphology appears normal, RBC morphology within normal limits for newborns. 05/28/2023 10:04 AM T [facility] Blood BLOOD SPECIMEN / Unknown Butterfly / Unknown 05/28/2023 9:28 AM CDT 05/28/2023 9:35 AM CDT Josi Quevedo RN HEMATOLOGY Performing Organization Address [facility]/ZIP Co de Phone Number [facility] [address], [place] [id number] * PLATELET ESTIMATE (05/28/2023 9:28 AM CDT) Pathologist [facility] [place] PLATELET ESTIMATE Adequate Adequate, No estimate 05/28/2023 10:04 AM T [facility] Blood BLOOD SPECIMEN / Unknown Butterfly / Unknown 05/28/2023 9:28 AM CDT 05/28/2023 9:35 AM CDT Josi Quevedo RN HEMATOLOGY Performing Organization Address [facility]/ZIP Co de Phone Number [facility] [address] [place] [address] * (ABNORMAL) MANUAL DIFFERENTIAL (05/28/2023 9:28 AM CDT) % NEUTROPHILS 81.0 % 05/28/2023 10:04 AM [facility] % LYMPHOCYTES 12.0 % 05/28/2023 10:04 AM [facility] % MONOCYTES 4.0 % 05/28/2023 10:04 AM [facility] % EOSINOPHILS 3.0 % 05/28/2023 10:04 AM [facility] % BASOPHILS 0.0 % 05/28/2023 10:04 AM [facility] NEUTROPHILS ABSOLUTE 5.5 1.7 - 7.0 thou/cu mm 05/28/2023 10:04 AM [facility] LYMPHOCYTES ABSOLUTE 0.8(L) 0.9 - 2.9 thou/cu mm 05/28/2023 10:04 AM CDT [facility] MONOCYTES ABSOLUTE 0.3 <0.9 thou/cu mm 05/28/2023 10:04 AM CDT [facility] EOSINOPHILS ABSOLUTE 0.2 <0.5 thou/cu mm 05/28/2023 10:04 AM CDT [facility] BASOPHILS ABSOLUTE 0.0 <0.3 thou/cu mm 05/28/2023 10:04 AM CDT [facility] Blood BLOOD SPECIMEN / Unknown Butterfly / Unknown 05/28/2023 9:28 AM CDT 05/28/2023 9:35 AM CDT Josi Quevedo RN HEMATOLOGY Performing Organization Address City/[facility]/ZIP Co de Phone Number [facility] [address] [place] [address] * TYPE AND SCREEN ONLY (05/28/2023 9:28 AM CDT) ABORH O Rh Positive 05/28/2023 10:20 AM CDT [facility] BLOOD BANK ANTIBODY SCREEN Negative Negative 05/28/2023 10:20 AM T [facility] BLOOD BANK SPECIMEN EXPIRATION DATE/TIME 05/31/23 23:59 05/28/2023 10:20 AM T [facility] BLOOD BANK Blood BLOOD SPECIMEN / Unknown Butterfly / Unknown 05/28/2023 9:28 AM CDT 05/28/2023 9:35 AM CDT Brian Ed Triage BLOOD BANK Performing Organization Address City/[facility]/ZIP Co de Phone Number [facility] BLOOD BANK [address] [place] [address] * (ABNORMAL) HEPATIC FUNCTION PANEL (05/28/2023 9:28 AM CDT) ALBUMIN 4.6 4.0 - 4.9 g/dL 05/28/2023 9:55 AM CDT [facility] PROTEIN,TOTAL 7.9 6.0 - 8.0 g/dL 05/28/2023 9:55 AM T [facility] BILIRUBIN,TOTAL 0.5 0.0 - 1.2 mg/dL 05/28/2023 9:55 AM [facility] BILIRUBIN,DIRECT <0.2 0.0 - 0.3 mg/dL 05/28/2023 9:55 AM T [facility] BILIRUBIN,INDIRE CT 05/28/2023 9:55 AM FERRY [...] 9:35 AM CDT Darryl Hardy MD CHEMISTRY Performing Organization Address [facility]/State/ZIP Co de Phone Number [facility] [address] [place] [address] * (ABNORMAL) Basic Metabolic Panel (05/28/2023 9:28 [...] 70 - 99 mg/dL 05/28/2023 9:55 AM T [facility] CALCIUM 10.1(H) 8.6 - 10.0 mg/dL 05/28/2023 9:55 AM T [facility] BUN 6 6 - 20 mg/dL 05/28/2023 9:55 AM T [facility] CREATININE 0.53 0.50 - 0.90 mg/dL 05/28/2023 9:55 AM T [facility] BUN/CREAT RATIO 11 10 - 20 9:55 AM T [facility] eGFR >90 >90 mL/min/1.7 [...] 9:35 AM CDT Josi Quevedo RN CHEMISTRY [facility] [address] [place] [address] * (ABNORMAL) LIPID PANEL W REFLEX MEASURED LDL (11/30/2022 4:09 PM CDT) CHOLESTEROL,TOTAL 160 100 - 199 mg/dL 11/30/2022 11:51 PM CDT [facility] Comment: Cholesterol, Total Reference Ranges Desirable <200 mg/dL Borderline 200-239 mg/dL High >=240 mg/dL TRIGLYCERIDES 149 <150 mg/dL 11/30/2022 11:51 PM CDT [facility] HDL CHOLESTEROL 36(L) >40 mg/dL 11:51 PM CDT [facility] NON-HDL CHOLESTEROL 124 <145 mg/dl 11/30/2022 11:51 PM CDT [facility] CHOL/HDL RATIO 4.44 <4.50 11/30/2022 11:51 PM CDT [facility] LDL CHOLESTEROL 94 <=130 mg/dL 11/30/2022 11:51 PM CDT [facility] VLDL CHOLESTEROL 30 <=30 mg/dL 11/30/2022 11:51 PM CDT [facility] PROVIDER ORDERED STATUS RANDOM 11/30/2022 11:51 PM CDT [facility] Blood BLOOD SPECIMEN / Unknown Butterfly / Unknown 11/30/2022 4:09 PM CDT 11/30/2022 4:11 PM CDT Laurence BERUMEN CHEMISTRY [facility] [address] [place] [id number], * XR MAMMO KAYLEE BILAT SCREEN (06/07/2022 [...] care provider. XR MAMMO KAYLEE BILAT SCREEN [[id number]] CLINICAL HISTORY: ??This is an asymptomatic 47 [...] carly Non-React carly 09/23/2021 4:44 PM CDT [facility] Comment:Antibodies to HCV no t detected; does not exclude the possibility of exposure to HCV. Blood BLOOD SPECIMEN / Unknown Venipuncture / Unknown 09/20/2021 11:11 PM CDT 09/20/2021 11:15 PM CDT Bela Chávez MD SEND OUTS [facility] [address] [place] [address], * ANTI HIV 1/2 (09/20/2021 11:11 PM CDT) HIV-1/HIV-2 ANTIBODY Non-Reacti ve Non-Reacti ve 09/23/2021 6:18 PM CDT [facility] Comment:HIV-1 p24 and HIV-1/ HIV-2 Ab not detected. Blood BLOOD SPECIMEN / Unknown Venipuncture / Unknown 09/20/2021 11:11 PM CDT 09/20/2021 11:15 PM CDT Bela Chávez MD SEND OUTS [facility] 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 Healthcare Directive 12/15/2022 023 POLST [...] Intubation Drug Protocol: No Restrictions Care Teams Salesperson Neckties Relationship Specialty Start Date End Date Laurence Mujica PA [address] [place] [address] PCP - General Physician Substance Addiction Coordinator 07/16/14 Yumiko Garcia NP [address] [place] [address] Psychiatry Nurse Practitioner 04/07/16 Nga White MD [address] [place] [address] Surgery - Urology 06/15/22 [facility] [place] [address] [place] [id number] 04/30/23 [facility] [place] [address] [place] [id number] 04/30/23
== END 2023-08-15 14:47 | disposition home or self-care (01) ==
LOC: WOUND 14:46
PROVIDERS: PCP Physician Assistant; Visit Provider Surgery
DX: T81.31XA Disruption of external operation (surgical) wound, not elsewhere classified, initial encounter (principal); E11.628 Type 2 diabetes mellitus with other skin complications; G35 Multiple sclerosis; Z79.84 Long term (current) use of oral hypoglycemic drugs
CPT/HCPCS: 97605; G0463

== ENCOUNTER 2023-08-29 10:35 | Outpatient (CLI) | payer MEDICARE, MEDICAID, SELFPAY ==
--- OUTSIDE RECORDS SUMMARY | 2023-08-29 10:37 | XMS_ITS ---
Author Organization [facility] Address [address] [place] [address] [address] [place] [address] Care Team Providers Care Parts Chaser Name Role Phone Laurence Mujica Primary Care Provider UnavailDavid Tripathi Unavailable [phone] Raymond Jurado DO Unavailable Unavailable Anton Griffin Unavailable [phone] REASON FOR VISIT 4 week Follow-up MEDICATIONS Medication SIG (Take, Route, Frequency, Duration) Notes Start Date End Date Status Trulicity 0.75 MG/0.5ML Subcutaneous for 28 Days Active Atorvastatin Calcium 20 MG Oral for 90 Days Active Famotidine 40 MG Oral for 90 Days Active Omeprazole 40 MG Oral for 90 Days Active Eszopiclone 3 MG 1 tablet immediately before bedtime Oral Once a day for 30 days Active Amphetamine-Dextroamphetam ine 15 MG 1 tablet Orally once a day A ctive Amantadine HCl 100 MG Oral for 30 Days Active DULoxetine HCl 60 MG Oral for 32 Days Active ARIPiprazole 30 MG 1 tablet Oral Once a day for 90 days Active Dilaudid 2 MG 1 tablet as needed O rally every 4 hrs for 30 days Active Dimethyl Fumarate 240 [...] FOR NAUSEA/VOMITING. Oral for 10 Days Active Encounters Encounter Location Date Provider Diagnosis BV [address] [facility] [address] [facility] [address] [place] [address] 08/29/2023 Anton Griffin Pain in leg, unspecified M79.606 ; Fibromyalgia M79.7 and Other chronic pain G89.29 ASSESSMENTS Encounter Date Diagnosis Assessment Notes Treatment Notes Treatment Clinical Notes 08/29/2023 Pain in leg, unspecified (ICD-10 - M79.606) 08/29/2023 Fibromyalgia (ICD-10 - M79.7) 08/29/2023 Other chronic pain (ICD-10 - G89.29) Mariana returns to clinic today for a follow up evaluation regarding her chronic dispersed body pain. I have reviewed the [facility] database and did not find [...] call with any questions, problems or concerns. 08/29/2023 Hernandez Deras, am serving as a scribe to [...] rally every 4 hrs for 30 days Treatment Notes Assessment Notes Other chronic pain Mariana returns to clinic today for a follow up evaluation regarding her chronic dispersed body pain. I have reviewed the [facility] database and did not find [...] with any questions, problems or concerns. Other Hernandez Min, am serving as a scribe to [...] during the clinic visit. Next Appt Details Provider Name:Anton schmidt, 08/29/2023 02:00:00 PM, [address], [address], [place], [address], Progress Notes * Examination Category Sub-Category Detail Notes Musculoskeletal Constitutional: normal body habi tus , well groomed , in no acute distress Musculoskeletal: normal gait and stat ion , sits comfortably Skin: No rashes, scars, or lesions on visible skin Neurological normal coordination upper extremities , normal coordination lower extremities , alert and oriented x3 , normal mood and affect
--- OUTSIDE RECORDS SUMMARY | 2023-08-29 10:37 | XMS_ITS ---
Author Organization [facility] Address [address] [place] [address] [address] [place] [address] Care Team Providers Care Care Mgr Name Role Phone Laurence Mujica Primary Care Provider UnavailDavid Tripathi Unavailable [phone] Raymond Jurado DO Unavailable Unavailable Anton Griffin Unavailable [phone] ALLERGIES Allergen (clinical drug ingredient) Drug/Non Drug [...] Diagnosis 104 [facility] [address] [facility] [address] [place] [address] 07/31/2023 Anton Bolick Pain in leg, unspecified [...] dispersed body pain. I have reviewed the [place] [employer] database and did not find any [...] dispersed body pain. I have reviewed the [place] [employer] database and did not find any [...] by the aforementioned MIRELLA as well as Albni Michaud MD, prior to being entered into [...] Reason: Provider Name:Anton schmidt, 08/29/2023 02:00:00 PM, [address] [facility], [address], [place], [address], Progress Notes * Examination Category Sub-Category Detail [...]
--- OUTSIDE RECORDS SUMMARY | 2023-08-29 10:37 | XMS_ITS ---
Author Organization [facility] Address [address] [place] [address] [address] [place] [address] Care Team Providers Care Nanotechnology Engineering Technologist Name Role Phone Laurence Mujica Primary Care Provider UnavailDavid Tripathi Unavailable [phone] Raymond Jurado DO Unavailable Unavailable Anton Griffin Unavailable [phone] ALLERGIES Allergen (clinical drug ingredient) Drug/Non Drug [...] Diagnosis 104 [facility] [address] [place] [address] 07/04/2023 Anton Griffin Other chronic pain G89.29 and Pain in leg, unspecified M79.606 ASSESSMENTS Encounter Date Diagnosis Assessment Notes Treatment Notes Treatment Clinical Notes 07/04/2023 Other chronic pain (ICD-10 - G89.29) Mariana returns to clinic today for a follow up evaluation regarding her chronic dispersed body pain. I have reviewed the [facility] database and did not find any inconsistencies. [...] dispersed body pain. I have reviewed the [facility] database and did not find any inconsistencies. [...] Reason: Provider Name:Anton schmidt, 08/29/2023 02:00:00 PM, [address], [address], [place], [address], Progress Notes * Examination Category Sub-Category Detail [...]
--- OUTSIDE RECORDS SUMMARY | 2023-08-29 10:38 | XMS_ITS ---
Author Organization [facility] Address [address] [place] [address] Care Team Providers Care Quick Sketch Artist Name Role Phone Unavailable Unavailable Unavailable Surgery Details Not on file Complications Check Surgery Details section. Procedure Estimated Blood Loss Check Surgery Details section. Procedure Findings Check Surgery Details section. Procedure Specimens Taken Check Surgery Details section.
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
--- OUTSIDE RECORDS SUMMARY | 2023-08-29 10:38 | XMS_ITS | Clinical Summary ---
Author Organization [facility] Address [address] [place] [address] Care Team Providers Care Admissions Assistant Name Role Phone Elsewhere, Pcp Primary Care Provider Unavailabl e Source Comments Patient records contain information from all sites at [facility]. For routine questions regarding patient records, call [phone] during business hours, M-F 8:00 AM - 5:00 PM Central Time. Record requests for emergency care only can be directed to [phone] at any time.[facility] Allergies Active Allergy Reactions Criticality Noted Date [...] Given: Not Answered Comments:Smokes more when stressed [facility] Utilities Answer Date Recorded In the past [address] [facility] [employer], gas, oil, or water [employer] threatened to shut off services in your [...] How often do you attend zoroastrian or voodoo serv ices? Never 01/25/2022 Do you belong [...] medical care, and heating? Very hard 01/25/2022 [facility] Occupat ional Health - Occupational [...] Sex Assigned at Female 01/25/2022 2:30 PM MICROSTRATEGY DEVELOPER Gender Identity Female 01/25/2022 2:30 PM MICROSTRATEGY DEVELOPER Sexual Orientation Straight 01/25/2022 2: 30 PM MICROSTRATEGY DEVELOPER Last Filed Vital Signs Vital Sign Reading Time Taken Comments Blood Pressure 96/66 04/24/2023 9:27 AM CDT Pulse 73 04/24/2023 9:27 AM CDT Temperature 36.6 ??C (97.9 ??F) 12/19/2020 6:19 AM CS T Respiratory Rate 16 12/19/2020 6:19 AM MICROSTRATEGY DEVELOPER Oxygen Saturation 94% 12/19/2020 6:19 AM MICROSTRATEGY DEVELOPER Inhaled Oxygen Concentration - - Weight 104 kg (228 lb 13.4 oz) 12/28/2020 8:51 A M MICROSTRATEGY DEVELOPER Height 175.3 cm (5' 9) 12/17/2020 10:53 PM MICROSTRATEGY DEVELOPER Body Mass Index 33.79 12/17/2020 10:53 PM MICROSTRATEGY DEVELOPER Plan of Treatment Health Maintenance Due Date [...] this topic Medical Devices Implanted Type Area Data Integration Architect Device Identifier Shelf Expiration Date Model / [...] METABOLIC PANEL, S/P Routine 12/19/2020 7:20 AM MICROSTRATEGY DEVELOPER OPHTHALMOLOGY IMAGE EXAM Routine 03/26/2015 12:00 AM MICROSTRATEGY DEVELOPER CHRONIC VIRAL HEPATITIS PROFILE Routine 04/28/2014 6:41 PM CDT HIV-1/-2 AG AND AB SCREEN Routine 04/28/2014 6:41 PM CDT HEMOGLOBIN A1C, B Routine 04/27/2014 1:2 2 PM CDT from Last 3 Months or Most Recently Relevant to Health Maintenance Results * (ABNORMAL) Basic Metabolic Panel (12/19/2020 7:20 AM MICROSTRATEGY DEVELOPER) Pathologist [facility] Potassium, P 4.5 3.6 - 5.2 mmol/L 12/19/2020 8:08 AM MICROSTRATEGY DEVELOPER MKTO Sodium, P 134(L) 135 - 145 mmol/L 12/19/2020 8:08 AM MICROSTRATEGY DEVELOPER MKTO Chloride, P 102 98 - 107 mmol/L 12/19/2020 8:08 AM MICROSTRATEGY DEVELOPER MKTO Bicarbonate, P 24 22 - 29 mmol/L 12/19/2020 8:08 AM MICROSTRATEGY DEVELOPER MKTO Anion Gap, P 8 7 - 15 12/19/2020 8:08 AM MICROSTRATEGY DEVELOPER MKTO BUN (Blood Urea Nitrogen), P 13 6 - 21 mg/dL 12/19/2020 8:08 AM MICROSTRATEGY DEVELOPER MKTO Creatinine 0.51(L) 0.59 - 1.04 mg/dL 12/19/2020 8:08 AM MICROSTRATEGY DEVELOPER MKTO eGFR-Black/Afri can Uzbek >90 >=60 mL/min/BSA 12/19/2020 8:08 AM MICROSTRATEGY DEVELOPER MKTO Comment: ----ADDITIONAL INFORMATION---- Estimated GFR calculated using the 2009 CKD_EPI creatinine equation. eGFR Non-Black/Afric an Uzbek >90 >=60 mL/min/BSA 12/19/2020 8:08 AM MICROSTRATEGY DEVELOPER MKTO Comment: ----ADDITIONAL INFORMATION---- Estimated GFR calculated using the 2009 CKD_EPI creatinine equation. Calcium, Total, P 9.4 8.6 - 10.0 mg/dL 12/19/2020 8:08 AM MICROSTRATEGY DEVELOPER MKTO Glucose, P 142(H) 70 - 140 mg/dL 12/19/2020 8:08 AM MICROSTRATEGY DEVELOPER MKTO Blood (Blood, Venous) 12/19/2020 7:20 AM MICROSTRATEGY DEVELOPER 12/19/2020 7:34 AM MICROSTRATEGY DEVELOPER Jerome Erickson LAB BLOOD ADD-ON [facility] [address] [place] [address], [facility] MKTO [place] [address] * OPHTHALMOLOGY IMAGE EXAM (03/26/2015 12:00 AM MICROSTRATEGY DEVELOPER) Anatomical Region Laterality Modality Other 03/26/2015 Addenda Addendum by ProviderJames M.D. on 03/26/2015 12:00 AM MICROSTRATEGY DEVELOPER OPH^^^MCR Eyes Visual Landrum 03/26/2015 00:00:00 Historical Provider IMG NON RAD IMAGING PROCEDURES * HIV-1/-2 Ag and Ab Screen (04/28/2014 6:41 PM CDT) Pathologist [facility] HIV-1/-2 Ag and Ab Screen, S Negative Negative [facility] Comment: Negative result does not rule out HIV infection. If ? acute HIV infection is suspected in a high-risk ? individual, submit plasma specimen for HIV-1 RNA ? quantification test (HIVQU) and/or HIV-2 DNA/RNA ? test (FHV2Q). ? 04/28/2014 6:41 PM CDT 04/28/2014 6:41 PM CDT Cirilo Mendez M.D. LAB MICROB IOLOGY - BLOOD ORDERABLES [facility] [address] [place] [address], [facility] * Chronic Hepatitis Profile (04/28/2014 6:41 PM CDT) HBs Antigen, S Negative Negative [facility] HBc Total Ab, S Negative Negative [facility] HBs Antibody,S Negative Unvaccinated : Negative; Vaccinated: Positive [facility] Comment:Patient is presumed to be not immune to infection with HBV. HBs Antibody, Quantitative, S <5.0 Unvaccinated : <5.0; Vaccinated: >=12.0 MIU/ML [facility] HCV Ab, S Negative Negative [facility] Comment:Mthgvc-xy-erjhvl rat io is <1.00. 04/28/2014 6:41 PM CDT 04/28/2014 6:41 PM CDT Cirilo Mendez M.D. LAB MICROB IOLOGY - BLOOD ORDERABLES [facility] [address] * Hemoglobin A1c (04/27/2014 1:22 PM CDT) Hemoglobin A1c, B 5.1 4.0 - 6.0 % [facility] 04/27/2014 1:22 PM CDT 04/27/2014 1:22 PM CDT Db Sousa M.D., M.A. LAB BLOOD ADD -ON [facility] [address] from Last 3 Months or Most Recently Relevant to Health Maintenance Advance Directives For more information, please contact: [phone] * Full Code (Latest Code Status on File) Date Activated Date Inactivated Comments 12/18/2020 1:35 AM 12/19/2020 3:25 PM Question Answer Comments Full Code: Discussed Care Teams Admissions Assistant Relationship Specialty Start Date End Date Elsewhere, Pcp PCP - General Family Medicine 12/19/20
--- OUTSIDE RECORDS SUMMARY | 2023-08-29 10:38 | XMS_ITS | Encounter Summary ---
Author Organization [facility] Address [address] [place] [address] Care Team Providers Care Data Collection Interviewer Name Role Phone Elsewhere, Pcp Primary Care Provider Unavailabl e Encounter Details Date Type Department Care Team (Late st Contact Info) Description 09/18/2014 Historical Ophthalmology [facility] Kristen Westfall M.D. Social History Tobacco Use Types Packs/Day Years Used Date Smoking Tobacco: Never Assessed Sex and Gender Information Value Date Recorded Sex Assigned at Female 01/25/2022 2:30 PM HOME APPLIANCE TECH Gender Identity Female 01/25/2022 2:30 PM HOME APPLIANCE TECH Sexual Orientation Straight 01/25/2022 2: 30 PM HOME APPLIANCE TECH documented as of this encounter Progress Notes [...] / PLAN Consult requested by: Josi Martinez [phone] #1 Blurred vision left eye. 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 [facility]M Reports - EYEGEN Id: [id number] Status: Fnl documented in this encounter Plan of Treatment Not on file documented as of this encounter Visit Diagnoses Not on filedocumented in this encounter Additional Health Concerns Infection Onset Date Last Indicated Resolved Time COVID19 Pending 12/17/2020 12/17/2020 01/06/2021 4 :54 AM HOME APPLIANCE TECH documented as of this encounter Care Teams Data Collection Interviewer Relationship Specialty Start Date End Date Elsewhere, Pcp PCP - General Family Medicine 12/19/20 documented as of this encounter
--- OUTSIDE RECORDS SUMMARY | 2023-08-29 10:38 | XMS_ITS | Encounter Summary ---
Author Organization [facility] Address [address] [place] [address] Care Team Providers Care Program Or Project Administrator Name Role Phone Elsewhere, Pcp Primary Care Provider Unavailabl e Encounter Details Date Type Department Care Team (Late st Contact Info) Description 03/25/2015 Historical Ophthalmology [facility] Jocelin Scott M.D. Social History Tobacco Use Types Packs/Day Years Used Date Smoking Tobacco: Never Assessed Sex and Gender Information Value Date Recorded Sex Assigned at Female 01/25/2022 2:30 PM SILICA FILTER OPERATOR Gender Identity Female 01/25/2022 2:30 PM SILICA FILTER OPERATOR Sexual Orientation Straight 01/25/2022 2: 30 PM SILICA FILTER OPERATOR documented as of this encounter Progress [...] light perception) CDM Reports - EYEGEN Id: [id number] Status: Fnl documented in this encounter Plan of Treatment Not on file documented as of this encounter Visit Diagnoses Not on filedocumented in this encounter Additional Health Concerns Infection Onset Date Last Indicated Resolved Time COVID19 Pending 12/17/2020 12/17/2020 01/06/2021 4 :54 AM SILICA FILTER OPERATOR documented as of this encounter Care Teams Program Or Project Administrator Relationship Specialty Start Date End Date Elsewhere, Pcp PCP - General Family Medicine 12/19/20 documented as of this encounter
--- OUTSIDE RECORDS SUMMARY | 2023-08-29 10:38 | XMS_ITS | Encounter Summary ---
Author Organization [facility] Address [address] [place] [address] Care Team Providers Care Etiologist Name Role Phone Elsewhere, Pcp Primary Care Provider Unavailabl e Encounter Details Date Type Department Care Team (Late st Contact Info) Description 03/26/2015 Historical Ophthalmology [facility] Adolph De Santiago M.D., Ph.D. [address] [place] [id number] Social History Tobacco Use Types Packs/Day Years Used Date Smoking Tobacco: Never Assessed Sex and Gender Information Value Date Recorded Sex Assigned at Female 01/25/2022 2:30 PM CARTRIDGE FILLER Gender Identity Female 01/25/2022 2:30 PM CARTRIDGE FILLER Sexual Orientation Straight 01/25/2022 2: 30 PM CARTRIDGE FILLER documented as of this encounter Progress Notes [...] light perception) #8 new optic perineuritis, right [facility] Reports - EYEGEN Id: [id number] Status: Fnl documented in this encounter Plan of Treatment Not on file documented as of this encounter Visit Diagnoses Not on filedocumented in this encounter Additional Health Concerns Infection Onset Date Last Indicated Resolved Time COVID19 Pending 12/17/2020 12/17/2020 01/06/2021 4 :54 AM CARTRIDGE FILLER documented as of this encounter Care Teams Etiologist Relationship Specialty Start Date End Date Elsewhere, Pcp PCP - General Family Medicine 12/19/20 documented as of this encounter
--- OUTSIDE RECORDS SUMMARY | 2023-08-29 10:38 | XMS_ITS | Patient Health Record ---
Author Organization [facility] Address [address] [place] [address] [address] [place] [address] Care Team Providers Care Soap Inspector Name Role Phone Laurence Mujica Primary Care Provider UnavailDavid Tripathi Unavailable [phone] Raymond Jurado DO Unavailable Unavailable Anton Griffin Unavailable [phone] Rod Golden Unavailable [phone] Fabian Walsh Unavailable [phone] ALLERGIES Allergen (clinical drug ingredient) Drug/Non Drug Allergy documented on EMR Reaction Allergy Type Onset Date Status fentanyl Fentanyl Hallucinations Drug Allergy Ac tive RESULTS Component Value Reference Range Notes Urine toxicology Reviewed date:03/07/2023 03:21:55 PM Interpretation:See Results Performing Lab: Notes/Report: See Results CARLOS Buprenophine OPI 300 1000 AMP Ethanol MET Creatinine MDMA pH Specific Edison BAR BZO OXY See Results MTD Urine toxicology Reviewed date:05/21/2023 12:21:59 PM Interpretation:See Results Performing Lab: Notes/Report: See Results CARLOS Buprenophine OPI 300 0 AMP Ethanol MET Creatinine MDMA pH Specific Edison BAR BZO OXY See Results MTD Urine toxicology Reviewed date:05/21/2023 12:21:59 PM Interpretation:See Results Performing Lab: Notes/Report: See Results CARLOS Buprenophine OPI 300 0 AMP Ethanol MET Creatinine MDMA pH Specific Edison BAR BZO OXY See Results MTD Urine toxicology Reviewed date:11/14/2022 03:40:36 PM Interpretation:See Results Performing Lab: Notes/Report: See Results CARLOS Buprenophine OPI 300 0 AMP Ethanol MET Creatinine MDMA pH Specific Edison BAR BZO OXY See Results MTD Urine toxicology Reviewed date:11/14/2022 03:40:36 PM Interpretation:See Results Performing Lab: Notes/Report: See Results CARLOS Buprenophine OPI 300 0 AMP Ethanol MET Creatinine MDMA pH Specific Edison BAR BZO OXY See Results MTD REASON [...] every 4 hrs for 30 days Active Omeprazole 40 MG Oral for [...] dependence, uncomplicated (F11.20) Active confirmed Opioid dependence (18582708) Problem Personality disorder, unspecified (F60.9) 9 Active confirmed Unspecified Personality Disorder; rule out mixed ( borderline, dependent, negativistic, explosive traits); rule out organic (07274439) Problem Other chronic pain (G89.29) Active confirmed Chronic pain (93915254) Problem Rheumatoid arthritis, unspecified (M06.9) Active confirmed Rheumatoid arthritis (74121839) Problem Systemic lupus erythematosus, unspecified (M32.9) Active confirmed Systemic lupus erythematosus (15036724) Problem Pain in leg, unspecified (M79.606) Active confirmed Pain in limb (52642723) Problem Fibromyalgia (M79.7) Active confirmed Fibromyalgia (798244902) VITAL SIGNS Blood pressure diastolic 72 mm Hg 07/31/2023 Height 69 in 07/31/2023 Blood pressure systolic 120 mm Hg 07/31/2023 Weight 187 lbs 07/31/2023 BMI 27.61 kg/m2 07/31/2023 Encounters Encounter Location Date Provider Diagnosis [facility] [address] [place] [address] [address] [facility] [place] [address] 10/26/2022 Anton Bolick Other chronic pain G89.29 [facility] [address] [place] [address] [address] [place] [address] 12/25/2022 Anton Bolick Other chronic pain G89.29 [facility] [address] [place] [address] [address] [facility] [place] [address] 2023 Anton Bolick [facility] [address] [place] [address] [address] [place] [address] 02/06/2023 Anton Bolick [facility] [address] [place] [address] [address] [place] [address] 05/11/2023 Anton Bolick [address] [facility] [address] [place] [address] 08/30/2022 Anton Bolick Pain in leg, unspecified M79.606 ; Fibromyalgia M79.7 and Other chronic pain G89.29 [address] [facility] [address] [place] [address] 09/27/2022 Anton Bolick Pain in leg, unspecified M79.606 ; Fibromyalgia M79.7 and Other chronic pain G89.29 [address] [facility] [address] [place] [phone] 10/25/2022 Anton Bolick Pain in leg, unspecified M79.606 ; Fibromyalgia M79.7 ; Other chronic pain G89.29 ; 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 [place] [address] 12/20/2022 Anton Bolick Pain in leg, unspecified M79.606 ; Fibromyalgia M79.7 and Other chronic pain G89.29 [address] [facility] [address] [place] [address] 01/16/2023 Anton Bolick Pain in leg, unspecified M79.606 ; Fibromyalgia M79.7 and Other chronic pain G89.29 [address] [facility] [address] [address] 2023 Anton Bolick Pain in leg, unspecified M79.606 ; Fibromyalgia M79.7 ; Other chronic pain G89.29 ; care home (current) use of opiate analgesic Z79.891 ; Opioid dependence, uncomplicated F11.20 and Encounter for screening for other disorder Z13.89 [address] [facility] 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 ; Opioid dependence, uncomplicated F11.20 and Encounter for screening for other disorder Z13.89 [address] [facility] [address] [place] [address] 03/08/2023 Rod Golden Pain in leg, unspecified M79.606 ; Fibromyalgia M79.7 and Other chronic pain G89.29 [address] [facility] [address] [place] [phone] 03/13/2023 Anton Bolick Pain in leg, unspecified M79.606 ; Fibromyalgia M79.7 and Other chronic pain G89.29 [address] [facility] [address] [place] [address] 04/10/2023 Anton Bolick Fibromyalgia M79.7 ; Pain in leg, unspecified M79.606 and Other chronic pain G89.29 [address] [facility] [address] [place] [address] 05/09/2023 Anton Bolick [address] [facility] [address] [place] [phone] 05/08/2023 Anton Bolick Fibromyalgia M79.7 ; Pain in leg, unspecified M79.606 ; Other chronic pain G89.29 ; 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 and Opioid dependence, uncomplicated F11.20 [address] [facility] [address] [place] [address] 06/06/2023 Anton Bolick Fibromyalgia M79.7 ; Pain in leg, unspecified M79.606 and Other chronic pain G89.29 [address] [facility] [address] [place] [phone] 07/04/2023 Anton Bolick Other chronic pain G89.29 and Pain in leg, unspecified M79.606 [address] [facility] [address] [place] [address] 07/31/2023 Anton Bolick Pain in leg, unspecified M79.606 ; Fibromyalgia M79.7 and Other chronic pain G89.29 [address] [facility] [address] [place] [address] 08/29/2023 Anton Bolick Pain in leg, unspecified M79.606 ; Fibromyalgia M79.7 and Other chronic pain G89.29 [address] [facility] [address] [place] [phone] 02/01/2023 Fabian Walsh [address] [facility] [address] [place] [address] 02/06/2023 Anton Griffin Pain in leg, unspecified M79.606 ; Fibromyalgia M79.7 ; Other chronic pain G89.29 ; care home (current) use of opiate analgesic Z79.891 ; [...] dispersed body pain. I have reviewed the [facility] database and did not find any [...] in leg, unspecified (ICD-10 - M79.606) 08/29/2023 Pain in leg, unspecified (ICD-10 - M79.606) 05/08/2023 Pain in leg, unspecified (ICD-10 - M79.606) 05/08/2023 Fibromyalgia (ICD-10 - M79.7) 02/06/2023 Pain in leg, unspecified (ICD-10 - M79.606) 2023 Pain in leg, unspecified (ICD-10 - M79.606) 12/25/2022 Other chronic pain (ICD-10 - G89.29) 12/20/2022 Pain in leg, unspecified (ICD-10 - M79.606) 11/21/2022 Pain in leg, unspecified (ICD-10 - M79.606) 10/26/2022 Other chronic pain (ICD-10 - G89.29) 04/10/2023 Pain in leg, unspecified (ICD-10 - M79.606) 04/10/2023 Fibromyalgia (ICD-10 - M79.7) 08/30/2022 Pain in leg, unspecified (ICD-10 - M79.606) 08/30/2022 Fibromyalgia (ICD-10 - M79.7) 04/10/2023 Other chronic pain (ICD-10 - G89.29) Mariana returns to clinic today for a follow up evaluation regarding her chronic knees to feet pain. I have reviewed the [facility] database and did not find any [...] with any questions, problems or concerns. 11/21/2022 Fibromyalgia (ICD-10 - M79.7) 12/20/2022 Fibromyalgia (ICD-10 - M79.7) 2023 Fibromyalgia (ICD-10 - M79.7) 02/06/2023 Fibromyalgia (ICD-10 - M79.7) 08/29/2023 Fibromyalgia (ICD-10 - M79.7) 07/31/2023 Other chronic pain (ICD-10 - G89.29) Mariana returns to clinic today for a follow up evaluation regarding her chronic dispersed body pain. I have reviewed the [facility] database and did not find any [...] in leg, unspecified (ICD-10 - M79.606) 05/08/2023 Other chronic pain (ICD-10 - G89.29) Mariana returns to clinic today for a follow up evaluation regarding her chronic pain. I have reviewed the [place] [facility] database and did not find any inconsistencies. [...] or concerns. 03/13/2023 Fibromyalgia (ICD-10 - M79.7) 03/08/2023 Fibromyalgia (ICD-10 - M79.7) 03/07/2023 Fibromyalgia (ICD-10 - M79.7) 01/16/2023 Fibromyalgia (ICD-10 - M79.7) 10/25/2022 Fibromyalgia (ICD-10 - M79.7) 09/27/2022 Fibromyalgia (ICD-10 - M79.7) 09/27/2022 Other chronic pain (ICD-10 - G89.29) Mariana is a 47-year-old female who returns to clinic today for follow up of chronic dispersed body pain. I have reviewed the [place] [facility] database and did not find any inconsistencies. [...] dispersed body pain. I have reviewed the [place] [facility] database and did not find any inconsistencies. [...] dispersed body pain. I have reviewed the [facility] database and did not find any [...] to feet pain. I have reviewed the [place] [facility] database and did not find any inconsistencies. [...] her chronic pain. I have reviewed the [facility] database and we discussed her current symptoms and medications. Due to her recent procedure and long-term treatment, Mariana has been prescribed sufficient pain medication for the time being. I have obtained ROIs to [facility] and the long-term for further evaluation of her most recent treatment history. Otherwise she will follow up in a week to further discuss medication management. This treatment plan was reviewed with Mariana, and she was agreeable. Plan:1. BRITNEY to [facility] and nursing home2. Continue Oxycodone 20mg BID3. [...] her chronic pain. I have reviewed the [place] [facility] database and did not find any inconsistencies. [...] with any questions, problems or concerns. 08/29/2023 Other chronic pain (ICD-10 - G89.29) Mariana returns to clinic today for a follow up evaluation regarding her chronic dispersed body pain. I have reviewed the [place] [facility] database and did not find any inconsistencies. [...] any questions, problems or concerns. 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 I have reviewed the [facility] database and did not find any [...] dispersed body pain. I have reviewed the [facility] database and did not find any [...] dispersed body pain. I have reviewed the [place] [facility] database and did not find any inconsistencies. [...] dispersed body pain. I have reviewed the [facility] database and did not find any [...] any questions, problems or concerns. 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 All documentation has been reviewed by the aforementioned PANico. Mechelle, Anton Griffin PA-C, attest that the [...] documentation has been reviewed by the aforementioned PA-Dwain. Anton Min PA-C, attest that the above [...] has been reviewed by the aforementioned PANico. Anton Min PA-C, attest that the above [...] has been reviewed by the aforementioned MIRELLA. IAnton PA-C, attest that the above named individual [...] the decisions made by her. 03/07/2023 Other Mechelle, Vickey Crandall Tae, am serving as a [...] the decisions made by me. 03/08/2023 Other Navneet Min , am serving as [...] the decisions made by her. 11/21/2022 Other Maribel Min, am serving as a scribe to [...] the decisions made by her. 03/13/2023 Other Vickey Min, am serving as a [...] the decisions made by me. 07/31/2023 Other I, Iain De Santiago, am serving as a scribe to document [...] performed and the decisions made by her. 08/29/2023 Other Mechelle, Hernandez royal, am serving as a scribe to document [...] during the clinic visit. PLAN OF TREATMENT Next Appt Details Provider Name:Anton schmidt, 08/29/2023 02:00:00 PM, [address], [address], [place], [address], Insurance Providers Payer Name Payer Address Payer Phone Subscriber Number Group Number Insured Name Patient Relationship to Insured Coverage Start Date Coverage End Date [facility] Complete/A LEYDA [address] [address] [place] [address] [id number] Mariana Muhammad Self - patient is the insured 4 [employer] [address] [place] [address] [id number] Mariana Muhammad Self - patient is the insured 4 Medicare Part B [employer] [address] [place] [address] [id number] Mariana Muhammad Self - patient is the insured 3 [place] [facility] [address] [address] [place], [place] [phone] [id number] Mariana Muhammad Self - patient is the [...]
--- OUTSIDE RECORDS SUMMARY | 2023-08-29 10:38 | XMS_ITS | Encounter Summary ---
Author Organization [facility] Address [address] [place] [address] Care Team Providers Care Bread Wrapper Name Role Phone Elsewhere, Pcp Primary Care Provider Unavailabl e Encounter Details Date Type Department Care Team (Late st Contact Info) Description 08/21/2014 Historical Ophthalmology [facility] Adolph De Santiago M.D., Ph.D. [address] [place] [id number] Social History Tobacco Use Types Packs/Day Years Used Date Smoking Tobacco: Never Assessed Sex and Gender Information Value Date Recorded Sex Assigned at Female 01/25/2022 2:30 PM LAMP STACK DEVELOPER Gender Identity Female 01/25/2022 2:30 PM LAMP STACK DEVELOPER Sexual Orientation Straight 01/25/2022 2: 30 PM LAMP STACK DEVELOPER documented as of this encounter Progress [...] eye or something. She was inpatient at [facility] in April [address] Marroquin for a right periorbital lesion.On 04/29/14, ENT took the patient to the operating room and performed an aspiration and culture, orbital, periorbital, and paranasal sinus contents. Pathology showed chronic inflammation with no sign of infection. The patient was transferred to [facility] yesterday (08/20/14) from [facility] in [place] for right sided hemiplegia and hemisensory loss [...] has not followed-up in 3-5 years witha prop attendant. She presented to the [place] ED with progressive right sided hemisensory loss, [...] at home she has been taking Lyrica, Cascade, and Vicodin; however she is unsure what [...] light perception) CDM Reports - [facility] Id: [id number] Status: Fnl documented in this encounter Plan of Treatment Not on file documented as of this encounter Visit Diagnoses Not on filedocumented in this encounter Additional Health Concerns Infection Onset Date Last Indicated Resolved Time COVID19 Pending 12/17/2020 12/17/2020 01/06/2021 4 :54 AM LAMP STACK DEVELOPER documented as of this encounter Care Teams Bread Wrapper Relationship Specialty Start Date End Date Elsewhere, Pcp PCP - General Family Medicine 12/19/20 documented as of this encounter
--- OUTSIDE RECORDS SUMMARY | 2023-08-29 10:38 | XMS_ITS | Encounter Summary ---
Author Organization [facility] Address [address] [place] [address] Care Team Providers Care Packaging Clerk Name Role Phone Elsewhere, Pcp Primary Care Provider Unavailabl e Encounter Details Date Type Department Care Team (Late st Contact Info) Description 12/15/2014 Historical Ophthalmology [facility] Adolph De Santiago M.D., Ph.D. [address] [place] [address] Social History Tobacco Use Types Packs/Day Years Used Date Smoking Tobacco: Never Assessed Sex and Gender Information Value Date Recorded Sex Assigned at Female 01/25/2022 2:30 PM ORCHID TRANSPLANTER Gender Identity Female 01/25/2022 2:30 PM ORCHID TRANSPLANTER Sexual Orientation Straight 01/25/2022 2: 30 PM ORCHID TRANSPLANTER documented as of this encounter Progress Notes [...] light perception) CDM Reports - [facility] Id: [id number] Status: Fnl documented in this encounter Plan of Treatment Not on file documented as of this encounter Visit Diagnoses Not on filedocumented in this encounter Additional Health Concerns Infection Onset Date Last Indicated Resolved Time COVID19 Pending 12/17/2020 12/17/2020 01/06/2021 4 :54 AM ORCHID TRANSPLANTER documented as of this encounter Care Teams Packaging Clerk Relationship Specialty Start Date End Date Elsewhere, Pcp PCP - General Family Medicine 12/19/20 documented as of this encounter
--- OUTSIDE RECORDS SUMMARY | 2023-08-29 10:39 | XMS_ITS | Encounter Summary ---
Author Organization [facility] Address [address] [place] [address] Care Team Providers Care Tower Attendant Name Role Phone Elsewhere, Pcp Primary Care Provider Unavailabl e Encounter Details Date Type Department Care Team (Late st Contact Info) Description 02/16/2004 Historical Ophthalmology [facility] O[facility] Roddy Palmer M.D. [address] [place] [address] Social History Tobacco Use Types Packs/Day Years Used Date Smoking Tobacco: Never Assessed Sex and Gender Information Value Date Recorded Sex Assigned at Female 01/25/2022 2:30 PM COMPANY LAUNDRY WORKER Gender Identity Female 01/25/2022 2:30 PM COMPANY LAUNDRY WORKER Sexual Orientation Straight 01/25/2022 2: 30 PM COMPANY LAUNDRY WORKER documented as of this encounter Progress [...] #3 Pars planitis L CDM Reports - [facility] Id: [id number] Status: Fnl documented in this encounter Plan of Treatment Not on file documented as of this encounter Visit Diagnoses Not on filedocumented in this encounter Additional Health Concerns Infection Onset Date Last Indicated Resolved Time COVID19 Pending 12/17/2020 12/17/2020 01/06/2021 4 :54 AM COMPANY LAUNDRY WORKER documented as of this encounter Care Teams Tower Attendant Relationship Specialty Start Date End Date Elsewhere, Pcp PCP - General Family Medicine 12/19/20 documented as of this encounter
--- OUTSIDE RECORDS SUMMARY | 2023-08-29 10:39 | XMS_ITS | Encounter Summary ---
Author Organization [facility] Address [address] [place] [address] Care Team Providers Care Tank Farm Attendant Name Role Phone Elsewhere, Pcp Primary Care Provider Unavailabl e Encounter Details Date Type Department Care Team (Late st Contact Info) Description 07/20/2006 Historical Ophthalmology [facility] Roddy Palmer M.D. [address] [place] [address] Social History Tobacco Use Types Packs/Day Years Used Date Smoking Tobacco: Never Assessed Sex and Gender Information Value Date Recorded Sex Assigned at Female 01/25/2022 2:30 PM BLOOD BANK WORKER Gender Identity Female 01/25/2022 2:30 PM BLOOD BANK WORKER Sexual Orientation Straight 01/25/2022 2: 30 PM BLOOD BANK WORKER documented as of this encounter Progress [...] visual changes, left eye. CD [facility] Id: [id number] Status: Fnl documented in this encounter Plan of Treatment Not on file documented as of this encounter Visit Diagnoses Not on filedocumented in this encounter Additional Health Concerns Infection Onset Date Last Indicated Resolved Time COVID19 Pending 12/17/2020 12/17/2020 01/06/2021 4 :54 AM BLOOD BANK WORKER documented as of this encounter Care Teams Tank Farm Attendant Relationship Specialty Start Date End Date Elsewhere, Pcp PCP - General Family Medicine 12/19/20 documented as of this encounter
--- OUTSIDE RECORDS SUMMARY | 2023-08-29 10:39 | XMS_ITS | Encounter Summary ---
Author Organization [facility] Address [address] [place] [address] Care Team Providers Care Steno Typist Name Role Phone Elsewhere, Pcp Primary Care Provider Unavailabl e Encounter Details Date Type Department Care Team (Late st Contact Info) Description 01/22/2004 Historical Ophthalmology [facility] Roddy Palmer M.D. [address] [place] [address] Social History Tobacco Use Types Packs/Day Years Used Date Smoking Tobacco: Never Assessed Sex and Gender Information Value Date Recorded Sex Assigned at Female 01/25/2022 2:30 PM CANT HOOKER Gender Identity Female 01/25/2022 2:30 PM CANT HOOKER Sexual Orientation Straight 01/25/2022 2: 30 PM CANT HOOKER documented as of this encounter Progress Notes [...] from a refration. Will continue prednisolone at [facility], recheck 3 weeks with refraction. DIAGNOSIS #1 Episcleritis, scleritis #2 Optic atrophy R #3 Pars planitis L CDM Reports - [facility] Id: [id number] Status: Fnl documented in this encounter Plan of Treatment Not on file documented as of this encounter Visit Diagnoses Not on filedocumented in this encounter Additional Health Concerns Infection Onset Date Last Indicated Resolved Time COVID19 Pending 12/17/2020 12/17/2020 01/06/2021 4 :54 AM CANT HOOKER documented as of this encounter Care Teams Steno Typist Relationship Specialty Start Date End Date Elsewhere, Pcp PCP - General Family Medicine 12/19/20 documented as of this encounter
--- OUTSIDE RECORDS SUMMARY | 2023-08-29 10:39 | XMS_ITS | Encounter Summary ---
Author Organization [facility] Address [address] [place] [address] Care Team Providers Care Head Of Music Name Role Phone Elsewhere, Pcp Primary Care Provider Unavailabl e Encounter Details Date Type Department Care Team (Late st Contact Info) Description 01/11/2004 Historical Ophthalmology RST O[facility] Esequiel Reyes M.D. Social History Tobacco Use Types Packs/Day Years Used Date Smoking Tobacco: Never Assessed Sex and Gender Information Value Date Recorded Sex Assigned at Female 01/25/2022 2:30 PM CREMATORY ATTENDANT Gender Identity Female 01/25/2022 2:30 PM CREMATORY ATTENDANT Sexual Orientation Straight 01/25/2022 2: 30 PM CREMATORY ATTENDANT documented as of this encounter Progress Notes [...] planitis L CDM Reports - EYEGEN Id: [id number] Status: Fnl documented in this encounter Plan of Treatment Not on file documented as of this encounter Visit Diagnoses Not on filedocumented in this encounter Additional Health Concerns Infection Onset Date Last Indicated Resolved Time COVID19 Pending 12/17/2020 12/17/2020 01/06/2021 4 :54 AM CREMATORY ATTENDANT documented as of this encounter Care Teams Head Of Music Relationship Specialty Start Date End Date Elsewhere, Pcp PCP - General Family Medicine 12/19/20 documented as of this encounter
--- OUTSIDE RECORDS SUMMARY | 2023-08-29 10:39 | XMS_ITS | Encounter Summary ---
Author Organization [facility] Address [address] [place] [address] Care Team Providers Care Speech Language Pathology Assistant Name Role Phone Elsewhere, Pcp Primary Care Provider Unavailabl e Encounter Details Date Type Department Care Team (Late st Contact Info) Description 01/07/2004 Historical Ophthalmology RST OPH Esequiel Reyes M.D. Social History Tobacco Use Types Packs/Day Years Used Date Smoking Tobacco: Never Assessed Sex and Gender Information Value Date Recorded Sex Assigned at Female 01/25/2022 2:30 PM JIG HAND Gender Identity Female 01/25/2022 2:30 PM JIG HAND Sexual Orientation Straight 01/25/2022 2: 30 PM JIG HAND documented as of this encounter Progress [...] #4 Photophobia CDM Reports - EYEGEN Id: [id number] Status: Fnl documented in this encounter Plan of Treatment Not on file documented as of this encounter Visit Diagnoses Not on filedocumented in this encounter Additional Health Concerns Infection Onset Date Last Indicated Resolved Time COVID19 Pending 12/17/2020 12/17/2020 01/06/2021 4 :54 AM JIG HAND documented as of this encounter Care Teams Speech Language Pathology Assistant Relationship Specialty Start Date End Date Elsewhere, Pcp PCP - General Family Medicine 12/19/20 documented as of this encounter
--- OUTSIDE RECORDS SUMMARY | 2023-08-29 10:39 | XMS_ITS | Referral Summary ---
Author Organization [facility] Address [address] [place] [id number] Care Team Providers Care Typing Section Chief Name Role Phone Roddy Trevino Primary Care [...] (198 lb 9.6 oz) 04/10/2012 9:25 AM NIPPLE THREADER Height 171 cm (5' 7.32) 04/10/2012 9:2 5 AM NIPPLE THREADER Body Mass Index 30.81 04/10/2012 9:25 AM NIPPLE THREADER Plan of Treatment Not on file Care Teams Typing Section Chief Relationship Specialty Start Date End Date Roddy Trevino PCP - General 12/14/10
--- OUTSIDE RECORDS SUMMARY | 2023-08-29 10:39 | XMS_ITS | Encounter Summary ---
Author Organization [facility] Address [address] [place] [address] Care Team Providers Care Senior Naval Parachutist Name Role Phone Elsewhere, Pcp Primary Care Provider Unavailabl e Encounter Details Date Type Department Care Team (Late st Contact Info) Description 03/11/2002 Historical Ophthalmology RST OPH Carlos Zendejas M.D. [address] [facility] [place] [address] Social History Tobacco Use Types Packs/Day Years Used Date Smoking Tobacco: Never Assessed Sex and Gender Information Value Date Recorded Sex Assigned at Female 01/25/2022 2:30 PM ACTIVITIES DIRECTOR SCOUTING Gender Identity Female 01/25/2022 2:30 PM ACTIVITIES DIRECTOR SCOUTING Sexual Orientation Straight 01/25/2022 2: 30 PM ACTIVITIES DIRECTOR SCOUTING documented as of this encounter Progress Notes [...] rechek prn CDM Reports - EYEGEN Id: [id number] Status: Fnl documented in this encounter Plan of Treatment Not on file documented as of this encounter Visit Diagnoses Not on filedocumented in this encounter Additional Health Concerns Infection Onset Date Last Indicated Resolved Time COVID19 Pending 12/17/2020 12/17/2020 01/06/2021 4 :54 AM ACTIVITIES DIRECTOR SCOUTING documented as of this encounter Care Teams Senior Naval Parachutist Relationship Specialty Start Date End Date Elsewhere, Pcp PCP - General Family Medicine 12/19/20 documented as of this encounter
--- OUTSIDE RECORDS SUMMARY | 2023-08-29 10:39 | XMS_ITS | Clinical Summary ---
Author Organization [facility] Address [address] [place] [address] Care Team Providers Care Cisco Unified Communications Engineer Name Role Phone Roddy Trevino Primary Care [...] (198 lb 9.6 oz) 04/10/2012 9:25 AM SALES ACCOUNT EXECUTIVE Height 171 cm (5' 7.32) 04/10/2012 9:2 5 AM SALES ACCOUNT EXECUTIVE Body Mass Index 30.81 04/10/2012 9:25 AM SALES ACCOUNT EXECUTIVE Plan of Treatment Not on file Care Teams Cisco Unified Communications Engineer Relationship Specialty Start Date End Date Roddy Trevino PCP - General 12/14/10
--- OUTSIDE RECORDS SUMMARY | 2023-08-29 10:39 | XMS_ITS | Encounter Summary ---
Author Organization [facility] Address [address] [place] [address] Care Team Providers Care Communications Technician Name Role Phone Elsewhere, Pcp Primary Care Provider Unavailabl e Encounter Details Date Type Department Care Team (Late st Contact Info) Description 04/29/2014 Historical Ophthalmology [facility] OPH Gracie Marroquin M.D. [address] [place] [id number] Social History Tobacco Use Types Packs/Day Years Used Date Smoking Tobacco: Never Assessed Sex and Gender Information Value Date Recorded Sex Assigned at Female 01/25/2022 2:30 PM ASSEMBLER GOLD FRAME Gender Identity Female 01/25/2022 2:30 PM ASSEMBLER GOLD FRAME Sexual Orientation Straight 01/25/2022 2: 30 PM ASSEMBLER GOLD FRAME documented as of this encounter Progress Notes [...] Patient had a dilated eye exam at [facility] wit Dr. Price on 04/27/14 swelling and pain of the right eye. His exam indicated a third nerve palsy and the patient was referred to Neurology at that time. She presented to [place] ED later that day and was admitted [...] Exam: MRI Hd wo&w Indications: ED Acute /MRI Head/? galdino santos w R CN 3/5 palsy. special orb; t ORIGINAL REPORT - 27-Apr-2014 19:39:00 [facility] EXAM: MRI Brain without and with IV [...] surgery. Electronically signed by: Leatha Gunderson MD [id number] 27-Apr-2014 19:39 HR: confirmed above history. syptoms x last 1 week, pain around right eye, numbness and tingling inupper right face/forehead IMPRESSION / REPORT / PLAN Consult requested by: NEURO [phone] #1 Orbital inflammation, right #2 History of [...] Pseudophakia, left CDM Reports - EYEGEN Id: [id number] Status: Fnl documented in this encounter Plan of Treatment Not on file documented as of this encounter Visit Diagnoses Not on filedocumented in this encounter Additional Health Concerns Infection Onset Date Last Indicated Resolved Time COVID19 Pending 12/17/2020 12/17/2020 01/06/2021 4 :54 AM ASSEMBLER GOLD FRAME documented as of this encounter Care Teams Communications Technician Relationship Specialty Start Date End Date Elsewhere, Pcp PCP - General Family Medicine 12/19/20 documented as of this encounter
--- OUTSIDE RECORDS SUMMARY | 2023-08-29 10:39 | XMS_ITS | Clinical Summary ---
Author Organization [employer] [facility] Address [place], [place] [address] Care Team Providers Care Corn Crop Supervisor Name Role Phone Laurence Mujica Primary Care Provider [phone] Yumiko Garcia PREPARATION CENTER COORDINATOR Unavailable Unavailable Nga White MD Unavailable [phone] [facility], Darragh Unavailable [facility], Darragh Unavailable Allergies Active Allergy Reactions Criticality Noted [...] High 07/23/2007 Morphine Chest Pain,Palpitations 11/20/2012 Tolerated Disputanta 04/21/2014 And chest pains Mushroom Anaphylaxis High [...] bladder disorder,Multiple sclerosis (HC) As directed. 14 Bhutanese straight cath for self cath up to [...] bed. Length of need 99 months. Bed cardiovascular surgeon:no 1 Each 10/04/19 22 Active Gauze Bandage [...] continuous glucose monitor READER (FreeStyle Keegan 2 [place])Indications :diabetes mellitus [The details of the medication [...] by a home health clinician.] 6 Each 12 03/27/19 24 024 Discontinued(*M ed complete/Regime n complete/Level of care change) oxyCODONE (ROXICODONE) 5 mg immediate release tablet Take 20 mg by mouth two times daily. May take additional 20 mg dose as needed for severe pain 024 Discontinued(*D iscontinued by another clinician) cariprazine (Vraylar) 1.5 mg capsuleIndications :depression associated [...] loss in right eye. Was seen at [place] by neurology and rheumatology, apparently had characteristic MRI with demyelinating lesions but numerous lumbar punctures have not demonstrated CSF protein abnormalities. Has been seen at [facility] neurology clinic. Currently following with Dr. Shepherd at [facility]. Started on Tysabri (monoclonal baldo) infusions in 2007. Continues to have progressive symptoms. 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 12/06/15--Neurologist is Dr. Ab Whittington- location [facility] ext [phone]. Currently [...] 02/25/2021 02/25/2021 Overview: Overview: Created by Conversion [facility] Annotation: May 09 2011 2:19PM - [...] Encounters Date Type Department Care Team Description 08/27/2023 2:15 PM CDT Home Care Visit [facility] [address] [place] [address], [place] [address] Ivette Martinez, CALLUM SN - HOME VISIT 08/24/2023 11:30 AM CDT Home Care Visit [facility] [address] [place] [address], [place] [address] Socorro Barajas LPN TRANSIT WORKER - HOME VISIT 08/20/2023 12:30 PM CDT Home Care Visit [address] [place] [address] Torie Shea RN SN - HOME VISIT 08/17/2023 1:30 PM CDT Home Care Visit [address] [place] [address] Socorro Barajas LPN TRANSIT WORKER - MISSED VISIT 08/17/2023 Home Care Visit [address] [place] [address] Luisa Velasquez RN CARE COORDINATION 08/16/2023 11:00 AM CDT Office Visit [address] [phone] Nga White MD Non-billable 08/16/2023 10:30 AM CDT Nurse/Clinic Staff Only [address] [address] Nurse/Clinic Staff Only (Suprapubic catheter exchange) 08/16/2023 Travel 08/16/2023 Home Care Visit [address] [place] [address] Luisa Velasquez, CALLUM SN - TELEHEALTH VISIT 08/13/2023 12:00 PM CDT Home Care Visit [facility] [address] [facility] [place] [address] Socorro Barajas LPN TRANSIT WORKER - HOME VISIT 08/10/2023 12:00 PM CDT Home Care Visit [facility] [address] [facility] [place] [address] Ivette Martinez, CALLUM SN - HOME VISIT 08/10/[address] [place] [address] Laurence Mujica, PA Questions 08/10/2023 Home Care Visit [facility] [address] [place] [phone] Luisa Velasquez, CALLUM CARE COORDINATION 08/07/2023 10:00 AM CDT Home Care Visit [facility] [address] [place] [phone] Denisse Cueto LISW STEEL BARREL REAMER - INITIAL ASSESSMENT 08/07/2023 Home Care Visit [facility] [address] [place] [phone] Luisa Velasquez RN SN - TELEHEALTH VISIT 08/06/2023 1:30 PM CDT Home Care Visit [facility] [address] [place] [phone] Socorro Barajas LPN TRANSIT WORKER - HOME VISIT 08/04/2023 Home Care Visit [facility] [address] [place] [phone] Luisa Velasquez RN SN - MISSED VISIT 08/03/2023 12:40 PM CDT - 08/03/2023 3:23 PM CDT Emergency [facility] [address] [facility] [place] [address] Lane Barahona PA Open wound of left chest wall, subsequent encounter (Primary Dx); Chronic suprapubic catheter (HC) Discharge Disposition: Home Self Care 08/03/2023 Home Care Visit [facility] [address] [place] [address] Denisse Cueto LISW STEEL BARREL REAMER - CASE COMMUNICATION 08/03/2023 Orders Only [facility] [address] [place] [facility] [place] [address] Laurence Mujica PA <No scans attached> 08/03/2023 Travel 08/03/2023 Home Care Visit [facility] [address] [place] [address] Luisa Velasquez, CALLUM CARE COORDINATION 08/02/2023 4:30 PM CDT Home Care Visit [facility] [address] [place] [phone] Josi Sosa, RN SN - PRN HOME VISIT 08/02/2023 10:30 AM CDT - 08/02/2023 11:59 PM CDT Hospital Encounter [facility] [address] [place] [address] Left breast abscess 08/02/2023 Telephone [facility] [address] [address] Josi Sosa, shipping/receiving manager (Patient sent to ED.) 08/02/2023 Home Care Visit [facility] [address] [place] [address] Luisa Velasquez, RN CARE COORDINATION 08/02/2023 Travel 08/01/2023 Home Care Visit [facility] [address] [place] [phone] Luisa Velasquez, CALLUM SN - TELEHEALTH VISIT 07/30/2023 3:30 PM CDT Home Care Visit [facility] [address] [place] [address] Josi Sosa, RN SN - HOME VISIT 07/30/2023 Home Care Visit [facility] [address] [place] [phone] Luisa Velasquez, RN CARE COORDINATION 07/28/[address] [phone] Laurence Mujica PA Refill Request (Linzess) 07/27/2023 1:00 PM CDT Home Care Visit [facility] [address] [place] [phone] Ivette Martinez, CALLUM SN - HOME VISIT 07/27/2023 Home Care Visit [facility] [address] [place] [phone] Luisa Velasquez, CALLUM CARE COORDINATION 07/27/2023 Telephone [facility] [address] [place] [phone] Luias Velasquez, shipping/receiving manager 07/26/2023 Telephone [facility] [address] [place] [address] Laurence Mujica PA Questions (Catheter ) 07/26/2023 Home Care Visit [facility] [address] [place] [phone] Luisa Velasquez, CALLUM CARE COORDINATION 07/23/2023 12:00 PM CDT Home Care Visit [facility] [address] [place] [phone] Radha Bob RN SN - LONG VISIT (>90 MINUTES) 07/23/2023 Home Care Visit [facility] [address] [place] [phone] Luisa Velasquez RN CARE COORDINATION 07/20/2023 12:00 PM CDT Home Care Visit [facility] [address] [place] [phone] Socorro Barajas LPN LPN - HOME VISIT 07/19/2023 Telephone [facility] [address] [place] [address] Socorro Barajas LPN Breast Problem (Wound on (L) breast) 07/16/2023 12:00 PM CDT Home Care Visit [facility] [address] [facility] [place] [address] Socorro Barajas LPN TRANSIT WORKER - HOME VISIT 07/13/2023 1:00 PM CDT Home Care Visit [facility] [address] [facility] [place] [phone] Orlando Escobar, RN SN - WOUND HOME VISIT 07/12/2023 Transcribe Orders [facility] [address] [place] [address] Sole Noel MD 07/09/2023 12:50 PM CDT Office Visit [facility] [address] [place] [address] Laurence Mujica PA Derm Problem (Check breast-has a 'hole with yellow drainage'-also needs cream for stomach) 07/09/2023 9:00 AM CDT Home Care Visit [facility] [address] [place] [address], [place] [phone] Radha Bob RN SN - HOME VISIT 07/09/2023 Orders Only [facility] [address] [place] [address] Laurence Mujica PA <No scans attached> 07/08/2023 Travel 07/07/2023 10:30 AM CDT Home Care Visit [facility] [address] [place] [phone] Radha Bob RN SN - LONG VISIT (>90 MINUTES) 07/06/2023 1:00 PM CDT Home Care Visit [facility] [address] [place] [address], [place] [phone] Ivette Martinez RN SN - WOUND HOME VISIT 07/06/2023 Home Care Visit [facility] [address] [place] [address], [place] [phone] Maria Victoria Mcintosh, PT PT - DISCIPLINE DISCHARGE 07/06/2023 Orders Only [facility] [address] [place] [address] Laurence Mujica PA <No scans attached> 07/06/2023 Home Care Visit [facility] [address] [place] [address], [place] [address] Maria Victoria Mcintosh, PT CARE COORDINATION 07/05/2023 Home Care Visit [facility] [address] [place] [address], [place] [address] Maria Victoria Mcintosh, PT PT - MISSED VISIT 07/04/2023 8:00 AM CDT Home Care Visit [facility] [address] [place] [address], [place] [address] Orlando Escobar RN SN - OASIS RECERTIFICATION 07/04/2023 Plan of Care Documentation [facility] [address] [place] [address], [place] [phone] 07/03/2023 12:00 PM CDT Home Care Visit [facility] [address] [place] [address], [place] [address] Luisa Burnett, PT PT - HOME VISIT 07/02/2023 8:30 AM CDT Home Care Visit [facility] [address] [place] [address], [place] [phone] Radha Bob, RN SN - WOUND HOME VISIT 07/01/2023 8:30 AM CDT Home Care Visit [facility] [address] [place] [address], [place] [address] Radha Bob, RN SN - WOUND HOME VISIT 06/30/2023 12:00 PM CDT Home Care Visit [facility] [address] [place] [address], [place] [address] Radha Bob, RN SN - WOUND HOME VISIT 06/29/2023 9:00 AM CDT Home Care Visit [facility] [address] [place] [phone] Orlando Escobar, RN SN - WOUND HOME VISIT 06/28/2023 10:15 AM CDT Home Care Visit [facility] [address] [place] [phone] Luisa Burnett, PT PT - WOUND HOME VISIT 06/28/2023 Telephone [facility] [address] [place] [address] Luisa Burnett, PT Home Care 06/27/2023 12:30 PM CDT Home Care Visit [facility] [address] [place] [phone] Orlando Escobar RN SN - WOUND HOME VISIT 06/26/2023 10:15 AM CDT Home Care Visit [facility] [address] [place] [phone] Luisa Burnett, PT PT - WOUND HOME VISIT 06/25/2023 10:30 AM CDT Home Care Visit [facility] [address] [place] [phone] Orlando Escobar RN SN - WOUND HOME VISIT 06/24/2023 11:00 AM CDT Home Care Visit [facility] [address] [place] [phone] Radha Bob RN SN - HOME VISIT 06/23/2023 10:30 AM CDT Home Care Visit [facility] [address] [place] [phone] Radha Bob RN SN - HOME VISIT 06/22/2023 10:30 AM CDT Home Care Visit [facility] [address] [place] [phone] Orlando Escobar RN SN - WOUND HOME VISIT 06/21/2023 11:30 AM CDT Office Visit [facility] [address] [facility] [address] [place] [address] Tata Cruz PA Surgical Followup (Check open wound on her left breast S/P Bilateral Breast Reduction with free nipple graft on 05/09/23 with Yazmin) 06/21/2023 10:30 AM CDT Home Care Visit [facility] [address] [place] [address] Luisa Burnett, PT PT - MISSED VISIT 06/21/2023 Travel 06/21/2023 Telephone [facility] [address] [phone] Alfredo Arce MD Post-op Pain/problem (Wound on left breast) 06/20/2023 12:00 PM CDT Home Care Visit [facility] [address] [place] [phone] Orlando Escobar RN SN - WOUND HOME VISIT 06/20/2023 4:00 AM CDT Home Care Visit [facility] [address] [place] [phone] Laurence Clemons, RN SN - WOUND/OSTOMY CHART CONSULT 06/20/2023 Travel 06/20/2023 Telephone [facility] [address] [place] [address] Laurence Clemons, shipping/receiving manager (Wound care plan - requesting wound vac) 06/19/2023 1:30 PM CDT Home Care Visit [facility] [address] [place] [phone] Luisa Burnett, PT PT - MISSED VISIT 06/19/2023 10:48 AM CDT - 06/19/2023 2:12 PM CDT Emergency [facility] [address] [place] [address] Alison Elmore, JUDE Breast abscess (Primary Dx); Cellulitis, unspecified cellulitis site; Wound dehiscence Discharge Disposition: Home Self Care 06/19/2023 Telephone [facility] [address] [phone] Alfredo Arce MD Appointment Reminder; Appointment Request 06/19/2023 Travel 06/19/2023 Nurse Triage [facility] [address] [place] [address] Laurence Mujica PA Home Care (Pain ) 06/19/2023 Nurse Triage [facility] [address] [place] [address] Laurence Mujica PA Pain In Breast 06/18/2023 5:00 PM CDT Home Care Visit [facility] [address] [place] [phone] Radha Bob, CALLUM SN - WOUND HOME VISIT 06/18/2023 Home Care Visit [address] [phone] Radha Bob, RN CARE COORDINATION 06/17/2023 8:00 AM CDT Home Care Visit [address] [phone] Radha Bob RN SN - WOUND HOME VISIT 06/16/2023 3:30 PM CDT Home Care Visit [address] [phone] Radha Bob RN SN - WOUND HOME VISIT 06/15/2023 1:15 PM CDT Home Care Visit [address] [phone] Socorro Barajas LPN TRANSIT WORKER - HOME VISIT 06/14/2023 12:30 PM CDT Home Care Visit [address] [phone] Orlando Escobar, RN SN - HOME VISIT 06/14/2023 10:30 AM CDT Home Care Visit [address] [phone] Luisa Burnett PT PT - HOME VISIT 06/13/2023 12:30 PM CDT Home Care Visit [address] [phone] Socorro Barajas LPN TRANSIT WORKER - MISSED VISIT 06/13/2023 Home Care Visit [facility] [address] [place] [address], [place] [address] Orlando Escobar, RN CARE COORDINATION 06/12/2023 9:00 AM CDT Home Care Visit [facility] [address] [place] [address], [place] [address] Luisa Burnett, PT PT - HOME VISIT 06/12/2023 Home Care Visit [facility] [address] [place] [phone] Orlando Escobar, RN SN - MISSED VISIT 06/12/2023 Telephone [facility] [address] [place] [address] Laurence Mujica PA Form (Jur Duty) 06/11/2023 4:00 PM CDT Home Care Visit [facility] [address] [place] [phone] Radha Bob RN SN - WOUND HOME VISIT 06/11/2023 Telephone [facility] [address] [place] [address] Laurence Mujica PA Letter 06/10/2023 9:00 AM CDT Home Care Visit [place] [phone] [place] [phone] Orlando Escobar, RN SN - WOUND HOME VISIT 06/09/2023 9:00 AM CDT Home Care Visit [facility] [address] [place] [address], [place] [address] Orlando Escobar, RN SN - WOUND HOME VISIT 06/08/2023 1:30 PM CDT Home Care Visit [facility] [address] [place] [address], [place] [address] Laurence Clemons RN SN - WOUND/OSTOMY CHART CONSULT 06/08/2023 12:00 PM CDT Home Care Visit [facility] [address] [facility] [place] [address] Orlando Escobar, RN SN - INITIAL ASSESSMENT 06/07/2023 4:00 PM CDT Home Care Visit [facility] [address] [facility] [place] [address] Luisa Burnett, PT PT - OASIS RESUMPTION OF CARE 06/07/2023 Telephone [facility] [address] [place] [address] Luisa Burnett, PT Home Care 06/07/2023 Telephone [facility] [address] [place] [address] Luisa Burnett, PT Home Care 06/06/2023 Patient Outreach [address] [address] Felicita Dickinson RN Primary RN Care Management; Hospital F/U (LACE 80) 06/05/2023 Travel 06/04/2023 Travel 06/04/2023 Telephone [facility] [address] [phone] Alfredo Arce MD Surgical Followup (Wound under left breast/S/p: Bilateral Breast Reduction/DOS: 05/09/2023/Surgeon: Alfredo Arce//) 06/03/2023 Home Care Visit [facility] [address] [place] [address] Luisa Burnett, PT PT - OASIS TRANSFER 06/01/2023 8:28 PM CDT - 06/05/2023 12:30 PM CDT Hospital Encounter [facility] [address] [place] [address] Lane Barahona, Rory Bonner, DO Dang, JUDE Couch Renae Ann, NP [...] PM CDT Home Care Visit [facility] [address] [place] [address] Luisa Burnett, PT PT - HOME VISIT 05/30/2023 Refill [facility] [address] [place] [address] Laurence Mujica PA Refill Request (Ondansetron) from Last 3 Months Immunizations Name Administration [...] Used Date Smoking Tobacco: Former Cigarettes 2 40.6 S tarted: 1983 Smokeless Tobacco: Former Quit: [...] Sign Reading Time Taken Comments Blood Pressure 110/68 08/27/2023 2:24 PM CDT Pulse 86 08/27/2023 2:24 PM CDT Temperature 36.4 ??C (97.5 ??F) 08/27/2023 2:24 PM CD T Respiratory Rate 18 08/27/2023 2:24 PM CDT Oxygen Saturation 97% 08/27/2023 2:24 PM CDT Inhaled Oxygen Concentration - - Weight 85.4 kg (188 lb 4.8 oz) 08/03/2023 12:48 PM CDT Height 172.7 cm (5' 8) 08/03/2023 12:48 PM CDT Body Mass Index 28.63 08/03/2023 12:48 PM CDT Plan of Treatment Upcoming Encounters Date Type Department Care Team (Late st Contact Info) Description 08/30/2023 Home Care Visit [facility] [address] [place] [address] Luisa Velasquez, RN [address] [place] [address] 08/30/2023 10:30 AM CDT Appointment [facility] 200 [facility] [address] 08/31/2023 4:00 AM CDT Appointment [facility] [address] [place] [phone] 09/05/2023 10:30 AM CDT Nurse/Clinic Staff Only [facility] [address] [place] [address] 09/11/2023 1:10 PM CDT Office Visit [facility] [address] [place] [address] Laurence Mujica PA [address] [place] [address] Health Maintenance Due Date Last Done Comments [...] STAT 06/02/2023 12:07 AM CDT URINE CULTURE MALUO 06/01/2023 10:08 PM CDT URINALYSIS MICROSCOPIC STAT [...] CULTURE, STAIN STAT 06/01/2023 8:47 PM CDT LIPID PANEL W REFLEX MEASURED LDL [...] ??Pain and infection ??Alternatives discussed: ??No treatment [place] protocol: ??Procedure explained and questions answered to [...] None Seen /HPF 08/03/2023 2:33 PM CDT [facility] WBC 0-2 0-2, 3-5, None Seen /HPF 08/03/2023 2:33 PM CDT [facility] BACTERIA Rare None Seen, Rare, Few Bacteria/ HPF 08/03/2023 2:33 PM CDT [facility] EPITHELIAL CELLS Few None Seen, Few Epi/HPF 08/03/2023 2:33 PM CDT [facility] Urine URINE SPECIMEN / Unknown Non-Blood / Unknown 08/03/2023 2:23 PM CDT 08/03/2023 2:[address] BERUMEN URINE [facility] [address] [place] [address] * (ABNORMAL) URINALYSIS W REFLEX MICROSCOPIC IF POSITIVE (08/03/2023 2:23 PM CDT) Only the most recent of2 resultswithin the time period is included. COLOR Yellow Yellow Color 08/03/2023 2:30 PM [facility] CLARITY Clear Clear Clarity 08/03/2023 2:30 PM [facility] SPECIFIC GRAVITY,URINE <=1.005(A) 1.010, 1.015, 1.020, 1.025 08/03/2023 2:30 PM T [facility] PH,URINE 7.0 6.0, 7.0, 8.0, 5.5, 6.5, 7.5, 8.5 08/03/2023 2:30 PM [facility] UROBILINOGEN, QUALITATIVE Normal Normal EU/dl 08/03/2023 2:30 PM [facility] PROTEIN, URINE Negative Negative mg/dL 08/03/2023 2:30 PM T [facility] GLUCOSE, URINE Negative Negative mg/dL 08/03/2023 2:30 PM [facility] KETONES,URINE Negative Negative mg/dL 08/03/2023 2:30 PM [facility] BILIRUBIN,URI NE Negative Negative 08/03/2023 2:30 PM [facility] OCCULT BLOOD,URINE Moderate(A) Negative 08/03/2023 2:30 PM [facility] NITRITE Negative Negative 08/03/2023 2:30 PM T [facility] LEUKOCYTE ESTERASE Negative Negative 08/03/2023 2:30 PM [facility] Urine URINE SPECIMEN / Unknown Non-Blood / Unknown 08/03/2023 2:23 PM CDT 08/03/2023 2:[address] [facility]UM[facility] URINE [facility] [address] [place] [address] * BLOOD CULTURE X2 (08/03/2023 1:25 PM CDT) Only the most recent of6 resultswithin the time period is included. Pathologist [facility] CULTURE No Growth. 08/08/2023 6:59 PM [facility] Blood BLOOD SPECIMEN / Unknown Butterfly / Unknown 08/03/2023 1:25 PM CDT 08/03/2023 1:[address] [facility]ER[facility] MICROBIOLOG Y [facility] [address] [place] [address] * (ABNORMAL) CBC WITH AUTO DIFFERENTIAL (08/03/2023 1:17 PM CDT) Only the most recent of3 resultswithin the time period is included. [facility] WHITE BLOOD COUNT 4.5 4.5 - 11.0 thou/cu mm 08/03/2023 1:38 PM [facility] RED BLOOD COUNT 4.74 4.00 - 5.20 mil/cu mm 08/03/2023 1:38 PM [facility] HEMOGLOBIN 11.7(L) 12.0 - 16.0 g/dL 08/03/2023 1:38 PM [facility] HEMATOCRIT 37.2 33.0 - 51.0 % 08/03/2023 1:38 PM [facility] MCV 79(L) 80 - 100 fL 08/03/2023 1:38 PM [facility] MCH 24.7(L) 26.0 - 34.0 pg 08/03/2023 1:38 PM [facility] MCHC 31.5(L) 32.0 - 36.0 g/dL 08/03/2023 1:38 PM [facility] RDW 17.6(H) 11.5 - 15.5 % 08/03/2023 1:38 PM [facility] PLATELET COUNT 249 140 - 440 thou/cu mm 08/03/2023 1:38 PM [facility] MPV 10.8 6.5 - 11.0 fL 08/03/2023 1:38 PM [facility] % NEUT 70.7 % 08/03/2023 1:38 PM [facility] % LYMPH 12.2 % 08/03/2023 1:38 PM [facility] % MONO 9.5 % 08/03/2023 1:38 PM [facility] % EOS 6.9 % 08/03/2023 1:38 PM [facility] % BASO 0.7 % 08/03/2023 1:38 PM [facility] ABSOLUTE NEUTROPHILS 3.2 1.7 - 7.0 thou/cu mm 08/03/2023 1:38 PM [facility] ABSOLUTE LYMPHOCYTES 0.6(L) 0.9 - 2.9 thou/cu mm 08/03/2023 1:38 PM T [facility] ABSOLUTE MONOCYTES 0.4 <0.9 thou/cu mm 08/03/2023 1:38 PM [facility] ABSOLUTE EOSINOPHILS 0.3 <0.5 thou/cu mm 08/03/2023 1:38 PM [facility] ABSOLUTE BASOPHILS 0.0 <0.3 thou/cu mm 08/03/2023 1:38 PM [facility] Blood BLOOD SPECIMEN / Unknown Butterfly / Unknown 08/03/2023 1:17 PM CDT 08/03/2023 1:[address] [facility]ERUM[facility] HEMATOLOGY [facility] [address] [place] [address] * LACTATE VENOUS (08/03/2023 1:17 PM CDT) Only the most recent of5 resultswithin the time period is included. LACTATE,VENOUS 1.1 0.5 - 2.0 mmol/L 08/03/2023 1:53 PM T [facility] Blood BLOOD SPECIMEN / Unknown Butterfly / Unknown 08/03/2023 1:17 PM CDT 08/03/2023 1:[address] BERUM[facility] CHEMISTRY Performing Organization Address [facility] [place]/ZIP Co de Phone Number [facility] [address] [place] [address] * (ABNORMAL) PROTIME-INR (08/03/2023 1:17 PM CDT) Only the most recent of3 resultswithin the time period is included. INR 1.2 <1.3 08/03/2023 1:43 PM CDT [facility] PROTIME 12.9(H) 10.3 - 12.3 sec 08/03/2023 1:43 PM CDT [facility] Blood BLOOD SPECIMEN / Unknown Butterfly / Unknown 08/03/2023 1:17 PM CDT 08/03/2023 1:33 PM CDT Narrative [facility] - 08/03/2023 1:43 PM CDT ?Therapeutic [...] patient is on UFH. Lane BERUMEN HEMATOLOGY Performing Organization Address City/[facility] [place]/ZIP Co de Phone Number [facility] [address] [place] [address] * (ABNORMAL) COMP METABOLIC PANEL (08/03/2023 1:17 PM CDT) Only the most recent of3 resultswithin the time period is included. SODIUM 142 136 - 145 mmol/L 08/03/2023 2:09 PM [facility] POTASSIUM 3.4(L) 3.5 - 5.1 mmol/L 08/03/2023 2:09 PM [facility] CHLORIDE 102 98 - 107 mmol/L 08/03/2023 2:09 PM [facility] CO2,TOTAL 28 22 - 29 mmol/L 08/03/2023 2:09 PM [facility] ANION GAP 12 5 - 18 08/03/2023 2:09 PM [facility] GLUCOSE 106(H) 70 - 99 mg/dL 08/03/2023 2:09 PM [facility] CALCIUM 9.6 8.6 - 10.0 mg/dL 08/03/2023 2:09 PM [facility] BUN 4(L) 6 - 20 mg/dL 08/03/2023 2:09 PM [facility] CREATININE 0.44(L) 0.50 - 0.90 mg/dL 08/03/2023 2:09 PM [facility] BUN/CREAT RATIO 9(L) 10 - 20 2:09 PM [facility] eGFR >90 >90 mL/min/1.7 3m2 08/03/2023 2:09 PM [facility] Comment:As of 2021, eG FR is calculated by the CKD-EPI creatinine equation without race adjustment. ??eGFR can be influenced by muscle mass, exercise, and diet. ??The reported eGFR is an estimation only and is only applicable if the renal function is stable. ALBUMIN 4.2 4.0 - 4.9 g/dL 08/03/2023 2:09 PM [facility] PROTEIN,TOTAL 7.4 6.0 - 8.0 g/dL 08/03/2023 2:09 PM [facility] BILIRUBIN,TOTAL 0.5 0.0 - 1.2 mg/dL 08/03/2023 2:09 PM [facility] ALK PHOSPHATASE 104 35 - 104 IU/L 08/03/2023 2:09 PM [facility] ALT (SGPT) <5(L) 10 - 35 IU/L 08/03/2023 2:09 PM CDT [facility] AST (SGOT) 22 10 - 35 IU/L 08/03/2023 2:09 PM CDT [facility] Blood BLOOD SPECIMEN / Unknown Butterfly / Unknown 08/03/2023 1:17 PM CDT 08/03/2023 1:[address] BERUMEN CHEMISTRY [facility] [address] [place] [address] * XR CHEST 1 VIEW PORTABLE (08/03/2023 [...] 08/03/2023 1:08:07 PM (Electronically Signed) Lane BERUMEN [facility] DAVID GING * US BREAST UNILATERAL LEFT [...] 06/19/2023 12:45:40 PM (Electronically Signed) Alison Elmore [facility] COORDINATOR CT * PROCALCITONIN (06/19/2023 11:39 AM CDT) PROCALCITONIN 0.04 ng/ml 06/19/2023 12:21 PM CDT [facility] Blood BLOOD SPECIMEN / Unknown Butterfly / Unknown 06/19/2023 11:39 AM CDT 06/19/2023 11:47 AM CDT [facility] - 06/19/2023 12:21 PM CDT [...] are obtained. Alison Elmore NP SEND OUTS [facility] [address] [place] [id number] * (ABNORMAL) HEMOGLOBIN (06/05/2023 9:27 AM CDT) Only the most recent of4 resultswithin the time period is included. [facility] HEMOGLOBIN 9.3(L) 12.0 - 16.0 g/dL 06/05/2023 9:47 AM CDT [facility] MCV 82 80 - 100 fL 06/05/2023 9:47 AM CDT [facility] Blood BLOOD SPECIMEN / Unknown Butterfly / Unknown 06/05/2023 9:27 AM CDT 06/05/2023 9:36 AM CDT Kathy Rizzo NP HEMATOLOGY Performing Organization Address City/[facility] [place]/ZIP Co de Phone Number [facility] [address] [place] [address] * POTASSIUM (06/05/2023 9:27 AM CDT) Only the most recent of3 resultswithin the time period is included. [facility] POTASSIUM 4.0 3.5 - 5.1 mmol/L 06/05/2023 10:00 AM CDT [facility] Blood BLOOD SPECIMEN / Unknown Butterfly / Unknown 06/05/2023 9:27 AM CDT 06/05/2023 9:36 AM CDT Kathy Rizzo NP CHEMISTRY Performing Organization Address City/[facility] [place]/ZIP Co de Phone Number [facility] [address] [place] [address] * (ABNORMAL) CREATININE (06/05/2023 9:27 AM CDT) Only the most recent of3 resultswithin the time period is included. [facility] eGFR >90 >90 mL/min/1.7 3m2 06/05/2023 10:00 AM CDT [facility] Comment:As of 2021, eG FR is calculated by the CKD-EPI creatinine equation without race adjustment. ??eGFR can be influenced by muscle mass, exercise, and diet. ??The reported eGFR is an estimation only and is only applicable if the renal function is stable. CREATININE 0.48(L) 0.50 - 0.90 mg/dL 06/05/2023 10:00 AM CDT [facility] Blood BLOOD SPECIMEN / Unknown Butterfly / Unknown 06/05/2023 9:27 AM CDT 06/05/2023 9:36 AM CDT Kathy Rizzo NP CHEMISTRY Performing Organization Address [facility] [place]/[facility] de Phone Number [facility] [address] [place] [address] * MAGNESIUM (06/05/2023 9:27 AM CDT) Only the most recent of2 resultswithin the time period is included. MAGNESIUM 1.7 1.6 - 2.6 mg/dL 06/05/2023 10:00 AM CDT [facility] Blood BLOOD SPECIMEN / Unknown Butterfly / Unknown 06/05/2023 9:27 AM CDT 06/05/2023 9:36 AM CDT Kathy Rizzo NP CHEMISTRY Performing Organization Address [facility] Phone Number [facility] [address] [place] [address] * GLUCOSE METER (06/05/2023 9:13 AM CDT) Only the most recent of21 resultswithin the time period is included. GLUCOSE METER 99 65 - 100 mg/dL 06/05/2023 11:29 AM CDT [facility] Blood BLOOD SPECIMEN / Unknown 06/05/2023 9:13 AM CDT 06/05/2023 11:29 AM CDT Kathy Rizzo NP CHEMISTRY Performing Organization Address [facility] de Phone Number [facility] [address] [place] [address] * EKG 12 LEAD (06/04/2023 11:46 AM CDT) Pathologist [facility] Interpretation Normal sinus rhythm Low [...] NOW QTc 442 ms BEYOND NOW P Hayden 53 degrees BEYOND NOW R Hayden -6 degrees BEYOND NOW T Hayden 16 degrees BEYOND NOW 06/04/2023 11:4 6 AM CDT 06/04/2023 8:21 PM CDT Kathy Rizzo NP EKG ORD Performing Organization Address [facility] de Phone Number BEYOND NOW [place], [place] * WHITE BLOOD COUNT (06/04/2023 5:50 AM CDT) Only the most recent of2 resultswithin the time period is included. [facility] WHITE BLOOD COUNT 5.1 4.5 - 11.0 thou/cu mm 06/04/2023 6:32 AM CDT [facility] Blood BLOOD SPECIMEN / Unknown Butterfly / Unknown 06/04/2023 5:50 AM CDT 06/04/2023 6:25 AM CDT Kathy Rizzo NP HEMATOLOGY Performing Organization Address City/[facility] de Phone Number [facility] [address] [place] [address] * SODIUM (06/04/2023 5:50 AM CDT) Only the most recent of2 resultswithin the time period is included. [facility] SODIUM 138 136 - 145 mmol/L 06/04/2023 6:51 AM CDT [facility] Blood BLOOD SPECIMEN / Unknown Butterfly / Unknown 06/04/2023 5:50 AM CDT 06/04/2023 6:25 AM CDT Kathy Rizzo NP CHEMISTRY Performing Organization Address [facility] [place]/ZIP Co de Phone Number [facility] [address] [place] [address] * (ABNORMAL) C-REACTIVE PROTEIN (06/03/2023 6:49 AM CDT) [facility] C-REACTIVE PROTEIN 3.5(H) <0.5 mg/dL 06/03/2023 7:36 AM CDT [facility] Blood BLOOD SPECIMEN / Unknown Butterfly / Unknown 06/03/2023 6:49 AM CDT 06/03/2023 6:53 AM CDT Rory Boyer DO CHEMISTRY Performing Organization Address [facility] Co de Phone Number [facility] [address] [place] [address] * SCAN-CARDIAC STRIP (06/02/2023 10:13 AM CDT) Scanner OTHER * (ABNORMAL) CREATININE,ISTAT (06/02/2023 6:34 AM CDT) [facility] CREATININE, POCT 0.40(L) 0.57 - 1.11 mg/dL 06/02/2023 6:36 AM CDT [facility] Comment:Caution: Patients ta jaleel Hydroxyurea have falsely increased iStat Creatinine results. Verify creatinine results ordering a Creatinine (40475.2) eGFR >90 >90 mL/min/1.7 3m2 06/02/2023 6:36 AM CDT [facility] Comment:As of 2021, eG FR is calculated by the CKD-EPI creatinine equation without race adjustment. eGFR can be influenced by muscle mass, exercise, and diet. The reported eGFR is an estimation only and is only applicable if the renal function is stable. Blood BLOOD SPECIMEN / Unknown 06/02/2023 6:34 AM CDT 06/02/2023 6:36 AM CDT Roryedwin Gibbs Rosalind PINA CHEMISTRY [facility] [address] [place] [address] * SCAN-CARDIAC STRIP (06/02/2023 3:50 AM CDT) Scanner OTHER * (ABNORMAL) URINE CULTURE (06/01/2023 10:08 PM CDT) CULTURE RESULT(A) 06/05/2023 9:31 AM CDT [facility] CULTURE >100,000 CFU/mL Escherichia coli 06/05/2023 9:31 AM CDT [facility] CULTURE 10,000-50,000 CFU/mL Enterococcus faecalis 06/05/2023 9:31 AM CDT [facility] Urine URINE SPECIMEN / Unknown Non-Blood / Unknown 06/01/2023 10:08 PM CDT 06/01/2023 10:13 PM CDT Narrative Organism Antibiotic Method Susceptibility Escherichia coli TRIMETHOPRIM/SULF <=19: S Escherichia coli AMPICILLIN >=32: R Escherichia [...] NITROFURANTOIN <=16: S Lane BERUMEN MICROBIOLOG Y Performing Organization Address [facility] [place] Co de Phone Number [facility] [address] [place] [address], * (ABNORMAL) AEROBIC BACTERIAL CULTURE, STAIN (06/01/2023 8:47 PM CDT) CULTURE RESULT(A) 06/05/2023 8:50 AM CDT [facility] CULTURE 3+ Pseudomonas stutzeri 06/05/2023 8:50 AM CDT [facility] GRAM STAIN No Epithelial cells 06/05/2023 8:50 AM CDT [facility] GRAM STAIN 4+ RBCs 06/05/2023 8:50 AM CDT [facility] GRAM STAIN 2+ PMNs 06/05/2023 8:50 AM CDT [facility] GRAM STAIN 2+ Gram Negative Bacilli 06/05/2023 8:50 AM CDT [facility] Other (Other) Non-Blood / [...] [place]OPEN[place] <=0.25: S Lane BERUMEN MICROBIOLOG Y [facility] [address] [place] [address], [place] * (ABNORMAL) LIPID PANEL W REFLEX MEASURED LDL (11/30/2022 4:09 PM CDT) CHOLESTEROL,TOTAL 160 100 - 199 mg/dL 11/30/2022 11:51 PM CDT [facility] Comment: Cholesterol, Total Reference Ranges Desirable <200 mg/dL Borderline 200-239 mg/dL High >=240 mg/dL TRIGLYCERIDES 149 <150 mg/dL 11/30/2022 11:51 PM CDT [facility] HDL CHOLESTEROL 36(L) >40 mg/dL 11:51 PM CDT [facility] NON-HDL CHOLESTEROL 124 <145 mg/dl 11/30/2022 11:51 PM CDT [facility] CHOL/HDL RATIO 4.44 <4.50 11/30/2022 11:51 PM CDT [facility] LDL CHOLESTEROL 94 <=130 mg/dL 11/30/2022 11:51 PM CDT [facility] VLDL CHOLESTEROL 30 <=30 mg/dL 11/30/2022 11:51 PM CDT [facility] PROVIDER ORDERED STATUS RANDOM 11/30/2022 11:51 PM CDT [facility] Blood BLOOD SPECIMEN / Unknown Butterfly / Unknown 11/30/2022 4:09 PM CDT 11/30/2022 4:11 PM CDT Laurence BERUMEN CHEMISTRY [facility] [address] [place] [address], [place] * XR MAMMO KAYLEE BILAT SCREEN [...] care provider. XR MAMMO KAYLEE BILAT SCREEN [[id number]] CLINICAL HISTORY: ??This is an asymptomatic 47 [...] carly Non-React carly 09/23/2021 4:44 PM CDT [facility] Comment:Antibodies to HCV no t detected; does not exclude the possibility of exposure to HCV. Blood BLOOD SPECIMEN / Unknown Venipuncture / Unknown 09/20/2021 11:11 PM CDT 09/20/2021 11:15 PM CDT Bela Chávez MD [facility] [address] [place] [address], * ANTI HIV 1/2 (09/20/2021 11:11 PM CDT) HIV-1/HIV-2 ANTIBODY Non-Reacti ve Non-Reacti ve 09/23/2021 6:18 PM CDT [facility] Comment:HIV-1 p24 and HIV-1/ HIV-2 Ab not detected. Blood BLOOD SPECIMEN / Unknown Venipuncture / Unknown 09/20/2021 11:11 PM CDT 09/20/2021 11:15 PM CDT Bela Chávez MD SEND OUTS [facility] 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 Expl anation Healthcare Directive 12/15/2022 023 POLST [...] Intubation Drug Protocol: No Restrictions Care Teams Corn Crop Supervisor Relationship Specialty Start Date End Date Laurence Mujica PA [address] [place] [address] PCP - General Physician Dielectric Testing Machine Operator 07/16/14 Yumiko Garcia NP [address] [place] [address] Psychiatry Nurse Practitioner 04/07/16 Nga White MD [address] [facility] [place] [address] Surgery - Urology 06/15/22 [facility] [place] [address] [address] 04/30/23 [facility] [place] [address] [place] [id number] 04/30/23
== END 2023-08-29 10:36 | disposition home or self-care (01) ==
LOC: WOUND 10:35
PROVIDERS: PCP Physician Assistant; Visit Provider Surgery
DX: T81.31XA Disruption of external operation (surgical) wound, not elsewhere classified, initial encounter (principal); E11.628 Type 2 diabetes mellitus with other skin complications; L20.9 Atopic dermatitis, unspecified; G35 Multiple sclerosis; Z79.84 Long term (current) use of oral hypoglycemic drugs
CPT/HCPCS: 97597; G0463

== ENCOUNTER 2023-09-12 10:42 | Outpatient (CLI) | payer MEDICAID, SELFPAY ==
--- OUTSIDE RECORDS SUMMARY | 2023-09-12 10:44 | XMS_ITS ---
Author Organization [facility] Address [address] [place] [address] [address] [place] [address] Care Team Providers Care Garbage Stoker Name Role Phone Laurence Mujica Primary Care Provider UnavailDavid Tripathi Unavailable [phone] Raymond Jurado DO Unavailable Unavailable Anton Griffin Unavailable [phone] Allergies Allergen (clinical drug ingredient) Drug/Non Drug Allergy documented on EMR Reaction Allergy Type Onset Date Status fentanyl Fentanyl Hallucinations Drug Allergy Ac tive REASON FOR VISIT dispersed body pain Medications Medication SIG (Take, Route, Frequency, Duration) Notes [...] 40 MG Oral for 90 Days Active Social History Tobacco Use: Social History Observation Description Date Details (start date - stop date) Former Smoker NA - 09/05/2022 Tobacco Use/Smoking: Question Answer Notes Are you a former smoker when did you quit smoking 09/05/2022 Alcohol Screen Question Answer Notes Did you have a drink containing alcohol in the p ast year? No Points 0 Interpretation Negative Vital Signs Height 69 in 07/31/2023 Weight 187 lbs 07/31/2023 BMI 27.61 kg/m2 07/31/2023 Blood pressure systolic 120 mm Hg 07/31/19 24 Blood pressure diastolic 72 mm Hg 024 Encounters Encounter Location Date Provider Diagnosis [address] [facility] [address] [facility] [address] [place] [address] 07/31/2023 Anton Bolick Pain in leg, unspecified M79.606 ; Fibromyalgia M79.7 and Other chronic pain G89.29 Assessments Encounter Date Diagnosis (ICD Code) Assessment Notes Treatment Notes Treatment Clinical Notes 07/31/2023 Pain in leg, unspecified (ICD-10 - M79.606) 07/31/2023 Fibromyalgia (ICD-10 - M79.7) 07/31/2023 Other chronic pain (ICD-10 - G89.29) Mariana returns to clinic today for a follow up evaluation regarding her chronic dispersed body pain. I have reviewed the [place] [employer] database and did not find any [...] performed and the decisions made by her. Plan Of Treatment Medication Medication Name Sig Start Date Stop [...] dispersed body pain. I have reviewed the [place] [employer] database and did not find any [...] Up: 4 Weeks, Reason: Provider Name:Anton schmidt, 09/26/2023 01:45:00 PM, [address], [address], [place], [address], Progress Notes * JB Mariana RDOB:1975 (48 yo F)Acc No.[id number]:07/31/2023 Progress Notes Patient:?Jb Mariana R Provider:?Anton Griffin PA-C :1975???Age:48 Y???Sex:Female D ate:07/31/2023 Phone: Address:[address] [place] [address], [id number] Pcp:Laurence Mujica Subjective: * Chief Complaints: * ???Dispersed body pain * HPI: ???Clinic visit:? Mariana is a pleasant 48 year old female who returns to clinic for evaluation regarding chronic dispersed body pain including pain, numbness, and tingling from the knees to the feet. She was last seen in clinic on 06/06/2023; see clinic note for complete medical history. Her sister is present in the clinic with her today. Her chronic pain symptoms remain persistent during the interim. She reports increased acute pain after her breast reduction surgery. She admitted to overuse of her Oxycodone due to the pain. The pain affects her sleep and ability to complete ADLs. ?Of note, she will follow up with her wound clinic on 08/01/23 ?Procedure History : ?- Pelvic surgery at [facility] ?- Breast reduction surgery on 05/09/23. ?Current Medications: Oxycodone 10mg QID, medical cannabis, Cymbalta 60MG, Abilify 20MG ?Previous Medications: Percocet 10-325mg QID, Morphine (chest pain), Dilaudid (s/e chest pain), Lyrica ?Mental Health: She takes Cymbalta for depression, managed through her PCP. She follows with psychiatry and neurology as well. ???PQRS MEASURE:?154,155 Fall Risk?Have you had two or more falls in the past year??No,?Have you had any falls with injury in the past year??No,?Plan of Care:?Documented.?Depression Screening:?Screening not performed?Reason:?Patient Reason,?Type of Patient Reason:?Patient refused service.? * ROS:?General/Constitutional:?Chills/Fevers?No.?Fatigue?No.?Weight gain?No.?Weight loss?No.?Endocrine:?Dizziness?No.?Excessive sweating?No.?Weakness?No.?Respiratory:?Chest pain?No.?Cough?No.?Shortness of breath at rest?No.?Gastrointestinal:?Abdominal pain?No.?Blood in stool?No.?Constipation?No.?Diarrhea?No.?Hematology:?Easy bruising?No.?Prolonged bleeding?No.?Swollen glands?No.?Musculoskeletal:?Painful joints?No.?Swollen joints?No.?Skin:?Skin lesion(s)?No.?Neurologic:?Balance difficulty?No.?Headache?No.?Tingling/Numbness?No.?Psychiatric:?Alcoholism?No.?Anxiety?No.?Substance abuse?No.? * Medical History:? * Surgical History:?hysterecto my cholecystectomy tonsillectomy sinus surgery Eye surgery Breast reduction 05/2023 * Hospitalization/Major Diagno stic Procedure:?MS relapse 12/2020MS relapse 02/2021ER and TCU 02/2023 * Family History:?Father: carlene ceballos, diagnosed with Diabetes mellitus without mention of complication, type II or unspecified type, not stated as uncontrolled, Unspecified heart disease.?Mother: alive.? * Social History:?Tobacco Use:?Tobacco Use/Smoking?Are you a?former smoker,?when did you quit smoking?09/05/2022.?Drugs/Alcohol:?Alcohol Screen?Did you have a drink containing alcohol in the past year??No,?Points?0,?Interpretation?Negative.?Miscellaneous:?Marital status: . * Medications:?TakingoxyCODONE HCl 10 MG Tablet 1 tablet as needed Orally (ok to fill 07/07/2023) every 6 hrsAmphetamine-Dextroamphetamine 15 MG Tablet 1 tablet Orally once a dayAmantadine HCl 100 MG Capsule Oral ARIPiprazole 30 MG Tablet 1 tablet Oral Once a dayOmeprazole 40 MG Capsule Delayed Release Oral Eszopiclone 3 MG Tablet 1 tablet immediately before bedtime Oral Once a dayTrulicity 0.75 MG/0.5ML Solution Pen-injector Subcutaneous Atorvastatin Calcium 20 MG Tablet Oral Famotidine 40 MG Tablet Oral Dimethyl Fumarate 240 MG Capsule Delayed Release TAKE ONE CAPSULE BY MOUTH TWO TIMES A DAY Oral Fluticasone Propionate 50 MCG/ACT Suspension INHALE 1-2 SPRAYS TO BOTH NOSTRILS ONCE DAILY. Nasal Cetirizine HCl 10 MG Tablet Oral Ondansetron [address] 1 TABLET (4 MG) ON THE TONGUE EVERY 8 HOURS IF NEEDED FOR NAUSEA/VOMITING. Oral DULoxetine HCl 60 MG Capsule Delayed Release Particles Oral Medication List reviewed and reconciled with the patientTaking oxyCODONE HCl 10 MG Tablet 1 tablet as needed Orally (ok to fill 07/07/2023) every 6 hrsTaking Amphetamine-Dextroamphetamine 15 MG Tablet 1 tablet Orally once a dayTaking Amantadine HCl 100 MG Capsule Oral Taking ARIPiprazole 30 MG Tablet 1 tablet Oral Once a dayTaking Omeprazole 40 MG Capsule Delayed Release Oral Taking Eszopiclone 3 MG Tablet 1 tablet immediately before bedtime Oral Once a dayTaking Trulicity 0.75 MG/0.5ML Solution Pen-injector Subcutaneous Taking Atorvastatin Calcium 20 MG Tablet Oral Taking Famotidine 40 MG Tablet Oral Taking Dimethyl Fumarate 240 MG Capsule Delayed Release TAKE ONE CAPSULE BY MOUTH TWO TIMES A DAY Oral Taking Fluticasone Propionate 50 MCG/ACT Suspension INHALE 1-2 SPRAYS TO BOTH NOSTRILS ONCE DAILY. Nasal Taking Cetirizine HCl 10 MG Tablet Oral Taking Ondansetron 4 [address] Tablet [address] 1 TABLET (4 MG) ON THE TONGUE EVERY 8 HOURS IF NEEDED FOR NAUSEA/VOMITING. Oral Taking DULoxetine HCl 60 MG Capsule Delayed Release Particles Oral Medication List reviewed and reconciled with the patient * Allergies:?Fentanyl: Halluci nations - Side Effectsno[Allergies Verified] Objective: * Vitals:?Ht: 69 in, Wt:187 lb s, BMI:27.61, BP:120/72 mm Hg, VAS-Today:8 1-10, VAS-Av 1-10, VAS-High: 10 1-10. * Examination: ???Musculoskeletal: ?Constitutional:?obese body habitus, well groomed, in no acute distress.?Musculoskeletal:?requires assistive device for ambulation: walker, sits comfortably.?Skin:?No rashes, scars, or lesions on visible skin..?Neurological?normal coordination upper extremities, normal coordination lower extremities, alert and oriented x3, normal mood and affect.? Assessment: * Assessment: 1.?Pain in leg, unspecified - M79.606?2.?Fibromyalgia - M79.7 (Primary)?3.?Other chronic pain - G89.29? Plan: * Treatment: 2.?Others? Notes: Mechelle, Iain De Santiago, am serving as a [...] acting in scribe capacity, has observed Anton Elias's performance of the services and has documented them in accordance with her direction. The documentation recorded by the scribe accurately reflects the service Anton Griffin PA-C, personally performed and the decisions made by her.?? * Procedure Codes:? * Preventive Medicine:? ??iSpine Inventory Forms:?Low Back Oswestry?Oswestry Score (0-100)?82,?CONSUELO Interpretation?80-100 (Bedbound).? ??Counseling:?BMI Care goal follow-up plan:?Above Normal BMI Follow-up?Lifestyle education regarding diet Patient declined.? * Follow Up:?4 Weeks * Billing Information: * Visit Code:? 70938 Established Patient level 3. * Procedure Codes:? * Sign off status: Completed true * Provider:?Anton Griffin PA-C Date:?07/07 Generated for Ke manriquez/Jordyn/eTransmitting on:?09/12/2023 10:44 AM CDT History and Physical Notes * HPI (History [...] past year?: No Plan of Care:: Documented Examination Category Sub-Category Detail Notes Musculoskeletal Constitutional: obese body habit us, well groomed, in no acute distress Musculoskeletal: requires assistive d evice for ambulation: walker, sits comfortably Skin: No rashes, scars, or lesions on visible skin. Neurological normal coordination upper extremities, normal coordination lower extremities, alert and oriented x3, normal mood and affect
--- OUTSIDE RECORDS SUMMARY | 2023-09-12 10:44 | XMS_ITS ---
Author Organization [facility] Address [address] [place] [address] [address] [place] [address] Care Team Providers Care Theater Projectionist Name Role Phone Laurence Mujica Primary Care Provider David Brar Unavailable [phone] Raymond Jurado DO Unavailable Unavailable Anton Griffin Unavailable [phone] REASON FOR VISIT confirm JES orders Encounters Encounter Location Date Provider Diagnosis [facility] [address] [place] [address] [address] [place] [address] 08/30/2023 Anton Griffin Plan Of Treatment Next Appt Details Provider Name:Anton schmidt, 09/26/2023 01:45:00 PM, [address], [address], [place], [address], Progress Notes * Mariana MUHAMMAD RDOB:1975 (48 yo F)Acc No.[id number]:08/30/2023 Patient:?Mariana Muhammad :1975???Age:48 Y???Sex:Female Phone: Address:[address] [place] [address], [facility] [place] [address] * true * Date:? Generated for Printi mitra/Jordyn/eTransmitting on:?09/12/2023 10:44 AM CDT
--- OUTSIDE RECORDS SUMMARY | 2023-09-12 10:44 | XMS_ITS ---
Author Organization [facility] Address [address] [place] [address] [address] [place] [address] Care Team Providers Care Desk Maker Name Role Phone Laurence Mujica Primary Care Provider UnavailDavid Tripathi Unavailable [phone] Raymond Jurado DO Unavailable Unavailable Anton Griffin Unavailable [phone] Allergies Allergen (clinical drug ingredient) Drug/Non Drug Allergy documented on EMR Reaction Allergy Type Onset Date Status hydromorphone Dilaudid chest pain Drug Allergy Ac tive fentanyl Fentanyl Hallucinations Drug Allergy Ac tive morphine Morphine chest pain Drug Allergy Active Results Component Value Reference Range Notes Urine toxicology (Not yet re viewed by provider) Interpretation:ok to bill- see results Performing Lab: Notes/Report: ok to bill- see results OPI 300 1000 REASON FOR VISIT Dispersed Body Pain Medications Medication SIG (Take, Route, Frequency, Duration) [...] 60 MG Oral for 32 Days Active Famotidine 40 MG Oral for 90 Days Active Trulicity 0.75 MG/0.5ML Subcutaneous for 28 Days Active Atorvastatin Calcium 20 MG Oral for 90 Days Active Omeprazole 40 MG Oral for 90 Days Active Eszopiclone 3 MG 1 tablet immediately before bedtime Oral Once a day for 30 days Active Amphetamine-Dextroamphetam ine 15 MG 1 tablet Orally once a day A ctive oxyCODONE HCl 10 MG 1 tablet as needed O rally every 6 hrs for 30 days 08/29/2023 Active Amantadine HCl 100 MG Oral for 30 Days Active ARIPiprazole 30 MG 1 tablet Oral Once a day for 90 days Active Social History Tobacco Use: Social History [...] Interpretation Negative Vital Signs Height 69 in 08/29/2023 Blood pressure systolic 118 mm Hg 08/29/19 Blood pressure diastolic 76 mm Hg 024 Encounters Encounter Location Date Provider Diagnosis [facility] [address] 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 I have reviewed the [facility] database and did not find any inconsistencies. We discussed her current symptoms and medications. I will continue with a treatment plan consisting of conservative therapies at this time. Regarding medications, I will rotate her back to Oxycodone 10mg QID. She has consented to a UDS today for compliance risk monitoring. This treatment plan was reviewed with Mariana, and she was agreeable. I will continue to monitor her progress and she will follow up in one month or sooner if needed. Plan:1. UDS today2. Stop Dilaudid3. Start Oxycodone4. Follow-up in one month Discharge instructions reviewed [...] with any questions, problems or concerns. 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 Plan Of Treatment Medication Medication Name Sig Start Date Stop Date Notes oxyCODONE HCl 10 MG 1 tablet as needed O rally every 6 hrs for 30 days 08/29/2023 Dilaudid 2 MG 1 tablet as needed O rally every 4 hrs for 30 days Treatment Notes Assessment Notes Other chronic pain Mariana returns to clinic today for a follow-up evaluation regarding her chronic dispersed body pain. I have reviewed the [facility] database and did not find any inconsistencies. We discussed her current symptoms and medications. I will continue with a treatment plan consisting of conservative therapies at this time. Regarding medications, I will rotate her back to Oxycodone 10mg QID. She has consented to a UDS today for compliance risk monitoring. This treatment plan was reviewed with Mariana, and she was agreeable. I will continue to monitor her progress and she will follow up in one month or sooner if needed. Plan:1. UDS today2. Stop Dilaudid3. Start Oxycodone4. Follow-up in one month Discharge instructions reviewed [...] any questions, problems or concerns. Other I, Hernandez Chelsea, am serving as a scribe to document [...] the decisions made during the clinic visit. Pending Test Test Name Order Date Urine toxicology 08/29/2023 Next Appt Details Follow Up: 4 Weeks, Reason: Provider Name:Anton schmidt, 09/26/2023 01:45:00 PM, [address] [facility] [facility], [address], [place], [address], Progress Notes * Mariana MUHAMMAD RDOB:1975 (48 yo F)Acc No.[id number]:08/29/2023 Progress Notes Patient:?Mariana Muhammad R Provider:?Anton Griffin PA-C :1975???Age:48 Y???Sex:Female D ate:08/29/2023 Phone: Address:[address] [place], [place] [id number] Pcp:Laurence Mujica Subjective: * Chief Complaints: * ???Dispersed Body Pain * HPI: ???Clinic visit:? Mariana is a pleasant 48-year-old female who returns to clinic for evaluation regarding chronic dispersed body pain including pain, numbness, and tingling from the knees to the feet. She was last seen in clinic on 06/06/2023; see clinic note for complete medical history. ?Mariana was rotated to Dilaudid at her last visit. Today she reports that Dilaudid causes severe chest pain and would like to switch back to oxycodone. ?Procedure History : ?- Pelvic surgery at [facility] ?- Breast reduction surgery on 05/09/23. ?Current Medications: medical cannabis, Cymbalta 60MG, Abilify 20MG ?Previous Medications: Percocet 10-325mg QID, Morphine (chest pain), Dilaudid (s/e chest pain), Lyrica, Oxycodone 10mg QID, ?Mental Health: She takes Cymbalta for depression, managed through her PCP. She follows with psychiatry and neurology as well. ???Depression Screening:?PHQ-9?Little interest or pleasure in doing things?Nearly every day,?Feeling down, depressed, or hopeless?More than half the days,?Trouble falling or staying asleep, or sleeping too much?Nearly every day,?Feeling tired or having little energy?Nearly every day,?Poor appetite or overeating?Nearly every day,?Feeling bad about yourself or that you are a failure, or have let yourself or your family down?Nearly every day,?Trouble concentrating on things, such as reading the newspaper or watching television?Nearly every day,?Moving or speaking so slowly that other people could have noticed; or the opposite, being so fidgety or restless that you have been moving around a lot more than usual?Nearly every day,?Thoughts that you would be better off or of hurting yourself in some way?Not at all,?Total Score?23,?Interpretation?Severe Depression.?Intervention?Depression Screening Findings?Positve,?Name of the standardized tool used for adult depression screening:?Patient Health Questionnaire (PHQ-9),?Follow-Up for Depression?Mental health care education.?PQRS MEASURE:?154,155 Fall Risk?Have you had two or more falls in the past year??No,?Have you had any falls with injury in the past year??No,?Plan of Care:?Documented.? * ROS:?General/Constitutional:?Chills/Fevers?No.?Fatigue?No.?Weight gain?No.?Weight loss?No.?Endocrine:?Dizziness?No.?Excessive sweating?No.?Weakness?No.?Respiratory:?Chest pain?No.?Cough?No.?Shortness of breath at rest?No.?Gastrointestinal:?Abdominal pain?No.?Blood in stool?No.?Constipation?No.?Diarrhea?No.?Hematology:?Easy bruising?No.?Prolonged bleeding?No.?Swollen glands?No.?Musculoskeletal:?Painful joints?No.?Swollen joints?No.?Skin:?Skin lesion(s)?No.?Neurologic:?Balance difficulty?No.?Headache?No.?Tingling/Numbness?No.?Psychiatric:?Alcoholism?No.?Anxiety?No.?Substance abuse?No.? * Medical History:? * Surgical History:?hysterecto my cholecystectomy tonsillectomy sinus surgery Eye surgery Breast reduction 05/2023 * Hospitalization/Major Diagno stic Procedure:?MS relapse 12/2020MS relapse 02/2021ER and TCU 02/2023 * Family History:?Father: carlene ceballos, diagnosed with Unspecified heart disease, Diabetes mellitus without mention of complication, type II or unspecified type, not stated as uncontrolled.?Mother: alive.? * Social History:?Tobacco Use:?Tobacco Use/Smoking?Are you a?former smoker,?when did you quit smoking?09/05/2022.?Drugs/Alcohol:?Alcohol Screen?Did you have a drink containing alcohol in the past year??No,?Points?0,?Interpretation?Negative.?Miscellaneous:?Marital status: . * Medications:?TakingAmphetami ne-Dextroamphetamine 15 MG Tablet 1 tablet Orally once [...] 60 MG Capsule Delayed Release Particles Oral Dilaudid 2 MG Tablet 1 tablet as needed Orally every 4 hrsMedication List reviewed and reconciled with the patientTaking Amphetamine-Dextroamphetamine 15 MG Tablet 1 tablet Orally [...] 60 MG Capsule Delayed Release Particles Oral Taking Dilaudid 2 MG Tablet 1 tablet as needed Orally every 4 hrsMedication List reviewed and reconciled with the patient * Allergies:?Fentanyl: Halluci nations - Side EffectsMorphine: chest painDilaudid: chest pain Objective: * Vitals:?Ht: 69 in, Wt: Not T aken - Wheelchair bound, BMI: Not Taken - Wheelchair bound, BP:118/76 mm Hg, VAS-Today:3 1-10, VAS-Av 1-10, VAS-High: 10 1-10. * Examination: ???Musculoskeletal: ?Constitutional:?overweight body habitus , well groomed , in no acute distress.?Musculoskeletal:?in wheelchair, sits comfortably.?Skin:?No rashes, scars, or lesions on visible skin.?Neurological?normal coordination upper extremities , normal coordination lower extremities , alert and oriented x3 , normal mood and affect.? 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 Plan: * Treatment: 2.?nursing home (current) use o f opiate analgesic?LAB: Urine toxicology 3.?Opioid dependence, uncomplicated?LAB: Urine toxicology* Errol Stokes 08/29/2023 02:45:42 PM CDT > Urine sample will be sent to the [facility] to be analyzed. Expected positives include: Dilauded. Last dose taken per patient: TOday. They have consented to completing a UDS today for (random) High risk monitoring. Our chemistry analyzer ([employer] Pentra 400) will screen for the following substances: barbiturates, buprenorphine, cocaine, ethanol, MDMA, methadone, and oxycodone. Opioids, benzodiazepines and amphetamines are all medications either prescribed or have significant risk of drug-drug interaction and safety concerns with opioid pain medications. Because the presumptive immunoassay screen will not identify specific medication within a large class in order to determine whether these medications are prescribed or different medications in the class, we will order medications in these classes direct to definitive if appropriate. 4.?Others? Notes: IHernandez, am serving as a scribe to document services personally performed by Anton Griffin PA-C, based upon my observations and the provider's statements to me. All documentation has been reviewed by the aforementioned MIRELLA. I, Anton Griffin PA-C, attest that the above named odette tijerina is acting in scribe capacity, has observed my performance of the services and has documentedthem in accordance with my direction. The documentation recorded by the scribe accurately reflects the service I personally performed and the decisions made during the clinic visit.?? * Procedure Codes:? * Preventive Medicine:? ??iSpine Inventory Forms:?Low Back Oswestry?Oswestry Score (0-100)?80,?CONSUELO Interpretation?80-100 (Bedbound).? * Follow Up:?4 Weeks * Billing Information: * Visit Code:? 40038 Established Patient level 3. * Procedure Codes:? * Sign off status: Completed true * Provider:?Anton Griffin PA-C Date:?08/06 Generated for Ke manriquez/Jordyn/Usama on:?09/12/2023 10:44 AM CDT History and Physical Notes * HPI (History of Present Illness) Category Sub-Category Detail Notes Depression Screening PHQ-9 Little inte rest or pleasure in doing things: Nearly every day Feeling down, depressed, or hopeless: Mo re than half the days Trouble falling or staying asleep, or sl [...] some way: Not at all Total Score: 23 Interpretation: Severe Depression Intervention Depression Screening Findings: Love rodriguez Name of the standardized too l used for adult depression screening:: Patient Health Questionnaire (PHQ-9) Follow-Up for Depression: Mental health care education PQRS MEASURE 154,155 Fall Risk Have you had t wo or more falls in the past year?: No Have you had any falls with injury in th e past year?: No Plan of Care:: Documented Examination Category Sub-Category Detail Notes Musculoskeletal Constitutional: overweight body habitus , well groomed , in no acute distress Musculoskeletal: in wheelchair, sits comfortably Skin: No rashes, scars, or lesions on visible skin Neurological normal coordination upper extremities , normal coordination lower extremities , alert and oriented x3 , normal mood and affect
--- OUTSIDE RECORDS SUMMARY | 2023-09-12 10:45 | XMS_ITS | Referral Summary ---
Author Organization [facility] Address [address] [place] [address] Care Team Providers Care Box Hinge And Lock Attacher Name Role Phone Elsewhere, Pcp Primary Care Provider Unavailabl e Source Comments Patient records contain information from all sites at [facility]. For routine questions regarding patient records, call [phone] during business hours, M-F 8:00 AM - 5:00 PM Central Time. Record requests for emergency care only can be directed to [phone] at any time.[facility] Allergies Active Allergy Reactions Criticality Noted Date [...] Given: Not Answered Comments:Smokes more when stressed [facility] Utilities Answer Date Recorded In the past 12 months has e [employer], gas, oil, or water [employer] threatened to shut off services in your [...] How often do you attend buddhist or episcopalian serv ices? Never 01/25/2022 Do you belong [...] medical care, and heating? Very hard 01/25/2022 [facility] - Occupational [...] Sex Assigned at Female 01/25/2022 2:30 PM MOVING PICTURE PRODUCER Gender Identity Female 01/25/2022 2:30 PM MOVING PICTURE PRODUCER Sexual Orientation Straight 01/25/2022 2: 30 PM MOVING PICTURE PRODUCER Last Filed Vital Signs Vital Sign Reading Time Taken Comments Blood Pressure 96/66 04/24/2023 9:27 AM CDT Pulse 73 04/24/2023 9:27 AM CDT Temperature 36.6 ??C (97.9 ??F) 12/19/2020 6:19 AM CS T Respiratory Rate 16 12/19/2020 6:19 AM MOVING PICTURE PRODUCER Oxygen Saturation 94% 12/19/2020 6:19 AM MOVING PICTURE PRODUCER Inhaled Oxygen Concentration - - Weight 104 kg (228 lb 13.4 oz) 12/28/2020 8:51 A M MOVING PICTURE PRODUCER Height 175.3 cm (5' 9) 12/17/2020 10:53 PM MOVING PICTURE PRODUCER Body Mass Index 33.79 12/17/2020 10:53 PM MOVING PICTURE PRODUCER Plan of Treatment Not on file Medical Devices Implanted Type Area Milling Operator Device Identifier Shelf Expiration Date Model / [...] METABOLIC PANEL, S/P Routine 12/19/2020 7:20 AM MOVING PICTURE PRODUCER OPHTHALMOLOGY IMAGE EXAM Routine 03/26/2015 12:00 AM MOVING PICTURE PRODUCER CHRONIC VIRAL HEPATITIS PROFILE Routine 04/28/2014 6:41 PM CDT HIV-1/-2 AG AND AB SCREEN Routine 04/28/2014 6:41 PM CDT HEMOGLOBIN A1C, B Routine 04/27/2014 1:2 2 PM CDT from Last 3 Months or Most Recently Relevant to Health Maintenance Results * (ABNORMAL) Basic Metabolic Panel (12/19/2020 7:20 AM MOVING PICTURE PRODUCER) Potassium, P 4.5 3.6 - 5.2 mmol/L 12/19/2020 8:08 AM MOVING PICTURE PRODUCER MKTO Sodium, P 134(L) 135 - 145 mmol/L 12/19/2020 8:08 AM MOVING PICTURE PRODUCER MKTO Chloride, P 102 98 - 107 mmol/L 12/19/2020 8:08 AM MOVING PICTURE PRODUCER MKTO Bicarbonate, P 24 22 - 29 mmol/L 12/19/2020 8:08 AM MOVING PICTURE PRODUCER MKTO Anion Gap, P 8 7 - 15 12/19/2020 8:08 AM MOVING PICTURE PRODUCER MKTO BUN (Blood Urea Nitrogen), P 13 6 - 21 mg/dL 12/19/2020 8:08 AM MOVING PICTURE PRODUCER MKTO Creatinine 0.51(L) 0.59 - 1.04 mg/dL 12/19/2020 8:08 AM MOVING PICTURE PRODUCER MKTO eGFR-Black/Afri can Tristanian >90 >=60 mL/min/BSA 12/19/2020 8:08 AM MOVING PICTURE PRODUCER MKTO Comment: ----ADDITIONAL INFORMATION---- Estimated GFR calculated using the 2009 CKD_EPI creatinine equation. eGFR Non-Black/Afric an Tristanian >90 >=60 mL/min/BSA 12/19/2020 8:08 AM MOVING PICTURE PRODUCER MKTO Comment: ----ADDITIONAL INFORMATION---- Estimated GFR calculated using the 2009 CKD_EPI creatinine equation. Calcium, Total, P 9.4 8.6 - 10.0 mg/dL 12/19/2020 8:08 AM MOVING PICTURE PRODUCER MKTO Glucose, P 142(H) 70 - 140 mg/dL 12/19/2020 8:08 AM MOVING PICTURE PRODUCER MKTO Blood (Blood, Venous) 12/19/2020 7:20 AM MOVING PICTURE PRODUCER 12/19/2020 7:34 AM MOVING PICTURE PRODUCER Jerome Erickson LAB BLOOD ADD-ON Performing Organization Address City/State/[facility] Co de Phone Number [facility] [address] [place] [address], [facility] MKTO [facility] [place] [address] * OPHTHALMOLOGY IMAGE EXAM (03/26/2015 12:00 AM MOVING PICTURE PRODUCER) Anatomical Region Laterality Modality Other 03/26/2015 Addenda Addendum by ProviderJames M.D. on 03/26/2015 12:00 AM MOVING PICTURE PRODUCER OPH^^^MCR Eyes Visual [place] 03/26/2015 00:00:00 Historical Provider IMG NON RAD IMAGING PROCEDURES * HIV-1/-2 Ag and Ab Screen (04/28/2014 6:41 PM CDT) HIV-1/-2 Ag and Ab Screen, S Negative Negative [facility] Comment: Negative result does not rule out HIV infection. If ? acute HIV infection is suspected in a high-risk ? individual, submit plasma specimen for HIV-1 RNA ? quantification test (HIVQU) and/or HIV-2 DNA/RNA ? test (FHV2Q). ? 04/28/2014 6:41 PM CDT 04/28/2014 6:41 PM CDT Cirilo Mendez M.D. LAB MICROB IOLOGY - BLOOD ORDERABLES [facility] [address] [place] [address], [facility] * Chronic Hepatitis Profile (04/28/2014 6:41 PM CDT) HBs Antigen, S Negative Negative [facility] HBc Total Ab, S Negative Negative [facility] HBs Antibody,S Negative Unvaccinated : Negative; Vaccinated: Positive [facility] Comment:Patient is presumed to be not immune to infection with HBV. HBs Antibody, Quantitative, S <5.0 Unvaccinated : <5.0; Vaccinated: >=12.0 MIU/ML [facility] HCV Ab, S Negative Negative [facility] Comment:Jmuown-xk-cavxhp rat io is <1.00. 04/28/2014 6:41 PM CDT 04/28/2014 6:41 PM CDT Cirilo Mendez M.D. LAB MICROB IOLOGY - BLOOD ORDERABLES [facility] [address] * Hemoglobin A1c (04/27/2014 1:22 PM CDT) Hemoglobin A1c, B 5.1 4.0 - 6.0 % [facility] 04/27/2014 1:22 PM CDT 04/27/2014 1:22 PM CDT Db Sousa M.D., M.A. LAB BLOOD ADD -ON [facility] [address] from Last 3 Months or Most Recently Relevant to Health Maintenance Advance Directives For more information, please contact: [phone] * Full Code (Latest Code Status on File) Date Activated Date Inactivated Comments 12/18/2020 1:35 AM 12/19/2020 3:25 PM Question Answer Comments Full Code: Discussed Care Teams Box Hinge And Lock Attacher Relationship Specialty Start Date End Date Elsewhere, Pcp PCP - General Family Medicine 12/19/20
--- OUTSIDE RECORDS SUMMARY | 2023-09-12 10:45 | XMS_ITS | Encounter Summary ---
Author Organization [facility] Address [address] [place] [address] Care Team Providers Care Change Management Name Role Phone Elsewhere, Pcp Primary Care Provider Unavailabl e Encounter Details Date Type Department Care Team (Late st Contact Info) Description 09/18/2014 Historical Ophthalmology [facility] Kristen Westfall M.D. Social History Tobacco Use Types Packs/Day Years Used Date Smoking Tobacco: Never Assessed Sex and Gender Information Value Date Recorded Sex Assigned at Female 01/25/2022 2:30 PM MORTGAGE SPECIALIST Gender Identity Female 01/25/2022 2:30 PM MORTGAGE SPECIALIST Sexual Orientation Straight 01/25/2022 2: 30 PM MORTGAGE SPECIALIST documented as of this encounter Progress Notes [...] / PLAN Consult requested by: Josi Martinez [phone] #1 Blurred vision left eye. Today she [...] optic atrophy. CDM Reports - EYEGEN Id: [id number] Status: Fnl documented in this encounter Plan of Treatment Not on file documented as of this encounter Visit Diagnoses Not on filedocumented in this encounter Additional Health Concerns Infection Onset Date Last Indicated Resolved Time COVID19 Pending 12/17/2020 12/17/2020 01/06/2021 4 :54 AM MORTGAGE SPECIALIST documented as of this encounter Care Teams Change Management Relationship Specialty Start Date End Date Elsewhere, Pcp PCP - General Family Medicine 12/19/20 documented as of this encounter
--- OUTSIDE RECORDS SUMMARY | 2023-09-12 10:45 | XMS_ITS | Encounter Summary ---
Author Organization [facility] Address [address] [place] [address] Care Team Providers Care Tank Car Repairer Name Role Phone Elsewhere, Pcp Primary Care Provider Unavailabl e Encounter Details Date Type Department Care Team (Late st Contact Info) Description 12/15/2014 Historical Ophthalmology [facility] Adolph De Santiago M.D., Ph.D. [address] [place] [address] Social History Tobacco Use Types Packs/Day Years Used Date Smoking Tobacco: Never Assessed Sex and Gender Information Value Date Recorded Sex Assigned at Female 01/25/2022 2:30 PM DIGITAL ACCOUNT MANAGER Gender Identity Female 01/25/2022 2:30 PM DIGITAL ACCOUNT MANAGER Sexual Orientation Straight 01/25/2022 2: 30 PM DIGITAL ACCOUNT MANAGER documented as of this encounter Progress [...] light perception) CDM Reports - EYEGEN Id: [id number] Status: Fnl documented in this encounter Plan of Treatment Not on file documented as of this encounter Visit Diagnoses Not on filedocumented in this encounter Additional Health Concerns Infection Onset Date Last Indicated Resolved Time COVID19 Pending 12/17/2020 12/17/2020 01/06/2021 4 :54 AM DIGITAL ACCOUNT MANAGER documented as of this encounter Care Teams Tank Car Repairer Relationship Specialty Start Date End Date Elsewhere, Pcp PCP - General Family Medicine 12/19/20 documented as of this encounter
--- OUTSIDE RECORDS SUMMARY | 2023-09-12 10:45 | XMS_ITS | Encounter Summary ---
Author Organization [facility] Address [address] [place] [address] Care Team Providers Care Director Of Fundraising Name Role Phone Elsewhere, Pcp Primary Care Provider Unavailabl e Encounter Details Date Type Department Care Team (Late st Contact Info) Description 01/22/2004 Historical Ophthalmology [facility] Roddy Palmer M.D. [address] [place] [address] Social History Tobacco Use Types Packs/Day Years Used Date Smoking Tobacco: Never Assessed Sex and Gender Information Value Date Recorded Sex Assigned at Female 01/25/2022 2:30 PM CLEANING VALIDATION CONSULTANT Gender Identity Female 01/25/2022 2:30 PM CLEANING VALIDATION CONSULTANT Sexual Orientation Straight 01/25/2022 2: 30 PM CLEANING VALIDATION CONSULTANT documented as of this encounter Progress Notes [...] from a refration. Will continue prednisolone at [place], recheck 3 weeks with refraction. DIAGNOSIS #1 Episcleritis, scleritis #2 Optic atrophy R #3 Pars planitis L CDM Reports - EYEGEN Id: [id number] Status: Fnl documented in this encounter Plan of Treatment Not on file documented as of this encounter Visit Diagnoses Not on filedocumented in this encounter Additional Health Concerns Infection Onset Date Last Indicated Resolved Time COVID19 Pending 12/17/2020 12/17/2020 01/06/2021 4 :54 AM CLEANING VALIDATION CONSULTANT documented as of this encounter Care Teams Director Of Fundraising Relationship Specialty Start Date End Date Elsewhere, Pcp PCP - General Family Medicine 12/19/20 documented as of this encounter
--- OUTSIDE RECORDS SUMMARY | 2023-09-12 10:45 | XMS_ITS | Encounter Summary ---
Author Organization [facility] Address [address] [place] [address] Care Team Providers Care Rental Sales Representative Name Role Phone Elsewhere, Pcp Primary Care Provider Unavailabl e Encounter Details Date Type Department Care Team (Late st Contact Info) Description 01/11/2004 Historical Ophthalmology [facility] Esequiel Reyes M.D. Social History Tobacco Use Types Packs/Day Years Used Date Smoking Tobacco: Never Assessed Sex and Gender Information Value Date Recorded Sex Assigned at Female 01/25/2022 2:30 PM SCHOOL PHYSICAL THERAPIST Gender Identity Female 01/25/2022 2:30 PM SCHOOL PHYSICAL THERAPIST Sexual Orientation Straight 01/25/2022 2: 30 PM SCHOOL PHYSICAL THERAPIST documented as of this encounter Progress [...] planitis L CDM Reports - EYEGEN Id: [id number] Status: Fnl documented in this encounter Plan of Treatment Not on file documented as of this encounter Visit Diagnoses Not on filedocumented in this encounter Additional Health Concerns Infection Onset Date Last Indicated Resolved Time COVID19 Pending 12/17/2020 12/17/2020 01/06/2021 4 :54 AM SCHOOL PHYSICAL THERAPIST documented as of this encounter Care Teams Rental Sales Representative Relationship Specialty Start Date End Date Elsewhere, Pcp PCP - General Family Medicine 12/19/20 documented as of this encounter
--- OUTSIDE RECORDS SUMMARY | 2023-09-12 10:45 | XMS_ITS ---
Author Organization [facility] Address [address] [place] [address] Care Team Providers Care Chief Airline Radio Operator Name Role Phone Unavailable Unavailable Unavailable Surgery Details Not on file Complications Check Surgery Details section. Procedure Estimated Blood Loss Check Surgery Details section. Procedure Findings Check Surgery Details section. Procedure Specimens Taken Check Surgery Details section.
--- OUTSIDE RECORDS SUMMARY | 2023-09-12 10:45 | XMS_ITS | Encounter Summary ---
Author Organization [facility] Address [address] [place] [address] Care Team Providers Care Private Detective Name Role Phone Elsewhere, Pcp Primary Care Provider Unavailabl e Encounter Details Date Type Department Care Team (Late st Contact Info) Description 08/21/2014 Historical Ophthalmology [facility] Adolph De Santiago M.D., Ph.D. [address] [place] [phone] Social History Tobacco Use Types Packs/Day Years Used Date Smoking Tobacco: Never Assessed Sex and Gender Information Value Date Recorded Sex Assigned at Female 01/25/2022 2:30 PM AUDITOR/QUALITY Gender Identity Female 01/25/2022 2:30 PM AUDITOR/QUALITY Sexual Orientation Straight 01/25/2022 2: 30 PM AUDITOR/QUALITY documented as of this encounter Progress Notes [...] eye or something. She was inpatient at [facility] in April [address] Marroquin for a right periorbital lesion.On 04/29/14, ENT took the patient to the operating room and performed an aspiration and culture, orbital, periorbital, and paranasal sinus contents. Pathology showed chronic inflammation with no sign of infection. The patient was transferred to [facility] yesterday (08/20/14) from [facility] in [place] for right sided hemiplegia and hemisensory loss [...] has not followed-up in 3-5 years witha rn renal. She presented to the [place] ED with progressive right sided hemisensory loss, [...] at home she has been taking Lyrica, [place], and Vicodin; however she is unsure what [...] light perception) CDM Reports - EYEGEN Id: [id number] Status: Fnl documented in this encounter Plan of Treatment Not on file documented as of this encounter Visit Diagnoses Not on filedocumented in this encounter Additional Health Concerns Infection Onset Date Last Indicated Resolved Time COVID19 Pending 12/17/2020 12/17/2020 01/06/2021 4 :54 AM AUDITOR/QUALITY documented as of this encounter Care Teams Private Detective Relationship Specialty Start Date End Date Elsewhere, Pcp PCP - General Family Medicine 12/19/20 documented as of this encounter
--- OUTSIDE RECORDS SUMMARY | 2023-09-12 10:45 | XMS_ITS | Clinical Summary ---
Author Organization [facility] Address [address] [place] [address] Care Team Providers Care Poultry Hatchery Man Name Role Phone Roddy Trevino Primary Care Provider [phone] Allergies Active Allergy Reactions Criticality Noted Date [...] (198 lb 9.6 oz) 04/10/2012 9:25 AM PRACTICE ASSISTANT Height 171 cm (5' 7.32) 04/10/2012 9:2 5 AM PRACTICE ASSISTANT Body Mass Index 30.81 04/10/2012 9:25 AM PRACTICE ASSISTANT Plan of Treatment Not on file Care Teams Poultry Hatchery Man Relationship Specialty Start Date End Date Roddy Trevino PCP - General 12/14/10
--- OUTSIDE RECORDS SUMMARY | 2023-09-12 10:45 | XMS_ITS | Encounter Summary ---
Author Organization [facility] Address [address] [place] [address] Care Team Providers Care Financial Brokers Name Role Phone Elsewhere, Pcp Primary Care Provider Unavailabl e Encounter Details Date Type Department Care Team (Late st Contact Info) Description 03/11/2002 Historical Ophthalmology [facility] Carlos Zendejas M.D. [address] [facility] [place] [address] Social History Tobacco Use Types Packs/Day Years Used Date Smoking Tobacco: Never Assessed Sex and Gender Information Value Date Recorded Sex Assigned at Female 01/25/2022 2:30 PM OUTBOUND SALES SPECIALIST Gender Identity Female 01/25/2022 2:30 PM OUTBOUND SALES SPECIALIST Sexual Orientation Straight 01/25/2022 2: 30 PM OUTBOUND SALES SPECIALIST documented as of this encounter Progress [...] rechek prn CDM Reports - EYEGEN Id: [id number] Status: Fnl documented in this encounter Plan of Treatment Not on file documented as of this encounter Visit Diagnoses Not on filedocumented in this encounter Additional Health Concerns Infection Onset Date Last Indicated Resolved Time COVID19 Pending 12/17/2020 12/17/2020 01/06/2021 4 :54 AM OUTBOUND SALES SPECIALIST documented as of this encounter Care Teams Financial Brokers Relationship Specialty Start Date End Date Elsewhere, Pcp PCP - General Family Medicine 12/19/20 documented as of this encounter
--- OUTSIDE RECORDS SUMMARY | 2023-09-12 10:45 | XMS_ITS | Encounter Summary ---
Author Organization [facility] Address [address] [place] [address] Care Team Providers Care Webbing Seamer Pound Net Name Role Phone Elsewhere, Pcp Primary Care Provider Unavailabl e Encounter Details Date Type Department Care Team (Late st Contact Info) Description 07/20/2006 Historical Ophthalmology [facility] Roddy Palmer M.D. [address] [place] [address] Social History Tobacco Use Types Packs/Day Years Used Date Smoking Tobacco: Never Assessed Sex and Gender Information Value Date Recorded Sex Assigned at Female 01/25/2022 2:30 PM REGISTERED DENTAL ASSISTANT RDA Gender Identity Female 01/25/2022 2:30 PM REGISTERED DENTAL ASSISTANT RDA Sexual Orientation Straight 01/25/2022 2: 30 PM REGISTERED DENTAL ASSISTANT RDA documented as of this encounter Progress Notes [...] visual changes, left eye. CD [facility] Id: [id number] Status: Fnl documented in this encounter Plan of Treatment Not on file documented as of this encounter Visit Diagnoses Not on filedocumented in this encounter Additional Health Concerns Infection Onset Date Last Indicated Resolved Time COVID19 Pending 12/17/2020 12/17/2020 01/06/2021 4 :54 AM REGISTERED DENTAL ASSISTANT RDA documented as of this encounter Care Teams Webbing Seamer Pound Net Relationship Specialty Start Date End Date Elsewhere, Pcp PCP - General Family Medicine 12/19/20 documented as of this encounter
--- OUTSIDE RECORDS SUMMARY | 2023-09-12 10:45 | XMS_ITS | Encounter Summary ---
Author Organization [facility] Address [address] [place] [address] Care Team Providers Care Geotechnician Name Role Phone Elsewhere, Pcp Primary Care Provider Unavailabl e Encounter Details Date Type Department Care Team (Late st Contact Info) Description 03/26/2015 Historical Ophthalmology [facility] Adolph De Santiago M.D., Ph.D. [address] [place] [phone] Social History Tobacco Use Types Packs/Day Years Used Date Smoking Tobacco: Never Assessed Sex and Gender Information Value Date Recorded Sex Assigned at Female 01/25/2022 2:30 PM COMMERCIAL AIRLINE PILOT Gender Identity Female 01/25/2022 2:30 PM COMMERCIAL AIRLINE PILOT Sexual Orientation Straight 01/25/2022 2: 30 PM COMMERCIAL AIRLINE PILOT documented as of this encounter Progress Notes [...] light perception) #8 new optic perineuritis, right [facility] Reports - EYEGEN Id: [id number] Status: Fnl documented in this encounter Plan of Treatment Not on file documented as of this encounter Visit Diagnoses Not on filedocumented in this encounter Additional Health Concerns Infection Onset Date Last Indicated Resolved Time COVID19 Pending 12/17/2020 12/17/2020 01/06/2021 4 :54 AM COMMERCIAL AIRLINE PILOT documented as of this encounter Care Teams Geotechnician Relationship Specialty Start Date End Date Elsewhere, Pcp PCP - General Family Medicine 12/19/20 documented as of this encounter
--- OUTSIDE RECORDS SUMMARY | 2023-09-12 10:45 | XMS_ITS | Patient Health Record ---
Author Organization [facility] Address [address] [place] [address] [address] [place] [address] Care Team Providers Care Global Safety Officer Name Role Phone Laurence Mujica Primary Care Provider UnavailDavid Tripathi Unavailable [phone] Raymond Jurado DO Unavailable Unavailable Anton Griffin Unavailable [phone] Rod Golden Unavailable [phone] Fabian Walsh Unavailable [phone] Allergies Allergen (clinical drug ingredient) Drug/Non Drug [...] to bill- see results OPI 300 1000 Urine toxicology Reviewed date:11/14/2022 03:40:36 PM Interpretation:See Results Performing Lab: Notes/Report: See Results OPI 300 0 Urine toxicology Reviewed date:11/14/2022 03:40:36 PM Interpretation:See Results Performing Lab: Notes/Report: See Results OPI 300 0 Urine toxicology Reviewed date:03/07/2023 03:21:55 PM Interpretation:See Results Performing Lab: Notes/Report: See Results OPI 300 1000 Urine toxicology Reviewed date:05/21/2023 12:21:59 PM Interpretation:See Results Performing Lab: Notes/Report: See Results OPI 300 0 Urine toxicology Reviewed date:05/21/2023 12:21:59 PM Interpretation:See Results Performing Lab: Notes/Report: See Results OPI 300 0 Reason For Referral No Information Medications Medication SIG (Take, Route, Frequency, Duration) Notes Start Date End Date Status Famotidine 40 MG Oral for 90 Days Active Dimethyl Fumarate 240 MG TAKE ONE CAPSUL E BY MOUTH TWO TIMES A DAY Oral for 30 Days Active Trulicity 0.75 MG/0.5ML Subcutaneous for 28 Days Active Atorvastatin Calcium 20 MG Oral for 90 Days Active Amphetamine-Dextroamphetam ine 15 MG 1 tablet Orally once a day A ctive Fluticasone Propionate 50 MCG/ACT INHALE 1-2 SPRAYS TO BOTH NOSTRILS ONCE DAILY. Nasal for 24 Days Active Cetirizine HCl 10 MG Oral for 30 Days Active Ondansetron [address] 1 TABLET (4 MG ) ON THE TONGUE EVERY 8 HOURS IF NEEDED FOR NAUSEA/VOMITING. Oral for 10 Days Active oxyCODONE HCl 10 MG 1 tablet as needed O rally every 6 hrs for 30 days 08/29/2023 Active Omeprazole 40 MG Oral for 90 Days Active Eszopiclone 3 MG 1 tablet immediately before bedtime Oral Once a day for 30 days Active Amantadine HCl 100 MG Oral [...] ast year? No Points 0 Interpretation Negative Problems Problem Type SNOMED Code ICD Code Onset Dates Problem Status W/U Status Risk Notes Problem Opioid dependence (77898899) Opioid dependence, uncomplicated (F11.20) Active confirmed Problem Unspecified Personality Disorder; rule out mixed ( borderline, dependent, negativistic, explosive traits); rule out organic (32524636) Personality disorder, unspecified (F60.9) 08/25/19 09 Active confirmed Problem Chronic pain (93351730) Other chronic pain (G89.29) Active confirmed Problem Rheumatoid arthritis (77957545) Rheumatoid arthritis, unspecified (M06.9) Active confirmed Problem Systemic lupus erythematosus (00294788) Systemic lupus erythematosus, unspecified (M32.9) Active confirmed Problem Pain in limb (25645093) Pain in leg, unspecified (M79.606) Active confirmed Problem Fibromyalgia (753297971) Fibromyalgia (M79.7) Active confirmed Vital Signs Blood pressure diastolic 76 mm Hg 08/29/2023 Height 69 in 08/29/2023 Blood pressure systolic 118 mm Hg 08/29/2023 Weight 187 lbs 07/31/2023 BMI 27.61 kg/m2 07/31/2023 Encounters Encounter Location Date Provider Diagnosis [facility] [address] [address] 09/27/2022 Anton Bolick Pain in leg, unspecified M79.606 ; Fibromyalgia M79.7 and Other chronic pain G89.29 [facility] [address] [place] [address] 10/25/2022 Anton Bolick Pain in leg, unspecified M79.606 ; Fibromyalgia M79.7 ; Other chronic pain G89.29 ; assisted (current) use of opiate analgesic Z79.891 and Opioid dependence, uncomplicated F11.20 [facility] [address] [address] 11/21/2022 Anton Bolick Pain in leg, unspecified M79.606 ; Fibromyalgia M79.7 and Other chronic pain G89.29 [facility] [address] [facility] [address] [address] 12/20/2022 Anton Bolick Pain in leg, unspecified M79.606 ; Fibromyalgia M79.7 and Other chronic pain G89.29 [facility] [address] [address] 2023 Anton Bolick Pain in leg, unspecified M79.606 ; Fibromyalgia M79.7 ; Other chronic pain G89.29 ; continuous churn buttermaker (current) use of opiate analgesic Z79.891 ; Opioid dependence, uncomplicated F11.20 and Encounter for screening for other disorder Z13.89 [facility] [address] [address] 02/06/2023 Anton Bolick Pain in leg, unspecified M79.606 ; Fibromyalgia M79.7 ; Other chronic pain G89.29 ; continuous churn buttermaker (current) use of opiate analgesic Z79.891 ; Opioid dependence, uncomplicated F11.20 and Encounter for screening for other disorder Z13.89 [facility] [address] [address] 03/08/2023 Rod Golden Pain in leg, unspecified M79.606 ; Fibromyalgia M79.7 and Other chronic pain G89.29 [facility] [address] [facility] [address] [place] [address] 03/13/2023 Anton Bolick Pain in leg, unspecified M79.606 ; Fibromyalgia M79.7 and Other chronic pain G89.29 [facility] [address] [facility] [address] [address] 04/10/2023 Anton Bolick Fibromyalgia M79.7 ; Pain in leg, unspecified M79.606 and Other chronic pain G89.29 [facility] [address] [facility] [address] [address] 05/08/2023 Anton Bolick Fibromyalgia M79.7 ; Pain in leg, unspecified M79.606 ; Other chronic pain G89.29 ; assisted (current) use of opiate analgesic Z79.891 and Opioid dependence, uncomplicated F11.20 [facility] [address] [address] 06/06/2023 Anton Bolick Fibromyalgia M79.7 ; Pain in leg, unspecified M79.606 and Other chronic pain G89.29 [facility] [address] [facility] [address] [place] [address] 07/04/2023 Anton Bolick Other chronic pain G89.29 and Pain in leg, unspecified M79.606 [address] [facility] [address] [address] 07/31/2023 Anton Bolick Pain in leg, unspecified M79.606 ; Fibromyalgia M79.7 and Other chronic pain G89.29 [address] [facility] [address] [place] [address] 08/29/2023 Anton Bolick Pain in leg, unspecified M79.606 ; Fibromyalgia M79.7 ; Other chronic pain G89.29 ; continuous churn buttermaker (current) use of opiate analgesic Z79.891 and Opioid dependence, uncomplicated F11.20 [facility] [address] [place] [address] [address] [place] [address] 10/26/2022 Anton Bolick Other chronic pain G89.29 [facility] [address] [place] [address] [address] [place] [address] 12/25/2022 Anton Bolick Other chronic pain G89.29 [facility] [address] [place] [address] [address] [place] [address] 2023 Anton Bolick [facility] [address] [place] [address] [address] [place] [address] 02/06/2023 Anton Bolick [facility] [address] [place] [address] [address] [place] [address] 05/11/2023 Anton Bolick [facility] [address] [place] [address] [address] [place] [address] 08/30/2023 Anton Bolick Assessments Encounter Date Diagnosis (ICD Code) Assessment Notes Treatment Notes Treatment Clinical Notes 09/27/2022 Pain in leg, unspecified (ICD-10 - M79.606) 10/25/2022 Pain in leg, unspecified (ICD-10 - M79.606) 10/26/2022 Other chronic pain (ICD-10 - G89.29) 11/21/2022 Pain in leg, unspecified (ICD-10 - M79.606) 12/20/2022 Pain in leg, unspecified (ICD-10 - M79.606) 12/25/2022 Other chronic pain (ICD-10 - G89.29) 2023 Pain in leg, unspecified (ICD-10 - [...] body pain. I have reviewed the [facility] database and did not find [...] in leg, unspecified (ICD-10 - M79.606) 07/31/2023 Pain in leg, unspecified (ICD-10 - M79.606) 07/31/2023 Fibromyalgia (ICD-10 - M79.7) 08/29/2023 Pain in leg, unspecified (ICD-10 - M79.606) 08/29/2023 Fibromyalgia (ICD-10 - M79.7) 06/06/2023 Pain in leg, unspecified (ICD-10 - M79.606) 07/31/2023 Other chronic pain (ICD-10 - G89.29) Mariana returns to clinic today for a follow up evaluation regarding her chronic dispersed body pain. I have reviewed the [place] [employer] database and did not find any inconsistencies. [...] with any questions, problems or concerns. 05/08/2023 Other chronic pain (ICD-10 - G89.29) Mariana returns to clinic today for a follow up evaluation regarding her chronic pain. I have reviewed the [facility] database and did not find [...] or concerns. 03/13/2023 Fibromyalgia (ICD-10 - M79.7) 04/10/2023 Other chronic pain (ICD-10 - G89.29) Mariana returns to clinic today for a follow up evaluation regarding her chronic knees to feet pain. I have reviewed the [place] [employer] database and did not find any inconsistencies. [...] or concerns. 03/08/2023 Fibromyalgia (ICD-10 - M79.7) 02/06/2023 Fibromyalgia (ICD-10 - M79.7) 2023 Fibromyalgia (ICD-10 - M79.7) 12/20/2022 Fibromyalgia (ICD-10 - M79.7) 11/21/2022 Fibromyalgia (ICD-10 - M79.7) 10/25/2022 Fibromyalgia (ICD-10 - M79.7) 09/27/2022 Fibromyalgia (ICD-10 - M79.7) 09/27/2022 Other chronic pain (ICD-10 - G89.29) Mariana is a 47-year-old female who returns to clinic today for follow up of chronic dispersed body pain. I have reviewed the [place] [employer] database and did not find any inconsistencies. [...] body pain. I have reviewed the [place] [employer] database and did not find any inconsistencies. [...] body pain. I have reviewed the [facility] database and did not find [...] body pain. I have reviewed the [place] [employer] database and did not find any inconsistencies. [...] body pain. I have reviewed the [place] [employer] database and did not find any inconsistencies. [...] feet pain. I have reviewed the [place] [employer] database and did not find any inconsistencies. [...] chronic pain. I have reviewed the [place] [facility] [employer] database and we discussed her current symptoms and medications. Due to her recent procedure and [facility] treatment, Mariana has been prescribed sufficient pain medication for the time being. I have obtained ROIs to [facility] and the [facility] for further evaluation of her most recent treatment history. Otherwise she will follow up in a week to further discuss medication management. This treatment plan was reviewed with Mariana, and she was agreeable. Plan:1. BR[facility] to [facility]. Continue Oxycodone 20mg BID3. Follow up [...] with any questions, problems or concerns. 05/08/2023 assisted (current) use of opiate analgesic (ICD-10 - Z79.891) 06/06/2023 Other chronic pain (ICD-10 - G89.29) Mariana returns to clinic today for a follow up evaluation regarding her chronic pain. I have reviewed the [place] [employer] database and did not find any inconsistencies. [...] body pain. I have reviewed the [facility] database and did not find [...] with any questions, problems or concerns. 08/29/2023 continuous churn buttermaker (current) use of opiate analgesic (ICD-10 - Z79.891) 05/08/2023 Opioid dependence, uncomplicated (ICD-10 - F11.20) 02/06/2023 assisted (current) use of opiate analgesic (ICD-10 - Z79.891) 2023 assisted (current) use of opiate analgesic (ICD-10 - Z79.891) 10/25/2022 continuous churn buttermaker (current) use of opiate analgesic (ICD-10 - Z79.891) 10/25/2022 Opioid dependence, uncomplicated (ICD-10 - F11.20) 02/06/2023 Opioid dependence, uncomplicated (ICD-10 - F11.20) 2023 Opioid dependence, uncomplicated (ICD-10 - F11.20) 08/29/2023 Opioid dependence, uncomplicated (ICD-10 - F11.20) 02/06/2023 [...] benzodiazepines and other drugs (prescribed or not). 2023 Other Maribel Min, am serving as [...] decisions made by them. 04/10/2023 Other I, Nettesa Fordjerry bob, am serving as a scribe to [...] performed and the decisions made by her. 03/08/2023 Other I, Navneet Lopez , am [...] made by her. 03/07/2023 Other I, Vickey Say Tae, am serving as a scribe [...] performed and the decisions made by me. 11/21/2022 Other IMaribel, am serving as a scribe to document [...] acting in scribe capacity, has observed Anton Taniyacampbell's performance of the services and has documented them in accordance with her direction. The documentation recorded by the scribe accurately reflects the service Anton Griffin PA-C, personally performed and the decisions made by her. 03/13/2023 Other Vickey Min Say Tae, am serving as a scribe [...] the decisions made by her. 08/29/2023 Other I, Hernandez royal, am serving as a scribe [...] during the clinic visit. Plan Of Treatment Pending Test Test Name Order Date Urine toxicology 08/29/2023 Next Appt Details Provider Name:Anton schmidt, 09/26/2023 01:45:00 PM, [address], [address], [place], [address], Insurance Providers Payer Name Payer Address Payer Phone Subscriber Number Group Number Insured Name Patient Relationship to Insured Coverage Start Date Coverage End Date [facility] Complete/A LEYDA [address] [address] [place] [address] [id number] Mariana Muhammad Self - patient is the insured 4 [facility] [address] [place] [address] [id number] Mariana Muhammad Self - patient is the insured 4 Medicare Part B [employer] [address] [place] [address] [id number] Mariana Muhammad Self - patient is the insured 3 [facility] [address] [address] [place], [place] [id number] Mariana Muhammad Self - patient is the insured 3 Medical (General) History Medical History History ICD Code Acid reflux [...]
--- OUTSIDE RECORDS SUMMARY | 2023-09-12 10:45 | XMS_ITS | Encounter Summary ---
Author Organization [facility] Address [address] [place] [address] Care Team Providers Care Core Drill Operator Name Role Phone Elsewhere, Pcp Primary Care Provider Unavailabl e Encounter Details Date Type Department Care Team (Late st Contact Info) Description 04/29/2014 Historical Ophthalmology [facility] Gracie Marroquin M.D. [address] [place] [phone] Social History Tobacco Use Types Packs/Day Years Used Date Smoking Tobacco: Never Assessed Sex and Gender Information Value Date Recorded Sex Assigned at Female 01/25/2022 2:30 PM CORE DRILL OPERATOR Gender Identity Female 01/25/2022 2:30 PM CORE DRILL OPERATOR Sexual Orientation Straight 01/25/2022 2: 30 PM CORE DRILL OPERATOR documented as of this encounter Progress [...] Patient had a dilated eye exam at [facility] wit Dr. Price on 04/27/14 swelling and pain of the right eye. His exam indicated a third nerve palsy and the patient was referred to Neurology at that time. She presented to [facility] ED later that day and was admitted [...] orb; t ORIGINAL REPORT - 27-Apr-2014 19:39:00 [facility] EXAM: MRI Brain without and [...] surgery. Electronically signed by: Leatha Gunderson MD [id number] 27-Apr-2014 19:39 HR: confirmed above history. syptoms x last 1 week, pain around right eye, numbness and tingling inupper right face/forehead IMPRESSION / REPORT / PLAN Consult requested by: NEURO [phone] #1 Orbital inflammation, right #2 History of [...] Pseudophakia, left CDM Reports - [facility] Id: [id number] Status: Fnl documented in this encounter Plan of Treatment Not on file documented as of this encounter Visit Diagnoses Not on filedocumented in this encounter Additional Health Concerns Infection Onset Date Last Indicated Resolved Time COVID19 Pending 12/17/2020 12/17/2020 01/06/2021 4 :54 AM CORE DRILL OPERATOR documented as of this encounter Care Teams Core Drill Operator Relationship Specialty Start Date End Date Elsewhere, Pcp PCP - General Family Medicine 12/19/20 documented as of this encounter
--- OUTSIDE RECORDS SUMMARY | 2023-09-12 10:45 | XMS_ITS | Encounter Summary ---
Author Organization [facility] Address [address] [place] [address] Care Team Providers Care Zoology Technical Officer Name Role Phone Elsewhere, Pcp Primary Care Provider Unavailabl e Encounter Details Date Type Department Care Team (Late st Contact Info) Description 02/16/2004 Historical Ophthalmology [facility] Roddy Palmer M.D. [address] [place] [address] Social History Tobacco Use Types Packs/Day Years Used Date Smoking Tobacco: Never Assessed Sex and Gender Information Value Date Recorded Sex Assigned at Female 01/25/2022 2:30 PM REVENUE ENFORCEMENT COLLECTION AGENT Gender Identity Female 01/25/2022 2:30 PM REVENUE ENFORCEMENT COLLECTION AGENT Sexual Orientation Straight 01/25/2022 2: 30 PM REVENUE ENFORCEMENT COLLECTION AGENT documented as of this encounter Progress [...] #3 Pars planitis L [facility] Id: [id number] Status: Fnl documented in this encounter Plan of Treatment Not on file documented as of this encounter Visit Diagnoses Not on filedocumented in this encounter Additional Health Concerns Infection Onset Date Last Indicated Resolved Time COVID19 Pending 12/17/2020 12/17/2020 01/06/2021 4 :54 AM REVENUE ENFORCEMENT COLLECTION AGENT documented as of this encounter Care Teams Zoology Technical Officer Relationship Specialty Start Date End Date Elsewhere, Pcp PCP - General Family Medicine 12/19/20 documented as of this encounter
--- OUTSIDE RECORDS SUMMARY | 2023-09-12 10:45 | XMS_ITS | Clinical Summary ---
Author Organization [facility] Address [address] [place] [address] Care Team Providers Care Stroke Program Coordinator Name Role Phone Elsewhere, Pcp Primary Care Provider Unavailabl e Source Comments Patient records contain information from all sites at [facility]. For routine questions regarding patient records, call [phone] during business hours, M-F 8:00 AM - 5:00 PM Central Time. Record requests for emergency care only can be directed to [phone] at any time.[facility] Allergies Active Allergy Reactions Criticality Noted Date [...] Answered Comments:Smokes more when stressed [facility] Utilities Answer Date Recorded In the past 12 months has [facility] [employer], gas, oil, or water [employer] threatened to shut off services in your [...] declined 01/25/2022 How often do you attend caodaism or scientologist serv ices? Never 01/25/2022 Do you belong to any clubs o r organizations such as caodaism groups, unions, fraternal or athletic groups, or [...] medical care, and heating? Very hard 01/25/2022 [facility] - [...] place to sleep or slept in a fpc (including now)? No 01/25/2022 Nutrition Answer Date [...] Sex Assigned at Female 01/25/2022 2:30 PM AIR ANALYSIS ENGINEERING TECHNICIAN Gender Identity Female 01/25/2022 2:30 PM AIR ANALYSIS ENGINEERING TECHNICIAN Sexual Orientation Straight 01/25/2022 2: 30 PM AIR ANALYSIS ENGINEERING TECHNICIAN Last Filed Vital Signs Vital Sign Reading Time Taken Comments Blood Pressure 96/66 04/24/2023 9:27 AM CDT Pulse 73 04/24/2023 9:27 AM CDT Temperature 36.6 ??C (97.9 ??F) 12/19/2020 6:19 AM CS T Respiratory Rate 16 12/19/2020 6:19 AM AIR ANALYSIS ENGINEERING TECHNICIAN Oxygen Saturation 94% 12/19/2020 6:19 AM AIR ANALYSIS ENGINEERING TECHNICIAN Inhaled Oxygen Concentration - - Weight 104 kg (228 lb 13.4 oz) 12/28/2020 8:51 A M AIR ANALYSIS ENGINEERING TECHNICIAN Height 175.3 cm (5' 9) 12/17/2020 10:53 PM AIR ANALYSIS ENGINEERING TECHNICIAN Body Mass Index 33.79 12/17/2020 10:53 PM AIR ANALYSIS ENGINEERING TECHNICIAN Plan of Treatment Health Maintenance Due Date Last Done Comments CT Colonography 1975 Cologuard 1975 Colonoscopy 1975 Colorectal Cancer Screening 1975 Diabetic Office Visit with Foot Exam 1975 FIT 1975 Urine Albumin 1975 Pneumococcal vaccine (0-64 years) (1 of 2 - PCV) 1981 Hepatitis B Vaccines (1 of 3 - 19+ 3-dose series) 1994 Zoster Vaccines (1 of 2) 1994 Dilated Eye Exam 03/26/2016 03/26/2015, , 09/18/2014, Additional history exists DTaP,Tdap,and Td Vaccines (3 - Td or Tdap) 05/31/2021 06/01/2011, 06/11/1991 COVID-19 Vaccine ( - 2022- season) 2022 11/24/2021, 12/15/2020, 09/27/2020 Depression Screening (Annual PHQ-2) 02/05/2023 Mammogram 06/08/2023 06/07/2022, 06/07/2022 Hemoglobin A1C 08/17/2023 02/16/2023, 11/06, 06/05/2022, Additional history exists Influenza Vaccine (#1) 2023 , 12/18/2020, 02/10/2020, [...] this topic Medical Devices Implanted Type Area Tire Mechanic Device Identifier Shelf Expiration Date Model / [...] METABOLIC PANEL, S/P Routine 12/19/2020 7:20 AM AIR ANALYSIS ENGINEERING TECHNICIAN OPHTHALMOLOGY IMAGE EXAM Routine 03/26/2015 12:00 AM AIR ANALYSIS ENGINEERING TECHNICIAN CHRONIC VIRAL HEPATITIS PROFILE Routine 04/28/2014 6:41 PM CDT HIV-1/-2 AG AND AB SCREEN Routine 04/28/2014 6:41 PM CDT HEMOGLOBIN A1C, B Routine 04/27/2014 1:2 2 PM CDT from Last 3 Months or Most Recently Relevant to Health Maintenance Results * (ABNORMAL) Basic Metabolic Panel (12/19/2020 7:20 AM AIR ANALYSIS ENGINEERING TECHNICIAN) Potassium, P 4.5 3.6 - 5.2 mmol/L 12/19/2020 8:08 AM AIR ANALYSIS ENGINEERING TECHNICIAN MKTO Sodium, P 134(L) 135 - 145 mmol/L 12/19/2020 8:08 AM AIR ANALYSIS ENGINEERING TECHNICIAN MKTO Chloride, P 102 98 - 107 mmol/L 12/19/2020 8:08 AM AIR ANALYSIS ENGINEERING TECHNICIAN MKTO Bicarbonate, P 24 22 - 29 mmol/L 12/19/2020 8:08 AM AIR ANALYSIS ENGINEERING TECHNICIAN MKTO Anion Gap, P 8 7 - 15 12/19/2020 8:08 AM AIR ANALYSIS ENGINEERING TECHNICIAN MKTO BUN (Blood Urea Nitrogen), P 13 6 - 21 mg/dL 12/19/2020 8:08 AM AIR ANALYSIS ENGINEERING TECHNICIAN MKTO Creatinine 0.51(L) 0.59 - 1.04 mg/dL 12/19/2020 8:08 AM AIR ANALYSIS ENGINEERING TECHNICIAN MKTO eGFR-Black/Afri can South African >90 >=60 mL/min/BSA 12/19/2020 8:08 AM AIR ANALYSIS ENGINEERING TECHNICIAN MKTO Comment: ----ADDITIONAL INFORMATION---- Estimated GFR calculated using the 2009 CKD_EPI creatinine equation. eGFR Non-Black/Afric an South African >90 >=60 mL/min/BSA 12/19/2020 8:08 AM AIR ANALYSIS ENGINEERING TECHNICIAN MKTO Comment: ----ADDITIONAL INFORMATION---- Estimated GFR calculated using the 2009 CKD_EPI creatinine equation. Calcium, Total, P 9.4 8.6 - 10.0 mg/dL 12/19/2020 8:08 AM AIR ANALYSIS ENGINEERING TECHNICIAN MKTO Glucose, P 142(H) 70 - 140 mg/dL 12/19/2020 8:08 AM AIR ANALYSIS ENGINEERING TECHNICIAN MKTO Blood (Blood, Venous) 12/19/2020 7:20 AM AIR ANALYSIS ENGINEERING TECHNICIAN 12/19/2020 7:34 AM AIR ANALYSIS ENGINEERING TECHNICIAN Jerome Erickson LAB BLOOD ADD-ON Performing Organization Address [facility]/State/[facility] Co de Phone Number [facility] [address] [place] [address], [facility] [place] [address] * OPHTHALMOLOGY IMAGE EXAM (03/26/2015 12:00 AM AIR ANALYSIS ENGINEERING TECHNICIAN) Anatomical Region Laterality Modality Other 03/26/2015 Addenda Addendum by ProviderJames M.D. on 03/26/2015 12:00 AM AIR ANALYSIS ENGINEERING TECHNICIAN OPH^^^MCR Eyes Visual Landrum 03/26/2015 00:00:00 Historical Provider IMG NON RAD IMAGING PROCEDURES * HIV-1/-2 Ag and Ab Screen (04/28/2014 6:41 PM CDT) Pathologist [facility] HIV-1/-2 Ag and Ab Screen, S Negative Negative [facility] Comment: Negative result does not rule out HIV infection. If ? acute HIV infection is suspected in a high-risk ? individual, submit plasma specimen for HIV-1 RNA ? quantification test (HIVQU) and/or HIV-2 DNA/RNA ? test (FHV2Q). ? 04/28/2014 6:41 PM CDT 04/28/2014 6:41 PM CDT Cirilo Mendez M.D. LAB MICROB IOLOGY - BLOOD ORDERABLES [facility] [address] [place] [address], [facility] * Chronic Hepatitis Profile (04/28/2014 6:41 PM CDT) HBs Antigen, S Negative Negative [facility] HBc Total Ab, S Negative Negative [facility] HBs Antibody,S Negative Unvaccinated : Negative; Vaccinated: Positive [facility] Comment:Patient is presumed to be not immune to infection with HBV. HBs Antibody, Quantitative, S <5.0 Unvaccinated : <5.0; Vaccinated: >=12.0 MIU/ML [facility] HCV Ab, S Negative Negative [facility] Comment:Mvqrhv-gt-pyltto rat io is <1.00. 04/28/2014 6:41 PM CDT 04/28/2014 6:41 PM CDT Cirilo Mendez M.D. LAB MICROB IOLOGY - BLOOD ORDERABLES [facility] [address] * Hemoglobin A1c (04/27/2014 1:22 PM CDT) Hemoglobin A1c, B 5.1 4.0 - 6.0 % [facility] 04/27/2014 1:22 PM CDT 04/27/2014 1:22 PM CDT Db Sousa M.D., M.A. LAB BLOOD ADD -ON [facility] [address] from Last 3 Months or Most Recently Relevant to Health Maintenance Advance Directives For more information, please contact: [phone] * Full Code (Latest Code Status on File) Date Activated Date Inactivated Comments 12/18/2020 1:35 AM 12/19/2020 3:25 PM Question Answer Comments Full Code: Discussed Care Teams Stroke Program Coordinator Relationship Specialty Start Date End Date Elsewhere, Pcp PCP - General Family Medicine 12/19/20
--- OUTSIDE RECORDS SUMMARY | 2023-09-12 10:45 | XMS_ITS | Encounter Summary ---
Author Organization [facility] Address [address] [place] [address] Care Team Providers Care Radio Officer Name Role Phone Elsewhere, Pcp Primary Care Provider Unavailabl e Encounter Details Date Type Department Care Team (Late st Contact Info) Description 01/07/2004 Historical Ophthalmology [facility] Esequiel Ryees M.D. Social History Tobacco Use Types Packs/Day Years Used Date Smoking Tobacco: Never Assessed Sex and Gender Information Value Date Recorded Sex Assigned at Female 01/25/2022 2:30 PM RESTORER PAPER AND PRINTS Gender Identity Female 01/25/2022 2:30 PM RESTORER PAPER [employer]INTS Sexual Orientation Straight 01/25/2022 2: 30 PM RESTORER P[employer]ER [employer] PRINTS documented as of this encounter Progress Notes [...] #4 Photophobia CDM Reports - EYEGEN Id: [id number] Status: Fnl documented in this encounter Plan of Treatment Not on file documented as of this encounter Visit Diagnoses Not on filedocumented in this encounter Additional Health Concerns Infection Onset Date Last Indicated Resolved Time COVID19 Pending 12/17/2020 12/17/2020 01/06/2021 4 :54 AM RESTORER PAPER [employer] PRINTS documented as of this encounter Care Teams Radio Officer Relationship Specialty Start Date End Date Elsewhere, Pcp PCP - General Family Medicine 12/19/20 documented as of this encounter
--- OUTSIDE RECORDS SUMMARY | 2023-09-12 10:45 | XMS_ITS | Encounter Summary ---
Author Organization [facility] Address [address] [place] [address] Care Team Providers Care Director Of Consumer Affairs Name Role Phone Elsewhere, Pcp Primary Care Provider Unavailabl e Encounter Details Date Type Department Care Team (Late st Contact Info) Description 03/25/2015 Historical Ophthalmology [facility] Jocelin Scott M.D. Social History Tobacco Use Types Packs/Day Years Used Date Smoking Tobacco: Never Assessed Sex and Gender Information Value Date Recorded Sex Assigned at Female 01/25/2022 2:30 PM INTELLIGENCE INTERN Gender Identity Female 01/25/2022 2:30 PM INTELLIGENCE INTERN Sexual Orientation Straight 01/25/2022 2: 30 PM INTELLIGENCE INTERN documented as of this encounter Progress Notes [...] light perception) CDM Reports - EYEGEN Id: [id number] Status: Fnl documented in this encounter Plan of Treatment Not on file documented as of this encounter Visit Diagnoses Not on filedocumented in this encounter Additional Health Concerns Infection Onset Date Last Indicated Resolved Time COVID19 Pending 12/17/2020 12/17/2020 01/06/2021 4 :54 AM INTELLIGENCE INTERN documented as of this encounter Care Teams Director Of Consumer Affairs Relationship Specialty Start Date End Date Elsewhere, Pcp PCP - General Family Medicine 12/19/20 documented as of this encounter
--- OUTSIDE RECORDS SUMMARY | 2023-09-12 10:45 | XMS_ITS | Referral Summary ---
Author Organization [facility] Address [address] [place] [address] Care Team Providers Care Senior Pl Sql Developer Name Role Phone Roddy Trevino Primary Care Provider [phone] Allergies Active Allergy Reactions Criticality Noted Date [...] (198 lb 9.6 oz) 04/10/2012 9:25 AM MANPOWER DEVELOPMENT MANAGER Height 171 cm (5' 7.32) 04/10/2012 9:2 5 AM MANPOWER DEVELOPMENT MANAGER Body Mass Index 30.81 04/10/2012 9:25 AM MANPOWER DEVELOPMENT MANAGER Plan of Treatment Not on file Care Teams Senior Pl Sql Developer Relationship Specialty Start Date End Date Roddy Trevino PCP - General 12/14/10
--- OUTSIDE RECORDS SUMMARY | 2023-09-12 10:46 | XMS_ITS | Clinical Summary ---
Author Organization [facility] Address [place], [place] [address] Care Team Providers Care Acoustic Intelligence Specialist Name Role Phone Laurence Mujica Primary Care Provider [phone] Yumiko Garcia NP Unavailable Unavailable Nga White MD Unavailable [phone] [facility] [place] Unavailable [facility] [place] Unavailable [phone] Allergies Active Allergy Reactions Criticality Noted Date [...] Rash High 05/24/2007 Lidocaine Hcl Edema 12/17/2020 Morphine Chest Pain,Palpitations 11/20/2012 Tolerated [place] 04/21/2014 And chest pains Mushroom Anaphylaxis High [...] bladder disorder,Multiple sclerosis (HC) As directed. 14 Urdu straight cath for self cath up to [...] bed. Length of need 99 months. Bed cleat thrower:no 1 Each 10/04/19 22 Active Gauze Bandage [...] to affected area(s). 1 Each 06/16/19 Active EPINEPHrine (EpiPen) 0.3 mg/0.3 mL auto-injectorIndic ations:Allergy to bee sting,Food allergy Inject 0.3 mg intramuscular one time if needed for Allergic Reaction. 2 Each 08/29/19 Active omeprazole (PRILOSEC) 40 mg Delayed-Release capsuleIndications :Hot flashes due to menopause Take 1 Capsule (40 mg) by mouth once daily before a meal. 90 Capsule 3 08/29/19 Active Diaper,Brief, Adult,DisposableIn dications:Multiple sclerosis (HC),Neurogenic [...] mouth at bedtime. 90 Tablet 3 12/03/19 Active cetirizine (ZYRTEC) 10 mg tabletIndications: Seasonal [...] Of Breath or Wheezing. 02/23/19 24 Active valACYclovir (VALTREX) 500 mg tabletIndications: [...] daily. Indications: bipolar depression 08/02/19 24 Active oxyCODONE 10 mg tablet Take 10 mg by mouth every 6 hours if needed for Pain. [facility] and changed to Oxycodone Active oxybutynin XL (DITROPAN XL) 10 mg CR tabletIndications: Overactive bladder TAKE 1 TABLET BY MOUTH EVERY DAY 90 Tablet 09/04/19 24 Active dextroamphetamine- amphetamine (ADDERALL XR) 20 mg Extended-Release capsule Take 20 mg by mouth 2 times daily at 7 AM and Noon. 08/30/19 24 Active betamethasone dipropionate 0.05 % cream APPLY TOPICALLY THREE TIMES A WEEK NEEDED FOR SKIN IRRITATION; APPLY AROUND THE OUTSIDE OF THE WOUND WITH DRESSING CHANGES ON MON,WED,FRI 08/29/19 24 Active prednisoLONE acetate 1% ophthalmic (ECONOPRED PLUS, PRED FORTE, OMNIPRED) suspension INSTILL ONE DROP THREE TIMES A DAY IN THE RIGHT EYE ONLY X 1 WEEK 09/06/19 24 Active semaglutide (Ozempic) 2 mg/3 mL subcutaneous penIndications:Typ e 2 diabetes mellitus without complication, without long-term current use of insulin (HC) Inject 0.5 mg subcutaneous once weekly. 9 mL 1 09/11/19 24 Active linaCLOtide (Linzess) 145 mcg cap capsuleIndications :Chronic constipation,Multi ple sclerosis (HC) Take 1 Capsule (145 mcg) by mouth once daily. 90 Capsule 3 09/11/19 24 Active triamcinolone (ARISTOCORT; KENALOG) 0.1 % creamIndications:I rritant contact dermatitis due to other agents Apply topically to affected area(s) three times daily. 80 g 09/11/19 24 Active oxybutynin XL (Ditropan XL) 10 mg CR tabletIndications: Overactive bladder Take 1 Tablet (10 mg) by mouth once daily. 90 Tablet 3 08/29/19 23 024 Discontinued dulaglutide (TRULICITY) 0.75 mg/0.5 mL subcutaneous penIndications:Typ e 2 diabetes mellitus without complication, without long-term current use of insulin (HC) Inject 0.75 mg subcutaneous once weekly. 6 mL 1 03/27/19 24 024 Discontinued linaCLOtide (Linzess) 72 mcg cap capsuleIndications :Slow transit constipation TAKE 1 CAPSULE (72 MCG) BY MOUTH BEFORE BREAKFAST. 90 Capsule 3 07/31/19 24 024 Discontinued(*M edication adjustment) HYDROmorphone (DILAUDID) 2 mg tablet Take 2 mg by mouth every 4 hours. Take 1 tablet (2 mg) by mouth every 4 hours for pain. 07/31/19 24 024 Discontinued(*D iscontinued by another clinician) HYDROmorphone (DILAUDID) 2 mg tablet Take 2 mg by mouth 2 times daily if needed. Take 1 tablet (2 mg) by mouth two times a day as needed for breakthrough pain. 07/31/19 24 024 Discontinued(*D iscontinued by another clinician) dulaglutide (Trulicity) 0.75 mg/0.5 mL subcutaneous penIndications:Typ e 2 diabetes mellitus without complication, without long-term current use of insulin (HC) Inject 0.75 mg subcutaneous once weekly. 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 Was seen at [place] by neurology and rheumatology, apparently had characteristic MRI with demyelinating lesions but numerous lumbar punctures have not demonstrated CSF protein abnormalities. Has been seen at [facility] neurology clinic. Currently following with Dr. Shepherd at [facility]. Started on Tysabri (monoclonal baldo) infusions in 2007. Continues to have progressive symptoms. 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 12/06/15--Neurologist is Dr. Ab Whittington- location [facility] ext [phone]. Currently [...] injury 02/25/2021 02/25/2021 Overview: Overview: Created by [facility] Annotation: May 09 2011 2:19PM - [...] Encounters Date Type Department Care Team Description 09/12/2023 Telephone [facility] [address] [place] [address] Nga White MD Appointment Request (NEEDS CATHETER REPLACED) 09/11/2023 1:10 PM CDT Office Visit [facility] [address] [place] [address] Laurence Mujica PA Derm Problem (Mole in groin area she wants removed-also told she has a hematoma growing in her left eye) 09/11/2023 10:27 AM CDT - 09/11/2023 11:59 PM CDT Hospital Encounter [facility] [address] [place] [address] Nga White MD Neurogenic bladder 09/11/2023 Travel 09/10/2023 8:30 AM CDT Home Care Visit [facility] [address] [place] [address] Poornima Billingsley RN SN - HOME VISIT 09/07/2023 10:00 AM CDT Home Care Visit [facility] [address] [place] [address] Josi Sosa, CALLUM SN - HOME VISIT 09/05/2023 Patient Outreach [facility] [address] [facility] [place] [address] Laurence Mujica PA Appointment (Cath Change today ) 09/03/2023 4:30 AM CDT Home Care Visit [facility] [address] [place] [phone] Torie Shea RN SN - OASIS RECERTIFICATION 09/03/2023 Plan of Care Documentation [place] [id number] [place] [phone] 09/03/2023 Refill [facility] [address] [place] [address] Laurence Mujica PA Refill Request (Oxybutynin Xl) 08/31/2023 9:30 AM CDT Home Care Visit [facility] [address] [place] [phone] Poornima Billingsley RN SN - HOME VISIT 08/30/2023 Home Care Visit [facility] [address] [place] [phone] Luisa Velasquez RN CARE COORDINATION 08/30/2023 Refill [facility] [address] [place] [address] Laurence Mujica PA Refill Request (Trulicity) 08/30/2023 Home Care Visit [facility] [address] [place] [phone] Luisa Velasquez, CALLUM SN - TELEHEALTH VISIT 08/27/2023 2:15 PM CDT Home Care Visit [facility] [address] [place] [phone] Ivette Martinez RN SN - HOME VISIT 08/24/2023 11:30 AM CDT Home Care Visit [facility] [address] [place] [address] Socorro Barajas LPN REINFORCING STEEL [employer]OR - HOME VISIT 08/20/2023 12:30 PM CDT Home Care Visit [facility] [address] [place] [address] Torie Shea RN SN - HOME VISIT 08/17/2023 1:30 PM CDT Home Care Visit [facility] [address] [place] [address] Socorro Barajas LPN [employer]IN[employer]ING STEEL [employer] - MISSED VISIT 08/17/2023 Home Care Visit [facility] [address] [place] [address] Luisa Velasquez RN CARE COORDINATION 08/16/2023 11:00 AM CDT Office Visit [address] [address] Nga White MD Non-billable 08/16/2023 10:30 AM CDT Nurse/Clinic Staff Only [address] [address] Nurse/Clinic Staff Only (Suprapubic catheter exchange) 08/16/2023 Travel 08/16/2023 Home Care Visit [facility] [address] [place] [address] Luisa Velasquez RN SN - TELEHEALTH VISIT 08/13/2023 12:00 PM CDT Home Care Visit [facility] [address] [place] [address] Socorro Barajas LPN LPN - HOME VISIT 08/10/2023 12:00 PM CDT Home Care Visit [facility] [address] [place] [address] Ivette Martinez RN SN - HOME VISIT 08/10/[address] [place] [address] Laurence Mujica PA Questions 08/10/2023 Home Care Visit [facility] [address] [place] [address] Luisa Velasquez, RN CARE COORDINATION 08/07/2023 10:00 AM CDT Home Care Visit [facility] [address] [place] [address] Denisse Cueto LISW CRAYON SAWYER - INITIAL ASSESSMENT 08/07/2023 Home Care Visit [facility] [address] [place] [address] Luisa Velasquez, CALLUM SN - TELEHEALTH VISIT 08/06/2023 1:30 PM CDT Home Care Visit [facility] [address] [place] [address] Socorro Barajas LPN [employer]IN[employer]ING STE[employer] - HOME VISIT 08/04/2023 Home Care Visit [facility] [address] [place] [address] Luisa Velasquez, CALLUM SN - MISSED VISIT 08/03/2023 12:40 PM CDT - 08/03/2023 3:23 PM CDT Emergency [facility] [address] [facility] [place] [address] Lane Barahona PA Open wound of left chest wall, subsequent encounter (Primary Dx); Chronic suprapubic catheter (HC) Discharge Disposition: Home Self Care 08/03/2023 Home Care Visit [facility] [address] [place] [address] Denisse Cueto LISW CRAYON SAWYER - CASE COMMUNICATION 08/03/2023 Orders Only [facility] [address] [facility] [address] Laurence Mujica PA <No scans attached> 08/03/2023 Travel 08/03/2023 Home Care Visit [facility] [address] [place] [address] Luisa Velasquez, CALLUM CARE COORDINATION 08/02/2023 4:30 PM CDT Home Care Visit [facility] [address] [place] [address] Josi Sosa, CALLUM SN - PRN HOME VISIT 08/02/2023 10:30 AM CDT - 08/02/2023 11:59 PM CDT Hospital Encounter [facility] [address] [place] [address] Left breast abscess 08/02/2023 Telephone [facility] [address], [place] [address] Josi Sosa, agile coach (Patient sent to ED.) 08/02/2023 Home Care Visit [facility] [address] [place] [address] Luisa Velasquez, CALLUM CARE COORDINATION 08/02/2023 Travel 08/01/2023 Home Care Visit [facility] [address] [place] [address] Luisa Velasquez, CALLUM SN - TELEHEALTH VISIT 07/30/2023 3:30 PM CDT Home Care Visit [facility] [address] [place] [address] Josi Sosa, RN SN - HOME VISIT 07/30/2023 Home Care Visit [facility] [address] [place] [phone] Luisa Velasquez RN CARE COORDINATION 07/28/2023 Refill [facility] [address] [place] [address] Laurence Mujica PA Refill Request (Linzescelso) 07/27/2023 1:00 PM CDT Home Care Visit [facility] [address] [place] [phone] Ivette Martinez, CALLUM SN - HOME VISIT 07/27/2023 Home Care Visit [facility] [address] [place] [address] Luisa Velasquez RN CARE COORDINATION 07/27/2023 Telephone [facility] [address] [place] [address] Luisa Velasquez, agile coach 07/26/[address] [address] Laurence Mujica PA Questions (Catheter ) 07/26/2023 Home Care Visit [facility] [address] [place] [phone] Luisa Velasquez RN CARE COORDINATION 07/23/2023 12:00 PM CDT Home Care Visit [facility] [address] [place] [phone] Radha Bob RN SN - LONG VISIT (>90 MINUTES) 07/23/2023 Home Care Visit [facility] [address] [place] [phone] Luisa Velasquez RN CARE COORDINATION 07/20/2023 12:00 PM CDT Home Care Visit [facility] [address] [place] [phone] Socorro Barajas LPN LPN - HOME VISIT 07/19/2023 Telephone [facility] [address], [place] [address] Socorro Barajas LPN Breast Problem (Wound on (L) breast) 07/16/2023 12:00 PM CDT Home Care Visit [facility] [address] [place] [phone] Socorro Barajas LPN LPN - HOME VISIT 07/13/2023 1:00 PM CDT Home Care Visit [facility] [address] [place] [phone] Orlando Escobar, RN SN - WOUND HOME VISIT 07/12/2023 Transcribe Orders [facility] [address] [place] [address] Sole Noel MD 07/09/2023 12:50 PM CDT Office Visit [facility] [address] [place] [address] Laurence Mujica PA Derm Problem (Check breast-has a 'hole with yellow drainage'-also needs cream for stomach) 07/09/2023 9:00 AM CDT Home Care Visit [place] [address] [place] [phone] Radha Bob RN SN - HOME VISIT 07/09/2023 Orders Only [facility] [address] [place] [address] Laurence Mujica PA <No scans attached> 07/08/2023 Travel 07/07/2023 10:30 AM CDT Home Care Visit [place] [address] [place] [phone] Radha Bob RN SN - LONG VISIT (>90 MINUTES) 07/06/2023 1:00 PM CDT Home Care Visit [address] [address] Ivette Martinez RN SN - WOUND HOME VISIT 07/06/2023 Home Care Visit [place] [address] [place] [phone] Maria Victoria [place], PT PT - DISCIPLINE DISCHARGE 07/06/2023 Orders Only [facility] [address] [place] [address] Laurence Mujica PA <No scans attached> 07/06/2023 Home Care Visit [place] [address] [place] [phone] Maria Victoria [place], PT CARE COORDINATION 07/05/2023 Home Care Visit [address] [place] [address] Maria Victoria [place], PT PT - MISSED VISIT 07/04/2023 8:00 AM CDT Home Care Visit [facility] [address] [place] [address], [place] [address] Orlando Escobar, RN SN - OASIS RECERTIFICATION 07/04/2023 Plan of Care Documentation [facility] [address] [place] [phone] 07/03/2023 12:00 PM CDT Home Care Visit [facility] [address] [place] [phone] Luisa Burnett, PT PT - HOME VISIT 07/02/2023 8:30 AM CDT Home Care Visit [facility] [address] [place] [phone] Radha Bob, RN SN - WOUND HOME VISIT 07/01/2023 8:30 AM CDT Home Care Visit [facility] [address] [place] [phone] Radha Bob, RN SN - WOUND HOME VISIT 06/30/2023 12:00 PM CDT Home Care Visit [facility] [address] [place] [phone] Radha Bob, RN SN - WOUND HOME VISIT 06/29/2023 9:00 AM CDT Home Care Visit [facility] [address] [place] [phone] Orlando Escobar, RN SN - WOUND HOME VISIT 06/28/2023 10:15 AM CDT Home Care Visit [facility] [address] [place] [phone] Luisa Burnett, PT PT - WOUND HOME VISIT 06/28/[address] [address] Luisa Burnett, PT Home Care 06/27/2023 12:30 PM CDT Home Care Visit [facility] [address] [place] [address] Orlando Escobar, RN SN - WOUND HOME VISIT 06/26/2023 10:15 AM CDT Home Care Visit [facility] [address] [place] [address] Luisa Burnett, PT PT - WOUND HOME VISIT 06/25/2023 10:30 AM CDT Home Care Visit [facility] [address] [place] [phone] Orlando Escobar, RN SN - WOUND HOME VISIT 06/24/2023 11:00 AM CDT Home Care Visit [facility] [address] [place] [phone] Radha Bob RN SN - HOME VISIT 06/23/2023 10:30 AM CDT Home Care Visit [facility] [address] [place] [phone] Radha Bob RN SN - HOME VISIT 06/22/2023 10:30 AM CDT Home Care Visit [facility] [address] [place] [phone] Orlando Escobar RN SN - WOUND HOME VISIT 06/21/2023 11:30 AM CDT Office Visit [facility] [address] [address] Tata Cruz PA Surgical Followup (Check open wound on her left breast S/P Bilateral Breast Reduction with free nipple graft on 05/09/23 with [facility]) 06/21/2023 10:30 AM CDT Home Care Visit [facility] [address] [place] [phone] Luisa Burnett, PT PT - MISSED VISIT 06/21/2023 Travel 06/21/2023 Telephone [facility] [address] [address] Alfredo Arce MD Post-op Pain/problem (Wound on left breast) 06/20/2023 12:00 PM CDT Home Care Visit [facility] [address] [place] [address] Orlando Escobar RN SN - WOUND HOME VISIT 06/20/2023 4:00 AM CDT Home Care Visit [facility] [address] [place] [address] Laurence Clemons RN SN - WOUND/OSTOMY CHART CONSULT 06/20/2023 Travel 06/20/2023 Telephone [facility] [address] [place] [address] Laurence Clemons RN Home Care (Wound care plan - requesting wound vac) 06/19/2023 1:30 PM CDT Home Care Visit [facility] [address] [place] [address] Luisa Burnett, PT PT - MISSED VISIT 06/19/2023 10:48 AM CDT - 06/19/2023 2:12 PM CDT Emergency [facility] [address] [place] [address] Alison Elmore NP Breast abscess (Primary Dx); Cellulitis, unspecified cellulitis site; Wound dehiscence Discharge Disposition: Home Self Care 06/19/2023 Telephone [facility] [address] [address] Alfredo Arce MD Appointment Reminder; Appointment Request 06/19/2023 Travel 06/19/2023 Nurse Triage [facility] [address] [place] [address] Laurence Mujica PA Home Care (Pain ) 06/19/2023 Nurse Triage [facility] [address] [place] [address] Laurence Mujica PA Pain In Breast 06/18/2023 5:00 PM CDT Home Care Visit [facility] [address] [place] [address] Radha Bob, CALLUM SN - WOUND HOME VISIT 06/18/2023 Home Care Visit [facility] [address] [place] [address] Radha Bob, RN CARE COORDINATION 06/17/2023 8:00 AM CDT Home Care Visit [facility] [address] [place] [address], [place] [address] Radha Bob, RN SN - WOUND HOME VISIT 06/16/2023 3:30 PM CDT Home Care Visit [facility] [address] [place] [address], [place] [address] Radha Bob, RN SN - WOUND HOME VISIT 06/15/2023 1:15 PM CDT Home Care Visit [facility] [address] [place] [address], [place] [address] Socorro Barajas LPN [employer] - HOME VISIT 06/14/2023 12:30 PM CDT Home Care Visit [facility] [address] [place] [address], [place] [address] Orlando Escobar, RN SN - HOME VISIT 06/14/2023 10:30 AM CDT Home Care Visit [facility] [address] [place] [address], [place] [address] Luisa Burnett, PT PT - HOME VISIT 06/13/2023 12:30 PM CDT Home Care Visit [facility] [address] [place] [address], [place] [address] Socorro Barajas LPN LPN - MISSED VISIT 06/13/2023 Home Care Visit [facility] [address] [place] [address], [place] [address] Orlando Escobar, RN CARE COORDINATION 06/12/2023 9:00 AM CDT Home Care Visit [facility] [address] [place] [address], [place] [address] Luisa Burnett PT PT - HOME VISIT 06/12/2023 Home Care Visit [facility] [address] [place] [address] Orlando Escobar RN SN - MISSED VISIT 06/12/2023 Telephone [facility] [address] [place] [address] Laurence Mujica PA Form (Jury Duty) from Last 3 Months Immunizations Name Administration [...] Sign Reading Time Taken Comments Blood Pressure 114/76 09/11/2023 1:22 PM CDT Pulse 79 09/11/2023 1:22 PM CDT Temperature 36.2 ??C (97.1 ??F) 09/10/2023 9:43 AM CD T Respiratory Rate 16 09/07/2023 10:45 AM CDT Oxygen Saturation 99% 09/11/2023 1:22 PM CDT Inhaled Oxygen Concentration - - Weight 85.4 kg (188 lb 4.8 oz) 08/03/2023 12:48 PM CDT Height 172.7 cm (5' 8) 08/03/2023 12:48 PM CDT Body Mass Index 28.63 08/03/2023 12:48 PM CDT Plan of Treatment Upcoming Encounters Date Type Department Care Team (Late st Contact Info) Description 09/14/2023 4:00 AM CDT Home Care Visit [facility] [address] [place] [address], [place] [address] Ivette Martinez, CALLUM 09/17/2023 4:00 AM CDT Home Care Visit [facility] [address] [place] [phone] Ivette Martinez, RN 09/21/2023 4:00 AM CDT Home Care Visit [facility] [address] [place] [address] Ivette Martinez, CALLUM 09/24/2023 4:00 AM CDT Home Care Visit [facility] [address] [place] [address] Ivette Martinez, CALLUM 09/28/2023 4:00 AM CDT Home Care Visit [facility] [address] [place] [address] Ivette Martinez, CALLUM 10/01/2023 4:00 AM CDT Home Care Visit [facility] [address] [place] [address] Ivette Martinez RN 10/05/2023 4:00 AM CDT Appointment [facility] [address] [place] [address] Ivette Martinez, CALLUM Health Maintenance Due Date Last Done Comments [...] Additional history exists Lipids for age 45-75 09/10/2028 09/11/2023, 11/30/2022, 12/01/2021, Additional history exists Tdap Completed 05/31/2011 HIV for age 15-65 Completed 09/20/2021, , 07/23/2007 Hepatitis C screening for ag e 18-79 Completed 09/20/2021, 09/20/2021, 03/12/2020, Additional history exists Procedures Procedure Name Priority Date/Time Associated Diagnosis Comments CBC WITH AUTO DIFFERENTIAL Routine 09/11/2023 2:24 PM CDT Left breast abscess TSH Routine 09/11/2023 2:24 PM CDT 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 LIPID PANEL W REFLEX MEASURED LDL Routine 09/11/2023 2:24 PM CDT Type 2 diabetes mellitus without complication, without long-term current use of insulin (HC) HEMOGLOBIN A1C Routine 09/11/2023 2:24 PM CDT Type 2 diabetes mellitus without complication, without long-term current use of insulin (HC) COMP METABOLIC PANEL Routine 09/11/2023 2:24 PM CDT Elevated LFTs CBC WITH AUTO DIFFERENTIAL Routine 09/11/2023 2:24 PM CDT Left breast abscess US RENAL AND BLADDER COMPLETE Routine 09/11/2023 11:00 AM CDT Neurogenic bladder SUPRAPUBIC TUBE PLACEMENT Routine 08/03/2023 2:46 PM [...] LACTATE VENOUS STAT 06/19/2023 11:39 AM CDT XR MAMMO KAYLEE BILAT SCREEN Routine 06/07/2022 9:19 AM CDT Visit for screening mammogram ANTI HIV 1/2 MALOU 09/20/2021 11:11 PM CDT ANTI HCV MALOU 09/20/2021 11:11 PM CDT from Last 3 Months or Most Recently Relevant to Health Maintenance Results * (ABNORMAL) CBC WITH AUTO DIFFERENTIAL (09/11/2023 2:24 PM CDT) Only the most recent of3 resultswithin the time period is included. WHITE BLOOD COUNT 5.5 4.5 - 11.0 thou/cu mm 09/11/2023 2:30 PM CDT [facility] RED BLOOD COUNT 4.54 4.00 - 5.20 mil/cu mm 09/11/2023 2:30 PM CDT [facility] HEMOGLOBIN 11.5(L) 12.0 - 16.0 g/dL 09/11/2023 2:30 PM CDT [facility] HEMATOCRIT 35.9 33.0 - 51.0 % 09/11/2023 2:30 PM CDT [facility] MCV 79(L) 80 - 100 fL 09/11/2023 2:30 PM CDT [facility] MCH 25.3(L) 26.0 - 34.0 pg 09/11/2023 2:30 PM CDT [facility] MCHC 32.0 32.0 - 36.0 g/dL 09/11/2023 2:30 PM CDT [facility] RDW 19.1(H) 11.5 - 15.5 % 09/11/2023 2:30 PM CDT [facility] PLATELET COUNT 259 140 - 440 thou/cu mm 09/11/2023 2:30 PM CDT [facility] MPV 9.5 6.5 - 11.0 fL 09/11/2023 2:30 PM CDT [facility] % NEUT 68.8 % 09/11/2023 2:30 PM CDT [facility] % LYMPH 15.3 % 09/11/2023 2:30 PM CDT [facility] % MONO 10.7 % 09/11/2023 2:30 PM CDT [facility] % EOS 4.7 % 09/11/2023 2:30 PM CDT [facility] % BASO 0.5 % 09/11/2023 2:30 PM CDT [facility] ABSOLUTE NEUTROPHILS 3.8 1.7 - 7.0 thou/cu mm 09/11/2023 2:30 PM CDT [facility] ABSOLUTE LYMPHOCYTES 0.8(L) 0.9 - 2.9 thou/cu mm 09/11/2023 2:30 PM CDT [facility] ABSOLUTE MONOCYTES 0.6 <0.9 thou/cu mm 09/11/2023 2:30 PM CDT [facility] ABSOLUTE EOSINOPHILS 0.3 <0.5 thou/cu mm 09/11/2023 2:30 PM CDT [facility] [facility] ABSOLUTE BASOPHILS 0.0 <0.3 thou/cu mm 09/11/2023 2:30 PM CDT [facility] Blood BLOOD SPECIMEN / Unknown Venipuncture / Unknown 09/11/2023 2:24 PM CDT 09/11/2023 2:25 PM CDT Laurence BERUMEN HEMATOLOGY [facility] [address] [place] [address], * LIPID PANEL W REFLEX MEASURED LDL (09/11/2023 2:24 PM CDT) CHOLESTEROL,TOTAL 154 100 - 199 mg/dL 09/12/2023 3:44 AM CDT [facility] Comment: Cholesterol, Total Reference Ranges Desirable <200 mg/dL Borderline 200-239 mg/dL High >=240 mg/dL TRIGLYCERIDES 69 <150 mg/dL 09/12/2023 3:44 AM CDT [facility] HDL CHOLESTEROL 50 >40 mg/dL 3:44 AM CDT [facility] NON-HDL CHOLESTEROL 104 <145 mg/dl 09/12/2023 3:44 AM CDT [facility] CHOL/HDL RATIO 3.08 <4.50 09/12/2023 3:44 AM CDT [facility] LDL CHOLESTEROL 90 <=130 mg/dL 09/12/2023 3:44 AM CDT [facility] VLDL CHOLESTEROL 14 <=30 mg/dL 09/12/2023 3:44 AM CDT [facility] PROVIDER ORDERED STATUS RANDOM 09/12/2023 3:44 AM CDT [facility] Blood BLOOD SPECIMEN / Unknown Venipuncture / Unknown 09/11/2023 2:24 PM CDT 09/11/2023 2:25 PM CDT Laurence BERUMEN CHEMISTRY Performing Organization Address [facility] de Phone Number [facility] [address] [place] [address], [place] * TSH (09/11/2023 2:24 PM CDT) TSH 1.36 0.27 - 4.20 uIU/mL 09/12/2023 3:44 AM CDT [facility] Blood BLOOD SPECIMEN / Unknown Venipuncture / Unknown 09/11/2023 2:24 PM CDT 09/11/2023 2:25 PM CDT Narrative [facility] - 09/12/2023 3:44 AM CDT In Adults, TSH values between 5.00 and 10.00 uIU/ml do not necessarily indicate the presence of Hypothyroidism. Correlation with clinical findings such as presence of goiter and/or Thyroperoxidase (TPO) Antibody may be helpful. For more information please refer to JESSICA 2004; 291: 228-238. Laurence BERUMEN CHEMISTRY Performing Organization Address [facility] Co de Phone Number [facility] [address] [place] [address], [place] * HEMOGLOBIN A1C MONITORING (POCT) (09/11/2023 2:24 PM CDT) HEMOGLOBIN A1C MONITORING (POCT) 5.6 <=6.4 % 09/11/2023 2:38 PM CDT [facility] Blood BLOOD SPECIMEN / Unknown Venipuncture / Unknown 09/11/2023 2:24 PM CDT 09/11/2023 2:25 PM CDT Narrative [facility] - 09/11/2023 2:38 PM CDT ? (<=6.9%) ? Indicates good control ? (7.0% to 7.9%) ? Indicates fair control ? (>=8.0%) ? Indicates poor control ?? NOTE: ??These thresholds are guidelines and ?individual targets may vary. Falsely low levels may be seen with: Recent Transfusion, Recent Significant Blood Loss, Hemolytic Diseases, or Falsely elevated levels may be seen with: Untreated Anemias, Splenectomy ? Laurence BERUMEN CHEMISTRY [facility] [address] [place] [address], [place] [phone] * (ABNORMAL) COMP METABOLIC PANEL (09/11/2023 2:24 PM CDT) Only the most recent of3 resultswithin the time period is included. SODIUM 139 136 - 145 mmol/L 09/12/2023 3:44 AM CDT [facility] POTASSIUM 4.3 3.5 - 5.1 mmol/L 09/12/2023 3:44 AM CDT [facility] CHLORIDE 99 98 - 107 mmol/L 09/12/2023 3:44 AM CDT [facility] CO2,TOTAL 30(H) 22 - 29 mmol/L 09/12/2023 3:44 AM CDT [facility] ANION GAP 10 5 - 18 09/12/2023 3:44 AM CDT [facility] GLUCOSE 107(H) 70 - 99 mg/dL 09/12/2023 3:44 AM T [facility] CALCIUM 9.5 8.6 - 10.0 mg/dL 09/12/2023 3:44 AM [facility] BUN 7 6 - 20 mg/dL 09/12/2023 3:44 AM [facility] CREATININE 0.57 0.50 - 0.90 mg/dL 09/12/2023 3:44 AM [facility] BUN/CREAT RATIO 12 10 - 20 3:44 AM [facility] eGFR >90 >90 mL/min/1.7 3m2 09/12/2023 3:44 AM [facility] Comment:As of 2021, eG FR is calculated by the CKD-EPI creatinine equation without race adjustment. ??eGFR can be influenced by muscle mass, exercise, and diet. ??The reported eGFR is an estimation only and is only applicable if the renal function is stable. ALBUMIN 4.4 4.0 - 4.9 g/dL 09/12/2023 3:44 AM [facility] PROTEIN,TOTAL 7.5 6.0 - 8.0 g/dL 09/12/2023 3:44 AM [facility] BILIRUBIN,TOTAL 0.3 0.0 - 1.2 mg/dL 09/12/2023 3:44 AM [facility] ALK PHOSPHATASE 157(H) 35 - 104 IU/L 09/12/2023 3:44 AM [facility] ALT (SGPT) 28 10 - 35 IU/L 09/12/2023 3:44 AM [facility] AST (SGOT) 35 10 - 35 IU/L 09/12/2023 3:44 AM [facility] Blood BLOOD SPECIMEN / Unknown Venipuncture / Unknown 09/11/2023 2:24 PM CDT 09/11/2023 2:25 PM CDT Laurence BERUMEN CHEMISTRY [facility] [address] [place] [address], [place] * US RENAL AND BLADDER COMPLETE (09/11/2023 11:00 AM CDT) Anatomical Region Laterality Modality Abdomen, AORTA, KIDNEYS Ultrasou nd 09/11/2023 11:2 9 AM CDT Impressions 09/11/2023 11:29 AM CDT Normal renal ultrasound. Catheter placement in the empty bladder similar to the CT scan of 06/19/2023. Dictated by Marcel Smith MD @ 09/11/2023 11:29:26 AM (Electronically Signed) Narrative 09/11/2023 11:29 AM CDT For Patients: ??As a result of the Cures Act, medical imaging exams and procedure reports are released immediately into your electronic medical record. ??You may view this report before your referring provider. ??If you have questions, please contact your health care provider. INDICATION: Neurogenic bladder. TECHNIQUE: Ultrasound renal bilateral. Forrest-scale and color Doppler sonographic images were acquired of the kidneys and urinary bladder. COMPARISON: None FINDINGS: Right kidney: 10.9 x 4.4 x 5.6 cm. Normal echotexture and cortex. No masses, stones, or hydronephrosis. Left kidney: 10.7 x 4.4 x 5.5 cm. Normal echotexture and cortex. No masses, stones, or hydronephrosis. Bladder: Suprapubic catheter present in an empty bladder. Procedure Note Raymond Smith MD - 09/11/2023 For Patients: As a result of the Cures Act, medical imagingexams and procedure reports are released immediately into your electronicmedical record. You may view this report before your referring provider.If you have questions, please contact your health care provider. INDICATION: Neurogenic bladder. TECHNIQUE: Ultrasound renal bilateral. Forrest-scale and color Doppler sonographicimages were acquired of the kidneys and urinary bladder. COMPARISON: None FINDINGS: Right kidney: 10.9 x 4.4 x 5.6 cm. Normal echotexture and cortex. Nomasses, stones, or hydronephrosis. Left kidney: 10.7 x 4.4 x 5.5 cm. Normal echotexture and cortex. Nomasses, stones, or hydronephrosis. Bladder: Suprapubic catheter present in an empty bladder. IMPRESSION: Normal renal ultrasound. Catheter placement in the empty bladder similarto the CT scan of 06/19/2023. Dictated by Marcel Smith MD @ 09/11/2023 11:29:26 AM (Electronically Signed) Nga White MD US * SUPRAPUBIC TUBE PLACEMENT (08/03/2023 2:46 PM [...] ??Pain and infection ??Alternatives discussed: ??No treatment Wing protocol: ??Procedure explained and questions answered to [...] * URINALYSIS MICROSCOPIC (08/03/2023 2:23 PM CDT) RBC None Seen 0-2, None Seen /HPF 08/03/2023 2:33 PM T [facility] WBC 0-2 0-2, 3-5, None Seen /HPF 08/03/2023 2:33 PM [facility] BACTERIA Rare None Seen, Rare, Few Bacteria/ HPF 08/03/2023 2:33 PM T [facility] EPITHELIAL CELLS Few None Seen, Few Epi/HPF 08/03/2023 2:33 PM [facility] Urine URINE SPECIMEN / Unknown Non-Blood / Unknown 08/03/2023 2:23 PM CDT 08/03/2023 2:[address] BERUMEN URINE Performing Organization Address [facility]/State/ZIP Co de Phone Number [facility] [address] [place] [address] * (ABNORMAL) URINALYSIS W REFLEX MICROSCOPIC IF POSITIVE (08/03/2023 2:23 PM CDT) COLOR Yellow Yellow Color 08/03/2023 2:30 PM [facility] CLARITY Clear Clear Clarity 08/03/2023 2:30 PM [facility] SPECIFIC GRAVITY,URINE <=1.005(A) 1.010, 1.015, 1.020, 1.025 08/03/2023 2:30 PM [facility] PH,URINE 7.0 6.0, 7.0, 8.0, 5.5, 6.5, 7.5, 8.5 08/03/2023 2:30 PM [facility] UROBILINOGEN, QUALITATIVE Normal Normal EU/dl 08/03/2023 2:30 PM [facility] PROTEIN, URINE Negative Negative mg/dL 08/03/2023 2:30 PM [facility] GLUCOSE, URINE Negative Negative mg/dL 08/03/2023 2:30 PM [facility] KETONES,URINE Negative Negative mg/dL 08/03/2023 2:30 PM [facility] BILIRUBIN,URI NE Negative Negative 08/03/2023 2:30 PM CDT [facility] OCCULT BLOOD,URINE Moderate(A) Negative 08/03/2023 2:30 PM CDT [facility] NITRITE Negative Negative 08/03/2023 2:30 PM CDT [facility] LEUKOCYTE ESTERASE Negative Negative 08/03/2023 2:30 PM CDT [facility] Urine URINE SPECIMEN / Unknown Non-Blood / Unknown 08/03/2023 2:23 PM CDT 08/03/2023 2:[address] BERUMEN URINE Performing Organization Address [facility]/ZIP Co de Phone Number [facility] [address] [place] [address] * BLOOD CULTURE X2 (08/03/2023 1:25 PM CDT) Only the most recent of4 resultswithin the time period is included. CULTURE No Growth. 08/08/2023 6:59 PM CDT [facility] Blood BLOOD SPECIMEN / Unknown Butterfly / Unknown 08/03/2023 1:25 PM CDT 08/03/2023 1:[address] BERUMEN MICROBIOLOG Y Performing Organization Address City/[facility]/ZIP Co de Phone Number [facility] [address] [place] [address] * LACTATE VENOUS (08/03/2023 1:17 PM CDT) Only the most recent of2 resultswithin the time period is included. LACTATE,VENOUS 1.1 0.5 - 2.0 mmol/L 08/03/2023 1:53 PM CDT [facility] Blood BLOOD SPECIMEN / Unknown Butterfly / Unknown 08/03/2023 1:17 PM CDT 08/03/2023 1:[address] BERUMEN CHEMISTRY Performing Organization Address City/[facility] Co de Phone Number [facility] [address] [place] [address] * (ABNORMAL) PROTIME-INR (08/03/2023 1:17 PM CDT) Only the most recent of2 resultswithin the time period is included. INR 1.2 <1.3 08/03/2023 1:43 PM CDT [facility] PROTIME 12.9(H) 10.3 - 12.3 sec 08/03/2023 1:43 PM CDT [facility] Blood BLOOD SPECIMEN / Unknown Butterfly / Unknown 08/03/2023 1:17 PM CDT 08/03/2023 1:33 PM CDT Narrative [facility] - 08/03/2023 1:43 PM CDT ?Therapeutic [...] UFH. Lane BERUMEN HEMATOLOGY Performing Organization Address [facility] Co de Phone Number [facility] [address] [place] [address] * XR CHEST 1 VIEW PORTABLE (08/03/2023 1:03 PM CDT) Anatomical Region Laterality Modality HEART, THORAX, CHEST Digital Rad iography 08/03/2023 1:08 PM CDT Impressions 08/03/2023 1:08 PM CDT No consolidation. Dictated by Roddy Ortiz MD @ 08/03/2023 1:08:07 PM (Electronically Signed) Narrative 08/03/2023 1:08 PM CDT For Patients: ??As a result of the s Act, medical [...] @ 06/19/2023 12:45:40 PM (Electronically Signed) Alison Epstein Ramírez BOW REPAIRER CUSTOM CT * PROCALCITONIN (06/19/2023 11:39 AM CDT) PROCALCITONIN 0.04 ng/ml 06/19/2023 12:21 PM CDT [facility] Blood BLOOD SPECIMEN / Unknown Butterfly / Unknown 06/19/2023 11:39 AM CDT 06/19/2023 11:47 AM CDT Narrative [facility] - 06/19/2023 12:21 PM CDT [...] are obtained. Alison Elmore NP SEND OUTS [facility] [address] [place], [place] [id number] * XR MAMMO KAYLEE BILAT SCREEN (06/07/2022 [...] care provider. XR MAMMO KAYLEE BILAT SCREEN [[id number]] CLINICAL HISTORY: ??This is an asymptomatic 47 [...] carly Non-React carly 09/23/2021 4:44 PM CDT [facility] Comment:Antibodies to HCV no t detected; does not exclude the possibility of exposure to HCV. Blood BLOOD SPECIMEN / Unknown Venipuncture / Unknown 09/20/2021 11:11 PM CDT 09/20/2021 11:15 PM CDT Bela Chávez MD [facility] [address] [place] [address], * ANTI HIV 1/2 (09/20/2021 11:11 PM CDT) Pathologist [facility] HIV-1/HIV-2 ANTIBODY Non-Reacti ve Non-Reacti ve 09/23/2021 6:18 PM CDT [facility] Comment:HIV-1 p24 and HIV-1/ HIV-2 Ab not detected. Blood BLOOD SPECIMEN / Unknown Venipuncture / Unknown 09/20/2021 11:11 PM CDT 09/20/2021 11:15 PM CDT Bela Chávez MD S[facility] 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 Healthcare Directive 12/15/2022 023 POLST [...] Intubation Drug Protocol: No Restrictions Care Teams Acoustic Intelligence Specialist Relationship Specialty Start Date End Date Laurence Mujica PA [address] [place] [address] PCP - General Physician Butting Saw Operator 07/16/14 Yumiko Garcia NP [address] [place] [address] Psychiatry Nurse Practitioner 04/07/16 Nga White MD [address] [place] [address] Surgery - Urology 06/15/22 [facility] [place] [address] [address] 04/30/23 [facility] [place] [address] [place] [address] 04/30/23
== END 2023-09-12 10:43 | disposition home or self-care (01) ==
PROVIDERS: PCP Physician Assistant; Visit Provider Surgery
DX: T81.31XA Disruption of external operation (surgical) wound, not elsewhere classified, initial encounter (principal); E11.628 Type 2 diabetes mellitus with other skin complications; Z79.84 Long term (current) use of oral hypoglycemic drugs
CPT/HCPCS: 97597

== ENCOUNTER 2023-09-26 10:54 | Outpatient (CLI) | payer MEDICAID, SELFPAY ==
--- OUTSIDE RECORDS SUMMARY | 2023-09-26 10:56 | XMS_ITS ---
Author Organization [facility] Address [address] [place] [address] [address] [place] [address] Care Team Providers Care Support Merchandiser Name Role Phone Laurence Mujica Primary Care Provider David Brar Unavailable [phone] Raymond Jurado DO Unavailable Unavailable Anton Griffin Unavailable [phone] Encounters Encounter Location Date Provider Diagnosis BV [address] [facility] [address] [place] [address] 09/26/2023 Anton Griffin Plan Of Treatment Next Appt Details Provider Name:Anton schmidt, 09/26/2023 01:45:00 PM, [address], [address], [place], [address], Progress Notes * Mariana MUHAMMAD RDOB:1975 (48 yo F)Acc No.[id number]:09/26/2023 Progress Notes Patient:?Mariana MUHAMMAD Provider:?Anton Griffin PA-C :1975???Age:48 Y???Sex:Female D ate:09/26/2023 Phone: Address:[address] [place] [address], [facility] Pcp:Laurence Mujica Subjective: * Chief Complaints: * ??? * Medical History:? Objective: * Vitals:? Assessment: Plan: * Treatment: * Billing Information: * Visit Code:? * Procedure Codes:? * Electronic signature of Yaniv Griffin PA-C on 09/26/2023 at 10:56 AM CDT Sign off status: Pending * Provider:?Anton Griffin PA-C Date:?09/06 Generated for Ke manriquez/Jordyn/Usama on:?09/26/2023 10:56 AM CDT
--- OUTSIDE RECORDS SUMMARY | 2023-09-26 10:56 | XMS_ITS ---
Author Organization [facility] Address [address] [place] [address] [address] [place] [address] Care Team Providers Care Plastic Battery Assembler Name Role Phone Laurence Mujica Primary Care Provider David Brar Unavailable [phone] Raymond Jurado DO Unavailable Unavailable Anton Griffin Unavailable [phone] REASON FOR VISIT confirm JES orders Encounters Encounter Location Date Provider Diagnosis [facility] [address] [place] [address] [address] [place] [address] 08/30/2023 Anton Griffin Plan Of Treatment Next Appt Details Provider Name:Anton schmidt, 09/26/2023 01:45:00 PM, [address], [address], [place], [address], Progress Notes * Mariana MUHAMMAD RDOB:1975 (48 yo F)Acc No.[id number]:08/30/2023 Patient:?Mariana Muhammad :1975???Age:48 Y???Sex:Female Phone: Address:[address] [place] [address], [place] [address] * true * Date:? Generated for Printi ng/Jordyn/eTransmitting on:?09/26/2023 10:56 AM CDT
--- OUTSIDE RECORDS SUMMARY | 2023-09-26 10:57 | XMS_ITS ---
Author Organization [facility] Address [address] [place] [address] [address] [place] [address] Care Team Providers Care Java Development Team Lead Name Role Phone Laurence Mujica Primary Care Provider UnavailDavid Tripathi Unavailable [phone] Raymond Jurado DO Unavailable Unavailable Anton Griffin Unavailable [phone] Allergies Allergen (clinical drug ingredient) Drug/Non Drug Allergy documented on EMR Reaction Allergy Type Onset Date Status hydromorphone Dilaudid chest pain Drug Allergy Ac tive fentanyl Fentanyl Hallucinations Drug Allergy Ac tive morphine Morphine chest pain Drug Allergy Active Results Component Value Reference Range Notes Urine toxicology Reviewed date:09/12/2023 03:11:17 PM Interpretation:See Results Performing Lab: Notes/Report: See Results OPI 300 1000 Urine toxicology Reviewed date:09/12/2023 03:11:17 PM Interpretation:See Results Performing Lab: Notes/Report: See Results OPI 300 1000 REASON FOR VISIT Dispersed [...] Diagnosis 104 [facility] [address] [facility] [address] [place] [address] 08/29/2023 Anton Griffin Pain in leg, unspecified M79.606 ; Fibromyalgia M79.7 ; Other chronic pain G89.29 ; 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 I have reviewed the [facility] database and did not find any [...] with any questions, problems or concerns. 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 I have reviewed the [facility] database and did not find any [...] any questions, problems or concerns. 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 Plan: * Treatment: 2.?senior care (current) use o f opiate analgesic?LAB: Urine toxicology 3.?Opioid dependence, uncomplicated?LAB: Urine toxicology* Errol Stokes 08/29/2023 02:45:42 PM CDT > Urine sample will be sent to the [facility] to be analyzed. Expected positives include: Dilauded. Last dose taken per patient: TOday. They have consented to completing a UDS today for (random) High risk monitoring. Our chemistry analyzer ([employer] Pentra 400) will screen for the following [...] direct to definitive if appropriate. 4.?Others? Notes: I, Hernandez Tran, am serving as a scribe to document [...] Weeks * Billing Information: * Visit Code:? 85964 Established Patient level 3. * Procedure Codes:? * Sign off status: Completed true * Provider:?Anton Griffin PA-C Date:?08/06 Generated for Ke manriquez/Jordyn/eTransmitting on:?09/26/2023 10:56 AM CDT History and Physical Notes * [...]
--- OUTSIDE RECORDS SUMMARY | 2023-09-26 10:57 | XMS_ITS | Encounter Summary ---
Author Organization [facility] Address [address] [place] [address] Care Team Providers Care News Writer Name Role Phone Elsewhere, Pcp Primary Care Provider Unavailabl e Encounter Details Date Type Department Care Team (Late st Contact Info) Description 09/18/2014 Historical Ophthalmology [facility] Kristen Westfall M.D. Social History Tobacco Use Types Packs/Day Years Used Date Smoking Tobacco: Never Assessed Sex and Gender Information Value Date Recorded Sex Assigned at Female 01/25/2022 2:30 PM BINDER AND BOX BUILDER Gender Identity Female 01/25/2022 2:30 PM BINDER AND BOX BUILDER Sexual Orientation Straight 01/25/2022 2: 30 PM BINDER AND BOX BUILDER documented as of this encounter Progress Notes [...] / PLAN Consult requested by: Josi Martinez [phone] #1 Blurred vision left eye. Today she [...] optic atrophy. CD[facility] Reports - EYEGEN Id: [id number] Status: Fnl documented in this encounter Plan of Treatment Not on file documented as of this encounter Visit Diagnoses Not on filedocumented in this encounter Additional Health Concerns Infection Onset Date Last Indicated Resolved Time COVID19 Pending 12/17/2020 12/17/2020 01/06/2021 4 :54 AM BINDER AND BOX BUILDER documented as of this encounter Care Teams News Writer Relationship Specialty Start Date End Date Elsewhere, Pcp PCP - General Family Medicine 12/19/20 documented as of this encounter
--- OUTSIDE RECORDS SUMMARY | 2023-09-26 10:57 | XMS_ITS | Encounter Summary ---
Author Organization [facility] Address [address] [place] [address] Care Team Providers Care Lead Sales Consultant Name Role Phone Elsewhere, Pcp Primary Care Provider Unavailabl e Encounter Details Date Type Department Care Team (Late st Contact Info) Description 03/26/2015 Historical Ophthalmology [facility] Adolph De Santiago M.D., Ph.D. [address] [place] [phone] Social History Tobacco Use Types Packs/Day Years Used Date Smoking Tobacco: Never Assessed Sex and Gender Information Value Date Recorded Sex Assigned at Female 01/25/2022 2:30 PM EXECUTIVE PRODUCER PROMOS Gender Identity Female 01/25/2022 2:30 PM EXECUTIVE PRODUCER PROMOS Sexual Orientation Straight 01/25/2022 2: 30 PM EXECUTIVE PRODUCER PROMOS documented as of this encounter Progress Notes [...] light perception) #8 new optic perineuritis, right [facility] Reports - EYEGEN Id: [id number] Status: Fnl documented in this encounter Plan of Treatment Not on file documented as of this encounter Visit Diagnoses Not on filedocumented in this encounter Additional Health Concerns Infection Onset Date Last Indicated Resolved Time COVID19 Pending 12/17/2020 12/17/2020 01/06/2021 4 :54 AM EXECUTIVE PRODUCER PROMOS documented as of this encounter Care Teams Lead Sales Consultant Relationship Specialty Start Date End Date Elsewhere, Pcp PCP - General Family Medicine 12/19/20 documented as of this encounter
--- OUTSIDE RECORDS SUMMARY | 2023-09-26 10:57 | XMS_ITS | Encounter Summary ---
Author Organization [facility] Address [address] [place] [address] Care Team Providers Care Match Maker Name Role Phone Elsewhere, Pcp Primary Care Provider Unavailabl e Encounter Details Date Type Department Care Team (Late st Contact Info) Description 02/16/2004 Historical Ophthalmology RST OPH Roddy Palmer M.D. [address] [place] [address] Social History Tobacco Use Types Packs/Day Years Used Date Smoking Tobacco: Never Assessed Sex and Gender Information Value Date Recorded Sex Assigned at Female 01/25/2022 2:30 PM SENIOR RESIDENT CARE DIRECTOR Gender Identity Female 01/25/2022 2:30 PM SENIOR RESIDENT CARE DIRECTOR Sexual Orientation Straight 01/25/2022 2: 30 PM SENIOR RESIDENT CARE DIRECTOR documented as of this encounter Progress Notes [...] #3 Pars planitis L CDM [facility] - [facility] Id: [id number] Status: Fnl documented in this encounter Plan of Treatment Not on file documented as of this encounter Visit Diagnoses Not on filedocumented in this encounter Additional Health Concerns Infection Onset Date Last Indicated Resolved Time COVID19 Pending 12/17/2020 12/17/2020 01/06/2021 4 :54 AM SENIOR RESIDENT CARE DIRECTOR documented as of this encounter Care Teams Match Maker Relationship Specialty Start Date End Date Elsewhere, Pcp PCP - General Family Medicine 12/19/20 documented as of this encounter
--- OUTSIDE RECORDS SUMMARY | 2023-09-26 10:57 | XMS_ITS | Referral Summary ---
Author Organization [facility] Address [address] [place] [address] Care Team Providers Care Needle Loom Setter Name Role Phone Elsewhere, Pcp Primary Care Provider Unavailabl e Source Comments Patient records contain information from all sites at [facility]. For routine questions regarding patient records, call [phone] during business hours, M-F 8:00 AM - 5:00 PM Central Time. Record requests for emergency care only can be directed to [phone] at any time.[facility] Allergies Active Allergy Reactions Criticality Noted [...] Given: Not Answered Comments:Smokes more when stressed [facility] Utilities Answer Date Recorded In the past 12 months has e [employer], gas, oil, or water [employer] threatened to shut off services in your [...] declined 01/25/2022 How often do you attend roman catholic or jainism serv ices? Never 01/25/2022 Do you belong to any clubs o r organizations such as roman catholic groups, unions, fraternal or athletic groups, or [...] medical care, and heating? Very hard 01/25/2022 [facility] - Occupational [...] Sex Assigned at Female 01/25/2022 2:30 PM CAFE SERVER Gender Identity Female 01/25/2022 2:30 PM CAFE SERVER Sexual Orientation Straight 01/25/2022 2: 30 PM CAFE SERVER Last Filed Vital Signs Vital Sign Reading Time Taken Comments Blood Pressure 96/66 04/24/2023 9:27 AM CDT Pulse 73 04/24/2023 9:27 AM CDT Temperature 36.6 ??C (97.9 ??F) 12/19/2020 6:19 AM CS T Respiratory Rate 16 12/19/2020 6:19 AM CAFE SERVER Oxygen Saturation 94% 12/19/2020 6:19 AM CAFE SERVER Inhaled Oxygen Concentration - - Weight 104 kg (228 lb 13.4 oz) 12/28/2020 8:51 A M CAFE SERVER Height 175.3 cm (5' 9) 12/17/2020 10:53 PM CAFE SERVER Body Mass Index 33.79 12/17/2020 10:53 PM CAFE SERVER Plan of Treatment Not on file Medical Devices Implanted Type Area Buffing Wheel Operator Device Identifier Shelf Expiration Date Model [...] METABOLIC PANEL, S/P Routine 12/19/2020 7:20 AM CAFE SERVER OPHTHALMOLOGY IMAGE EXAM Routine 03/26/2015 12:00 AM CAFE SERVER CHRONIC VIRAL HEPATITIS PROFILE Routine 04/28/2014 6:41 PM CDT HIV-1/-2 AG AND AB SCREEN Routine 04/28/2014 6:41 PM CDT HEMOGLOBIN A1C, B Routine 04/27/2014 1:2 2 PM CDT from Last 3 Months or Most Recently Relevant to Health Maintenance Results * (ABNORMAL) Basic Metabolic Panel (12/19/2020 7:20 AM CAFE SERVER) Potassium, P 4.5 3.6 - 5.2 mmol/L 12/19/2020 8:08 AM CAFE SERVER MKTO Sodium, P 134(L) 135 - 145 mmol/L 12/19/2020 8:08 AM CAFE SERVER MKTO Chloride, P 102 98 - 107 mmol/L 12/19/2020 8:08 AM CAFE SERVER MKTO Bicarbonate, P 24 22 - 29 mmol/L 12/19/2020 8:08 AM CAFE SERVER MKTO Anion Gap, P 8 7 - 15 12/19/2020 8:08 AM CAFE SERVER MKTO BUN (Blood Urea Nitrogen), P 13 6 - 21 mg/dL 12/19/2020 8:08 AM CAFE SERVER MKTO Creatinine 0.51(L) 0.59 - 1.04 mg/dL 12/19/2020 8:08 AM CAFE SERVER MKTO eGFR-Black/Afri can Barbadian >90 >=60 mL/min/BSA 12/19/2020 8:08 AM CAFE SERVER MKTO Comment: ----ADDITIONAL INFORMATION---- Estimated GFR calculated using the 2009 CKD_EPI creatinine equation. eGFR Non-Black/Afric an Barbadian >90 >=60 mL/min/BSA 12/19/2020 8:08 AM CAFE SERVER MKTO Comment: ----ADDITIONAL INFORMATION---- Estimated GFR calculated using the 2009 CKD_EPI creatinine equation. Calcium, Total, P 9.4 8.6 - 10.0 mg/dL 12/19/2020 8:08 AM CAFE SERVER MKTO Glucose, P 142(H) 70 - 140 mg/dL 12/19/2020 8:08 AM CAFE SERVER MKTO Blood (Blood, Venous) 12/19/2020 7:20 AM CAFE SERVER 12/19/2020 7:34 AM CAFE SERVER Jerome Erickson LAB BLOOD ADD-ON Performing Organization Address City/State/[facility] Co de Phone Number [facility] [address] [place] [address], [facility] [address]TO [place] [address] * OPHTHALMOLOGY IMAGE EXAM (03/26/2015 12:00 AM CAFE SERVER) Anatomical Region Laterality Modality Other 03/26/2015 Addenda Addendum by ProviderJames M.D. on 03/26/2015 12:00 AM CAFE SERVER OPH^^^MCR Eyes Visual [place] 03/26/2015 00:00:00 Historical [...] ORDERABLES [facility] [address] [place] [address], [facility] * Chronic Hepatitis Profile (04/28/2014 6:41 [...] [facility] HCV Ab, S Negative Negative [facility] Comment:Ljnduk-yy-ihxjwi rat io is <1.00. 04/28/2014 6:41 PM CDT 04/28/2014 6:41 PM CDT Cirilo Mendez M.D. LAB MICROB IOLOGY - BLOOD ORDERABLES [facility] [address] * Hemoglobin A1c (04/27/2014 1:22 PM CDT) Hemoglobin A1c, B 5.1 4.0 - 6.0 % [facility] 04/27/2014 1:22 PM CDT 04/27/2014 1:22 PM CDT Db Sousa M.D., M.A. LAB BLOOD ADD -ON [facility] [address] from Last 3 Months or Most Recently Relevant to Health Maintenance Advance Directives For more information, please contact: [phone] * Full Code (Latest Code Status on File) Date Activated Date Inactivated Comments 12/18/2020 1:35 AM 12/19/2020 3:25 PM Question Answer Comments Full Code: Discussed Care Teams Needle Loom Setter Relationship Specialty Start Date End Date Elsewhere, Pcp PCP - General Family Medicine 12/19/20
--- OUTSIDE RECORDS SUMMARY | 2023-09-26 10:57 | XMS_ITS | Encounter Summary ---
Author Organization [facility] Address [address] [place] [address] Care Team Providers Care Recycling Worker Name Role Phone Elsewhere, Pcp Primary Care Provider Unavailabl e Encounter Details Date Type Department Care Team (Late st Contact Info) Description 07/20/2006 Historical Ophthalmology RST OPH Roddy Palmer M.D. [address] [place] [address] Social History Tobacco Use Types Packs/Day Years Used Date Smoking Tobacco: Never Assessed Sex and Gender Information Value Date Recorded Sex Assigned at Female 01/25/2022 2:30 PM STAND UP FORKLIFT OPERATOR Gender Identity Female 01/25/2022 2:30 PM STAND UP FORKLIFT OPERATOR Sexual Orientation Straight 01/25/2022 2: 30 PM STAND UP FORKLIFT OPERATOR documented as of this encounter Progress [...] visual changes, left eye. CD Reports - [facility] Status: Fnl documented in this encounter Plan of Treatment Not on file documented as of this encounter Visit Diagnoses Not on filedocumented in this encounter Additional Health Concerns Infection Onset Date Last Indicated Resolved Time COVID19 Pending 12/17/2020 12/17/2020 01/06/2021 4 :54 AM STAND UP FORKLIFT OPERATOR documented as of this encounter Care Teams Recycling Worker Relationship Specialty Start Date End Date Elsewhere, Pcp PCP - General Family Medicine 12/19/20 documented as of this encounter
--- OUTSIDE RECORDS SUMMARY | 2023-09-26 10:57 | XMS_ITS | Encounter Summary ---
Author Organization [facility] Address [address] [place] [address] Care Team Providers Care Final Armature Tester Name Role Phone Elsewhere, Pcp Primary Care Provider Unavailabl e Encounter Details Date Type Department Care Team (Late st Contact Info) Description 04/29/2014 Historical Ophthalmology RST OPH Gracie Marroquin M.D. [address] [place] [id number] Social History Tobacco Use Types Packs/Day Years Used Date Smoking Tobacco: Never Assessed Sex and Gender Information Value Date Recorded Sex Assigned at Female 01/25/2022 2:30 PM QUALITY PROCESS ENGINEER Gender Identity Female 01/25/2022 2:30 PM QUALITY PROCESS ENGINEER Sexual Orientation Straight 01/25/2022 2: 30 PM QUALITY PROCESS ENGINEER documented as of this encounter Progress [...] Patient had a dilated eye exam at [facility] wit Dr. Price on 04/27/14 swelling and pain of the right eye. His exam indicated a third nerve palsy and the patient was referred to Neurology at that time. She presented to [place] ED later that day and was admitted [...] orb; t ORIGINAL REPORT - 27-Apr-2014 19:39:00 [facility] EXAM: MRI Brain without and with IV [...] surgery. Electronically signed by: Leatha Gunderson MD [id number] 27-Apr-2014 19:39 HR: confirmed above history. syptoms x last 1 week, pain around right eye, numbness and tingling inupper right face/forehead IMPRESSION / REPORT / PLAN Consult requested by: NEURO [phone] #1 Orbital inflammation, right #2 History of [...] Pseudophakia, left CDM Reports - [facility] Id: [id number] Status: Fnl documented in this encounter Plan of Treatment Not on file documented as of this encounter Visit Diagnoses Not on filedocumented in this encounter Additional Health Concerns Infection Onset Date Last Indicated Resolved Time COVID19 Pending 12/17/2020 12/17/2020 01/06/2021 4 :54 AM QUALITY PROCESS ENGINEER documented as of this encounter Care Teams Final Armature Tester Relationship Specialty Start Date End Date Elsewhere, Pcp PCP - General Family Medicine 12/19/20 documented as of this encounter
--- OUTSIDE RECORDS SUMMARY | 2023-09-26 10:57 | XMS_ITS ---
Author Organization [facility] Address [address] [place] [address] Care Team Providers Care Home Care Consultant Name Role Phone Unavailable Unavailable Unavailable Surgery Details Not on file Complications Check Surgery Details section. Procedure Estimated Blood Loss Check Surgery Details section. Procedure Findings Check Surgery Details section. Procedure Specimens Taken Check Surgery Details section.
--- OUTSIDE RECORDS SUMMARY | 2023-09-26 10:57 | XMS_ITS | Clinical Summary ---
Author Organization [facility] Address [address] [place] [address] Care Team Providers Care Brim Pouncer Machine Operator Name Role Phone Elsewhere, Pcp Primary Care Provider Unavailabl e Source Comments Patient records contain information from all sites at [facility]. For routine questions regarding patient records, call [phone] during business hours, M-F 8:00 AM - 5:00 PM Central Time. Record requests for emergency care only can be directed to [phone] at any time.[facility] Allergies Active Allergy Reactions Criticality Noted Date [...] Answered Comments:Smokes more when stressed [facility] Utilities Answer Date Recorded In the past 12 months has [facility] [employer], gas, oil, or water [employer] threatened to shut off services in your [...] declined 01/25/2022 How often do you attend pentecostalism or mosque serv ices? Never 01/25/2022 Do you belong to any clubs o r organizations such as pentecostalism groups, unions, fraternal or athletic groups, or [...] medical care, and heating? Very hard 01/25/2022 [facility] - [...] Sex Assigned at Female 01/25/2022 2:30 PM SCALE ASSEMBLY SET UP WORKER Gender Identity Female 01/25/2022 2:30 PM SCALE ASSEMBLY SET UP WORKER Sexual Orientation Straight 01/25/2022 2: 30 PM SCALE ASSEMBLY SET UP WORKER Last Filed Vital Signs Vital Sign Reading Time Taken Comments Blood Pressure 96/66 04/24/2023 9:27 AM CDT Pulse 73 04/24/2023 9:27 AM CDT Temperature 36.6 ??C (97.9 ??F) 12/19/2020 6:19 AM CS T Respiratory Rate 16 12/19/2020 6:19 AM SCALE ASSEMBLY SET UP WORKER Oxygen Saturation 94% 12/19/2020 6:19 AM SCALE ASSEMBLY SET UP WORKER Inhaled Oxygen Concentration - - Weight 104 kg (228 lb 13.4 oz) 12/28/2020 8:51 A M SCALE ASSEMBLY SET UP WORKER Height 175.3 cm (5' 9) 12/17/2020 10:53 PM SCALE ASSEMBLY SET UP WORKER Body Mass Index 33.79 12/17/2020 10:53 PM SCALE ASSEMBLY SET UP WORKER Plan of Treatment Health Maintenance Due [...] this topic Medical Devices Implanted Type Area Camper Assembler Device Identifier Shelf Expiration Date Model / [...] METABOLIC PANEL, S/P Routine 12/19/2020 7:20 AM SCALE ASSEMBLY SET UP WORKER OPHTHALMOLOGY IMAGE EXAM Routine 03/26/2015 12:00 AM SCALE ASSEMBLY SET UP WORKER CHRONIC VIRAL HEPATITIS PROFILE Routine 04/28/2014 6:41 PM CDT HIV-1/-2 AG AND AB SCREEN Routine 04/28/2014 6:41 PM CDT HEMOGLOBIN A1C, B Routine 04/27/2014 1:2 2 PM CDT from Last 3 Months or Most Recently Relevant to Health Maintenance Results * (ABNORMAL) Basic Metabolic Panel (12/19/2020 7:20 AM SCALE ASSEMBLY SET UP WORKER) Potassium, P 4.5 3.6 - 5.2 mmol/L 12/19/2020 8:08 AM SCALE ASSEMBLY SET UP WORKER MKTO Sodium, P 134(L) 135 - 145 mmol/L 12/19/2020 8:08 AM SCALE ASSEMBLY SET UP WORKER MKTO Chloride, P 102 98 - 107 mmol/L 12/19/2020 8:08 AM SCALE ASSEMBLY SET UP WORKER MKTO Bicarbonate, P 24 22 - 29 mmol/L 12/19/2020 8:08 AM SCALE ASSEMBLY SET UP WORKER MKTO Anion Gap, P 8 7 - 15 12/19/2020 8:08 AM SCALE ASSEMBLY SET UP WORKER MKTO BUN (Blood Urea Nitrogen), P 13 6 - 21 mg/dL 12/19/2020 8:08 AM SCALE ASSEMBLY SET UP WORKER MKTO Creatinine 0.51(L) 0.59 - 1.04 mg/dL 12/19/2020 8:08 AM SCALE ASSEMBLY SET UP WORKER MKTO eGFR-Black/Afri can Irish >90 >=60 mL/min/BSA 12/19/2020 8:08 AM SCALE ASSEMBLY SET UP WORKER MKTO Comment: ----ADDITIONAL INFORMATION---- Estimated GFR calculated using the 2009 CKD_EPI creatinine equation. eGFR Non-Black/Afric an Irish >90 >=60 mL/min/BSA 12/19/2020 8:08 AM SCALE ASSEMBLY SET UP WORKER MKTO Comment: ----ADDITIONAL INFORMATION---- Estimated GFR calculated using the 2009 CKD_EPI creatinine equation. Calcium, Total, P 9.4 8.6 - 10.0 mg/dL 12/19/2020 8:08 AM SCALE ASSEMBLY SET UP WORKER MKTO Glucose, P 142(H) 70 - 140 mg/dL 12/19/2020 8:08 AM SCALE ASSEMBLY SET UP WORKER MKTO Blood (Blood, Venous) 12/19/2020 7:20 AM SCALE ASSEMBLY SET UP WORKER 12/19/2020 7:34 AM SCALE ASSEMBLY SET UP WORKER Jerome Erickson LAB BLOOD ADD-ON Performing Organization Address [facility]/State/[facility] Co de Phone Number [facility] [address] [place] [address], [place] [address] * OPHTHALMOLOGY IMAGE EXAM (03/26/2015 12:00 AM SCALE ASSEMBLY SET UP WORKER) Anatomical Region Laterality Modality Other 03/26/2015 Addenda Addendum by ProviderJames M.D. on 03/26/2015 12:00 AM SCALE ASSEMBLY SET UP WORKER OPH^^^MCR Eyes Visual [place]rum 03/26/2015 00:00:00 Historical Provider IMG NON RAD IMAGING PROCEDURES * HIV-1/-2 Ag and Ab Screen (04/28/2014 6:41 PM CDT) Pathologist [facility] HIV-1/-2 Ag and Ab Screen, S Negative Negative [facility] Comment: Negative result does not rule out HIV infection. If ? acute HIV infection is suspected in a high-risk ? individual, submit plasma specimen for HIV-1 RNA ? quantification test (HIVQU) and/or HIV-2 DNA/RNA ? test (FHV2Q). ? 04/28/2014 6:41 PM CDT 04/28/2014 6:41 PM CDT Cirilo Mendez M.D. LAB MICROB IOLOGY - BLOOD ORDERABLES [facility] [address] [place] [address], [facility] * Chronic Hepatitis Profile (04/28/2014 6:41 PM CDT) HBs Antigen, S Negative Negative [facility] HBc Total Ab, S Negative Negative [facility] HBs Antibody,S Negative Unvaccinated : Negative; Vaccinated: Positive [facility] Comment:Patient is presumed to be not immune to infection with HBV. HBs Antibody, Quantitative, S <5.0 Unvaccinated : <5.0; Vaccinated: >=12.0 MIU/ML [facility] HCV Ab, S Negative Negative [facility] Comment:Xratwf-fk-ysihqy rat io is <1.00. 04/28/2014 6:41 PM CDT 04/28/2014 6:41 PM CDT Cirilo Mendez M.D. LAB MICROB IOLOGY - BLOOD ORDERABLES [facility] [address] * Hemoglobin A1c (04/27/2014 1:22 PM CDT) Hemoglobin A1c, B 5.1 4.0 - 6.0 % [facility] 04/27/2014 1:22 PM CDT 04/27/2014 1:22 PM CDT Db Sousa M.D., M.A. LAB BLOOD ADD -ON [facility] [address] from Last 3 Months or Most Recently Relevant to Health Maintenance Advance Directives For more information, please contact: [phone] * Full Code (Latest Code Status on File) Date Activated Date Inactivated Comments 12/18/2020 1:35 AM 12/19/2020 3:25 PM Question Answer Comments Full Code: Discussed Care Teams Brim Pouncer Machine Operator Relationship Specialty Start Date End Date Elsewhere, Pcp PCP - General Family Medicine 12/19/20
--- OUTSIDE RECORDS SUMMARY | 2023-09-26 10:57 | XMS_ITS | Encounter Summary ---
Author Organization [facility] Address [address] [place] [address] Care Team Providers Care Direct Marketing Executive Name Role Phone Elsewhere, Pcp Primary Care Provider Unavailabl e Encounter Details Date Type Department Care Team (Late st Contact Info) Description 12/15/2014 Historical Ophthalmology RST OPH Adolph De Santiago M.D., Ph.D. [address] [place] [address] Social History Tobacco Use Types Packs/Day Years Used Date Smoking Tobacco: Never Assessed Sex and Gender Information Value Date Recorded Sex Assigned at Female 01/25/2022 2:30 PM ANALYTICAL LABORATORY TECHNICIAN Gender Identity Female 01/25/2022 2:30 PM ANALYTICAL LABORATORY TECHNICIAN Sexual Orientation Straight 01/25/2022 2: 30 PM ANALYTICAL LABORATORY TECHNICIAN documented as of this encounter Progress [...] light perception) CDM Reports - [facility] Id: [id number] Status: Fnl documented in this encounter Plan of Treatment Not on file documented as of this encounter Visit Diagnoses Not on filedocumented in this encounter Additional Health Concerns Infection Onset Date Last Indicated Resolved Time COVID19 Pending 12/17/2020 12/17/2020 01/06/2021 4 :54 AM ANALYTICAL LABORATORY TECHNICIAN documented as of this encounter Care Teams Direct Marketing Executive Relationship Specialty Start Date End Date Elsewhere, Pcp PCP - General Family Medicine 12/19/20 documented as of this encounter
--- OUTSIDE RECORDS SUMMARY | 2023-09-26 10:57 | XMS_ITS | Encounter Summary ---
Author Organization [facility] Address [address] [place] [address] Care Team Providers Care Cash Management Associate Name Role Phone Elsewhere, Pcp Primary Care Provider Unavailabl e Encounter Details Date Type Department Care Team (Late st Contact Info) Description 03/25/2015 Historical Ophthalmology RST OPH Jocelin Scott M.D. Social History Tobacco Use Types Packs/Day Years Used Date Smoking Tobacco: Never Assessed Sex and Gender Information Value Date Recorded Sex Assigned at Female 01/25/2022 2:30 PM EMPLOYEE OPERATIONS EXAMINER Gender Identity Female 01/25/2022 2:30 PM EMPLOYEE OPERATIONS EXAMINER Sexual Orientation Straight 01/25/2022 2: 30 PM EMPLOYEE OPERATIONS EXAMINER documented as of this encounter Progress [...] light perception) CDM Reports - [facility] Id: [id number] Status: Fnl documented in this encounter Plan of Treatment Not on file documented as of this encounter Visit Diagnoses Not on filedocumented in this encounter Additional Health Concerns Infection Onset Date Last Indicated Resolved Time COVID19 Pending 12/17/2020 12/17/2020 01/06/2021 4 :54 AM EMPLOYEE OPERATIONS EXAMINER documented as of this encounter Care Teams Cash Management Associate Relationship Specialty Start Date End Date Elsewhere, Pcp PCP - General Family Medicine 12/19/20 documented as of this encounter
--- OUTSIDE RECORDS SUMMARY | 2023-09-26 10:57 | XMS_ITS | Patient Health Record ---
Author Organization [facility] Address [address] [place] [address] [address] [place] [address] Care Team Providers Care Analytical Sciences Director Name Role Phone Laurence Mujica Primary Care Provider UnavailDavid Tripathi Unavailable [phone] Raymond Jurado DO Unavailable Unavailable Anton Griffin Unavailable [phone] Rod Golden Unavailable [phone] Fabian Walsh Unavailable [phone] Allergies Allergen (clinical drug ingredient) Drug/Non Drug [...] Results OPI 300 1000 Urine toxicology Reviewed date:03/07/2023 03:21:55 PM Interpretation:See Results Performing Lab: Notes/Report: See Results OPI 300 1000 Urine toxicology Reviewed date:11/14/2022 [...] W/U Status Risk Notes Problem Opioid dependence (55638686) Opioid dependence, uncomplicated (F11.20) Active confirmed Problem Unspecified Personality Disorder; rule out mixed ( borderline, dependent, negativistic, explosive traits); rule out organic (38470069) Personality disorder, unspecified (F60.9) 08/25/19 09 Active confirmed Problem Chronic pain (99843384) Other chronic pain (G89.29) Active confirmed Problem Rheumatoid arthritis (05241200) Rheumatoid arthritis, unspecified (M06.9) Active confirmed Problem Systemic lupus erythematosus (62006120) Systemic lupus erythematosus, unspecified (M32.9) Active confirmed Problem Pain in limb (83544438) Pain in leg, unspecified (M79.606) Active confirmed Problem Fibromyalgia (051187102) Fibromyalgia (M79.7) Active confirmed Vital Signs Blood pressure diastolic 76 mm Hg 08/29/2023 Height 69 in 08/29/2023 Blood pressure systolic 118 mm Hg 08/29/2023 Weight 187 lbs 07/31/2023 BMI 27.61 kg/m2 07/31/2023 Encounters Encounter Location Date Provider Diagnosis [facility] [address] [address] 09/27/2022 Anton Bolick Pain in leg, unspecified M79.606 ; Fibromyalgia M79.7 and Other chronic pain G89.29 [facility] [address] [address] 10/25/2022 Anton Bolick Pain in leg, unspecified M79.606 ; Fibromyalgia M79.7 ; Other chronic pain G89.29 ; half-way (current) use of opiate analgesic Z79.891 and Opioid dependence, uncomplicated F11.20 [facility] [address] [place] [address] 11/21/2022 Anton Bolick Pain in leg, unspecified M79.606 ; Fibromyalgia M79.7 and Other chronic pain G89.29 [facility] [address] [facility] [address] [place] [address] 12/20/2022 Anton Bolick Pain in leg, unspecified M79.606 ; Fibromyalgia M79.7 and Other chronic pain G89.29 [facility] [address] [place] [address] 2023 Anton Bolick Pain in leg, unspecified M79.606 ; Fibromyalgia M79.7 ; Other chronic pain G89.29 ; 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 ; Opioid dependence, uncomplicated F11.20 and Encounter for screening for other disorder Z13.89 [facility] [address] [facility] [address] [place] [address] 02/06/2023 Anton Bolick Pain in leg, unspecified M79.606 ; Fibromyalgia M79.7 ; Other chronic pain G89.29 ; half-way (current) use of opiate analgesic Z79.891 ; Opioid dependence, uncomplicated F11.20 and Encounter for screening for other disorder Z13.89 [facility] [address] [facility] [address] [place] [address] 03/08/2023 Rod Golden Pain in leg, unspecified M79.606 ; Fibromyalgia M79.7 and Other chronic pain G89.29 [facility] [address] [facility] [address] [place] [address] 03/13/2023 Anton Bolick Pain in leg, unspecified M79.606 ; Fibromyalgia M79.7 and Other chronic pain G89.29 [facility] [address] [facility] [address] [place] [address] 04/10/2023 Anton Bolick Fibromyalgia M79.7 ; Pain in leg, unspecified M79.606 and Other chronic pain G89.29 [address] [facility] [address] [place] [address] 05/08/2023 Anton Bolick Fibromyalgia M79.7 ; Pain in leg, unspecified M79.606 ; Other chronic pain G89.29 ; 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 and Opioid dependence, uncomplicated F11.20 [facility] [address] [facility] [address] [place] [address] 06/06/2023 Anton Bolick Fibromyalgia M79.7 ; Pain in leg, unspecified M79.606 and Other chronic pain G89.29 [address] [facility] [address] [place] [address] 07/04/2023 Anton Bolick Other chronic pain G89.29 and Pain in leg, unspecified M79.606 [address] [facility] [address] [place] [address] 07/31/2023 Anton Bolick Pain in leg, unspecified M79.606 ; Fibromyalgia M79.7 and Other chronic pain G89.29 [address] [facility] [address] [place] [address] 08/29/2023 Anton Bolick Pain in leg, unspecified M79.606 ; Fibromyalgia M79.7 ; Other chronic pain G89.29 ; 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 and Opioid dependence, uncomplicated F11.20 [facility] [address] [place] [address] [address] [place] [address] 10/26/2022 Anton Bolick Other chronic pain G89.29 [facility] [address] [place] [address] [address] [place] [address] 12/25/2022 Anton Bolick Other chronic pain G89.29 [facility] [address] [place] [address] [address] [place] [address] 2023 Anton Bolick [facility] [address] [place] [address] [address] [place] [address] 02/06/2023 Anton Bolick [facility] [address] [place] [address] [address] [place] [address] 05/11/2023 Anton Bolick [facility] [address] [place] [address] [address] [place] [address] 08/30/2023 Anton Bolick Assessments Encounter Date Diagnosis [...] dispersed body pain. I have reviewed the [facility] database and did not find any inconsistencies. [...] dispersed body pain. I have reviewed the [place] [employer] [facility] database and did not find any inconsistencies. [...] her chronic pain. I have reviewed the [facility] database and did not find any inconsistencies. [...] to feet pain. I have reviewed the [place] [employer] database and did not find any inconsistencies. [...] dispersed body pain. I have reviewed the [place] [employer] database and did not find any inconsistencies. [...] dispersed body pain. I have reviewed the [facility] database and did not find any inconsistencies. [...] dispersed body pain. I have reviewed the [facility] database and did not find any inconsistencies. [...] dispersed body pain. I have reviewed the [place] [employer] database and did not find any inconsistencies. [...] dispersed body pain. I have reviewed the [facility] database and did not find any inconsistencies. [...] to feet pain. I have reviewed the [facility] database and did not find any inconsistencies. [...] her chronic pain. I have reviewed the [facility] database and we discussed her current symptoms and medications. Due to her recent procedure and [facility] treatment, Mariana has been prescribed sufficient pain medication for the time being. I have obtained ROIs to [facility] and the [facility] for further evaluation of her most recent treatment history. Otherwise she will follow up in a week to further discuss medication management. This treatment plan was reviewed with Mariana, and she was agreeable. Plan:1. BRITNEY to [facility] and [facility]2. Continue Oxycodone 20mg BID3. Follow up [...] with any questions, problems or concerns. 05/08/2023 half-way (current) use of opiate analgesic (ICD-10 - Z79.891) 06/06/2023 Other chronic pain (ICD-10 - G89.29) Mariana returns to clinic today for a follow up evaluation regarding her chronic pain. I have reviewed the [facility] database and did not find any inconsistencies. [...] dispersed body pain. I have reviewed the [facility] database and did not find any inconsistencies. [...] with any questions, problems or concerns. 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 01/16/2023 Other Chris Min , am serving as a scribe to document services personally performed by Anton Griffin PA-C, based upon my observations and the provider's statements to me. All documentation has been reviewed by the aforementioned MIRELLA as well as lAbin Michaud MD, prior to being entered into [...] the decisions made by her. 03/07/2023 Other Vickey Min, am serving as a scribe to document services personally performed by Anton Griffin PA-C based upon my observations and the provider's statements to me. All documentation has been reviewed by the aforementioned doctor prior to being entered into the official medical record. Mechelle, Anton Griffin PA-C attest that the above named individual is acting in scribe capacity, has observed my performance of the services and has documented them in accordance with my direction. The documentation recorded by the scribe accurately reflects the service I personally performed and the decisions made by me. 09/27/2022 Other Adry Min, am serving as [...] during the clinic visit. 10/25/2022 Other I, Adryjenn bradley, am serving as a scribe to [...] by the aforementioned PAMichaelC as well as Victor Hugo Wheat MD, [...] the decisions made by her. 12/20/2022 Other IGarret, am serving as a scribe to document [...] the decisions made during the clinic visit. 2023 Other I, Maribel kong, am serving [...] the decisions made during the clinic visit. 03/08/2023 Other I, Navneet Lopez , am [...] made during the clinic visit. 07/04/2023 Other Mechelle, Vickey Strong, am serving as a scribe [...] during the clinic visit. Plan Of Treatment Next Appt Details Provider Name:Anton schmidt, 09/26/2023 01:45:00 PM, [address], [address], [place], [address], Insurance Providers Payer Name Payer Address Payer Phone Subscriber Number Group Number Insured Name Patient Relationship to Insured Coverage Start Date Coverage End Date [facility] [address] [place] [address] [id number] Mariana Muhammad Self - patient is the insured Medicare Part B [employer] [address] [place] [phone] [id number] Mariana Muhammad Self - patient is the insured [address] [facility] [address] [address] [place], [place] [id number] Mariana Muhammad Self - patient is the [...]
--- OUTSIDE RECORDS SUMMARY | 2023-09-26 10:57 | XMS_ITS | Encounter Summary ---
Author Organization [facility] Address [address] [place] [address] Care Team Providers Care Design Sales Consultant Name Role Phone Elsewhere, Pcp Primary Care Provider Unavailabl e Encounter Details Date Type Department Care Team (Late st Contact Info) Description 08/21/2014 Historical Ophthalmology [facility] Adolph De Santiago M.D., Ph.D. [address] [place] [phone] Social History Tobacco Use Types Packs/Day Years Used Date Smoking Tobacco: Never Assessed Sex and Gender Information Value Date Recorded Sex Assigned at Female 01/25/2022 2:30 PM GRID OPERATOR Gender Identity Female 01/25/2022 2:30 PM GRID OPERATOR Sexual Orientation Straight 01/25/2022 2: 30 PM GRID OPERATOR documented as of this encounter Progress [...] eye or something. She was inpatient at [facility] in April [address] Marroquin for a right periorbital lesion.On 04/29/14, ENT took the patient to the operating room and performed an aspiration and culture, orbital, periorbital, and paranasal sinus contents. Pathology showed chronic inflammation with no sign of infection. The patient was transferred to [facility] yesterday (08/20/14) from [facility] in [place] for right sided hemiplegia and hemisensory loss [...] has not followed-up in 3-5 years witha consulting networking engineer. She presented to the [place] ED with progressive right sided hemisensory loss, [...] at home she has been taking Lyrica, Nicolaus, and Vicodin; however she is unsure what [...] light perception) CDM Reports - EYEGEN Id: [id number] Status: Fnl documented in this encounter Plan of Treatment Not on file documented as of this encounter Visit Diagnoses Not on filedocumented in this encounter Additional Health Concerns Infection Onset Date Last Indicated Resolved Time COVID19 Pending 12/17/2020 12/17/2020 01/06/2021 4 :54 AM GRID OPERATOR documented as of this encounter Care Teams Design Sales Consultant Relationship Specialty Start Date End Date Elsewhere, Pcp PCP - General Family Medicine 12/19/20 documented as of this encounter
--- OUTSIDE RECORDS SUMMARY | 2023-09-26 10:58 | XMS_ITS | Referral Summary ---
Author Organization [facility] Address [address] [place] [address] Care Team Providers Care Cdc Associate Name Role Phone Roddy Trevino Primary Care Provider [phone] Allergies Active Allergy Reactions Criticality Noted Date [...] (198 lb 9.6 oz) 04/10/2012 9:25 AM METALWORKING SPECIALIST Height 171 cm (5' 7.32) 04/10/2012 9:2 5 AM METALWORKING SPECIALIST Body Mass Index 30.81 04/10/2012 9:25 AM METALWORKING SPECIALIST Plan of Treatment Not on file Care Teams Cdc Associate Relationship Specialty Start Date End Date Roddy Trevino PCP - General 12/14/10
--- OUTSIDE RECORDS SUMMARY | 2023-09-26 10:58 | XMS_ITS | Clinical Summary ---
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 14 Spanish straight cath for self cath up to [...] bed. Length of need 99 months. 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 2 Each 2 08/29/19 Active Diaper,Brief, Adult,DisposableIn dications:Multiple sclerosis (HC),Neurogenic [...] mouth once daily. 90 Tablet 3 12/03/19 Active levothyroxine (SYNTHROID) 75 mcg tabletIndications: Hypothyroidism, [...] DAY 200 Each 3 01/05/20 23 Active albuterol HFA (PRO-AIR; VENTOLIN; PROVENTIL) 90 [...] once daily if needed for Constipation. Active ketoconazole 2% topical (NIZORAL) creamIndications:C andidal intertrigo Use once daily as needed for groin rash 60 g 1 07/09/19 24 Active cariprazine (Vraylar) 3 mg capsuleIndications :depression associated with bipolar disorder Take 3 mg by mouth once daily. Indications: bipolar depression 08/02/19 24 Active oxyCODONE 10 mg tablet Take 10 mg by mouth every 6 hours if needed for Pain. per nurse Aliza at [facility] was taken off Diludid and changed to Oxycodone Active oxybutynin XL (DITROPAN XL) 10 mg CR tabletIndications: Overactive bladder TAKE 1 TABLET BY MOUTH EVERY DAY 90 Tablet 09/04/19 24 Active dextroamphetamine- amphetamine (ADDERALL XR) 20 mg Extended-Release capsule Take 20 mg by mouth once daily. 08/30/19 24 Active betamethasone dipropionate 0.05 % cream APPLY TOPICALLY THREE TIMES A WEEK NEEDED FOR SKIN IRRITATION; APPLY AROUND THE OUTSIDE OF THE WOUND WITH DRESSING CHANGES ON MON,WED,Sun08/29/19 24 Active prednisoLONE acetate 1% ophthalmic (ECONOPRED [...] times daily. 80 g 09/11/19 24 Active ferrous sulfate 325 mg delayed release tabletIndications: Iron deficiency anemia, unspecified iron deficiency anemia type Take 1 Tablet (325 mg) by mouth once daily with a meal. 90 Tablet 3 09/14/19 24 Active escitalopram oxalate (LEXAPRO) 10 mg tablet Take 10 mg by mouth once daily. 09/13/19 24 Active sennosides (Senna) 8.6 mg tabletIndications: Chronic constipation TAKE 1 TABLET BY MOUTH TWO TIMES A DAY NEEDED FOR CONSTIPATION 60 Tablet 09/19/19 24 Active omeprazole (PRILOSEC) 40 mg Delayed-Release capsuleIndications :Hot flashes due to menopause TAKE 1 CAPSULE BY MOUTH EVERY DAY BEFORE A MEAL 90 Capsule 3 09/25/19 24 Active tiZANidine (ZANAFLEX) 4 mg tabletIndications: Multiple sclerosis (HC) Take 1 Tablet (4 mg) by mouth every 6 hours if needed for Muscle Spasm. 90 Tablet 3 09/24/19 24 Active oxybutynin XL (Ditropan XL) 10 mg CR tabletIndications: Overactive bladder Take 1 Tablet (10 mg) by mouth once daily. 90 Tablet 3 08/29/19 23 024 Discontinued omeprazole (PRILOSEC) 40 mg Delayed-Release capsuleIndications :Hot flashes due to menopause Take 1 Capsule (40 mg) by mouth once daily before a meal. 90 Capsule 3 08/29/19 23 024 Discontinued Milk of Magnesia 400 mg/5 mL suspensionIndicati ons:Constipation, unspecified constipation type Take 30 mL by mouth once daily if needed for Constipation (use first). 02/23/19 24 024 Discontinued(Ph armacist change per medication history (E-cancel not sent)) dulaglutide (TRULICITY) 0.75 mg/0.5 mL subcutaneous penIndications:Typ e 2 diabetes mellitus without complication, without long-term current use of insulin (HC) Inject 0.75 mg subcutaneous once weekly. 6 mL 1 03/27/19 24 024 Discontinued sennosides-docusat e (Senokot-S) (8.6-50 mg) tablet Take 1-2 Tablets by mouth once daily if needed for Constipation. 024 Discontinued(Ph armacist change per medication history (E-cancel not sent)) methocarbamoL (ROBAXIN) 500 mg tabletIndications: Muscle spasm Take 1 Tablet (500 mg) by mouth every 6 hours if needed for Muscle Spasm. 60 Tablet 1 07/09/19 24 024 Discontinued(*M edication adjustment) sennosides (SENNA) 8.6 mg tabletIndications: Chronic constipation Take 1 Tablet (8.6 mg) by mouth 2 times daily if needed for Constipation. 60 Tablet 1 07/09/19 24 024 Discontinued linaCLOtide (Linzess) 72 mcg [...] mL 09/01/19 24 024 Discontinued(*M edication adjustment) dextroamphetamine- amphetamine (ADDERALL) 20 mg tablet Take 20 mg by mouth once daily. 08/30/19 24 024 Discontinued(Du plicate therapy (E-cancel not sent)) nitrofurantoin macrocrystals/mono hydrate (MACROBID) 100 mg capsuleIndications :urinary tract infection Take 1 Capsule (100 mg) by mouth two times daily for 7 days. 14 Capsule 09/14/19 24 024 Active Problems Problem Noted Date Diagnosed Date Dizziness 09/13/2023 Acute cystitis with hematuria 09/13/2023 Severe sepsis 06/02/2023 Acute UTI 06/02/2023 Hyperlipidemia [...] loss in right eye. Was seen at [facility] by neurology and rheumatology, apparently had characteristic MRI with demyelinating lesions but numerous lumbar punctures have not demonstrated CSF protein abnormalities. Has been seen at [facility] neurology clinic. Currently following with Dr. Shepherd at [facility]. Started on Tysabri (monoclonal baldo) infusions in 2007. Continues to have progressive symptoms. 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 12/06/15--Neurologist is Dr. Ab Whittington- location [facility] ext [phone]. Currently being treated with Aubagio. Laurence Mujica PA-C, Family Medicine.....................12/06/2015 3:22 PM UARS (upper airway resistance syndrome) Resolved Problems Problem Noted Date Diagnosed Date Resolved Date Dizziness 09/13/2023 09/14/2023 Blood clot in bladder 02/17/20232023 Suprapubic catheter [...] 02/25/2021 Overview: Overview: Created by Conversion [facility] Annotation: May 09 2011 2:19PM - Minerva Huber: complication of sinus surgery Replacement Utility updated for latest IMO load Uncontrolled type 2 diabetes mellitus with hyperglycemia 02/25/2021 04/06/2021 Anxiety and depression 02/20/202104/27 Insulin dependent type 2 diabetes mellitus 02/20/2021 12/02/2022 Controlled substance agreement signed 07/06/2020 12/19/2021 Controlled substance agreement broken 02/12/2020 07/06/2020 Perimenopausal 02/08/2020 04/28/2023 Hypersomnolence 02/08/2020 02/20/2021 Hypersomnolence disorder, wi medical condition, persistent, moderate 11/05/2019 04/28/19 24 [...] Encounters Date Type Department Care Team Description 09/24/2023 11:00 AM CDT Home Care Visit Count Includes [facility] [address] [place] [address] Ivette Martinez RN SN - OASIS DISCHARGE 09/22/2023 Refill [facility] [address] [place] [address] Laurence Mujica PA Refill Request (Omeprazole) 09/20/2023 2:30 PM CDT Home Care Visit Count Includes [facility] [address] [place] [phone] Ivette Martinez, CALLUM SN - HOME VISIT 09/18/2023 11:30 AM CDT Nurse/Clinic Staff Only [address] [address] Nurse/Clinic Staff Only (Suprapubic) 09/18/2023 Travel 09/17/2023 10:30 AM CDT Home Care Visit [place] [id number] [place] [phone] Ivette Martinez, CALLUM SN - HOME VISIT 09/17/2023 Refill [facility] [address] [place] [address] Laurence Mujica PA Refill Request (Senna) 09/17/2023 Patient Outreach [facility] [address] [place] [address] Felicita Dickinson, RN Primary RN Care Management; [facility] 09/14/2023 11:30 AM CDT Home Care Visit Count Includes [facility] [address] [place] [phone] Socorro Barajas LPN INVENTORY TAKER - MISSED VISIT 09/14/2023 Home Care Visit Count Includes [facility] [address] [place] [phone] Ivette Martinez, MARKETING TECHNOLOGY SPECIALIST NOTE 09/13/2023 8:49 PM CDT - 09/14/2023 12:20 PM CDT Emergency [facility] [address] [place] [address] Cesario Mcmullen MD Du, William, MD Nguyen, Thao Nguyen Le, NP Altered mental status, unspecified altered mental status type (Primary Dx); Vertigo; History of multiple sclerosis (HC); Acute UTI Discharge Disposition: Home Self Care 09/13/2023 Travel 09/12/2023 Telephone [facility] [address] [place] [address] Nga White MD Appointment Request (NEEDS CATHETER REPLACED) 09/11/2023 4:10 PM CDT Orders Only [facility] [address] [place] [address] [facility] 09/11/2023 1:10 PM CDT Office Visit [facility] [address] [place] [address] Laurence Mujica PA Derm Problem (Mole in groin area she wants removed-also told she has a hematoma growing in her left eye) 09/11/2023 10:27 AM CDT - 09/11/2023 11:59 PM CDT Hospital Encounter [facility] [address] [place] [address] Nga White MD Neurogenic bladder 09/11/2023 Travel 09/10/2023 8:30 AM CDT Home Care Visit [place] [id number] [place] [address] Poornima Billingsley, CALLUM SN - HOME VISIT 09/07/2023 10:00 AM CDT Home Care Visit Count Includes [facility] [address] [place] [address] Josi Sosa, RN SN - HOME VISIT 09/05/2023 Home Care Visit Count Includes [facility] [address] [place] [address], [place] [address] Ivette Martinez, CALLUM SN - MISSED VISIT 09/05/2023 Patient Outreach [address] [phone] Laurence Mujica PA Appointment (Cath Change today ) 09/03/2023 4:30 AM CDT Home Care Visit Count Includes [facility] [address] [place] [phone] Torie Shea RN SN - OASIS RECERTIFICATION 09/03/2023 Plan of Care Documentation Count Includes [facility] [address] [place] [phone] 09/03/2023 Refill [facility] [address] [place] [address] Laurence Mujica PA Refill Request (Oxybutynin Xl) 08/31/2023 9:30 AM CDT Home Care Visit Count Includes [facility] [address] [place] [phone] Poornima Billingsley, RN SN - HOME VISIT 08/30/2023 Home Care Visit Count Includes [facility] [address] [place] [phone] Luisa Velasquez RN CARE COORDINATION 08/30/2023 Refill [facility] [address] [place] [address] Laurence Mujica PA Refill Request (Trulicity) 08/30/2023 Home Care Visit [address] [phone] Luisa Velasquez, CALLUM SN - TELEHEALTH VISIT 08/27/2023 2:15 PM CDT Home Care Visit Count Includes [facility] [address] [place] [address] Ivette Martinez, CALLUM SN - HOME VISIT 08/24/2023 11:30 AM CDT Home Care Visit Count Includes [facility] [address] [place] [address] Socorro Barajas LPN INVENTORY TAKER - HOME VISIT 08/20/2023 12:30 PM CDT Home Care Visit Count Includes [facility] [address] [place] [phone] Torie Shea RN SN - HOME VISIT 08/17/2023 1:30 PM CDT Home Care Visit Count Includes [facility] [address] [place] [phone] Socorro Barajas LPN INVENTORY TAKER - MISSED VISIT 08/17/2023 Home Care Visit Count Includes [facility] [address] [place] [phone] Luisa Velasquez, CALLUM CARE COORDINATION 08/16/2023 11:00 AM CDT Office Visit [address] [address] Nga White MD Non-billable 08/16/2023 10:30 AM CDT Nurse/Clinic Staff Only [address] [address] Nurse/Clinic Staff Only (Suprapubic catheter exchange) 08/16/2023 Travel 08/16/2023 Home Care Visit Count Includes [facility] [address] [place] [address], [place] [address] Luisa Velasquez, CALLUM SN - TELEHEALTH VISIT 08/13/2023 12:00 PM CDT Home Care Visit Count Includes [facility] [address] [place] [phone] Socorro Barajas LPN INVENTORY TAKER - HOME VISIT 08/10/2023 12:00 PM CDT Home Care Visit Count Includes [facility] [address] [place] [address] Ivette Martinez, CALLUM SN - HOME VISIT 08/10/2023 Telephone [facility] [address] [place] [address] Laurence Mujica, PA Questions 08/10/2023 Home Care Visit Count Includes [facility] [address] [place] [phone] Luisa Velasquez, CALLUM CARE COORDINATION 08/07/2023 10:00 AM CDT Home Care Visit Count Includes [facility] [address] [place] [phone] Denisse Cueto LISW CORE DRILLER - INITIAL ASSESSMENT 08/07/2023 Home Care Visit Count Includes [facility] [address] [place] [phone] Luisa Velasquez, CALLUM SN - TELEHEALTH VISIT 08/06/2023 1:30 PM CDT Home Care Visit Count Includes [facility] [address] [place] [phone] Socorro Barajas LPN INVENTORY TAKER - HOME VISIT 08/04/2023 Home Care Visit Count Includes [facility] [address] [place] [phone] Luisa Velasquez, CALLUM SN - MISSED VISIT 08/03/2023 12:40 PM CDT - 08/03/2023 3:23 PM CDT Emergency [facility] [address] [place] [address] Lane Barahona PA Open wound of left chest wall, subsequent encounter (Primary Dx); Chronic suprapubic catheter (HC) Discharge Disposition: Home Self Care 08/03/2023 Home Care Visit Count Includes [facility] [address] [place] [phone] Denisse Cueto LISW CORE DRILLER - CASE COMMUNICATION 08/03/2023 Orders Only [facility] [address] [place] [address] Laurence Mujica PA <No scans attached> 08/03/2023 Travel 08/03/2023 Home Care Visit Count Includes [facility] [address] [place] [address] Luisa Velasquez, RN CARE COORDINATION 08/02/2023 4:30 PM CDT Home Care Visit Count Includes [facility] [address] [place] [address] Josi Sosa, RN SN - PRN HOME VISIT 08/02/2023 10:30 AM CDT - 08/02/2023 11:59 PM CDT Hospital Encounter [facility] [address] [place] [address] Left breast abscess 08/02/2023 Telephone Count Includes [facility] [address] [place] [address] Josi Sosa, apartment coordinator (Patient sent to ED.) 08/02/2023 Home Care Visit Count Includes [facility] [address] [place] [address] Luisa Velasquez, CALLUM CARE COORDINATION 08/02/2023 Travel 08/01/2023 Home Care Visit Count Includes [facility] [address] [place] [phone] Luisa Velasquez, CALLUM SN - TELEHEALTH VISIT 07/30/2023 3:30 PM CDT Home Care Visit Count Includes [facility] [address] [place] [phone] Josi Sosa, RN SN - HOME VISIT 07/30/2023 Home Care Visit Count Includes [facility] [address] [place] [address] Luisa Velasquez, CALLUM CARE COORDINATION 07/28/2023 Refill [facility] [address] [place] [address] Laurence Mujica PA Refill Request (Linzess) 07/27/2023 1:00 PM CDT Home Care Visit Count Includes [facility] [address] [place] [phone] Ivette Martinez, RN SN - HOME VISIT 07/27/2023 Home Care Visit Count Includes [facility] [address] [place] [phone] Luisa Velasquez, CALLUM CARE COORDINATION 07/27/2023 Telephone Count Includes [facility] [address] [place] [address] Luisa Velasquez, apartment coordinator 07/26/2023 Telephone [facility] [address] [place] [address] Laurence Mujica PA Questions (Catheter ) 07/26/2023 Home Care Visit Count Includes [facility] [address] [place] [phone] Luisa Velasquez, CALLUM CARE COORDINATION 07/23/2023 12:00 PM CDT Home Care Visit Count Includes [facility] [address] [place] [phone] Radha Bob, CALLUM SN - LONG VISIT (>90 MINUTES) 07/23/2023 Home Care Visit Count Includes [facility] [address] [place] [phone] Luisa Velasquez, CALLUM CARE COORDINATION 07/20/2023 12:00 PM CDT Home Care Visit Count Includes [facility] [address] [place] [phone] Socorro Barajas LPN LPN - HOME VISIT 07/19/2023 Telephone Count Includes [facility] [address], [place] [address] Socorro Barajas LPN Breast Problem (Wound on (L) breast) 07/16/2023 12:00 PM CDT Home Care Visit Count Includes [facility] [address] [place] [address] Socorro Barajas LPN INVENTORY TAKER - HOME VISIT 07/13/2023 1:00 PM CDT Home Care Visit Count Includes [facility] [address] [place] [address] Orlando Escobar, RN SN - WOUND HOME VISIT 07/12/2023 Transcribe Orders [facility] [address] [place] [address] Sole oNel MD 07/09/2023 12:50 PM CDT Office Visit [facility] [address] [place] [address] Laurence Mujica PA Derm Problem (Check breast-has a 'hole with yellow drainage'-also needs cream for stomach) 07/09/2023 9:00 AM CDT Home Care Visit Count Includes [facility] [address] [place] [phone] Radha Bob, CALLUM SN - HOME VISIT 07/09/2023 Orders Only [facility] [address] [place] [address] Laurence Mujica PA <No scans attached> 07/08/2023 Travel 07/07/2023 10:30 AM CDT Home Care Visit Count Includes [facility] [address] [place] [phone] Radha Bob, CALLUM SN - LONG VISIT (>90 MINUTES) 07/06/2023 1:00 PM CDT Home Care Visit Count Includes [facility] [address] [place] [phone] Ivette Martinez, CALLUM SN - WOUND HOME VISIT 07/06/2023 Home Care Visit Count Includes [facility] [address] [place] [phone] Maria Victoria Mcintosh, PT PT - DISCIPLINE DISCHARGE 07/06/2023 Orders Only [facility] [address] [place] [address] Laurence Mujica PA <No scans attached> 07/06/2023 Home Care Visit Count Includes [facility] [address] [place] [address], [place] [address] Maria Victoria Mcintosh, PT CARE COORDINATION 07/05/2023 Home Care Visit Count Includes [facility] [address] [place] [address], [place] [address] Maria Victoria Mcintosh, PT PT - MISSED VISIT 07/04/2023 8:00 AM CDT Home Care Visit Count Includes [facility] [address] [place] [address], [place] [address] Orlando Escobar, RN SN - OASIS RECERTIFICATION 07/04/2023 Plan of Care Documentation Count Includes [facility] [address] [place] [address], [place] [address] 07/03/2023 12:00 PM CDT Home Care Visit Count Includes [facility] [address] [place] [address], [place] [address] Luisa Burnett, PT PT - HOME VISIT 07/02/2023 8:30 AM CDT Home Care Visit Count Includes [facility] [address] [place] [address], [place] [address] Radha Bob, RN SN - WOUND HOME VISIT 07/01/2023 8:30 AM CDT Home Care Visit [place] [address] [place] [address], [place] [address] Radha Bob, RN SN - WOUND HOME VISIT 06/30/2023 12:00 PM CDT Home Care Visit Count Includes [facility] [address] [place] [address], [place] [address] Radha Bob, RN SN - WOUND HOME VISIT 06/29/2023 9:00 AM CDT Home Care Visit Count Includes [facility] [address] [place] [address], [place] [address] Orlando Escobar, RN SN - WOUND HOME VISIT 06/28/2023 10:15 AM CDT Home Care Visit Count Includes [facility] [address] [place] [address] Luisa Burnett, PT PT - WOUND HOME VISIT 06/28/2023 Telephone Count Includes [facility] [address] [place] [address] Luisa Burnett, PT Home Care 06/27/2023 12:30 PM CDT Home Care Visit Count Includes [facility] [address] [place] [address] Orlando Escobar RN SN - WOUND HOME VISIT 06/26/2023 10:15 AM CDT Home Care Visit Count Includes [facility] [address] [place] [address] Luisa Burnett, PT PT - WOUND HOME VISIT from Last 3 Months Immunizations Name Administration Dates Next Due COVID-19 vaccine ([employer] NT[employer] 30mcg/0.3mL) 12YO+ BIVALENT PF, MDV 11/24/2021 COVID-19 vaccine ([employer] NT[employer] 30mcg/0.3mL) PF, MDV 12/15/2020,09/27/2020 Influenza, IIV3 [...] of Communication with Friends and Fami ly 4 09/14/2023 Financial Resource Strain Answer Date R ecorded Difficulty of Paying Living Expenses 2 09/14/2023 Difficulty of Paying Living Expenses 1 09/14/2023 Food Insecurity Answer Date Recorded Worried About Running Out of Food in the Last Ye ar 1 09/14/2023 Transportation Needs Answer Date Record ed Lack [...] Reading Time Taken Comments Blood Pressure 96/66 09/24/2023 11:18 AM CDT Pulse 88 09/24/2023 11:18 AM CDT Temperature 36.2 ??C (97.1 ??F) 09/24/2023 11:18 AM C DT Respiratory Rate 16 09/24/2023 11:18 AM CDT Oxygen Saturation 99% 09/24/2023 11:18 AM CDT Inhaled Oxygen Concentration - - Weight 85.7 kg (189 lb) 09/13/2023 8:52 PM CDT Height 172.7 cm (5' 8) 09/13/2023 8:52 PM CDT Body Mass Index 28.74 09/13/2023 8:52 PM CDT Plan of Treatment Upcoming Encounters Date Type Department Care Team (Late st Contact Info) Description 10/04/2023 3:10 PM CDT Office Visit [facility] [address] [address] [place] [address] Laurence Mujica PA [address] [place] [address] 10/12/2023 10:30 AM CDT Nurse/Clinic Staff Only [facility] [address] [facility] [place] [address] Health Maintenance Due Date Last Done Comments [...] Procedure Name Priority Date/Time Associated Diagnosis Comments SCAN-CARDIAC STRIP 09/14/2023 7: 54 AM CDT GLUCOSE METER Routine 09/14/2023 6:59 AM CDT BASIC METABOLIC PANEL Early AM 09/14/2023 6:28 AM CDT MAGNESIUM Early AM 09/14/2023 6:28 AM CDT CBC W PLT NO DIFF Early AM 09/14/2023 6:2 8 AM CDT SCAN-CARDIAC STRIP 09/14/2023 2: 55 AM CDT GLUCOSE METER Routine 09/13/2023 10:[address] HEAD BRAIN WO STAT 09/13/2023 10:4 3 PM CDT URINALYSIS MICROSCOPIC STAT 09/13/2023 10:03 PM CDT DRUG SCREEN RAPID URINE INHOUSE STAT 09/13/2023 10:03 PM CDT URINE CULTURE Today 09/13/2023 10:03 PM CDT UA W/ SEDIMENT EXAM REFLEXED PER CRITERIA STAT 09/13/2023 10:03 PM CDT HEPATIC FUNCTION PANEL STAT 09/13/2023 9:21 PM CDT ETHANOL SERUM OR PLASMA STAT 09/13/2023 9:21 PM CDT BASIC METABOLIC PANEL STAT 09/13/2023 9:21 PM CDT CBC WITH AUTO DIFFERENTIAL STAT 09/13/2023 9:20 PM CDT AMMONIA STAT 09/13/2023 9:20 PM CDT CBC WITH AUTO DIFFERENTIAL STAT 09/13/2023 9:20 PM CDT GLUCOSE METER Routine 09/13/2023 8:58 PM CDT URINE ALBUMIN TO CREATININE RATIO, RANDOM Routine 09/11/2023 9:00 PM CDT Type 2 diabetes mellitus without complication, without long-term current use of insulin (HC) IRON PLUS IRON BINDING CAP Add On 09/11/2023 2:24 PM CDT Anemia of unknown etiology FERRITIN Add On 09/11/2023 2:24 PM CDT Anemia of unknown etiology CBC WITH AUTO DIFFERENTIAL Routine 09/11/2023 2:24 [...] 08/02/2023 11:31 AM CDT Left breast abscess XR MAMMO KAYLEE BILAT SCREEN Routine 06/07/2022 9:19 AM CDT Visit for screening mammogram ANTI HIV 1/2 MALOU 09/20/2021 11:11 PM CDT ANTI HCV MALOU 09/20/2021 11:11 PM CDT from Last 3 Months or Most Recently Relevant to Health Maintenance Results * SCAN-CARDIAC STRIP (09/14/2023 7:54 AM CDT) Scanner OTHER * GLUCOSE METER (09/14/2023 6:59 AM CDT) Only the most recent of3 resultswithin the time period is included. [facility] Signature GLUCOSE METER 84 65 - 100 mg/dL 09/14/2023 7:54 AM CDT [facility] Blood BLOOD SPECIMEN / Unknown 09/14/2023 6:59 AM CDT 09/14/2023 7:54 AM CDT Clark Zapien MD CHEMISTRY [facility] [address] [place] [address] * (ABNORMAL) CBC W PLT NO DIFF (09/14/2023 6:28 AM CDT) WHITE BLOOD COUNT 4.6 4.5 - 11.0 thou/cu mm 09/14/2023 6:42 AM CDT [facility] RED BLOOD COUNT 4.19 4.00 - 5.20 mil/cu mm 09/14/2023 6:42 AM T [facility] HEMOGLOBIN 10.8(L) 12.0 - 16.0 g/dL 09/14/2023 6:42 AM T [facility] HEMATOCRIT 33.8 33.0 - 51.0 % 09/14/2023 6:42 AM T [facility] MCV 81 80 - 100 fL 09/14/2023 6:42 AM T [facility] MCH 25.8(L) 26.0 - 34.0 pg 09/14/2023 6:42 AM T [facility] MCHC 32.0 32.0 - 36.0 g/dL 09/14/2023 6:42 AM [facility] RDW 18.7(H) 11.5 - 15.5 % 09/14/2023 6:42 AM T [facility] PLATELET COUNT 207 140 - 440 thou/cu mm 09/14/2023 6:42 AM T [facility] MPV 9.8 6.5 - 11.0 fL 09/14/2023 6:42 AM [facility] Blood BLOOD SPECIMEN / Unknown Butterfly / Unknown 09/14/2023 6:28 AM CDT 09/14/2023 6:37 AM CDT Clark Zapien MD HEMATOLOGY [facility] [address] [place] [address] * MAGNESIUM (09/14/2023 6:28 AM CDT) MAGNESIUM 1.7 1.6 - 2.6 mg/dL 09/14/2023 7:03 AM [facility] Blood BLOOD SPECIMEN / Unknown Butterfly / Unknown 09/14/2023 6:28 AM CDT 09/14/2023 6:37 AM CDT Clark Zapien MD CHEMISTRY [facility] [address] [place] [address] * (ABNORMAL) BASIC METABOLIC PANEL (09/14/2023 6:28 AM CDT) Only the most recent of2 resultswithin the time period is included. SODIUM 142 136 - 145 mmol/L 09/14/2023 7:03 AM [facility] POTASSIUM 3.6 3.5 - 5.1 mmol/L 09/14/2023 7:03 AM [facility] CHLORIDE 103 98 - 107 mmol/L 09/14/2023 7:03 AM [facility] CO2,TOTAL 29 22 - 29 mmol/L 09/14/2023 7:03 AM [facility] ANION GAP 10 5 - 18 09/14/2023 7:03 AM [facility] GLUCOSE 89 70 - 99 mg/dL 09/14/2023 7:03 AM [facility] CALCIUM 9.6 8.6 - 10.0 mg/dL 09/14/2023 7:03 AM [facility] BUN 4(L) 6 - 20 mg/dL 09/14/2023 7:03 AM [facility] CREATININE 0.49(L) 0.50 - 0.90 mg/dL 09/14/2023 7:03 AM [facility] BUN/CREAT RATIO 8(L) 10 - 20 7:03 AM [facility] eGFR >90 >90 mL/min/1.7 3m2 09/14/2023 7:03 AM [facility] Comment:As of 2021, eG FR is calculated by the CKD-EPI creatinine equation without race adjustment. ??eGFR can be influenced by muscle mass, exercise, and diet. ??The reported eGFR is an estimation only and is only applicable if the renal function is stable. Blood BLOOD SPECIMEN / Unknown Butterfly / Unknown 09/14/2023 6:28 AM CDT 09/14/2023 6:37 AM CDT Clark Zapien MD CHEMISTRY [facility] [address] [place] [address] * SCAN-CARDIAC STRIP (09/14/2023 2:55 AM CDT) Scanner OTHER * CT HEAD BRAIN WO (09/13/2023 10:43 PM CDT) Anatomical Region Laterality Modality HEAD, BRAIN Computed Tomogra phy 09/13/2023 11:2 2 PM CDT Impressions 09/13/2023 11:22 PM CDT 1. No evidence of an acute intracranial abnormality. 2. 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 2. Mild global cerebral atrophy. Please note that all CT scans at this facility use dose modulation, iterative reconstruction, and/or weight-based dosing when appropriate to reduce radiation dose to as low as reasonably achievable. Dictated by Aydin Adams MD @ 09/13/2023 11:22:03 PM (Electronically Signed) Narrative 09/13/2023 11:22 PM CDT For Patients: ??As a result of the 21st Century Cures Act, medical imaging exams and procedure reports are released immediately into your electronic medical record. ??You may view this report before your referring provider. ??If you have questions, please contact your health care provider. INDICATION: Headache, altered mental status. TECHNIQUE: CT head without contrast. COMPARISON: Brain MRI 02/19/2023. FINDINGS: Brain parenchyma, CSF spaces, and extra-axial spaces: Mild global brain parenchymal volume loss. Areas of mild hypoattenuation within the bilateral periventricular white matter.The forrest-white differentiation is normal. ??No sign of mass, hemorrhage, or midline shift. No hydrocephalus. No extra-axial fluid collection. ?? Skull base and calvarium: Chronic complete opacification of the right frontal sinus and anterior aspect of the right ethmoid air cells. The mastoid air cells are clear. Thinning of the left ocular lens. No skull fracture. Degenerative changes of the right temporomandibular joints Procedure Note Aydin Adams MD - 09/13/2023 For Patients: As a result of the Cures Act, medical imagingexams and procedure reports are released immediately into your electronicmedical record. You may view this report before your referring provider.If you have questions, please contact your health care provider. INDICATION: Headache, altered mental status. TECHNIQUE: CT head without contrast. COMPARISON: Brain MRI 02/19/2023. FINDINGS: Brain parenchyma, CSF spaces, and extra-axial spaces: Mild global brainparenchymal volume loss. Areas of mild hypoattenuation within thebilateral periventricular white matter.The forrest-white differentiation isnormal. No sign of mass, hemorrhage, or midline shift. No hydrocephalus.No extra-axial fluid collection. Skull base and calvarium: Chronic complete opacification of the rightfrontal sinus and anterior aspect of the right ethmoid air cells. Themastoid air cells are clear. Thinning of the left ocular lens. No skullfracture. Degenerative changes of the right temporomandibular joints IMPRESSION: 1. No evidence of an acute intracranial abnormality. 2. Areas of mild hypoattenuation within the bilateral periventricularwhite matter, compatible with the patient`s known demyelinating disorder. 2. Mild global cerebral atrophy. Please note that all CT scans at this facility use dose modulation,iterative reconstruction, and/or weight-based dosing when appropriate toreduce radiation dose to as low as reasonably achievable. Dictated by Aydin Adams MD @ 09/13/2023 11:22:03 PM (Electronically Signed) Cesario Mcmullen MD CT * (ABNORMAL) DRUG SCREEN RAPID URINE INHOUSE (09/13/2023 10:03 PM CDT) THC METABOLITES,ZIYAD L Non-negative , consider further testing if indicated(A) Not Detected 09/13/2023 10:31 PM [facility] PCP,QUAL Not Detected Not Detected 09/13/2023 10:31 PM [facility] COCAINE,QUAL Not Detected Not Detected 09/13/2023 10:31 PM [facility] METHAMPHETAMINE , QUALITATIVE Not Detected Not Detected 09/13/2023 10:31 PM [facility] OPIATES,QUAL Not Detected Not Detected 09/13/2023 10:31 PM [facility] AMPHETAMINE, QUALITATIVE Not Detected Not Detected 09/13/2023 10:31 PM [facility] BENZODIAZEPINES ,QUAL Not Detected Not Detected 09/13/2023 10:31 PM [facility] TRICYCLICS,QUAL Not Detected Not Detected 09/13/2023 10:31 PM [facility] METHADONE, QUALITATIVE Not Detected Not Detected 09/13/2023 10:31 PM [facility] BARBITURATES,QU AL Not Detected Not Detected 09/13/2023 10:31 PM [facility] OXYCODONE, QUALITATIVE Non-negative , consider further testing if indicated(A) Not Detected 09/13/2023 10:31 PM [facility] BUPRENORPHINE, QUALITATIVE Not Detected Not Detected 09/13/2023 10:31 PM [facility] Urine URINE SPECIMEN / Unknown Non-Blood / Unknown 09/13/2023 10:03 PM CDT 09/13/2023 10:09 PM [facility] - 09/13/2023 10:31 PM T Please Note: ?? This is a screening test only, all results are unconfirmed and should be used for medical purposes only. ??Unconfirmed results must not be used for non-medical purposes (e.g., employment testing, legal testing). ??Suggest analyte specific confirmation for all non-negative results. ??Specimens will be held for 24 hours if additional testing is needed. ?? The following threshold concentrations are used for this analysis: ? Drug ? Screening Threshold ? Buprenorphine ? 10 ng/mL PCP ? 25 ng/mL ?? THC Metabolites ? 50 ng/mL *Opiates ? 100 ng/mL Oxycodone ?100 ng/mL Cocaine ?150 ng/mL Benzodiazepines ?150 ng/mL ?? Methadone ?200 ng/mL ?? Barbiturates ? 200 ng/mL Tricyclic Antidepressants ?300 ng/mL ?? Amphetamines ? 500 ng/mL ?? Methamphetamines ? 500 ng/mL ?*Includes related compounds: ? Codeine ?50 ng/mL ? Heroin ?100 ng/mL ? Morphine ?100 ng/mL ? Hydrocodone ? 400 ng/mL ? Hydromorphone ? 800 ng/mL ?Venlafaxine (Effexor) is a known cross reactant in the PCP ?assay. ??If clinically indicated, order PCP confirmation. Cesario Mcmullen MD URINE Performing Organization Address [facility] Co de Phone Number [facility] [address] [place] [address] * (ABNORMAL) URINALYSIS MICROSCOPIC (09/13/2023 10:03 PM CDT) Only the most recent of2 resultswithin the time period is included. RBC 3-5(A) 0-2, None Seen /HPF 09/13/2023 10:30 PM CDT [facility] WBC 11-25(A) 0-2, 3-5, None Seen /HPF 09/13/2023 10:30 PM CDT [facility] BACTERIA Many(A) None Seen, Rare, Few Bacteria/ HPF 09/13/2023 10:30 PM CDT [facility] EPITHELIAL CELLS Few None Seen, Few Epi/HPF 09/13/2023 10:30 PM CDT [facility] AMORPHOUS Present(A) (none) 09/13/2023 10:30 PM CDT [facility] Urine URINE SPECIMEN / Unknown Non-Blood / Unknown 09/13/2023 10:03 PM CDT 09/13/2023 10:09 PM CDT Cesario Mcmullen MD URINE Performing Organization Address [facility]/ZIP Co de Phone Number [facility] [address] [place] [address] * (ABNORMAL) URINE CULTURE (09/13/2023 10:03 PM CDT) CULTURE RESULT(A) 09/15/2023 2:03 PM CDT [facility] CULTURE >100,000 CFU/mL Klebsiella oxytoca 09/15/2023 2:03 PM CDT [facility] CULTURE >100,000 CFU/mL Enterobacter cloacae complex 09/15/2023 2:03 PM CDT [facility] Comment: May develop resistance during prolonged therapy with 3rd-generation cephalosporins as a result of derepression of AmpC beta-lactamase. ??Therefore, isolates that are initially susceptible may become resistant within 3 to 4 days after initiation of therapy. ??Testing repeat isolates may be warranted. Oral cephalosporins are also not recommended. CULTURE 50,000-100,000 CFU/mL Enterococcus faecalis 09/15/2023 2:03 PM CDT [facility] Urine URINE SPECIMEN / Unknown Non-Blood / Unknown 09/13/2023 10:03 PM CDT 09/13/2023 10:09 PM CDT Narrative [facility] - 09/15/2023 2:03 PM CDT Specimen appears contaminated. No further workup pending. Cesario Mcmullen MD MICROBIOLOGY [facility] [address] [place] [address], * (ABNORMAL) UA W/ SEDIMENT EXAM REFLEXED PER CRITERIA (09/13/2023 10:03 PM CDT) Only the most recent of2 resultswithin the time period is included. COLOR Yellow Yellow Color 09/13/2023 10:12 PM [facility] CLARITY Clear Clear Clarity 09/13/2023 10:12 PM [facility] SPECIFIC GRAVITY,URINE 1.010 1.010, 1.015, 1.020, 1.025 09/13/2023 10:12 PM [facility] PH,URINE 7.0 6.0, 7.0, 8.0, 5.5, 6.5, 7.5, 8.5 09/13/2023 10:12 PM [facility] UROBILINOGEN, QUALITATIVE Normal Normal EU/dl 09/13/2023 10:12 PM [facility] PROTEIN, URINE Negative Negative mg/dL 09/13/2023 10:12 PM CDT [facility] GLUCOSE, URINE Negative Negative mg/dL 09/13/2023 10:12 PM T [facility] KETONES,URINE Negative Negative mg/dL 09/13/2023 10:12 PM T [facility] BILIRUBIN,URI NE Negative Negative 09/13/2023 10:12 PM CDT [facility] OCCULT BLOOD,URINE Moderate(A) Negative 09/13/2023 10:12 PM CDT [facility] NITRITE Negative Negative 09/13/2023 10:12 PM T [facility] LEUKOCYTE ESTERASE Large(A) Negative 09/13/2023 10:12 PM T [facility] Urine URINE SPECIMEN / Unknown Non-Blood / Unknown 09/13/2023 10:03 PM CDT 09/13/2023 10:09 PM CDT Cesario Mcmullen MD URINE Performing Organization Address City/[facility]/ZIP Co de Phone Number [facility] [address] [place], [place] [id number] * ETHANOL SERUM OR PLASMA (09/13/2023 9:21 PM CDT) Pathologist [facility] ETHANOL <0.010 <0.010 g/dL 09/13/2023 9:46 PM CDT [facility] Blood BLOOD SPECIMEN / Unknown Butterfly / Unknown 09/13/2023 9:21 PM CDT 09/13/2023 9:25 PM CDT Cesario Mcmullen MD CHEMISTRY Performing Organization Address City/[facility]/ZIP Co de Phone Number [facility] [address], [place] [phone] * (ABNORMAL) HEPATIC FUNCTION PANEL (09/13/2023 9:21 PM CDT) ALBUMIN 4.3 4.0 - 4.9 g/dL 09/13/2023 9:45 PM [facility] PROTEIN,TOTAL 7.3 6.0 - 8.0 g/dL 09/13/2023 9:45 PM T [facility] BILIRUBIN,TOTAL 0.3 0.0 - 1.2 mg/dL 09/13/2023 9:45 PM T [facility] BILIRUBIN,DIRECT <0.2 0.0 - 0.3 mg/dL 09/13/2023 9:45 PM T [facility] BILIRUBIN,INDIRE CT 09/13/2023 9:45 PM [facility] Comment:Unable to calculate, Direct Bili <0.2 ALK PHOSPHATASE 154(H) 35 - 104 IU/L 09/13/2023 9:45 PM [facility] ALT (SGPT) 20 10 - 35 IU/L 09/13/2023 9:45 PM [facility] AST (SGOT) 25 10 - 35 IU/L 09/13/2023 9:45 PM [facility] Blood BLOOD SPECIMEN / Unknown Butterfly / Unknown 09/13/2023 9:21 PM CDT 09/13/2023 9:25 PM CDT Cesario Mcmullen MD CHEMISTRY [facility] [address] [place], [place] [id number] * (ABNORMAL) CBC WITH AUTO DIFFERENTIAL (09/13/2023 9:20 PM CDT) Only the most recent of3 resultswithin the time period is included. WHITE BLOOD COUNT 6.6 4.5 - 11.0 thou/cu mm 09/13/2023 9:28 PM [facility] RED BLOOD COUNT 4.37 4.00 - 5.20 mil/cu mm 09/13/2023 9:28 PM [facility] HEMOGLOBIN 10.7(L) 12.0 - 16.0 g/dL 09/13/2023 9:28 PM [facility] HEMATOCRIT 34.3 33.0 - 51.0 % 09/13/2023 9:28 PM [facility] MCV 79(L) 80 - 100 fL 09/13/2023 9:28 PM [facility] MCH 24.5(L) 26.0 - 34.0 pg 09/13/2023 9:28 PM [facility] MCHC 31.2(L) 32.0 - 36.0 g/dL 09/13/2023 9:28 PM [facility] RDW 18.6(H) 11.5 - 15.5 % 09/13/2023 9:28 PM [facility] PLATELET COUNT 245 140 - 440 thou/cu mm 09/13/2023 9:28 PM [facility] MPV 10.1 6.5 - 11.0 fL 09/13/2023 9:28 PM [facility] % NEUT 68.3 % 09/13/2023 9:28 PM [facility] % LYMPH 16.3 % 09/13/2023 9:28 PM [facility] % MONO 9.9 % 09/13/2023 9:28 PM [facility] % EOS 5.2 % 09/13/2023 9:28 PM [facility] % BASO 0.3 % 09/13/2023 9:28 PM [facility] ABSOLUTE NEUTROPHILS 4.5 1.7 - 7.0 thou/cu mm 09/13/2023 9:28 PM [facility] ABSOLUTE LYMPHOCYTES 1.1 0.9 - 2.9 thou/cu mm 09/13/2023 9:28 PM [facility] ABSOLUTE MONOCYTES 0.7 <0.9 thou/cu mm 09/13/2023 9:28 PM [facility] ABSOLUTE EOSINOPHILS 0.3 <0.5 thou/cu mm 09/13/2023 9:28 PM [facility] ABSOLUTE BASOPHILS 0.0 <0.3 thou/cu mm 09/13/2023 9:28 PM [facility] Blood BLOOD SPECIMEN / Unknown Butterfly / Unknown 09/13/2023 9:20 PM CDT 09/13/2023 9:25 PM CDT Cesario Mcmullen MD HEMATOLOGY Performing Organization Address [facility] de Phone Number [facility] [address] [place] [address] * (ABNORMAL) AMMONIA (09/13/2023 9:20 PM CDT) AMMONIA 15(L) 16 - 60 umol/L 09/13/2023 9:46 PM CDT [facility] Blood BLOOD SPECIMEN / Unknown Butterfly / Unknown 09/13/2023 9:20 PM CDT 09/13/2023 9:25 PM CDT Narrative [facility] - 09/13/2023 9:46 PM CDT 1. ??Sulfasalazine and its metabolite Sulfapyridine at therapeutic concentrations may lead to falsely low results. 2. ??Temozolomide and its metabolite MTIC may lead to falsely elevated results, and its metabolite AIC may lead to falsely low results. Cesario Mcmullen MD CHEMISTRY Performing Organization Address [facility] de Phone Number [facility] [address] [place] [address] * (ABNORMAL) URINE ALBUMIN TO CREATININE RATIO, RANDOM (09/11/2023 9:00 PM CDT) ALB RAND URINE 235.0 mg/L 09/13/2023 1:07 AM CDT [facility] CREATININE,URIN E 1.57 g/L 09/13/2023 1:07 AM CDT [facility] ALBUMIN TO CREATININE RATIO,RAND UR 149.7(H) <30.0 mg/g creat 09/13/2023 1:07 AM CDT [facility] Urine URINE SPECIMEN / Unknown Non-Blood / Unknown 09/11/2023 9:00 PM CDT 09/12/2023 12:46 PM CDT Narrative [facility] - 09/13/2023 1:07 AM CDT If Albumin to Creatinine Ratio is elevated, consider the following: ? Elevations seen with incipient nephropathy associated ?? with diabetes mellitus or hypertension. Stress, exercise,hematuria, ?? and urinary tract infection may also produce elevated results. If clinically indicated, confirm with ?24 Hour Albumin to Creatinine Ratio. ?? Laurence BERUMEN URINE [facility] [address] [place] [address], * LIPID PANEL W REFLEX MEASURED LDL (09/11/2023 2:24 PM CDT) [facility] CHOLESTEROL,TOTAL 154 100 - 199 mg/dL 09/12/2023 3:44 AM CDT [facility] Comment: Cholesterol, Total Reference Ranges Desirable <200 mg/dL Borderline 200-239 mg/dL High >=240 mg/dL TRIGLYCERIDES 69 <150 mg/dL 09/12/2023 3:44 AM CDT [facility] HDL CHOLESTEROL 50 >40 mg/dL 3:44 AM CDT [facility] NON-HDL CHOLESTEROL 104 <145 mg/dl 09/12/2023 3:44 AM CDT [facility] CHOL/HDL RATIO 3.08 <4.50 09/12/2023 3:44 AM CDT [facility] LDL CHOLESTEROL 90 <=130 mg/dL 09/12/2023 3:44 AM CDT [facility] VLDL CHOLESTEROL 14 <=30 mg/dL 09/12/2023 3:44 AM CDT [facility] PROVIDER ORDERED STATUS RANDOM 09/12/2023 3:44 AM CDT [facility] Blood BLOOD SPECIMEN / Unknown Venipuncture / Unknown 09/11/2023 2:24 PM CDT 09/11/2023 2:25 PM CDT Laurence BERUMEN CHEMISTRY Performing Organization Address City/[facility]/ZIP Co de Phone Number [facility] [address] [place] [address], [place] * TSH (09/11/2023 2:24 PM CDT) TSH 1.36 0.27 - 4.20 uIU/mL 09/12/2023 3:44 AM CDT [facility] Blood BLOOD SPECIMEN / Unknown Venipuncture / Unknown 09/11/2023 2:24 PM CDT 09/11/2023 2:25 PM CDT Narrative [facility] - 09/12/2023 3:44 AM CDT In Adults, TSH values between 5.00 and 10.00 uIU/ml do not necessarily indicate the presence of Hypothyroidism. Correlation with clinical findings such as presence of goiter and/or Thyroperoxidase (TPO) Antibody may be helpful. For more information please refer to JESSICA 2004; 291: [phone]. Laurence BERUMEN CHEMISTRY Performing Organization Address City/[facility]/ZIP Co de Phone Number [facility] [address] [place] [address], [place] * (ABNORMAL) IRON PLUS IRON BINDING CAP (09/11/2023 2:24 PM CDT) IRON 39 37 - 145 ug/dL 09/13/2023 2:03 PM CDT [facility] UIBC (UNSATURATED) 334 112 - 347 ug/dL 09/13/2023 2:03 PM CDT [facility] IRON BINDING CAPACITY 373 250 - 400 ug/dL 09/13/2023 2:03 PM CDT [facility] IRON,% SATURATION 10(L) 14 - 50 % 09/13/2023 2:03 PM CDT [facility] Blood BLOOD SPECIMEN / Unknown Venipuncture / Unknown 09/11/2023 2:24 PM CDT 09/11/2023 2:25 PM CDT Laurence BERUMEN CHEMISTRY Performing Organization Address [facility] de Phone Number [facility] [address] [place] [address], * HEMOGLOBIN A1C MONITORING (POCT) (09/11/2023 2:24 PM CDT) Pathologist [facility] HEMOGLOBIN A1C MONITORING (POCT) 5.6 <=6.4 % 09/11/2023 2:38 PM CDT [facility] Blood BLOOD SPECIMEN / Unknown Venipuncture / Unknown 09/11/2023 2:24 PM CDT 09/11/2023 2:25 PM CDT Narrative [facility] - 09/11/2023 2:38 PM CDT ? (<=6.9%) [...] Untreated Anemias, Splenectomy ? Laurence BERUMEN CHEMISTRY Performing Organization Address [facility] de Phone Number [facility] [address] [place] [address], * FERRITIN (09/11/2023 2:24 PM CDT) [facility] FERRITIN 20.2 15.0 - 150.0 ng/mL 09/13/2023 2:03 PM CDT [facility] Blood BLOOD SPECIMEN / Unknown Venipuncture / Unknown 09/11/2023 2:24 PM CDT 09/11/2023 2:25 PM CDT Laurence [facility]ERUMEN CHEMISTRY [facility] [address] [place] [address], * (ABNORMAL) COMP METABOLIC PANEL (09/11/2023 2:24 PM CDT) Only the most recent of2 resultswithin the time period is included. SODIUM 139 136 - 145 mmol/L 09/12/2023 3:44 AM CDT [facility] POTASSIUM 4.3 3.5 - 5.1 mmol/L 09/12/2023 3:44 AM CDT [facility] LABORATORY CHLORIDE 99 98 - 107 mmol/L 09/12/2023 3:44 AM T [facility] CO2,TOTAL 30(H) 22 - 29 mmol/L 09/12/2023 3:44 AM CDT [facility] ANION GAP 10 5 - 18 09/12/2023 3:44 AM T [facility] GLUCOSE 107(H) 70 - 99 mg/dL 09/12/2023 3:44 AM CDT [facility] CALCIUM 9.5 8.6 - 10.0 mg/dL 09/12/2023 3:44 AM T [facility] BUN 7 6 - 20 mg/dL 09/12/2023 3:44 AM T [facility] CREATININE 0.57 0.50 - 0.90 mg/dL 09/12/2023 3:44 AM T [facility] BUN/CREAT RATIO 12 10 - 20 3:44 AM T [facility] eGFR >90 >90 mL/min/1.7 3m2 09/12/2023 3:44 AM T [facility] Comment:As of 2021, eG FR is calculated by the CKD-EPI creatinine equation without race adjustment. ??eGFR can be influenced by muscle mass, exercise, and diet. ??The reported eGFR is an estimation only and is only applicable if the renal function is stable. ALBUMIN 4.4 4.0 - 4.9 g/dL 09/12/2023 3:44 AM CDT [facility] PROTEIN,TOTAL 7.5 6.0 - 8.0 g/dL 09/12/2023 3:44 AM CDT [facility] BILIRUBIN,TOTAL 0.3 0.0 - 1.2 mg/dL 09/12/2023 3:44 AM CDT [facility] ALK PHOSPHATASE 157(H) 35 - 104 IU/L 09/12/2023 3:44 AM CDT [facility] ALT (SGPT) 28 10 - 35 IU/L 09/12/2023 3:44 AM CDT [facility] AST (SGOT) 35 10 - 35 IU/L 09/12/2023 3:44 AM CDT [facility] Blood BLOOD SPECIMEN / Unknown Venipuncture / Unknown 09/11/2023 2:24 PM CDT 09/11/2023 2:25 PM CDT Laurence BERUMEN CHEMISTRY [facility] [address] [place] [address], * US RENAL AND BLADDER COMPLETE (09/11/2023 [...] 11:29:26 AM (Electronically Signed) Nga White MD * SUPRAPUBIC TUBE PLACEMENT (08/03/2023 2:46 PM [...] ??Pain and infection ??Alternatives discussed: ??No treatment [place] protocol: ??Procedure explained and questions answered to [...] complications Lane BERUMEN PROCEDURE [address] * BLOOD CULTURE X2 (08/03/2023 1:25 PM CDT) Only the most recent of2 resultswithin the time period is included. CULTURE No Growth. 08/08/2023 6:59 PM CDT [facility] Blood BLOOD SPECIMEN / Unknown Butterfly / Unknown 08/03/2023 1:25 PM CDT 08/03/2023 1:[address] BERUMEN MICROBIOLOG Y Performing Organization Address [facility] Co de Phone Number [facility] [address] [place] [phone] * LACTATE VENOUS (08/03/2023 1:17 PM CDT) LACTATE,VENOUS 1.1 0.5 - 2.0 mmol/L 08/03/2023 1:53 PM CDT [facility] Blood BLOOD SPECIMEN / Unknown Butterfly / Unknown 08/03/2023 1:17 PM CDT 08/03/2023 1:[address] BERUMEN CHEMISTRY Performing Organization Address [facility]/State/ZIP Co de Phone Number [facility] [address] [place] [address] * (ABNORMAL) PROTIME-INR (08/03/2023 1:17 PM CDT) INR 1.2 <1.3 08/03/2023 1:43 PM CDT [facility] PROTIME 12.9(H) 10.3 - 12.3 sec 08/03/2023 1:43 PM CDT [facility] Blood BLOOD SPECIMEN / Unknown Butterfly / Unknown 08/03/2023 1:17 PM CDT 08/03/2023 1:33 PM CDT Narrative [facility] - 08/03/2023 1:43 PM CDT [...] patient is on [facility]. Lane BERUMEN HEMATOLOGY [facility] [address] [place] [address] * XR CHEST 1 VIEW PORTABLE (08/03/2023 [...] 08/03/2023 1:08:07 PM (Electronically Signed) Lane BERUMEN [facility] DAVID GING * US BREAST UNILATERAL LEFT [...] 11:47:56 AM CRL:[id number] Laurence BERUMEN US * XR MAMMO KAYLEE BILAT SCREEN [...] care provider. XR MAMMO KAYLEE BILAT SCREEN [[id number]] CLINICAL HISTORY: ??This is an asymptomatic 47 [...] carly Non-React carly 09/23/2021 4:44 PM CDT [facility] Comment:Antibodies to HCV no t detected; does not exclude the possibility of exposure to HCV. Blood BLOOD SPECIMEN / Unknown Venipuncture / Unknown 09/20/2021 11:11 PM CDT 09/20/2021 11:15 PM CDT Bela Chávez MD [facility] [address] [place] [address], * ANTI HIV 1/2 (09/20/2021 11:11 PM CDT) HIV-1/HIV-2 ANTIBODY Non-Reacti ve Non-Reacti ve 09/23/2021 6:18 PM CDT [facility] Comment:HIV-1 p24 and HIV-1/ HIV-2 Ab not detected. Blood BLOOD SPECIMEN / Unknown Venipuncture / Unknown 09/20/2021 11:11 PM CDT 09/20/2021 11:15 PM CDT Bela Chávez MD [facility] [address] [place] [address], from Last 3 Months or Most Recently Relevant to Health Maintenance Advance Directives Documents on File Type Date Recorded Patient Plate [employer] Hand Expl anation Healthcare Directive 12/15/2022 023 POLST 12/15/2022 Healthcare Directive 09/22/2022 023 * Full Code (Latest Code Status on File) Date Activated Date Inactivated Comments 09/14/2023 12:14 AM 09/14/2023 2:34 PM Question Answer Comments Code Status Discussion: Reviewed Preferences * Full Code Date Activated Date Inactivated Comments 06/02/2023 2:28 [...] Intubation Drug Protocol: No Restrictions Care Teams Manufacturing Plant Manager Relationship Specialty Start Date End Date Laurence Mujica PA [address] [place] [address] PCP - General Physician Time Clock Repairer 07/16/14 Yumiko Garcia NP [address] [place] [address] Psychiatry Nurse Practitioner 04/07/16 Nga White MD [address] [place] [address] [place] [address] Surgery - Urology 06/15/22 [facility] [address] [address] 04/30/23 [facility] [address] [place] [id number] 04/30/23
--- OUTSIDE RECORDS SUMMARY | 2023-09-26 10:58 | XMS_ITS | Encounter Summary ---
Author Organization [facility] Address [address] [place] [address] Care Team Providers Care Dining Room Tables Set Up Attendant Name Role Phone Elsewhere, Pcp Primary Care Provider Unavailabl e Encounter Details Date Type Department Care Team (Late st Contact Info) Description 01/11/2004 Historical Ophthalmology [facility] Esequiel Reyes M.D. Social History Tobacco Use Types Packs/Day Years Used Date Smoking Tobacco: Never Assessed Sex and Gender Information Value Date Recorded Sex Assigned at Female 01/25/2022 2:30 PM EYE SPECIALIST Gender Identity Female 01/25/2022 2:30 PM EYE SPECIALIST Sexual Orientation Straight 01/25/2022 2: 30 PM EYE SPECIALIST documented as of this encounter Progress [...] planitis L CDM Reports - EYEGEN Id: [id number] Status: Fnl documented in this encounter Plan of Treatment Not on file documented as of this encounter Visit Diagnoses Not on filedocumented in this encounter Additional Health Concerns Infection Onset Date Last Indicated Resolved Time COVID19 Pending 12/17/2020 12/17/2020 01/06/2021 4 :54 AM EYE SPECIALIST documented as of this encounter Care Teams Dining Room Tables Set Up Attendant Relationship Specialty Start Date End Date Elsewhere, Pcp PCP - General Family Medicine 12/19/20 documented as of this encounter
--- OUTSIDE RECORDS SUMMARY | 2023-09-26 10:58 | XMS_ITS | Clinical Summary ---
Author Organization [facility] Address [address] [place] [address] Care Team Providers Care In Home Sales Representative Name Role Phone Roddy Trevino Primary Care Provider [phone] Allergies Active Allergy Reactions Criticality Noted Date [...] (198 lb 9.6 oz) 04/10/2012 9:25 AM NURSING SECRETARY Height 171 cm (5' 7.32) 04/10/2012 9:2 5 AM NURSING SECRETARY Body Mass Index 30.81 04/10/2012 9:25 AM NURSING SECRETARY Plan of Treatment Not on file Care Teams In Home Sales Representative Relationship Specialty Start Date End Date Roddy Trevino PCP - General 12/14/10
--- OUTSIDE RECORDS SUMMARY | 2023-09-26 10:58 | XMS_ITS | Encounter Summary ---
Author Organization [facility] Address [address] [place] [address] Care Team Providers Care Pumpman Name Role Phone Elsewhere, Pcp Primary Care Provider Unavailabl e Encounter Details Date Type Department Care Team (Late st Contact Info) Description 01/22/2004 Historical Ophthalmology [facility] Roddy Palmer M.D. [address] [place] [address] Social History Tobacco Use Types Packs/Day Years Used Date Smoking Tobacco: Never Assessed Sex and Gender Information Value Date Recorded Sex Assigned at Female 01/25/2022 2:30 PM IC ENGINEER Gender Identity Female 01/25/2022 2:30 PM IC ENGINEER Sexual Orientation Straight 01/25/2022 2: 30 PM IC ENGINEER documented as of this encounter Progress [...] from a refration. Will continue prednisolone at [facility], recheck 3 weeks with refraction. DIAGNOSIS #1 Episcleritis, scleritis #2 Optic atrophy R #3 Pars planitis L CDM Reports - EYEGEN Id: [id number] Status: Fnl documented in this encounter Plan of Treatment Not on file documented as of this encounter Visit Diagnoses Not on filedocumented in this encounter Additional Health Concerns Infection Onset Date Last Indicated Resolved Time COVID19 Pending 12/17/2020 12/17/2020 01/06/2021 4 :54 AM IC ENGINEER documented as of this encounter Care Teams Pumpman Relationship Specialty Start Date End Date Elsewhere, Pcp PCP - General Family Medicine 12/19/20 documented as of this encounter
--- OUTSIDE RECORDS SUMMARY | 2023-09-26 10:58 | XMS_ITS | Encounter Summary ---
Author Organization [facility] Address [address] [place] [address] Care Team Providers Care Lens Molding Equipment Operator Name Role Phone Elsewhere, Pcp Primary Care Provider Unavailabl e Encounter Details Date Type Department Care Team (Late st Contact Info) Description 03/11/2002 Historical Ophthalmology [facility] Carlos Zendejas M.D. [address] [facility] [place] [address] Social History Tobacco Use Types Packs/Day Years Used Date Smoking Tobacco: Never Assessed Sex and Gender Information Value Date Recorded Sex Assigned at Female 01/25/2022 2:30 PM ADVERTISING SALES REPRESENTATIVE Gender Identity Female 01/25/2022 2:30 PM ADVERTISING SALES REPRESENTATIVE Sexual Orientation Straight 01/25/2022 2: 30 PM ADVERTISING SALES REPRESENTATIVE documented as of this encounter Progress Notes [...] rechek prn CDM Reports - EYEGEN Id: [id number] Status: Fnl documented in this encounter Plan of Treatment Not on file documented as of this encounter Visit Diagnoses Not on filedocumented in this encounter Additional Health Concerns Infection Onset Date Last Indicated Resolved Time COVID19 Pending 12/17/2020 12/17/2020 01/06/2021 4 :54 AM ADVERTISING SALES REPRESENTATIVE documented as of this encounter Care Teams Lens Molding Equipment Operator Relationship Specialty Start Date End Date Elsewhere, Pcp PCP - General Family Medicine 12/19/20 documented as of this encounter
--- OUTSIDE RECORDS SUMMARY | 2023-09-26 10:58 | XMS_ITS | Encounter Summary ---
Author Organization [facility] Address [address] [place] [address] Care Team Providers Care Cash Sales Audit Clerk Name Role Phone Elsewhere, Pcp Primary Care Provider Unavailabl e Encounter Details Date Type Department Care Team (Late st Contact Info) Description 01/07/2004 Historical Ophthalmology [facility] Esequiel Reyes M.D. Social History Tobacco Use Types Packs/Day Years Used Date Smoking Tobacco: Never Assessed Sex and Gender Information Value Date Recorded Sex Assigned at Female 01/25/2022 2:30 PM VISUAL DISPLAY MANAGER Gender Identity Female 01/25/2022 2:30 PM VISUAL DISPLAY MANAGER Sexual Orientation Straight 01/25/2022 2: 30 PM VISUAL DISPLAY MANAGER documented as of this encounter Progress [...] #4 Photophobia CDM Reports - EYEGEN Id: [id number] Status: Fnl documented in this encounter Plan of Treatment Not on file documented as of this encounter Visit Diagnoses Not on filedocumented in this encounter Additional Health Concerns Infection Onset Date Last Indicated Resolved Time COVID19 Pending 12/17/2020 12/17/2020 01/06/2021 4 :54 AM VISUAL DISPLAY MANAGER documented as of this encounter Care Teams Cash Sales Audit Clerk Relationship Specialty Start Date End Date Elsewhere, Pcp PCP - General Family Medicine 12/19/20 documented as of this encounter
== END 2023-09-26 10:55 | disposition home or self-care (01) ==
LOC: WOUND 10:54
PROVIDERS: PCP Physician Assistant; Visit Provider Surgery
DX: T81.31XD Disruption of external operation (surgical) wound, not elsewhere classified, subsequent encounter (principal); G35 Multiple sclerosis
CPT/HCPCS: G0463

== ENCOUNTER 2024-07-06 09:07 | Outpatient (CLI) | payer OTHER, SELFPAY | END 2024-07-06 09:08 | disposition home or self-care (01) | LOC: AMB 07-09 15:58 | PROVIDERS: PCP Physician Assistant; Visit Provider Family Medicine | DX: R10.9 Unspecified abdominal pain (principal) | CPT/HCPCS: A0425; A0427 ==

== ENCOUNTER 2024-08-15 08:32 | Outpatient (CLI) | payer OTHER, SELFPAY | END 2024-08-15 08:33 | disposition home or self-care (01) | PROVIDERS: PCP Physician Assistant; Visit Provider Family Medicine | DX: R10.9 Unspecified abdominal pain (principal); T85.9XXA Unspecified complication of internal prosthetic device, implant and graft, initial encounter | CPT/HCPCS: A0425; A0427 ==

== ENCOUNTER 2024-10-01 10:39 | Outpatient (CLI) | payer OTHER, SELFPAY | END 2024-10-01 10:40 | disposition home or self-care (01) | LOC: AMB 10-02 15:32 | PROVIDERS: PCP Physician Assistant; Visit Provider Family Medicine | DX: M54.9 Dorsalgia, unspecified (principal) | CPT/HCPCS: A0425; A0427 ==

== ENCOUNTER 2024-10-27 13:56 | Outpatient (CLI) | payer OTHER, SELFPAY | END 2024-10-27 13:57 | disposition home or self-care (01) | PROVIDERS: PCP Physician Assistant; Visit Provider Family Medicine | DX: R10.9 Unspecified abdominal pain (principal) | CPT/HCPCS: A0425; A0427 ==